=== PATIENT | male | born 1940 | race Caucasian/White ===

== ENCOUNTER 2019-05-25 09:47 | Observation (INO) | payer MEDICARE, BC, SELFPAY ==
[2019-05-25 10:00] VITALS: BMI 27.7
[2019-05-25 10:02] VITALS: BP 124/77; PULSE 82; RESP 18; TEMP 37.1; O2SAT 97
--- NOTE | 2019-05-25 10:07 | ED_ITS ---
Entered by Merline Coburn, acting as scribe for HPI - General Adult General: Chief complaint: General Medical Stated complaint: BLACK STOOL Time Seen by Provider: 05/25/19 09:49 Source: patient Mode of arrival: ambulatory Limitations: no limitations History of Present Illness: HPI narrative: 78 yo male presents with dark stools and diarrhea. pt states this started 2 days ago. pt states nothing makes this better or worse. pt denies any other symptoms at this time. pt denies nausea or vomiting. MD complaint: black stools Onset (ago): day(s) Location: buttocks Radiation: non-radiation Severity: moderate Pain Consistency: constant Relieving factors: none Exacerbating factors: none Associated symptoms: Reports other (diarrhea, black stools); Deny chest pain, dyspnea, headache(s) or rash Treatments prior to arrival: none Review of Systems General: Reports: 10 or more systems reviewed and unremarkable except in HPI and below Const: Denies: fever, chills, body aches or change in appetite Eyes: Denies: blurry vision or eye discomfort ENMT: Denies: throat pain or dental pain Card: Denies: chest pain Resp: Denies: shortness of breath GI: Reports: diarrhea and black tarry stool Musc: Denies: neck pain or back pain Skin/Breast: Denies: rash Neuro: Denies: headache Psych: Denies: depression Bart/Lymph: Denies: easy bruising All/Imm: Denies: hives PFS ED PFSH: Medical History (Updated 05/25/19 @ 12:23 by Naayna Aguilar MD) Aortic stenosis CAD (coronary artery disease) Chronic anticoagulation Chronic kidney disease GERD (gastroesophageal reflux disease) Hiatal hernia History of Sindy-Kirk syndrome History of pulmonary embolism Hypertension Insomnia Systolic congestive heart failure Thoracic aortic aneurysm Surgical History (Updated 05/25/19 @ 11:55 by Bekah Urena DO) History of cholecystectomy History of coronary artery bypass graft 1996 in 2010 History of coronary artery stent placement Reports a total of 3 stents after her last CABG done in [facility] Dr. Rogers [facility] Family History (Updated 05/25/19 @ 11:57 by Bekah Urena DO) Mother Diabetes Father Gallbladder disease Social History Smoking and tobacco status: never smoked Physical Exam Const: COMMON NORMALS: no apparent distress, oriented x3 and healthy appearing HENMT: COMMON NORMALS: normocephalic and head/scalp atraumatic HEAD & SCALP: normocephalic and atraumatic Eye: COMMON NORMALS: PERRL and EOMs intact bilaterally PUPIL: Yes PERRL Neck/C-Spine: COMMON NORMALS: full ROM and supple Chest: COMMONS NORMALS: inspection of chest normal and palpation of chest n ormal Resp: COMMON NORMALS: normal respiratory effort, no retractions, no use of accessory muscles and clear to auscultation bilaterally AUSCULTATION: clear to auscultation bilaterally Cardio: COMMON NORMALS: regular rate, regular rhythm and no murmurs RATE: regular rate RHYTHM: regular rhythm GI: COMMON NORMALS: soft to palpation and non-tender INSPECTION: Yes normal to inspection PALPATION: Yes soft RECTAL EXAM: Yes heme positive stool Extremity: COMMON NORMALS: normal to inspection and full ROM Neuro: COMMON NORMALS: oriented x3, moves all extremities and no focal motor deficits Psych: COMMON NORMALS: mental status grossly normal, thought process normal and cooperative THOUGHT PROCESS: normal thought process Skin: COMMON NORMALS: no rashes or lesions noted and no wounds GENERAL SKIN EXAM: no rashes or lesions noted Course Vital Signs: Vital signs: Vital Signs Temperature 98.7 F 05/25/19 10:02 Pulse Rate 82 05/25/19 10:02 Respiratory Rate 18 05/25/19 10:02 Blood Pressure 124/77 05/25/19 10:02 Pulse Oximetry 97 05/25/19 10:02 MDM - General Adult MDM Narrative: Medical decision making narrative: Patient presents here with upper GI bleed. Patient's rectal exam here showed brown stool that was Hemoccult positive. Bleeding is seem to slowed and has not major at this time. Patient is on Xarelto and will admit for observation to make sure he does not rebleed or hemoglobin drops as he is on thinners. Lab Data: Labs: Lab Results 05/25/19 05/25/19 05/25/19 Range/Units 10:20 10:20 10:20 WBC 7.6 (4.0-10.0) 10^3/ uL RBC 4.04 L (4.1-5.3) 10^6/u L Hgb 13.3 (11.7-16.6) g/dL Hct 39.1 L (42.0-52.0) % MCV 96.8 H (80-94) fL MCH 32.9 (28.0-34.0) pg MCHC 34.0 (30.0-36.0) g/dL RDW 12.7 (12.1-15.1) % Plt Count 156 (130-400) 10^3/c mm MPV 10.9 H (7.4-10.4) fL Neut % (Auto) 74.0 % Lymph % (Auto) 12.8 % [place]osa % (Auto) 8.2 % Eos % (Auto) 4.3 % Baso % (Auto) 0.4 % Neut # (Auto) 5.6 (1.8-7.7) 10^3/u L Lymph # (Auto) 1.0 (0.8-4.8) 10^3/u L [place] # (Auto) 0.6 (0.2-0.9) 10^3/u L Eos # (Auto) 0.3 (0.0-0.8) 10^3/u L Baso # (Auto) 0.0 (0.0-0.1) 10^3/u L Nucleated RBC % (a uto) 0 % Nucleated RBCs # 0.0 /100WBC PT 20.30 H (10.5-13.3) SECO NDS INR 1.67 H (0.8-1.2) Sodium 144 (136-145) mmol/L Potassium 3.8 (3.5-5.1) mmol/L Chloride 107 (98-107) mmol/L Carbon Dioxide 30 H (22-29) mmol/L Anion Gap 10.8 (5-19) BUN 38 H (8-23) mg/dL Creatinine 1.6 H (0.7-1.2) mg/dL Glucose 171 H (65-115) mg/dL Calculated Osmolal ity 300 H (285-295) mOsm/k g Calcium 9.3 (8.5-10.5) mg/dL Total Bilirubin 0.5 (0.15-1.2) mg/dL AST 19 (0-40) U/L ALT 13 (0-41) U/L Alkaline Phosphata se 73 (40-130) IU/L Total Protein 7.0 (6.6-8.7) g/dL Albumin 4.1 (3.5-5.2) g/dL Globulin 2.9 (1.3-4.6) g/dL Blood Type Rho(D) Type Antibody Screen 05/25/19 Range/Units 10:20 WBC (4.0-10.0) 10^3/ uL RBC (4.1-5.3) 10^6/u L Hgb (11.7-16.6) g/dL Hct (42.0-52.0) % MCV (80-94) fL MCH (28.0-34.0) pg MCHC (30.0-36.0) g/dL RDW (12.1-15.1) % Plt Count (130-400) 10^3/c mm MPV (7.4-10.4) fL Neut % (Auto) % Lymph % (Auto) % Coosa % (Auto) % Eos % (Auto) % Baso % (Auto) % Neut # (Auto) (1.8-7.7) 10^3/u L Lymph # (Auto) (0.8-4.8) 10^3/u L [place] # (Auto) (0.2-0.9) 10^3/u L Eos # (Auto) (0.0-0.8) 10^3/u L Baso # (Auto) (0.0-0.1) 10^3/u L Nucleated RBC % (a uto) % Nucleated RBCs # /100WBC PT (10.5-13.3) SECO NDS INR (0.8-1.2) Sodium (136-145) mmol/L Potassium (3.5-5.1) mmol/L Chloride (98-107) mmol/L Carbon Dioxide (22-29) mmol/L Anion Gap (5-19) BUN (8-23) mg/dL Creatinine (0.7-1.2) mg/dL Glucose (65-115) mg/dL Calculated Osmolal ity (285-295) mOsm/k g Calcium (8.5-10.5) mg/dL Total Bilirubin (0.15-1.2) mg/dL AST (0-40) U/L ALT (0-41) U/L Alkaline Phosphata se (40-130) IU/L Total Protein (6.6-8.7) g/dL Albumin (3.5-5.2) g/dL Globulin (1.3-4.6) g/dL Blood Type A Positive Rho(D) Type Positive Antibody Screen Negative Discharge Plan Discharge Patient Disposition: Admitted As Inpatient Clinical Impression: Acute upper GI bleed Condition: Stable Referrals: Aicha Moran MD [Family Provider] - Coding Level of Care Code ED Asphalt Machine Operator for Chg Fwd Exam Comprehensive The documentation recorded by the Almas gerardo Bridget Annette, accurately reflects the service I personally performed and the decisions made by , Nayana Aguilar MD May 25, 2019 09:47
[2019-05-25 10:27] LABS: Basophils % 0.4 %; Eosinophils # 0.3 10^3/uL (0.0-0.8); Eosinophils % 4.3 %; Hematocrit 39.1 % (42.0-52.0); Hemoglobin 13.3 g/dL (11.7-16.6); Lymphocytes % 12.8 %; Mean Corpuscular Hemoglobin 32.9 pg (28.0-34.0); Mean Corpuscular Volume 96.8 fL (80-94); Mean Platelet Volume 10.9 fL (7.4-10.4); Monocytes # 0.6 10^3/uL (0.2-0.9); Monocytes % 8.2 %; Neutrophils # 5.6 10^3/uL (1.8-7.7); Nucleated Red Blood Cells % 0 %; Platelet Count 156 10^3/cmm (130-400); Red Blood Count 4.04 10^6/uL (4.1-5.3); Red Cell Distribution Width 12.7 % (12.1-15.1); White Blood Count 7.6 10^3/uL (4.0-10.0)
[2019-05-25] MEDS: pantoprazole 40 mg SDV 80 MG IVP (10:32)
[2019-05-25] MEDS: pantoprazole 40 MG in sodium chloride 0.9% (plus) 100 ML 20 MG IV (10:32)
[2019-05-25 10:36] LABS: INR 1.67 (0.8-1.2)
[2019-05-25 10:42] LABS: Alanine Aminotransferase 13 U/L (0-41); Albumin Level 4.1 g/dL (3.5-5.2); Alkaline Phosphatase 73 IU/L (40-130); Anion Gap 10.8 (5-19); Aspartate Amino Transferase 19 U/L (0-40); Blood Urea Nitrogen 38 mg/dL (8-23); Calcium 9.3 mg/dL (8.5-10.5); Carbon Dioxide 30 mmol/L (22-29); Chloride 107 mmol/L (98-107); Globulin 2.9 g/dL (1.3-4.6); Glucose 171 mg/dL (65-115); Osmolality Calculated 300 mOsm/kg (285-295); Potassium 3.8 mmol/L (3.5-5.1); Sodium 144 mmol/L (136-145); Total Bilirubin 0.5 mg/dL (0.15-1.2)
--- NOTE | 2019-05-25 11:51 | P.HP_ITS ---
Providers/Chief Complaint Admitting Physician: Bekah Urena DO Chief Complaint: BLACK STOOL History of Present Illness Eliza Grimm is a 78 year old male with a past medical history of aortic stenosis, coronary artery disease and systolic congestive heart failure as well as history of pulmonary embolism that presented to the emergency department today for melanotic stools. Patient reported that Saturday evening he woke up and began having dark tarry like stools. He reported 2 episodes that evening and has continued to have episodes. He thought that it was going to get slightly better but it continued to progress. He stated that he had another episode last night and therefore came into the ER for further evaluation and treatment. He reports that he is on a blood thinner, Xarelto due to a history of pulmonary embolism. He denies any history of GI bleed in the past. He denies any fevers or chills, no abdominal pain. He denies any bright red blood per rectum. He does report that he had a history of a Sindy-Kirk tear many years ago after trying to swallow an apple, he continues to have difficulty swallowing. He reported he did have one episode late last week where he was trying to swallow meat and became choked up, he is uncertain if this contributed to what is currently going on. Patient was seen and evaluated in the emergency department and placed on observation due to concern for GI bleed with reported melanotic stools over the past 2 days while on blood thinners. Review of Systems Const: Denies: fever or chills Eyes: Denies: change in vision ENMT: Denies: nasal congestion Card: Denies: chest pain, palpitations or edema Resp: Denies: shortness of breath, productive cough or coughing up blood GI: Reports: black tarry stool; Denies: abdominal pain, nausea, vomiting, diarrhea, constipation or blood in stool : Denies: painful urination or blood in urine Musc: Denies: extremity pain or muscle cramps Skin/Breast: Reports: rash (Mild erythematous rash on the medial aspect of the right lower extremity); Denies: new lesion Neuro: Denies: headache or dizziness Psych: Denies: anxiety or depression Endo: Denies: excessive urination or hot flashes Bart/Lymph: Denies: easy bruising or easy bleeding Medications/Allergies Home Medications Medication Instructions Recorded Confirmed Last Taken Type amlodipine 5 mg PO DAILY 05/25/19 05/25/19 05/25/19 History aspirin 81 mg PO DAILY 05/25/19 05/25/19 05/24/19 History carvedilol 6.25 mg PO BID 05/25/19 05/25/19 05/25/19 History furosemide 40 mg PO DAILY 05/25/19 05/25/19 05/25/19 History isosorbide mononitrate 30 mg PO DAILY 05/25/19 05/25/19 05/25/19 History rivaroxaban [Xarelto] 20 mg PO DAILY 05/25/19 05/25/19 05/24/19 History tamsulosin 0.4 mg PO DAILY 05/25/19 05/25/19 05/25/19 History Allergies Allergy/AdvReac Type Severity Reaction Status Date / Time nitroglycerin Allergy Unknown Unknown Verified 05/25/19 10:59 rosuvastatin [From Crestor] Allergy Unknown Unknown Verified 05/25/19 10:59 PFSH Acute PFSH: Medical History (Updated 05/25/19 @ 12:23 by Nayana Aguilar MD) Aortic stenosis CAD (coronary artery disease) Chronic anticoagulation Chronic kidney disease GERD (gastroesophageal reflux disease) Hiatal hernia History of Sindy-Kirk syndrome History of pulmonary embolism Hypertension Insomnia Systolic congestive heart failure Thoracic aortic aneurysm Surgical History (Updated 05/25/19 @ 11:55 by Bekah Urena DO) History of cholecystectomy History of coronary artery bypass graft 1996 in 2010 History of coronary artery stent placement Reports a total of 3 stents after her last CABG done in [facility] Dr. Rogers [facility] Family History (Updated 05/25/19 @ 11:57 by Bekah Urena DO) Mother Diabetes Father Gallbladder disease Social History (Updated 05/25/19 @ 12:42 by Bekah Urena DO) Smoking and tobacco status: never smoked Alcohol intake: never Substance/Drug Use: never Caregiver/support person: Yes Household members: spouse Vitals/I&O/Wt Last Vital Signs Temp 98.7 F 05/25/19 10:02 Pulse 82 05/25/19 10:02 Resp 18 05/25/19 10:02 BP 124/77 05/25/19 10:02 Pulse Ox 97 05/25/19 10:02 Weight last 48 hrs Weight 95.254 kg Physical Exam Const: COMMON NORMALS: oriented x3 and alert GENERAL APPEARANCE: cooperative ORIENTATION/CONSCIOUSNESS: Yes awake, Yes oriented to person, Yes oriented to place and Yes oriented to time HENMT: COMMON NORMALS: normocephalic and head/scalp atraumatic HEAD & SCALP: normocephalic and atraumatic Eye: COMMON NORMALS: PERRL PUPIL: Yes PERRL Neck/C-Spine: COMMON NORMALS: supple GENERAL: Yes normal visual inspection Resp: COMMON NORMALS: normal respiratory effort and clear to auscultation bilaterally EFFORT & INSPECTION: Yes able to speak in complete sentences AUSCULTATION: clear to auscultation bilaterally, no rhonchi and no wheezes Cardio: COMMON NORMALS: regular rate and regular rhythm RATE: regular rate RHYTHM: regular rhythm HEART SOUNDS: murmur systolic Intensity: III/ GI: COMMON NORMALS: soft to palpation and non-tender INSPECTION: No abdominal distension AUSCULTATION: Yes normoactive bowel sounds PALPATION: Yes soft : COMMON NORMALS: Yes no CVA tenderness Extremity: COMMON NORMALS: no clubbing, cyanosis or edema and no calf tenderness Neuro: COMMON NORMALS: oriented x3, CN's II-XII intact bilaterally, moves all extremities and no focal motor deficits SENSORIUM/ORIENTATION: Yes alert, Yes oriented to person, Yes oriented to place and Yes oriented to time SPEECH: speech normal Psych: COMMON NORMALS: mental status grossly normal and cooperative Skin: NARRATIVE SKIN EXAM: Mild erythema to the medial calf on the right leg Data : 05/25/19 10:20 05/25/19 10:20 A&P Assessment and plan (1) Melena: Reported melanotic stools for the past 2 days. Hemoglobin stable at this time Due to concern for patient being on chronic anticoagulation with Xarelto due to history of pulmonary embolism will place in observation and obtain serial H&H Patient reports history of Sindy-Kirk tear, episode late last week where he was chewing meat and became choked. Due to concern with swallowing and this episode along with concern for melanotic stools and the possibility of an upper GI bleed Dr. Davila, general surgery, was consulted. Appreciate recommendations and assistance in patient's care. Possible EGD for further evaluation Continue on IV PPI every 12 hours Transfuse if hemoglobin falls less than 8 due to coronary artery disease Status: Acute Code(s): K92.1 - Melena (2) Chronic anticoagulation: Holding chronic anticoagulation, Xarelto. Patient has a history of subsegmental pulmonary embolism Holding aspirin Status: Acute Code(s): Z79.01 - manager ethics (current) use of anticoagulants Additional A&P Information Coronary artery disease with a history of CABG: Holding aspirin due to above. Continue on Coreg and Imdur Moderate to severe aortic stenosis: Followed closely by cardiology, echocardiogram from 01/21/2019 reviewed Combined systolic and diastolic congestive heart failure: Last echocardiogram showed LVEF of 35%, give very gentle IV fluids but monitor fluid status closely. Is on Lasix and Coreg at home, continue to monitor fluid status closely History of subsegmental pulmonary emboli: Holding Xarelto due to above, this finding was on CTA of the chest on 05/30/2018. Discussed with patient the need for holding of anticoagulation due to concern for GI bleed, he verbalized understanding and agreed with plan Thoracic aortic aneurysm, unchanged on last imaging at 1.6 cm. 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 Baseline creatinine appears to be around 1.3-1.5 Hyperglycemia without prior diagnosis of diabetes, will check hemoglobin A1c BPH: Continue home Flomax DVT prophylaxis: SCDs, no pharmacologic prophylaxis due to concern for GI bleed Diet: Clear liquid diet, n.p.o. at midnight for possible EGD CODE STATUS: Limited resuscitation, DO NOT INTUBATE Attestations Medical Necessity Statement*: Observation due to concern for GI bleed, expected stay less than 2 midnights Coding Level of Care Code Acute Cupola Charger for Chg Fwd Diagnoses Melena K92.1 Chronic anticoagulation Z79.01
--- NOTE | 2019-05-25 13:13 | PM.CONSULT ---
Providers/Reason For Consult Consulting Physican/Specialty*: General Surgery Marco Davila MD Reason for Consult*: Melena. History of Present Illness History of Present Illness Eliza Grimm is a 78 year old male who says he had a normal bowel movement Saturday morning (2 days ago). He then had to get up early in the morning to have a bowel movement and says it was loose and black. Every bowel movement he has had since Saturday night has been black. He denies any heartburn or upper GI symptoms. He has not seen any red blood in his stool. He denies any fevers. He has no known history of peptic ulcer disease. This has never happened to him before. He is on Xarelto at home for history of a pulmonary embolism. He takes it at night and so his last dose was yesterday. The patient does mention that he had a tear in his esophagus a few years ago after trying to swallow a piece of apple. It does not sound like anything had to be done about it but he has had some intermittent swallowing problems ever since. He says he feels like meat and vegetables sometimes get hung up in his esophagus and he has to force them back out. He has never seen any blood, etc. when he has to do this. He denies any known family history of upper GI neoplasia. He does not take NSAIDs on a regular basis. Review of Systems General: Reports: 10 or more systems reviewed and unremarkable except in HPI and below GI: Reports: black tarry stool; Denies: abdominal pain or nausea Neuro: Reports: numbness in extremities (Feet) Meds/Allergies Home Medications and Allergies Home Medications Medication Instructions Recorded Confirmed Type amlodipine 5 mg PO DAILY 05/25/19 05/25/19 History aspirin 81 mg PO DAILY 05/25/19 05/25/19 History carvedilol 6.25 mg PO BID 05/25/19 05/25/19 History furosemide 40 mg PO DAILY 05/25/19 05/25/19 History isosorbide mononitrate 30 mg PO DAILY 05/25/19 05/25/19 History rivaroxaban [Xarelto] 20 mg PO DAILY 05/25/19 05/25/19 History tamsulosin 0.4 mg PO DAILY 05/25/19 05/25/19 History Allergies Allergy/AdvReac Type Severity Reaction Status Date / Time rosuvastatin [From Crestor] Allergy Mild Makes me Verified 05/25/19 13:18 looney nitroglycerin Allergy Unknown Makes me Verified 05/25/19 13:18 wild PFSH Acute PFSH: Medical History (Updated 05/25/19 @ 13:22 by Marco Davila MD) Aortic stenosis CAD (coronary artery disease) Chronic anticoagulation Chronic kidney disease Diverticulosis Dyslipidemia GERD (gastroesophageal reflux disease) Hiatal hernia History of Sindy-Kirk syndrome History of pulmonary embolism Hypertension Insomnia Systolic congestive heart failure Thoracic aortic aneurysm Surgical History (Updated 05/25/19 @ 13:20 by Marco Davila MD) History of cataract surgery Bilateral History of cholecystectomy 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 History of coronary artery stent placement Reports a total of 3 stents after her last CABG done in [facility] Dr. Rogers [facility] History of drainage of abscess Percutaneous, right lower quadrant suspected appendiceal abscess Family History Mother Diabetes Father Gallbladder disease Social History Smoking and tobacco status: never smoked Alcohol intake: never Substance/Drug Use: never Caregiver/support person: Yes Household members: spouse Vitals/I&O/Wt Last Vital Signs Temp 98.7 F 05/25/19 10:02 Pulse 82 05/25/19 10:02 Resp 18 05/25/19 10:02 BP 124/77 05/25/19 10:02 Pulse Ox 97 05/25/19 10:02 Weight last 48 hrs Weight 210 lb Physical Exam Narrative: EXAM NARRATIVE: The patient was encountered in the emergency room. He does not appear to be in any acute distress. The pupils are equal. No carotid bruits are heard. The lungs are clear anteriorly. The patient has an obvious systolic murmur best heard at the left lower sternal border or perhaps over the mitral area. The abdomen is mildly obese but is soft and completely nontender. I cannot palpate any masses. The extremities reveal no edema. Neurologically the patient appears to be grossly intact. A&P Assessment and plan (1) Melena: Hemoglobin is stable. The patient is on Xarelto at home, which is obviously contributing to his current problem. He does have a ongoing history of intermittent dysphagia. I discussed an EGD with him. Risks of endoscopy were gone over. The patient would like to find out what is going on. He is agreeable to an EGD tomorrow. I will make the necessary arrangements. Status: Acute Code(s): K92.1 - Melena (2) Dysphagia: See above. Status: Acute Code(s): R13.10 - Dysphagia, unspecified Coding Level of Care Code Acute Visual Educator for [facility] Fwd Diagnoses Melena K92.1 Dysphagia R13.10
[2019-05-25 14:44] VITALS: BP 148/85; PULSE 75; RESP 14; O2SAT 97
[2019-05-25 15:00] VITALS: BP 135/74; PULSE 64; RESP 16; TEMP 36.7; O2SAT 96
[2019-05-25] MEDS: sodium chloride 0.9% 1,000 ML 30 ML IV (15:42)
[2019-05-25] MEDS: tamsulosin 0.4 mg Capsule PO (15:42)
[2019-05-25 16:00] VITALS: BP 127/70; PULSE 56; RESP 16; TEMP 36.7; O2SAT 96
[2019-05-25 16:07] LABS: Hemoglobin 12.8 g/dL (11.7-16.6)
[2019-05-25 17:25] VITALS: PULSE 70; O2SAT 95
[2019-05-25 17:34] LABS: Estmated Average Glucose 100; Hemoglobin A1C 5.1 % (4.0-6.0)
[2019-05-25] MEDS: carvedilol 6.25 mg Tablet PO (17:42)
[2019-05-25 20:44] LABS: Hematocrit 36.6 % (42.0-52.0); Hemoglobin 12.4 g/dL (11.7-16.6)
[2019-05-25] MEDS: pantoprazole 40 mg SDV IVP (21:57)
[2019-05-25 22:34] VITALS: PULSE 81; O2SAT 94
[2019-05-26] VITALS (7 sets, daily range): BP systolic 112–145; BP diastolic 67–88; PULSE 70–87; RESP 16–22; TEMP 36.6–37.2; O2SAT 93–98
[2019-05-26 02:50] LABS: Basophils % 0.4 %; Eosinophils # 0.3 10^3/uL (0.0-0.8); Eosinophils % 3.8 %; Hematocrit 35.7 % (42.0-52.0); Hemoglobin 12.1 g/dL (11.7-16.6); Lymphocytes % 12.6 %; Mean Corpuscular HGB Conc 33.9 g/dL (30.0-36.0); Mean Corpuscular Hemoglobin 33.2 pg (28.0-34.0); Mean Corpuscular Volume 97.8 fL (80-94); Mean Platelet Volume 11.2 fL (7.4-10.4); Monocytes # 0.8 10^3/uL (0.2-0.9); Monocytes % 10.3 %; Neutrophils # 5.9 10^3/uL (1.8-7.7); Neutrophils % 72.7 %; Nucleated Red Blood Cells % 0 %; Platelet Count 133 10^3/cmm (130-400); Red Blood Count 3.65 10^6/uL (4.1-5.3); Red Cell Distribution Width 12.2 % (12.1-15.1); White Blood Count 8.2 10^3/uL (4.0-10.0)
[2019-05-26 03:08] LABS: Anion Gap 11.8 (5-19); Blood Urea Nitrogen 29 mg/dL (8-23); Carbon Dioxide 26 mmol/L (22-29); Chloride 110 mmol/L (98-107); Glucose 112 mg/dL (65-115); Osmolality Calculated 296 mOsm/kg (285-295); Potassium 3.8 mmol/L (3.5-5.1); Sodium 144 mmol/L (136-145)
--- NOTE | 2019-05-26 06:48 | P.PN_ITS ---
Subjective Subjective: Interval history: No further bowel movement since I talked to the patient yesterday. He has no new upper GI symptoms. Vitals/I&O/Wt Last Vital Signs Temp 99.0 F 05/26/19 06:24 Pulse 70 05/26/19 06:24 Resp 18 05/26/19 06:24 BP 145/82 05/26/19 06:24 Pulse Ox 96 05/26/19 06:24 05/25/19 05/25/19 05/26/19 14:59 22:59 06:59 Intake Total 680 / 680 Output Total 550 / 550 100 / 650 Balance 130 / 130 -100 / 30 Weight last 48 hrs Weight 212 lb 9.6 oz Weight 210 lb Physical Exam Narrative: EXAM NARRATIVE: Exam remains essentially unchanged. Data : 05/26/19 02:43 05/26/19 02:43 A&P Assessment and plan (1) Melena: Hemoglobin remains relatively stable. EGD this morning. Status: Acute Code(s): K92.1 - Melena (2) Dysphagia: See above. Status: Acute Code(s): R13.10 - Dysphagia, unspecified Attestations Medical Necessity Statement*: See admitting service's notation. Coding Level of Care Code Acute Calliope Player for [facility] Fwd Diagnoses Melena K92.1 Dysphagia R13.10
--- NOTE | 2019-05-26 06:51 | P.ANESASSM_ITS ---
Pre-Anesthetic Assessment Pre-Anesthetic Assessment: Height/Weight: Height 1.85 m Weight 96.434 kg Temp Pulse Resp BP Pulse Ox 99.0 F 70 18 145/82 96 05/26/19 06:24 05/26/19 06:24 05/26/19 06:24 05/26/19 06:24 05/26/19 06:24 Preop Diagnosis: melena Proposed Procedure: Operation Date: 05/26/19 07:30 Proposed Procedures p EGD(Not Applicable) - Marco Davila MD Familial anesthetic complications: none Was Beta Jose Ramon taken within 24 hours: Yes Last intake: Intake Last Liquid Date 05/25/19 Last Liquid Time 20:00 Last Solid Date 05/25/19 Last Solid Time 20:00 Social: Social History: No alcohol and No tobacco Exam: Pre-Anes Outpt Exam: alert, oriented x 3, clear to auscultation bilaterally and regular rate & rhythm Airway: Submandibular: WNL Cervical ROM: WNL MP: 1 Dentition: False History/ROS: No significant history except as noted Pulmonary: Pulmonary: SOB Comments: O2 nasal cannula at night history of PE CV/HEM: CV/HEM: CHF and HTN Comments: thoracic aortic aneurysm aortic stenosis : : Chronic renal failure Hepatic: Hepatic: None reported GI: GI: GERD and Hiatus hernia Metabolic: Metabolic: Hyperlipidemia Musc/skel: Musc/skel: Lower Back Pain and Weakness (weakness in legs and feet) Neuropsych: Neuropsych: Dementia Anesthetic Plan: ASA status: 3 Anesthesia: MAC Risk of > 500 ml blood loss (7ml/kg in children): No Meds/Allergies Current Medications: Current Medications Generic Name Dose Route Start Last Admin Trade Name Freq PRN Reason Stop Dose Admin Carvedilol 6.25 mg 05/25/19 18:00 05/25/19 17:42 Coreg PO 6.25 mg BID ESTER Administration Sodium Chloride 1,000 mls @ 30 ml s/hr 05/25/19 15:00 05/25/19 15:42 Sodium Chloride 0.9% IV 30 mls/hr .Q24H ESTER Administration Pantoprazole Sodiu m 40 mg 05/25/19 22:30 05/25/19 21:57 Protonix IVP 40 mg Q12H ESTER Administration Tamsulosin HCl 0.4 mg 05/25/19 15:00 05/25/19 15:42 Flomax PO 0.4 mg DAILY ESTER Administration PFSH Anesthesia PFSH: Medical History (Updated 05/25/19 @ 13:22 by Marco Davila MD) Aortic stenosis CAD (coronary artery disease) Chronic anticoagulation Chronic kidney disease Diverticulosis Dyslipidemia GERD (gastroesophageal reflux disease) Hiatal hernia History of Sindy-Kirk syndrome History of pulmonary embolism Hypertension Insomnia Systolic congestive heart failure Thoracic aortic aneurysm Surgical History (Updated 05/25/19 @ 13:20 by Marco Davila MD) History of cataract surgery Bilateral History of cholecystectomy 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 History of coronary artery stent placement Reports a total of 3 stents after her last CABG done in [facility] History of drainage of abscess Percutaneous, right lower quadrant suspected appendiceal abscess Family History Mother Diabetes Father Gallbladder disease Social History Smoking and tobacco status: never smoked Alcohol intake: never Substance/Drug Use: never Caregiver/support person: Yes Household members: spouse Data Anesthesia CBC & Chem 7: 05/26/19 02:43 05/26/19 02:43 Other Labs: Laboratory Results - last 48 hr 05/25/19 05/25/19 05/25/19 10:20 10:20 10:20 WBC 7.6 RBC 4.04 L Hgb 13.3 Hct 39.1 L MCV 96.8 H MCH 32.9 MCHC 34.0 RDW 12.7 Plt Count 156 MPV 10.9 H Neut % (Auto) 74.0 Lymph % (Auto) 12.8 [place] % (Auto) 8.2 Eos % (Auto) 4.3 Baso % (Auto) 0.4 Neut # (Auto) 5.6 Lymph # (Auto) 1.0 [place] # (Auto) 0.6 Eos # (Auto) 0.3 Baso # (Auto) 0.0 Nucleated RBC % (auto) 0 Nucleated RBCs # 0.0 PT 20.30 H INR 1.67 H Sodium 144 Potassium 3.8 Chloride 107 Carbon Dioxide 30 H Anion Gap 10.8 BUN 38 H Creatinine 1.6 H Glucose 171 H Estimat Average Glucose Hemoglobin A1c Calculated Osmolality 300 H Calcium 9.3 Total Bilirubin 0.5 AST 19 ALT 13 Alkaline Phosphatase 73 Total Protein 7.0 Albumin 4.1 Globulin 2.9 Blood Type Rho(D) Type Antibody Screen 05/25/19 05/25/19 05/25/19 10:20 15:23 15:23 WBC RBC Hgb 12.8 Hct 38.0 L MCV MCH MCHC RDW Plt Count MPV Neut % (Auto) Lymph % (Auto) [place] % (Auto) Eos % (Auto) Baso % (Auto) Neut # (Auto) Lymph # (Auto) [place] # (Auto) Eos # (Auto) Baso # (Auto) Nucleated RBC % (auto) Nucleated RBCs # PT INR Sodium Potassium Chloride Carbon Dioxide Anion Gap BUN Creatinine Glucose Estimat Average Glucose 100 Hemoglobin A1c 5.1 Calculated Osmolality Calcium Total Bilirubin AST ALT Alkaline Phosphatase Total Protein Albumin Globulin Blood Type A Positive Rho(D) Type Positive Antibody Screen Negative 05/25/19 05/26/19 05/26/19 20:40 02:43 02:43 WBC 8.2 RBC 3.65 L Hgb 12.4 12.1 Hct 36.6 L 35.7 L MCV 97.8 H MCH 33.2 MCHC 33.9 RDW 12.2 Plt Count 133 MPV 11.2 H Neut % (Auto) 72.7 Lymph % (Auto) 12.6 [place] % (Auto) 10.3 Eos % (Auto) 3.8 Baso % (Auto) 0.4 Neut # (Auto) 5.9 Lymph # (Auto) 1.0 [place] # (Auto) 0.8 Eos # (Auto) 0.3 Baso # (Auto) 0.0 Nucleated RBC % (auto) 0 Nucleated RBCs # 0.0 PT INR Sodium 144 Potassium 3.8 Chloride 110 H Carbon Dioxide 26 Anion Gap 11.8 BUN 29 H Creatinine 1.4 H Glucose 112 Estimat Average Glucose Hemoglobin A1c Calculated Osmolality 296 H Calcium 9.0 Total Bilirubin AST ALT Alkaline Phosphatase Total Protein Albumin Globulin Blood Type Rho(D) Type Antibody Screen Cardiac Studies: No Data to Display
[2019-05-26] MEDS: sodium chloride 0.9% 1,000 ML 30 ML (07:03)
--- NOTE | 2019-05-26 07:14 | ANE.PACU2 ---
 Inpatient post-anesthesia follow up: Airway intact: Yes Vital signs: Temperature 98.6 F Pulse Rate 78 Respiratory Rate 16 Blood Pressure 126/77 Pulse Oximetry 98 Oxygen Delivery Me thod [ Room Air Current Rate & Del frederick] Oxygen Delivery Me thod Nasal Cannula Oxygen Flow Rate 2 Fraction of Inspir ed Oxygen Hydration adequate: Yes Nausea and vomiting: No Pain level: 1 Mental status: Baseline
--- NOTE | 2019-05-26 08:58 | P.DS_ITS ---
Discharge Providers Date of Admission: 05/25/19 11:42 Date of Discharge: May 26, 2019 Attending Provider at Admission: Bekah Urena DO Attending Provider at Discharge: Bekah Urena DO Diagnoses at Discharge Discharge Diagnosis (1) Melena: Status: Acute (2) Dysphagia: Status: Acute Reason for Visit Reason for Visit: Reason For Visit: BLACK STOOL Hospital Course Hospital Course: Patient was seen and evaluated in the emergency department and placed on observation due to concern for melanotic stools over the past 2 days while being on blood thinner. General surgeon was consulted and patient was started on IV Protonix every 12 hours due to concern for upper GI bleed with reported history of difficulty swallowing and history of Sindy-Kirk tear. Blood thinner was held and aspirin was held. Patient had no further melanotic stools throughout his hospital admission and was taken for EGD on date of discharge. EGD showed no evidence of any active bleeding and hemoglobin remained stable at 12. Patient's vital signs remained stable and on date of discharge she denied any abdominal pain, no lightheadedness or dizziness, no further melanotic stools. Discussed with patient plan to hold on home Xarelto at this time until follow-up with his primary care provider in 3 to 5 days. Patient verbalized understanding and agreed with plan. On date of discharge she denied any chest pain, no shortness of breath, no abdominal pain or nausea Physical Exam Const: COMMON NORMALS: oriented x3 and alert GENERAL APPEARANCE: cooperative ORIENTATION/CONSCIOUSNESS: Yes awake, Yes oriented to person, Yes oriented to place and Yes oriented to time HENMT: COMMON NORMALS: normocephalic and head/scalp atraumatic HEAD & SCALP: normocephalic and atraumatic Eye: COMMON NORMALS: PERRL PUPIL: Yes PERRL Neck/C-Spine: COMMON NORMALS: supple GENERAL: Yes normal visual inspection Resp: COMMON NORMALS: normal respiratory effort and clear to auscultation bilaterally EFFORT & INSPECTION: Yes able to speak in complete sentences AUSCULTATION: clear to auscultation bilaterally, no rhonchi and no wheezes Cardio: COMMON NORMALS: regular rate and regular rhythm RATE: regular rate RHYTHM: regular rhythm HEART SOUNDS: murmur systolic Intensity: III/ GI: COMMON NORMALS: soft to palpation and non-tender INSPECTION: No ab dominal distension AUSCULTATION: Yes normoactive bowel sounds PALPATION: Yes soft : COMMON NORMALS: Yes no CVA tenderness BLADDER/KIDNEY EXAM: Yes no CVA tenderness Back/Pelvis: COMMON NORMALS: no CVA tenderness Extremity: COMMON NORMALS: no clubbing, cyanosis or edema and no calf tenderness Neuro: COMMON NORMALS: oriented x3, CN's II-XII intact bilaterally, moves all extremities and no focal motor deficits SENSORIUM/ORIENTATION: Yes alert, Yes oriented to person, Yes oriented to place and Yes oriented to time SPEECH: speech normal Psych: COMMON NORMALS: mental status grossly normal and cooperative Discharge Data Data Completed and Pending: Labs from last 24 hours 05/26/19 05/26/19 05/25/19 02:43 02:43 20:40 WBC 8.2 RBC 3.65 L Hgb 12.1 12.4 Hct 35.7 L 36.6 L MCV 97.8 H MCH 33.2 MCHC 33.9 RDW 12.2 Plt Count 133 MPV 11.2 H Neut % (Auto) 72.7 Lymph % (Auto) 12.6 [place] % (Auto) 10.3 Eos % (Auto) 3.8 Baso % (Auto) 0.4 Neut # (Auto) 5.9 Lymph # (Auto) 1.0 [place] # (Auto) 0.8 Eos # (Auto) 0.3 Baso # (Auto) 0.0 Nucleated RBC % (a uto) 0 Nucleated RBCs # 0.0 PT INR Sodium 144 Potassium 3.8 Chloride 110 H Carbon Dioxide 26 Anion Gap 11.8 BUN 29 H Creatinine 1.4 H Glucose 112 Estimat Average Gl ucose Hemoglobin A1c Calculated Osmolal ity 296 H Calcium 9.0 Total Bilirubin AST ALT Alkaline Phosphata se Total Protein Albumin Globulin Blood Type Rho(D) Type Antibody Screen 05/25/19 05/25/19 05/25/19 15:23 15:23 10:20 WBC RBC Hgb 12.8 Hct 38.0 L MCV MCH MCHC RDW Plt Count MPV Neut % (Auto) Lymph % (Auto) [place] % (Auto) Eos % (Auto) Baso % (Auto) Neut # (Auto) Lymph # (Auto) [place] # (Auto) Eos # (Auto) Baso # (Auto) Nucleated RBC % (a uto) Nucleated RBCs # PT INR Sodium Potassium Chloride Carbon Dioxide Anion Gap BUN Creatinine Glucose Estimat Average Gl ucose 100 Hemoglobin A1c 5.1 Calculated Osmolal ity Calcium Total Bilirubin AST ALT Alkaline Phosphata se Total Protein Albumin Globulin Blood Type A Positive Rho(D) Type Positive Antibody Screen Negative 05/25/19 05/25/19 05/25/19 10:20 10:20 10:20 WBC 7.6 RBC 4.04 L Hgb 13.3 Hct 39.1 L MCV 96.8 H MCH 32.9 MCHC 34.0 RDW 12.7 Plt Count 156 MPV 10.9 H Neut % (Auto) 74.0 Lymph % (Auto) 12.8 [place] % (Auto) 8.2 Eos % (Auto) 4.3 Baso % (Auto) 0.4 Neut # (Auto) 5.6 Lymph # (Auto) 1.0 [place] # (Auto) 0.6 Eos # (Auto) 0.3 Baso # (Auto) 0.0 Nucleated RBC % (a uto) 0 Nucleated RBCs # 0.0 PT 20.30 H INR 1.67 H Sodium 144 Potassium 3.8 Chloride 107 Carbon Dioxide 30 H Anion Gap 10.8 BUN 38 H Creatinine 1.6 H Glucose 171 H Estimat Average Gl ucose Hemoglobin A1c Calculated Osmolal ity 300 H Calcium 9.3 Total Bilirubin 0.5 AST 19 ALT 13 Alkaline Phosphata se 73 Total Protein 7.0 Albumin 4.1 Globulin 2.9 Blood Type Rho(D) Type Antibody Screen Vitals: Last Vital Signs Temp 98.6 F 05/26/19 07:11 Pulse 78 05/26/19 07:11 Resp 16 05/26/19 07:11 BP 126/77 05/26/19 07:11 Pulse Ox 98 05/26/19 07:11 Discharge Plan Discharge Patient Disposition: Home, Self-Care Condition: Stable Prescriptions: New pantoprazole 40 mg tablet,delayed release (DR/EC) 40 mg PO DAILY 30 Days Qty: 30 RF: 0 Continued furosemide 40 mg tablet 40 mg PO DAILY RF: 0 carvedilol 6.25 mg Tablet 6.25 mg PO BID RF: 0 isosorbide mononitrate 30 mg tablet extended release 24 hr 30 mg PO DAILY RF: 0 amlodipine 5 mg tablet 5 mg PO DAILY RF: 0 tamsulosin 0.4 mg capsule 0.4 mg PO DAILY RF: 0 aspirin 81 mg Tablet,Chewable 81 mg PO DAILY RF: 0 Held Xarelto 20 mg tablet 20 mg PO DAILY RF: 0 Hold Instructions: Resume on 06/02/19. Hold until follow-up with your primary care provider and further instructed to continue Discharge Orders: Discharge Order (Routine); Ordered 05/26/19 Ordered By: Bekah Urena Referrals: Aicha Moran MD [Family Provider] - 1-3 days (Follow-up with your primary care provider in 2 to 3 days. Hold home blood thinner until that time, continue on blood thinner as instructed by your primary care provider) Discharge Diet: Advance as tolerated, Cardiac and Full LIquid Discharge Activity: Increase activity as tolerated Activity Restrictions/Additional Instructions: Hold home Xarelto at this time. Follow-up with your primary care provider in 2 to 3 days, restart home Xarelto as instructed by your primary care provider at that time. Continue other medications as prescribed Continue to monitor stools for any black, tar-like stools, and present to the ED for any continued concerns for bleeding Follow up with cardiology as scheduled Call your physician or present to the ED for any acute illness or concern Discharge Attestations Time Spent in Discharge Care*: greater than 30 min Quality Metrics Clinical Quality Measures During this hospital stay, did patient experience: None Coding Level of Care Code Acute Senior Data Warehouse Developer for Gilbert Bettencourt Diagnoses Melena K92.1 Dysphagia R13.10
--- NOTE | 2019-05-26 11:16 | PC.CHAP ---
Pastoral Care Encounter/Spiritual Assessment Type of Contact [] Declined studio designer visit [] Patient/Family/Request visit [] Outpatient visit [] Follow-up visit [] Physician referral [] Code/Alert [x] Routine visit [] Staff referral [] Actively dying [] Patient sleeping [] Family support [] [] Out of room [] Palliative care [] [] Receiving care in room [] Pre-surgical visit [] Trauma [] Long length of stay [] ICU visit [] Other: Relational/Emotional Strength [x] Patient feels connected with others/family/visitors/staff [] Distress [] Loneliness/isolation [] Abandonment Spirituality of Patient [x] Person of Irene [x] Attends Adventist of their Irene [x] Believes in Prayer [x] Reads Bible or Buddhism materials [] There are Spiritual issues to be addressed Credit Assistant Interventions [x] Prayer [x] Active listening [x] Non-anxious presence [x] Spiritual/emotional support [] Crisis/trauma care x] Spiritual counseling [] Bereavement support [] Provided bereavement packet [] Provided Bible/devotional materials [] Provided toy/stuffed animal, coloring book to patient or family member [] Provided Communion [] Anointing/[place] [] Salvation [] Completed spiritual assessment [] Other: Impact on Illness or Injury [] Angry [] Fearful [] Anxious [] Often cries [] Exhaustion [] Unable to work [] Unable to attend sabianism [] Unable to walk/stand [] Unable to read [] Unable to drive [] Unable to eat/drink [] Unable to sleep [] Unable to be with family [] Patient intubated [x] Other: Summary Patient is strong in his irene and was awaiting his discharge from the hospital. Time spent with patient 5 minutes
== END 2019-05-26 10:00 | disposition home or self-care (01) ==
LOC: ER 13:12 → MEDSURG 05-26 09:02
PROVIDERS: Surgery; Admitting Provider Family Medicine; Emergency Provider Emergency Medicine; Family Provider Family Medicine; Visit Provider Family Medicine
PROC: 0DJ08ZZ Inspection of Upper Intestinal Tract, Via Natural or Artificial Opening Endoscopic (ICD-10-PCS; CPT 43235; principal; 2019-05-26 07:30)
DX: K92.1 Melena (principal); R13.10 Dysphagia, unspecified; Z79.01 Long term (current) use of anticoagulants; I13.0 Hypertensive heart and chronic kidney disease with heart failure and stage 1 through stage 4 chronic kidney disease, or unspecified chronic kidney disease; N18.9 Chronic kidney disease, unspecified; I50.40 Unspecified combined systolic (congestive) and diastolic (congestive) heart failure; Z95.1 Presence of aortocoronary bypass graft; I35.0 Nonrheumatic aortic (valve) stenosis; N40.0 Benign prostatic hyperplasia without lower urinary tract symptoms; Z79.82 Long term (current) use of aspirin; K21.9 Gastro-esophageal reflux disease without esophagitis; Z83.3 Family history of diabetes mellitus; K44.9 Diaphragmatic hernia without obstruction or gangrene; Z86.711 Personal history of pulmonary embolism; E78.5 Hyperlipidemia, unspecified; F03.90 Unspecified dementia, unspecified severity, without behavioral disturbance, psychotic disturbance, mood disturbance, and anxiety
CPT/HCPCS: 12345; 36415; 43235; 80048; 80053; 83036; 85014; 85018; 85025; 85610; 86850; 86900; 96365; 96366; 96375; 99282; 99285; C9113; G0378; J2001; J2704; J7030; J7050

== ENCOUNTER 2020-01-25 11:00 | Outpatient (CLI) | payer MEDICARE, BC, SELFPAY | END 2020-01-25 11:01 | disposition home or self-care (01) | LOC: SLEEP 01-27 11:04 | PROVIDERS: Family Provider Family Medicine; PCP Family Medicine; Visit Provider Family Medicine | DX: I35.0 Nonrheumatic aortic (valve) stenosis (principal) | CPT/HCPCS: 94762 ==

== ENCOUNTER 2020-05-05 12:23 | Outpatient (CLI) | payer MEDICARE, BC, SELFPAY ==
--- NOTE | 2020-05-05 12:45 | USCV_ITS ---
Surface, Eliza Age: 79 Gender: M : 1940 Exam Date: 05/05/2020 12:34 Ordering Phys: Adam Puckett MD ([email or web address]) Technologist: Antonette Scott [place] [facility] [place]: Aortic stenosis BP: 125 / 68 HR: 53 Rhythm: Sinus Technical Quality: Adequate MEASUREMENTS (Male / Female) Normal Values 2D ECHO LV Diastolic Diameter PLAX 4.6 cm 4.2 - 5.9 / 3.9 - 5.3 cm LV Systolic Diameter PLAX 3.9 cm LV Chamber Size 3.7 cm IVS Diastolic Thickness 1.3 cm 0.6 - 1.0 / 0.6 - 0.9 cm IVS Systolic Thickness 1.4 cm LVPW Diastolic Thickness 2.4 cm 0.6 - 1.0 / 0.6 - 0.9 cm LVPW Systolic Thickness 2.0 cm RV Chamber Size 3.8 cm LVOT Diameter 2.0 cm LV Ejection Fraction 2D Teich 31.7 % LV Ejection Fraction MOD 2C 41.6 % LV Ejection Fraction 2C AL 45.0 % LA Diameter 3.3 cm LA Width 4.0 cm LA Height 4.8 cm RA Width 3.1 cm RA Height 4.0 cm Aorta at Sinotubular Diameter 2.7 cm M-MODE LV Diastolic Diameter MM 4.9 cm 4.2 - 5.9 / 3.9 - 5.3 cm LV Systolic Diameter MM 4.0 cm LV Ejection Fraction MM Teich 39.5 % IVS Diastolic Thickness MM 1.3 cm 0.6 - 1.0 / 0.6 - 0.9 cm IVS Systolic Thickness MM 1.3 cm LVPW Diastolic Thickness MM 1.1 cm 0.6 - 1.0 / 0.6 - 0.9 cm LVPW Systolic Thickness MM 1.5 cm Aortic Annulus Diameter 3.7 cm LA Ao Ratio MM 0.8 MV E Point Septal Separation 2.6 cm DOPPLER AV Peak Velocity 295.0 cm/s LVOT Peak Velocity 101.7 cm/s AV Area Cont Eq vti 1.2 cm squared AV Area Cont Eq pk 1.1 cm squared MV Area PHT 2.8 cm squared Mitral E to A Ratio 0.7 MV E' Velocity 38.5 cm/s Mitral E to MV E' Ratio 7.0 Mitral E to LV E' Lateral Ratio 5.4 Mitral E to LV E' Septal Ratio 10.1 TR Peak Velocity 129.0 cm/s TR Peak Gradient 6.7 mmHg TV Peak E Velocity 70.0 cm/s Right Atrial Pressure 3.0 mmHg Pulmonary Artery Systolic Pressu 9.7 mmHg PV Peak Velocity 60.0 cm/s RV Acceleration Time 0.2 s RV Ejection Time 0.4 s RV AcT/ET 0.4 FINDINGS Left Ventricle Mildly increased left ventricular cavity size. Moderately decreased left ventricular systolic function. Global left ventricular hypokinesis. Left ventricular ejection fraction is estimated at 40 %. Grade I/IV diastolic dysfunction (abnormal relaxation filling pattern), normal to mildly elevated filling pressures. Right Ventricle The right ventricle is normal in size and function. Right Atrium The right atrium is normal in size. Left Atrium Moderately increased left atrial size. Mitral Valve Moderately thickened mitral valve. Moderate mitral annular calcification. No mitral valve stenosis. Moderate mitral valve regurgitation. Aortic Valve Severe aortic valve calcification. Moderate aortic valve stenosis, mean gradient 18 mmHg, BEATRIZ 1.2 cm squared. Velocity across the aortic valve is 2.96 m/s, moderate aortic valve regurgitation. Tricuspid Valve Structurally normal tricuspid valve without significant stenosis or regurgitation. Pulmonary artery systolic pressure is normal. Pulmonic Valve Structurally normal pulmonic valve without significant stenosis. There is no pulmonic regurgitation. Pericardium Normal pericardium without effusion. Aorta Normal ascending aorta dimension. CONCLUSIONS 1-Mildly increased left ventricular cavity size. Moderately decreased left ventricular systolic function. Global left ventricular hypokinesis. Left ventricular ejection fraction is estimated at 40 %. Grade I/IV diastolic dysfunction (abnormal relaxation filling pattern), normal to mildly elevated filling pressures. 2-Severe aortic valve calcification. Moderate aortic valve stenosis, mean gradient 18 mmHg, BEATRIZ 1.2 cm squared. Velocity across the aortic valve is 2.96 m/s, moderate aortic valve regurgitation. 3-Moderately thickened mitral valve. Moderate mitral annular calcification. No mitral valve stenosis. Moderate mitral valve regurgitation. 4-There is no pericardial effusion. 5-Pulmonary artery systolic pressure is within normal limits. 6-Right atrial pressure is around 5 mm of mercury. 7-When compared to the prior echocardiogram dated 21 January 2019 there is no significant difference Adam Puckett MD (Electronically Signed) Final Date: 07 May 2020 15:22 S
== END 2020-05-05 12:24 | disposition home or self-care (01) ==
LOC: US 12:24
PROVIDERS: PCP Family Medicine; Visit Provider Internal Medicine Cardiovascular Disease
DX: I08.0 Rheumatic disorders of both mitral and aortic valves (principal)
CPT/HCPCS: 93306

== ENCOUNTER → 2020-06-20 14:57 | Outpatient (BNVA) | payer MEDICARE, BC, SELFPAY | PROVIDERS: PCP Family Medicine; Visit Provider Family Medicine | DX: I25.810 Atherosclerosis of coronary artery bypass graft(s) without angina pectoris; I50.22 Chronic systolic (congestive) heart failure; E78.5 Hyperlipidemia, unspecified; F32.9 Major depressive disorder, single episode, unspecified; G47.33 Obstructive sleep apnea (adult) (pediatric); F34.1 Dysthymic disorder; E03.9 Hypothyroidism, unspecified; N18.2 Chronic kidney disease, stage 2 (mild); Z68.26 Body mass index [BMI] 26.0-26.9, adult | CPT/HCPCS: 80053; 84443; 85025 ==

== ENCOUNTER 2020-06-29 12:00 | Outpatient (CLI) | payer MEDICARE, BC, SELFPAY | END 2020-06-29 12:01 | disposition home or self-care (01) | LOC: SLEEP 06-30 10:29 | PROVIDERS: PCP Family Medicine; Visit Provider Family Medicine | DX: G47.33 Obstructive sleep apnea (adult) (pediatric) (principal) | CPT/HCPCS: G0399 ==

== ENCOUNTER 2020-08-16 20:00 | Outpatient (CLI) | payer MEDICARE, BC, SELFPAY | END 2020-08-16 20:01 | disposition home or self-care (01) | LOC: SLEEP 08-17 09:20 | PROVIDERS: PCP Family Medicine; Visit Provider Family Medicine | DX: G47.33 Obstructive sleep apnea (adult) (pediatric) (principal) | CPT/HCPCS: 95811 ==

== ENCOUNTER → 2020-11-01 11:06 | Outpatient (BNVA) | payer MEDICARE, BC, SELFPAY | PROVIDERS: PCP Family Medicine; Visit Provider Family Medicine | DX: N18.2 Chronic kidney disease, stage 2 (mild) (principal); G47.33 Obstructive sleep apnea (adult) (pediatric); E03.9 Hypothyroidism, unspecified | CPT/HCPCS: 80048; 84443 ==

== ENCOUNTER → 2021-05-29 13:32 | Outpatient (BNVA) | payer MEDICARE, BC, SELFPAY | PROVIDERS: PCP Family Medicine; Visit Provider Internal Medicine Cardiovascular Disease | DX: I35.0 Nonrheumatic aortic (valve) stenosis (principal); E03.9 Hypothyroidism, unspecified; E78.5 Hyperlipidemia, unspecified | CPT/HCPCS: 99214; 99215 ==

== ENCOUNTER 2021-06-16 06:29 | Outpatient (CLI) | payer MEDICARE, BC, SELFPAY ==
--- NOTE | 2021-06-16 10:00 | USCV_ITS ---
Surface, Eliza Age: 80 Gender: M : 1940 Exam Date: 06/16/2021 06:54 Ordering Phys: Troy Evans MD ([email or web address]) Technologist: Eugenia Hawkins Exam Location: [facility] – [place] Indication: CABG WITH BP: / HR: 64 Rhythm: Sinus Technical Quality: Adequate MEASUREMENTS (Male / Female) Normal Values 2D ECHO LV Diastolic Diameter PLAX 4.6 cm 4.2 - 5.9 / 3.9 - 5.3 cm LV Systolic Diameter PLAX 3.4 cm LV Chamber Size 4.4 cm IVS Diastolic Thickness 1.0 cm 0.6 - 1.0 / 0.6 - 0.9 cm IVS Systolic Thickness 1.7 cm LVPW Diastolic Thickness 1.2 cm 0.6 - 1.0 / 0.6 - 0.9 cm LVPW Systolic Thickness 1.3 cm RV Chamber Size 3.5 cm LVOT Diameter 2.1 cm LV Ejection Fraction 2D Teich 50.4 % LV Ejection Fraction MOD 2C 26.8 % LV Ejection Fraction 2C AL 26.3 % LA Diameter 3.1 cm LA Width 4.3 cm LA Height 4.0 cm RA Width 3.7 cm RA Height 3.8 cm Aorta at Sinotubular Diameter 2.6 cm M-MODE Aortic Annulus Diameter 4.2 cm LA Ao Ratio MM 1.1 MV E Point Septal Separation 2.4 cm DOPPLER AV Peak Velocity 270.7 cm/s LVOT Peak Velocity 81.0 cm/s AV Area Cont Eq vti 0.9 cm squared AV Area Cont Eq pk 1.0 cm squared MV Area PHT 2.0 cm squared Mitral E to A Ratio 0.8 MV E' Velocity 38.0 cm/s Mitral E to MV E' Ratio 11.9 Mitral E to LV E' Lateral Ratio 9.6 Mitral E to LV E' Septal Ratio 15.7 TR Peak Velocity 290.7 cm/s TR Peak Gradient 33.8 mmHg TR Mean Velocity 223.2 cm/s TR Mean Gradient 21.9 mmHg TR Velocity Time Integral 80.1 cm TV Peak E Velocity 54.0 cm/s Right Atrial Pressure 3.0 mmHg Pulmonary Artery Systolic Pressu 36.8 mmHg PV Peak Velocity 48.0 cm/s RV Acceleration Time 0.1 s RV Ejection Time 0.3 s RV AcT/ET 0.3 FINDINGS Left Ventricle Mild diffuse hypokinesia of the left ventricle with an ejection fraction of 45- 50%(visual). Mild concentric left tubular hypertrophy.Grade I/IV diastolic dysfunction (abnormal relaxation filling pattern), normal to mildly elevated filling pressures. Right Ventricle The right ventricle is normal in size and function. Right Atrium Normal right atrial size. Left Atrium Mildly increased left atrial size. Mitral Valve Mild mitral valve regurgitation. Thickened mitral valve. Mild mitral annular calcification. Aortic Valve [id number] aortic valve regurgitation. Severe low gradient aortic valve stenosis, mean gradient 16.9 mmHg, BEATRIZ 0.94 cm squared. The peak velocity was 2.7 m/s with a peak gradient of 29 mmHg Tricuspid Valve Trace tricuspid valve regurgitation. Estimated pulmonary artery peak systolic pressure of 37 mmHg Pulmonic Valve Pulmonic valve not well visualized. Pericardium No pericardial effusion. Aorta Normal aortic annulus size. CONCLUSIONS Mild diffuse hypokinesia of the left ventricle with an ejection fraction of 45- 50%(visual). Mild concentric left tubular hypertrophy.Grade I/IV diastolic dysfunction (abnormal relaxation filling pattern), normal to mildly elevated filling pressures. Mildly increased left atrial size. Mild mitral valve regurgitation. Thickened mitral valve. Mild mitral annular calcification. Severe low gradient aortic valve stenosis, mean gradient 16.9 mmHg, BEATRIZ 0.94 cm squared. The peak velocity was 2.7 m/s with a peak gradient of 29 mmHg. [id number] aortic valve regurgitation. Trace tricuspid valve regurgitation. Estimated pulmonary artery peak systolic pressure of 37 mmHg. Compared to the study from 05/05/2020, the gradient across the aortic valve seems to be less but the valve area calculation is suggestive of worsening stenosis .(The peak velocity was 2.95 m/s and the valve area was 1.1 cmcm2). Consider dobutamine echo to rule out pseudostenosis. Dr Troy Evans MD [facility] (Electronically Signed) Final Date: 16 June 2021 09:14 S
== END 2021-06-16 06:30 | disposition home or self-care (01) ==
LOC: RAD 06:30
PROVIDERS: PCP Family Medicine; Visit Provider Internal Medicine Cardiovascular Disease
DX: R07.9 Chest pain, unspecified (principal); Z95.1 Presence of aortocoronary bypass graft; I08.3 Combined rheumatic disorders of mitral, aortic and tricuspid valves; Z13.6 Encounter for screening for cardiovascular disorders; I35.0 Nonrheumatic aortic (valve) stenosis; R06.00 Dyspnea, unspecified; I77.819 Aortic ectasia, unspecified site
CPT/HCPCS: 76706; 93306

== ENCOUNTER 2021-06-16 06:31 | Outpatient (CLI) | payer MEDICARE, BC, SELFPAY ==
--- NOTE | 2021-06-16 | USCV_ITS ---
Surface, Eliza Age: 80 Gender: M : 1940 Exam Date: 06/16/2021 07:23 Ordering Phys: Troy Evans MD ([email or web address]) Technologist: Eugenia Hawkins [place] [facility] [place]: SCREENING HISTORY: Screening Diameter (cm) AP x Transverse x Length Velocity (cm/s) Waveform Prox Aorta: 2.16 x 2.96 x 2.68 53.40 Mid Aorta: 2.11 x 3.13 x 2.96 43.80 Distal Aorta: 2.59 x 3.23 x 2.90 59.70 Right Iliac Prox: 1.01 x 1.43 x 1.39 54.80 Left Iliac Prox: 0.97 x 1.20 x 1.14 90.20 Stent Prox Landing x x Aneurysmal Sac Max x x Lt Lat Sac Dim Rt Lat Sac Dim Stent Dist Landing x x Right Iliac Stent x x Left Iliac Stent x x Right Renal Art Left Renal Art FINDINGS: Mild to moderate diffuse plaques in the abdominal aorta. Mild diffuse ectasia of the mid and distal abdominal aorta Normal proximal common iliac artery dimensions. 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 Mild to moderate diffuse plaques in the abdominal aorta. Normal proximal common iliac artery dimensions. No evidence of any significant obstruction in the abdominal aorta or the proximal common iliac arteries Dr Troy Evans MD [facility] (Electronically Signed) Final Date: 17 June 2021 08:32 S
== END 2021-06-16 06:32 | disposition home or self-care (01) ==
LOC: RAD 06:32
PROVIDERS: PCP Family Medicine; Visit Provider Internal Medicine Cardiovascular Disease
DX: I35.0 Nonrheumatic aortic (valve) stenosis (principal); R06.00 Dyspnea, unspecified; Z13.6 Encounter for screening for cardiovascular disorders; I77.819 Aortic ectasia, unspecified site
CPT/HCPCS: 76706

== ENCOUNTER 2021-07-31 10:46 | Outpatient (CLI) | payer MEDICARE, BC, SELFPAY ==
--- NOTE | 2021-07-31 | USCV_ITS ---
Ablation Guidance Surface, Eliza Age: 80 Gender: M : 1940 Exam Date: 07/31/2021 12:15 Ordering Phys: Troy Evans MD ([email or web address]) Technologist: Jovanny Marshall Exam Location: [facility] [place] Indication: Aortic Valve Stenosis Rhythm: Sinus Patient History: Aortic stenosis, CAD, Systolic HF, thoracic aortic aneursym Cardiac Medications: carvedilol, amlodipine Medications in past 24 hours: No Contrast: Total Dose (mL): Stress Results Protocol: Pharmacologic Peak Dose (???g/kg/min): 20 Duration (min:sec): 15:30 Atropine:(mg) Target HR: 118 Double Product: 1660 Resting HR: 55 Resting BP: 159 / 95 Peak HR: 10 Peak BP: 166 / 101 Max Predicted HR: 139 7 % Max Predicted HR Stress Summary: BP Response: Normal Reason for Termination: Nathan Clifford at bedside. Obtained all needed measurements. Cardiac Symptoms: None ECG Analysis Resting EKG: Stress EKG: Arrhythmia: MEASUREMENTS (Male/Female) Normal Values 2D ECHO LVOT Diameter 2.0 cm LV Ejection Fraction MOD 2C 27.4 % LV Ejection Fraction 2C AL 24.7 % DOPPLER AV Peak Velocity 361.5 cm/s LVOT Peak Velocity 93.3 cm/s AV Area Cont Eq vti 0.9 cm squared AV Area Cont Eq pk 0.8 cm squared MV Peak Velocity 85.0 cm/s MV Area PHT 2.4 cm squared Mitral E to A Ratio 0.7 MV E' Velocity 28.5 cm/s Mitral E to MV E' Ratio 10.8 Mitral E to LV E' Lateral Ratio 8.3 Mitral E to LV E' Septal Ratio 15.4 FINDINGS The baseline LV ejection fraction was 40%. Mean gradient was 14.5 mmHg with a valve area of 0.89 cm2. The stroke-volume was 78ml. The dobutamine was infused over a period of 15 minutes. Started with a 2.5 mics per KG per minute. The dose was increased by 2.5 mics per KG per minute every 3 minutes to a maximum of 15 mics per KG per minute. Dobutamine infusion was stopped because of the heart rate reaching the target heart rate of 30 bpm, about the baseline rate. Patient also started developing frequent ventricular arrhythmias at this time. At the peak infusion rate, the aortic valve velocity was 3.7 m/s with a peak gradient of 25.9 mmHg. The valve area is calculated to be 0.86 cm2. The stroke-volume index remain fixed at 36.2 mL/m squared(78 ml) CONCLUSIONS The above features are consistent with normal flow low gradient severe aortic valve stenosis. Dr Troy Evans MD [facility] (Electronically Signed) Final Date: 01 Aug 2021 18:37 S
[2021-07-31 11:06] VITALS: BMI 26.4
--- NOTE | 2021-07-31 11:06 | ECG_ITS ---
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 Interpretive Statements PROCEDURE: At the baseline, the blood pressure was 146/81 with a heart rate of 51. The electrocardiogram showed sinus bradycardia with a rate of 56 bpm. Poor R wave progression. Possible old anterior wall CT. Features of LVH. Left anterior fascicular block. The dobutamine was infused over a period of 15 minutes and 30 seconds. The patient was started with a dobutamine infusion rate of 2.5 mics per KG per minute and increased by 2.5 mics every 3 minutes to a maximum 15 mics per KG per minute. The maximum heart rate obtained was 99 (72% of the maximum predicted heart rate). The blood pressure at that time was 165/82 mmHg. The patient did not have any chest pain .frequent ventricular arrhythmias are noted with a peak infusion rate .the EKG was uninterpretable because of the frequent arrhythmia. The physical examination remained unchanged. Frequent PVCs and episodes of nonsustained medical tachycardias were noted During the recovery phase, the patient did not have any specific symptoms. The blood pressure at the end of the recovery phase was 157/86 with a heart rate of 75 per minute. Arrhythmias gradually disappeared during the recovery phase CONCLUSION: 1. Dobutamine induced ventricular arrhythmia 2. Normal blood pressure and heart rate response to the dobutamine fusion 3. The EKG was uninterpretable because of the ventricular arrhythmia with a peak infusion. 4. Echocardiographic features were taken to evaluate the aortic valve velocity, gradient across aortic valve, valve area, LV ejection fraction and stroke-volume. Please see separate report. Electronically Signed On 08-04-2021 22:48:15 CDT by Troy Evans M.D. [id number]
[2021-07-31] MEDS: DOBUTamine drip 500 MG/250 ML PREMIX 6.8 MG IV (12:39)
[2021-07-31 13:15] VITALS: BP 167/93; PULSE 77
== END 2021-07-31 10:47 | disposition home or self-care (01) ==
LOC: CDL 10:50
PROVIDERS: PCP Family Medicine; Visit Provider Internal Medicine Cardiovascular Disease
DX: I35.0 Nonrheumatic aortic (valve) stenosis (principal); I50.20 Unspecified systolic (congestive) heart failure; I71.2 Thoracic aortic aneurysm, without rupture; I49.9 Cardiac arrhythmia, unspecified
CPT/HCPCS: 93017; 93350; J1250; J3490

== ENCOUNTER → 2021-08-16 09:57 | Outpatient (BNVA) | payer MEDICARE, BC, SELFPAY | PROVIDERS: PCP Family Medicine; Visit Provider Internal Medicine Cardiovascular Disease | DX: I35.0 Nonrheumatic aortic (valve) stenosis (principal); I25.118 Atherosclerotic heart disease of native coronary artery with other forms of angina pectoris; I71.2 Thoracic aortic aneurysm, without rupture; R53.83 Other fatigue; I13.0 Hypertensive heart and chronic kidney disease with heart failure and stage 1 through stage 4 chronic kidney disease, or unspecified chronic kidney disease; N18.2 Chronic kidney disease, stage 2 (mild); I50.22 Chronic systolic (congestive) heart failure; K21.9 Gastro-esophageal reflux disease without esophagitis; I49.9 Cardiac arrhythmia, unspecified; R53.1 Weakness; E78.5 Hyperlipidemia, unspecified; Z79.01 Long term (current) use of anticoagulants; R55 Syncope and collapse | CPT/HCPCS: 80053; 80061; 84443; 85025; 99214 ==

== ENCOUNTER → 2021-08-21 13:33 | Outpatient (BNVA) | payer MEDICARE, BC, SELFPAY | PROVIDERS: PCP Family Medicine; Visit Provider Internal Medicine Cardiovascular Disease | DX: R55 Syncope and collapse (principal); R00.1 Bradycardia, unspecified; I44.2 Atrioventricular block, complete | CPT/HCPCS: 93229 ==

== ENCOUNTER 2021-10-10 14:09 | Outpatient (CLI) | payer MEDICARE, BC, SELFPAY ==
--- NOTE | 2021-10-10 14:24 | CT_ITS ---
WS: [id number] CTA THORACIC TECHNIQUE: Contrast enhanced CTA of the thoracic aorta with coronal and sagittal reformatted images a nd maximum intensity projection (MIP) images. CLINICAL INFORMATION: AORTIC ANEURYSM COMPARISON: CTA May 30, 2018 DLP: 1235.[address] scans at [facility] use at least one of these dose optimization techniques: automated e xposure control; mA and/or kV adjustment per patient size (includes targeted exams where dose is matc hed to clinical indication); or iterative reconstruction. FINDINGS:Moderate atheromatous disease thoracic aorta. Aortic root graft. Coronary calcification. Dion rnotomy and CABG. Numerous enlarged mediastinal lymph nodes nonspecific but similar to previous likely reactive. Normal caliber descending thoracic aorta. Ulcerated atheromatous plaque in the aortic arch. Ascending thora cic aorta measures 3.7 cm in maximum dimension. Moderate atheromatous disease with inferior projectin g pseudoaneurysm. This is similar in appearance to 2019. Pseudoaneurysm measures 16 x 9 mm. Subsegmental atelectasis in the lung bases RIGHT greater than LEFT. Cholecystectomy. Small moderate e sophageal hiatal hernia. Adrenal glands are normal. Celiac and SMA are patent and the upper abdomen. Partially visualized bilateral renal cysts. Mild thoracic kyphosis. Mild thoracic curve. CT/CT angio chest [id number] IMPRESSION: 1. Ascending thoracic aorta measures 3.7 cm in maximum dimension. This is unch anged from previous. 2. Aortic root graft is new from previous. 3. Ulcerated atheromatous disease aortic arch with inferior projecting pseudoa neurysm measuring 16 x 9 mm described above. This is stable in appearance luis red to previous. 4. Small to moderate esophageal hiatal hernia. 5. Stable prominent mediastinal lymph nodes likely reactive. 6. No other significant interval changes.
[2021-10-10 15:05] LABS: Blood Urea Nitrogen 22 mg/dL (8-23)
[2021-10-10] MEDS: iodixanol 320 mg/mL 100mL Btl IV (15:20)
[2021-10-10 17:07] LABS: Basophils # 0.1 10^3/uL (0.0-0.1); Basophils % 0.9 %; Eosinophils # 0.6 10^3/uL (0.0-0.8); Hematocrit 43.8 % (42.0-52.0); Hemoglobin 15.8 g/dL (11.7-16.6); Lymphocytes # 1.2 10^3/uL (0.8-4.8); Lymphocytes % 17.6 %; Mean Corpuscular HGB Conc 36.1 g/dL (30.0-36.0); Mean Corpuscular Hemoglobin 33.1 pg (28.0-34.0); Mean Corpuscular Volume 91.6 fl (80-94); Mean Platelet Volume 10.9 fL (7.4-10.4); Monocytes # 0.9 10^3/uL (0.2-0.9); Monocytes % 13.5 %; Neutrophils # 3.83 10^3/uL (1.8-7.7); Neutrophils % 58.8 %; Nucleated Red Blood Cells % 0 %; Platelet Count 130 10^3/cmm (130-400); Red Blood Count 4.78 10^6/uL (4.1-5.3); Red Cell Distribution Width 11.7 % (12.1-15.1); White Blood Count 6.5 10^3/uL (4.0-10.0)
[2021-10-10 17:33] LABS: Anion Gap 15.1 (5-19); Blood Urea Nitrogen 24 mg/dL (8-23); Calcium 9.3 mg/dL (8.5-10.5); Carbon Dioxide 26 mmol/L (22-29); Chloride 101 mmol/L (98-107); Glucose 95 mg/dL (65-115); Osmolality Calculated 290 mOsm/kg (285-295); Potassium 4.1 mmol/L (3.5-5.1); Sodium 138 mmol/L (136-145)
== END 2021-10-10 14:10 | disposition home or self-care (01) ==
PROVIDERS: PCP Family Medicine; Visit Provider Internal Medicine Cardiovascular Disease
DX: R06.02 Shortness of breath (principal); Z79.01 Long term (current) use of anticoagulants; I71.9 Aortic aneurysm of unspecified site, without rupture; I70.0 Atherosclerosis of aorta; K44.9 Diaphragmatic hernia without obstruction or gangrene; R42 Dizziness and giddiness; I25.10 Atherosclerotic heart disease of native coronary artery without angina pectoris; Z95.3 Presence of xenogenic heart valve; G47.33 Obstructive sleep apnea (adult) (pediatric); E78.5 Hyperlipidemia, unspecified; I49.9 Cardiac arrhythmia, unspecified; I13.0 Hypertensive heart and chronic kidney disease with heart failure and stage 1 through stage 4 chronic kidney disease, or unspecified chronic kidney disease; N18.2 Chronic kidney disease, stage 2 (mild); I50.22 Chronic systolic (congestive) heart failure; R94.31 Abnormal electrocardiogram [ECG] [EKG]
CPT/HCPCS: 71275; 80048; 82565; 84520; 85025; 93005; 99214

== ENCOUNTER 2021-11-08 06:00 | Outpatient (RCR) | payer MEDICARE, BC, SELFPAY | END 2021-11-08 23:59 | disposition home or self-care (01) | LOC: SPT 06:00 | PROVIDERS: PCP Family Medicine; Visit Provider Internal Medicine Cardiovascular Disease | DX: R42 Dizziness and giddiness (principal) | CPT/HCPCS: 95992; 97162 ==

== ENCOUNTER 2021-11-09 06:00 | Outpatient (RCR) | payer MEDICARE, BC, SELFPAY | END 2021-12-08 23:59 | disposition home or self-care (01) | LOC: SPT 06:00 | PROVIDERS: PCP Family Medicine; Visit Provider Internal Medicine Cardiovascular Disease | DX: R42 Dizziness and giddiness (principal) | CPT/HCPCS: 95992 ==

== ENCOUNTER 2021-12-21 02:19 | Inpatient (IN) | payer MEDICARE, BC, SELFPAY ==
[2021-12-21] VITALS (17 sets, daily range): BP systolic 147–164; BP diastolic 80–100; PULSE 60–102; RESP 16–18; TEMP 36.4–36.7; O2SAT 94–98
--- NOTE | 2021-12-21 02:23 | ED_ITS ---
HPI - Neuro Symptoms/Deficit General: Chief Complaint: Neuro Symptoms/Deficit Stated Complaint: stroke Time Seen by Provider: 12/21/21 02:23 History of Present Illness: 81-year-old male wake-up stroke symptoms. Last known well 10 PM when he went to bed verified by . Woke up tried to go to the bathroom but cannot get out of bed. He did not notice the arm weakness right away upon waking and trying to get up.. EMS found patient to have strokelike symptoms. Left facial droop, dysarthria, left upper extremity weakness, left lower extremity weakness. Overall course has persisted. Intensity is severe. No other specific changes in health, exacerbating, or alleviating factors identified. Last Observed Normal: 22:00 Timing confirmed by: family member History of same: No Severity: severe Review of Systems General: Reports: 10 or more systems reviewed and unremarkable except in HPI and below PFSH ED PFSH: Medical History Aortic stenosis CAD (coronary artery disease) Chronic kidney disease Diverticulosis Dyslipidemia GERD (gastroesophageal reflux disease) Hiatal hernia History of Sindy-Kirk syndrome History of pulmonary embolism Insomnia Systolic congestive heart failure Thoracic aortic aneurysm Surgical History History of cataract surgery Bilateral History of cholecystectomy History of coronary artery bypass graft 1996 in 2010 -- 3 vessels total History of coronary artery stent placement Reports a total of 3 stents after her last CABG done in [facility] History of drainage of abscess Percutaneous, right lower quadrant suspected appendiceal abscess Family History Mother Diabetes Stroke Father Gallbladder disease Brother Chronic kidney disease (CKD) Diabetes Denies family history of CAD (coronary artery disease) Clotting disorder Dementia Suicide Anesthesia complication Bleeding disorder Lung disease Cancer Social History Smoking and tobacco status: never smoked Alcohol intake: never Caregiver/support person: Yes Household members: spouse NIH stroke score NIHSS: Level Of Consciousness - 1a: 0 Level Of Consciousness Questions - 1b: Both Correct Level Of Consciousness Commands - 1c: Both Correct Best Gaze - 2: Normal Visual Monson - 3: No Visual Loss Facial Palsy - 4: Partial Paralysis Motor Arm Right - 5: No Drift Motor Arm Left - 5: Effort Against [place] Motor Leg Right - 6: No Drift Motor Leg Left - 6: No Drift Limb Ataxia - 7: Absent Sensory - 8: Mild To Moderate Loss Best Language - 9: No Aphasia Dysarthia - 10: Mild/Moderate Dysarthia Extinction And Inattention - 11: 0 Score: Total Score: 6 Physical Exam Const: COMMON NORMALS: alert GENERAL APPEARANCE: cooperative and well developed HENMT: COMMON NORMALS: normocephalic and atraumatic HEAD & SCALP: normocephalic and atraumatic THROAT: posterior oropharynx normal Eye: COMMON NORMALS: conjunctivae normal CONJUNCTIVA: Yes conjunctivae normal SCLERA: sclerae normal Neck/C-Spine: COMMON NORMALS: supple GENERAL: Yes trachea midline Resp: COMMON NORMALS: normal respiratory effort EFFORT & INSPECTION: Yes able to speak in complete sentences Cardio: COMMON NORMALS: regular rate and regular rhythm RATE: regular rate RHYTHM: regular rhythm GI: COMMON NORMALS: Soft to palpation PALPATION: Yes Soft to palpation and No Tenderness to palpation present (GI) Extremity: GENERAL: Yes normal exam except as noted and No edema Neuro: SENSORIUM/ORIENTATION: Yes alert and No Orientation impaired OTHER: NIHSS 6 as above Psych: COMMON NORMALS: mental status grossly normal and Normal thought process present THOUGHT PROCESS: Normal thought process present Course Vital Signs: Vital signs: Vital Signs Temperature 98.0 F 12/25/21 14:06 Pulse Rate 59 L 12/25/21 14:06 Respiratory Rate 16 12/25/21 14:06 Blood Pressure 115/68 12/25/21 14:06 Pulse Oximetry 95 12/25/21 14:06 Oxygen Delivery Me thod 12/25/21 12:00 MDM - Neuro Symptoms/Deficit Medical Decision Making 81-year-old gentleman presenting with strokelike symptoms. Initially patient awoke with symptoms and then fell initially requesting Halytskyy assisted subsequently identified of stroke symptoms. NIHSS 6 however patient is outside tPA window given last known normal time and wake-up symptoms. No clear pathology identified on laboratory studies to explain symptoms. EKG reviewed showing sinus rhythm with first-degree AV block and interventricular conduction delay. Chest x-ray with no evidence of lobar consolidation or pneumothorax. CT head needed for acute intracranial hemorrhage which was obtained upon patient arrival. CTA reviewed without large vessel occlusion amenable to endovascular retrieval. Patient admitted for further stroke evaluation. Medical Records I reviewed the patient's medical records. Lab Data I reviewed the patient's lab results. : 12/21/21 02:29 12/21/21 02:29 Radiology Impressions Chest X-Ray 12/21/21 02:24 IMPRESSION: 1. Retrocardiac confluent opacities that may be secondary to atelectasis or in the appropriate clinical setting, pneumonia. 2. Status post TAVR. 3. Prior coronary artery revascularization. 4. Left pacemaker device and leads in appropriate position. Head CT 12/21/21 02:24 IMPRESSION: 1. No acute intracranial findings. 2. Prominent cerebral small-vessel disease 3. Age-related involutional changes of the brain. ASSESSMENT: ASPECTS ([place] Stroke Program Early CT Score) is 10. Head/Neck CTA 12/21/21 02:45 IMPRESSION: 1. Bilateral M2 segment moderate stenoses. 2. Moderate left M3 segment stenosis. 3. Ectasia of the left internal carotid artery cavernous segment. IMPRESSION: 1. 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 2. Atherosclerotic disease of the left extracranial internal carotid artery with no stenosis by NASCET criteria. 3. 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 4. Widely patent dominant left vertebral artery supplying the basilar artery. REFERENCES: NASCET CRITERIA. The degree of stenosis in the cervical segment of the internal carotid artery is based on NASCET criteria. Normal is no stenosis. Mild is less than 50% stenosis. Moderate is 50-69% stenosis. Severe is 70% to 99% stenosis. Total occlusion is no detectable patent lumen. ADDENDUM: 12/21/21 0450 THIS REPORT CONTAINS FINDINGS THAT MAY BE CRITICAL TO PATIENT CARE. The findings were verbally communicated via telephone conference with Jay Davis at 4:48 AM CDT on 12/21/2021. The findings were acknowledged and understood. Laboratory Results WBC 5.3 10^3/uL (4.0-10.0) 12/21/21 02:29 RBC 4.85 10^6/uL (4.1-5.3) 12/21/21 02:29 Hgb 16.1 g/dL (11.7-16.6) 12/21/21 02: Hct 44.8 % (42.0-52.0) 12/21/21 02: MCV 92.4 fl (80-94) 12/21/21 02:29 MCH 33.2 pg (28.0-34.0) 12/21/21 02: MCHC 35.9 g/dL (30.0-36.0) 12/21/21 02: RDW 12.3 % (12.1-15.1) 12/21/21 02:29 Plt Count 105 10^3/cmm (130-400) L 12/21/21 02: MPV 11.2 fL (7.4-10.4) H 12/21/21 02: Neut % (Auto) 60.6 % 12/21/21 02: Lymph % (Auto) 18.7 % 12/21/21 02: [place] % (Auto) 11.3 % 12/21/21 02: Eos % (Auto) 8.3 % 12/21/21 02:29 Baso % (Auto) 0.9 % 12/21/21 02: Neut # (Auto) 3.21 10^3/uL (1.8-7.7) 12/21/21 02: Lymph # (Auto) 1.0 10^3/uL (0.8-4.8) 12/21/21 02: [place] # (Auto) 0.6 10^3/uL (0.2-0.9) 12/21/21 02: Eos # (Auto) 0.4 10^3/uL (0.0-0.8) 12/21/21 02: Baso # (Auto) 0.1 10^3/uL (0.0-0.1) 12/21/21 02: Nucleated RBC % (auto) 0 % 12/21/21 02: Nucleated RBCs # 0.0 /100WBC 12/21/21 02: PT 14.40 SECONDS (12.1-14.9) 12/21/21 02: INR 1.09 (0.8-1.2) 12/21/21 02: APTT 32.8 SECONDS (23.9-36.7) 10/13/22 02:29 Sodium 140 mmol/L (136-145) 12/21/21 02:29 Potassium 3.9 mmol/L (3.5-5.1) 12/21/21 02:29 Chloride 106 mmol/L (98-107) 12/21/21 02:29 Carbon Dioxide 21 mmol/L (22-29) L 12/21/21 02:29 Anion Gap 16.9 (5-19) 12/21/21 02:29 BUN 25 mg/dL (8-23) H 12/21/21 02:29 Creatinine 1.6 mg/dL (0.7-1.2) H 12/21/21 02:29 GFR Calculation Not Reportable 12/21/21 02:29 Glucose 110 mg/dL (65-115) 12/21/21 02:29 POC Glucose 101 mg/dL (70-110) 12/21/21 02:28 Calculated Osmolality 295 mOsm/kg (285-295) 12/21/21 02:29 Calcium 9.3 mg/dL (8.5-10.5) 12/21/21 02:29 Total Bilirubin 0.4 mg/dL (0.15-1.2) 12/21/21 02:29 AST 19 U/L (0-40) 12/21/21 02:29 ALT 11 U/L (0-41) 12/21/21 02:29 Alkaline Phosphatase 87 U/L (40-130) 12/21/21 02:29 Troponin T Baseline 34 ng/L (0-15) H 12/21/21 02:29 Troponin T 120 Minute 32.90 ng/L (0-15) H 12/21/21 04:20 Delta Troponin T -1.10 ABS# (0-10) L 12/21/21 04:20 Total Protein 7.2 g/dL (6.6-8.7) 12/21/21 02:29 Albumin 4.2 g/dL (3.5-5.2) 12/21/21 02:29 Globulin 3.0 g/dL (1.3-4.6) 12/21/21 02:29 Ethyl Alcohol < 10 mg/dL (0-10) 12/21/21 02:29 Critical Care Time Critical Care Time: Critical Care Time: Yes Total Critical Care Time: 35 Attestation: Due to a high probability of clinically significant, possibly life threatening deterioration, the patient required my highest level of attention and preparedness to intervene emergently and I personally spent this critical care time directly and personally managing the patient. This critical care time inc luded obtaining a history; examining the patient; pulse oximetry; ordering and review of laboratory and imaging studies; arranging urgent treatment with development of a management plan; evaluation of patient's response to treatment; frequent reassessment; and, discussions with other providers as applicable. It was exclusive of separately billable procedures. Primary system involved is neuro Discharge Plan Discharge Patient Disposition: Admitted As Inpatient Admit Provider: Elio Maria Clinical Impression: Stroke Condition: Stable Discharge Diet: As Directed Coding Level of Care Code ED Estim[employer] for Gilbert Bettencourt
--- NOTE | 2021-12-21 02:24 | CTR_ITS ---
PROCEDURE INFORMATION: Exam: CT Head Without Contrast Exam date and time: 12/21/2021 2:18 AM Age: 81 years old Clinical indication: Stroke-like symptoms; Left facial droop; Lt upper extremity weakness; Additional info: Sudden onset of left facial droop and left upper extremity weakness post fall at home approx. 1 hour ago. TECHNIQUE: Imaging protocol: Computed tomography of the head without contrast. Radiation optimization: All CT scans at this facility use at least one of these dose optimization techniques: automated exposure control; mA and/or kV adjustment per patient size (includes targeted exams where dose is matched to clinical indication); or iterative reconstruction. Other technique: STROKE PROTOCOL was implemented. COMPARISON: No relevant prior studies available. RADIATION DOSE METRICS: Total DLP (mGy-cm): 1093.48 FINDINGS: Brain: There is no evidence of intracranial hemorrhage. There are prominent confluent periventricular hypodensities consistent with chronic microischemic changes of white matter. No mass effect or midline shift. 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 Cerebral ventricles: There is moderate volume loss and commensurate ventricular dilatation, consistent with the patient's age. Paranasal sinuses: There are no air-fluid levels. Mastoid air cells: The visualized mastoid air cells are well aerated. Bones/joints: No acute fracture. Soft tissues: Unremarkable. CT/CT head wo con* [id number] IMPRESSION: 1. No acute intracranial findings. 2. Prominent cerebral small-vessel disease 3. Age-related involutional changes of the brain. ASSESSMENT: ASPECTS ([place] Stroke Program Early CT Score) is 10.
--- NOTE | 2021-12-21 02:24 | XRR_ITS ---
PROCEDURE INFORMATION: Exam: XR Chest Exam date and time: 12/21/2021 2:30 AM Age: 81 years old Clinical indication: Other: Poss CVA; Prior surgery; Surgery type: Pacemaker. Valve replacement. Patient HX: Possible CVA. ; Additional info: AMS TECHNIQUE: Imaging protocol: Radiologic exam of the chest. Views: 1 view. COMPARISON: CT angio chest [id number] 10/10/2021 3:06 PM FINDINGS: Tubes, catheters and devices: A left pacemaker device is present and its leads are in appropriate position. EKG monitoring leads overlie the thoracic wall. Lungs: There are nonspecific retrocardiac confluent opacities. Normal pulmonary vascularity.There is incomplete lung expansion and crowding of the vascular markings. Pleural spaces: No pleural effusion or pneumothorax. Heart/Mediastinum: The heart is normal in size. There has been a median sternotomy for coronary revascularization. The sternotomy wires are properly aligned. There has been transcatheter aortic valve replacement (TAVR). Bones/joints: No acute fracture. XR/XR chest 1V portable [id number] IMPRESSION: 1. Retrocardiac confluent opacities that may be secondary to atelectasis or in the appropriate clinical setting, pneumonia. 2. Status post TAVR. 3. Prior coronary artery revascularization. 4. Left pacemaker device and leads in appropriate position.
[2021-12-21 02:36] LABS: Glucose Point of Care 101 mg/dL (70-110)
--- NOTE | 2021-12-21 02:37 | ECG_ITS ---
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 Measurements Intervals [place] Rate: 74 P: 44 ME: 215 QRS: -40 QRSD: 141 T: 140 QT: 418 QTc: 464 Interpretive Statements SINUS RHYTHM WITH FIRST DEGREE AV BLOCK INTRAVENTRICULAR CONDUCTION DELAY [130+ ms QRS DURATION] Compared to ECG 05/30/2018 12:53:11 No significant changes Electronically Signed On 12-21-2021 12:51:06 CDT by Tarsha Liz M.D. [id number]
--- NOTE | 2021-12-21 02:45 | CTR_ITS ---
PROCEDURE INFORMATION: Exam: CTA Head With Contrast, Arteriography Exam date and time: 12/21/2021 3:05 AM Age: 81 years old Clinical indication: Stroke-like symptoms; Left facial droop; Lt upper extremity weakness TECHNIQUE: Imaging protocol: Computed tomographic angiography of the head with contrast. Exam focused on the arteries. 3D rendering (Not supervised by radiologist): MIP and/or 3D reconstructed images were created by the technologist. Radiation optimization: All CT scans at this facility use at least one of these dose optimization techniques: automated exposure control; mA and/or kV adjustment per patient size (includes targeted exams where dose is matched to clinical indication); or iterative reconstruction. Contrast material: OMNI 350; Contrast volume: 100 ml; Contrast route: INTRAVENOUS (IV); COMPARISON: CT head wo con* [id number] 12/21/2021 2:18 AM RADIATION DOSE METRICS: Total DLP (mGy-cm): 491.02 FINDINGS: ANTERIOR CIRCULATION: Right internal carotid artery: Intracranial segment is patent with no significant stenosis. No aneurysm. Right middle cerebral artery: There is a moderate M2 segment stenosis (coronal series 13, image 37). Moderate irregular stenosis left M3 segment (coronal series 10, image 71). No aneurysm. Right anterior cerebral artery: No occlusion or significant stenosis. No aneurysm. Left internal carotid artery: Ectasia of the left cavernous segment measuring 7 mm in diameter. No aneurysm. Left middle cerebral artery: Moderate to severe stenosis M2 segment (coronal 13, image 36; coronal series 10, image 71). No aneurysm. Left anterior cerebral artery: No occlusion or significant stenosis. No aneurysm. POSTERIOR CIRCULATION: Right vertebral artery: A hypoplastic right vertebral artery that ends in PICA. No aneurysm. Left vertebral artery: A widely patent dominant left vertebral artery supplies the basilar artery. No aneurysm. Basilar artery: No occlusion or significant stenosis. No aneurysm. Right posterior cerebral artery: No occlusion or significant stenosis. No aneurysm. Left posterior cerebral artery: No occlusion or significant stenosis. No aneurysm. Brain: No definite mass, mass effect, or midline shift. Moderate to severe microischemic changes of white matter. Cerebral ventricles: Age-related involutional changes of the brain and ex vacuo ventricular dilatation. Bones/joints: Unremarkable. No acute fracture. Soft tissues: Unremarkable. PROCEDURE INFORMATION: Exam: CTA Neck With Contrast Exam date and time: 12/21/2021 3:05 AM Age: 81 years old Clinical indication: Stroke-like symptoms; Left facial droop; Lt upper extremity weakness TECHNIQUE: Imaging protocol: Computed tomographic angiography of the neck with contrast. 3D rendering (Not supervised by radiologist): MIP and/or 3D reconstructed images were created by the technologist. Radiation optimization: All CT scans at this facility use at least one of these dose optimization techniques: automated exposure control; mA and/or kV adjustment per patient size (includes targeted exams where dose is matched to clinical indication); or iterative reconstruction. Contrast material: OMNI 350; Contrast volume: 100 ml; Contrast route: INTRAVENOUS (IV); COMPARISON: CT angio chest [id number] 10/10/2021 3:06 PM RADIATION DOSE METRICS: Total DLP (mGy-cm): 491.02 FINDINGS: Right common carotid artery: No significant stenosis. No dissection or occlusion. Right internal carotid artery: Atheromatous plaques at the origin of the extracranial segment with moderate 57% stenosis. No dissection or occlusion. Right external carotid artery: No occlusion or significant stenosis of the origin. Left common carotid artery: No significant stenosis. No dissection or occlusion. Left internal carotid artery: Mild plaque at the origin of the extracranial segment with no significant stenosis. No dissection or occlusion. Left external carotid artery: No occlusion or significant stenosis of the origin. Right vertebral artery: This is a hypoplastic, non dominant vertebral with a moderate stenosis at the origin. The right vertebral artery ends in PICA and does not supply the basilar artery. No dissection or occlusion. Left vertebral artery: A widely patent dominant left vertebral artery supplies the basilar artery. No dissection or occlusion. Soft tissues: No significant soft tissue swelling. Bones/joints: No acute fracture. CT/CT angio headneck* [id number] IMPRESSION: 1. Bilateral M2 segment moderate stenoses. 2. Moderate left M3 segment stenosis. 3. Ectasia of the left internal carotid artery cavernous segment. IMPRESSION: 1. 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 2. Atherosclerotic disease of the left extracranial internal carotid artery with no stenosis by NASCET criteria. 3. 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 4. Widely patent dominant left vertebral artery supplying the basilar artery. REFERENCES: NASCET CRITERIA. The degree of stenosis in the cervical segment of the internal carotid artery is based on NASCET criteria. Normal is no stenosis. Mild is less than 50% stenosis. Moderate is 50-69% stenosis. Severe is 70% to 99% stenosis. Total occlusion is no detectable patent lumen.
[2021-12-21 02:47] LABS: Basophils # 0.1 10^3/uL (0.0-0.1); Basophils % 0.9 %; Eosinophils # 0.4 10^3/uL (0.0-0.8); Eosinophils % 8.3 %; Hematocrit 44.8 % (42.0-52.0); Hemoglobin 16.1 g/dL (11.7-16.6); Lymphocytes % 18.7 %; Mean Corpuscular HGB Conc 35.9 g/dL (30.0-36.0); Mean Corpuscular Hemoglobin 33.2 pg (28.0-34.0); Mean Corpuscular Volume 92.4 fl (80-94); Mean Platelet Volume 11.2 fL (7.4-10.4); Monocytes # 0.6 10^3/uL (0.2-0.9); Monocytes % 11.3 %; Neutrophils # 3.21 10^3/uL (1.8-7.7); Neutrophils % 60.6 %; Nucleated Red Blood Cells % 0 %; Platelet Count 105 10^3/cmm (130-400); Red Blood Count 4.85 10^6/uL (4.1-5.3); Red Cell Distribution Width 12.3 % (12.1-15.1); White Blood Count 5.3 10^3/uL (4.0-10.0)
[2021-12-21 02:56] LABS: INR 1.09 (0.8-1.2)
[2021-12-21 02:57] LABS: Partial Thromboplastin Time 32.8 SECONDS (23.9-36.7)
[2021-12-21 03:06] LABS: Alanine Aminotransferase 11 U/L (0-41); Albumin Level 4.2 g/dL (3.5-5.2); Alkaline Phosphatase 87 U/L (40-130); Anion Gap 16.9 (5-19); Aspartate Amino Transferase 19 U/L (0-40); Blood Urea Nitrogen 25 mg/dL (8-23); Calcium 9.3 mg/dL (8.5-10.5); Carbon Dioxide 21 mmol/L (22-29); Chloride 106 mmol/L (98-107); Glucose 110 mg/dL (65-115); Osmolality Calculated 295 mOsm/kg (285-295); Potassium 3.9 mmol/L (3.5-5.1); Sodium 140 mmol/L (136-145); Total Bilirubin 0.4 mg/dL (0.15-1.2); Total Protein 7.2 g/dL (6.6-8.7); Troponin(5th) Baseline 34 ng/L (0-15)
[2021-12-21 03:12] LABS: Alcohol Level < 10 mg/dL (0-10)
[2021-12-21] MEDS: iohexol 350 mg/mL 100 mL Btl IV (03:16)
--- NOTE | 2021-12-21 05:49 | ECG_ITS ---
[facility] Test Date: 2021-12-21 Pat Name: Eliza Grimm Department: Room: 250 Gender: Male Glass Sagger: : 1940 Requested By: Jay Davis Order Number: [id number] Laurie MD: Tarsha Liz M.D. Measurements Intervals [place] Rate: 71 P: 2 SC: 190 QRS: -44 QRSD: 133 T: 143 QT: 403 QTc: 439 Interpretive Statements SINUS RHYTHM WITH OCCASIONAL VENTRICULAR PREMATURE COMPLEXES INTRAVENTRICULAR CONDUCTION DELAY [130+ ms QRS DURATION] INFERIOR MYOCARDIAL INFARCTION , OF INDETERMINATE AGE Compared to ECG 12/21/2021 02:37:54 Ventricular premature complex(es) now present Myocardial infarct finding now present First degree AV block no longer present Electronically Signed On 12-21-2021 12:58:07 CDT by Tarsha Liz M.D. [id number]
--- NOTE | 2021-12-21 06:34 | PC.NURSE ---
Pt came to the floor, no needs at that time, bed is low and locked, call light on right side, left sided weakness, bladder feels full but having a hard time urinating.
[2021-12-21 06:35] LABS: Glucose Point of Care 110 mg/dL (70-110)
[2021-12-21 06:55] LABS: Amphetamines Screen Urine Negative (Negative); Barbiturates Screen Urine Negative (Negative); Benzodiazepines Screen Urine Negative (Negative); Cocaine Screen Urine Negative (Negative); Opiate Screen Urine Negative (Negative); PCP Screen Urine Negative (Negative); THC Screen Urine Negative (Negative)
[2021-12-21 07:08] LABS: Blood Urine 2+ (Negative); Glucose Urine UA Norm (Normal); Ketones Urine Negative (Negative); Nitrate Urine Negative (Negative); Protein Urine Neg (Negative); Specific Gravity, Urine 1.005 (1.005-1.030); Urine Appearance Clear (CLEAR); Urine Color Straw (Yellow); pH Urine 6.5 (5-7)
[2021-12-21 07:09] LABS: Add Urine Culture? No; Add Urine Microscopic? YES; Bacteria Urine TRACE /hpf; Bilirubin Urine Neg (Negative); Leukocyte Esterase Urine Negative (Negative); Mucus Urine TRACE /hpf; Squamous Epithelial Cell Urine 0-4 /hpf (0-5); Urobilinogen Urine Norm (Negative); WBC Urine 0-4 /hpf (0-5)
--- NOTE | 2021-12-21 08:24 | ECG_ITS ---
[facility] Test Date: 2021-12-21 Pat Name: Eliza Grimm Department: Room: 250 Gender: Male Clinical Outcomes Manager: : 1940 Requested By: Jay Davis Order Number: [id number] Laurie MD: Tarsha Liz M.D. Measurements Intervals [place] Rate: 83 P: 3 NC: 211 QRS: -36 QRSD: 128 T: 177 QT: 393 QTc: 464 Interpretive Statements SINUS RHYTHM WITH FIRST DEGREE AV BLOCK POSSIBLE RIGHT VENTRICULAR CONDUCTION DELAY [RSR (QR) IN V1/V2] INFERIOR MYOCARDIAL INFARCTION , OF INDETERMINATE AGE MODERATE T-WAVE ABNORMALITY, CONSIDER LATERAL ISCHEMIA Compared to ECG 12/21/2021 05:49:13 First degree AV block now present T-wave abnormality now present Possible ischemia now present Ventricular premature complex(es) no longer present Intraventricular conduction delay no longer present Myocardial infarct finding still present Electronically Signed On 12-21-2021 21:08:16 CDT by Tarsha Liz M.D. [id number]
--- NOTE | 2021-12-21 09:04 | PC.PHAR ---
Addendum entered by Ladi Obrien 12/21/21 09:07: pt states he is still taking kcl 20meq daily ext med history shows last filled 05/29/21 90d/s Original Note: pt and pts states the pt takes care of his own medications-pt states the dr garcia the plavix 75mg daily ext med history shows last filled 09/14/21 30d/s-
[2021-12-21 09:12] LABS: Troponin 5 6HR 38.21 ng/L (0-15)
[2021-12-21 09:13] LABS: Troponin 5 6HR Delta 4.21 ng/L (0-12)
--- NOTE | 2021-12-21 10:17 | PM.MISC ---
Miscellaneous Note Note: Who comes H&P is on the other, Which has been reviewed Patient has left-sided weakness Agreeable for nursing placement Left-sided dense weakness Slurred speech Facial droop noted Awake and alert Normal sinus rhythm Hypertensive Currently on room air Abdomen soft Not able to move his left arm and left leg Able to comprehend my questions Assessment plan Start dual antiplatelet therapy 40 mg of atorvastatin he does not have true allergy listed Continue Lovenox DVT prophylaxis Speech therapy patient therapy and PT today ancillary services manager therapy updated Allow permissive hypertension BPH: Tamsulosin Patient was complaining of difficulty voiding urine I have asked nurse to do a bladder scan, no signs of UTI for now
[2021-12-21] MEDS: sodium chloride 0.9% 1,000 ML 50 ML IV (12:30)
[2021-12-21] MEDS: tamsulosin 0.4 mg Capsule PO (12:31)
[2021-12-21] MEDS: enoxaparin 40 mg/0.4 mL Syringe SUBCUT (12:31)
[2021-12-21] MEDS: clopidogrel 75 mg Tablet PO (12:31)
[2021-12-21] MEDS: acetaminophen 325 mg Tablet 650 MG PO ×2 (15:48→22:18)
[2021-12-21] MEDS: gabapentin 300 mg Capsule PO (17:12)
[2021-12-21] MEDS: atorvastatin 40 mg Tablet PO (20:41)
[2021-12-21] MEDS: carvedilol 12.5 mg Tablet PO (20:41)
[2021-12-21] MEDS: temazepam 15 mg Capsule PO (21:18)
[2021-12-22] VITALS (11 sets, daily range): BP systolic 111–142; BP diastolic 65–85; PULSE 59–84; RESP 16–18; TEMP 36.3–36.7; O2SAT 95–97; BMI 25.1
[2021-12-22] MEDS: levothyroxine 50 mcg Tablet PO (05:25)
[2021-12-22] MEDS: gabapentin 300 mg Capsule PO ×2 (09:31→18:24)
[2021-12-22] MEDS: tamsulosin 0.4 mg Capsule PO (09:31)
[2021-12-22] MEDS: clopidogrel 75 mg Tablet PO (09:32)
[2021-12-22] MEDS: aspirin 81 mg EC Tablet PO (09:32)
[2021-12-22] MEDS: isosorbide mononitrate ER 30 mg Tablet PO (09:32)
[2021-12-22] MEDS: carvedilol 12.5 mg Tablet PO ×2 (09:32→21:02)
--- NOTE | 2021-12-22 10:08 | P.PN_ITS ---
Subjective Subjective: Patient is awaiting senior living placement No overnight events He does have some improvement of left arm and left leg today Patient was not able to sleep last night I will add Restoril Vitals/I&O/Wt Last Vital Signs Temp 97.8 F 12/22/21 07:56 Pulse 60 12/22/21 08:00 Resp 16 12/22/21 07:56 BP 133/84 12/22/21 07:56 Pulse Ox 95 12/22/21 08:00 O2 Del Method 12/22/21 08:00 12/21/21 12/22/21 12/22/21 22:59 06:59 14:59 Intake Total 1400 / 1400 Output Total 1780 / 2230 200 / 2430 Balance -380 / -830 -200 / -1030 Weight last 48 hrs Weight 81.647 kg Physical Exam Narrative: Left-sided weakness improving Patient is awake and alert Pleasant during evaluation Stating that he was not able to sleep last night Abdomen soft S1, S2 Looks euvolemic NIH 8-9 Urinary Catheter Management: Cutler Latex Free: Cath Placed During This Visit: yes Reason for Continuing Indwelling Catheter: Acute Urinary Retention or Obstruction Urinary Catheter Date of Insertion: 12/21/21 Urinary Catheter Time of Insertion: : Data : 12/21/21 02:29 12/21/21 02:29 A&P Assessment and plan (1) Stroke: (2) Dizziness and giddiness: (3) Status post transcatheter aortic valve replacement (TAVR) using bioprosthesis: (4) Fatigue: Plan Acute CVA Left-sided weakness [facility] placement Continue PT OT ST Currently on dysphagia diet Continue aspirin, Plavix atorvastatin Recent TAVR No malignant arrhythmia noted Carotid artery disease, will need outpatient evaluation Continue dual antiplatelet therapy For restless legs continue Neurontin Permissive hypertension He is getting low-dose Coreg for now along Imdur Continue tamsulosin and Synthroid Attestations Medical Necessity Statement*: Awaiting placement Time Spent in Patient Care: 40 Coding Level of Care Code Acute Heat Welder [employer]astics for Gilbert Fwrose Diagnoses Stroke I63.9 Dizziness and giddiness R42 Status post transcatheter aortic valve replacement (TAVR) using bioprosthesis Z95.3 Fatigue R53.83
--- NOTE | 2021-12-22 10:18 | PC.CHAP ---
Pastoral Care Encounter/Spiritual Assessment Type of Contact [] Declined polystyrene molding machine tender visit [] Patient/Family/Request visit [] Outpatient visit [] Follow-up visit [] Physician referral [] Code/Alert []x Routine visit [] Staff referral [] Actively dying [] Patient sleeping [] Family support [] [] Out of room [] Palliative care [] [x] Receiving care in room [] Pre-surgical visit [] Trauma [] Long length of stay [] ICU visit [] Other: Relational/Emotional Strength [] Patient feels connected with others/family/visitors/staff [] Distress [] Loneliness/isolation [] Abandonment Spirituality of Patient [] Person of Irene [] Attends Sikhism of their Irene [] Believes in Prayer [] Reads Bible or Anglican materials [] There are Spiritual issues to be addressed Price Economist Interventions [] Prayer [] Active listening [] Non-anxious presence [] Spiritual/emotional support [] Crisis/trauma care [] Spiritual counseling [] Bereavement support [] Provided bereavement packet [] Provided Bible/devotional materials [] Provided toy/stuffed animal, coloring book to patient or family member [] Provided Communion [] Anointing/[place] [] Salvation [] Completed spiritual assessment [] Other: Impact on Illness or Injury [] Angry [] Fearful [] Anxious [] Often cries [] Exhaustion [] Unable to work [] Unable to attend adventism [] Unable to walk/stand [] Unable to read [] Unable to drive [] Unable to eat/drink [] Unable to sleep [] Unable to be with family [] Patient intubated [] Other: Summary Time spent with patient
[2021-12-22] MEDS: enoxaparin 40 mg/0.4 mL Syringe SUBCUT (11:23)
[2021-12-22] MEDS: temazepam 15 mg Capsule 30 MG PO (21:02)
[2021-12-22] MEDS: acetaminophen 325 mg Tablet 650 MG PO (21:02)
[2021-12-22] MEDS: atorvastatin 40 mg Tablet PO (21:02)
[2021-12-23] VITALS (9 sets, daily range): BP systolic 130–161; BP diastolic 73–86; PULSE 61–82; RESP 16–18; TEMP 36.4–36.6; O2SAT 94–98
[2021-12-23] MEDS: levothyroxine 50 mcg Tablet PO (05:48)
[2021-12-23] MEDS: isosorbide mononitrate ER 30 mg Tablet PO (08:50)
[2021-12-23] MEDS: gabapentin 300 mg Capsule PO ×2 (08:50→18:22)
[2021-12-23] MEDS: tamsulosin 0.4 mg Capsule PO (08:50)
[2021-12-23] MEDS: clopidogrel 75 mg Tablet PO (08:50)
[2021-12-23] MEDS: aspirin 81 mg EC Tablet PO (08:50)
[2021-12-23] MEDS: carvedilol 12.5 mg Tablet PO ×2 (08:52→20:33)
--- NOTE | 2021-12-23 10:41 | PM.PN ---
Subjective Subjective: Patient work with PT and OT Motivated to go to [facility] Awake and alert Normal He wants his Cutler catheter to be removed only at the time of discharge Vitals/I&O/Wt Last Vital Signs Temp 97.8 F 12/23/21 08:00 Pulse 62 12/23/21 08:00 Resp 16 12/23/21 08:00 BP 145/78 12/23/21 08:00 Pulse Ox 98 12/23/21 08:00 O2 Del Method 12/23/21 08:00 12/22/21 12/23/21 12/23/21 22:59 06:59 14:59 Intake Total 360 / 1080 240 / 240 Output Total 100 / 100 400 / 500 Balance 260 / 980 -400 / 580 240 / 240 Weight last 48 hrs Weight 86.137 kg Weight 77.111 kg Weight 81.647 kg Physical Exam Narrative: Awake and alert Left-sided weakness improving S1, S2 Hemodynamically stable Variable S1-S2, consistent with A. fib Abdomen soft Euvolemic In good spirits Currently doing well on room air Urinary Catheter Management: Cutler Latex Free: Cath Placed During This Visit: yes Reason for Continuing Indwelling Catheter: Other Urinary Catheter Date of Insertion: 12/21/21 Urinary Catheter Time of Insertion: : Data : 12/21/21 02:29 12/21/21 02:29 A&P Assessment and plan (1) Stroke: (2) Dizziness and giddiness: (3) Status post transcatheter aortic valve replacement (TAVR) using bioprosthesis: (4) Fatigue: Plan Acute CVA History of A. fib Left-sided weakness improving correction placement Continue PT OT ST Currently on dysphagia diet Awaiting placement Will remove Cutler catheter before discharge Attestations Medical Necessity Statement*: Awaiting placement Time Spent in Patient Care: 30 Coding Level of Care Code Acute Oil Prospecting Observer for [place] Fwd Diagnoses Stroke I63.9 Dizziness and giddiness R42 Status post transcatheter aortic valve replacement (TAVR) using bioprosthesis Z95.3 Fatigue R53.83
[2021-12-23] MEDS: enoxaparin 40 mg/0.4 mL Syringe SUBCUT (13:29)
[2021-12-23] MEDS: atorvastatin 40 mg Tablet PO (20:33)
[2021-12-23] MEDS: temazepam 15 mg Capsule 30 MG PO (20:33)
[2021-12-23] MEDS: acetaminophen 325 mg Tablet 650 MG PO (21:17)
[2021-12-24] VITALS (8 sets, daily range): BP systolic 124–138; BP diastolic 72–80; PULSE 58–76; RESP 16–17; TEMP 36.6–36.8; O2SAT 96–99
[2021-12-24] MEDS: levothyroxine 50 mcg Tablet PO (06:19)
[2021-12-24] MEDS: carvedilol 12.5 mg Tablet PO ×2 (08:40→21:07)
[2021-12-24] MEDS: aspirin 81 mg EC Tablet PO (08:40)
[2021-12-24] MEDS: tamsulosin 0.4 mg Capsule PO (08:40)
[2021-12-24] MEDS: gabapentin 300 mg Capsule PO ×2 (08:40→17:13)
[2021-12-24] MEDS: isosorbide mononitrate ER 30 mg Tablet PO (08:40)
[2021-12-24] MEDS: clopidogrel 75 mg Tablet PO (08:40)
--- NOTE | 2021-12-24 09:46 | P.PN_ITS ---
Subjective Subjective: Patient walked 120 feet today PT Or no overnight events Patient wants to keep the Cutler catheter He does not want to take the Cutler catheter out until the day of discharge Vitals/I&O/Wt Last Vital Signs Temp 98.3 F 12/24/21 07:20 Pulse 58 L 12/24/21 07:20 Resp 16 12/24/21 07:20 BP 129/79 12/24/21 07:20 Pulse Ox 98 12/24/21 07:20 O2 Del Method 12/24/21 07:20 12/23/21 12/24/21 12/24/21 22:59 06:59 14:59 Intake Total 600 / 1080 150 / 1230 240 / 240 Output Total 1750 / 1750 Balance 600 / 1080 -1600 / -520 240 / 240 Weight last 48 hrs Weight 86.137 kg Weight 77.111 kg Physical Exam Narrative: Awake alert Left-sided weakness improving Dysphagia improving Left-sided facial weakness improving Awake and alert No new focal deficit S1, S2 variable Abdomen soft Euvolemic Cutler catheter in place Urinary Catheter Management: Cutler Latex Free: Cath Placed During This Visit: yes Reason for Continuing Indwelling Catheter: Acute Urinary Retention or Obstruction Urinary Catheter Date of Insertion: 12/21/21 Urinary Catheter Time of Insertion: : Data : 12/21/21 02:29 12/21/21 02:29 A&P Assessment and plan (1) Stroke: (2) Dizziness and giddiness: (3) Status post transcatheter aortic valve replacement (TAVR) using bioprosthesis: (4) Fatigue: Plan Patient is awaiting placement Keep Cutler until the day of discharge Continue Pradaxa A. fib without RVR Recent TAVR No arrhythmia Attestations Medical Necessity Statement*: Discharge tomorrow most likely Time Spent in Patient Care: 10 Coding Level of Care Code Acute Aged Or Disabled Carer for g Fwd Diagnoses Stroke I63.9 Dizziness and giddiness R42 Status post transcatheter aortic valve replacement (TAVR) using bioprosthesis Z95.3 Fatigue R53.83
--- NOTE | 2021-12-24 10:04 | PC.SOCIAL ---
Pg 2 IMM Explained to pt Pg 2 IMM. No questions voiced. Provided pt a copy. Initialed, dated,& timed a copy & placed in chart.
[2021-12-24] MEDS: enoxaparin 40 mg/0.4 mL Syringe SUBCUT (11:49)
[2021-12-24] MEDS: atorvastatin 40 mg Tablet PO (21:07)
[2021-12-24] MEDS: temazepam 15 mg Capsule 30 MG PO (21:07)
--- NOTE | 2021-12-24 23:13 | PC.NURSE ---
Pt woke up from sleep and requested tylenol, states his head was hurting.
[2021-12-24] MEDS: acetaminophen 325 mg Tablet 650 MG PO (23:14)
[2021-12-25] VITALS (7 sets, daily range): BP systolic 115–152; BP diastolic 65–80; PULSE 59–67; RESP 15–17; TEMP 36.6–36.8; O2SAT 93–97
[2021-12-25] MEDS: levothyroxine 50 mcg Tablet PO (05:31)
--- NOTE | 2021-12-25 07:52 | P.DS_ITS ---
Discharge Providers Date of Admission: 12/21/21 05:51 Date of Discharge: December 25, 2021 Attending Provider at Admission: Elio Maria MD Attending Provider at Discharge: Adam Irizarry MD Primary Care Provider: Aicha Moran MD Diagnoses at Discharge Discharge Diagnosis (1) Stroke: Status: Acute (2) Dizziness and giddiness: Status: Acute (3) Status post transcatheter aortic valve replacement (TAVR) using bioprosthesis: Status: Acute (4) Fatigue: Status: Acute Reason for Visit Reason for Visit: stroke Hospital Course Hospital Course 81-year-old male who is status recent post pacemaker placement, TAVR, chronic kidney disease stage II, systolic CHF, hypothyroidism, presented to hospital after experiencing acute left-sided weakness left-sided facial droop and dysarthria, he was diagnosed with CVA he recently had TAVR he has history of reduced action fraction heart failure, coronary disease hypothyroidism, CTA head and neck did show extracranial carotid disease about 50% bilateral M2 segment moderate stenosis moderate left M3 segment stenosis ectasia of left internal carotid artery cavernous segment EKG showed sinus rhythm with first-degree AV block Is rhythm remained sinus he remained hemodynamic stable He is going to a halfway. He was retaining urine and required Cutler catheter throughout hospitalization, no signs of UTI He was continued on dual antiplatelet therapy, permissive hypertension was allowed, speech therapy recommended modified diet, he is on level 6 dysphagia diet. Do believe his CVA is related to atherosclerotic etiology, there was no embolism or malignant arrhythmia identified. We will give him 3 weeks of dual antiplatelet therapy and then he will continue aspirin along with atorvastatin. He recently also finished Holter monitoring. Which showed third-degree AV block. His TAVR was done and September at [facility]. He had a permanent pacemaker implantation prior to that. Physical Exam Narrative: Left-sided weakness improving Dysphagia improving as well Awake and alert Fatigue lethargic Cutler catheter will be removed before discharge Euvolemic S1, S2 Abdomen soft Doing well on room air Working with PT on daily basis Urinary Catheter Management: Cutler Latex Free: Cath Placed During This Visit: yes Reason for Continuing Indwelling Catheter: Not indwelling catheter Urinary Catheter Date of Insertion: 12/21/21 Urinary Catheter Time of Insertion: : Discharge Data Studies Completed and Pending Completed Studies During Hospitalization Category Date Time Status CT head wo con* [id number] Stat Cat Scan 12/21/21 02:24 Completed CTA head neck [CT angio headneck* [id number]] Stat Cat Scan 12/21/21 02:45 Completed XR chest 1V portable [id number] Stat Exams 12/21/21 02:24 Completed Radiology Impressions Chest X-Ray 12/21/21 02:24 IMPRESSION: 1. Retrocardiac confluent opacities that may be secondary to atelectasis or in the appropriate clinical setting, pneumonia. 2. Status post TAVR. 3. Prior coronary artery revascularization. 4. Left pacemaker device and leads in appropriate position. Head CT 12/21/21 02:24 IMPRESSION: 1. No acute intracranial findings. 2. Prominent cerebral small-vessel disease 3. Age-related involutional changes of the brain. ASSESSMENT: ASPECTS ([place] Stroke Program Early CT Score) is 10. Head/Neck CTA 12/21/21 02:45 IMPRESSION: 1. Bilateral M2 segment moderate stenoses. 2. Moderate left M3 segment stenosis. 3. Ectasia of the left internal carotid artery cavernous segment. IMPRESSION: 1. 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 2. Atherosclerotic disease of the left extracranial internal carotid artery with no stenosis by NASCET criteria. 3. 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 4. Widely patent dominant left vertebral artery supplying the basilar artery. REFERENCES: NASCET CRITERIA. The degree of stenosis in the cervical segment of the internal carotid artery is based on NASCET criteria. Normal is no stenosis. Mild is less than 50% stenosis. Moderate is 50-69% stenosis. Severe is 70% to 99% stenosis. Total occlusion is no detectable patent lumen. ADDENDUM: 12/21/21 0450 THIS REPORT CONTAINS FINDINGS THAT MAY BE CRITICAL TO PATIENT CARE. The findings were verbally communicated via telephone conference with Jay Davis at 4:48 AM CDT on 12/21/2021. The findings were acknowledged and understood. Laboratory Results WBC 5.3 10^3/uL (4.0-10.0) 12/21/21 02:29 RBC 4.85 10^6/uL (4.1-5.3) 12/21/21 02:29 Hgb 16.1 g/dL (11.7-16.6) 12/21/21 02: Hct 44.8 % (42.0-52.0) 12/21/21 02: MCV 92.4 fl (80-94) 12/21/21 02: MCH 33.2 pg (28.0-34.0) 12/21/21 02: MCHC 35.9 g/dL (30.0-36.0) 12/21/21 02: RDW 12.3 % (12.1-15.1) 12/21/21 02: Plt Count 105 10^3/cmm (130-400) L 12/21/21 02: MPV 11.2 fL (7.4-10.4) H 12/21/21 02: Neut % (Auto) 60.6 % 12/21/21 02: Lymph % (Auto) 18.7 % 12/21/21 02: [place] % (Auto) 11.3 % 12/21/21 02: Eos % (Auto) 8.3 % 12/21/21 02: Baso % (Auto) 0.9 % 12/21/21 02: Neut # (Auto) 3.21 10^3/uL (1.8-7.7) 12/21/21 02: Lymph # (Auto) 1.0 10^3/uL (0.8-4.8) 12/21/21 02: [place] # (Auto) 0.6 10^3/uL (0.2-0.9) 12/21/21 02: Eos # (Auto) 0.4 10^3/uL (0.0-0.8) 12/21/21 02: Baso # (Auto) 0.1 10^3/uL (0.0-0.1) 12/21/21 02: Nucleated RBC % (auto) 0 % 12/21/21: Nucleated RBCs # 0.0 /100WBC 12/21/21 02: PT 14.40 SECONDS (12.1-14.9) 12/21/21 02: INR 1.09 (0.8-1.2) 12/21/21 02: APTT 32.8 SECONDS (23.9-36.7) 12/21/21 02:29 Sodium 140 mmol/L (136-145) 12/21/21 02:29 Potassium 3.9 mmol/L (3.5-5.1) 12/21/21 02:29 Chloride 106 mmol/L (98-107) 12/21/21 02:29 Carbon Dioxide 21 mmol/L (22-29) L 12/21/21 02:29 Anion Gap 16.9 (5-19) 12/21/21 02:29 BUN 25 mg/dL (8-23) H 12/21/21 02:29 Creatinine 1.6 mg/dL (0.7-1.2) H 12/21/21 02:29 GFR Calculation Not Reportable 12/21/21 02:29 Glucose 110 mg/dL (65-115) 12/21/21 02:29 POC Glucose 110 mg/dL (70-110) 12/21/21 06:29 Calculated Osmolality 295 mOsm/kg (285-295) 12/21/21 02:29 Calcium 9.3 mg/dL (8.5-10.5) 12/21/21 02:29 Total Bilirubin 0.4 mg/dL (0.15-1.2) 12/21/21 02:29 AST 19 U/L (0-40) 12/21/21 02:29 ALT 11 U/L (0-41) 12/21/21 02:29 Alkaline Phosphatase 87 U/L (40-130) 12/21/21 02:29 Troponin T Baseline 34 ng/L (0-15) H 12/21/21 02:29 Troponin T 120 Minute 32.90 ng/L (0-15) H 12/21/21 04:20 Delta Troponin T -1.10 ABS# (0-10) L 12/21/21 04:20 Troponin T Hi Sens 6Hr 38.21 ng/L (0-15) H 12/21/21 08:35 Troponin T Hi Sens 6Hr Delta 4.21 ng/L (0-12) 12/21/21 08:35 Total Protein 7.2 g/dL (6.6-8.7) 12/21/21 02:29 Albumin 4.2 g/dL (3.5-5.2) 12/21/21 02:29 Globulin 3.0 g/dL (1.3-4.6) 12/21/21 02:29 Urine Color Straw (Yellow) 12/21/21 06:30 Urine Appearance Clear (CLEAR) 12/21/21 06:30 Urine pH 6.5 (5-7) 12/21/21 06:30 Ur Specific [place] 1.005 (1.005-1.030) 12/21/21 06:30 Urine Protein Neg (Negative) 12/21/21 06:30 Urine Glucose (UA) Norm (Normal) 12/21/21 06:30 Urine Ketones Negative (Negative) 12/21/21 06:30 Urine Blood 2+ (Negative) H 12/21/21 06:30 Urine Nitrate Negative (Negative) 12/21/21 06:30 Urine Bilirubin Neg (Negative) 12/21/21 06:30 Urine Urobilinogen Norm mg/dL (Negative) 12/21/21 06:30 Ur Leukocyte Esterase Negative (Negative) 12/21/21 06:30 Urine RBC 5-10 /hpf (0-2) H 12/21/21 06:30 Urine WBC 0-4 /hpf (0-5) H 12/21/21 06:30 Ur Squamous Epith Cells 0-4 /hpf (0-5) H 12/21/21 06:30 Amorphous Sediment Not Reportable 12/21/21 06:30 Urine Bacteria Trace /hpf (NONE) 12/21/21 06:30 Urine Mucus Trace /hpf 12/21/21 06:30 Urine Opiates Screen Negative ng/mL (Negative) 12/21/21 06:30 Ur Barbiturates Screen Negative ng/mL (Negative) 12/21/21 06:30 Ur Phencyclidine Scrn Negative ng/mL (Negative) 12/21/21 06:30 Ur Amphetamines Screen Negative ng/mL (Negative) 12/21/21 06:30 U Benzodiazepines Scrn Negative ng/mL (Negative) 12/21/21 06:30 Urine Cocaine Screen Negative ng/mL (Negative) 12/21/21 06:30 U Marijuana (THC) Screen Negative ng/mL (Negative) 12/21/21 06:30 Ethyl Alcohol < 10 mg/dL (0-10) 12/21/21 02:29 Vitals Last Vital Signs Temp 98.2 F 12/25/21 04:00 Pulse 60 10/17/22 05:54 Resp 15 12/25/21 04:00 BP 116/65 12/25/21 04:00 Pulse Ox 93 12/25/21 04:00 O2 Del Method 12/24/21 15:52 Discharge Plan Discharge Patient Disposition: Xfer SNF Condition: Stable Prescriptions: New atorvastatin 40 mg Tablet 40 mg PO BEDTIME Qty: 30 3RF clopidogrel 75 mg Tablet 75 mg PO DAILY Qty: 15 0RF Continued potassium chloride 20 mEq tablet extended release 20 meq PO DAILY Qty: 90 3RF docusate sodium 100 mg capsule 100 mg PO BID amlodipine 5 mg tablet 5 mg PO BID Qty: 180 3RF tamsulosin 0.4 mg capsule 0.4 mg PO DAILY 90 Days Qty: 90 3RF isosorbide mononitrate 30 mg tablet extended release 24 hr 30 mg PO DAILY Qty: 90 3RF carvedilol 12.5 mg tablet 12.5 mg PO BID Qty: 180 3RF Rx Instructions: Dose increased Men's One Daily Tablet 1 tab PO DAILY PRN (Reason: unknown) ondansetron 4 mg tablet,disintegrating 4 mg PO TID PRN (Reason: Nausea And Vomiting) Synthroid 50 mcg tablet 50 mcg PO QAM furosemide 20 mg tablet 20 mg PO QAM aspirin 81 mg Tablet,Chewable 81 mg PO QAM Qty: 90 3RF Discontinued pantoprazole 40 mg tablet,delayed release (DR/EC) 40 mg PO DAILY Discharge Orders: Discharge Order (Routine); Ordered 12/25/21 Ordered By: Adam Irizarry Referrals: [facility] [Outside] Caroline Lux MD [Physician] - 12/27/21 2:15 pm Stan Gates MD [Physician] - 01/16/22 1:45 pm (carotid disease) Discharge Diet: As Directed Patient Instructions: Opioid Safety Patient's Health Concerns: Patient will need dysphagia level 6 diet which is soft and bite-size diet, liquid consistency is thin Discharge Attestations Time Spent in Discharge Care*: less than 30 min Quality Metrics Clinical Quality Measures [ No reported AMI, CVA or VTE this stay] Coding Level of Care Code Acute Chg FW DC note Diagnoses Stroke I63.9 Dizziness and giddiness R42 Status post transcatheter aortic valve replacement (TAVR) using bioprosthesis Z95.3 Fatigue R53.83
[2021-12-25] MEDS: tamsulosin 0.4 mg Capsule PO (08:39)
[2021-12-25] MEDS: carvedilol 12.5 mg Tablet PO (08:40)
[2021-12-25] MEDS: isosorbide mononitrate ER 30 mg Tablet PO (08:40)
[2021-12-25] MEDS: clopidogrel 75 mg Tablet PO (08:40)
[2021-12-25] MEDS: aspirin 81 mg EC Tablet PO (08:40)
[2021-12-25] MEDS: gabapentin 300 mg Capsule PO (08:40)
[2021-12-25 09:18] LABS: SARS Covid-2 Antigen negative (Negative)
[2021-12-25] MEDS: enoxaparin 40 mg/0.4 mL Syringe SUBCUT (11:19)
--- NOTE | 2021-12-25 14:09 | PC.NURSE ---
Called report to Amanda Farnsworth LPN at [facility]. Patient cleaned dry brief placed and helped in to wheelchair for [facility] transportation
== END 2021-12-25 14:11 | disposition skilled nursing facility (03) | DRG 65 ==
LOC: ER 04:48 → MEDSURG 05:04
PROVIDERS: Admitting Provider Internal Medicine; Emergency Provider Emergency Medicine; PCP Family Medicine; Visit Provider Internal Medicine
DX: I63.9 Cerebral infarction, unspecified (principal); G81.94 Hemiplegia, unspecified affecting left nondominant side; I50.22 Chronic systolic (congestive) heart failure; R29.810 Facial weakness; R47.1 Dysarthria and anarthria; R29.706 NIHSS score 6; Z95.0 Presence of cardiac pacemaker; Z95.3 Presence of xenogenic heart valve; G25.81 Restless legs syndrome; N18.2 Chronic kidney disease, stage 2 (mild); E03.9 Hypothyroidism, unspecified; Z79.82 Long term (current) use of aspirin; I25.10 Atherosclerotic heart disease of native coronary artery without angina pectoris; Z95.1 Presence of aortocoronary bypass graft; Z95.5 Presence of coronary angioplasty implant and graft; E78.5 Hyperlipidemia, unspecified; Z86.711 Personal history of pulmonary embolism; K21.9 Gastro-esophageal reflux disease without esophagitis
CPT/HCPCS: 36415; 36416; 51702; 51798; 70450; 70496; 70498; 71045; 80048; 80053; 80306; 80307; 81001; 82962; 83735; 84484; 85025; 85610; 85730; 87426; 92507; 92523; 92526; 92610; 93005; 93306; 96372; 97110; 97116; 97161; 97166; 97530; 99285; J1650; J7030; Q9967

== ENCOUNTER 2021-12-21 02:21 | Emergency (ER) | payer MEDICARE, BC, SELFPAY ==
--- NOTE | 2021-12-21 04:58 | USCV_ITS ---
Eliza Grimm Age: 81 Gender: M : 1940 Exam Date: 12/21/2021 09:01 Ordering Phys: Elio Maria MD Technologist: Jovanny Marshall Exam Location: [facility] – [place] Indication: chest pain BP: 132 / 74 HR: 85 Rhythm: Sinus Technical Quality: Adequate MEASUREMENTS (Male / Female) Normal Values 2D ECHO LV Diastolic Diameter PLAX 4.4 cm 4.2 - 5.9 / 3.9 - 5.3 cm IVS Diastolic Thickness 1.1 cm 0.6 - 1.0 / 0.6 - 0.9 cm LVPW Diastolic Thickness 1.2 cm 0.6 - 1.0 / 0.6 - 0.9 cm LV Ejection Fraction MOD 2C 51.5 % LV Ejection Fraction 2C AL 52.4 % LA Diameter 6.3 cm M-MODE Aortic Annulus Diameter 3.6 cm LA Ao Ratio MM 1.7 MV E Point Septal Separation 3.0 cm DOPPLER AV Peak Velocity 199.0 cm/s LVOT Peak Velocity 73.0 cm/s MV Area PHT 5.1 cm squared Mitral E to A Ratio 2.2 MV E' Velocity 51.0 cm/s Mitral E to MV E' Ratio 19.9 Mitral E to LV E' Lateral Ratio 22.2 Mitral E to LV E' Septal Ratio 18.1 TR Peak Velocity 180.0 cm/s TR Peak Gradient 13.0 mmHg TV Peak E Velocity 72.0 cm/s Right Atrial Pressure 3.0 mmHg Pulmonary Artery Systolic Pressu 16.0 mmHg FINDINGS Left Ventricle Normal LV size with diminished ejection fraction of 45 to 50%. Diffuse hypokinesia of the left ventricle.abnormal septal motion consistent with conduction abnormality. Right Ventricle The right ventricle is normal in size and function. Right Atrium The right atrium is normal in size. Left Atrium Mildly increased left atrial size. Mitral Valve Thickened mitral valve. Moderate mitral annular calcification. Mild mitral valve regurgitation. Aortic Valve Thickened aortic valve. Tricuspid Valve No gross abnormalities noted Pulmonic Valve Pulmonic valve not well visualized. Pericardium Normal pericardium without effusion. Aorta Normal ascending aorta dimension. IVC Inferior vena cava not visualized. CONCLUSIONS Normal LV size with diminished ejection fraction of 45 to 50%. (Visual) Diffuse hypokinesia of the left ventricle.abnormal septal motion consistent with conduction abnormality. Thickened mitral valve. Moderate mitral annular calcification. Mild mitral valve regurgitation. Thickened aortic valve. There is no pericardial effusion. There are no intracardiac masses. Compared to the study from 06/16/2021, there may not be a significant change Dr Troy Evans MD FAC (Electronically Signed) Final Date: 21 December 2021 20:47 S
--- NOTE | 2021-12-21 04:58 | P.HP_ITS ---
Providers/Chief Complaint Primary Care Provider: Aicha Moran MD Chief Complaint: Possible Stroke History of Present Illness Eliza Grimm is a 81 year old male with past medical history of coronary artery disease, hypothyroidism, s/p TAVR , heart failure with reduced ejection fraction , CKD came in with chief complaint of acute onset of Left-sided weakness, left facial droop and dysarthria, last known well was around 10 PM. Patient currently denies any chest pain, palpitation, shortness of breath. Upon arrival in the ER he was worked up for acute stroke. Pertinent imaging studies: CT head without contrast: No acute intracranial pathology CTA head and neck: Bilateral M2 segment moderate stenoses. Moderate left M3 segment stenosis. Ectasia of the left internal carotid artery cavernous segment. EKG: Sinus rhythm with first-degree AV block, His other labs and vitals have been reviewed. Review of Systems General: Reports: 10 or more systems reviewed and unremarkable except in HPI and below Const: Denies: fever(s), chills, body aches, change in appetite or diaphoresis Card: Denies: palpitations, edema, swelling of feet/ankles, dyspnea on exertion, orthopnea or leg pain with exertion Resp: Denies: dyspnea, productive cough, wheezing or pain on inspiration GI: Denies: abdominal pain, nausea, vomiting, diarrhea or constipation : Denies: flank pain or difficulty urinating Musc: Denies: back pain, extremity pain or extremity swelling Neuro: Denies: headache(s) or confusion Medications/Allergies Home Medications Medication Instructions Recorded Confirmed Last Taken Type aspirin 81 mg chewable tablet 81 mg PO DAILY 05/25/19 10/13/21 05/24/19 History potassium chloride 20 mEq 20 meq PO DAILY #90 tabs 05/29/21 10/13/21 Unknown Rx tablet,extended release tamsulosin 0.4 mg capsule 0.4 mg PO DAILY 90 days #90 caps 06/15/21 10/13/21 Unknown Rx isosorbide mononitrate 30 mg 30 mg PO DAILY #90 tabs 08/04/21 10/13/21 Unknown Rx tablet,extended release 24 hr levothyroxine 50 mcg tablet 50 mcg PO DAILY #90 tabs 08/09/21 10/13/21 Unknown Rx (Synthroid) magnesium L-lactate 84 mg 84 mg PO BID #180 tabs 08/22/21 10/13/21 Unknown Rx tablet,extended release (Magtab) clopidogrel 75 mg tablet 75 mg PO DAILY 10/10/21 10/13/21 Unknown History docusate sodium 100 mg capsule 100 mg PO DAILY 10/10/21 10/13/21 Unknown History pantoprazole 40 mg tablet,delayed 40 mg PO DAILY 10/10/21 10/13/21 Unknown History release amoxicillin 875 mg tablet 875 mg PO BID 7 days #14 tabs 10/13/21 10/13/21 Unknown Rx fluticasone propionate 50 1 spray intranasal DAILY #16 grams 10/13/21 10/13/21 Unknown Rx mcg/actuation nasal spray,suspension (Flonase Allergy Relief) carvedilol 12.5 mg tablet 12.5 mg PO BID #180 tabs 10/26/21 Unknown Rx furosemide 20 mg tablet 20 mg PO DAILY #90 tabs 11/08/21 Unknown Rx amlodipine 5 mg tablet 5 mg PO BID #180 tabs 11/22/21 11/22/21 Unknown Rx Allergies Allergy/AdvReac Type Severity Reaction Status Date / Time rosuvastatin [From Crestor] Allergy Mild Makes me Verified 12/21/21 02:24 daria nitroglycerin Allergy Unknown Makes me Verified 12/21/21 02:24 wild amitriptyline AdvReac Made me Verified 12/21/21 02:24 weak and daria, wasn't thinking right rivaroxaban [From Xarelto] AdvReac black stool Verified 12/21/21 02:24 PFSH Acute PFSH: Medical History Aortic stenosis CAD (coronary artery disease) Chronic kidney disease Diverticulosis Dyslipidemia GERD (gastroesophageal reflux disease) Hiatal hernia History of Sindy-Kirk syndrome History of pulmonary embolism Insomnia Systolic congestive heart failure Thoracic aortic aneurysm Surgical History History of cataract surgery Bilateral History of cholecystectomy History of coronary artery bypass graft 1996 in 2011 -- 3 vessels total History of coronary artery stent placement Reports a total of 3 stents after her last CABG done in [place], Dr. [facility] History of drainage of abscess Percutaneous, right lower quadrant suspected appendiceal abscess Family History Mother Diabetes Stroke Father Gallbladder disease Brother Chronic kidney disease (CKD) Diabetes Denies family history of CAD (coronary artery disease) Clotting disorder Dementia Suicide Anesthesia complication Bleeding disorder Lung disease Cancer Social History Smoking and tobacco status: never smoked Alcohol intake: never Caregiver/support person: Yes Household members: spouse Physical Exam Const: COMMON NORMALS: patient oriented x3 HENMT: COMMON NORMALS: normocephalic and atraumatic HEAD & SCALP: normocephalic and atraumatic Resp: COMMON NORMALS: normal respiratory effort, No retractions, No use of accessory muscles and clear to auscultation bilaterally EFFORT & INSPECTION: Yes symmetric chest movement AUSCULTATION: clear to auscultation bilaterally Cardio: COMMON NORMALS: regular rate, regular rhythm, S1 normal heart sound present, S2 normal heart sound present, No gallops present (Cardio), No murmurs present (Cardio), No rub (Cardio) and Peripheral pulses 2+ throughout RATE: regular rate RHYTHM: regular rhythm HEART SOUNDS: S1 normal heart sound present and S2 normal heart sound present PERIPHERAL PULSES: Peripheral pulses 2+ throughout GI: COMMON NORMALS: Normal to inspection, nondistended, normoactive bowel sounds present, Soft to palpation, non-tender, No hepatosplenomegaly present and no masses AUSCULTATION: Yes normoactive bowel sounds PALPATION: Yes Soft to palpation and Yes No hepatosplenomegaly present RECTAL EXAM: Yes deferred Extremity: COMMON NORMALS: no clubbing, cyanosis or edema and no pedal edema Neuro: COMMON NORMALS: patient oriented x3 OTHER: Left-sided facial droop, significant left sided weakness. A&P Assessment and plan (1) Stroke: (2) Status post transcatheter aortic valve replacement (TAVR) using bioprosthesis: (3) Atherosclerosis of coronary artery of [place] heart without angina pectoris: (4) Acquired hypothyroidism: (5) Obstructive sleep apnea: (6) Chronic kidney disease: Qualifiers: Chronic kidney disease stage: stage 2 (mild) Qualified Code(s): N18.2 - Chronic kidney disease, stage 2 (mild) (7) Systolic congestive heart failure: Qualifiers: Heart failure chronicity: chronic Qualified Code(s): I50.22 - Chronic systolic (congestive) heart failure Plan 81 year old male with past medical history of coronary artery disease, hypothyroidism, s/p TAVR , heart failure with reduced ejection fraction CKD came in with chief complaint of acute onset of Left-sided weakness, left facial droop and dysarthria, last known well was around 10 PM. Assessment: Acute CVA with left-sided weakness history of coronary artery disease hypothyroidism s/p TAVR heart failure with reduced ejection fraction CKD Plan: Currently patient is on stroke protocol. Allow permissive hypertension for next 48 hours On aspirin Plavix statin PT OT evaluation Speech evaluation Telemetry monitoring Follow 2D echo CODE STATUS: Full code DVT prophylaxis: Will initiate Lovenox from tomorrow. Attestations Medical Necessity Statement*: Patient is in hospital for management of acute CVA. Anticipated length of stay greater than 2 midnights Coding Level of Care Code Acute Accounting Specialist for Chg Fwd Exam Detailed Diagnoses Stroke I63.9 Status post transcatheter aortic valve replacement (TAVR) using bioprosthesis Z95.3 Atherosclerosis of coronary artery of [place] heart without angina pectoris I25.10 Acquired hypothyroidism E03.9 Obstructive sleep apnea G47.33 Chronic kidney disease N18.2 Chronic kidney disease stage: stage 2 (mild) Systolic congestive heart failure I50.22 Heart failure chronicity: chronic
[2021-12-22 03:17] LABS: Basophils % 0.7 %; Eosinophils # 0.3 10^3/uL (0.0-0.8); Hematocrit 40.5 % (42.0-52.0); Hemoglobin 14.1 g/dL (11.7-16.6); Lymphocytes % 17.3 %; Mean Corpuscular HGB Conc 34.8 g/dL (30.0-36.0); Mean Corpuscular Volume 94.8 fl (80-94); Mean Platelet Volume 11.5 fL (7.4-10.4); Monocytes # 0.8 10^3/uL (0.2-0.9); Monocytes % 13.5 %; Neutrophils # 3.49 10^3/uL (1.8-7.7); Neutrophils % 62.1 %; Nucleated Red Blood Cells % 0 %; Platelet Count 102 10^3/cmm (130-400); Red Blood Count 4.27 10^6/uL (4.1-5.3); Red Cell Distribution Width 12.5 % (12.1-15.1); White Blood Count 5.6 10^3/uL (4.0-10.0)
[2021-12-22 03:37] LABS: Blood Urea Nitrogen 24 mg/dL (8-23); Carbon Dioxide 21 mmol/L (22-29); Chloride 109 mmol/L (98-107); Glucose 94 mg/dL (65-115); Magnesium 2.2 mg/dL (1.7-2.3); Osmolality Calculated 296 mOsm/kg (285-295); Sodium 141 mmol/L (136-145)
== END 2021-12-21 02:25 | disposition home or self-care (01) ==
LOC: ER 02:25
PROVIDERS: Internal Medicine; Emergency Provider Family Medicine; PCP Family Medicine
DX: I63.9 Cerebral infarction, unspecified (principal); G81.94 Hemiplegia, unspecified affecting left nondominant side; R47.1 Dysarthria and anarthria; R29.810 Facial weakness; I25.10 Atherosclerotic heart disease of native coronary artery without angina pectoris; I50.22 Chronic systolic (congestive) heart failure; Z95.2 Presence of prosthetic heart valve
CPT/HCPCS: 36415; 80048; 83735; 85025; 93306

== ENCOUNTER → 2022-01-11 09:15 | Outpatient (BNVA) | payer MEDICARE, BC, SELFPAY | PROVIDERS: PCP Family Medicine; Visit Provider Thoracic Surgery (Cardiothoracic Vascular Surgery) | DX: I77.9 Disorder of arteries and arterioles, unspecified (principal) | CPT/HCPCS: 99203 ==

== ENCOUNTER → 2022-01-29 13:37 | Outpatient (BNVA) | payer MEDICARE, BC, SELFPAY | PROVIDERS: PCP Family Medicine; Visit Provider Specialist | DX: I69.354 Hemiplegia and hemiparesis following cerebral infarction affecting left non-dominant side (principal); I69.398 Other sequelae of cerebral infarction; F48.2 Pseudobulbar affect; I65.23 Occlusion and stenosis of bilateral carotid arteries; Z95.0 Presence of cardiac pacemaker | CPT/HCPCS: 99205 ==

== ENCOUNTER → 2022-02-07 11:01 | Outpatient (BNVA) | payer MEDICARE, BC, SELFPAY | PROVIDERS: PCP Family Medicine; Visit Provider Family Medicine | DX: I63.81 Other cerebral infarction due to occlusion or stenosis of small artery (principal); E78.5 Hyperlipidemia, unspecified; E03.9 Hypothyroidism, unspecified | CPT/HCPCS: 80053; 80061; 84443; 85025 ==

== ENCOUNTER → 2022-02-14 10:16 | Outpatient (BNVA) | payer MEDICARE, BC, SELFPAY | PROVIDERS: PCP Family Medicine; Visit Provider Nurse Practitioner Family | DX: I25.118 Atherosclerotic heart disease of native coronary artery with other forms of angina pectoris (principal); I50.22 Chronic systolic (congestive) heart failure; I49.9 Cardiac arrhythmia, unspecified; Z95.1 Presence of aortocoronary bypass graft | CPT/HCPCS: 99214 ==

== ENCOUNTER → 2022-05-21 13:43 | Outpatient (BNVA) | payer MEDICARE, SELFPAY | PROVIDERS: PCP Family Medicine; Visit Provider Family Medicine | DX: I35.0 Nonrheumatic aortic (valve) stenosis (principal); E03.9 Hypothyroidism, unspecified; N18.9 Chronic kidney disease, unspecified; E78.5 Hyperlipidemia, unspecified; I69.398 Other sequelae of cerebral infarction; F06.31 Mood disorder due to known physiological condition with depressive features; H81.10 Benign paroxysmal vertigo, unspecified ear; I63.9 Cerebral infarction, unspecified; N18.2 Chronic kidney disease, stage 2 (mild) | CPT/HCPCS: 80053; 84443 ==

== ENCOUNTER 2022-07-17 10:46 | Outpatient (RCR) | payer MEDICARE, SELFPAY | END 2022-08-08 23:59 | disposition home or self-care (01) | LOC: SPT 10:46 | PROVIDERS: PCP Family Medicine; Visit Provider Family Medicine | DX: H81.10 Benign paroxysmal vertigo, unspecified ear (principal); I63.9 Cerebral infarction, unspecified | CPT/HCPCS: 95992; 97112; 97161 ==

== ENCOUNTER 2022-08-09 06:00 | Outpatient (RCR) | payer MEDICARE, SELFPAY | END 2022-08-22 06:00 | disposition home or self-care (01) | LOC: SPT 06:00 | PROVIDERS: PCP Family Medicine; Visit Provider Family Medicine | DX: I67.89 Other cerebrovascular disease (principal); H81.10 Benign paroxysmal vertigo, unspecified ear | CPT/HCPCS: 97112 ==

== ENCOUNTER → 2022-08-29 12:57 | Outpatient (BNVA) | payer MEDICARE, SELFPAY | PROVIDERS: PCP Family Medicine; Visit Provider Specialist | DX: I25.10 Atherosclerotic heart disease of native coronary artery without angina pectoris (principal); E78.5 Hyperlipidemia, unspecified; I10 Essential (primary) hypertension; Z95.1 Presence of aortocoronary bypass graft | CPT/HCPCS: 99214 ==

== ENCOUNTER → 2022-09-24 13:38 | Outpatient (BNVA) | payer MEDICARE, SELFPAY | PROVIDERS: PCP Family Medicine; Visit Provider Family Medicine | DX: I10 Essential (primary) hypertension (principal); I63.81 Other cerebral infarction due to occlusion or stenosis of small artery; N18.2 Chronic kidney disease, stage 2 (mild) | CPT/HCPCS: 80053; 85025 ==

== ENCOUNTER 2022-10-02 11:24 | Emergency (ER) | payer MEDICARE, SELFPAY ==
[2022-10-02] VITALS (8 sets, daily range): BP systolic 108–168; BP diastolic 66–105; PULSE 62–94; RESP 15–18; TEMP 37; O2SAT 91–98; BMI 23.7
--- NOTE | 2022-10-02 11:41 | ECG_ITS ---
[facility] Test Date: 2022-10-02 Pat Name: Eliza Grimm Department: Room: Gender: Male Election Watcher: : 1940 Requested By: Alex Broderick Order Number: [id number] Laurie MD: Russell Herzog M.D. Measurements Intervals [place] Rate: 68 P: 108 AR: 244 QRS: -50 QRSD: 133 T: 152 QT: 427 QTc: 457 Interpretive Statements ELECTRONIC ATRIAL PACEMAKER INTRAVENTRICULAR CONDUCTION DELAY [130+ ms QRS DURATION] LEFT VENTRICULAR HYPERTROPHY AND ST-T CHANGE [VOLTAGE CRITERIA PLUS ST/T ABNORMALITY] INFERIOR MYOCARDIAL INFARCTION , PROBABLY OLD [40+ ms Q WAVE AND/OR ST/T ABNORMALITY IN II/aVF] Compared to ECG 12/21/2021 15:37:32 Intraventricular conduction delay now present Left ventricular hypertrophy now present ST (T wave) deviation now present Sinus rhythm no longer present First degree AV block no longer present Myocardial infarct finding still present Electronically Signed On 10-02-2022 17:31:47 CDT by Russell Herzog M.D. [email or web address]
--- NOTE | 2022-10-02 11:45 | CT_ITS ---
WS: [id number] CT HEAD TECHNIQUE: Noncontrast CT of the head obtained from the skullbase to the vertex. CLINICAL INFORMATION: sudden oset vertigo COMPARISON: December 21, 2021 DLP: 1069.[address] scans at [facility] use at least one of these dose optimization techniques: automated e xposure control; mA and/or kV adjustment per patient size (includes targeted exams where dose is matc hed to clinical indication); or iterative reconstruction. FINDINGS: No evidence of intracranial hemorrhage or mass effect. Ventricular system and basal cisterns are tabor nt. Moderate to advanced small vessel changes with moderate parenchymal volume loss. Chronic lacunar infarcts in the caudate and RIGHT greater than LEFT basal ganglia. Intracranial vascular calcificatio n. Intracranial vascular calcification. Mastoid air cells are well aerated. Normal posterior nasophar ynx. Paranasal sinuses are well aerated. Paranasal sinuses and mastoid air cells are well aerated. .Normal visualized soft tissues. CT/CT head wo con* [id number] IMPRESSION: 1. No evidence of intracranial hemorrhage or mass effect. 2. Moderate to advanced small vessel changes with moderate parenchymal volume loss. 3. Chronic lacunar infarcts in the caudate bilaterally and RIGHT greater than LEFT basal ganglia. 4. Intracranial vascular calcification. 5. No acute intracranial findings.
--- NOTE | 2022-10-02 11:47 | ED_ITS ---
HPI - Dizziness General: Chief Complaint: Dizziness Stated Complaint: Dizzy/ N/V Time Seen by Provider: 10/02/22 11:26 History of Present Illness: HPI Narrative: Presents to the ER with sudden onset severe nausea and vomiting patient got up this morning and he was feeling fine but when he left the town and came back the vertigo hit him very hard. To the point to lay down and call EMS. Patient has had a past but nowhere near this extreme. Patient has no other complaints at this moment. Patient has had a history of a stroke back in December 2021 and ad mits to losing approximately 30 pounds since then without trying. Patient has been stressed out a lot he recently and thinks this may contribute. [facility] ED PFSH: Medical History Aortic stenosis CAD (coronary artery disease) Chronic kidney disease Diverticulosis Dizziness and giddiness Dyslipidemia Fatigue GERD (gastroesophageal reflux disease) Hiatal hernia History of Sindy-Kirk syndrome History of pulmonary embolism Insomnia Seborrheic keratoses Stroke Systolic congestive heart failure Thoracic aortic aneurysm Surgical History History of cataract surgery Bilateral History of cholecystectomy 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 History of coronary artery stent placement Reports a total of 3 stents after her last CABG done in [facility] Dr. Rogers [facility] History of drainage of abscess Percutaneous, right lower quadrant suspected appendiceal abscess Status post transcatheter aortic valve replacement (TAVR) using bioprosthesis Family History Mother Diabetes Stroke Father Gallbladder disease Brother Chronic kidney disease (CKD) Diabetes Denies family history of CAD (coronary artery disease) Clotting disorder Dementia Suicide Anesthesia complication Bleeding disorder Lung disease Cancer Social History Smoking and tobacco status: never smoked Alcohol intake: never Substance/Drug Use: never Caregiver/support person: Yes Household members: spouse Physical Exam Const: COMMON NORMALS: no acute distress, average body habitus, patient oriented x3, no limitations, healthy appearing, alert and well nourished HENMT: COMMON NORMALS: normocephalic, atraumatic, hearing grossly normal bilaterally, external ears normal, Normal external nose present and moist oral mucous membranes HEAD & SCALP: normocephalic and atraumatic NOSE: Normal external nose present EXTERNAL EAR: Yes external ears normal Eye: COMMON NORMALS: Equal, round and reactive pupils present, EOMs intact bilaterally, conjunctivae normal and no scleral icterus CONJUNCTIVA: Yes conjunctivae normal PUPIL: Yes Equal, round and reactive pupils present Neck/C-Spine: COMMON NORMALS: full ROM, no lymphadenopathy, supple, no meningeal signs, no JVD and Thyroid normal THYROID: Thyroid normal Chest: COMMONS NORMALS: normal inspection of the chest and normal palpation of entire chest wall Resp: COMMON NORMALS: normal respiratory effort, No retractions, No use of accessory muscles and clear to auscultation bilaterally AUSCULTATION: clear to auscultation bilaterally Cardio: COMMON NORMALS: no JVD, regular rate, regular rhythm, S1 normal heart sound present, S2 normal heart sound present, No gallops present (Cardio), No clicks present (Cardio), No murmurs present (Cardio) and No rub (Cardio) RATE: regular rate RHYTHM: regular rhythm HEART SOUNDS: S1 normal heart sound present and S2 normal heart sound present GI: COMMON NORMALS: Normal to inspection, nondistended, normoactive bowel sounds present, Soft to palpation, non-tender, No hepatosplenomegaly present and no masses PALPATION: Yes Soft to palpation and Yes No hepatosplenomegaly present : COMMON NORMALS: Yes no CVA tenderness BLADDER/KIDNEY EXAM: Yes no CVA tenderness Back/Pelvis: COMMON NORMALS: no CVA tenderness Neuro: COMMON NORMALS: patient oriented x3 SENSORIUM/ORIENTATION: Yes alert MENINGEAL SIGNS: Yes no meningeal signs Course Vital Signs: Vital signs: Vital Signs Temperature 98.6 F 10/02/22 11:35 Pulse Rate 88 10/02/22 17:21 Respiratory Rate 16 10/02/22 17:21 Blood Pressure 128/89 10/02/22 17:21 Pulse Oximetry 98 10/02/22 17:21 Oxygen Delivery Me thod Room Air 10/02/22 11:35 MDM - Dizziness Medical Decision Making Presents to the ER with sudden onset dizziness and vomiting. Physical evalu ation was performed as well as laboratory and imaging. Laboratory and imaging was essentially benign. Patient was given dexamethasone 10 mg Compazine 10 mg 1 L normal saline Reglan 10 mg and meclizine 50 mg at various times throughout his ER stay. Patient's dizziness and nausea and vomiting did improve. Patient be discharged home to follow-up with his PCP Differential Diagnosis Likely benign paroxysmal positional vertigo; Unlikely adverse reaction to drug, orthostatic hypotension, vertebral basilar insufficiency, cerebrovascular accident, acute vestibular neuronitis or transient cerebral ischemia Medical Records I reviewed the patient's medical records. Lab Data I reviewed the patient's lab results. 10/02/22 12:38 10/02/22 12:[address] 10/02/22 11:45 IMPRESSION: 1. No evidence of intracranial hemorrhage or mass effect. 2. Moderate to advanced small vessel changes with moderate parenchymal volume loss. 3. Chronic lacunar infarcts in the caudate bilaterally and RIGHT greater than LEFT basal ganglia. 4. Intracranial vascular calcification. 5. No acute intracranial findings. Laboratory Results WBC 8.2 10^3/uL (4.0-10.0) 10/02/22 12:38 RBC 4.52 10^6/uL (4.1-5.3) 10/02/22 12:38 Hgb 14.5 g/dL (11.7-16.6) 10/02/22 12:38 Hct 43.2 % (42.0-52.0) 10/02/22 12:38 MCV 95.6 fl (80-94) H 10/02/22 12:38 MCH 32.1 pg (28.0-34.0) 10/02/22 12:38 MCHC 33.6 g/dL (30.0-36.0) 10/02/22 12:38 RDW 12.1 % (12.1-15.1) 10/02/22 12:38 Plt Count 107 10^3/cmm (130-400) L 10/02/22 12:38 MPV 10.9 fL (7.4-10.4) H 10/02/22 12:38 Neut % (Auto) 80.8 % 10/02/22 12:38 Lymph % (Auto) 8.0 % 10/02/22 12:38 [place] % (Auto) 6.7 % 10/02/22 12:38 Eos % (Auto) 3.4 % 10/02/22 12:38 Baso % (Auto) 0.6 % 10/02/22 12:38 Neut # (Auto) 6.60 10^3/uL (1.8-7.7) 10/02/22 12:38 Lymph # (Auto) 0.7 10^3/uL (0.8-4.8) L 10/02/22 12:38 [place] # (Auto) 0.6 10^3/uL (0.2-0.9) 10/02/22 12:38 Eos # (Auto) 0.3 10^3/uL (0.0-0.8) 10/02/22 12:38 Baso # (Auto) 0.1 10^3/uL (0.0-0.1) 10/02/22 12:38 Nucleated RBC % (auto) 0 % 10/02/22 12:38 Nucleated RBCs # 0.0 /100WBC 10/02/22 12:38 PT 15.40 SECONDS (12.1-14.9) H 10/02/22 12:38 INR 1.18 (0.8-1.2) 10/02/22 12:38 Sodium 143 mmol/L (136-145) 10/02/22 12:38 Potassium 4.3 mmol/L (3.5-5.1) 10/02/22 12:38 Chloride 111 mmol/L (98-107) H 10/02/22 12:38 Carbon Dioxide 22 mmol/L (22-29) 10/02/22 12:38 Anion Gap 14.3 (5-19) 10/02/22 12:38 BUN 23 mg/dL (8-23) 10/02/22 12:38 Creatinine 1.4 mg/dL (0.7-1.2) H 10/02/22 12:38 GFR Calculation Not Reportable 10/02/22 12:38 Glucose 115 mg/dL (65-115) 10/02/22 12:38 Calculated Osmolality 301 mOsm/kg (285-295) H 10/02/22 12:38 Calcium 8.8 mg/dL (8.5-10.5) 10/02/22 12:38 Magnesium 2.2 mg/dL (1.7-2.3) 10/02/22 12:38 Total Bilirubin 0.5 mg/dL (0.15-1.2) 10/02/22 12:38 AST 14 U/L (0-40) 10/02/22 12:38 ALT 9 U/L (0-41) 10/02/22 12:38 Alkaline Phosphatase 79 U/L (40-130) 10/02/22 12:38 NT-Pro-B Natriuret Pep 1189 pg/mL (0-450) H 10/02/22 12:38 Total Protein 6.2 g/dL (6.6-8.7) L 10/02/22 12:38 Albumin 3.7 g/dL (3.5-5.2) 10/02/22 12:38 Globulin 2.5 g/dL (1.3-4.6) 10/02/22 12:38 Urine Color Yellow (Yellow) 10/02/22 18:03 Urine Appearance Clear (CLEAR) 10/02/22 18:03 Urine pH 5 (5-7) 10/02/22 18:03 Ur Specific [place] 1.020 (1.005-1.030) 10/02/22 18:03 Urine Protein Trace (Negative) 10/02/22 18:03 Urine Glucose (UA) Norm (Normal) 10/02/22 18:03 Urine Ketones 1+ (Negative) H 10/02/22 18:03 Urine Blood 2+ (Negative) H 10/02/22 18:03 Urine Nitrate Negative (Negative) 10/02/22 18:03 Urine Bilirubin Neg (Negative) 10/02/22 18:03 Urine Urobilinogen Norm mg/dL (Negative) 10/02/22 18:03 Ur Leukocyte Esterase Negative (Negative) 10/02/22 18:03 Urine RBC 5-10 /hpf (0-2) H 10/02/22 18:03 Urine WBC 0-4 /hpf (0-5) H 10/02/22 18:03 Ur Squamous Epith Cells 0-4 /hpf (0-5) H 10/02/22 18:03 Amorphous Sediment Not Reportable 10/02/22 18:03 Urine Bacteria None /hpf (NONE) 10/02/22 18:03 Urine Mucus 3+ /hpf 10/02/22 18:03 EKG Data EKG 1: I personally reviewed and interpreted this EKG as follows: EKG interpretation date: 10/02/22 EKG interpretation time: 11:41 Prior EKG tracings: not available for review Interpretation: EKG shows electronic atrial pacemaker, ventricular rate 60 bpm, OH 244, QRS 133, QTc of 445, Discharge Plan Discharge Patient Disposition: Home Clinical Impression: Dizziness of unknown cause Nausea & vomiting Qualifiers: Vomiting type: unspecified Qualified Code(s): R11.2 - Nausea with vomiting, unspecified Condition: Stable Prescriptions: New Antivert 50 mg tablet 50 mg PO BID PRN (Reason: dizziness) Qty: 10 0RF No Action (DME) Walking Cane 4 prong See Rx Instructions .Route .MEDSUPPLY Qty: 1 0RF Rx Instructions: As directed amlodipine 10 mg tablet 10 mg PO DAILY Qty: 90 3RF tamsulosin 0.4 mg capsule 0.4 mg PO DAILY 90 Days Qty: 90 3RF docusate sodium 100 mg capsule 100 mg PO BID Qty: 180 3RF furosemide 20 mg tablet 20 mg PO .MON/WED/FRI/SUN Qty: 90 0RF carvedilol 12.5 mg tablet 12.5 mg PO BID Qty: 180 3RF Rx Instructions: Dose increased isosorbide mononitrate 30 mg tablet extended release 24 hr 30 mg PO DAILY Qty: 90 3RF Synthroid 50 mcg tablet 50 mcg PO QAM Qty: 90 3RF famotidine 20 mg tablet See Rx Instructions .ROUTE .COMPLEX Qty: 90 0RF Dose Instruction: TAKE 1 TABLET BY MOUTH AT BEDTIME Rx Instructions: TAKE 1 TABLET BY MOUTH AT BEDTIME Men's One Daily Tablet 1 tab PO DAILY PRN (Reason: unknown) clopidogrel 75 mg Tablet 75 mg PO DAILY Qty: 15 0RF aspirin 81 mg Tablet,Chewable 81 mg PO QAM Qty: 90 3RF Discharge Orders: Discharge ED (Routine); Ordered 10/02/22 Ordered By: See King Referrals: Aicha Moran MD [Primary Care Provider] - 1 week Patient Instructions: Acute Nausea and Vomiting (DC), Dizziness (ED) Activity Restrictions/Additional Instructions: Take your medicine as prescribed. Please follow-up with your family practice doctor within the next 1 week or sooner as needed. May benefit from further evaluation and treatment. Coding Level of Care Code ED [employer] Officer for Gilbert Bettencourt
[2022-10-02] MEDS: meclizine 25 mg tablet 50 MG PO (12:06)
[2022-10-02 13:00] LABS: Basophils # 0.1 10^3/uL (0.0-0.1); Basophils % 0.6 %; Eosinophils # 0.3 10^3/uL (0.0-0.8); Eosinophils % 3.4 %; Hematocrit 43.2 % (42.0-52.0); Hemoglobin 14.5 g/dL (11.7-16.6); Lymphocytes # 0.7 10^3/uL (0.8-4.8); Mean Corpuscular HGB Conc 33.6 g/dL (30.0-36.0); Mean Corpuscular Hemoglobin 32.1 pg (28.0-34.0); Mean Corpuscular Volume 95.6 fl (80-94); Mean Platelet Volume 10.9 fL (7.4-10.4); Monocytes # 0.6 10^3/uL (0.2-0.9); Monocytes % 6.7 %; Neutrophils % 80.8 %; Nucleated Red Blood Cells % 0 %; Platelet Count 107 10^3/cmm (130-400); Red Blood Count 4.52 10^6/uL (4.1-5.3); Red Cell Distribution Width 12.1 % (12.1-15.1); White Blood Count 8.2 10^3/uL (4.0-10.0)
[2022-10-02] MEDS: metoclopramide 5 mg/mL SDV 2 mL 10 MG IVP (13:02)
[2022-10-02] MEDS: dexamethasone 10 mg/mL INJ IVP (13:02)
[2022-10-02] MEDS: prochlorperazine 10 mg/2 mL Inj IVP (13:02)
[2022-10-02] MEDS: sodium chloride 0.9% 1,000 ML 999 ML IV (13:03)
[2022-10-02 13:24] LABS: INR 1.18 (0.8-1.2)
[2022-10-02 13:33] LABS: Alanine Aminotransferase 9 U/L (0-41); Albumin Level 3.7 g/dL (3.5-5.2); Alkaline Phosphatase 79 U/L (40-130); Anion Gap 14.3 (5-19); Aspartate Amino Transferase 14 U/L (0-40); Blood Urea Nitrogen 23 mg/dL (8-23); Calcium 8.8 mg/dL (8.5-10.5); Carbon Dioxide 22 mmol/L (22-29); Chloride 111 mmol/L (98-107); Globulin 2.5 g/dL (1.3-4.6); Glucose 115 mg/dL (65-115); Magnesium 2.2 mg/dL (1.7-2.3); NT Pro B Type Natriuretic Pept 1189 pg/mL (0-450); Osmolality Calculated 301 mOsm/kg (285-295); Potassium 4.3 mmol/L (3.5-5.1); Sodium 143 mmol/L (136-145); Total Bilirubin 0.5 mg/dL (0.15-1.2); Total Protein 6.2 g/dL (6.6-8.7)
[2022-10-02 18:44] LABS: Add Urine Microscopic? YES; Bilirubin Urine Neg (Negative); Blood Urine 2+ (Negative); Glucose Urine UA Norm (Normal); Ketones Urine 1+ (Negative); Leukocyte Esterase Urine Negative (Negative); Nitrate Urine Negative (Negative); Protein Urine Trace (Negative); Urine Appearance Clear (CLEAR); Urine Color Yellow (Yellow); Urobilinogen Urine Norm (Negative); pH Urine 5 (5-7)
[2022-10-02 18:45] LABS: Squamous Epithelial Cell Urine 0-4 /hpf (0-5); WBC Urine 0-4 /hpf (0-5)
[2022-10-02 18:46] LABS: Add Urine Culture? No; Mucus Urine 3+ /hpf
== END 2022-10-02 19:19 | disposition home or self-care (01) ==
PROVIDERS: Family Medicine; Emergency Provider Emergency Medicine; PCP Family Medicine
DX: R42 Dizziness and giddiness (principal); R11.2 Nausea with vomiting, unspecified; Z79.82 Long term (current) use of aspirin; Z79.02 Long term (current) use of antithrombotics/antiplatelets; I25.10 Atherosclerotic heart disease of native coronary artery without angina pectoris; N18.9 Chronic kidney disease, unspecified; E78.5 Hyperlipidemia, unspecified; Z86.73 Personal history of transient ischemic attack (TIA), and cerebral infarction without residual deficits; I50.9 Heart failure, unspecified; Z86.711 Personal history of pulmonary embolism
CPT/HCPCS: 36415; 70450; 80053; 81001; 83735; 83880; 85025; 85610; 93005; 96374; 96375; 99285; J0780; J1100; J2765; J7030; J8597

== ENCOUNTER 2023-01-01 11:41 | Outpatient (CLI) | payer MEDICARE, SELFPAY ==
--- NOTE | 2023-01-01 12:30 | USCV_ITS ---
Sirisha, Eliza Age: 82 Gender: M : 1940 Exam Date: 01/01/2023 12:35 Ordering Phys: Stan Gates MD (Andy) ([email or web address] [place]) Technologist: CT Exam Location: [facility] Indication: stroke Risk Factors: Previous Vascular Surgery: Right Brachial BP: / Left Brachial BP: / Right Left Velocity (cm/s) Spectral Plaque Velocity (cm/s) Spectral Plaque Syst/Diast Broadening Syst/Diast Broadening 58.30/ 13.90 Prox CCA 55.90 / 15.80 50.50/ 17.60 Mid CCA 78.20 / 21.00 41.50/ 10.80 Distal CCA 51.30 / 14.20 78.00/ 29.90 Prox ICA 49.60 / 14.70 81.20/ 19.50 Mid ICA 35.70 / 13.20 76.70/ 19.80 Distal ICA 33.30 / 11.50 76.30 ECA 63.90 1.39 ICA/CCA 0.63 Occluded Vertebral Antegrade / cm/s 44.10/ 21.70 cm/s Bi Subclavian Tri 57.50 65.20 FINDINGS Comparison: none available. No significant elevation of systolic or diastolic velocities. Mixture of calcified and noncalcified plaque in the carotid arteries. Right vertebral artery not visualized. Antegrade left vertebral artery. Thrombus noted in the left internal jugular vein, age indeterminae. CONCLUSIONS Bilateral ICA stenosis less than 50%. Mild diffuse carotid atherosclerosis. Left IJV thrombus, age indeterminate. Dr. Na Patterson DO (Electronically Signed) Final Date: 01 January 2023 13:08 S
== END 2023-01-01 11:42 | disposition home or self-care (01) ==
LOC: RAD 11:41
PROVIDERS: PCP Family Medicine; Visit Provider Thoracic Surgery (Cardiothoracic Vascular Surgery)
DX: I65.23 Occlusion and stenosis of bilateral carotid arteries (principal); I63.81 Other cerebral infarction due to occlusion or stenosis of small artery
CPT/HCPCS: 93880

== ENCOUNTER → 2023-01-10 10:33 | Outpatient (BNVA) | payer MEDICARE, SELFPAY | PROVIDERS: PCP Family Medicine; Visit Provider Thoracic Surgery (Cardiothoracic Vascular Surgery) | DX: I77.9 Disorder of arteries and arterioles, unspecified (principal) | CPT/HCPCS: 99213 ==

== ENCOUNTER → 2023-03-12 11:54 | Outpatient (BNVA) | payer MEDICARE, SELFPAY | PROVIDERS: PCP Family Medicine; Visit Provider Family Medicine | DX: I69.398 Other sequelae of cerebral infarction (principal); F06.31 Mood disorder due to known physiological condition with depressive features; I10 Essential (primary) hypertension; I50.20 Unspecified systolic (congestive) heart failure; I49.9 Cardiac arrhythmia, unspecified | CPT/HCPCS: 80053; 85025 ==

== ENCOUNTER → 2023-04-02 10:55 | Outpatient (BNVA) | payer MEDICARE, SELFPAY | PROVIDERS: PCP Family Medicine; Visit Provider Internal Medicine Cardiovascular Disease | DX: I25.810 Atherosclerosis of coronary artery bypass graft(s) without angina pectoris (principal); I13.0 Hypertensive heart and chronic kidney disease with heart failure and stage 1 through stage 4 chronic kidney disease, or unspecified chronic kidney disease; N18.2 Chronic kidney disease, stage 2 (mild); I50.22 Chronic systolic (congestive) heart failure; E78.5 Hyperlipidemia, unspecified; I77.9 Disorder of arteries and arterioles, unspecified; G47.33 Obstructive sleep apnea (adult) (pediatric); Z95.810 Presence of automatic (implantable) cardiac defibrillator; Z95.1 Presence of aortocoronary bypass graft; I49.8 Other specified cardiac arrhythmias; Z86.73 Personal history of transient ischemic attack (TIA), and cerebral infarction without residual deficits; I71.20 Thoracic aortic aneurysm, without rupture, unspecified | CPT/HCPCS: 99215 ==

== ENCOUNTER 2023-06-19 05:58 | Emergency (ER) | payer MEDICARE, SELFPAY ==
[2023-06-19 05:59] VITALS: BP 157/94; PULSE 83; RESP 16; TEMP 36.4; O2SAT 92; BMI 27.1
--- NOTE | 2023-06-19 05:59 | XRR_ITS ---
PROCEDURE INFORMATION: Exam: XR Chest Exam date and time: 06/19/2023 6:07 AM Age: 82 years old Clinical indication: Other: Dizziness; Prior surgery; Surgery date: 6+ months; Surgery type: Openheart valve replacement pacer; Additional info: Dizziness, fall TECHNIQUE: Imaging protocol: Radiologic exam of the chest. Views: 1 view. COMPARISON: CR XR chest 1V portable [id number] 12/21/2021 2:30 AM FINDINGS: Tubes, catheters and devices: Multi lead electronic cardiac device projects over the left chest. Lungs: Mild right basilar linear atelectasis. No large focal consolidation to suggest overlying pneumonia. Pleural spaces: No large pleural effusion. No distinct pneumothorax. Heart/Mediastinum: Cardiomediastinal silhouette is midline and stable in size. Bones/joints: Postsurgical changes of median sternotomy. XR/XR chest 1V portable [id number] IMPRESSION: Mild right basilar linear atelectasis.
--- NOTE | 2023-06-19 06:02 | W.ED.DIZZY ---
HPI - Dizziness General: Chief Complaint: Fall Stated Complaint: dizziness Time Seen by Provider: 06/19/23 05:59 Source: patient Mode of arrival: EMS History of Present Illness: HPI Narrative: 82-year-old male presents emergency room complaining of being nauseated and dizzy. Patient stroke a year ago. He woke up this morning to the bathroom and became nauseated dizzy slid to the floor is able to get himself back up to go to the bathroom and slid down again. No loss conscious denies chest pain or abdominal pain states he has a difficult time with voiding when I came in the room and he is trying to use a urinal and was unable to void at all states he rarely feels like he gets his bladder completely empty. Did not strike his head and never had a full loss of consciousness he did get very nauseous and vomited during the episode. MD elicited complaint: dizziness Description: lightheadedness and near-syncope History of similar symptoms: Yes Associated symptoms: Denies change in hearing, chest pain, chills, cough, diaphoresis, ear discharge, ear pressure, fevers/chills, headache(s), malaise, nausea, nasal congestion, palpitations, rash, short of breath, syncope, tinnitus, vomiting or weakness Associated neuro symptoms: Deny confusion, difficulty speaking, dysphagia, diplopia, extremity weakness, facial numbness, facial weakness, gait changes, numbness in extremities or visual changes Review of Systems Const: Denies: fever(s), chills, malaise or diaphoresis ENMT: Denies: ear discharge, change in hearing, tinnitus or nasal congestion Card: Denies: chest pain, palpitations or syncope Resp: Denies: dyspnea GI: Denies: abdominal pain, nausea, vomiting or dysphagia : Denies: dysuria, urinary frequency or urinary urgency Musc: Denies: neck pain or back pain Skin/Breast: Denies: rash Neuro: Denies: headache(s), numbness in extremities or confusion [facility] ED PFSH: Medical History (Updated 06/19/23 @ 10:41 by Alex Vyas DO) Cardiac 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 Seborrheic keratoses Stroke Dizziness and giddiness Fatigue Dyslipidemia Diverticulosis Hiatal hernia History of pulmonary embolism History of Sindy-Kirk syndrome Chronic kidney disease Insomnia GERD (gastroesophageal reflux disease) Systolic congestive heart failure Thoracic aortic aneurysm CAD (coronary artery disease) Surgical History (Updated 06/19/23 @ 06:04 by Alex Vyas DO) Status post transcatheter aortic valve replacement (TAVR) using bioprosthesis aortic stenosis History of drainage of abscess Percutaneous, right lower quadrant suspected appendiceal abscess History of cataract surgery Bilateral History of coronary artery stent placement Reports a total of 3 stents after her last CABG done in [facility] Dr. Rogers [facility] 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 History of cholecystectomy Family History Mother Diabetes Stroke Father Gallbladder disease Brother Chronic kidney disease (CKD) Diabetes Denies family history of CAD (coronary artery disease) Clotting disorder Dementia Suicide Anesthesia complication Bleeding disorder Lung disease Cancer Social History Smoking and tobacco/nicotine status: never used tobacco/nicotine Alcohol intake: never Substance/Drug Use: never Caregiver/support person: Yes Household members: spouse Physical Exam Const: COMMON NORMALS: no acute distress GENERAL APPEARANCE: cooperative and comfortable ORIENTATION/CONSCIOUSNESS: Yes awake, Yes oriented to person, Yes oriented to place and Yes oriented to time HENMT: COMMON NORMALS: normocephalic, atraumatic and hearing grossly normal bilaterally HEAD & SCALP: normocephalic and atraumatic Resp: COMMON NORMALS: normal respiratory effort, No retractions, No use of accessory muscles and clear to auscultation bilaterally AUSCULTATION: clear to auscultation bilaterally Cardio: COMMON NORMALS: regular rate, regular rhythm and No murmurs present (Cardio) RATE: regular rate RHYTHM: regular rhythm GI: COMMON NORMALS: Soft to palpation and No hepatosplenomegaly present AUSCULTATION: Yes normoactive bowel sounds PALPATION: Yes Soft to palpation, No Tenderness to palpation present (GI), No Guarding due to palpation present (GI) and Yes No hepatosplenomegaly present Extremity: COMMON NORMALS: normal to inspection, capillary refill normal, no clubbing, cyanosis or edema, no calf tenderness and no pedal edema Neuro: SENSORIUM/ORIENTATION: Yes oriented to person, Yes oriented to place and Yes oriented to time Skin: COMMON NORMALS: no rashes or lesions noted GENERAL SKIN EXAM: no rashes or lesions noted Course Vital Signs: Vital signs: Vital Signs Temperature 97.6 F 06/19/23 05:59 Pulse Rate 62 06/19/23 11:09 Respiratory Rate 12 06/19/23 06:50 Blood Pressure 144/80 06/19/23 11:09 Pulse Oximetry 94 06/19/23 06:50 Oxygen Delivery Me thod Room Air 06/19/23 05:59 MDM - Dizziness Medical Decision Making Urinary retention resolved with trammell. Orthostatics normal - ambulation without symptoms. D/C home w leg bag and increased tamsulosin dose. Case management during arrangements for follow-up with urology. I believe his episode of syncope was precipitated by Valsalva maneuver with the retained urine. He was able to ambulate and had normal orthostatics prior to discharge. Medical Records I reviewed the patient's medical records. Lab Data I reviewed the patient's lab results. 06/19/23 06:17 06/19/23 06:17 Radiology Impressions Chest X-Ray 06/19/23 05:59 IMPRESSION: Mild right basilar linear atelectasis. Laboratory Results WBC 6.61 10^3/uL (3.29-11.43) 06/19/23 06:17 RBC 4.69 10^6/uL (3.85-5.65) 06/19/23 06:17 Hgb 15.30 g/dL (11.27-16.99) 06/19/23 06:17 Hct 44.1 % (37-53) 06/19/23 06:17 MCV 94.0 fl (82-101) 06/19/23 06:17 MCH 32.6 pg (27-33) 06/19/23 06:17 MCHC 34.7 g/dL (30-55) 06/19/23 06:17 RDW 12.2 % (12.1-15.1) 06/19/23 06:17 Plt Count 119 10^3/cmm (157-399) L 06/19/23 06:17 MPV 10.8 fL (7.4-10.4) H 06/19/23 06:17 Neut % (Auto) 72.6 % 06/19/23 06:17 Lymph % (Auto) 10.0 % 06/19/23 06:17 [place] % (Auto) 9.2 % 06/19/23 06:17 Eos % (Auto) 7.3 % 06/19/23 06:17 Baso % (Auto) 0.6 % 06/19/23 06:17 Neut # (Auto) 4.80 10^3/uL (1.8-7.7) 06/19/23 06:17 Lymph # (Auto) 0.7 10^3/uL (0.8-4.8) L 06/19/23 06:17 [place] # (Auto) 0.6 10^3/uL (0.2-0.9) 06/19/23 06:17 Eos # (Auto) 0.5 10^3/uL (0.0-0.8) 06/19/23 06:17 Baso # (Auto) 0.0 10^3/uL (0.0-0.1) 06/19/23 06:17 Nucleated RBC % (auto) 0 % 06/19/23 06:17 Nucleated RBCs # 0.0 /100WBC 06/19/23 06:17 Sodium 142 mmol/L (136-145) 06/19/23 06:17 Potassium 3.8 mmol/L (3.5-5.1) 06/19/23 06:17 Chloride 109 mmol/L (98-107) H 06/19/23 06:17 Carbon Dioxide 22 mmol/L (22-29) 06/19/23 06:17 Anion Gap 14.8 (5-19) 06/19/23 06:17 BUN 19 mg/dL (8-23) 06/19/23 06:17 Creatinine 1.3 mg/dL (0.7-1.2) H 06/19/23 06:17 GFR Calculation Not Reportable 06/19/23 06:17 Glucose 112 mg/dL (65-115) 06/19/23 06:17 Calculated Osmolality 297 mOsm/kg (285-295) H 06/19/23 06:17 Calcium 8.9 mg/dL (8.5-10.5) 06/19/23 06:17 Total Bilirubin 0.4 mg/dL (0.15-1.2) 06/19/23 06:17 AST 13 U/L (0-40) 06/19/23 06:17 ALT 9 U/L (0-41) 06/19/23 06:17 Alkaline Phosphatase 106 U/L (40-130) 06/19/23 06:17 Troponin T Baseline 29 ng/L (0-15) H 06/19/23 06:17 Troponin T 120 Minute 29.66 ng/L (0-15) H 06/19/23 08:15 Delta Troponin T 0.66 ABS# (0-10) 06/19/23 08:15 Total Protein 6.9 g/dL (6.6-8.7) 06/19/23 06:17 Albumin 4.2 g/dL (3.5-5.2) 06/19/23 06:17 Globulin 2.7 g/dL (1.3-4.6) 06/19/23 06:17 Urine Color Yellow (Yellow) 06/19/23 06:42 Urine Appearance Clear (CLEAR) 06/19/23 06:42 Urine pH 5 (5-7) 06/19/23 06:42 Ur Specific [place] 1.015 (1.005-1.030) 06/19/23 06:42 Urine Protein Neg (Negative) 06/19/23 06:42 Urine Glucose (UA) Norm (Normal) 06/19/23 06:42 Urine Ketones Negative (Negative) 06/19/23 06:42 Urine Blood 2+ (Negative) H 06/19/23 06:42 Urine Nitrate Negative (Negative) 06/19/23 06:42 Urine Bilirubin Neg (Negative) 06/19/23 06:42 Urine Urobilinogen Neg mg/dL (Negative) 06/19/23 06:42 Ur Leukocyte Esterase Negative (Negative) 06/19/23 06:42 Urine RBC 5-10 /hpf (0-2) H 06/19/23 06:42 Urine WBC 0-4 /hpf (0-5) H 06/19/23 06:42 Ur Squamous Epith Cells 0-4 /hpf (0-5) H 06/19/23 06:42 Amorphous Sediment Not Reportable 06/19/23 06:42 Urine Bacteria Trace /hpf (NONE) 06/19/23 06:42 Hyaline Casts 0-4 /lpf H 06/19/23 06:42 Urine Mucus Trace /hpf 06/19/23 06:42 All radiology interpretation(s) finalized by discharge Discharge Plan Discharge Patient Disposition: Home Clinical Impression: Acute urinary retention, Vasovagal syncope Condition: Stable Prescriptions: New tamsulosin 0.4 mg capsule 0.4 mg PO BID Qty: 60 0RF Discontinued tamsulosin 0.4 mg capsule 0.4 mg PO DAILY No Action docusate sodium 100 mg capsule 100 mg PO DAILY (DME) Walking Cane 4 prong See Rx Instructions .Route .MEDSUPPLY Qty: 1 0RF Rx Instructions: As directed amlodipine 10 mg tablet 5 mg PO DAILY Qty: 90 3RF furosemide 20 mg tablet 20 mg PO .MON/SAT/SAT/SAT Qty: 90 0RF isosorbide mononitrate 30 mg tablet extended release 24 hr 30 mg PO DAILY Qty: 90 3RF carvedilol 12.5 mg tablet 12.5 mg PO BID Qty: 180 3RF Synthroid 50 mcg tablet 50 mcg PO QAM Qty: 90 3RF aspirin 81 mg Tablet,Chewable 81 mg PO QAM Qty: 90 3RF famotidine 20 mg Tablet 20 mg PO BEDTIME Men's Daily 0.4-600 mg-mcg Capsule 1 cap PO DAILY Discharge Orders: Discharge ED (Routine); Ordered 06/19/23 Ordered By: Alex Vyas Referrals: Aicha Moran MD [Primary Care Provider] - Discharge Diet: Usual diet Discharge Activity: Increase activity as tolerated Patient Instructions: Urinary Retention in Men (ED), Syncope in Older Adults (ED), Opioid Safety, Pain Management Activity Restrictions/Additional Instructions: Thank you for choosing [facility] for your healthcare needs today. Please realize this is an emergency room and that we are providing you with a medical screening exam and this may not be complete and all inclusive of all the testing and or work up that you may need to determine your ailment or severity of your illness. It is very important that you follow up as instructed or that you return to the Emergency Department should you have concerns or if your condition changes or worsens in any way. You are seen today after I syncopal episode. Suspect this was related to urinary retention that was noted today. Recommend you leave the Trammell catheter in place until you see urology. Case management will make arrangements for a urology consultation. Also recommend that you increase your tamsulosin to 1 tablet twice a day. Coding Level of Care Code ED Stone Sandblaster for Gilbert Bettencourt
--- NOTE | 2023-06-19 06:06 | ECG_ITS ---
[facility] Test Date: 2023-06-19 Pat Name: Eliza Grimm Department: Room: Gender: Male Credit Administration Officer: : 1940 Requested By: Alex Broderick Order Number: [id number] Laurie MD: Troy Evans M.D. Measurements Intervals [place] Rate: 75 P: 93 ND: 155 QRS: -72 QRSD: 173 T: 145 QT: 453 QTc: 507 Interpretive Statements ELECTRONIC ATRIAL PACEMAKER. ELECTRONIC VENTRICULAR PACEMAKER ABNORMAL RHYTHM ECG Compared to ECG 10/02/2022 11:41:52 Intraventricular conduction delay no longer present Left ventricular hypertrophy no longer present ST (T wave) deviation no longer present Myocardial infarct finding no longer present Electronically Signed On 06-19-2023 18:38:18 CDT by Troy Evans M.D. [email or web address].[employer]/store/NU/[id number]
[2023-06-19 06:31] LABS: Basophils % 0.6 %; Eosinophils # 0.5 10^3/uL (0.0-0.8); Eosinophils % 7.3 %; Hematocrit 44.1 % (37-53); Lymphocytes # 0.7 10^3/uL (0.8-4.8); Mean Corpuscular HGB Conc 34.7 g/dL (30-55); Mean Corpuscular Hemoglobin 32.6 pg (27-33); Mean Platelet Volume 10.8 fL (7.4-10.4); Monocytes # 0.6 10^3/uL (0.2-0.9); Monocytes % 9.2 %; Neutrophils % 72.6 %; Nucleated Red Blood Cells % 0 %; Platelet Count 119 10^3/cmm (157-399); Red Blood Count 4.69 10^6/uL (3.85-5.65); Red Cell Distribution Width 12.2 % (12.1-15.1); White Blood Count 6.61 10^3/uL (3.29-11.43)
[2023-06-19 06:46] LABS: Alanine Aminotransferase 9 U/L (0-41); Albumin Level 4.2 g/dL (3.5-5.2); Alkaline Phosphatase 106 U/L (40-130); Anion Gap 14.8 (5-19); Aspartate Amino Transferase 13 U/L (0-40); Blood Urea Nitrogen 19 mg/dL (8-23); Calcium 8.9 mg/dL (8.5-10.5); Carbon Dioxide 22 mmol/L (22-29); Chloride 109 mmol/L (98-107); Creatinine Clr Calc Pharmacy 50.4518; Globulin 2.7 g/dL (1.3-4.6); Glucose 112 mg/dL (65-115); Osmolality Calculated 297 mOsm/kg (285-295); Potassium 3.8 mmol/L (3.5-5.1); Sodium 142 mmol/L (136-145); Total Bilirubin 0.4 mg/dL (0.15-1.2); Total Protein 6.9 g/dL (6.6-8.7); Troponin(5th) Baseline 29 ng/L (0-15)
[2023-06-19 06:50] VITALS: BP 139/83; PULSE 60; RESP 12; O2SAT 94
[2023-06-19 07:23] LABS: Add Urine Microscopic? YES; Bacteria Urine TRACE /hpf; Bilirubin Urine Neg (Negative); Blood Urine 2+ (Negative); Glucose Urine UA Norm (Normal); Ketones Urine Negative (Negative); Leukocyte Esterase Urine Negative (Negative); Mucus Urine TRACE /hpf; Nitrate Urine Negative (Negative); Protein Urine Neg (Negative); Specific Gravity, Urine 1.015 (1.005-1.030); Squamous Epithelial Cell Urine 0-4 /hpf (0-5); Urine Appearance Clear (CLEAR); Urine Color Yellow (Yellow); Urobilinogen Urine Neg (Negative); WBC Urine 0-4 /hpf (0-5); pH Urine 5 (5-7)
[2023-06-19 07:24] LABS: Add Urine Culture? No; Hyaline Casts Urine 0-4 /lpf
--- NOTE | 2023-06-19 07:59 | ECG_ITS ---
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 Measurements Intervals [place] Rate: 62 P: 100 UT: 171 QRS: -71 QRSD: 146 T: 171 QT: 474 QTc: 485 Interpretive Statements ELECTRONIC ATRIAL PACEMAKER ELECTRONIC VENTRICULAR PACEMAKER ABNORMAL RHYTHM ECG Compared to ECG 06/19/2023 06:06:44 No significant changes Electronically Signed On 06-19-2023 18:44:23 CDT by Troy Evans M.D. [id number]
[2023-06-19 08:47] LABS: Troponin 5 2HR 29.66 ng/L (0-15); Troponin 5 2HR Delta 0.66 ABS# (0-10)
[2023-06-19 11:09] VITALS: BP 130/81; BP 134/81; BP 144/80; PULSE 62; PULSE 64; PULSE 69
--- NOTE | 2023-06-25 10:33 | DCPLANNER ---
Referral sent to [facility] plus urology -referral - spoke to daughter patient has appointment already
== END 2023-06-19 11:53 | disposition home or self-care (01) ==
PROVIDERS: Emergency Provider Family Medicine; PCP Family Medicine
DX: R33.9 Retention of urine, unspecified (principal); R55 Syncope and collapse; Z79.82 Long term (current) use of aspirin; Z86.73 Personal history of transient ischemic attack (TIA), and cerebral infarction without residual deficits; E78.5 Hyperlipidemia, unspecified; N18.9 Chronic kidney disease, unspecified; I50.20 Unspecified systolic (congestive) heart failure; I25.10 Atherosclerotic heart disease of native coronary artery without angina pectoris; Z95.1 Presence of aortocoronary bypass graft
CPT/HCPCS: 36415; 51702; 71045; 80053; 81001; 84484; 85025; 93005; 99285

== ENCOUNTER 2023-06-21 08:21 | Inpatient (IN) | payer MEDICARE, SELFPAY ==
[2023-06-21] VITALS (9 sets, daily range): BP systolic 105–150; BP diastolic 72–91; PULSE 58–75; RESP 14–18; TEMP 36.4–36.9; O2SAT 94–97
--- NOTE | 2023-06-21 08:35 | ECG_ITS ---
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 Measurements Intervals [place] Rate: 70 P: 123 TX: 165 QRS: -86 QRSD: 167 T: 129 QT: 464 QTc: 503 Interpretive Statements ELECTRONIC ATRIAL PACEMAKER ELECTRONIC VENTRICULAR PACEMAKER Compared to ECG 06/19/2023 08:19:22 No significant changes Electronically Signed On 06-21-2023 17:01:33 CDT by Russell Herzog M.D. [email or web address] centerExabloxlou[facility].[employer]/store/OM/[id number]
[2023-06-21 08:49] LABS: Basophils % 0.6 %; Eosinophils # 0.3 10^3/uL (0.0-0.8); Eosinophils % 5.4 %; Hematocrit 42.8 % (37-53); Lymphocytes # 0.9 10^3/uL (0.8-4.8); Lymphocytes % 14.1 %; Mean Corpuscular HGB Conc 34.8 g/dL (30-55); Mean Corpuscular Hemoglobin 32.8 pg (27-33); Mean Corpuscular Volume 94.3 fl (82-101); Mean Platelet Volume 10.7 fL (7.4-10.4); Monocytes # 0.6 10^3/uL (0.2-0.9); Monocytes % 10.2 %; Neutrophils # 4.37 10^3/uL (1.8-7.7); Neutrophils % 69.4 %; Nucleated Red Blood Cells % 0 %; Platelet Count 121 10^3/cmm (157-399); Red Blood Count 4.54 10^6/uL (3.85-5.65); Red Cell Distribution Width 12.1 % (12.1-15.1)
--- NOTE | 2023-06-21 08:53 | CT_ITS ---
WS: [id number] CT HEAD NONCONTRAST HISTORY: dizziness TECHNIQUE: Contiguous axial imaging performed through the brain in 2.5 mm imaging. Bone and soft tiss ue windows. Sagittal and coronal reformats reviewed. All CT scans at [facility] use at least one of these dose optimization techniques: automated exposure control; mA and/or kV adjustment per pa tient size (includes targeted exams where dose is matched to clinical indication); or iterative recon struction. DLP: 1114.08 mGy.cm COMPARISON: 09/12/2022 No acute intracranial hemorrhage, midline shift or mass effect. Moderate to advanced small vessel ischemic disease and atrophy. No obvious progression as compared to the prior examination. Chronic lacunar infarcts in the caudate and basal ganglia. No obvious progres nacho. Moderate to advanced cerebellar atrophy. Ventricles: Normal size with no hydrocephalus. Paranasal sinuses: As visualized are clear. Mastoid air cells: Well pneumatized. Calvarium and scalp: Skull is intact with no soft tissue edema or swelling. Moderate intracranial atherosclerotic plaque in the carotid arteries. IMPRESSION: 1. No acute intracranial hemorrhage or edema. 2. Moderate to severe atrophy and small vessel ischemic disease and prior lacunar infarcts. Stable s osmar 10/02/2022.
--- NOTE | 2023-06-21 08:53 | XR_ITS ---
WS: [id number] Portable AP upright chest, 06/21/2023 Clinical Data: dyspnea/cough Comparison: Portable chest, 06/19/2023 Findings: No nodules, masses or effusions are seen. The heart is normal. The pulmonary vascularity is not increased. No pneumonia or pneumothorax is seen. There is a cardiac pacemaker with additional de fibrillator capabilities unchanged in position. The aortic arch and descending thoracic aorta show to rtuosity. Monitor leads are on the chest wall. Impression: 1. No change in appearance of cardiac pacemaker. 2. Atherosclerosis.
--- NOTE | 2023-06-21 08:55 | W.ED.DIZZY ---
HPI - Dizziness General: Chief Complaint: Dizziness Stated Complaint: dizzy Time Seen by Provider: 06/21/23 08:28 Source: patient Mode of arrival: ambulatory History of Present Illness: HPI Narrative: 82-year-old male presents emergency room complaining of dizziness. Patient was seen 2 days ago at that time he had complaints of near syncopal episode after standing while attempting to urinate. He was found to have urinary retention and a Cutler was placed. He had a previous CVA and he was discharged home on dual antiplatelet therapy but that was walked back and is currently only on aspirin. His stroke score on arrival here is 0. States his dizziness is only present when he is up and walking. His orthostatics only last seen him were normal and he had ambulated prior to discharge without difficulty. He did have 1 episode of vomiting after he was discharged home 2 days ago and continued intermittent dizziness when he is up and active since. MD elicited complaint: dizziness Description: sense of movement and lightheadedness Exacerbating factors: change in body position Relieving factors: remaining still, rest and lying down Associated symptoms: Denies change in hearing, chest pain, chills, cough, diaphoresis, ear discharge, ear pressure, fevers/chills, headache(s), malaise, nausea, nasal congestion, palpitations, rash, short of breath, syncope, tinnitus, vomiting or weakness Associated neuro symptoms: Deny confusion, difficulty speaking, dysphagia, diplopia, extremity weakness, facial numbness, facial weakness, gait changes, numbness in extremities or visual changes Review of Systems Const: Denies: fever(s), chills, malaise or diaphoresis ENMT: Denies: ear discharge, change in hearing, tinnitus or nasal congestion Card: Denies: chest pain, palpitations or syncope Resp: Denies: dyspnea GI: Denies: abdominal pain, nausea, vomiting or dysphagia : Denies: dysuria, urinary frequency or urinary urgency Musc: Denies: neck pain or back pain Skin/Breast: Denies: rash Neuro: Denies: headache(s), numbness in extremities or confusion [facility] PFSH: Medical History (Updated 06/19/23 @ 10:41 by Alex Vyas DO) Cardiac 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 Seborrheic keratoses Stroke Dizziness and giddiness Fatigue Dyslipidemia Diverticulosis Hiatal hernia History of pulmonary embolism History of Sindy-Kirk syndrome Chronic kidney disease Insomnia GERD (gastroesophageal reflux disease) Systolic congestive heart failure Thoracic aortic aneurysm CAD (coronary artery disease) Surgical History (Updated 06/19/23 @ 06:04 by Alex Vyas DO) Status post transcatheter aortic valve replacement (TAVR) using bioprosthesis aortic stenosis History of drainage of abscess Percutaneous, right lower quadrant suspected appendiceal abscess History of cataract surgery Bilateral History of coronary artery stent placement Reports a total of 3 stents after her last CABG done in [facility] Dr. Rogers [facility] History of coronary artery bypass graft 1996 in 2010 -- 3 vessels total History of cholecystectomy Family History Mother Diabetes Stroke Father Gallbladder disease Brother Chronic kidney disease (CKD) Diabetes Denies family history of CAD (coronary artery disease) Clotting disorder Dementia Suicide Anesthesia complication Bleeding disorder Lung disease Cancer Social History Smoking and tobacco/nicotine status: never used tobacco/nicotine Alcohol intake: never Substance/Drug Use: never Caregiver/support person: Yes Household members: spouse Physical Exam Const: COMMON NORMALS: no acute distress GENERAL APPEARANCE: cooperative and comfortable ORIENTATION/CONSCIOUSNESS: Yes awake, Yes oriented to person, Yes oriented to place and Yes oriented to time HENMT: COMMON NORMALS: normocephalic, atraumatic and hearing grossly normal bilaterally HEAD & SCALP: normocephalic and atraumatic Resp: COMMON NORMALS: normal respiratory effort, No retractions, No use of accessory muscles and clear to auscultation bilaterally AUSCULTATION: clear to auscultation bilaterally Cardio: COMMON NORMALS: regular rate, regular rhythm and No murmurs present (Cardio) RATE: regular rate RHYTHM: regular rhythm GI: COMMON NORMALS: Soft to palpation and No hepatosplenomegaly present AUSCULTATION: Yes normoactive bowel sounds PALPATION: Yes Soft to palpation, No Tenderness to palpation present (GI), No Guarding due to palpation present (GI) and Yes No hepatosplenomegaly present Extremity: COMMON NORMALS: normal to inspection, capillary refill normal, no clubbing, cyanosis or edema, no calf tenderness and no pedal edema Neuro: SENSORIUM/ORIENTATION: Yes oriented to person, Yes oriented to place and Yes oriented to time Skin: COMMON NORMALS: no rashes or lesions noted GENERAL SKIN EXAM: no rashes or lesions noted Course Vital Signs: Vital signs: Vital Signs Temperature 97.6 F 06/21/23 08:30 Pulse Rate 69 06/21/23 10:35 Respiratory Rate 16 06/21/23 10:35 Blood Pressure 127/83 06/21/23 10:35 Pulse Oximetry 97 06/21/23 10:35 Oxygen Delivery Me thod Room Air 06/21/23 08:30 MDM - Dizziness Medical Decision Making Patient has dizziness whenever he gets up or sits up it is improved with the Ativan given. We have seen him the other day to evaluate and may consider the possibility of posterior stroke however he is able to ambulate fairly well. The son who is with the patient states that he went home that day vomited but then yesterday had a very good day had no symptoms now has recurrent symptoms again today. Repeat UA is negative white count is normal will admit for persistent labyrinthitis. May need further evaluation CT of the head was negative today no acute findings. Discussed with hospitalist orders written Medical Records I reviewed the patient's medical records. Lab Data I reviewed the patient's lab results. 06/21/23 08:40 06/21/23 08:40 Laboratory Results WBC 6.30 10^3/uL (3.29-11.43) 06/21/23 08:40 RBC 4.54 10^6/uL (3.85-5.65) 06/21/23 08:40 Hgb 14.90 g/dL (11.27-16.99) 06/21/23 08:40 Hct 42.8 % (37-53) 06/21/23 08:40 MCV 94.3 fl (82-101) 06/21/23 08:40 MCH 32.8 pg (27-33) 06/21/23 08:40 MCHC 34.8 g/dL (30-55) 06/21/23 08:40 RDW 12.1 % (12.1-15.1) 06/21/23 08:40 Plt Count 121 10^3/cmm (157-399) L 06/21/23 08:40 MPV 10.7 fL (7.4-10.4) H 06/21/23 08:40 Neut % (Auto) 69.4 % 06/21/23 08:40 Lymph % (Auto) 14.1 % 06/21/23 08:40 [place] % (Auto) 10.2 % 06/21/23 08:40 Eos % (Auto) 5.4 % 06/21/23 08:40 Baso % (Auto) 0.6 % 06/21/23 08:40 Neut # (Auto) 4.37 10^3/uL (1.8-7.7) 06/21/23 08:40 Lymph # (Auto) 0.9 10^3/uL (0.8-4.8) 06/21/23 08:40 [place] # (Auto) 0.6 10^3/uL (0.2-0.9) 06/21/23 08:40 Eos # (Auto) 0.3 10^3/uL (0.0-0.8) 06/21/23 08:40 Baso # (Auto) 0.0 10^3/uL (0.0-0.1) 06/21/23 08:40 Nucleated RBC % (auto) 0 % 06/21/23 08:40 Nucleated RBCs # 0.0 /100WBC 06/21/23 08:40 Sodium 140 mmol/L (136-145) 06/21/23 08:40 Potassium 3.7 mmol/L (3.5-5.1) 06/21/23 08:40 Chloride 107 mmol/L (98-107) 06/21/23 08:40 Carbon Dioxide 23 mmol/L (22-29) 06/21/23 08:40 Anion Gap 13.7 (5-19) 06/21/23 08:40 BUN 21 mg/dL (8-23) 06/21/23 08:40 Creatinine 1.4 mg/dL (0.7-1.2) H 06/21/23 08:40 GFR Calculation Not Reportable 06/21/23 08:40 Glucose 103 mg/dL (65-115) 06/21/23 08:40 Calculated Osmolality 293 mOsm/kg (285-295) 06/21/23 08:40 Lactic Acid 1.0 mmol/L (0.5-2.2) 06/21/23 08:40 Calcium 8.9 mg/dL (8.5-10.5) 06/21/23 08:40 Total Bilirubin 0.6 mg/dL (0.15-1.2) 06/21/23 08:40 AST 12 U/L (0-40) 06/21/23 08:40 ALT 8 U/L (0-41) 06/21/23 08:40 Alkaline Phosphatase 99 U/L (40-130) 06/21/23 08:40 Troponin T Baseline 34 ng/L (0-15) H 06/21/23 08:40 Total Protein 6.7 g/dL (6.6-8.7) 06/21/23 08:40 Albumin 3.9 g/dL (3.5-5.2) 06/21/23 08:40 Globulin 2.8 g/dL (1.3-4.6) 06/21/23 08:40 Urine Color Yellow (Yellow) 06/21/23 09:16 Urine Appearance Clear (CLEAR) 06/21/23 09:16 Urine pH 6.5 (5-7) 06/21/23 09:16 Ur Specific [place] 1.010 (1.005-1.030) 06/21/23 09:16 Urine Protein Trace (Negative) 06/21/23 09:16 Urine Glucose (UA) Norm (Normal) 06/21/23 09:16 Urine Ketones Negative (Negative) 06/21/23 09:16 Urine Blood 2+ (Negative) H 06/21/23 09:16 Urine Nitrate Negative (Negative) 06/21/23 09:16 Urine Bilirubin Neg (Negative) 06/21/23 09:16 Urine Urobilinogen Norm mg/dL (Negative) 06/21/23 09:16 Ur Leukocyte Esterase Negative (Negative) 06/21/23 09:16 Urine RBC 0-4 /hpf (0-2) H 06/21/23 09:16 Urine WBC Rare /hpf (0-5) 06/21/23 09:16 Ur Squamous Epith Cells None /hpf (0-5) 06/21/23 09:16 Amorphous Sediment Not Reportable 06/21/23 09:16 Urine Bacteria None /hpf (NONE) 06/21/23 09:16 All radiology interpretation(s) finalized by discharge Discharge Plan Discharge Condition: Stable Prescriptions: No Action docusate sodium 100 mg capsule 100 mg PO DAILY (DME) Walking Cane 4 prong See Rx Instructions .Route .MEDSUPPLY Qty: 1 0RF Rx Instructions: As directed amlodipine 10 mg tablet 5 mg PO DAILY Qty: 90 3RF furosemide 20 mg tablet 20 mg PO .MON/WED/FRI/SUN Qty: 90 0RF isosorbide mononitrate 30 mg tablet extended release 24 hr 30 mg PO DAILY Qty: 90 3RF carvedilol 12.5 mg tablet 12.5 mg PO BID Qty: 180 3RF Synthroid 50 mcg tablet 50 mcg PO QAM Qty: 90 3RF aspirin 81 mg Tablet,Chewable 81 mg PO QAM Qty: 90 3RF famotidine 20 mg Tablet 20 mg PO BEDTIME Men's Daily 0.4-600 mg-mcg Capsule 1 cap PO DAILY tamsulosin 0.4 mg capsule 0.4 mg PO BID Qty: 60 0RF Referrals: Aicha Moran MD [Primary Care Provider] - Coding Level of Care Code ED Private Wealth Advisor for Gilbert Bettencourt NIH stroke score NIHSS Level Of Consciousness - 1a: 0 Level Of Consciousness Questions - 1b: Both Correct Level Of Consciousness Commands - 1c: Both Correct Best Gaze - 2: Normal Visual [place] - 3: No Visual Loss Facial Palsy - 4: Normal Motor Arm Right - 5: No Drift Motor Arm Left - 5: No Drift Motor Leg Right - 6: No Drift Motor Leg Left - 6: No Drift Limb Ataxia - 7: Absent Sensory - 8: Normal Best Language - 9: No Aphasia Dysarthia - 10: Normal Extinction And Inattention - 11: 0 Score Total Score: 0
[2023-06-21 09:02] LABS: Alanine Aminotransferase 8 U/L (0-41); Albumin Level 3.9 g/dL (3.5-5.2); Alkaline Phosphatase 99 U/L (40-130); Anion Gap 13.7 (5-19); Aspartate Amino Transferase 12 U/L (0-40); Blood Urea Nitrogen 21 mg/dL (8-23); Calcium 8.9 mg/dL (8.5-10.5); Carbon Dioxide 23 mmol/L (22-29); Chloride 107 mmol/L (98-107); Creatinine Clr Calc Pharmacy 44.7963; Globulin 2.8 g/dL (1.3-4.6); Glucose 103 mg/dL (65-115); Osmolality Calculated 293 mOsm/kg (285-295); Potassium 3.7 mmol/L (3.5-5.1); Sodium 140 mmol/L (136-145); Total Bilirubin 0.6 mg/dL (0.15-1.2); Total Protein 6.7 g/dL (6.6-8.7)
[2023-06-21 09:04] LABS: Troponin(5th) Baseline 34 ng/L (0-15)
--- NOTE | 2023-06-21 10:21 | ECG_ITS ---
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 Measurements Intervals [place] Rate: 62 P: 155 HI: 167 QRS: -78 QRSD: 162 T: 164 QT: 471 QTc: 482 Interpretive Statements ELECTRONIC ATRIAL PACEMAKER ELECTRONIC VENTRICULAR PACEMAKER Compared to ECG 06/21/2023 08:35:04 No significant changes Electronically Signed On 06-21-2023 17:07:14 CDT by Russell Herzog M.D. [email or web address] [email or web address] regional health centerHospitalists [facility].[employer]/store/OM/[id number]
[2023-06-21] MEDS: LORazepam 2 mg/mL INJ 10 mL MDV 1 MG IVP (10:26)
[2023-06-21 11:55] LABS: Add Urine Microscopic? YES; Bilirubin Urine Neg (Negative); Blood Urine 2+ (Negative); Glucose Urine UA Norm (Normal); Ketones Urine Negative (Negative); Leukocyte Esterase Urine Negative (Negative); Nitrate Urine Negative (Negative); Protein Urine Trace (Negative); Urine Appearance Clear (CLEAR); Urine Color Yellow (Yellow); Urobilinogen Urine Norm (Negative); pH Urine 6.5 (5-7)
[2023-06-21 11:57] LABS: Add Urine Culture? No; RBC Urine 0-4 /hpf (0-2); WBC Urine RARE /hpf (0-5)
[2023-06-21 13:03] LABS: Troponin 5 2HR 31.25 ng/L (0-15)
--- NOTE | 2023-06-21 13:03 | P.HP_ITS ---
Providers/Chief Complaint 2 Admitting Physician: Drew Roe MD, Hospitalist Primary Care Provider: Aicha Moran MD Chief Complaint: dizzy History of Present Illness Eliza Grimm is a 82 year old male initially presented to the emergency department on June 18 with some nausea. He was found to have significant urinary retention and a catheter was placed. He initially did better the next day. The following day upon going to the bathroom to empty his catheter he was nauseous again. He did not vomit. He reported he was dizzy like he was before, with the room spinning. This helps to close his eyes and lay down, but can occur with increased frequency with sitting, or moving his head. He has previously had some inner ear difficulties, but is also had a stroke. He believes the left side of his body, is a little bit more weak than his normal following his stroke. He denies any significant headache. He has had a slight cough but no fever. He denies any blood in his stool or black or tarry stools. He did not pass out with his dizziness this morning, instead just sliding down the bathroom wall with no loss of consciousness. No chest pain or shortness of breath. Review of Systems 2 General: Reports: 10 or more systems reviewed and unremarkable except in HPI and below Card: Denies: chest pain Resp: Denies: dyspnea GI: Reports: nausea; Denies: abdominal pain, vomiting, hematochezia or melena Medications/Allergies Home Medications Medication Instructions Recorded Confirmed Last Taken Type aspirin 81 mg chewable tablet 81 mg PO QAM #90 tabs 12/25/21 06/21/23 06/21/23 Rx Walking Cane 4 prong #1 ea 02/07/22 06/21/23 Unknown Rx isosorbide mononitrate 30 mg 30 mg PO DAILY #90 tabs 10/23/22 06/21/23 06/21/23 Rx tablet,extended release 24 hr docusate sodium 100 mg capsule 100 mg PO DAILY 01/10/23 06/21/23 06/21/23 History carvedilol 12.5 mg tablet 12.5 mg PO BID #180 tabs 01/18/23 06/21/23 06/21/23 Rx furosemide 20 mg tablet 20 mg PO .SAT/SAT/SAT/SUN #90 tabs 04/02/23 06/21/23 06/21/23 Rx amlodipine 10 mg tablet 5 mg (1/2 x 10 mg) PO DAILY #90 04/23/23 06/21/23 06/21/23 Rx tabs levothyroxine 50 mcg tablet 50 mcg PO QAM #90 tabs 04/24/23 06/21/23 06/21/23 Rx (Synthroid) famotidine 20 mg tablet 20 mg PO BEDTIME 06/19/23 06/21/23 06/20/23 History multivit with minerals-folic 1 cap PO DAILY 06/19/23 06/21/23 06/21/23 History acid-lycopene 0.4 mg-600 mcg capsule (Men's Daily) tamsulosin 0.4 mg capsule 0.4 mg PO BID #60 caps 06/19/23 06/21/23 06/21/23 Rx Allergies Allergy/AdvReac Type Severity Reaction Status Date / Time rosuvastatin [From Crestor] Allergy Mild Makes me Verified 06/21/23 08:36 daria nitroglycerin Allergy Unknown Makes me Verified 06/21/23 08:36 wild amitriptyline AdvReac Made me Verified 06/21/23 08:36 weak and daria, wasn't thinking right rivaroxaban [From Xarelto] AdvReac black stool Verified 06/21/23 08:36 PFSH Acute 2 PFSH: Medical History Cardiac 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 Seborrheic keratoses Stroke Dizziness and giddiness Fatigue Dyslipidemia Diverticulosis Hiatal hernia History of pulmonary embolism History of Sindy-Kirk syndrome Chronic kidney disease Insomnia GERD (gastroesophageal reflux disease) Systolic congestive heart failure Thoracic aortic aneurysm CAD (coronary artery disease) Surgical History Status post transcatheter aortic valve replacement (TAVR) using bioprosthesis aortic stenosis History of drainage of abscess Percutaneous, right lower quadrant suspected appendiceal abscess History of cataract surgery Bilateral History of coronary artery stent placement Reports a total of 3 stents after her last CABG done in [place], Dr. Rogers [facility] History of coronary artery bypass graft 1996 in 2010 -- 3 vessels total History of cholecystectomy Family History Mother Diabetes Stroke Father Gallbladder disease Brother Chronic kidney disease (CKD) Diabetes Denies family history of CAD (coronary artery disease) Clotting disorder Dementia Suicide Anesthesia complication Bleeding disorder Lung disease Cancer Social History Smoking and tobacco/nicotine status: never used tobacco/nicotine Alcohol intake: never Substance/Drug Use: never Caregiver/support person: Yes Household members: spouse Vitals/I&O/Wt Last Vital Signs Temp 97.6 F 06/21/23 08:30 Pulse 69 06/21/23 10:35 Resp 16 06/21/23 10:35 BP 127/83 06/21/23 10:35 Pulse Ox 97 06/21/23 10:35 O2 Del Method Room Air 06/21/23 08:30 Weight last 48 hrs Weight 81.647 kg Physical Exam 2 Narrative: General exam is a conversive white male in no apparent distress HEENT: Atraumatic normocephalic. Pupils equally round. Oropharynx clear. Neck is supple no lymphadenopathy thyromegaly Cardiovascular regular rate and rhythm with a 2/6 systolic murmur. Device is noted left chest. Lungs clear no wheezing or crackles Abdomen is soft positive bowel sounds. No obvious organomegaly exams deferred Extremities no cyanosis clubbing or edema Skin no rash Neuro: Left-sided weakness, particular lower extremity. Upper extremities difficult to notice any abnormality. No obvious cerebellar dysfunction or nystagmus. Left lower extremity is approximately 3-4/5 in strength. There is atrophy noted of his left lower extremity consistent with previous stroke. Data 06/21/23 08:40 06/21/23 08:40 Other Labs: LFTs are normal Troponin is 34 with repeat of 31 Albumin 3.9, calcium normal Urinalysis 2+ blood but 0-[address] whites CT head no hemorrhage. Prior lacunar infarcts. Overall stable from previous CT scan. I reviewed this as well Chest x-ray by my review atherosclerosis, no infiltrate, pacemaker/defibrillator noted EKG per my read demonstrates paced beats, ventricular A&P Assessment and plan (1) Dizziness: Patient with significant dizziness. Differential is very broad. Check orthostatic BP's. hold BP meds currently. Could potentially be CVA as patient noted some worsening weakness left side. Cannot do MRI with patient's PPM device. PT eval. Also has history of vertigo responding to Nery maneuver. Check Echo Check carotid US Interrogate PPM device. Reduce Flomax to once daily. Tele Check TSH (2) Acute urinary retention: Continue Cutler Check urinalysis Flomax once daily (3) History of CVA (cerebrovascular accident): Tele Continue ASA Carotid US, echo Plan CKD Stable. Avoid renal toxic medication. History of TAVR Multiple other medical problems as outlined in HPI Full code Lovenox for DVT prophylaxis. Attestations 2 Medical Necessity Statement*: Will need less than 2 midnight stay for evaluation and treatment of dizziness Coding Level of Care Code Acute Code for [facility] Fwd Diagnoses Dizziness R42 Acute urinary retention R33.8 History of CVA (cerebrovascular accident) Z86.73
[2023-06-21 13:06] LABS: Troponin 5 2HR Delta -2.75 ABS# (0-10)
--- NOTE | 2023-06-21 13:25 | PC.NURSE ---
Patient has a [employer] pacemaker, I interrogated his pacemaker and I am now waiting to hear back from [employer] regarding the results.
[2023-06-21 13:38] LABS: Thyroid Stimulating Hormone 2.54 uIU/mL (0.27-4.20)
--- NOTE | 2023-06-21 14:25 | USCV_ITS ---
Surface, Eliza Age: 82 Gender: M : 1940 Exam Date: 06/21/2023 15:23 Ordering Phys: rDew Roe MD Technologist: CT Exam Location: [facility] [place]_ Indication: tavr BP: 140 / 80 HR: 62 Rhythm: Sinus Technical Quality: Adequate MEASUREMENTS (Male / Female) Normal Values 2D ECHO LVOT Diameter 2.4 cm LV Ejection Fraction MOD 2C 51.9 % LV Ejection Fraction 2C AL 52.0 % LA Diameter 4.3 cm RA Systolic Volume 4C AL 63.9 ml RA Systolic Volume 4C MOD 60.2 ml LA Sys Volume AL 90.5 cm cubed LA Sys Volume Index AL 44.1 cm cubed/m squared Aorta at Sinotubular Diameter 2.7 cm DOPPLER AV Peak Velocity 243.0 cm/s LVOT Peak Velocity 167.0 cm/s AV Area Cont Eq vti 2.5 cm squared AV Area Cont Eq pk 3.0 cm squared MV Area PHT 2.9 cm squared Mitral E to A Ratio 0.7 TV Peak Velocity 133.5 cm/s TR Peak Velocity 179.0 cm/s TR Peak Gradient 12.8 mmHg Right Atrial Pressure 3.0 mmHg Pulmonary Artery Systolic Pressu 15.8 mmHg PV Peak Velocity 152.5 cm/s FINDINGS Left Ventricle Moderate concentric left ventricular hypertrophy. Diffuse hypokinesia of the left ventricle. Ejection fraction around 35-40%, visual Right Ventricle Pacemaker/defibrillator wire in the right ventricle Right Atrium Possibly of normal size Left Atrium Mildly increased left atrial size. Mitral Valve Thickened mitral valve. Mild-moderate mitral valve regurgitation. Aortic Valve The bioprosthetic valve the aortic position appears to be well- seated. The leaflets appears to be normal The peak velocity across the valve is 2.3 m/s with a peak gradient of 22 and a mean gradient of 8 mmHg Tricuspid Valve No gross abnormalities noted Pulmonic Valve Pulmonic valve not well visualized. Pericardium Normal pericardium without effusion. Aorta Normal ascending aorta dimension. IVC Inferior vena cava not visualized. CONCLUSIONS Moderate concentric left ventricular hypertrophy. Diffuse hypokinesia of the left ventricle. Ejection fraction around 35-40%, (visual.) Mildly increased left atrial size. The bioprosthetic valve the aortic position appears to be well- seated. The leaflets appears to be normal The peak velocity across the valve is 2.3 m/s with a peak gradient of 22 and a mean gradient of 8 mmHg. Thickened mitral valve. Mild-moderate mitral valve regurgitation. There is no pericardial effusion. Compared to the study from 12/21/2021, there is a drop in the LV ejection fraction Dr Troy Evans MD [facility] (Electronically Signed) Final Date: 21 June 2023 21:21 S
--- NOTE | 2023-06-21 14:25 | USR_ITS ---
PROCEDURE INFORMATION: Exam: US Duplex Bilateral Extracranial Arteries; Complete; Carotid Arteries Exam date and time: 06/21/2023 4:31 PM Age: 82 years old Clinical indication: Screening exam TECHNIQUE: Imaging protocol: Real-time duplex ultrasound scan of the bilateral extracranial arteries combining schaefer scale, color Doppler and spectral waveform analysis with image documentation. Complete exam. Exam focused on the carotid arteries. COMPARISON: CT angio headneck* [id number] 12/21/2021 3:05 AM FINDINGS: Right common carotid artery: Unremarkable. No occlusion or stenosis. Waveforms are normal. Right internal carotid artery: Unremarkable. No occlusion or stenosis. Waveforms are normal. Right ICA/CCA ratio: 1.2. Within normal limits. Right external carotid artery: No stenosis in the origin. Right vertebral artery: Not visualized. Left common carotid artery: Unremarkable. No occlusion or stenosis. Waveforms are normal. Left internal carotid artery: Unremarkable. No occlusion or stenosis. Waveforms are normal. Left ICA/CCA ratio: 0.7. Within normal limits. Left external carotid artery: No stenosis in the origin. Left vertebral artery: Unremarkable. Antegrade flow. Other findings: Bilateral scattered areas of plaque formation are seen in both common carotid and internal carotid arteries. US/CV carotid duplex BI* [id number] IMPRESSION: 1. No hemodynamically significant carotid arterial stenosis. 2. The right vertebral artery could not be visualized. REFERENCES: SRU CRITERIA. The degree of internal carotid artery stenosis is based on criteria defined by the Society of Radiologists in Ultrasound (SRU). Normal is no stenosis. Mild is less than 50% stenosis. Moderate is 50-69% stenosis. Severe is greater than 69% stenosis to near occlusion. Near occlusion is a markedly narrowed lumen. Total occlusion is no detectable patent lumen.
[2023-06-21] MEDS: enoxaparin 40 mg/0.4 mL Syringe SUBCUT (14:44)
[2023-06-21] MEDS: sodium chloride 0.9% 1,000 ML 75 ML IV (14:47)
--- NOTE | 2023-06-21 16:11 | ECG_ITS ---
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 Measurements Intervals [place] Rate: 67 P: 133 [place]: 162 QRS: -75 QRSD: 176 T: 137 QT: 480 QTc: 507 Interpretive Statements ELECTRONIC ATRIAL PACEMAKER ELECTRONIC VENTRICULAR PACEMAKER Compared to ECG 06/21/2023 10:21:27 No significant changes Electronically Signed On 06-21-2023 17:04:23 CDT by Russell Herzog M.D. [id number]
[2023-06-21 16:29] LABS: Troponin 5 6HR 30.89 ng/L (0-15)
[2023-06-21 16:30] LABS: Troponin 5 6HR Delta -3.11 ng/L (0-12)
[2023-06-21] MEDS: carvedilol 12.5 mg Tablet PO (17:30)
[2023-06-21] MEDS: famotidine 20 mg Tablet PO (21:34)
[2023-06-21] MEDS: tamsulosin 0.4 mg Capsule 0.400000000000000022 MG PO (21:34)
[2023-06-22] VITALS (13 sets, daily range): BP systolic 114–151; BP diastolic 59–84; PULSE 51–69; RESP 17–20; TEMP 36.4–36.7; O2SAT 94–97
[2023-06-22] MEDS: sodium chloride 0.9% 1,000 ML 75 ML IV (03:28)
[2023-06-22 05:00] LABS: Basophils # 0.1 10^3/uL (0.0-0.1); Basophils % 1.4 %; Eosinophils # 0.5 10^3/uL (0.0-0.8); Eosinophils % 12.2 %; Hematocrit 42.8 % (37-53); Lymphocytes # 0.4 10^3/uL (0.8-4.8); Lymphocytes % 9.6 %; Mean Corpuscular Hemoglobin 32.5 pg (27-33); Mean Corpuscular Volume 92.8 fl (82-101); Mean Platelet Volume 10.4 fL (7.4-10.4); Monocytes # 0.5 10^3/uL (0.2-0.9); Monocytes % 11.3 %; Neutrophils # 2.65 10^3/uL (1.8-7.7); Neutrophils % 62.4 %; Nucleated Red Blood Cells % 0.7 %; Platelet Count 113 10^3/cmm (157-399); Red Blood Count 4.61 10^6/uL (3.85-5.65); Red Cell Distribution Width 11.9 % (12.1-15.1); White Blood Count 4.25 10^3/uL (3.29-11.43)
[2023-06-22 05:12] LABS: Alanine Aminotransferase 8 U/L (0-41); Albumin Level 3.6 g/dL (3.5-5.2); Alkaline Phosphatase 100 U/L (40-130); Anion Gap 13.8 (5-19); Aspartate Amino Transferase 13 U/L (0-40); Blood Urea Nitrogen 18 mg/dL (8-23); Calcium 8.9 mg/dL (8.5-10.5); Carbon Dioxide 22 mmol/L (22-29); Chloride 109 mmol/L (98-107); Creatinine Clr Calc Pharmacy 57.6402; Globulin 2.9 g/dL (1.3-4.6); Glucose 85 mg/dL (65-115); Osmolality Calculated 293 mOsm/kg (285-295); Potassium 3.8 mmol/L (3.5-5.1); Sodium 141 mmol/L (136-145); Total Bilirubin 0.4 mg/dL (0.15-1.2); Total Protein 6.5 g/dL (6.6-8.7)
[2023-06-22] MEDS: aspirin 81 mg Chew Tablet PO (06:04)
[2023-06-22] MEDS: levothyroxine 50 mcg Tablet PO (06:04)
--- NOTE | 2023-06-22 08:03 | ECG_ITS ---
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 Measurements Intervals [place] Rate: 66 P: 131 MT: 210 QRS: 197 QRSD: 142 T: -67 QT: 479 QTc: 503 Interpretive Statements Predominantly AV paced rhythm with occasional PVC ABNORMAL RHYTHM ECG Compared to ECG 06/21/2023 16:11:28 No significant changes Electronically Signed On 06-22-2023 13:43:48 CDT by Troy Evans M.D. [id number]
[2023-06-22 08:45] LABS: Troponin(5th) Baseline 29 ng/L (0-15)
[2023-06-22 08:54] LABS: Creatine Phosphokinase 67 U/L (39-308); NT Pro B Type Natriuretic Pept 1499 pg/mL (0-450)
[2023-06-22] MEDS: isosorbide mononitrate ER 30 mg Tablet PO (09:03)
[2023-06-22] MEDS: carvedilol 12.5 mg Tablet PO ×2 (09:03→17:16)
--- NOTE | 2023-06-22 09:43 | CTR_ITS ---
PROCEDURE INFORMATION: Exam: CTA Head With Contrast, Arteriography Exam date and time: 06/22/2023 11:00 AM Age: 82 years old Clinical indication: Dizziness and giddiness; Additional info: Dizzyness, history of carotid disease TECHNIQUE: Imaging protocol: Computed tomographic angiography of the head with contrast. Exam focused on the arteries. 3D rendering (Not supervised by radiologist): MIP and/or 3D reconstructed images were created by the technologist. Radiation optimization: All CT scans at this facility use at least one of these dose optimization techniques: automated exposure control; mA and/or kV adjustment per patient size (includes targeted exams where dose is matched to clinical indication); or iterative reconstruction. Contrast material: OMNI 350; Contrast volume: 100 ml; Contrast route: INTRAVENOUS (IV); COMPARISON: CT angio headneck* [id number] 12/21/2021 3:05 AM RADIATION DOSE METRICS: Total DLP (mGy-cm): 1166.2 FINDINGS: ANTERIOR CIRCULATION: Right internal carotid artery: Intracranial segment is patent with no significant stenosis. No aneurysm. Right middle cerebral artery: No occlusion or significant stenosis. No aneurysm. Right anterior cerebral artery: No occlusion or significant stenosis. No aneurysm. 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 Left internal carotid artery: There is fusiform aneurysm of the cavernous segment of the left internal carotid artery measuring up to 7 x 8 mm. Left middle cerebral artery: There is a 2 mm saccular aneurysm along the inferior aspect of the distal most left middle cerebral artery M1 segment. Left anterior cerebral artery: No occlusion or significant stenosis. No aneurysm. POSTERIOR CIRCULATION: Right vertebral artery: There is diminishing enhancement of the distal right vertebral artery which Crocker out just above the skull base. The right vertebral artery terminates in the right posteroinferior cerebellar artery. It is noted that these findings are not significantly changed from the prior CT angiogram. Left vertebral artery: No occlusion or significant stenosis. No aneurysm. Basilar artery: No occlusion or significant stenosis. No aneurysm. Right posterior cerebral artery: No occlusion or significant stenosis. No aneurysm. Left posterior cerebral artery: There is focal atheromatous narrowing at the origin of the P1 segment of the left posterior cerebral artery. 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 Brain: There is no mass effect, midline shift, acute hemorrhage, extra-axial fluid collection or acute lobar infarct. There is fairly extensive hemispheric white matter hypodensity likely representing chronic microvascular ischemic change. Cerebral ventricles: No ventriculomegaly. Orbital cavities: The patient is post bilateral cataract surgery. Bones/joints: Cervical spondylosis is noted. Soft tissues: Unremarkable. PROCEDURE INFORMATION: Exam: CTA Neck With Contrast Exam date and time: 06/22/2023 11:00 AM Age: 82 years old Clinical indication: Dizziness and giddiness; Additional info: Dizzyness, history of carotid disease TECHNIQUE: Imaging protocol: Computed tomographic angiography of the neck with contrast. Exam focused on the cervical segments of the vasculature. 3D rendering (Not supervised by radiologist): MIP and/or 3D reconstructed images were created by the technologist. Radiation optimization: All CT scans at this facility use at least one of these dose optimization techniques: automated exposure control; mA and/or kV adjustment per patient size (includes targeted exams where dose is matched to clinical indication); or iterative reconstruction. Contrast material: OMNI 350; Contrast volume: 100 ml; Contrast route: INTRAVENOUS (IV); COMPARISON: CT angio headneck* [id number] 12/21/2021 3:05 AM RADIATION DOSE METRICS: Total DLP (mGy-cm): 1166.2 FINDINGS: Right common carotid artery: There is eccentric thrombus, plaque or chronic dissection along the lateral aspect of the right common carotid artery without significant change from the prior study. There is soft and calcific plaque noted at the right carotid bulb extending into the internal carotid artery. Right internal carotid artery: Soft atheromatous plaque causes narrowing of the proximal right internal carotid artery with a minimum luminal dimension of 2.7 mm compared with a distal internal carotid artery measurement of 5.9 mm corresponding to a 54% stenosis. Right external carotid artery: No occlusion or stenosis of the origin. Left common carotid artery: Mild atheromatous plaque is noted in the left common carotid artery without significant stenosis. Left internal carotid artery: No stenosis of the extracranial segment. No dissection or occlusion. Left external carotid artery: No occlusion or stenosis of the origin. Right vertebral artery: No stenosis. No dissection or occlusion. Left vertebral artery: No stenosis. No dissection or occlusion. Aorta: A ductus diverticulum is noted. Lymph nodes: Aortopulmonary window and paratracheal lymphadenopathy measuring up to 14 mm in maximum short axis dimension is noted. Soft tissues: Normal. No significant soft tissue swelling. Bones/joints: Cervical spondylosis is noted. The patient is post sternotomy. Lungs: There is a 4 mm calcified granuloma at the posterior right lung apex. Other findings: There is mild soft atheromatous plaque extending into the internal and external carotid arteries without significant stenosis. CT/CT angio headneck* [id number] IMPRESSION: No acute intracranial large vessel occlusion. 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 IMPRESSION: Atheromatous plaque noted in the carotid system bilaterally. 54% stenosis in the right internal carotid artery. No significant stenosis in the left internal carotid artery. Chronic atheromatous narrowing and poor enhancement of the distal most right vertebral artery above the skull base. Indeterminate mediastinal lymphadenopathy. Please correlate clinically. REFERENCES: NASCET CRITERIA. The degree of stenosis in the cervical segment of the internal carotid artery is based on NASCET criteria. Normal is no stenosis. Mild is less than 50% stenosis. Moderate is 50-69% stenosis. Severe is 70% to 99% stenosis. Total occlusion is no detectable patent lumen.
--- NOTE | 2023-06-22 10:03 | ECG_ITS ---
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 Measurements Intervals [place] Rate: 61 P: 114 DE: 171 QRS: -76 QRSD: 155 T: 148 QT: 468 QTc: 475 Interpretive Statements AV paced rhythm with occasional PVCs ABNORMAL RHYTHM ECG Compared to ECG 06/22/2023 08:33:50 No significant changes Electronically Signed On 06-22-2023 13:47:09 CDT by Troy Evans M.D. [id number]
[2023-06-22 10:14] LABS: Ferritin 232 ng/mL (30-400); Iron 60 ug/dL (59-158); Percent Saturation 31.4 % (20-50); Total Iron Binding Capacity 191 mcg/dl; Unsaturated Iron Binding 131 ug/dL (112-347)
[2023-06-22] MEDS: iohexol 350 mg/mL 500 mL Btl (per mL) IV (11:06)
[2023-06-22 11:21] LABS: Troponin 5 2HR 30.64 ng/L (0-15); Troponin 5 2HR Delta 1.64 ABS# (0-10)
[2023-06-22] MEDS: enoxaparin 40 mg/0.4 mL Syringe SUBCUT (13:26)
--- NOTE | 2023-06-22 13:38 | P.PN_ITS ---
Subjective 2 Subjective: Patient was seen this morning he is alert oriented x 3, following all commands, he continues To complain of dizziness, dizziness sometimes this is associate with head position sometimes is associated with changing position, denies any chest pain, denies any palpitations, he tells me that he sees Dr. Gates for his carotid arteries, no facial droop no slurring of his words he does have mild left-sided weakness but he has a history of a stroke, he does feel unsteady on his feet, I discussed his echocardiogram findings EF is diminished at 35 to 40% he denies any chest pain, no palpitations does report increased shortness of breath with exertion he does report history of CAD status post CABG, he had 2 stents, we discussed his positive orthostatic vitals will continue to monitor him closely, Vitals/I&O/Wt Last Vital Signs Temp 97.5 F L 06/22/23 12:19 Pulse 58 L 06/22/23 12:19 Resp 18 06/22/23 12:19 BP 134/73 06/22/23 12:19 Pulse Ox 97 06/22/23 12:19 O2 Del Method Room Air 06/22/23 12:19 06/21/23 06/22/23 06/22/23 22:59 06:59 14:59 Intake Total 480 / 480 1071.25 / 1551.25 600 / 600 Output Total 800 / 800 600 / 1400 700 / 700 Balance -320 / -320 471.25 / 151.25 -100 / -100 Weight last 48 hrs Weight 83.824 kg Weight 81.647 kg Physical Exam 2 Urinary Catheter Management: Cutler: Cath Placed During This Visit: no Reason for Continuing Indwelling Catheter: Acute Urinary Retention or Obstruction Data 06/22/23 04:39 06/22/23 04:39 A&P Assessment and plan (1) Dizziness: (2) Acute urinary retention: Continue Cutler Check urinalysis Flomax once daily (3) History of CVA (cerebrovascular accident): Tele Continue ASA Carotid US, echo (4) Decreased cardiac ejection fraction: (5) Systolic congestive heart failure: Qualifiers: Heart failure chronicity: chronic Qualified Code(s): I50.22 - Chronic systolic (congestive) heart failure (6) History of coronary artery bypass graft: (7) Status post transcatheter aortic valve replacement (TAVR) using bioprosthesis: (8) CAD (coronary artery disease): Qualifiers: Coronary Disease-Associated Artery/Lesion type: bypass graft [place] vs. transplanted heart: [place] heart Associated angina: without angina Qualified Code(s): I25.810 - Atherosclerosis of coronary artery bypass graft(s) without angina pectoris (9) Cardiac 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: (10) Thoracic aortic aneurysm: Qualifiers: Presence of rupture: without rupture Qualified Code(s): I71.2 - Thoracic aortic aneurysm, without rupture (11) Unilateral carotid artery disease: (12) Vasovagal syncope: (13) Dyslipidemia: (14) Acquired hypothyroidism: (15) Chronic kidney disease: Qualifiers: Chronic kidney disease stage: stage 2 (mild) Qualified Code(s): N18.2 - Chronic kidney disease, stage 2 (mild) (16) Benign positional vertigo: (17) Orthostatic hypotension: (18) Shortness of breath: Plan Dizziness ? Etiology multifactorial ? He does have positive orthostatic vitals, was on fluids at 100 cc, due to risk of CHF exacerbation have decreased to 30 cc monitor ? He is dill Hallpike maneuver was positive on the left possible component of benign positional vertigo and he reports a prior history of benign positional vertigo ? He does report a history of carotid artery disease history of CVA ? Ordered a CT angiogram of the head and neck ? His EF is diminished at 35 to 40% which is new, no chest pain but a history of CAD history of CABG ? Plan ? Gentle IV hydration at 30 cc an hour ? Telemetry monitoring ? Monitor for chest pain ? Troponin series ? Will likely order stress testing on Saturday ? Can consider Nery maneuver based on clinical progress ? Full code ? Lovenox for DVT prophylaxis Orthostatic hypotension as above Benign positional vertigo as above Diminished ejection fraction, new onset systolic CHF ? With history of CABG -With a history of CAD CONCLUSIONS Moderate concentric left ventricular hypertrophy. Diffuse hypokinesia of the left ventricle. Ejection fraction around 35-40%, (visual.) Mildly increased left atrial size. The bioprosthetic valve the aortic position appears to be well- seated. The leaflets appears to be normal The peak velocity across the valve is 2.3 m/s with a peak gradient of 22 and a mean gradient of 8 mmHg. Thickened mitral valve. Mild-moderate mitral valve regurgitation. There is no pericardial effusion. Compared to the study from 12/21/2021, there is a drop in the LV ejection fraction ? Plan, ? Continue aspirin?continue beta-jake ? Will likely order stress testing on Saturday History of TAVR, Moderate LVH History of CKD Complaints of shortness of breath, weakness, fatigue, next?likely multifactorial, ? Check TSH, check iron levels, ? Potentially patient is diminished ejection fraction playing a role Plan for today reviewed prior physicians workup reviewed prior blood work reviewed prior medical records, from cardiology, from Dr. Gates, reviewed prior physicians notes, ordered a CT angiogram head and neck, ordered iron studies, troponin studies, BnP, discussed with patient about proceeding with stress testing on Saturday based on clinical progress, PT OT, discussed decreasing fluids to 30 cc given his elevated BNP risk of heart failure exacerbation, continue telemetry monitoring, orthostats positive, continue gentle IV hydration, history of TAVR, performed dill Hallpike maneuver, mildly positive on the left, spoke to patient, spoke to nursing staff Attestations 2 Medical Necessity Statement*: Patient requires hospitalization for persistent dizziness, shortness of breath fatigue, concerns for diminished ejection fraction on echocardiogram, benign patient vertigo orthostatic hypotension, systolic CHF, concerns for carotid artery disease Diagnoses Dizziness R42 Acute urinary retention R33.8 History of CVA (cerebrovascular accident) Z86.73 Decreased cardiac ejection fraction R93.1 Chronic systolic congestive heart failure I50.22 Heart failure chronicity: chronic History of coronary artery bypass graft Z95.1 Status post transcatheter aortic valve replacement (TAVR) using bioprosthesis Z95.3 Coronary artery disease involving coronary bypass graft of [place] heart without angina pectoris I25.810 Coronary Disease-Associated Artery/Lesion type: bypass graft [place] vs. transplanted heart: [place] heart Associated angina: without angina Cardiac 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 Z95.810 Thoracic aortic aneurysm without rupture I71.2 Presence of rupture: without rupture Unilateral carotid artery disease I77.9 Vasovagal syncope R55 Dyslipidemia E78.5 Acquired hypothyroidism E03.9 Stage 2 chronic kidney disease N18.2 Chronic kidney disease stage: stage 2 (mild) Benign positional vertigo H81.10 Orthostatic hypotension I95.1 Shortness of breath R06.02
--- NOTE | 2023-06-22 14:03 | ECG_ITS ---
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 Measurements Intervals [place] Rate: 65 P: 124 [place]: 162 QRS: -84 QRSD: 159 T: 179 QT: 464 QTc: 486 Interpretive Statements ELECTRONIC ATRIAL PACEMAKER ELECTRONIC VENTRICULAR PACEMAKER ABNORMAL RHYTHM ECG Compared to ECG 06/22/2023 09:57:57 No significant changes Electronically Signed On 06-22-2023 13:48:14 CDT by Troy Evans M.D. [id number]
[2023-06-22] MEDS: sodium chloride 0.9% 1,000 ML 30 ML IV (14:50)
[2023-06-22 15:11] LABS: Troponin 5 6HR 29.22 ng/L (0-15); Troponin 5 6HR Delta 0.22 ng/L (0-12)
[2023-06-22] MEDS: famotidine 20 mg Tablet PO (19:38)
[2023-06-22] MEDS: tamsulosin 0.4 mg Capsule 0.400000000000000022 MG PO (19:38)
[2023-06-23] VITALS (10 sets, daily range): BP systolic 107–147; BP diastolic 65–84; PULSE 55–68; RESP 16–18; TEMP 36.4–36.8; O2SAT 94–97
[2023-06-23] MEDS: acetaminophen 325 mg Tablet 650 MG PO (03:31)
[2023-06-23 03:35] LABS: Basophils % 0.4 %; Eosinophils # 0.5 10^3/uL (0.0-0.8); Eosinophils % 8.7 %; Hematocrit 42.4 % (37-53); Lymphocytes # 0.9 10^3/uL (0.8-4.8); Mean Corpuscular HGB Conc 34.4 g/dL (30-55); Mean Corpuscular Hemoglobin 32.4 pg (27-33); Mean Platelet Volume 11.4 fL (7.4-10.4); Monocytes # 0.7 10^3/uL (0.2-0.9); Monocytes % 11.9 %; Neutrophils # 3.42 10^3/uL (1.8-7.7); Neutrophils % 61.6 %; Nucleated Red Blood Cells % 0 %; Platelet Count 121 10^3/cmm (157-399); Red Blood Count 4.51 10^6/uL (3.85-5.65); Red Cell Distribution Width 11.9 % (12.1-15.1); White Blood Count 5.54 10^3/uL (3.29-11.43)
[2023-06-23 03:54] LABS: Alanine Aminotransferase 8 U/L (0-41); Albumin Level 3.8 g/dL (3.5-5.2); Alkaline Phosphatase 98 U/L (40-130); Aspartate Amino Transferase 13 U/L (0-40); Blood Urea Nitrogen 22 mg/dL (8-23); Calcium 9.1 mg/dL (8.5-10.5); Carbon Dioxide 21 mmol/L (22-29); Chloride 109 mmol/L (98-107); Creatinine Clr Calc Pharmacy 48.5735; Globulin 2.4 g/dL (1.3-4.6); Glucose 90 mg/dL (65-115); Osmolality Calculated 297 mOsm/kg (285-295); Sodium 142 mmol/L (136-145); Total Bilirubin 0.3 mg/dL (0.15-1.2); Total Protein 6.2 g/dL (6.6-8.7)
[2023-06-23 04:00] LABS: NT Pro B Type Natriuretic Pept 1217 pg/mL (0-450)
[2023-06-23] MEDS: aspirin 81 mg Chew Tablet PO (06:07)
[2023-06-23] MEDS: levothyroxine 50 mcg Tablet PO (06:07)
--- NOTE | 2023-06-23 08:32 | ECG_ITS ---
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 Interpretive Statements NAME OF STUDY: LEXISCAN SESTAMIBI STRESS TEST INDICATION: Shortness of Breath; EF 35% PROCEDURE: At the baseline, the EKG revealed AV paced rhythm. Further interpretation is not possible. The baseline heart was 67 bpm with a blood pressue of 139/74 mm of Hg Lexiscan was infused over a period of 20 seconds. A total of 0.4 milligrams of Lexiscan was infused. The stress phase was continued for a total of 5 minutes. Heart rate at the end of the stress phase was 61 bpm with a blood pressure 76/57 mm of Hg. The EKG at the peak infusion revealed no significant changes. Patient was given IV aminophylline of 25 mg during the recovery phase. Was complaining of shortness of breath. Patient was found to have occasional PVCs during the Lexiscan infusion Sestamibi was injected 20 seconds after the Lexiscan infusion. Heart rate at the end of the recovery phase was 63 bpm with a blood pressure of 103/76 mm of Hg. CONCLUSION: 1. The EKG response to Lexiscan infusion is uninterpretable due to the pacing artifact 2. No LexiScan induced chest pain. Occasional PVCs are noted during the infusion 3. Normal blood pressure and heart rate response 4. Sestamibi/sestamibi perfusion scan pending; see separate report. Electronically Signed On 07-01-2023 9:33:12 CDT by Troy Evans M.D. [id number]
[2023-06-23] MEDS: carvedilol 12.5 mg Tablet PO ×2 (08:47→18:35)
[2023-06-23] MEDS: isosorbide mononitrate ER 30 mg Tablet PO (08:48)
--- NOTE | 2023-06-23 15:21 | P.PN_ITS ---
Subjective 2 Subjective: Patient was seen this morning, physical therapy at bedside, patient had Nery maneuver done yesterday, with improvement of his vertigo-like symptoms, continues to have episodes of dizziness with changing head position at times, physical therapy is helping with that he also reports dizziness with sitting up, his orthostats are positive his systolic drops more than 20 points we will have to monitor it he is on fluids currently at 30 cc an hour, we discussed weaning him off the needs this evening, due to risk of fluid overload with his diminished ejection fraction he does complain of shortness of breath no chest pain we discussed keeping him n.p.o. over midnight to do stress test tomorrow given his newly diminished ejection fraction down to 35%, he is agreeable, Vitals/I&O/Wt Last Vital Signs Temp 97.5 F L 06/23/23 12:00 Pulse 60 06/23/23 12:00 Resp 18 06/23/23 08:00 BP 117/77 06/23/23 12:00 Pulse Ox 97 06/23/23 11:52 O2 Del Method Room Air 06/23/23 08:00 06/23/23 06/23/23 06/23/23 06:59 14:59 22:59 Intake Total 240 / 2440 360 / 360 Output Total 1050 / 2900 Balance -810 / -460 360 / 360 Weight last 48 hrs Weight 83.007 kg Weight 83.824 kg Physical Exam 2 Const: COMMON NORMALS: no acute distress and patient oriented x3 Resp: COMMON NORMALS: normal respiratory effort, No retractions, No use of accessory muscles and clear to auscultation bilaterally AUSCULTATION: clear to auscultation bilaterally Cardio: COMMON NORMALS: regular rate, regular rhythm, S1 normal heart sound present and S2 normal heart sound present RATE: regular rate RHYTHM: r egular rhythm HEART SOUNDS: S1 normal heart sound present and S2 normal heart sound present GI: COMMON NORMALS: Normal to inspection, nondistended, normoactive bowel sounds present and non-tender Extremity: COMMON NORMALS: no pedal edema Neuro: COMMON NORMALS: patient oriented x3 Psych: COMMON NORMALS: mental status grossly normal Urinary Catheter Management: Cutler: Cath Placed During This Visit: no Reason for Continuing Indwelling Catheter: Acute Urinary Retention or Obstruction Data 06/23/23 02:40 06/23/23 02:40 A&P Assessment and plan (1) Dizziness: (2) Acute urinary retention: Continue Cutler Check urinalysis Flomax once daily (3) History of CVA (cerebrovascular accident): Tele Continue ASA Carotid US, echo (4) Decreased cardiac ejection fraction: (5) Systolic congestive heart failure: Qualifiers: Heart failure chronicity: chronic Qualified Code(s): I50.22 - Chronic systolic (congestive) heart failure (6) History of coronary artery bypass graft: (7) Status post transcatheter aortic valve replacement (TAVR) using bioprosthesis: (8) CAD (coronary artery disease): Qualifiers: Coronary Disease-Associated Artery/Lesion type: bypass graft [place] vs. transplanted heart: [place] heart Associated angina: without angina Qualified Code(s): I25.810 - Atherosclerosis of coronary artery bypass graft(s) without angina pectoris (9) Cardiac 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: (10) Thoracic aortic aneurysm: Qualifiers: Presence of rupture: without rupture Qualified Code(s): I71.2 - Thoracic aortic aneurysm, without rupture (11) Unilateral carotid artery disease: (12) Vasovagal syncope: (13) Dyslipidemia: (14) Acquired hypothyroidism: (15) Chronic kidney disease: Qualifiers: Chronic kidney disease stage: stage 2 (mild) Qualified Code(s): N18.2 - Chronic kidney disease, stage 2 (mild) (16) Benign positional vertigo: (17) Orthostatic hypotension: (18) Shortness of breath: Plan Dizziness ? Etiology multifactorial ? Systolic blood pressure still drops more than 20 continue fluids at 30 cc an hour discontinue the evening due to risk of CHF exacerbation ? He is dill Hallpike maneuver was positive on the left, symptomatology improved with Nery maneuver, likely component of benign positional vertigo continue PT OT maneuvers to help dislodge stone ? He does report a history of carotid artery disease history of CVA ? Ordered a CT angiogram of the head and neck IMPRESSION: Atheromatous plaque noted in the carotid system bilaterally. 54% stenosis in the right internal carotid artery. No significant stenosis in the left internal carotid artery. Chronic atheromatous narrowing and poor enhancement of the distal most right vertebral artery above the skull base. Indeterminate mediastinal lymphadenopathy. Please correlate clinically. ? His EF is diminished at 35 to 40% which is new, no chest pain but a history of CAD history of CABG ? Plan ? Gentle IV hydration at 30 cc an hour ? Telemetry monitoring ? Monitor for chest pain ? Troponin series ? Will likely order stress testing on Saturday ? Can consider Nery maneuver based on clinical progress ? Full code ? Lovenox for DVT prophylaxis Orthostatic hypotension as above Benign positional vertigo as above Diminished ejection fraction, new onset systolic CHF ? With history of CABG -With a history of CAD CONCLUSIONS Moderate concentric left ventricular hypertrophy. Diffuse hypokinesia of the left ventricle. Ejection fraction around 35-40%, (visual.) Mildly increased left atrial size. The bioprosthetic valve the aortic position appears to be well- seated. The leaflets appears to be normal The peak velocity across the valve is 2.3 m/s with a peak gradient of 22 and a mean gradient of 8 mmHg. Thickened mitral valve. Mild-moderate mitral valve regurgitation. There is no pericardial effusion. Compared to the study from 12/21/2021, there is a drop in the LV ejection fraction ? Plan, ? Continue aspirin?continue beta-jake ? Will likely order stress testing on Saturday History of TAVR, Moderate LVH History of CKD Complaints of shortness of breath, weakness, fatigue, next?likely multifactorial, ? Check TSH, check iron levels, ? Potentially patient is diminished ejection fraction playing a role Mediastinal lymphadenopathy on CAT scan, follow-up with pulmonary or oncology continue maneuvers to help dislodge stone, IV fluids given positive orthostats this morning/fluid overload n.p.o. midnight for tress test tomorrow, likely discharge tomorrow Attestations 2 Medical Necessity Statement*: Patient requires hospitalization for orthostatic hypotension, benign positional vertigo, diminished ejection fraction with shortness of breath requiring stress testing Diagnoses Dizziness R42 Acute urinary retention R33.8 History of CVA (cerebrovascular accident) Z86.73 Decreased cardiac ejection fraction R93.1 Chronic systolic congestive heart failure I50.22 Heart failure chronicity: chronic History of coronary artery bypass graft Z95.1 Status post transcatheter aortic valve replacement (TAVR) using bioprosthesis Z95.3 Coronary artery disease involving coronary bypass graft of [place] heart without angina pectoris I25.810 Coronary Disease-Associated Artery/Lesion type: bypass graft [place] vs. transplanted heart: [place] heart Associated angina: without angina Cardiac 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 Z95.810 Thoracic aortic aneurysm without rupture I71.2 Presence of rupture: without rupture Unilateral carotid artery disease I77.9 Vasovagal syncope R55 Dyslipidemia E78.5 Acquired hypothyroidism E03.9 Stage 2 chronic kidney disease N18.2 Chronic kidney disease stage: stage 2 (mild) Benign positional vertigo H81.10 Orthostatic hypotension I95.1 Shortness of breath R06.02
[2023-06-23] MEDS: enoxaparin 40 mg/0.4 mL Syringe SUBCUT (16:35)
[2023-06-23] MEDS: famotidine 20 mg Tablet PO (20:10)
[2023-06-23] MEDS: tamsulosin 0.4 mg Capsule 0.400000000000000022 MG PO (20:11)
[2023-06-24] VITALS (8 sets, daily range): BP systolic 100–145; BP diastolic 62–85; PULSE 60–75; RESP 18–20; TEMP 36.3–36.8; O2SAT 95–97
[2023-06-24 04:39] LABS: Basophils % 0.5 %; Eosinophils # 0.5 10^3/uL (0.0-0.8); Eosinophils % 8.7 %; Hematocrit 40.5 % (37-53); Lymphocytes % 18.1 %; Mean Corpuscular HGB Conc 35.6 g/dL (30-55); Mean Corpuscular Hemoglobin 33.4 pg (27-33); Mean Platelet Volume 11.3 fL (7.4-10.4); Monocytes # 0.7 10^3/uL (0.2-0.9); Monocytes % 12.2 %; Neutrophils % 60.1 %; Nucleated Red Blood Cells % 0 %; Platelet Count 111 10^3/cmm (157-399); Red Blood Count 4.31 10^6/uL (3.85-5.65); White Blood Count 5.65 10^3/uL (3.29-11.43)
[2023-06-24 04:56] LABS: Alanine Aminotransferase 8 U/L (0-41); Albumin Level 3.8 g/dL (3.5-5.2); Alkaline Phosphatase 93 U/L (40-130); Aspartate Amino Transferase 16 U/L (0-40); Blood Urea Nitrogen 23 mg/dL (8-23); Calcium 9.1 mg/dL (8.5-10.5); Carbon Dioxide 21 mmol/L (22-29); Chloride 111 mmol/L (98-107); Globulin 2.4 g/dL (1.3-4.6); Glucose 87 mg/dL (65-115); Osmolality Calculated 293 mOsm/kg (285-295); Sodium 140 mmol/L (136-145); Total Bilirubin 0.3 mg/dL (0.15-1.2); Total Protein 6.2 g/dL (6.6-8.7)
[2023-06-24 04:58] LABS: Anion Gap 12.3 (5-19); Potassium 4.3 mmol/L (3.5-5.1)
[2023-06-24 05:01] LABS: NT Pro B Type Natriuretic Pept 1215 pg/mL (0-450)
[2023-06-24] MEDS: aspirin 81 mg Chew Tablet PO (05:50)
[2023-06-24] MEDS: levothyroxine 50 mcg Tablet PO (05:50)
--- NOTE | 2023-06-24 06:51 | PC.NURSE ---
Pt left w/RN to go to stress test via w/c. Awaiting pt return to floor.
[2023-06-24] MEDS: regadenoson 0.4 Mg/5 ml Syringe 0.400000000000000022 MG IVP (07:23)
[2023-06-24] MEDS: aminophylline 25 mg/mL SDV 10 mL IVP (07:31)
--- NOTE | 2023-06-24 08:32 | NMCV_ITS ---
NM rodriguez perf SPECT r/s* [id number] Eliza Grimm Age: 82 Gender: M : 1940 Exam Date: 06/24/2023 06:29 Ordering Phys: Elio Marte MD Technologist: CLARK Nelson Exam Location: [facility] Indications: CHEST PAIN STRESS TEST [facility] IMAGE PROTOCOL Rest/Stress 1 Lexiscan Day Radiopharmaceutical Dose (mCi) Administration Site Administered by Rest: Tc-99m 10.9 IV CLARK Diaz Sestamibi Stress:Tc-99m 32.9 IV CLARK Diaz Sestamibi Rest: 24-Jun-2023 60 Discovery 630 Stress: 24-Jun-2023 30 Discovery 630 0.4mg Lexiscan. Images obtained in supine and prone position. SPECT RESULTS Technical Quality: Excellent Raw Data Analysis: Normal Image Corrections: No attenuation or motion correction applied Summed Stress Score: 21 Summed Rest Score: 28 Summed Difference Score: 0 PERFUSION FINDINGS Moderate to large area of moderate to severely decreased tracer uptake involving the inferior, inferolateral, anterolateral and apical regions with very small area of reversibility in the apical anterior region , probably with the SPECT imaging. With the polar plot, no significant reversible defects were noted FUNCTIONAL RESULTS (calculated via Gated SPECT) Stress Image LV EF (%): 32 Stress EDV (mL):174 TID: 0.98 Stress ESV (mL):119 FUNCTIONAL FINDINGS: Segmental wall motion analysis revealed severe diffuse hypokinesia of the inferior wall, septum and the apex. Moderately dilated LV cavity IMPRESSIONS 1. Myocardial perfusion imaging revealing moderate to large area of persistent decreased tracer uptake involving the inferior, inferolateral, anterolateral and apical regions with a very small area of reversible defect in the apical anterior region, suggesting extensive myocardial scarring in the distribution of the right coronary artery/circumflex artery with a very small area of ischemia in the distribution of the distal left anterior descending artery. 2. Diminished LV ejection fraction of 32%. 3. Multiple wall motion abnormalities as mentioned above 4. Moderately dilated LV cavity with an end-systolic volume of 119 ml. No similar previous studies are available for comparison Dr Troy Evans MD [facility] (Electronically Signed) Final Date: 24 June 2023 12:20 S
[2023-06-24] MEDS: carvedilol 12.5 mg Tablet PO (08:34)
[2023-06-24] MEDS: isosorbide mononitrate ER 30 mg Tablet PO (08:34)
--- NOTE | 2023-06-24 10:58 | PC.CHAP ---
Pastoral Care Encounter/Spiritual Assessment Type of Contact [] Declined associate designer visit [] Patient/Family/Request visit [] Outpatient visit [] Follow-up visit [] Physician referral [] Code/Alert [x] Routine visit [] Staff referral [] Actively dying [] Patient sleeping [] Family support [] [] Out of room [] Palliative care [] [] Receiving care in room [] Pre-surgical visit [] Trauma [] Long length of stay [] ICU visit [] Other: Relational/Emotional Strength [] Patient feels connected with others/family/visitors/staff [] Distress [] Loneliness/isolation [] Abandonment Spirituality of Patient [x] Person of Irene [] Attends Mosque of their Irene [x] Believes in Prayer [] Reads Bible or Muslim materials [] There are Spiritual issues to be addressed Sailing Master Interventions [x] Prayer [x] Active listening [] Non-anxious presence [] Spiritual/emotional support [] Crisis/trauma care [] Spiritual counseling [] Bereavement support [] Provided bereavement packet [x] Provided Bible/devotional materials [] Provided toy/stuffed animal, coloring book to patient or family member [] Provided Communion [] Anointing/Nemo [] Salvation [x] Completed spiritual assessment [] Other: Impact on Illness or Injury [] Angry [] Fearful [] Anxious [] Often cries [] Exhaustion [] Unable to work [] Unable to attend taoism [] Unable to walk/stand [] Unable to read [] Unable to drive [] Unable to eat/drink [] Unable to sleep [] Unable to be with family [] Patient intubated [] Other: Summary Time spent with patient 5 min
--- NOTE | 2023-06-24 11:30 | PC.SOCIAL ---
Pg 2 IMM Explained to pt Pg 2 IMM. No questions voiced. Provided pt a copy. Initialed, dated, & timed a copy & placed in chart.
[2023-06-24] MEDS: enoxaparin 40 mg/0.4 mL Syringe SUBCUT (15:19)
--- NOTE | 2023-06-24 16:34 | P.CONIM_ITS ---
Providers/Reason For Consult 2 Consulting Physician/Specialty*: Russell Herzog MD/ Cardiology Reason for Consult*: LV dysfucntion/abnormal stress test Requesting Physician: Dr Marte Attending Physician: Elio Marte MD Primary Care Provider: Aicha Moran MD History of Present Illness History of Present Illness Eliza Grimm is a 82 year old male with past medical history of CAD status post CABG and prior stents, aortic valve disease s/p TAVR, ICD in place. Was admitted to hospital for dizziness and nausea. Dizziness and vertigo were positional. He had Nery's maneuver and says symptoms have improved significantly. His echo showed moderately reduced EF of 35 to 40%. Prior echo in our system shows significant decrease in LV function however he sees agitator operator in [place] and would his LV systolic function was moderate to severely reduced before as well. Bioprosthetic valve functioning appropriately. Stress test shows prior infarct in left circumflex artery and RCA territories with small area of ischemia in LAD territory. EKG shows paced rhythm. Troponin did not trend up significantly. He denies chest pain or shortness of breath. Review of Systems 2 General: Reports: 10 or more systems reviewed and unremarkable except in HPI and below Card: Denies: chest pain Resp: Denies: dyspnea GI: Reports: nausea; Denies: abdominal pain, vomiting, hematochezia or melena Medications/Allergies Home Medications Medication Instructions Recorded Confirmed Last Taken Type aspirin 81 mg chewable tablet 81 mg PO QAM #90 tabs 12/25/21 06/27/23 06/21/23 Rx Walking Cane 4 prong #1 ea 02/07/22 06/27/23 Unknown Rx docusate sodium 100 mg capsule 100 mg PO DAILY 01/10/23 06/27/23 06/21/23 History furosemide 20 mg tablet 20 mg PO .MON/SAT/SAT/SUN #90 tabs 04/02/23 06/27/23 06/21/23 Rx levothyroxine 50 mcg tablet 50 mcg PO QAM #90 tabs 04/24/23 06/27/23 06/21/23 Rx (Synthroid) famotidine 20 mg tablet 20 mg PO BEDTIME 06/19/23 06/27/23 06/20/23 History multivit with minerals-folic 1 cap PO DAILY 06/19/23 06/27/23 06/21/23 History acid-lycopene 0.4 mg-600 mcg capsule (Men's Daily) tamsulosin 0.4 mg capsule 0.4 mg PO BID #60 caps 06/19/23 06/27/23 06/21/23 Rx carvedilol 12.5 mg tablet 6.25 mg (1/2 x 12.5 mg) PO BID 06/24/23 06/27/23 06/21/23 Rx #180 tabs isosorbide mononitrate 30 mg 15 mg (1/2 x 30 mg) PO DAILY #90 06/24/23 06/27/23 06/21/23 Rx tablet,extended release 24 hr tabs Allergies Allergy/AdvReac Type Severity Reaction Status Date / Time rosuvastatin [From Crestor] Allergy Mild Makes me Verified 06/27/23 09:38 daria nitroglycerin Allergy Unknown Makes me Verified 06/27/23 09:38 wild amitriptyline AdvReac Made me Verified 06/27/23 09:38 weak and daria, wasn't thinking right rivaroxaban [From Xarelto] AdvReac black stool Verified 06/27/23 09:38 Current Medications Generic Name Dose Route Start Last Admin Trade Name Freq PRN Reason Stop Dose Admin Acetaminophen 650 mg 06/21/23 14:05 06/23/23 03:31 Acetaminophen 325 Mg Tablet PO 650 mg Q6H PRN Administration Mild/Mod Pain Or Temp >/= 101 Aminophylline 25 mg 06/24/23 06:50 06/24/23 07:31 Aminophylline 25 Mg/Ml Sdv 10 Ml IVP 06/25/23 06:49 25 mg Q2M PRN Administration see dose instructions Aspirin 81 mg 06/22/23 06:00 06/24/23 05:50 Aspirin 81 Mg Chew Tablet PO 81 mg QAM ESTER Administration Carvedilol 12.5 mg 06/21/23 18:00 06/24/23 08:34 Carvedilol 12.5 Mg Tablet PO 12.5 mg BID ESTER Administration Enoxaparin Sodium 40 mg 06/21/23 14:05 06/24/23 15:19 Enoxaparin 40 Mg/0.4 Ml Syringe SUBCUT 40 mg Q24H ESTER Administration Famotidine 20 mg 06/21/23 21:00 06/23/23 20:10 Famotidine 20 Mg Tablet PO 20 mg BEDTIME ESTER Administration Isosorbide Mononitrate 30 mg 06/22/23 09:00 06/24/23 08:34 Isosorbide Mononitrate Er 30 Mg Tablet PO 30 mg DAILY ESTER Administration Levothyroxine Sodium 50 mcg 06/22/23 06:00 06/24/23 05:50 Levothyroxine 50 Mcg Tablet PO 50 mcg QAM ESTER Administration Tamsulosin HCl 0.4 mg 06/21/23 21:00 06/23/23 20:11 Tamsulosin 0.4 Mg Capsule PO 0.4 mg BEDTIME ESTER Administration PFSH Acute 2 PFSH: Medical History Cardiac 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 Seborrheic keratoses Stroke Dizziness and giddiness Fatigue Dyslipidemia Diverticulosis Hiatal hernia History of pulmonary embolism History of Sindy-Kirk syndrome Chronic kidney disease Insomnia GERD (gastroesophageal reflux disease) Systolic congestive heart failure Thoracic aortic aneurysm CAD (coronary artery disease) Surgical History Status post transcatheter aortic valve replacement (TAVR) using bioprosthesis aortic stenosis History of drainage of abscess Percutaneous, right lower quadrant suspected appendiceal abscess History of cataract surgery Bilateral History of coronary artery stent placement Reports a total of 3 stents after her last CABG done in [facility] 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 History of cholecystectomy Family History Mother Diabetes Stroke Father Gallbladder disease Brother Chronic kidney disease (CKD) Diabetes Denies family history of CAD (coronary artery disease) Clotting disorder Dementia Suicide Anesthesia complication Bleeding disorder Lung disease Cancer Social History Smoking and tobacco/nicotine status: never used tobacco/nicotine Alcohol intake: never Substance/Drug Use: never Caregiver/support person: Yes Household members: spouse Vitals/I&O/Wt Last Vital Signs Temp 97.5 F L 06/24/23 12:00 Pulse 60 06/24/23 09:03 Resp 18 06/24/23 12:00 BP 145/84 06/24/23 09:03 Pulse Ox 96 06/24/23 12:00 O2 Del Method Room Air 06/24/23 12:00 06/24/23 06/24/23 06/24/23 06:59 14:59 22:59 Intake Total 480 / 960 1720 / 1720 Output Total 1100 / 2200 525 / 525 Balance -620 / -1240 1195 / 1195 Weight last 48 hrs Weight 185 lb 11.2 oz Weight 183 lb Physical Exam 2 Narrative: GENERAL: Patient is alert, awake and oriented x3. [] NECK: No jugular vein distension. [] HEENT: No cyanosis. No icterus. No pallor. [] HEART: Regular S1 and S2. No murmur, rub or gallop. [] LUNGS: Clear to auscultate bilaterally. [] CENTRAL NERVOUS SYSTEM: Grossly nonfocal. [] EXTREMITIES: Lower extremities with 1+ edema bilaterally. Urinary Catheter Management: Cutler: Cath Placed During This Visit: yes, but has since been removed by the nurse Reason for Continuing Indwelling Catheter: Decision to DC Catheter Date Urinary Catheter Removed: 06/24/23 Time Urinary Catheter Discontinued: 10:30 Data 06/24/23 04:10 06/24/23 04:10 A&P Assessment and plan (1) CAD (coronary artery disease): Qualifiers: Coronary Disease-Associated Artery/Lesion type: bypass graft [place] vs. transplanted heart: [place] heart Associated angina: without angina Qualified Code(s): I25.810 - Atherosclerosis of coronary artery bypass graft(s) without angina pectoris (2) Status post transcatheter aortic valve replacement (TAVR) using bioprosthesis: (3) Decreased cardiac ejection fraction: (4) Hypertension: Qualifiers: Hypertension type: primary hypertension Qualified Code(s): I10 - Essential (primary) hypertension Plan Patient has significant CAD history, aortic valve disease history, has ICD in place. ICD interrogation did not show any recent shocks. LV systolic function is moderate to moderately reduced however had similar EF last year as well. Follows with agitator operator in [place]. Stress test shows prior infarct with minimal area of ischemia in LAD territory. At this time we will continue with aggressive medical therapy. Continue Coreg, isosorbide and aspirin. Thank you for involving with care of this patient. We will continue to follow. Please call with questions. Consult Attestations 2 Medical Necessity Statement: Care expected to cross 2 midnights. Coding Level of Care Code Acute Code for Chg Fwd Diagnoses Coronary artery disease involving coronary bypass graft of [place] heart without angina pectoris I25.810 Coronary Disease-Associated Artery/Lesion type: bypass graft [place] vs. transplanted heart: [place] heart Associated angina: without angina Status post transcatheter aortic valve replacement (TAVR) using bioprosthesis Z95.3 Decreased cardiac ejection fraction R93.1 Primary hypertension I10 Hypertension type: primary hypertension
--- NOTE | 2023-06-24 16:36 | PM.PN ---
Subjective Subjective: Was seen this morning, no chest pain overnight, does report intermittent dizziness, we did discuss his positive orthostatic vitals this morning his systolic blood pressure does drop 20 points when standing up, I had to cut his dose of Coreg to 6.25 twice daily, and also cut his Imdur dose to 15 mg daily, we discussed following up with his stress test results and potentially discussing with cardiology, reviewed his [employer] pacemaker report, patient had 1 episode of nonsustained V. tach lasting 1 second, I reviewed his prior records, patient is on. Back in October last year his EF was noted to be 30 to 35%, he has never had an angiogram but recently he was updated to an ICD etiology unclear, will request records from [facility], I also spoke to cardiology about patient's positive stress test, and patient's complaints of shoulder as of breath will await Dr. Iglesias's recommendations,For orthostatic hypotension had a detailed discussion with patient about for orthostatic hypotension had a detailed discussion with patient about ambulating with care, transfer to comfort care I decreased his Coreg his Imdur have held his amlodipine to have him see primary care provider in 24 to 48 hours for recheck blood pressures, monitor for lightheadedness or dizziness if so come back to the hospital, spoke to Dr. Herzog, plan on medical management, Vitals/I&O/Wt Last Vital Signs Temp 97.5 F L 06/24/23 12:00 Pulse 60 06/24/23 09:03 Resp 18 06/24/23 12:00 BP 145/84 06/24/23 09:03 Pulse Ox 96 06/24/23 12:00 O2 Del Method Room Air 06/24/23 12:00 06/24/23 06/24/23 06/24/23 06:59 14:59 22:59 Intake Total 480 / 960 1720 / 1720 Output Total 1100 / 2200 525 / 525 Balance -620 / -1240 1195 / 1195 Weight last 48 hrs Weight 84.232 kg Weight 83.007 kg Physical Exam Const: COMMON NORMALS: no acute distress and patient oriented x3 Resp: COMMON NORMALS: normal respiratory effort, No retractions, No use of accessory muscles and clear to auscultation bilaterally AUSCULTATION: clear to auscultation bilaterally Cardio: COMMON NORMALS: regular rate, regular rhythm, S1 normal heart sound present and S2 normal heart sound present RATE: regular rate RHYTHM: regular rhythm HEART SOUNDS: S1 normal heart sound present and S2 normal heart sound present GI: COMMON NORMALS: Normal to inspection, nondistended, normoactive bowel sounds present and non-tender Extremity: COMMON NORMALS: no pedal edema Neuro: COMMON NORMALS: patient oriented x3 Psych: COMMON NORMALS: mental status grossly normal Urinary Catheter Management: Cutler: Cath Placed During This Visit: yes, but has since been removed by the nurse Reason for Continuing Indwelling Catheter: Decision to DC Catheter Date Urinary Catheter Removed: 06/24/23 Time Urinary Catheter Discontinued: 10:30 Data 06/24/23 04:10 06/24/23 04:10 A&P Assessment and plan (1) Dizziness: (2) Acute urinary retention: Continue Cutler Check urinalysis Flomax once daily (3) History of CVA (cerebrovascular accident): Tele Continue ASA Carotid US, echo (4) Decreased cardiac ejection fraction: (5) Systolic congestive heart failure: Qualifiers: Heart failure chronicity: chronic Qualified Code(s): I50.22 - Chronic systolic (congestive) heart failure (6) History of coronary artery bypass graft: (7) Status post transcatheter aortic valve replacement (TAVR) using bioprosthesis: (8) CAD (coronary artery disease): Qualifiers: Coronary Disease-Associated Artery/Lesion type: bypass graft [place] vs. transplanted heart: [place] Associated angina: without angina Qualified Code(s): I25.810 - Atherosclerosis of coronary artery bypass graft(s) without angina pectoris (9) Cardiac 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: (10) Thoracic aortic aneurysm: Qualifiers: Presence of rupture: without rupture Qualified Code(s): I71.2 - Thoracic aortic aneurysm, without rupture (11) Unilateral carotid artery disease: (12) Vasovagal syncope: (13) Dyslipidemia: (14) Acquired hypothyroidism: (15) Chronic kidney disease: Qualifiers: Chronic kidney disease stage: stage 2 (mild) Qualified Code(s): N18.2 - Chronic kidney disease, stage 2 (mild) (16) Benign positional vertigo: (17) Orthostatic hypotension: (18) Shortness of breath: Plan Dizziness ? Etiology multifactorial ? Systolic blood pressure still drops more than 20 polypharamcy,, doses of medications adjusted ? He is dill Hallpike maneuver was positive on the left, symptomatology improved with Nery maneuver, likely component of benign positional vertigo continue PT OT maneuvers to help dislodge stone ? He does report a history of carotid artery disease history of CVA ? Ordered a CT angiogram of the head and neck IMPRESSION: Atheromatous plaque noted in the carotid system bilaterally. 54% stenosis in the right internal carotid artery. No significant stenosis in the left internal carotid artery. Chronic atheromatous narrowing and poor enhancement of the distal most right vertebral artery above the skull base. Indeterminate mediastinal lymphadenopathy. Please correlate clinically. ? His EF is diminished at 35 to 40% which is new, no chest pain but a history of CAD history of CABG ? Plan ? Telemetry monitoring ? Monitor for chest pain -stresss tsest ? Can consider Nery maneuver based on clinical progress ? Full code ? Lovenox for DVT prophylaxis Orthostatic hypotension as above Benign positional vertigo as above Diminished ejection fraction, new onset systolic CHF ? With history of CABG -With a history of CAD CONCLUSIONS Moderate concentric left ventricular hypertrophy. Diffuse hypokinesia of the left ventricle. Ejection fraction around 35-40%, (visual.) Mildly increased left atrial size. The bioprosthetic valve the aortic position appears to be well- seated. The leaflets appears to be normal The peak velocity across the valve is 2.3 m/s with a peak gradient of 22 and a mean gradient of 8 mmHg. Thickened mitral valve. Mild-moderate mitral valve regurgitation. There is no pericardial effusion. Compared to the study from 12/21/2021, there is a drop in the LV ejection fraction ? Plan, ? Continue aspirin?continue beta-jake ? Will likely order stress testing on Saturday History of TAVR, Moderate LVH History of CKD Complaints of shortness of breath, weakness, fatigue, next?likely multifactorial, ? Check TSH, check iron levels, ? Potentially patient is diminished ejection fraction playing a role Mediastinal lymphadenopathy on CAT scan, follow-up with pulmonary or oncology Attestations Medical Necessity Statement*: will discharged today Diagnoses Dizziness R42 Acute urinary retention R33.8 History of CVA (cerebrovascular accident) Z86.73 Decreased cardiac ejection fraction R93.1 Chronic systolic congestive heart failure I50.22 Heart failure chronicity: chronic History of coronary artery bypass graft Z95.1 Status post transcatheter aortic valve replacement (TAVR) using bioprosthesis Z95.3 Coronary artery disease involving coronary bypass graft of [place] without angina pectoris I25.810 Coronary Disease-Associated Artery/Lesion type: bypass graft [place] vs. transplanted heart: [place] Associated angina: without angina Cardiac 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 Z95.810 Thoracic aortic aneurysm without rupture I71.2 Presence of rupture: without rupture Unilateral carotid artery disease I77.9 Vasovagal syncope R55 Dyslipidemia E78.5 Acquired hypothyroidism E03.9 Stage 2 chronic kidney disease N18.2 Chronic kidney disease stage: stage 2 (mild) Benign positional vertigo H81.10 Orthostatic hypotension I95.1 Shortness of breath R06.02
--- NOTE | 2023-06-24 17:02 | PC.NURSE ---
Patient was bladder scanned and had 221 ml in bladder. Provider was made aware and then ordered a new trammell to be placed.
--- NOTE | 2023-06-24 17:06 | PM.DCS ---
Discharge Providers Date of Admission: 06/22/23 14:34 Date of Discharge: June 24, 2023 Attending Provider at Admission: Drew Roe MD Attending Provider at Discharge: Elio Marte MD Primary Care Provider: Aicha Moran MD Diagnoses at Discharge Discharge Diagnosis (1) Dizziness: Status: Acute (2) Acute urinary retention: Status: Acute (3) History of CVA (cerebrovascular accident): Status: Acute (4) Decreased cardiac ejection fraction: Status: Acute (5) Systolic congestive heart failure: Status: Acute Qualifiers: Heart failure chronicity: chronic Qualified Code(s): I50.22 - Chronic systolic (congestive) heart failure (6) History of coronary artery bypass graft: Status: Acute Permanent problem details: 1997 in 2010 -- 3 vessels total (7) Status post transcatheter aortic valve replacement (TAVR) using bioprosthesis: Status: Acute Permanent problem details: aortic stenosis (8) CAD (coronary artery disease): Status: Acute Qualifiers: Coronary Disease-Associated Artery/Lesion type: bypass graft [place] vs. transplanted heart: [place] heart Associated angina: without angina Qualified Code(s): I25.810 - Atherosclerosis of coronary artery bypass graft(s) without angina pectoris (9) Cardiac 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: Status: Acute (10) Thoracic aortic aneurysm: Status: Acute Qualifiers: Presence of rupture: without rupture Qualified Code(s): I71.2 - Thoracic aortic aneurysm, without rupture (11) Unilateral carotid artery disease: Status: Acute (12) Vasovagal syncope: Status: Acute (13) Dyslipidemia: Status: Acute (14) Acquired hypothyroidism: Status: Acute (15) Chronic kidney disease: Status: Acute Qualifiers: Chronic kidney disease stage: stage 2 (mild) Qualified Code(s): N18.2 - Chronic kidney disease, stage 2 (mild) (16) Benign positional vertigo: Status: Acute (17) Orthostatic hypotension: Status: Acute (18) Shortness of breath: Status: Acute Reason for Visit Reason for Visit: dizzy Hospital Course Hospital Course Eliza Grimm is a 82 year old male initially presented to the emergency department on June 18 with some nausea. He was found to have significant urinary retention and a catheter was placed. He initially did better the next day. The following day upon going to the bathroom to empty his catheter he was nauseous again. He did not vomit. He reported he was dizzy like he was before, with the room spinning. This helps to close his eyes and lay down, but can occur with increased frequency with sitting, or moving his head. He has previously had some inner ear difficulties, but is also had a stroke. He believes the left side of his body, is a little bit more weak than his normal following his stroke. He denies any significant headache. He has had a slight cough but no fever. He denies any blood in his stool or black or tarry stools. He did not pass out with his dizziness this morning, instead just sliding down the bathroom wall with no loss of consciousness. No chest pain or shortness of breath. This is a 82-year-old male who presents [facility] for dizziness likely multifactorial from benign positional vertigo, orthostatic hypotension, For his benign positional vertigo did a Hallpike maneuver was positive on the left, symptomatology improved with Nery maneuver, had PT OT see him, discharged with instructions on Nery maneuver, follow-up with primary care Patient's hospitalization was complicated with orthostatic hypotension with complaints of dizziness, did receive IV fluids for over 48 hours without improvement of orthostatic hypotension likely polypharmacy, he is dose of Coreg was decreased to 6.25 twice daily Imdur to 15 mg p.o. daily and Norvasc was stopped. He continues to have some degree of orthostatic hypotension however asymptomatic, advised to ambulate with care advised him of his increased risk of falls, to change position with care, and if he continues to have lightheadedness and dizziness to come to the emergency room. I will have him follow-up with primary care provider within a week to recheck orthostatic vitals, recheck blood pressure Patient was also found to have indeterminate mediastinal lymphadenopathy, follow-up with oncology as outpatient Due to complaints of shortness of breath, no chest pain complaints, history of CABG, recent history of ICD placement, follows up with Dr. 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 tach lasting 1 second but was not shocked, patient was advised if he has any chest pain or worsening shortness of breath to go to emergency room Patient also had acute urinary retention requiring hospitalization and monitoring, he is on Flomax, failed voiding trial, Trammell catheter was replaced, discharged with Trammell catheter in place with follow-up with urology in 2 to 4 weeks for Trammell catheter removal, urodynamic testing cardiac echo CONCLUSIONS Moderate concentric left ventricular hypertrophy. Diffuse hypokinesia of the left ventricle. Ejection fraction around 35-40%, (visual.) Mildly increased left atrial size. The bioprosthetic valve the aortic position appears to be well- seated. The leaflets appears to be normal The peak velocity across the valve is 2.3 m/s with a peak gradient of 22 and a mean gradient of 8 mmHg. Thickened mitral valve. Mild-moderate mitral valve regurgitation. There is no pericardial effusion. Compared to the study from 12/21/2021, there is a drop in the LV ejection fraction stress test IMPRESSIONS 1. Myocardial perfusion imaging revealing moderate to large area of persistent decreased tracer uptake involving the inferior, inferolateral, anterolateral and apical regions with a very small area of reversible defect in the apical anterior region, suggesting extensive myocardial scarring in the distribution of the right coronary artery/circumflex artery with a very small area of ischemia in the distribution of the distal left anterior descending artery. 2. Diminished LV ejection fraction of 32%. 3. Multiple wall motion abnormalities as mentioned above 4. Moderately dilated LV cavity with an end-systolic volume of 119 ml. No similar previous studies are available for comparison Physical Exam Const: COMMON NORMALS: no acute distress and patient oriented x3 Resp: COMMON NORMALS: normal respiratory effort, No retractions, No use of accessory muscles and clear to auscultation bilaterally AUSCULTATION: clear to auscultation bilaterally Cardio: COMMON NORMALS: regular rate, regular rhythm, S1 normal heart sound present and S2 normal heart sound present RATE: regular rate RHYTHM: regular rhythm HEART SOUNDS: S1 normal heart sound present and S2 normal heart sound present GI: COMMON NORMALS: Normal to inspection, nondistended, normoactive bowel sounds present and non-tender Extremity: COMMON NORMALS: no pedal edema Neuro: COMMON NORMALS: patient oriented x3 Psych: COMMON NORMALS: mental status grossly normal Urinary Catheter Management: Trammell: Cath Placed During This Visit: yes, but has since been removed by the nurse Reason for Continuing Indwelling Catheter: Decision to DC Catheter Date Urinary Catheter Removed: 06/24/23 Time Urinary Catheter Discontinued: 10:30 Discharge Data Studies Completed and Pending Completed Studies During Hospitalization Category Date Time Status CT angio head neck [CT angio headneck* [id number]] Cat Scan 06/22/23 09:[address] head wo con* [id number] Stat Cat Scan 06/21/23 08:53 Completed Sestamibi Stress Test Request Routine Exams 06/23/23 08:32 Draft XR chest 1V portable [id number] Stat Exams 06/21/23 08:53 Completed NM rodriguez perf SPECT r/s* [id number] Routine Nuc Med 06/24/23 08:32 Completed CV carotid duplex BI* [id number] Routine Ultrasound 06/21/23 14:25 Completed CV. echo complete* [id number] Routine Ultrasound 06/21/23 14:25 Completed Pending at discharge Category Date Time Status Complete Blood Count w/Auto AM LABS Lab 06/25/23 04:00 Ordered Comprehensive Metabolic Panel AM LABS Lab 06/25/23 04:00 Ordered NT Pro B Type Natriuretic Pept QAM Lab 06/25/23 06:00 Ordered Occult Blood Stool [Immunochemical Fecal OCB] Routine Lab 06/22/23 09:45 Uncollected Radiology Impressions Carotid Doppler Study 06/21/23 14:25 IMPRESSION: 1. No hemodynamically significant carotid arterial stenosis. 2. The right vertebral artery could not be visualized. REFERENCES: SRU CRITERIA. The degree of internal carotid artery stenosis is based on criteria defined by the Society of Radiologists in Ultrasound (SRU). Normal is no stenosis. Mild is less than 50% stenosis. Moderate is 50-69% stenosis. Severe is greater than 69% stenosis to near occlusion. Near occlusion is a markedly narrowed lumen. Total occlusion is no detectable patent lumen. Head/Neck CTA 06/22/23 09:43 IMPRESSION: No acute intracranial large vessel occlusion. 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 IMPRESSION: Atheromatous plaque noted in the carotid system bilaterally. 54% stenosis in the right internal carotid artery. No significant stenosis in the left internal carotid artery. Chronic atheromatous narrowing and poor enhancement of the distal most right vertebral artery above the skull base. Indeterminate mediastinal lymphadenopathy. Please correlate clinically. REFERENCES: NASCET CRITERIA. The degree of stenosis in the cervical segment of the internal carotid artery is based on NASCET criteria. Normal is no stenosis. Mild is less than 50% stenosis. Moderate is 50-69% stenosis. Severe is 70% to 99% stenosis. Total occlusion is no detectable patent lumen. Laboratory Results WBC 5.65 10^3/uL (3.29-11.43) 06/24/23 04:10 Corrected WBC Cancelled 06/22/23 02:47 RBC 4.31 10^6/uL (3.85-5.65) 06/24/23 04:10 Hgb 14.40 g/dL (11.27-16.99) 06/24/23 04:10 Hct 40.5 % (37-53) 06/24/23 04:10 MCV 94.0 fl (82-101) 06/24/23 04:10 MCH 33.4 pg (27-33) H 06/24/23 04:10 MCHC 35.6 g/dL (30-55) 06/24/23 04:10 RDW 12.0 % (12.1-15.1) L 06/24/23 04:10 Plt Count 111 10^3/cmm (157-399) L 06/24/23 04:10 MPV 11.3 fL (7.4-10.4) H 06/24/23 04:10 Gran % Cancelled 06/22/23 02:47 Neut % (Auto) 60.1 % 06/24/23 04:10 Lymph % (Auto) 18.1 % 06/24/23 04:10 [place] % (Auto) 12.2 % 06/24/23 04:10 Eos % (Auto) 8.7 % 06/24/23 04:10 Baso % (Auto) 0.5 % 06/24/23 04:10 Neut # (Auto) 3.40 10^3/uL (1.8-7.7) 06/24/23 04:10 Lymph # (Auto) 1.0 10^3/uL (0.8-4.8) 06/24/23 04:10 [place] # (Auto) 0.7 10^3/uL (0.2-0.9) 06/24/23 04:10 Eos # (Auto) 0.5 10^3/uL (0.0-0.8) 06/24/23 04:10 Baso # (Auto) 0.0 10^3/uL (0.0-0.1) 06/24/23 04:10 Absolute Gran (auto) Cancelled 06/22/23 02:47 Nucleated RBC % (auto) 0 % 06/24/23 04:10 Nucleated RBCs # 0.0 /100WBC 06/24/23 04:10 Sodium 140 mmol/L (136-145) 06/24/23 04:10 Potassium 4.3 mmol/L (3.5-5.1) 06/24/23 04:10 Chloride 111 mmol/L (98-107) H 06/24/23 04:10 Carbon Dioxide 21 mmol/L (22-29) L 06/24/23 04:10 Anion Gap 12.3 (5-19) 06/24/23 04:10 BUN 23 mg/dL (8-23) 06/24/23 04:10 Creatinine 1.4 mg/dL (0.7-1.2) H 06/24/23 04:10 GFR Calculation Not Reportable 06/24/23 04:10 Glucose 87 mg/dL (65-115) 06/24/23 04:10 Calculated Osmolality 293 mOsm/kg (285-295) 06/24/23 04:10 Lactic Acid 1.0 mmol/L (0.5-2.2) 06/21/23 08:40 Calcium 9.1 mg/dL (8.5-10.5) 06/24/23 04:10 Magnesium 2.0 mg/dL (1.7-2.3) 06/22/23 04:39 Iron 60 ug/dL (59-158) 06/22/23 08:19 TIBC 191 mcg/dl 06/22/23 08:19 % Saturation 31.4 % (20-50) 06/22/23 08:19 Unsat Iron Binding 131 ug/dL (112-347) 06/22/23 08:19 Ferritin 232 ng/mL (30-400) 06/22/23 08:19 Total Bilirubin 0.3 mg/dL (0.15-1.2) 06/24/23 04:10 AST 16 U/L (0-40) 06/24/23 04:10 ALT 8 U/L (0-41) 06/24/23 04:10 Alkaline Phosphatase 93 U/L (40-130) 06/24/23 04:10 Creatine Kinase 67 U/L (39-308) 06/22/23 08:19 Troponin T Baseline 29 ng/L (0-15) H 06/22/23 08:19 Troponin T 120 Minute 30.64 ng/L (0-15) H 06/22/23 10:40 Delta Troponin T 1.64 ABS# (0-10) 06/22/23 10:40 Troponin T Hi Sens 6Hr 29.22 ng/L (0-15) H 06/22/23 14:37 Troponin T Hi Sens 6Hr Delta 0.22 ng/L (0-12) 06/22/23 14:37 NT-Pro-B Natriuret Pep 1215 pg/mL (0-450) H 06/24/23 04:10 Total Protein 6.2 g/dL (6.6-8.7) L 06/24/23 04:10 Albumin 3.8 g/dL (3.5-5.2) 06/24/23 04:10 Globulin 2.4 g/dL (1.3-4.6) 06/24/23 04:10 TSH 2.54 uIU/mL (0.27-4.20) 06/21/23 12:32 Urine Color Yellow (Yellow) 06/21/23 09:16 Urine Appearance Clear (CLEAR) 06/21/23 09:16 Urine pH 6.5 (5-7) 06/21/23 09:16 Ur Specific [place] 1.010 (1.005-1.030) 06/21/23 09:16 Urine Protein Trace (Negative) 06/21/23 09:16 Urine Glucose (UA) Norm (Normal) 06/21/23 09:16 Urine Ketones Negative (Negative) 06/21/23 09:16 Urine Blood 2+ (Negative) H 06/21/23 09:16 Urine Nitrate Negative (Negative) 06/21/23 09:16 Urine Bilirubin Neg (Negative) 06/21/23 09:16 Urine Urobilinogen Norm mg/dL (Negative) 06/21/23 09:16 Ur Leukocyte Esterase Negative (Negative) 06/21/23 09:16 Urine RBC 0-4 /hpf (0-2) H 06/21/23 09:16 Urine WBC Rare /hpf (0-5) 06/21/23 09:16 Ur Squamous Epith Cells None /hpf (0-5) 06/21/23 09:16 Amorphous Sediment Not Reportable 06/21/23 09:16 Urine Bacteria None /hpf (NONE) 06/21/23 09:16 Vitals Last Vital Signs Temp 97.5 F L 06/24/23 12:00 Pulse 60 06/24/23 09:03 Resp 18 06/24/23 12:00 BP 145/84 06/24/23 09:03 Pulse Ox 96 06/24/23 12:00 O2 Del Method Room Air 06/24/23 12:00 Discharge Plan Discharge Patient Disposition: Home Condition: Stable Prescriptions: Continued docusate sodium 100 mg capsule 100 mg PO DAILY (DME) Walking Cane 4 prong See Rx Instructions .Route .MEDSUPPLY Qty: 1 0RF Rx Instructions: As directed furosemide 20 mg tablet 20 mg PO .MON/WED/FRI/SUN Qty: 90 0RF Synthroid 50 mcg tablet 50 mcg PO QAM Qty: 90 3RF aspirin 81 mg Tablet,Chewable 81 mg PO QAM Qty: 90 3RF famotidine 20 mg Tablet 20 mg PO BEDTIME Men's Daily 0.4-600 mg-mcg Capsule 1 cap PO DAILY tamsulosin 0.4 mg capsule 0.4 mg PO BID Qty: 60 0RF Changed carvedilol 12.5 mg tablet 6.25 mg PO BID Qty: 180 3RF isosorbide mononitrate 30 mg tablet extended release 24 hr 15 mg PO DAILY Qty: 90 3RF Discontinued amlodipine 10 mg tablet 5 mg PO DAILY Qty: 90 3RF Discharge Orders: Discharge Order (Routine); Ordered 06/24/23 Ordered By: Elio Marte Referrals: Aicha Moran MD [Primary Care Provider] - 1-3 days Russell Herzog M.D [Physician] - 4-7 days Willie Cash MD [Referring] - 4-7 days (trammell cath, urinary rentention) Reji Andrews MD [Hospitalist] - 6 Weeks (medistainal lymphadenoapthy) Discharge Diet: Cardiac Discharge Activity: Resume usual activity Patient Instructions: Syncope (DC), Benign Paroxysmal Positional Vertigo (DC), Hypotension (DC), Opioid Safety Activity Restrictions/Additional Instructions: -For your benign positional vertigo, please use a maneuvers that we have taught to ? For your orthostatic hypotension please ambulate with care especially with getting up from a seated position or sitting down as you have a high risk of falls I decreased her Coreg to 6.25 twice daily and decrease her Imdur to 15 mg daily and have stopped amlodipine ? Please follow-up with primary care provider for recheck and orthostatic vitals in 24 hours ? For your stress test please follow-up with cardiology if any recurrent chest pain or shortness of breath go to the emergency room ? Follow-up with your manager food beverage in [place] -For urinary retention, discharged with Trammell catheter placed please follow-up with urology -For your mediastinal lymphadenopathy please follow-up with Dr. Andrews in 6 weeks Discharge Attestations Time Spent in Discharge Care*: greater than 30 min Quality Metrics Clinical Quality Measures [ No reported AMI, CVA or VTE this stay] Coding Level of Care Code 19394 Total time (in minutes) for Discharge: 50 Diagnoses Dizziness R42 Acute urinary retention R33.8 History of CVA (cerebrovascular accident) Z86.73 Decreased cardiac ejection fraction R93.1 Chronic systolic congestive heart failure I50.22 Heart failure chronicity: chronic History of coronary artery bypass graft Z95.1 Status post transcatheter aortic valve replacement (TAVR) using bioprosthesis Z95.3 Coronary artery disease involving coronary bypass graft of [place] heart without angina pectoris I25.810 Coronary Disease-Associated Artery/Lesion type: bypass graft [place] vs. transplanted heart: [place] heart Associated angina: without angina Cardiac 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 Z95.810 Thoracic aortic aneurysm without rupture I71.2 Presence of rupture: without rupture Unilateral carotid artery disease I77.9 Vasovagal syncope R55 Dyslipidemia E78.5 Acquired hypothyroidism E03.9 Stage 2 chronic kidney disease N18.2 Chronic kidney disease stage: stage 2 (mild) Benign positional vertigo H81.10 Orthostatic hypotension I95.1 Shortness of breath R06.02
[2023-06-24] MEDS: carvedilol 6.25 mg Tablet PO (17:46)
== END 2023-06-24 18:20 | disposition home or self-care (01) | DRG 312 ==
LOC: ER 08:59 → MEDSURG 13:34
PROVIDERS: Admitting Provider Internal Medicine; Emergency Provider Family Medicine; PCP Family Medicine; Visit Provider Family Medicine
DX: I95.1 Orthostatic hypotension (principal); I69.354 Hemiplegia and hemiparesis following cerebral infarction affecting left non-dominant side; I50.22 Chronic systolic (congestive) heart failure; R33.9 Retention of urine, unspecified; I25.10 Atherosclerotic heart disease of native coronary artery without angina pectoris; Z95.1 Presence of aortocoronary bypass graft; Z95.810 Presence of automatic (implantable) cardiac defibrillator; I77.9 Disorder of arteries and arterioles, unspecified; I71.20 Thoracic aortic aneurysm, without rupture, unspecified; E78.5 Hyperlipidemia, unspecified; E03.9 Hypothyroidism, unspecified; N18.2 Chronic kidney disease, stage 2 (mild); Z79.82 Long term (current) use of aspirin; R59.1 Generalized enlarged lymph nodes; Z95.4 Presence of other heart-valve replacement
CPT/HCPCS: 36415; 51702; 70450; 70496; 70498; 71045; 78452; 80053; 81001; 82550; 82728; 83540; 83550; 83605; 83735; 83880; 84443; 84484; 85025; 93005; 93017; 93306; 93880; 96372; 96374; 96375; 97116; 97140; 97161; 97530; 99285; A9500; G0378; J0280; J1650; J2060; J2785; J7030; Q9967

== ENCOUNTER 2023-07-24 10:00 | Outpatient (CLI) | payer MEDICARE, SELFPAY ==
[2023-07-24 10:42] LABS: Add Urine Microscopic? YES; Bilirubin Urine Neg (Negative); Blood Urine 3+ (Negative); Glucose Urine UA Norm (Normal); Ketones Urine Negative (Negative); Leukocyte Esterase Urine 2+ (Negative); Nitrate Urine Positive (Negative); Protein Urine 1+ (Negative); Urine Appearance Cloudy (CLEAR); Urine Color Yellow (Yellow); Urobilinogen Urine Norm (Negative); pH Urine 6 (5-7)
[2023-07-24 10:49] LABS: Add Urine Culture? Yes; Bacteria Urine 2+ /hpf; Mucus Urine TRACE /hpf; Squamous Epithelial Cell Urine 0-4 /hpf (0-5); WBC Urine TOO NUMEROUS TO CNT /hpf (0-5)
== END 2023-07-24 10:01 | disposition home or self-care (01) ==
LOC: LAB 10:03
PROVIDERS: PCP Family Medicine; Visit Provider Family Medicine
DX: Z79.899 Other long term (current) drug therapy (principal)
CPT/HCPCS: 81001

== ENCOUNTER → 2023-10-01 11:11 | Outpatient (BNVA) | payer MEDICARE, SELFPAY | PROVIDERS: PCP Family Medicine; Visit Provider Internal Medicine Cardiovascular Disease | DX: I25.810 Atherosclerosis of coronary artery bypass graft(s) without angina pectoris (principal); I13.0 Hypertensive heart and chronic kidney disease with heart failure and stage 1 through stage 4 chronic kidney disease, or unspecified chronic kidney disease; I50.22 Chronic systolic (congestive) heart failure; N18.2 Chronic kidney disease, stage 2 (mild); Z95.1 Presence of aortocoronary bypass graft; E78.5 Hyperlipidemia, unspecified; I49.9 Cardiac arrhythmia, unspecified; Z95.3 Presence of xenogenic heart valve; I77.9 Disorder of arteries and arterioles, unspecified; Z95.810 Presence of automatic (implantable) cardiac defibrillator; R93.1 Abnormal findings on diagnostic imaging of heart and coronary circulation | CPT/HCPCS: 99214 ==

== ENCOUNTER 2023-11-03 14:36 | Emergency (ER) | payer MEDICARE, SELFPAY ==
[2023-11-03 14:41] VITALS: BP 112/73; PULSE 62; RESP 17; TEMP 36.4; O2SAT 96; BMI 23.7
[2023-11-03 15:27] LABS: Basophils % 0.7 %; Eosinophils # 0.2 10^3/uL (0.0-0.8); Eosinophils % 4.2 %; Hematocrit 44.6 % (37-53); Lymphocytes % 17.3 %; Mean Corpuscular HGB Conc 33.4 g/dL (30-55); Mean Corpuscular Volume 95.9 fl (82-101); Mean Platelet Volume 10.7 fL (7.4-10.4); Monocytes # 0.7 10^3/uL (0.2-0.9); Monocytes % 11.6 %; Neutrophils # 3.76 10^3/uL (1.8-7.7); Neutrophils % 65.8 %; Nucleated Red Blood Cells % 0 %; Platelet Count 125 10^3/cmm (157-399); Red Blood Count 4.65 10^6/uL (3.85-5.65); Red Cell Distribution Width 12.4 % (12.1-15.1); White Blood Count 5.71 10^3/uL (3.29-11.43)
[2023-11-03 15:38] LABS: Alanine Aminotransferase 11 U/L (0-41); Albumin Level 3.8 g/dL (3.5-5.2); Alkaline Phosphatase 106 U/L (40-130); Anion Gap 15.5 (5-19); Aspartate Amino Transferase 17 U/L (0-40); Blood Urea Nitrogen 25 mg/dL (8-23); Calcium 8.7 mg/dL (8.5-10.5); Carbon Dioxide 21 mmol/L (22-29); Chloride 106 mmol/L (98-107); Globulin 2.7 g/dL (1.3-4.6); Glucose 116 mg/dL (65-115); Osmolality Calculated 291 mOsm/kg (285-295); Potassium 4.5 mmol/L (3.5-5.1); Sodium 138 mmol/L (136-145); Total Bilirubin 0.4 mg/dL (0.15-1.2); Total Protein 6.5 g/dL (6.6-8.7)
--- NOTE | 2023-11-03 16:21 | W.ED.MALEGU ---
HPI - Male Genitourinary General: Chief complaint: Urogenital-Male Stated complaint: unable to pee Time Seen by Provider: 11/03/23 16:04 History of Present Illness: 83-year-old male with a history of TAVR, defibrillator, stroke, hyperlipidemia, diverticulosis, chronic kidney disease, systolic congestive heart failure and coronary artery disease who presents to the emergency room with decreased urinary output. Difficult to tell whether he is having decreased urine production or decreased output from blockage. No fevers. No nausea or vomiting. No real pelvic abdominal pain. Related Data Home Medications Medication Instructions Recorded Confirmed docusate sodium 100 mg capsule 100 mg PO DAILY 01/10/23 10/01/23 multivit with minerals-folic 1 cap PO DAILY 06/19/23 10/01/23 acid-lycopene 0.4 mg-600 mcg capsule (Men's Daily) famotidine 20 mg tablet 20 mg PO BEDTIME PRN 10/01/23 10/01/23 Previous Rx's Medication Instructions Recorded aspirin 81 mg chewable tablet 81 mg PO QAM #90 tabs 12/25/21 Walking Cane 4 prong #1 ea 02/07/22 levothyroxine 50 mcg tablet 50 mcg PO QAM #90 tabs 04/24/23 (Synthroid) carvedilol 12.5 mg tablet 6.25 mg (1/2 x 12.5 mg) PO BID 06/24/23 #180 tabs isosorbide mononitrate 30 mg 15 mg (1/2 x 30 mg) PO DAILY #90 06/24/23 tablet,extended release 24 hr tabs tamsulosin 0.4 mg capsule 0.4 mg PO DAILY #60 caps 07/16/23 fluticasone propionate 50 2 spray intranasal DAILY #16 grams 09/25/23 mcg/actuation nasal spray,suspension (Flonase Allergy Relief) meclizine 12.5 mg tablet 12.5 mg PO TID PRN dizziness #20 09/25/23 tabs furosemide 20 mg tablet 20 mg PO .SAT/SAT/SAT/SUN #90 tabs 09/27/23 amlodipine 5 mg tablet 5 mg PO DAILY #90 tabs 10/01/23 cefdinir 300 mg capsule 300 mg PO BID 7 days #14 caps 11/03/23 Allergies Allergy/AdvReac Type Severity Reaction Status Date / Time rosuvastatin [From Crestor] Allergy Mild Makes me Verified 11/03/23 14:47 daria nitroglycerin Allergy Unknown Makes me Verified 11/03/23 14:47 wild amitriptyline AdvReac Made me Verified 11/03/23 14:47 weak and daria, wasn't thinking right rivaroxaban [From Xarelto] AdvReac black stool Verified 11/03/23 14:47 Review of Systems Narrative: Constitutional symptoms: Negative except as documented in HPI. Skin symptoms: Negative except as documented in HPI. Eye symptoms: Negative except as documented in HPI. ENMT symptoms: Negative except as documented in HPI. Respiratory symptoms: Negative except as documented in HPI. Cardiovascular symptoms: Negative except as documented in HPI. Gastrointestinal symptoms: Negative except as documented in HPI. Genitourinary symptoms: Negative except as documented in HPI. Musculoskeletal symptoms: Negative except as documented in HPI. Neurologic symptoms: Negative except as documented in HPI. Psychiatric symptoms: Negative except as documented in HPI. Endocrine symptoms: Negative except as documented in HPI. 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 Seborrheic keratoses Stroke Dizziness and giddiness Fatigue Dyslipidemia Diverticulosis Hiatal hernia History of pulmonary embolism History of Sindy-Kirk syndrome Chronic kidney disease Insomnia GERD (gastroesophageal reflux disease) Systolic congestive heart failure Thoracic aortic aneurysm CAD (coronary artery disease) Surgical History Status post transcatheter aortic valve replacement (TAVR) using bioprosthesis aortic stenosis History of drainage of abscess Percutaneous, right lower quadrant suspected appendiceal abscess History of cataract surgery Bilateral History of coronary artery stent placement Reports a total of 3 stents [facility] [place] [facility] [place] [facility] 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 History of cholecystectomy Family History Mother Diabetes Stroke Father Gallbladder disease Brother Chronic kidney disease (CKD) Diabetes Denies family history of CAD (coronary artery disease) Clotting disorder Dementia Suicide Anesthesia complication Bleeding disorder Lung disease Cancer Social History Smoking and tobacco/nicotine status: unknown if used tobacco/nicotine Alcohol intake: never Substance/Drug Use: never Caregiver/support person: Yes Household members: spouse Physical Exam Narrative: EXAM NARRATIVE: General: Alert, no acute distress. Skin: Warm, dry. Head: Normocephalic, atraumatic. Neck: Supple, trachea midline. Eye: Extraocular movements are intact. Ears, nose, mouth and throat: mucosa moist. Cardiovascular: Regular, Normal peripheral perfusion. Respiratory: Lungs are clear to auscultation, respirations are non-labored, breath sounds are equal, Symmetrical chest wall expansion. Gastrointestinal: Soft, Nontender, Non distended Musculoskeletal: Normal ROM, no deformity. Neurological: Alert and oriented, No focal neurological deficit observed. Psychiatric: Cooperative, appropriate mood & affect. Course Vital Signs: Vital signs: Vital Signs Temperature 97.6 F 11/03/23 14:41 Pulse Rate 62 11/03/23 17:17 Respiratory Rate 17 11/03/23 17:17 Blood Pressure 112/73 11/03/23 14:41 Pulse Oximetry 95 11/03/23 17:17 Oxygen Delivery Me thod Room Air 11/03/23 17:17 MDM - Male Medical Decision Making Medical decision making: Differential diagnosis for patient with urinary retention including but not limited to and based on the above HPI, review of systems and physical exam:-: Urinary retention. Urinary tract infection. concerns for systemic infection, renal dysfunction - Workup: Bladder scan and labwork ordered to evaluate, rule in and rule out above pathologies. Lab Review: Laboratory results were reviewed and interpreted by myself the emergency room physician. No leukocytosis. Slight elevation in BUN and creatinine at 25 and 1.5. Fluids are being given. Urinalysis shows 11-20 reds and 0-5 whites. Because of the retention and placing on antibiotics. Bladder scan: 600 cc reviewed on bladder scan so a Cutler catheter was placed. Over 600 cc were removed. I reviewed the patient's medical record. Reexamination: Patient says he feels much better now the Cutler catheter has been placed. Patient remained stable. No increased work of breathing. No altered mental status. No focal motor deficits. Assessment and plan: Urinary tension Urinary tract infection ?Cutler and IV Rocephin in the emergency room. - Discharged home - Discussed findings and plan with patient. Answered any questions. - All laboratory values were reviewed and interpreted personally by myself, the ER physician - All imaging was reviewed and interpreted personally by myself, the ER physician. - Evaluation and treatment of this problem were appropriate in the emergency setting Lab Data 11/03/23 15:14 11/03/23 15:14 Laboratory Results WBC 5.71 10^3/uL (3.29-11.43) 11/03/23 15:14 RBC 4.65 10^6/uL (3.85-5.65) 11/03/23 15:14 Hgb 14.90 g/dL (11.27-16.99) 11/03/23 15:14 Hct 44.6 % (37-53) 11/03/23 15:14 MCV 95.9 fl (82-101) 11/03/23 15:14 MCH 32.0 pg (27-33) 11/03/23 15:14 MCHC 33.4 g/dL (30-55) 11/03/23 15:14 RDW 12.4 % (12.1-15.1) 11/03/23 15:14 Plt Count 125 10^3/cmm (157-399) L 11/03/23 15:14 MPV 10.7 fL (7.4-10.4) H 11/03/23 15:14 Neut % (Auto) 65.8 % 11/03/23 15:14 Lymph % (Auto) 17.3 % 11/03/23 15:14 [place] % (Auto) 11.6 % 11/03/23 15:14 Eos % (Auto) 4.2 % 11/03/23 15:14 Baso % (Auto) 0.7 % 11/03/23 15:14 Neut # (Auto) 3.76 10^3/uL (1.8-7.7) 11/03/23 15:14 Lymph # (Auto) 1.0 10^3/uL (0.8-4.8) 11/03/23 15:14 [place] # (Auto) 0.7 10^3/uL (0.2-0.9) 11/03/23 15:14 Eos # (Auto) 0.2 10^3/uL (0.0-0.8) 11/03/23 15:14 Baso # (Auto) 0.0 10^3/uL (0.0-0.1) 11/03/23 15:14 Nucleated RBC % (auto) 0 % 11/03/23 15:14 Nucleated RBCs # 0.0 /100WBC 11/03/23 15:14 Sodium 138 mmol/L (136-145) 11/03/23 15:14 Potassium 4.5 mmol/L (3.5-5.1) 11/03/23 15:14 Chloride 106 mmol/L (98-107) 11/03/23 15:14 Carbon Dioxide 21 mmol/L (22-29) L 11/03/23 15:14 Anion Gap 15.5 (5-19) 11/03/23 15:14 BUN 25 mg/dL (8-23) H 11/03/23 15:14 Creatinine 1.5 mg/dL (0.7-1.2) H 11/03/23 15:14 GFR Calculation Not Reportable 11/03/23 15:14 Glucose 116 mg/dL (65-115) H 11/03/23 15:14 Calculated Osmolality 291 mOsm/kg (285-295) 11/03/23 15:14 Calcium 8.7 mg/dL (8.5-10.5) 11/03/23 15:14 Total Bilirubin 0.4 mg/dL (0.15-1.2) 11/03/23 15:14 AST 17 U/L (0-40) 11/03/23 15:14 ALT 11 U/L (0-41) 11/03/23 15:14 Alkaline Phosphatase 106 U/L (40-130) 11/03/23 15:14 Total Protein 6.5 g/dL (6.6-8.7) L 11/03/23 15:14 Albumin 3.8 g/dL (3.5-5.2) 11/03/23 15:14 Globulin 2.7 g/dL (1.3-4.6) 11/03/23 15:14 Urine Color Yellow (Yellow) 11/03/23 17:25 Urine Appearance Clear (CLEAR) 11/03/23 17:25 Urine pH 5.5 (5-7) 11/03/23 17:25 Ur Specific Castor 1.015 (1.005-1.030) 11/03/23 17:25 Urine Protein 2+ (Negative) A 11/03/23 17:25 Urine Glucose (UA) Negative (Normal) 11/03/23 17:25 Urine Ketones Negative (Negative) 11/03/23 17:25 Urine Blood 1+ (Negative) A 11/03/23 17:25 Urine Nitrate Negative (Negative) 11/03/23 17:25 Urine Bilirubin Negative (Negative) 11/03/23 17:25 Urine Urobilinogen 1.0 mg/dL (Negative) 11/03/23 17:25 Ur Leukocyte Esterase Negative (Negative) 11/03/23 17:25 Urine RBC 11-20 /hpf (0-2) H 11/03/23 17:25 Urine WBC 0-5 /hpf (0-5) 11/03/23 17:25 Ur Squamous Epith Cells 0-5 /hpf (0-5) 11/03/23 17:25 Amorphous Sediment Not Reportable 11/03/23 17:25 Urine Bacteria None seen /hpf (NONE) 11/03/23 17:25 Hyaline Casts 0.40 /lpf 11/03/23 17:25 No radiology studies performed this visit Discharge Plan Discharge Patient Disposition: Home Clinical Impression: Urinary retention Condition: Stable Prescriptions: New cefdinir 300 mg capsule 300 mg PO BID 7 Days Qty: 14 0RF No Action docusate sodium 100 mg capsule 100 mg PO DAILY (DME) Walking Cane 4 prong See Rx Instructions .Route .MEDSUPPLY Qty: 1 0RF Rx Instructions: As directed amlodipine 5 mg tablet 5 mg PO DAILY Qty: 90 4RF fluticasone propionate [Flonase Allergy Relief] 50 mcg/actuation spray,suspension 2 spray intranasal DAILY Qty: 16 0RF Rx Instructions: administer into each nostril meclizine 12.5 mg tablet 12.5 mg PO TID PRN (Reason: dizziness) Qty: 20 0RF tamsulosin 0.4 mg capsule 0.4 mg PO DAILY Qty: 60 0RF Synthroid 50 mcg tablet 50 mcg PO QAM Qty: 90 3RF furosemide 20 mg tablet 20 mg PO .MON/WED/FRI/SUN Qty: 90 3RF aspirin 81 mg Tablet,Chewable 81 mg PO QAM Qty: 90 3RF Men's Daily 0.4-600 mg-mcg Capsule 1 cap PO DAILY famotidine 20 mg tablet 20 mg PO BEDTIME PRN carvedilol 12.5 mg tablet 6.25 mg PO BID Qty: 180 3RF isosorbide mononitrate 30 mg tablet extended release 24 hr 15 mg PO DAILY Qty: 90 3RF Discharge Orders: Discharge ED (Routine); Ordered 11/03/23 Ordered By: Kate Randolph Referrals: Fadi Weller [Referring] - 4-7 days (Please call for an appointment for follow-up for possible Cutler removal. Call tomorrow. Appointment should be in the next 4 to 7 days.) Aicha Moran MD [Primary Care Provider] - Discharge Diet: Usual diet Discharge Activity: Increase activity as tolerated Patient Instructions: Cutler Catheter Placement and Care (ED), How to Change a Catheter Drainage Bag (DC) Activity Restrictions/Additional Instructions: Thank you for choosing [facility] for your healthcare needs today. Please realize this is an emergency room and that we are providing you with a medical screening exam and this may not be complete and all inclusive of all the testing and or work up that you may need to determine your ailment or severity of your illness. You have been screened and evaluated and felt safe for discharge. Health conditions do change or evolve sometimes and as such it is important that you follow up with your Primary Doctor to be re checked, 3-5 days is a general good time frame for follow up. You are always welcome to return to the ED for re assessment if your symptoms are worsening or you have new concerns Coding Level of Care Code ED Combination Presser for Gilbert Bettencourt
[2023-11-03 17:17] VITALS: PULSE 62; RESP 17; O2SAT 95
[2023-11-03] MEDS: sodium chloride 0.9% 1,000 ML 999 ML IV (17:31)
[2023-11-03] MEDS: cefepime 2,000 MG in sodium chloride 0.9% (plus) 50 ML 100 MG IV (17:31)
[2023-11-03 17:44] LABS: Charge for UA Resulting for Rev
[2023-11-03 17:47] LABS: Bilirubin Urine Negative (Negative); Blood Urine 1+ (Negative); Glucose Urine UA Negative (Normal); Ketones Urine Negative (Negative); Leukocyte Esterase Urine Negative (Negative); Nitrate Urine Negative (Negative); Protein Urine 2+ (Negative); Specific Gravity, Urine 1.015 (1.005-1.030); Urine Appearance Clear (CLEAR); Urine Color Yellow (Yellow); pH Urine 5.5 (5-7)
[2023-11-03 17:49] LABS: Bacteria Urine None Seen /hpf; Squamous Epithelial Cell Urine 0-5 /hpf (0-5); WBC Urine 0-5 /hpf (0-5)
== END 2023-11-03 18:58 | disposition home or self-care (01) ==
PROVIDERS: Nurse Practitioner Family; Emergency Provider Emergency Medicine; PCP Family Medicine
DX: R33.9 Retention of urine, unspecified (principal); Z79.82 Long term (current) use of aspirin; Z86.73 Personal history of transient ischemic attack (TIA), and cerebral infarction without residual deficits; E78.5 Hyperlipidemia, unspecified; N18.9 Chronic kidney disease, unspecified; I25.10 Atherosclerotic heart disease of native coronary artery without angina pectoris; I50.20 Unspecified systolic (congestive) heart failure
CPT/HCPCS: 51798; 80053; 81003; 81015; 85025; 96374; 99284; J0692; J7030

== ENCOUNTER 2024-01-16 09:25 | Emergency (ER) | payer MEDICARE, SELFPAY ==
[2024-01-16 09:33] VITALS: BP 190/106; PULSE 71; TEMP 36.4; O2SAT 96; BMI 23.7
--- NOTE | 2024-01-16 10:34 | ED_ITS ---
HPI - Male Genitourinary General: Chief complaint: Urogenital-Male Stated complaint: cather is leeking Time Seen by Provider: 01/16/24 10:20 History of Present Illness: 83-year-old man who [facility] Cutler catheter issues. He follows with urology at [facility]. The catheter bag is leaking. He is having no abdominal pain. Is not retaining urine. No fevers. No altered mental status. No nausea or vomiting. Related Data Home Medications Medication Instructions Recorded Confirmed docusate sodium 100 mg capsule 100 mg PO DAILY 01/10/23 01/16/24 multivit with minerals-folic 1 cap PO DAILY 06/19/23 01/16/24 acid-lycopene 0.4 mg-600 mcg capsule (Men's Daily) famotidine 20 mg tablet 20 mg PO BEDTIME PRN Acid Reflux 10/01/23 01/16/24 carvedilol 25 mg tablet 12.5 mg PO BID 01/16/24 01/16/24 finasteride 5 mg tablet 5 mg PO DAILY 01/16/24 01/16/24 Previous Rx's Medication Instructions Recorded aspirin 81 mg chewable tablet 81 mg PO QAM #90 tabs 12/25/21 Walking Cane 4 prong #1 ea 02/07/22 levothyroxine 50 mcg tablet 50 mcg PO QAM #90 tabs 04/24/23 (Synthroid) isosorbide mononitrate 30 mg 15 mg (1/2 x 30 mg) PO DAILY #90 06/24/23 tablet,extended release 24 hr tabs tamsulosin 0.4 mg capsule 0.4 mg PO DAILY #60 caps 07/16/23 meclizine 12.5 mg tablet 12.5 mg PO TID PRN dizziness #20 09/25/23 tabs furosemide 20 mg tablet 20 mg PO .SAT/SAT/SAT/SUN #90 tabs 09/27/23 amlodipine 5 mg tablet 5 mg PO DAILY #90 tabs 10/01/23 Allergies Allergy/AdvReac Type Severity Reaction Status Date / Time rosuvastatin [From Crestor] Allergy Mild Makes me Verified 01/16/24 09:39 daria nitroglycerin Allergy Unknown Makes me Verified 01/16/24 09:39 wild amitriptyline AdvReac Made me Verified 01/16/24 09:39 weak and daria, wasn't thinking right rivaroxaban [From Xarelto] AdvReac black stool Verified 01/16/24 09:39 Review of Systems Narrative: Constitutional symptoms: Negative except as documented in HPI. Skin symptoms: Negative except as documented in HPI. Eye symptoms: Negative except as documented in HPI. ENMT symptoms: Negative except as documented in HPI. Respiratory symptoms: Negative except as documented in HPI. Cardiovascular symptoms: Negative except as documented in HPI. Gastrointestinal symptoms: Negative except as documented in HPI. Genitourinary symptoms: Negative except as documented in HPI. Musculoskeletal symptoms: Negative except as documented in HPI. Neurologic symptoms: Negative except as documented in HPI. Psychiatric symptoms: Negative except as documented in HPI. Endocrine symptoms: Negative except as documented in HPI. 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 Seborrheic keratoses Stroke Dizziness and giddiness Fatigue Dyslipidemia Diverticulosis Hiatal hernia History of pulmonary embolism History of Sindy-Kirk syndrome Chronic kidney disease Insomnia GERD (gastroesophageal reflux disease) Systolic congestive heart failure Thoracic aortic aneurysm CAD (coronary artery disease) Surgical History Status post transcatheter aortic valve replacement (TAVR) using bioprosthesis aortic stenosis History of drainage of abscess Percutaneous, right lower quadrant suspected appendiceal abscess History of cataract surgery Bilateral History of coronary artery stent placement Reports a total of 3 stents after her last CABG done in [facility] History of coronary artery bypass graft 1996 in 2010 -- 3 vessels total History of cholecystectomy Family History Mother Diabetes Stroke Father Gallbladder disease Brother Chronic kidney disease (CKD) Diabetes Denies family history of CAD (coronary artery disease) Clotting disorder Dementia Suicide Anesthesia complication Bleeding disorder Lung disease Cancer Social History Smoking and tobacco/nicotine status: unknown if used tobacco/nicotine Alcohol intake: never Substance/Drug Use: never Caregiver/support person: Yes Household members: spouse Physical Exam Narrative: EXAM NARRATIVE: General: Alert, no acute distress. Skin: warm and dry Head: Normocephalic Neck: Trachea midline Eye: Extraocular movements are intact. Ears, nose, mouth and throat: Oral mucosa moist Respiratory: Respirations are non-labored Musculoskeletal: Normal ROM Genitourinary: Cutler catheter is in place. He does appear to have some leaking near the bag. Neurological: Alert and oriented, No focal neurological deficit observed. Psychiatric: Cooperative, appropriate mood & affect. Course Vital Signs: Vital signs: Vital Signs Temperature 97.6 F 01/16/24 09:33 Pulse Rate 71 01/16/24 09:33 Blood Pressure 190/106 01/16/24 09:33 Pulse Oximetry 96 01/16/24 09:33 Oxygen Delivery Me thod Room Air 01/16/24 09:33 MDM - Male Medical Decision Making Cutler catheter repaired by nursing. Assessment and plan: Cutler catheter dysfunction - Discharged home - Discussed plan with patient. Answered any questions. - Evaluation and treatment of this problem were appropriate in the emergency setting. No radiology studies performed this visit Discharge Plan Discharge Patient Disposition: Home Clinical Impression: Cutler catheter problem Condition: Stable Prescriptions: No Action docusate sodium 100 mg capsule 100 mg PO DAILY (DME) Walking Cane 4 prong See Rx Instructions .Route .MEDSUPPLY Qty: 1 0RF Rx Instructions: As directed amlodipine 5 mg tablet 5 mg PO DAILY Qty: 90 4RF meclizine 12.5 mg tablet 12.5 mg PO TID PRN (Reason: dizziness) Qty: 20 0RF tamsulosin 0.4 mg capsule 0.4 mg PO DAILY Qty: 60 0RF Synthroid 50 mcg tablet 50 mcg PO QAM Qty: 90 3RF furosemide 20 mg tablet 20 mg PO .MON/SAT/SAT/SUN Qty: 90 3RF aspirin 81 mg Tablet,Chewable 81 mg PO QAM Qty: 90 3RF Men's Daily 0.4-600 mg-mcg Capsule 1 cap PO DAILY famotidine 20 mg tablet 20 mg PO BEDTIME PRN (Reason: Acid Reflux) isosorbide mononitrate 30 mg tablet extended release 24 hr 15 mg PO DAILY Qty: 90 3RF carvedilol 25 mg tablet 12.5 mg PO BID finasteride 5 mg tablet 5 mg PO DAILY Discharge Orders: Discharge ED (Routine); Ordered 01/16/24 Ordered By: Kate Randolph Referrals: Aicha Moran MD [Primary Care Provider] - Discharge Diet: Usual diet Discharge Activity: Increase activity as tolerated Patient Instructions: Cutler Catheter Placement and Care (ED), How to Change a Catheter Drainage Bag (DC), Opioid Safety, Pain Management Activity Restrictions/Additional Instructions: Thank you for choosing [facility] for your healthcare needs today. Please realize this is an emergency room and that we are providing you with a medical screening exam and this may not be complete and all inclusive of all the testing and or work up that you may need to determine your ailment or severity of your illness. You have been screened and evaluated and felt safe for discharge. Health conditions do change or evolve sometimes and as such it is important that you follow up with your Primary Doctor to be re checked, 3-5 days is a general good time frame for follow up. You are always welcome to return to the ED for re assessment if your symptoms are worsening or you have new concerns Coding Level of Care Code ED Data [employer] Architect for Gilbert Bettencourt
[2024-01-16 11:00] VITALS: BP 169/102; PULSE 67; O2SAT 97
--- NOTE | 2024-01-16 11:10 | PC.PHAR ---
pt states arrived too early to take am medications today. Verified med list with pt who uses mail order for most meds.
[2024-01-16 11:50] VITALS: BP 170/102; PULSE 65; O2SAT 97
== END 2024-01-16 11:50 | disposition home or self-care (01) ==
PROVIDERS: Emergency Provider Emergency Medicine; PCP Family Medicine
DX: T83.038A Leakage of other urinary catheter, initial encounter (principal); Z79.82 Long term (current) use of aspirin; I25.10 Atherosclerotic heart disease of native coronary artery without angina pectoris; X58.XXXA Exposure to other specified factors, initial encounter
CPT/HCPCS: 51702; 99283

== ENCOUNTER 2024-01-24 08:37 | Observation (INO) | payer MEDICARE, SELFPAY ==
[2024-01-24] VITALS (25 sets, daily range): BP systolic 99–159; BP diastolic 64–99; PULSE 59–83; RESP 10–20; TEMP 36.4–36.7; O2SAT 94–100; BMI 24.9
--- NOTE | 2024-01-24 08:42 | CT_ITS ---
WS: [id number] CT ANGIOGRAM CEREBRAL AND CAROTID ARTERIES HISTORY: cva TECHNIQUE: CT angiogram is performed of the carotid and cerebral arteries. During arterial injection imaging is obtained from the skull vertex to the aortic arch in 1.25 mm imaging. Coronal and sagittal reformats are submitted. Additional multi planar reformats of the carotid and cerebral arteries are submitted, MIP imaging also reviewed. NASCET criteria utilized. [facility] at least one of these dose optimization techniques: automated exposure control; mA and/or kV adjust ment per patient size (includes targeted exams where dose is matched to clinical indication); or iter ative reconstruction. CONTRAST: Omnipaque 350; 100 mL IV. DLP: 559.98 mGy.cm COMPARISON: 06/22/2023 Carotid Angiogram: Right carotid: Common carotid artery: Arises normally from the innominate artery. No significant plaque or stenosis. Tortuous carotid artery. Internal carotid artery: Calcified plaque and intimal thickening at the bifurcation. Similar appearan ce to the prior CTA from 06/22/2023. Intimal thickening and soft plaque throughout a large portion of the ICA but similar to the prior study. External carotid artery: Patent. Left carotid: Common carotid artery: Arises normally from the aorta. No significant plaque or stenosis. Internal carotid artery: Mild plaque. No high-grade or significant stenosis. External carotid artery: Patent. Right vertebral artery: Small caliber RIGHT vertebral artery does not well opacified with contrast. S imilar to the prior study. Intermittently is visualized throughout its course. Left vertebral artery: Dominant LEFT vertebral artery with scattered plaque. No occlusions. Proximal vertebral arteries poorly visualized where it arises from the subclavian artery. Subclavian arteries: No stenosis or significant abnormality. Upper thorax: Normal. Thyroid gland: Normal. Osseous structures: No destructive bone lesions. CEREBRAL ANGIOGRAM: Intracranial vertebral arteries: Poorly opacified RIGHT vertebral artery as seen on the so on the emery or study. Dominant LEFT vertebral artery. Basilar artery: No significant stenosis or occlusion. No aneurysm. Intracranial Internal carotid arteries: Atherosclerotic plaque through the cavernous carotid arteries with moderate stenosis. Ectatic mild dilatation of the LEFT ICA through the cavernous carotid simila r to the prior study. No occlusions are identified. Middle cerebral arteries: Both middle cerebral arteries are patent. 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 This may be due to its very small size. No aneurysms. Similar distribution of distal middle cerebral artery as compared to the prior study. Anterior cerebral arteries and ACOM: Normal. Posterior cerebral arteries and PCOM's: Normal. Dural venous sinuses are normally enhancing. Mastoid air cells: Normal. Paranasal sinuses: Normal. Calvarium: Normal. CT/CT angio headneck* [id number] IMPRESSION: 1. 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 Stenosi s near 50 to 60%. No occlusions. No change since 06/22/2023. 2. 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 Calcified plaque and soft plaque narrowing the lumen. Similar to the prior study. 3. No significant stenosis LEFT cervical ICA. 4. Previously described LEFT M1 segment aneurysm is not identified today. This may be due to its small size. 5. Heavily diseased at with diminished enhancement of the RIGHT vertebral yuri ry is chronic.
--- NOTE | 2024-01-24 08:42 | XR_ITS ---
WS: [id number] Portable AP upright chest, 01/24/2024 Clinical Data: cva Comparison: Portable chest, 06/21/2023 Findings: No nodules, masses or effusions are seen. The heart is normal. The pulmonary vascularity is not increased. No pneumonia or pneumothorax is seen. There is a cardiac pacemaker and defibrillator with the generator overlying the left lateral chest and multiple wires ending in the heart. Midline s ternotomy sutures are present. The aortic arch and descending thoracic aorta show tortuosity. Monitor leads are on the chest wall. XR/XR chest 1V portable [id number] Impression: 1. No change in cardiac pacemaker. 2. Atherosclerosis.
--- NOTE | 2024-01-24 08:42 | CT_ITS ---
WS: [id number] CT HEAD NONCONTRAST HISTORY: Symptoms of acute stroke TECHNIQUE: Contiguous axial imaging performed through the brain. Bone and soft tissue windows. Sagitt al and coronal reformats reviewed. All CT scans at [facility] use at least one of these dose optimization techniques: automated exposure control; mA and/or kV adjustment per patient size (includ es targeted exams where dose is matched to clinical indication); or iterative reconstruction. DLP: 1089.78 mGy COMPARISON: 06/22/2023 No acute intracranial hemorrhage, midline shift or mass effect. Moderate atrophy and severe small vessel ischemic disease. Small lacunar infarct caudate body. No acu te interval change. No sulcal effacement or edema. Moderate cerebellar atrophy. Ventricles: Ventricles are mildly dilated on the basis of central and peripheral atrophy. No inferior displacement of the cerebellar tonsils. Paranasal sinuses: Mild mucoperiosteal thickening in the ethmoid air cells. Mastoid air cells: Well pneumatized. Calvarium and scalp: Skull is intact with no soft tissue edema or swelling. Advanced atherosclerotic plaque in the intracranial carotid arteries. CT/CT head thrombolytic 47645 IMPRESSION: 1. No acute intracranial hemorrhage or edema. 2. Moderate atrophy with severe small vessel ischemic disease. No new area of sulcal effacement or edema. Notified Nayana Aguilar MD at 01/24/2024 8:58 AM.
[2024-01-24 08:48] LABS: Glucose Point of Care 137 mg/dL (70-110)
[2024-01-24 09:04] LABS: Basophils % 0.4 %; Eosinophils # 0.4 10^3/uL (0.0-0.8); Eosinophils % 5.7 %; Hematocrit 41.5 % (37-53); Lymphocytes % 13.9 %; Mean Corpuscular HGB Conc 34.5 g/dL (30-55); Mean Corpuscular Hemoglobin 32.5 pg (27-33); Mean Corpuscular Volume 94.3 fl (82-101); Mean Platelet Volume 11.1 fL (7.4-10.4); Monocytes # 0.8 10^3/uL (0.2-0.9); Monocytes % 10.8 %; Neutrophils # 4.83 10^3/uL (1.8-7.7); Neutrophils % 68.8 %; Nucleated Red Blood Cells % 0 %; Platelet Count 124 10^3/cmm (157-399); Red Cell Distribution Width 12.8 % (12.1-15.1); White Blood Count 7.03 10^3/uL (3.29-11.43)
--- NOTE | 2024-01-24 09:13 | ECG_ITS ---
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 Measurements Intervals [place] Rate: 61 P: 128 FL: 165 QRS: -26 QRSD: 173 T: 184 QT: 496 QTc: 503 Interpretive Statements ELECTRONIC ATRIAL PACEMAKER ELECTRONIC VENTRICULAR PACEMAKER ABNORMAL RHYTHM ECG Compared to ECG 06/22/2023 13:37:10 No significant changes Electronically Signed On 01-24-2024 22:35:13 SUSTAINABLE DESIGN COORDINATOR by Troy Evans M.D. [id number]
[2024-01-24 09:14] LABS: INR 1.09 (0.8-1.2)
[2024-01-24 09:15] LABS: Partial Thromboplastin Time 31.5 SECONDS (23.9-36.7)
[2024-01-24] MEDS: iohexol 350 mg/mL 500 mL Btl (per mL) IV (09:16)
[2024-01-24 09:18] LABS: Alanine Aminotransferase 10 U/L (0-41); Albumin Level 3.9 g/dL (3.5-5.2); Alkaline Phosphatase 93 U/L (40-130); Aspartate Amino Transferase 15 U/L (0-40); Blood Urea Nitrogen 26 mg/dL (8-23); Calcium 8.2 mg/dL (8.5-10.5); Carbon Dioxide 24 mmol/L (22-29); Chloride 104 mmol/L (98-107); Globulin 2.5 g/dL (1.3-4.6); Glucose 130 mg/dL (65-115); Osmolality Calculated 291 mOsm/kg (285-295); Sodium 137 mmol/L (136-145); Total Bilirubin 0.5 mg/dL (0.15-1.2); Total Protein 6.4 g/dL (6.6-8.7)
--- NOTE | 2024-01-24 09:33 | ED_ITS ---
HPI - Neuro Symptoms/Deficit 2 General: Chief Complaint: Neuro Symptoms/Deficit Stated Complaint: not able to use left side, state stroke Time Seen by Provider: 01/24/24 08:40 Source: patient Mode of arrival: ambulatory Limitations: no limitations History of Present Illness: 83-year-old male has a history of CVA in the past states that he has had left leg weakness started yesterday afternoon not sure the exact time. He states that he has had a hard time walking and moving his leg he was able to stand and ambulate here but has left-sided leg weakness he denies any slurred speech dizziness he has no obvious facial droop. He denies headache or fever or pain Associated symptoms: Deny chest pain, headache(s), nausea or vomiting Related Data Home Medications Medication Instructions Recorded Confirmed docusate sodium 100 mg capsule 100 mg PO DAILY 01/10/23 01/24/24 carvedilol 25 mg tablet 12.5 mg PO BID 01/16/24 01/24/24 finasteride 5 mg tablet 5 mg PO DAILY 01/16/24 01/24/24 amlodipine 5 mg tablet 5 mg PO QAM 01/24/24 01/24/24 spqrmlre-mguupeni-mdlut acid 400 1 tab PO QAM 01/24/24 01/24/24 mcg-vit K 20 mcg-lycop 300 mcg tablet (Men's Daily Formula) tamsulosin 0.4 mg capsule 0.4 mg PO QPM 01/24/24 01/24/24 Previous Rx's Medication Instructions Recorded aspirin 81 mg chewable tablet 81 mg PO QAM #90 tabs 12/25/21 Walking Cane 4 prong #1 ea 02/07/22 levothyroxine 50 mcg tablet 50 mcg PO QAM #90 tabs 04/24/23 (Synthroid) isosorbide mononitrate 30 mg 15 mg (1/2 x 30 mg) PO DAILY #90 06/24/23 tablet,extended release 24 hr tabs meclizine 12.5 mg tablet 12.5 mg PO TID PRN dizziness #20 09/25/23 tabs furosemide 20 mg tablet 20 mg PO .MON/WED/SAT/SUN #90 tabs 09/27/23 Allergies Allergy/AdvReac Type Severity Reaction Status Date / Time rosuvastatin [From Crestor] Allergy Mild Makes me Verified 01/16/24 09:39 daria nitroglycerin Allergy Unknown Makes me Verified 01/16/24 09:39 wild amitriptyline AdvReac Made me Verified 01/16/24 09:39 weak and daria, wasn't thinking right rivaroxaban [From Xarelto] AdvReac black stool Verified 01/16/24 09:39 Review of Systems 2 Const: Denies: fever(s), chills, body aches or change in appetite Eyes: Denies: blurry vision or eye discomfort ENMT: Denies: throat pain or dental pain Card: Denies: chest pain Resp: Denies: dyspnea GI: Denies: abdominal pain, nausea, vomiting or diarrhea Musc: Denies: neck pain or back pain Skin/Breast: Denies: rash Neuro: Reports: weakness in extremities; Denies: headache(s) PFSH ED 2 PFSH: Medical History 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 Seborrheic keratoses Stroke Dizziness and giddiness Fatigue Dyslipidemia Diverticulosis Hiatal hernia History of pulmonary embolism History of Sindy-Kirk syndrome Chronic kidney disease Insomnia GERD (gastroesophageal reflux disease) Systolic congestive heart failure Thoracic aortic aneurysm CAD (coronary artery disease) Surgical History Status post transcatheter aortic valve replacement (TAVR) using bioprosthesis aortic stenosis History of drainage of abscess Percutaneous, right lower quadrant suspected appendiceal abscess History of cataract surgery Bilateral History of coronary artery stent placement Reports a total of 3 stents after her last CABG done in [facility] Dr. [facility] History of coronary artery bypass graft 1996 in 2010 -- 3 vessels total History of cholecystectomy Family History Mother Diabetes Stroke Father Gallbladder disease Brother Chronic kidney disease (CKD) Diabetes Denies family history of CAD (coronary artery disease) Clotting disorder Dementia Suicide Anesthesia complication Bleeding disorder Lung disease Cancer Social History Smoking and tobacco/nicotine status: unknown if used tobacco/nicotine Alcohol intake: never Substance/Drug Use: never Caregiver/support person: Yes Household members: spouse NIH stroke score 2 NIHSS: Level Of Consciousness - 1a: 0 Level Of Consciousness Questions - 1b: Both Correct Level Of Consciousness Commands - 1c: Both Correct Best Gaze - 2: Normal Visual [place] - 3: No Visual Loss Facial Palsy - 4: N ormal Motor Arm Right - 5: No Drift Motor Arm Left - 5: No Drift Motor Leg Right - 6: No Drift Motor Leg Left - 6: Effort Against [place] Limb Ataxia - 7: Absent Sensory - 8: Mild To Moderate Loss Best Language - 9: N o Aphasia Dysarthia - 10: Normal Extinction And Inattention - 11: 0 Score: Total Score: 3 Physical Exam 2 Const: COMMON NORMALS: no acute distress, patient oriented x3 and healthy appearing HENMT: COMMON NORMALS: normocephalic and atraumatic HEAD & SCALP: n ormocephalic and atraumatic Neck/C-Spine: COMMON NORMALS: full ROM and supple Chest: COMMONS NORMALS: normal inspection of the chest Resp: COMMON NORMALS: normal respiratory effort, No retractions, No use of accessory muscles and clear to auscultation bilaterally AUSCULTATION: clear to auscultation bilaterally Cardio: COMMON NORMALS: regular rate, regular rhythm and No murmurs present (Cardio) RATE: regular rate RHYTHM: regular rhythm GI: COMMON NORMALS: Normal to inspection, nondistended, normoactive bowel sounds present, Soft to palpation, non-tender and no masses PALPATION: Yes Soft to palpation Extremity: COMMON NORMALS: full ROM NARRATIVE EXTREMITY EXAM: Left leg weakness noted Neuro: COMMON NORMALS: patient oriented x3, moves all extremities and no focal motor deficits Psych: COMMON NORMALS: mental status grossly normal, Normal thought process present and cooperative THOUGHT PROCESS: Normal thought process present Skin: COMMON NORMALS: no rashes or lesions noted and no wounds GENERAL SKIN EXAM: no rashes or lesions noted Course 2 Vital Signs: Vital signs: Vital Signs Temperature 97.8 F 01/24/24 08:43 Respiratory Rate 18 01/24/24 08:43 Blood Pressure 110/74 01/24/24 08:43 Pulse Oximetry 98 01/24/24 08:43 Oxygen Delivery Me thod Room Air 01/24/24 08:43 MDM - Neuro Symptoms/Deficit Medical Decision Making Patient presents here with possible stroke he does have left leg weakness he is not a lytic candidate as his last known normal was yesterday he does have a UTI as well I spoke to hospitalist will admit at this time. Medical Records I reviewed the patient's medical records. Lab Data I reviewed the patient's lab results. 01/24/24 08:50 01/24/24 08:50 Radiology Impressions Chest X-Ray 01/24/24 08:42 Impression: 1. No change in cardiac pacemaker. 2. Atherosclerosis. Head CT 01/24/24 08:42 IMPRESSION: 1. No acute intracranial hemorrhage or edema. 2. Moderate atrophy with severe small vessel ischemic disease. No new area of sulcal effacement or edema. Notified Nayana Aguilar MD at 01/24/2024 8:58 AM. Head/Neck CTA 01/24/24 08:42 IMPRESSION: 1. 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 Stenosis near 50 to 60%. No occlusions. No change since 06/22/2023. 2. 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 Calcified plaque and soft plaque narrowing the lumen. Similar to the prior study. 3. No significant stenosis LEFT cervical ICA. 4. Previously described LEFT M1 segment aneurysm is not identified today. This may be due to its small size. 5. Heavily diseased at with diminished enhancement of the RIGHT vertebral artery is chronic. Laboratory Results WBC 7.03 10^3/uL (3.29-11.43) 01/24/24 08:50 RBC 4.40 10^6/uL (3.85-5.65) 01/24/24 08:50 Hgb 14.30 g/dL (11.27-16.99) 01/24/24 08:50 Hct 41.5 % (37-53) 01/24/24 08:50 MCV 94.3 fl (82-101) 01/24/24 08:50 MCH 32.5 pg (27-33) 01/24/24 08:50 MCHC 34.5 g/dL (30-55) 01/24/24 08:50 RDW 12.8 % (12.1-15.1) 01/24/24 08:50 Plt Count 124 10^3/cmm (157-399) L 01/24/24 08:50 MPV 11.1 fL (7.4-10.4) H 01/24/24 08:50 Neut % (Auto) 68.8 % 01/24/24 08:50 Lymph % (Auto) 13.9 % 01/24/24 08:50 [place] % (Auto) 10.8 % 01/24/24 08:50 Eos % (Auto) 5.7 % 01/24/24 08:50 Baso % (Auto) 0.4 % 01/24/24 08:50 Neut # (Auto) 4.83 10^3/uL (1.8-7.7) 01/24/24 08:50 Lymph # (Auto) 1.0 10^3/uL (0.8-4.8) 01/24/24 08:50 [place] # (Auto) 0.8 10^3/uL (0.2-0.9) 01/24/24 08:50 Eos # (Auto) 0.4 10^3/uL (0.0-0.8) 01/24/24 08:50 Baso # (Auto) 0.0 10^3/uL (0.0-0.1) 01/24/24 08:50 Nucleated RBC % (auto) 0 % 01/24/24 08:50 Nucleated RBCs # 0.0 /100WBC 01/24/24 08:50 PT 14.50 SECONDS (12.1-14.9) 01/24/24 08:50 INR 1.09 (0.8-1.2) 01/24/24 08:50 APTT 31.5 SECONDS (23.9-36.7) 01/24/24 08:50 Sodium 137 mmol/L (136-145) 01/24/24 08:50 Potassium 4.0 mmol/L (3.5-5.1) 01/24/24 08:50 Chloride 104 mmol/L (98-107) 01/24/24 08:50 Carbon Dioxide 24 mmol/L (22-29) 01/24/24 08:50 Anion Gap 13.0 (5-19) 01/24/24 08:50 BUN 26 mg/dL (8-23) H 01/24/24 08:50 Creatinine 1.6 mg/dL (0.7-1.2) H 01/24/24 08:50 GFR Calculation Not Reportable 01/24/24 08:50 Glucose 130 mg/dL (65-115) H 01/24/24 08:50 POC Glucose 137 mg/dL (70-110) H 01/24/24 08:44 Calculated Osmolality 291 mOsm/kg (285-295) 01/24/24 08:50 Calcium 8.2 mg/dL (8.5-10.5) L 01/24/24 08:50 Total Bilirubin 0.5 mg/dL (0.15-1.2) 01/24/24 08:50 AST 15 U/L (0-40) 01/24/24 08:50 ALT 10 U/L (0-41) 01/24/24 08:50 Alkaline Phosphatase 93 U/L (40-130) 01/24/24 08:50 Total Protein 6.4 g/dL (6.6-8.7) L 01/24/24 08:50 Albumin 3.9 g/dL (3.5-5.2) 01/24/24 08:50 Globulin 2.5 g/dL (1.3-4.6) 01/24/24 08:50 Urine Color Yellow (Yellow) 01/24/24 10:20 Urine Appearance Clear (CLEAR) 01/24/24 10:20 Urine pH 6.0 (5-7) 01/24/24 10:20 Ur Specific [place] 1.039 (1.005-1.030) H 01/24/24 10:20 Urine Protein Negative (Negative) 01/24/24 10:20 Urine Glucose (UA) Negative (Normal) 01/24/24 10:20 Urine Ketones Negative (Negative) 01/24/24 10:20 Urine Blood Non-haemolysed trace (Negative) 01/24/24 10:20 Urine Nitrate Positive (Negative) A 01/24/24 10:20 Urine Bilirubin Negative (Negative) 01/24/24 10:20 Urine Urobilinogen 0.2 mg/dL (Negative) 01/24/24 10:20 Ur Leukocyte Esterase 3+ (Negative) A 01/24/24 10:20 Urine RBC 0-2 /hpf (0-2) 01/24/24 10:20 Urine WBC 51-100 /hpf (0-5) H 01/24/24 10:20 Ur Squamous Epith Cells 0-5 /hpf (0-5) 01/24/24 10:20 Amorphous Sediment Not Reportable 01/24/24 10:20 Urine Bacteria 4+ /hpf (NONE) H 01/24/24 10:20 Hyaline Casts 7.01 /lpf 01/24/24 10:20 Urine Opiates Screen Negative ng/mL (Negative) 01/24/24 10:20 Ur Barbiturates Screen Negative ng/mL (Negative) 01/24/24 10:20 Ur Phencyclidine Scrn Negative ng/mL (Negative) 01/24/24 10:20 Ur Amphetamines Screen Negative ng/mL (Negative) 01/24/24 10:20 U Benzodiazepines Scrn Negative ng/mL (Negative) 01/24/24 10:20 Urine Cocaine Screen Negative ng/mL (Negative) 01/24/24 10:20 U Marijuana (THC) Screen Negative ng/mL (Negative) 01/24/24 10:20 All radiology interpretation(s) finalized by discharge EKG Data EKG 1: I personally reviewed and interpreted this EKG as follows: EKG interpretation date: 01/24/24 EKG interpretation time: 09:13 Interpretation: paced hr [address] elevation qrs 173 qtc 500 Discharge Plan Discharge Patient Disposition: Admitted As Inpatient Clinical Impression: Cerebrovascular accident, Acute cystitis Condition: Stable Prescriptions: No Action docusate sodium 100 mg capsule 100 mg PO DAILY (DME) Walking Cane 4 prong See Rx Instructions .Route .MEDSUPPLY Qty: 1 0RF Rx Instructions: As directed meclizine 12.5 mg tablet 12.5 mg PO TID PRN (Reason: dizziness) Qty: 20 0RF Synthroid 50 mcg tablet 50 mcg PO QAM Qty: 90 3RF furosemide 20 mg tablet 20 mg PO .MON/SAT/SAT/SUN Qty: 90 3RF aspirin 81 mg Tablet,Chewable 81 mg PO QAM Qty: 90 3RF isosorbide mononitrate 30 mg tablet extended release 24 hr 15 mg PO DAILY Qty: 90 3RF carvedilol 25 mg tablet 12.5 mg PO BID finasteride 5 mg tablet 5 mg PO DAILY Men's Daily Formula 400-20-300 mcg Tablet 1 tab PO QAM amlodipine 5 mg tablet 5 mg PO QAM tamsulosin 0.4 mg capsule 0.4 mg PO QPM Referrals: Aicha Moran MD [Primary Care Provider] - Coding Level of Care Code ED [facility] for [facility]
[2024-01-24 10:42] LABS: Bilirubin Urine Negative (Negative); Blood Urine Non-haemolysed trace (Negative); Glucose Urine UA Negative (Normal); Ketones Urine Negative (Negative); Leukocyte Esterase Urine 3+ (Negative); Nitrate Urine Positive (Negative); Protein Urine Negative (Negative); Urine Appearance Clear (CLEAR); Urine Color Yellow (Yellow); Urobilinogen Urine 0.2 mg/dL (Negative)
[2024-01-24 10:44] LABS: Add Urine Microscopic? YES; Bacteria Urine 4+ /hpf; Hyaline Casts Urine 7.01 /lpf; RBC Urine 0-2 /hpf (0-2); Squamous Epithelial Cell Urine 0-5 /hpf (0-5); WBC Urine 51-100 /hpf (0-5)
[2024-01-24 10:47] LABS: Add Urine Culture? Yes; Specific Gravity, Urine 1.039 (1.005-1.030)
[2024-01-24 10:49] LABS: Amphetamines Screen Urine Negative (Negative); Barbiturates Screen Urine Negative (Negative); Benzodiazepines Screen Urine Negative (Negative); Cocaine Screen Urine Negative (Negative); Opiate Screen Urine Negative (Negative); PCP Screen Urine Negative (Negative); THC Screen Urine Negative (Negative)
[2024-01-24] MEDS: sodium chloride 0.9% 1,000 ML 999 ML IV (10:56)
[2024-01-24] MEDS: cefTRIAXone 1,000 mg SDV 1000 MG IVP (10:59)
--- NOTE | 2024-01-24 11:58 | PM.HP ---
Providers/Chief Complaint Admitting Physician: Drew Roe MD Primary Care Provider: Aicha Moran MD Chief Complaint: not able to use left side, state stroke History of Present Illness Eliza Grimm is a 83 year old male with past prior history of left-sided CVA affecting arm and leg, coronary artery disease with bypass surgery, TAVR, CKD urinary or transient with chronic catheter changed 4 days ago, other medical problems as listed presenting to the hospital with complaints of left lower extremity weakness. Symptom onset was yesterday, likely around 2 to 4 PM. He reports that since then his legs felt heavy, and it is harder to move. He denies any numbness or tingling. He reports his arm is moving fine, no speech problems. Son reports he occasionally complains of dizziness, ended last week. No headache, fever, ill contacts, blood in stool. He reports he has occasional chest discomfort, but this is normal for him and consistent with his past history of coronary disease. Son reports he seems to be thinking normally. Review of Systems General: Reports: 10 or more systems reviewed and unremarkable except in HPI and below Medications/Allergies Home Medications Medication Instructions Recorded Confirmed Last Taken Type aspirin 81 mg chewable tablet 81 mg PO QAM #90 tabs 12/25/21 01/24/24 01/24/24 Rx Walking Cane 4 prong #1 ea 02/07/22 01/24/24 Unknown Rx docusate sodium 100 mg capsule 100 mg PO DAILY 01/10/23 01/24/24 01/24/24 History levothyroxine 50 mcg tablet 50 mcg PO QAM #90 tabs 04/24/23 01/24/24 01/24/24 Rx (Synthroid) isosorbide mononitrate 30 mg 15 mg (1/2 x 30 mg) PO DAILY #90 06/24/23 01/24/24 01/24/24 Rx tablet,extended release 24 hr tabs meclizine 12.5 mg tablet 12.5 mg PO TID PRN dizziness #20 09/25/23 01/24/24 Unknown Rx tabs furosemide 20 mg tablet 20 mg PO .MON/SAT/SAT/SUN #90 tabs 09/27/23 01/24/24 01/24/24 Rx carvedilol 25 mg tablet 12.5 mg PO BID 01/16/24 01/24/24 01/24/24 History finasteride 5 mg tablet 5 mg PO DAILY 01/16/24 01/24/24 01/24/24 History amlodipine 5 mg tablet 5 mg PO QAM 01/24/24 01/24/24 01/24/24 History pomehnkz-lcnbyqky-fmpzy acid 400 1 tab PO QAM 01/24/24 01/24/24 01/24/24 History mcg-vit K 20 mcg-lycop 300 mcg tablet (Men's Daily Formula) tamsulosin 0.4 mg capsule 0.4 mg PO QPM 01/24/24 01/24/24 01/23/24 History Allergies Allergy/AdvReac Type Severity Reaction Status Date / Time rosuvastatin [From Crestor] Allergy Mild Makes me Verified 01/16/24 09:39 daria nitroglycerin Allergy Unknown Makes me Verified 01/16/24 09:39 wild amitriptyline AdvReac Made me Verified 01/16/24 09:39 weak and daria, wasn't thinking right rivaroxaban [From Xarelto] AdvReac black stool Verified 01/16/24 09:39 PFSH Acute PFSH: Medical History 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 Seborrheic keratoses Stroke Dizziness and giddiness Fatigue Dyslipidemia Diverticulosis Hiatal hernia History of pulmonary embolism History of Sindy-Kirk syndrome Chronic kidney disease Insomnia GERD (gastroesophageal reflux disease) Systolic congestive heart failure Thoracic aortic aneurysm CAD (coronary artery disease) Surgical History Status post transcatheter aortic valve replacement (TAVR) using bioprosthesis aortic stenosis History of drainage of abscess Percutaneous, right lower quadrant suspected appendiceal abscess History of cataract surgery Bilateral History of coronary artery stent placement Reports a total of 3 stents after her last CABG done in [facility] Dr. [facility] History of coronary artery bypass graft 1996 in 2010 -- 3 vessels total History of cholecystectomy Family History Mother Diabetes Stroke Father Gallbladder disease Brother Chronic kidney disease (CKD) Diabetes Denies family history of CAD (coronary artery disease) Clotting disorder Dementia Suicide Anesthesia complication Bleeding disorder Lung disease Cancer Social History Smoking and tobacco/nicotine status: unknown if used tobacco/nicotine Alcohol intake: never Substance/Drug Use: never Caregiver/support person: Yes Household members: spouse Vitals/I&O/Wt Last Vital Signs Temp 97.8 F 01/24/24 08:43 Resp 18 01/24/24 08:43 BP 110/74 01/24/24 08:43 Pulse Ox 98 01/24/24 08:43 O2 Del Method Room Air 01/24/24 08:43 Physical Exam Narrative: General exam is a conversant white male, no distress, son at bedside. He is alert and oriented. Neuro: NIHSS score of 4. Slight left facial droop. Left leg with mild ataxia, significant weakness left leg. Skin no rash HEENT: Atraumatic normocephalic Oropharynx clear Neck is supple Cardiovascular regular rate and rhythm with a 2/6 systolic murmur Lungs clear Abdomen soft, no obvious organomegaly. exam demonstrates [place], leg bag Skin no rash Neuro no focal deficits Data 01/24/24 08:50 01/24/24 08:50 Other Labs: INR is normal LFTs are normal Calcium 8.2, albumin 3.9 Urinalysis with 50-100 white blood cells, 3+ leukocyte esterace, 4+ bacteria Head and neck CTA demonstrated 50 to 60% stenosis, cavernous carotid arteries. 50% stenosis right cervical ICA, right vertebral artery heavily diseased and diminished enhancement. Overall this does not appear significantly changed from prior studies CT head which I also reviewed demonstrates no acute changes. Ventricles large as expected with atrophy. EKG demonstrates atrial paced beats, and ventricularly paced beats. I reviewed this as well. A&P Assessment and plan (1) Cerebrovascular accident: Patient has CVA, with left lower extremity weakness, with NIHSS score of 4, that occurred yesterday CTA demonstrates no acute occlusion. Carotid disease is noted similar to previous CTA CT head no acute findings Patient had previous stroke on the left, with left upper and left lower extremity weakness. This for the most part had improved according to the patient, but his exact baseline is unknown. I admitted him for a similar occurrence, and noted 3/4/5 strength at that time. Check echocardiogram Telemetry Therapy consultations Currently no evidence of any swallowing difficulty. Permissive hypertension with holding amlodipine and carvedilol currently. Likely carvedilol will need added back tomorrow. Initiate statin (2) Acute cystitis: Patient appears to have acute cystitis As he has an indwelling catheter that was changed 4 days ago, urine may just be contaminated. However, with neurologic change we will go ahead and treat with Rocephin and await culture. (3) CAD (coronary artery disease): Patient with history of significant coronary disease with history of coronary artery bypass grafting x 2, and TAVR. He also has a defibrillator. He has known ischemic cardiomyopathy with an EF around 35 to 40% on last echo Continue his aspirin, add Plavix, add statin, continue Imdur. Hold beta-jake, briefly secondary to permissive hypertension secondary to CVA Echocardiogram will be obtained, secondary to CVA. Hold his Lasix currently, to allow for improved hydration with his CVA. Qualifiers: Coronary Disease-Associated Artery/Lesion type: bypass graft [place] vs. transplanted heart: [place] Associated angina: without angina Qualified Code(s): I25.810 - Atherosclerosis of coronary artery bypass graft(s) without angina pectoris Plan Hypothyroidism, check TSH Multiple other medical problems as outlined in past medical history Allow natural , discussed with patient and family Heparin for DVT prophylaxis considering chronic kidney disease Attestations Medical Necessity Statement*: Will need less than 2 midnight stay for evaluation and treatment of left lower extremity weakness Diagnoses Cerebrovascular accident I63.9 Acute cystitis N30.00 Coronary artery disease involving coronary bypass graft of [place] heart without angina pectoris I25.810 Coronary Disease-Associated Artery/Lesion type: bypass graft [place] vs. transplanted heart: [place] heart Associated angina: without angina Time Spent (min) 46
[2024-01-24] MEDS: clopidogrel 75 mg Tablet PO (13:22)
[2024-01-24 13:45] LABS: Thyroid Stimulating Hormone 3.75 uIU/mL (0.27-4.20)
[2024-01-24] MEDS: tamsulosin 0.4 mg Capsule PO (17:39)
[2024-01-24] MEDS: heparin 5,000 unit/mL INJ 1 mL 5000 UNIT SUBCUT (17:40)
--- NOTE | 2024-01-24 18:19 | PC.NURSE ---
SCD contraindicated d/t patient being up ad nicholas. SCDs will create a fall risk for patient.
[2024-01-24] MEDS: atorvastatin 40 mg Tablet PO (20:55)
[2024-01-25 02:36] VITALS: BP 144/81; PULSE 68; RESP 16; TEMP 36.6; O2SAT 93
[2024-01-25 03:23] LABS: Chol HDL Ratio 3.95 mg/dL (1.0-5.00); Cholesterol 150 mg/dL (0-200); HDL Cholesterol 38 mg/dL (60-100); LDL Cholesterol Calculated 97 mg/dL (50-129); LDL HDL Ratio 2.55 RATIO (0.00-3.22); Triglycerides 77 mg/dL (0-150)
[2024-01-25] MEDS: levothyroxine 50 mcg Tablet PO (05:16)
[2024-01-25] MEDS: aspirin 81 mg Chew Tablet PO (05:16)
[2024-01-25] MEDS: heparin 5,000 unit/mL INJ 1 mL 5000 UNIT SUBCUT (05:16)
[2024-01-25 05:25] VITALS: BP 161/88; PULSE 65; RESP 17; TEMP 36.5; O2SAT 97
[2024-01-25 05:38] VITALS: PULSE 63
[2024-01-25 06:00] VITALS: BMI 24.9
--- NOTE | 2024-01-25 06:24 | USCV_ITS ---
Sirisha, Eliza Age: 83 Gender: M : 1940 Exam Date: 01/25/2024 12:21 Ordering Phys: Drew Roe MD Technologist: IDALIA [place]am [place] [facility] [place]: cva BP: 124 / 78 HR: 59 Rhythm: Sinus Technical Quality: Adequate MEASUREMENTS (Male / Female) Normal Values 2D ECHO LV Diastolic Diameter PLAX 4.4 cm 4.2 - 5.9 / 3.9 - 5.3 cm IVS Diastolic Thickness 1.4 cm 0.6 - 1.0 / 0.6 - 0.9 cm IVS Systolic Thickness 1.6 cm LVPW Diastolic Thickness 1.6 cm 0.6 - 1.0 / 0.6 - 0.9 cm LVPW Systolic Thickness 1.6 cm LVOT Diameter 2.0 cm LV Ejection Fraction 2D Teich 45.8 % LV Ejection Fraction MOD 4C 48.7 % LA Diameter 5.5 cm RA Systolic Volume 4C AL 40.9 ml RA Systolic Volume 4C MOD 41.5 ml LA Sys Volume AL 58.3 cm cubed LA Sys Volume Index AL 27.7 cm cubed/m squared Aorta at Sinotubular Diameter 2.6 cm M-MODE LA Ao Ratio MM 1.2 AV Cusp Separation MM 1.1 cm DOPPLER AV Peak Velocity 243.0 cm/s LVOT Peak Velocity 81.0 cm/s AV Area Cont Eq vti 1.1 cm squared AV Area Cont Eq pk 1.1 cm squared MV Peak Velocity 116.0 cm/s MV Area PHT 2.9 cm squared Mitral E to A Ratio 0.4 TV Peak Velocity 234.5 cm/s TR Peak Velocity 266.0 cm/s TR Peak Gradient 28.3 mmHg TR Mean Velocity 217.0 cm/s TR Mean Gradient 20.4 mmHg TR Velocity Time Integral 60.4 cm PV Peak Velocity 95.0 cm/s RV Ejection Time 0.3 s FINDINGS Left Ventricle Diffuse hypokinesis of the left ventricular ejection fraction of 40 %.((visual) ). Moderate concentric left trickle hypertrophy. Severe hypokinesia of the basal inferior wall segment.Grade I/IV diastolic dysfunction (abnormal relaxation filling pattern), normal to mildly elevated filling pressures. Right Ventricle Catheter/pacemaker wire in the right ventricular cavity. Right Atrium Catheter/pacemaker wire in the right atrial appendage. Left Atrium Mildly increased left atrial size. Mitral Valve Thickened mitral valve. Mild mitral valve regurgitation. Aortic Valve The bioprosthetic valve the aortic position appears to be well- seated. Peak velocity across the valve is 2.43 m/s with a valve area calculated calculated valve area 1.1 cm squared. Tricuspid Valve Thickened tricuspid valve. Pulmonic Valve Pulmonic valve not well visualized. Pericardium No pericardial effusion. Aorta Normal aortic annulus size. IVC Inferior vena cava not visualized. CONCLUSIONS Diffuse hypokinesis of the left ventricular ejection fraction of 40 %, visual. Moderate concentric left trickle hypertrophy. Severe hypokinesia of the basal inferior wall segment.Grade I/IV diastolic dysfunction (abnormal relaxation filling pattern), normal to mildly elevated filling pressures. Mildly increased left atrial size. Pacemaker/defibrillator wire in the right atrium/right ventricle. The bioprosthetic valve the aortic position appears to be well- seated. Peak velocity across the valve is 2.43 m/s with a valve area calculated calculated valve area 1.1 cm squared. There is no pericardial effusion. Compared to the study from 06/21/2023, there may not be a significant change Dr Troy Evans MD FAC (Electronically Signed) Final Date: 25 January 2024 22:27 S
[2024-01-25 07:42] VITALS: BP 153/84; PULSE 58; TEMP 36.9; O2SAT 91
[2024-01-25] MEDS: finasteride 5 mg Tablet PO (09:25)
[2024-01-25] MEDS: isosorbide mononitrate ER 30 mg Tablet 15 MG PO (09:25)
[2024-01-25] MEDS: clopidogrel 75 mg Tablet PO (09:25)
[2024-01-25] MEDS: docusate sodium 100 mg Capsule PO (09:26)
[2024-01-25 11:00] VITALS: BP 124/78; PULSE 56; TEMP 36.4; O2SAT 95
[2024-01-25] MEDS: cefTRIAXone 1,000 mg SDV 1000 MG IVP (11:46)
--- NOTE | 2024-01-25 13:06 | P.DS_ITS ---
Discharge Providers Date of Admission: 01/24/24 15:28 Date of Discharge: January 25, 2024 Attending Provider at Admission: Drew Roe MD Attending Provider at Discharge: Ramona Quijano MD Primary Care Provider: Aicha Moran MD Diagnoses at Discharge Discharge Diagnosis (1) Cerebrovascular accident: Status: Acute (2) Acute cystitis: Status: Acute (3) CAD (coronary artery disease): Status: Acute Qualifiers: Coronary Disease-Associated Artery/Lesion type: bypass graft [place] vs. 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 He reports that since then his legs felt heavy, and it is harder to move. He denies any numbness or tingling. He reports his arm is moving fine, no speech problems. NIHSS 4 upon admission. CTA demonstrates no acute occlusion. Carotid disease is noted similar to previous CTA CT head no acute findings. He was evaluated by physical therapy, Occupational Therapy and speech therapy and did well. His symptoms remain at baseline. Patient does have some residual left upper and lower extremity weakness. Permissive hypertension was allowed with holding amlodipine and carvedilol, of which carvedilol is being resumed at the time of discharge. Patient was also diagnosed to have acute cystitis with urine culture growing gram-negative rods. He is presumptively being discharged with levofloxacin for the same, recommended to follow-up with primary care physician within 4 to 5 days of discharge to follow-up on final urine cultures and assess appropriate nests of empiric antibiotic selection. An echocardiogram has been taken, remains pending at the time of discharge. Patient is eager to return home today and given overall clinical stability no contraindication for discharge at this point in time. Physical Exam Narrative: General: No acute distress, AO x3 HEENT: PERRLA, pupils bilaterally equal and reactive, pallors not present Chest: Normal vesicular breath sounds, no added sounds, equal good air entry yasemin aterally CVS: S1-S2 regular, no murmurs, no tachycardia, no gallops, no rubs Abdomen: Soft, nontender, no organomegaly, bowel sounds present Neuro: Left upper and lower extremity weakness no facial deformity, AO x3, power 5/5 in all limbs Discharge Data Studies Completed and Pending Completed Studies During Hospitalization Category Date Time Status CT angio headneck* [id number] Stat Cat Scan 01/24/24 08:[address] head thrombolytic [id number] Stat Cat Scan 01/24/24 08:42 Completed XR chest 1V portable [id number] Stat Exams 01/24/24 08:42 Completed Pending at discharge Category Date Time Status CMP [Comprehensive Metabolic Panel] AM LABS Lab 01/26/24 04:00 Ordered Complete Blood Count w/Auto AM LABS Lab 01/26/24 04:00 Ordered Urine Culture Stat Lab 01/24/24 10:20 Results CV. echo complete* [id number] Routine Ultrasound 01/25/24 06:24 Taken Radiology Impressions Chest X-Ray 01/24/24 08:42 Impression: 1. No change in cardiac pacemaker. 2. Atherosclerosis. Head CT 01/24/24 08:42 IMPRESSION: 1. No acute intracranial hemorrhage or edema. 2. Moderate atrophy with severe small vessel ischemic disease. No new area of sulcal effacement or edema. Notified Nayana Aguilar MD at 01/24/2024 8:58 AM. Head/Neck CTA 01/24/24 08:42 IMPRESSION: 1. 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 Stenosis near 50 to 60%. No occlusions. No change since 06/22/2023. 2. 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 Calcified plaque and soft plaque narrowing the lumen. Similar to the prior study. 3. No significant stenosis LEFT cervical ICA. 4. Previously described LEFT M1 segment aneurysm is not identified today. This may be due to its small size. 5. Heavily diseased at with diminished enhancement of the RIGHT vertebral artery is chronic. Laboratory Results WBC 7.03 10^3/uL (3.29-11.43) 01/24/24 08:50 RBC 4.40 10^6/uL (3.85-5.65) 01/24/24 08:50 Hgb 14.30 g/dL (11.27-16.99) 01/24/24 08:50 Hct 41.5 % (37-53) 01/24/24 08:50 MCV 94.3 fl (82-101) 01/24/24 08:50 MCH 32.5 pg (27-33) 01/24/24 08:50 MCHC 34.5 g/dL (30-55) 01/24/24 08:50 RDW 12.8 % (12.1-15.1) 01/24/24 08:50 Plt Count 124 10^3/cmm (157-399) L 01/24/24 08:50 MPV 11.1 fL (7.4-10.4) H 01/24/24 08:50 Neut % (Auto) 68.8 % 01/24/24 08:50 Lymph % (Auto) 13.9 % 01/24/24 08:50 [place] % (Auto) 10.8 % 01/24/24 08:50 Eos % (Auto) 5.7 % 01/24/24 08:50 Baso % (Auto) 0.4 % 01/24/24 08:50 Neut # (Auto) 4.83 10^3/uL (1.8-7.7) 01/24/24 08:50 Lymph # (Auto) 1.0 10^3/uL (0.8-4.8) 01/24/24 08:50 [place] # (Auto) 0.8 10^3/uL (0.2-0.9) 01/24/24 08:50 Eos # (Auto) 0.4 10^3/uL (0.0-0.8) 01/24/24 08:50 Baso # (Auto) 0.0 10^3/uL (0.0-0.1) 01/24/24 08:50 Nucleated RBC % (auto) 0 % 01/24/24 08:50 Nucleated RBCs # 0.0 /100WBC 01/24/24 08:50 PT 14.50 SECONDS (12.1-14.9) 01/24/24 08:50 INR 1.09 (0.8-1.2) 01/24/24 08:50 APTT 31.5 SECONDS (23.9-36.7) 01/24/24 08:50 Sodium 137 mmol/L (136-145) 01/24/24 08:50 Potassium 4.0 mmol/L (3.5-5.1) 01/24/24 08:50 Chloride 104 mmol/L (98-107) 01/24/24 08:50 Carbon Dioxide 24 mmol/L (22-29) 01/24/24 08:50 Anion Gap 13.0 (5-19) 01/24/24 08:50 BUN 26 mg/dL (8-23) H 01/24/24 08:50 Creatinine 1.6 mg/dL (0.7-1.2) H 01/24/24 08:50 GFR Calculation Not Reportable 01/24/24 08:50 Glucose 130 mg/dL (65-115) H 01/24/24 08:50 POC Glucose 137 mg/dL (70-110) H 01/24/24 08:44 Calculated Osmolality 291 mOsm/kg (285-295) 01/24/24 08:50 Calcium 8.2 mg/dL (8.5-10.5) L 01/24/24 08:50 Total Bilirubin 0.5 mg/dL (0.15-1.2) 01/24/24 08:50 AST 15 U/L (0-40) 01/24/24 08:50 ALT 10 U/L (0-41) 01/24/24 08:50 Alkaline Phosphatase 93 U/L (40-130) 01/24/24 08:50 Total Protein 6.4 g/dL (6.6-8.7) L 01/24/24 08:50 Albumin 3.9 g/dL (3.5-5.2) 01/24/24 08:50 Globulin 2.5 g/dL (1.3-4.6) 01/24/24 08:50 Triglycerides 77 mg/dL (0-150) 01/25/24 02:46 Cholesterol 150 mg/dL (0-200) 01/25/24 02:46 LDL Cholesterol, Calc 97 mg/dL (50-129) 01/25/24 02:46 HDL Cholesterol 38 mg/dL (60-100) L 01/25/24 02:46 LDL/HDL Ratio 2.55 RATIO (0.00-3.22) 01/25/24 02:46 Cholesterol/HDL Ratio 3.95 mg/dL (1.0-5.00) 01/25/24 02:46 TSH 3.75 uIU/mL (0.27-4.20) 01/24/24 08:50 Urine Color Yellow (Yellow) 01/24/24 10:20 Urine Appearance Clear (CLEAR) 01/24/24 10:20 Urine pH 6.0 (5-7) 01/24/24 10:20 Ur Specific [place] 1.039 (1.005-1.030) H 01/24/24 10:20 Urine Protein Negative (Negative) 01/24/24 10:20 Urine Glucose (UA) Negative (Normal) 01/24/24 10:20 Urine Ketones Negative (Negative) 01/24/24 10:20 Urine Blood Non-haemolysed trace (Negative) 01/24/24 10:20 Urine Nitrate Positive (Negative) A 01/24/24 10:20 Urine Bilirubin Negative (Negative) 01/24/24 10:20 Urine Urobilinogen 0.2 mg/dL (Negative) 01/24/24 10:20 Ur Leukocyte Esterase 3+ (Negative) A 01/24/24 10:20 Urine RBC 0-2 /hpf (0-2) 01/24/24 10:20 Urine WBC 51-100 /hpf (0-5) H 01/24/24 10:20 Ur Squamous Epith Cells 0-5 /hpf (0-5) 01/24/24 10:20 Amorphous Sediment Not Reportable 01/24/24 10:20 Urine Bacteria 4+ /hpf (NONE) H 01/24/24 10:20 Hyaline Casts 7.01 /lpf 01/24/24 10:20 Urine Opiates Screen Negative ng/mL (Negative) 01/24/24 10:20 Ur Barbiturates Screen Negative ng/mL (Negative) 01/24/24 10:20 Ur Phencyclidine Scrn Negative ng/mL (Negative) 01/24/24 10:20 Ur Amphetamines Screen Negative ng/mL (Negative) 01/24/24 10:20 U Benzodiazepines Scrn Negative ng/mL (Negative) 01/24/24 10:20 Urine Cocaine Screen Negative ng/mL (Negative) 01/24/24 10:20 U Marijuana (THC) Screen Negative ng/mL (Negative) 01/24/24 10:20 Vitals Last Vital Signs Temp 97.6 F 01/25/24 11:00 Pulse 56 L 01/25/24 11:00 Resp 17 01/25/24 05:25 BP 124/78 01/25/24 11:00 Pulse Ox 95 01/25/24 11:00 O2 Del Method Room Air 01/25/24 11:00 Discharge Plan Discharge Patient Disposition: Home Condition: Stable Prescriptions: New atorvastatin 40 mg Tablet 40 mg PO BEDTIME 30 Days Qty: 30 0RF clopidogrel 75 mg Tablet 75 mg PO DAILY 14 Days Qty: 14 0RF levofloxacin 500 mg tablet 500 mg PO DAILY 5 Days Qty: 5 0RF Continued docusate sodium 100 mg capsule 100 mg PO DAILY meclizine 12.5 mg tablet 12.5 mg PO TID PRN (Reason: dizziness) Qty: 20 0RF Synthroid 50 mcg tablet 50 mcg PO QAM Qty: 90 3RF furosemide 20 mg tablet 20 mg PO .MON/WED/FRI/SUN Qty: 90 3RF aspirin 81 mg Tablet,Chewable 81 mg PO QAM Qty: 90 3RF isosorbide mononitrate 30 mg tablet extended release 24 hr 15 mg PO DAILY Qty: 90 3RF carvedilol 25 mg tablet 12.5 mg PO BID finasteride 5 mg tablet 5 mg PO DAILY Men's Daily Formula 400-20-300 mcg Tablet 1 tab PO QAM tamsulosin 0.4 mg capsule 0.4 mg PO QPM Held amlodipine 5 mg tablet 5 mg PO QAM Hold Instructions: Resume on 01/28/24. No Action (DME) Walking Cane 4 prong See Rx Instructions .Route .MEDSUPPLY Qty: 1 0RF Rx Instructions: As directed Discharge Orders: Discharge Order (Routine); Ordered 01/25/24 Ordered By: Ramona Quijano Referrals: Aicha Moran MD [Primary Care Provider] - 4-7 days Discharge Diet: Cardiac Discharge Activity: Increase activity as tolerated and As per PT/OT instructions Patient Instructions: Opioid Safety Discharge Attestations Time Spent in Discharge Care*: greater than 30 min Quality Metrics Clinical Quality Measures [ Cerebrovascular Accident { Contraindication to Antithrombotic: Other; Contraindication to Anticoagulation: Overlap treatment not indicated; Contraindication to Statin: None; Statin prescribed;}] Coding Level of Care Code Acute Code for [facility] Diagnoses Cerebrovascular accident I63.9 Acute cystitis N30.00 Coronary artery disease involving coronary bypass graft of [place] heart without angina pectoris I25.810 Coronary Disease-Associated Artery/Lesion type: bypass graft [place] vs. transplanted heart: [place] heart Associated angina: without angina
--- NOTE | 2024-01-25 14:56 | PC.NURSE ---
Talked to patient's son Anant at this time and he said that he could be here in 2O minutes.
[2024-01-25 15:56] VITALS: BP 124/78; PULSE 56; RESP 12; TEMP 36.4; O2SAT 93
== END 2024-01-25 15:57 | disposition home or self-care (01) ==
LOC: ER 11:02 → MEDSURG 15:29
PROVIDERS: Admitting Provider Internal Medicine; Emergency Provider Emergency Medicine; PCP Family Medicine; Visit Provider Student in an Organized Health Care Education/Training Program
DX: I63.9 Cerebral infarction, unspecified (principal); R29.703 NIHSS score 3; N30.00 Acute cystitis without hematuria; I25.810 Atherosclerosis of coronary artery bypass graft(s) without angina pectoris; Z86.73 Personal history of transient ischemic attack (TIA), and cerebral infarction without residual deficits; I25.10 Atherosclerotic heart disease of native coronary artery without angina pectoris; N18.9 Chronic kidney disease, unspecified; I50.20 Unspecified systolic (congestive) heart failure; Z79.82 Long term (current) use of aspirin; E78.5 Hyperlipidemia, unspecified; E03.9 Hypothyroidism, unspecified
CPT/HCPCS: 36415; 36416; 70450; 70496; 70498; 71045; 80053; 80061; 80306; 81001; 82962; 84443; 85025; 85610; 85730; 87086; 87186; 92523; 92610; 93005; 93306; 96361; 96372; 96374; 96376; 97116; 97161; 97165; 99285; G0378; J0696; J1644; J7030

== ENCOUNTER 2024-01-27 07:54 | Emergency (ER) | payer MEDICARE, SELFPAY ==
[2024-01-27 08:02] VITALS: BP 168/95; PULSE 64; RESP 20; TEMP 36.4; O2SAT 97; BMI 23.7
--- NOTE | 2024-01-27 08:50 | W.ED.GENADLT ---
HPI - General Adult General: Chief complaint: General Medical Stated complaint: cath problems Time Seen by Provider: 01/27/24 08:14 History of Present Illness: 83-year-old male presents to the emergency room with difficulty with his Cutler catheter. Patient with episodes of acute urinary retention required a Cutler catheter placement. He has a regular Cutler bag instead of a leg bag bag was damaged in the course of usual activities has a small tear and has been leaking him. He is otherwise having no other problems or difficulties. Related Data Home Medications Medication Instructions Recorded Confirmed docusate sodium 100 mg capsule 100 mg PO DAILY 01/10/23 01/27/24 carvedilol 25 mg tablet 12.5 mg PO BID 01/16/24 01/27/24 finasteride 5 mg tablet 5 mg PO DAILY 01/16/24 01/27/24 amlodipine 5 mg tablet 5 mg PO QAM 01/24/24 01/27/24 winibxbb-uahngqag-xaxzz acid 400 1 tab PO QAM 01/24/24 01/27/24 mcg-vit K 20 mcg-lycop 300 mcg tablet (Men's Daily Formula) tamsulosin 0.4 mg capsule 0.4 mg PO QPM 01/24/24 01/27/24 Previous Rx's Medication Instructions Recorded aspirin 81 mg chewable tablet 81 mg PO QAM #90 tabs 12/25/21 levothyroxine 50 mcg tablet 50 mcg PO QAM #90 tabs 04/24/23 (Synthroid) isosorbide mononitrate 30 mg 15 mg (1/2 x 30 mg) PO DAILY #90 06/24/23 tablet,extended release 24 hr tabs meclizine 12.5 mg tablet 12.5 mg PO TID PRN dizziness #20 09/25/23 tabs furosemide 20 mg tablet 20 mg PO .MON/SAT/SAT/SUN #90 tabs 09/27/23 atorvastatin 40 mg tablet 40 mg PO BEDTIME 30 days #30 tabs 01/25/24 clopidogrel 75 mg tablet 75 mg PO DAILY 14 days #14 tabs 01/25/24 levofloxacin 500 mg tablet 500 mg PO DAILY 5 days #5 tabs 01/25/24 Allergies Allergy/AdvReac Type Severity Reaction Status Date / Time rosuvastatin [From Crestor] Allergy Mild Makes me Verified 01/27/24 08:14 daria nitroglycerin Allergy Unknown Makes me Verified 01/27/24 08:14 wild amitriptyline AdvReac Made me Verified 01/27/24 08:14 weak and daria, wasn't thinking right rivaroxaban [From Xarelto] AdvReac black stool Verified 01/27/24 08:14 Review of Systems Const: Denies: fever(s) or chills PFSH ED PFSH: Medical History 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 Seborrheic keratoses Stroke Dizziness and giddiness Fatigue Dyslipidemia Diverticulosis Hiatal hernia History of pulmonary embolism History of Sindy-Kirk syndrome Chronic kidney disease Insomnia GERD (gastroesophageal reflux disease) Systolic congestive heart failure Thoracic aortic aneurysm CAD (coronary artery disease) Surgical History Status post transcatheter aortic valve replacement (TAVR) using bioprosthesis aortic stenosis History of drainage of abscess Percutaneous, right lower quadrant suspected appendiceal abscess History of cataract surgery Bilateral History of coronary artery stent placement Reports a total of 3 stents after her last CABG done in [facility] Dr. [facility] 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 History of cholecystectomy Family History Mother Diabetes Stroke Father Gallbladder disease Brother Chronic kidney disease (CKD) Diabetes Denies family history of CAD (coronary artery disease) Clotting disorder Dementia Suicide Anesthesia complication Bleeding disorder Lung disease Cancer Social History Smoking and tobacco/nicotine status: unknown if used tobacco/nicotine Alcohol intake: never Substance/Drug Use: never Caregiver/support person: Yes Household members: spouse Physical Exam Const: COMMON NORMALS: no acute distress GENERAL APPEARANCE: cooperative and comfortable ORIENTATION/CONSCIOUSNESS: Yes awake Course Vital Signs: Vital signs: Vital Signs Temperature 97.5 F L 01/27/24 08:02 Pulse Rate 64 01/27/24 08:02 Respiratory Rate 20 H 01/27/24 08:02 Blood Pressure 168/95 01/27/24 08:02 Pulse Oximetry 97 01/27/24 08:02 Oxygen Delivery Me thod Room Air 01/27/24 08:02 MDM - General Adult Medical Decision Making Cutler catheter bag was changed out to a leg bag. Nursing staff demonstrated to family how to make connections between the bag and the tubing. Will discharge the patient home with a leg bag I also gave him a prescription if he has further problems with the tubing or the bag itself he can have this replaced at home health with using the prescription. If there is an actual problem with the Cutler itself where it enters the penis to the bladder advised him they could return to the emergency room and we would reevaluate that. Follow-up with urology as scheduled Medical Records I reviewed the patient's medical records. No radiology studies performed this visit Discharge Plan Discharge Patient Disposition: Home Clinical Impression: Acute urinary retention, Complication of Cutler catheter Condition: Stable Prescriptions: No Action docusate sodium 100 mg capsule 100 mg PO DAILY meclizine 12.5 mg tablet 12.5 mg PO TID PRN (Reason: dizziness) Qty: 20 0RF Synthroid 50 mcg tablet 50 mcg PO QAM Qty: 90 3RF furosemide 20 mg tablet 20 mg PO .MON/SAT/SAT/SUN Qty: 90 3RF aspirin 81 mg Tablet,Chewable 81 mg PO QAM Qty: 90 3RF isosorbide mononitrate 30 mg tablet extended release 24 hr 15 mg PO DAILY Qty: 90 3RF carvedilol 25 mg tablet 12.5 mg PO BID finasteride 5 mg tablet 5 mg PO DAILY Men's Daily Formula 400-20-300 mcg Tablet 1 tab PO QAM amlodipine 5 mg tablet 5 mg PO QAM Hold Instructions: Resume on 01/28/24. tamsulosin 0.4 mg capsule 0.4 mg PO QPM atorvastatin 40 mg Tablet 40 mg PO BEDTIME 30 Days Qty: 30 0RF clopidogrel 75 mg Tablet 75 mg PO DAILY 14 Days Qty: 14 0RF levofloxacin 500 mg tablet 500 mg PO DAILY 5 Days Qty: 5 0RF Discharge Orders: Discharge ED (Routine); Ordered 01/27/24 Ordered By: Alex Vyas Referrals: Aicha Moran MD [Primary Care Provider] - Patient Instructions: Opioid Safety, Pain Management Coding Level of Care Code ED University Controller for [facility]
[2024-01-27 09:00] VITALS: BP 155/96; PULSE 67; O2SAT 98
[2024-01-27 09:34] VITALS: BP 155/96; PULSE 61; O2SAT 98
== END 2024-01-27 09:36 | disposition home or self-care (01) ==
PROVIDERS: Emergency Provider Family Medicine; PCP Family Medicine
DX: T83.091A Other mechanical complication of indwelling urethral catheter, initial encounter (principal); Z79.02 Long term (current) use of antithrombotics/antiplatelets; R33.9 Retention of urine, unspecified; Z95.810 Presence of automatic (implantable) cardiac defibrillator; N18.9 Chronic kidney disease, unspecified; I25.10 Atherosclerotic heart disease of native coronary artery without angina pectoris; E78.5 Hyperlipidemia, unspecified; Z86.73 Personal history of transient ischemic attack (TIA), and cerebral infarction without residual deficits; X58.XXXA Exposure to other specified factors, initial encounter
CPT/HCPCS: 99283

== ENCOUNTER 2024-02-28 09:30 | Outpatient (CLI) | payer MEDICARE, SELFPAY ==
[2024-02-28 10:31] VITALS: BMI 22.4
--- NOTE | 2024-02-28 10:34 | NMCV_ITS ---
NM rodriguez perf SPECT r/s* [id number] Surface, Eliza Age: 83 Gender: M : 1940 Exam Date: 02/28/2024 10:42 Ordering Phys: Russell Herzog M.D ([email or web address]) Technologist: CLARK Balderas Exam Location: [facility] Indications: cp STRESS TEST [facility] IMAGE PROTOCOL Rest/Stress 1 Lexiscan Day Radiopharmaceutical Dose (mCi) Administration Site Administered by Rest: Tc-99m 10.6 IV CLARK Balderas Sestamibi Stress:Tc-99m 32.4 IV Elvia Caballero, PHYSIATRIST Sestamibi Rest: 28-Feb-2024 60 Discovery 630 Stress: 28-Feb-2024 30 Discovery 630 0.4mg Lexiscan. Supine position only as patient was unable to lay prone. SPECT RESULTS Technical Quality: Good Raw Data Analysis: Normal Image Corrections: No attenuation or motion correction applied Summed Stress Score: 29 Summed Rest Score: 27 Summed Difference Score: 2 PERFUSION FINDINGS Large areas of mostly fixed perfusion defect seen in apical, inferolateral, anterolateral and inferior mart. This is consistent with large areas of prior infarct with minimal hui-infarct ischemia in distribution of left circumflex artery territory and large areas of prior infarcts in LAD and RCA territories. FUNCTIONAL RESULTS (calculated via Gated SPECT) Stress Image LV EF (%): 37 Stress EDV (mL):177 TID: 0.98 Stress ESV (mL):112 FUNCTIONAL FINDINGS: LV systolic function is moderately reduced with EF of 37% IMPRESSIONS 1. Abnormal myocardial perfusion imaging with large area of prior infarct with minimal hui-infarct ischemia seen in left circumflex artery territory. 2. Large areas of prior infarct seen in LAD and RCA territories 3. LV systolic function is moderately reduced with EF of 37% Russell Herzog MD (Electronically Signed) Final Date: 28 February 2024 13:37 S
--- NOTE | 2024-02-28 10:34 | ECG_ITS ---
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
[2024-02-28] MEDS: regadenoson 0.4 Mg/5 ml Syringe IVP (11:13)
[2024-02-28] MEDS: ondansetron 2 mg/ML SDV 2 mL 4 MG IVP (11:21)
[2024-02-28] MEDS: aminophylline 25 mg/mL SDV 20 mL IVP (11:24)
[2024-02-28 11:40] VITALS: BP 107/71; PULSE 60
== END 2024-02-28 09:31 | disposition home or self-care (01) ==
LOC: CDL 09:35
PROVIDERS: PCP Family Medicine; Visit Provider Internal Medicine
DX: R07.9 Chest pain, unspecified (principal); R06.02 Shortness of breath; R94.39 Abnormal result of other cardiovascular function study; I50.30 Unspecified diastolic (congestive) heart failure; I51.7 Cardiomegaly; Z95.0 Presence of cardiac pacemaker; Z95.2 Presence of prosthetic heart valve
CPT/HCPCS: 36415; 78452; 93017; 96374; 96375; A9500; J0280; J2405; J2785

== ENCOUNTER 2024-02-28 14:44 | Outpatient (CLI) | payer MEDICARE, SELFPAY ==
--- NOTE | 2024-02-28 15:00 | USCV_ITS ---
Surface, Eliza Age: 83 Gender: M : 1940 Exam Date: 02/28/2024 15:40 Ordering Phys: Russell Herzog M.D ([email or web address]) Technologist: CT Exam Location: [facility] Indication: Pre op BP: 136 / 88 HR: 58 Rhythm: Sinus Technical Quality: Adequate MEASUREMENTS (Male / Female) Normal Values 2D ECHO LVOT Diameter 2.0 cm LV Ejection Fraction MOD 4C 39.6 % LV Ejection Fraction MOD 2C 56.3 % LV Ejection Fraction 2C AL 54.8 % LA Diameter 4.7 cm RA Systolic Volume 4C AL 30.9 ml RA Systolic Volume 4C MOD 31.0 ml LA Sys Volume AL 55.6 cm cubed LA Sys Volume Index AL 27.3 cm cubed/m squared Aorta at Sinotubular Diameter 2.6 cm M-MODE LA Ao Ratio MM 1.8 DOPPLER AV Peak Velocity 258.0 cm/s LVOT Peak Velocity 109.0 cm/s AV Area Cont Eq vti 1.9 cm squared AV Area Cont Eq pk 1.4 cm squared MV Peak Velocity 109.0 cm/s MV Area PHT 2.2 cm squared Mitral E to A Ratio 0.6 TR Peak Velocity 227.5 cm/s TR Peak Gradient 20.7 mmHg TR Mean Velocity 151.0 cm/s TR Mean Gradient 11.3 mmHg TR Velocity Time Integral 46.9 cm TV Peak E Velocity 79.0 cm/s PV Peak Velocity 77.0 cm/s FINDINGS Left Ventricle Left ventricle is dilated. LV systolic function is mildly reduced with EF of 40 to 45%. Mild global hypokinesis with moderate hypokinesis of inferolateral and anterolateral mart. Grade 1 diastolic dysfunction Right Ventricle RV is mildly hypokinetic. Pacemaker lead is seen. Right Atrium Normal in size Left Atrium Dilated Mitral Valve Mild mitral annular calcification. Mild mitral regurgitation. Aortic Valve Bioprosthetic aortic valve. Normally functioning aortic valve with normal DVI of 0.57. Mildly elevated mean gradient across aortic valve of 14mmHg. Tricuspid Valve Mild tricuspid regurgitation. Insufficient TR jet to evaluate RVSP. Pulmonic Valve Not well visualized Pericardium Normal Aorta Normal in size IVC Not well visualized CONCLUSIONS LV systolic function is mildly reduced with EF of 40-45%. Above-mentioned regional wall motion abnormalities. Grade 1 diastolic dysfunction. RV is mildly hypokinetic. Left atrial dilated. Mildly mitral regurgitation Normally functioning bioprosthetic aortic valve. Mild tricuspid regurgitation Compared to prior echocardiogram from 01/2024, no significant changes are seen. Russell Herzog MD (Electronically Signed) Final Date: 29 February 2024 11:22 S
== END 2024-02-28 14:45 | disposition home or self-care (01) ==
LOC: RAD 14:45
PROVIDERS: PCP Family Medicine; Visit Provider Internal Medicine
DX: I50.30 Unspecified diastolic (congestive) heart failure (principal); I51.7 Cardiomegaly; Z95.0 Presence of cardiac pacemaker; Z95.2 Presence of prosthetic heart valve; R07.9 Chest pain, unspecified; R06.02 Shortness of breath
CPT/HCPCS: 93306

== ENCOUNTER 2024-03-09 21:38 | Emergency (ER) | payer MEDICARE, SELFPAY ==
[2024-03-09 21:55] VITALS: BP 150/74; PULSE 72; RESP 18; TEMP 36.5; O2SAT 95; BMI 22.4
--- NOTE | 2024-03-09 22:02 | W.ED.MALEGU ---
HPI - Male Genitourinary General: Chief complaint: Urogenital-Male Stated complaint: Need new Bag Time Seen by Provider: 03/09/24 22:01 History of Present Illness: Patient resents to the ER with complaints of his catheter leg bag is leaking and he needs a new one. Patient says started leaking yesterday. Patient has no other complaints at this time. Related Data Home Medications Medication Instructions Recorded Confirmed docusate sodium 100 mg capsule 100 mg PO DAILY 01/10/23 01/29/24 carvedilol 25 mg tablet 12.5 mg PO BID 01/16/24 01/29/24 finasteride 5 mg tablet 5 mg PO DAILY 01/16/24 01/29/24 xlsmoodd-oukndaov-ravcx acid 400 1 tab PO QAM 01/24/24 01/29/24 mcg-vit K 20 mcg-lycop 300 mcg tablet (Men's Daily Formula) tamsulosin 0.4 mg capsule 0.4 mg PO QPM 01/24/24 01/29/24 Previous Rx's Medication Instructions Recorded aspirin 81 mg chewable tablet 81 mg PO QAM #90 tabs 12/25/21 levothyroxine 50 mcg tablet 50 mcg PO QAM #90 tabs 04/24/23 (Synthroid) isosorbide mononitrate 30 mg 15 mg (1/2 x 30 mg) PO DAILY #90 06/24/23 tablet,extended release 24 hr tabs meclizine 12.5 mg tablet 12.5 mg PO TID PRN dizziness #20 09/25/23 tabs furosemide 20 mg tablet 20 mg PO .SAT/SAT/SAT/SUN #90 tabs 09/27/23 amlodipine 5 mg tablet 5 mg PO QAM #90 tabs 02/27/24 Allergies Allergy/AdvReac Type Severity Reaction Status Date / Time rosuvastatin [From Crestor] Allergy Mild Makes me Verified 01/29/24 12:39 daria nitroglycerin Allergy Unknown Makes me Verified 01/29/24 12:39 wild amitriptyline AdvReac Made me Verified 01/29/24 12:39 weak and daria, wasn't thinking right rivaroxaban [From Xarelto] AdvReac black stool Verified 01/29/24 12:39 Review of Systems General: Reports: 10 or more systems reviewed and unremarkable except in HPI and below PFSH ED PFSH: Medical History 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 Seborrheic keratoses Stroke Dizziness and giddiness Fatigue Dyslipidemia Diverticulosis Hiatal hernia History of pulmonary embolism History of Sindy-Kirk syndrome Chronic kidney disease Insomnia GERD (gastroesophageal reflux disease) Systolic congestive heart failure Thoracic aortic aneurysm CAD (coronary artery disease) Surgical History Status post transcatheter aortic valve replacement (TAVR) using bioprosthesis aortic stenosis History of drainage of abscess Percutaneous, right lower quadrant suspected appendiceal abscess History of cataract surgery Bilateral History of coronary artery stent placement Reports a total of 3 stents after her last CABG done in [facility] Dr. Rogers [facility] History of coronary artery bypass graft 1996 in 2010 -- 3 vessels total History of cholecystectomy Family History Mother Diabetes Stroke Father Gallbladder disease Brother Chronic kidney disease (CKD) Diabetes Denies family history of CAD (coronary artery disease) Clotting disorder Dementia Suicide Anesthesia complication Bleeding disorder Lung disease Cancer Social History Smoking and tobacco/nicotine status: never used tobacco/nicotine Alcohol intake: never Substance/Drug Use: never Caregiver/support person: Yes Household members: spouse Physical Exam Neck/C-Spine: COMMON NORMALS: no JVD Chest: COMMONS NORMALS: normal inspection of the chest and normal palpation of entire chest wall Resp: COMMON NORMALS: normal respiratory effort, No retractions, No use of accessory muscles and clear to auscultation bilaterally AUSCULTATION: clear to auscultation bilaterally Cardio: COMMON NORMALS: no JVD, regular rate, regular rhythm, S1 normal heart sound present, S2 normal heart sound present, No gallops present (Cardio), No clicks present (Cardio), No murmurs present (Cardio) and No rub (Cardio) RATE: regular rate RHYTHM: regular rhythm HEART SOUNDS: S1 normal heart sound present and S2 normal heart sound present GI: COMMON NORMALS: Normal to inspection, nondistended, normoactive bowel sounds present, Soft to palpation, non-tender, No hepatosplenomegaly present and no masses PALPATION: Yes Soft to palpation and Yes No hepatosplenomegaly present Course Vital Signs: Vital signs: Vital Signs Temperature 97.7 F 03/09/24 21:55 Pulse Rate 72 03/09/24 21:55 Respiratory Rate 18 03/09/24 21:55 Blood Pressure 150/74 03/09/24 21:55 Pulse Oximetry 95 03/09/24 21:55 Oxygen Delivery Me thod Room Air 03/09/24 21:55 MDM - Male Medical Decision Making Will replace the patient's leg bag anticipate discharge home. Medical Records I reviewed the patient's medical records. Lab Data I reviewed the patient's lab results. No radiology studies performed this visit Discharge Plan Discharge Patient Disposition: Home Clinical Impression: Malfunction of Cutler catheter Qualifiers: Encounter type: initial encounter Qualified Code(s): T83.011A - Breakdown (mechanical) of indwelling urethral catheter, initial encounter Condition: Stable Prescriptions: No Action docusate sodium 100 mg capsule 100 mg PO DAILY meclizine 12.5 mg tablet 12.5 mg PO TID PRN (Reason: dizziness) Qty: 20 0RF Synthroid 50 mcg tablet 50 mcg PO QAM Qty: 90 3RF furosemide 20 mg tablet 20 mg PO .MON/SAT/SAT/SUN Qty: 90 3RF amlodipine 5 mg tablet 5 mg PO QAM Qty: 90 3RF Hold Instructions: Resume on 01/28/24. aspirin 81 mg Tablet,Chewable 81 mg PO QAM Qty: 90 3RF isosorbide mononitrate 30 mg tablet extended release 24 hr 15 mg PO DAILY Qty: 90 3RF carvedilol 25 mg tablet 12.5 mg PO BID finasteride 5 mg tablet 5 mg PO DAILY Men's Daily Formula 400-20-300 mcg Tablet 1 tab PO QAM tamsulosin 0.4 mg capsule 0.4 mg PO QPM Discharge Orders: Discharge ED (Routine); Ordered 03/09/24 Ordered By: See King Referrals: Aicha Moran MD [Primary Care Provider] - 1 week Patient Instructions: Cutler Catheter Care Activity Restrictions/Additional Instructions: Thank you for choosing [facility] for your healthcare needs today. Please realize that you were seen in the emergency department and that we are providing you with an emergency medical screening exam and this may not be a complete and all exclusive of all testing and/or medical workup we may need to determine your element or severity of your illness. It is very important that you follow-up as instructed with your primary care provider or specialist for the additional evaluation and to discuss your medical treatment plan. You may return to the emergency department should you have concerns or if your condition changes or worsens in any way. Coding Level of Care Code ED Multimedia Coordinator for Gilbert Bettencourt
[2024-03-09 22:24] VITALS: BP 129/94; PULSE 83; O2SAT 94
[2024-03-09 22:27] VITALS: BP 129/94; PULSE 83; O2SAT 94
== END 2024-03-09 22:28 | disposition home or self-care (01) ==
PROVIDERS: Emergency Provider Emergency Medicine; PCP Family Medicine
DX: T83.011A Breakdown (mechanical) of indwelling urethral catheter, initial encounter (principal); Z79.82 Long term (current) use of aspirin; Z95.1 Presence of aortocoronary bypass graft; Z95.5 Presence of coronary angioplasty implant and graft; Z95.810 Presence of automatic (implantable) cardiac defibrillator; E78.5 Hyperlipidemia, unspecified; I25.10 Atherosclerotic heart disease of native coronary artery without angina pectoris; I50.20 Unspecified systolic (congestive) heart failure; X58.XXXA Exposure to other specified factors, initial encounter
CPT/HCPCS: 99282

== ENCOUNTER 2024-03-28 00:11 | Emergency (ER) | payer MEDICARE, SELFPAY ==
[2024-03-28 00:17] VITALS: BP 156/82; PULSE 56; RESP 16; TEMP 36.5; O2SAT 98; BMI 22.4
--- NOTE | 2024-03-28 03:09 | W.ED.MALEGU ---
HPI - Male Genitourinary General: Chief complaint: Urogenital-Male Stated complaint: Cath not working Time Seen by Provider: 03/28/24 03:02 History of Present Illness: Patient was into the ER with pain from his catheter. He said he had changed out on Saturday and has a more difficult time getting in the normal and he is had pain ever since. Said multiple catheters and is never had any pain like this before his describes as a qxws-iyk-hcotmxq weight down deep inside. Otherwise catheter is functioning properly. Related Data Home Medications Medication Instructions Recorded Confirmed docusate sodium 100 mg capsule 100 mg PO DAILY 01/10/23 01/29/24 carvedilol 25 mg tablet 12.5 mg PO BID 01/16/24 01/29/24 finasteride 5 mg tablet 5 mg PO DAILY 01/16/24 01/29/24 ormpescr-ctcrxqvd-njyib acid 400 1 tab PO QAM 01/24/24 01/29/24 mcg-vit K 20 mcg-lycop 300 mcg tablet (Men's Daily Formula) tamsulosin 0.4 mg capsule 0.4 mg PO QPM 01/24/24 01/29/24 Previous Rx's Medication Instructions Recorded aspirin 81 mg chewable tablet 81 mg PO QAM #90 tabs 12/25/21 levothyroxine 50 mcg tablet 50 mcg PO QAM #90 tabs 04/24/23 (Synthroid) isosorbide mononitrate 30 mg 15 mg (1/2 x 30 mg) PO DAILY #90 06/24/23 tablet,extended release 24 hr tabs meclizine 12.5 mg tablet 12.5 mg PO TID PRN dizziness #20 09/25/23 tabs furosemide 20 mg tablet 20 mg PO .MON/SAT/SAT/SUN #90 tabs 09/27/23 amlodipine 5 mg tablet 5 mg PO QAM #90 tabs 02/27/24 ciprofloxacin HCl 500 mg tablet 500 mg PO Q12H #20 tabs 03/28/24 Allergies Allergy/AdvReac Type Severity Reaction Status Date / Time rosuvastatin [From Crestor] Allergy Mild Makes me Verified 01/29/24 12:39 daria nitroglycerin Allergy Unknown Makes me Verified 01/29/24 12:39 wild amitriptyline AdvReac Made me Verified 01/29/24 12:39 weak and daria, wasn't thinking right rivaroxaban [From Xarelto] AdvReac black stool Verified 01/29/24 12:39 Review of Systems General: Reports: 10 or more systems reviewed and unremarkable except in HPI and below PFSH ED PFSH: Medical History 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 Seborrheic keratoses Stroke Dizziness and giddiness Fatigue Dyslipidemia Diverticulosis Hiatal hernia History of pulmonary embolism History of Sindy-Kirk syndrome Chronic kidney disease Insomnia GERD (gastroesophageal reflux disease) Systolic congestive heart failure Thoracic aortic aneurysm CAD (coronary artery disease) Surgical History Status post transcatheter aortic valve replacement (TAVR) using bioprosthesis aortic stenosis History of drainage of abscess Percutaneous, right lower quadrant suspected appendiceal abscess History of cataract surgery Bilateral History of coronary artery stent placement Reports a total of 3 stents after her last CABG done in [facility] Dr. Rogers [facility] 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 History of cholecystectomy Family History Mother Diabetes Stroke Father Gallbladder disease Brother Chronic kidney disease (CKD) Diabetes Denies family history of CAD (coronary artery disease) Clotting disorder Dementia Suicide Anesthesia complication Bleeding disorder Lung disease Cancer Social History Smoking and tobacco/nicotine status: never used tobacco/nicotine Alcohol intake: never Substance/Drug Use: never Caregiver/support person: Yes Household members: spouse Physical Exam Const: COMMON NORMALS: no acute distress, average body habitus, patient oriented x3, no limitations, healthy appearing, alert and well nourished Neck/C-Spine: COMMON NORMALS: no JVD Chest: COMMONS NORMALS: normal inspection of the chest and normal palpation of entire chest wall Resp: COMMON NORMALS: normal respiratory effort, No retractions, No use of accessory muscles and clear to auscultation bilaterally AUSCULTATION: clear to auscultation bilaterally Cardio: COMMON NORMALS: no JVD, regular rate, regular rhythm, S1 normal heart sound present, S2 normal heart sound present, No gallops present (Cardio), No clicks present (Cardio), No murmurs present (Cardio) and No rub (Cardio) RATE: regular rate RHYTHM: regular rhythm HEART SOUNDS: S1 normal heart sound present and S2 normal heart sound present GI: COMMON NORMALS: Normal to inspection, nondistended, normoactive bowel sounds present, Soft to palpation, non-tender, No hepatosplenomegaly present and no masses PALPATION: Yes Soft to palpation and Yes No hepatosplenomegaly present Neuro: COMMON NORMALS: patient oriented x3 SENSORIUM/ORIENTATION: Yes alert Course Vital Signs: Vital signs: Vital Signs Temperature 97.7 F 03/28/24 00:17 Pulse Rate 61 03/28/24 04:00 Respiratory Rate 16 03/28/24 00:17 Blood Pressure 136/73 03/28/24 04:00 Pulse Oximetry 97 03/28/24 04:00 Oxygen Delivery Me thod Room Air 03/28/24 03:44 MDM - Male Medical Decision Making Urinalysis showed positive signs of infection, last urine culture was sensitive to Cipro. Will prescribe the patient Cipro. Medical Records I reviewed the patient's medical records. Lab Data I reviewed the patient's lab results. Laboratory Results Urine Color Yellow (Yellow) 03/28/24 03:36 Urine Appearance Cloudy (CLEAR) A 03/28/24 03:36 Urine pH 5.0 (5-7) 03/28/24 03:36 Ur Specific [place] 1.021 (1.005-1.030) 03/28/24 03:36 Urine Protein 1+ (Negative) A 03/28/24 03:36 Urine Glucose (UA) Negative (Normal) 03/28/24 03:36 Urine Ketones Negative (Negative) 03/28/24 03:36 Urine Blood 2+ (Negative) A 03/28/24 03:36 Urine Nitrate Positive (Negative) A 03/28/24 03:36 Urine Bilirubin Negative (Negative) 03/28/24 03:36 Urine Urobilinogen 1.0 mg/dL (Negative) 03/28/24 03:36 Ur Leukocyte Esterase 2+ (Negative) A 03/28/24 03:36 Urine RBC 0-4 /hpf (0-2) H 03/28/24 03:36 Urine WBC >100 /hpf (0-5) H 03/28/24 03:36 Ur Squamous Epith Cells 0-4 /hpf (0-5) H 03/28/24 03:36 Amorphous Sediment Not Reportable 03/28/24 03:36 Urine Bacteria Trace /hpf (NONE) 03/28/24 03:36 All radiology interpretation(s) finalized by discharge Discharge Plan Discharge Patient Disposition: Home Clinical Impression: Catheter-associated urinary tract infection Qualifiers: Indwelling urinary catheter type: unspecified Encounter type: initial encounter Qualified Code(s): T83.511A - Infection and inflammatory reaction due to indwelling urethral catheter, initial encounter Condition: Stable Prescriptions: New ciprofloxacin HCl 500 mg tablet 500 mg PO Q12H Qty: 20 0RF No Action docusate sodium 100 mg capsule 100 mg PO DAILY meclizine 12.5 mg tablet 12.5 mg PO TID PRN (Reason: dizziness) Qty: 20 0RF Synthroid 50 mcg tablet 50 mcg PO QAM Qty: 90 3RF furosemide 20 mg tablet 20 mg PO .MON/WED/SAT/SUN Qty: 90 3RF amlodipine 5 mg tablet 5 mg PO QAM Qty: 90 3RF Hold Instructions: Resume on 01/28/24. aspirin 81 mg Tablet,Chewable 81 mg PO QAM Qty: 90 3RF isosorbide mononitrate 30 mg tablet extended release 24 hr 15 mg PO DAILY Qty: 90 3RF carvedilol 25 mg tablet 12.5 mg PO BID finasteride 5 mg tablet 5 mg PO DAILY Men's Daily Formula 400-20-300 mcg Tablet 1 tab PO QAM tamsulosin 0.4 mg capsule 0.4 mg PO QPM Discharge Orders: Discharge ED (Routine); Ordered 03/28/24 Ordered By: See King Referrals: Aicha Moran MD [Primary Care Provider] - 1 week Patient Instructions: Urinary Tract Infection in Men (ED), Catheter-associated Urinary Tract Infection (ED) Activity Restrictions/Additional Instructions: Thank you for choosing [facility] for your healthcare needs today. Please realize that you were seen in the emergency department and that we are providing you with an emergency medical screening exam and this may not be a complete and all exclusive of all testing and/or medical workup we may need to determine your element or severity of your illness. It is very important that you follow-up as instructed with your primary care provider or specialist for the additional evaluation and to discuss your medical treatment plan. You may return to the emergency department should you have concerns or if your condition changes or worsens in any way. Coding Level of Care Code ED Applications Specialist for Gilbert Bettencourt
[2024-03-28 03:44] VITALS: BP 167/92; PULSE 64; O2SAT 64
[2024-03-28 04:00] VITALS: BP 136/73; PULSE 61; O2SAT 97
[2024-03-28 04:03] LABS: Bilirubin Urine Negative (Negative); Blood Urine 2+ (Negative); Glucose Urine UA Negative (Normal); Ketones Urine Negative (Negative); Leukocyte Esterase Urine 2+ (Negative); Nitrate Urine Positive (Negative); Protein Urine 1+ (Negative); Specific Gravity, Urine 1.021 (1.005-1.030); Urine Appearance Cloudy (CLEAR); Urine Color Yellow (Yellow)
[2024-03-28 04:25] LABS: Add Urine Culture? Yes; Add Urine Microscopic? YES; Bacteria Urine TRACE /hpf; RBC Urine 0-4 /hpf (0-2); Squamous Epithelial Cell Urine 0-4 /hpf (0-5); WBC Urine >100 /hpf (0-5)
[2024-03-28 04:48] VITALS: BP 152/96; PULSE 60; RESP 18; O2SAT 98
[2024-03-28] MEDS: ciprofloxacin 500 mg Tablet PO (04:52)
== END 2024-03-28 05:00 | disposition home or self-care (01) ==
PROVIDERS: Emergency Provider Emergency Medicine; PCP Family Medicine
DX: T83.511A Infection and inflammatory reaction due to indwelling urethral catheter, initial encounter (principal); X58.XXXA Exposure to other specified factors, initial encounter; Z79.82 Long term (current) use of aspirin; I50.20 Unspecified systolic (congestive) heart failure; I25.10 Atherosclerotic heart disease of native coronary artery without angina pectoris
CPT/HCPCS: 81001; 87077; 87086; 87186; 99283

== ENCOUNTER → 2024-03-31 12:30 | Outpatient (BNVA) | payer MEDICARE, SELFPAY | PROVIDERS: PCP Family Medicine; Visit Provider Internal Medicine Cardiovascular Disease | DX: I25.810 Atherosclerosis of coronary artery bypass graft(s) without angina pectoris (principal); I13.0 Hypertensive heart and chronic kidney disease with heart failure and stage 1 through stage 4 chronic kidney disease, or unspecified chronic kidney disease; I50.22 Chronic systolic (congestive) heart failure; N18.9 Chronic kidney disease, unspecified; I25.10 Atherosclerotic heart disease of native coronary artery without angina pectoris; Z95.810 Presence of automatic (implantable) cardiac defibrillator; R94.39 Abnormal result of other cardiovascular function study | CPT/HCPCS: 99214 ==

== ENCOUNTER 2024-04-18 20:54 | Inpatient (IN) | payer MEDICARE, SELFPAY ==
[2024-04-18 20:56] VITALS: BP 149/103; PULSE 100; RESP 18; TEMP 37.9; O2SAT 92; BMI 22.4
[2024-04-18 21:01] VITALS: BP 149/103; PULSE 108; RESP 18; O2SAT 91
--- NOTE | 2024-04-18 21:40 | W.ED.NAVMDI ---
HPI - Nausea/Vomiting/Diarrhea General: Chief complaint: Nausea/Vomiting/Diarrhea Stated complaint: WEAKNESS Time Seen by Provider: 04/18/24 21:07 History of Present Illness: 83-year-old male gentleman with multiple episodes of vomiting today. He usually walks with a cane, but now cannot get out of bed. Has a temperature of 100.2. No diarrhea. Some intermittent abdominal pain. He has a chronic indwelling Cutler catheter. He seems more confused to his daughter than normal today. He denies cough. Denies significant shortness of breath. Denies significant pain otherwise. He has a substantial cardiac history with 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, and is status post TAVR. Related Data Home Medications ?Medication ?Instructions ?Recorded ?Confirmed docusate sodium 100 mg capsule 100 mg PO DAILY 01/10/23 03/31/24 carvedilol 25 mg tablet 12.5 mg PO BID 01/16/24 03/31/24 finasteride 5 mg tablet 5 mg PO DAILY 01/16/24 03/31/24 aozelbyr-smymeijf-ckinp acid 400 1 tab PO QAM 01/24/24 03/31/24 mcg-vit K 20 mcg-lycop 300 mcg tablet (Men's Daily Formula) tamsulosin 0.4 mg capsule 0.4 mg PO QPM 01/24/24 03/31/24 Previous Rx's ?Medication ?Instructions ?Recorded aspirin 81 mg chewable tablet 81 mg PO QAM #90 tabs 12/25/21 levothyroxine 50 mcg tablet 50 mcg PO QAM #90 tabs 04/24/23 (Synthroid) isosorbide mononitrate 30 mg 15 mg (1/2 x 30 mg) PO DAILY #90 06/24/23 tablet,extended release 24 hr tabs meclizine 12.5 mg tablet 12.5 mg PO TID PRN dizziness #20 09/25/23 tabs furosemide 20 mg tablet 20 mg PO .SAT/SAT/SAT/SUN #90 tabs 09/27/23 amlodipine 5 mg tablet 5 mg PO QAM #90 tabs 02/27/24 ciprofloxacin HCl 500 mg tablet 500 mg PO Q12H #20 tabs 03/28/24 Allergies Allergy/AdvReac Type Severity Reaction Status Date / Time rosuvastatin (From Crestor) Allergy Mild Makes me Verified 03/31/24 13:10 daria nitroglycerin Allergy Unknown Makes me Verified 03/31/24 13:10 wild amitriptyline AdvReac Made me Verified 03/31/24 13:10 weak and daria, wasn't thinking right rivaroxaban (From Xarelto) AdvReac black stool Verified 03/31/24 13:10 [facility] PFSH: Medical History 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 Seborrheic keratoses Stroke Dizziness and giddiness Fatigue Dyslipidemia Diverticulosis Hiatal hernia History of pulmonary embolism History of Sindy-Kirk syndrome Chronic kidney disease Insomnia GERD (gastroesophageal reflux disease) Systolic congestive heart failure Thoracic aortic aneurysm CAD (coronary artery disease) Surgical History Status post transcatheter aortic valve replacement (TAVR) using bioprosthesis aortic stenosis History of drainage of abscess Percutaneous, right lower quadrant suspected appendiceal abscess History of cataract surgery Bilateral History of coronary artery stent placement Reports a total of 3 stents after her last CABG done in [facility] History of coronary artery bypass graft 1996 in 2010 -- 3 vessels total History of cholecystectomy Family History Mother Diabetes Stroke Father Gallbladder disease Brother Chronic kidney disease (CKD) Diabetes Denies family history of CAD (coronary artery disease) Clotting disorder Dementia Suicide Anesthesia complication Bleeding disorder Lung disease Cancer Social History Smoking and tobacco/nicotine status: never used tobacco/nicotine Alcohol intake: never Substance/Drug Use: never Caregiver/support person: Yes Household members: spouse Physical Exam Const: COMMON NORMALS: no acute distress GENERAL APPEARANCE: cooperative; not ill appearing and not frail appearing HENMT: COMMON NORMALS: normocephalic, atraumatic and Normal external nose present HEAD & SCALP: normocephalic and atraumatic FACE & SINUS: normal facial exam and face symmetric NOSE: Normal external nose present Eye: COMMON NORMALS: Equal, round and reactive pupils present and EOMs intact bilaterally PUPIL: Yes Equal, round and reactive pupils present Neck/C-Spine: GENERAL: Yes trachea midline Chest: CHEST: Yes Symmetrical chest wall rise Resp: COMMON NORMALS: normal respiratory effort, No retractions, No use of accessory muscles and clear to auscultation bilaterally AUSCULTATION: clear to auscultation bilaterally Cardio: RATE: tachycardic RHYTHM: abnormal rhythm irregularly irregular GI: COMMON NORMALS: Normal to inspection, nondistended, normoactive bowel sounds present PALPATION: Yes Tenderness to palpation present (GI) Details: LLQ Extremity: COMMON NORMALS: no pedal edema Neuro: SRINI COMA SCALE: document GCS findings Srini coma scale eye opening: Spontaneous Srini coma scale verbal response: Orientated Fenton coma scale motor response: Obey commands Fenton coma scale total score: 15 SENSORY EXAM: Yes extremities (intact) Psych: COMMON NORMALS: speech normal SPEECH: Yes normal speech Skin: COMMON NORMALS: no rashes or lesions noted GENERAL SKIN EXAM: no rashes or lesions noted Course Vital Signs: Vital signs: Vital Signs Temperature 100.2 F H 04/18/24 20:56 Pulse Rate 102 H 04/19/24 00:41 Respiratory Rate 18 04/19/24 00:02 Blood Pressure 158/89 04/19/24 00:41 Pulse Oximetry 93 04/19/24 00:41 Oxygen Delivery Me thod Nasal Cannula 04/19/24 00:41 Oxygen Flow Rate 2 04/19/24 00:41 MDM - Nausea/Vomiting/Diarrhea Medical Decision Making This patient is on oxygen. Saturations were 86% on room air. He is febrile. White blood cell count is 8.3. He is negative for COVID flu and RSV. Chest x-ray shows bilateral lower lobe infiltrates. CT scan is negative for abdominal disease but confirms bilateral infiltrates in the lower lobes. Creatinine is 1.3 which is stable. Electrolytes are not remarkable. The patient is incredibly weak, and unable to walk. With hypoxic respiratory failure, pneumonia, and weakness, he will be admitted. Hospitalist has seen the patient in the ER. Lab Data 04/18/24 21:59 04/18/24 21:59 Radiology Impressions Chest X-Ray 04/18/24 21:42 IMPRESSION: Acute bilateral lower lobe infiltrates. Abdomen/Pelvis CT 04/18/24 21:43 IMPRESSION: 1. Extensive colonic diverticulosis without evidence of acute diverticulitis. 2. Punctate bilateral nephroliths. No obstructive uropathy. 3. Bilateral renal cysts along with a too small to characterize hypodense lesion on the right side x 7 mm in size. 4. Infrarenal abdominal aortic aneurysm x 3.6 cm. 5. Mild infiltrates at the bilateral lower lobe. COMMENTS: Consistent with the [place] [employer]'s Incidental Findings Committee white paper (J Am Nilson Radiol 2018): Any incidental renal lesion less than 1 cm or classified as too small to characterize, or any incidental cystic renal lesion characterized as simple-appearing, is likely benign. No follow-up imaging is recommended for these lesions per consensus recommendations based on imaging criteria. Laboratory Results WBC 8.28 10^3/uL (3.29-11.43) 04/18/24 21:59 RBC 4.73 10^6/uL (3.85-5.65) 04/18/24 21:59 Hgb 15.60 g/dL (11.27-16.99) 04/18/24 21:59 Hct 45.4 % (37-53) 04/18/24 21:59 MCV 96.0 fl (82-101) 04/18/24 21:59 MCH 33.0 pg (27-33) 04/18/24 21:59 MCHC 34.4 g/dL (30-55) 04/18/24 21:59 RDW 12.3 % (12.1-15.1) 04/18/24 21:59 Plt Count 122 10^3/cmm (157-399) L 04/18/24 21:59 MPV 10.7 fL (7.4-10.4) H 04/18/24 21:59 Neut % (Auto) 75.6 % 04/18/24 21:59 Lymph % (Auto) 5.2 % 04/18/24 21:59 Ramsey % (Auto) 10.6 % 04/18/24 21:59 Eos % (Auto) 8.0 % 04/18/24 21:59 Baso % (Auto) 0.2 % 04/18/24 21:59 Neut # (Auto) 6.26 10^3/uL (1.8-7.7) 04/18/24 21:59 Lymph # (Auto) 0.4 10^3/uL (0.8-4.8) L 04/18/24 21:59 Ramsey # (Auto) 0.9 10^3/uL (0.2-0.9) 04/18/24 21:59 Eos # (Auto) 0.7 10^3/uL (0.0-0.8) 04/18/24 21:59 Baso # (Auto) 0.0 10^3/uL (0.0-0.1) 04/18/24 21:59 Nucleated RBC % (auto) 0 % 04/18/24 21:59 Nucleated RBCs # 0.0 /100WBC 04/18/24 21:59 Sodium 142 mmol/L (136-145) 04/18/24 21:59 Potassium 3.8 mmol/L (3.5-5.1) 04/18/24 21:59 Chloride 107 mmol/L (98-107) 04/18/24 21:59 Carbon Dioxide 21 mmol/L (22-29) L 04/18/24 21:59 Anion Gap 17.8 (5-19) 04/18/24 21:59 BUN 26 mg/dL (8-23) H 04/18/24 21:59 Creatinine 1.3 mg/dL (0.7-1.2) H 04/18/24 21:59 GFR Calculation Not Reportable 04/18/24 21:59 Glucose 121 mg/dL (65-115) H 04/18/24 21:59 Calculated Osmolality 300 mOsm/kg (285-295) H 04/18/24 21:59 Lactic Acid 1.5 mmol/L (0.5-2.2) 04/18/24 21:59 Calcium 8.8 mg/dL (8.5-10.5) 04/18/24 21:59 Total Bilirubin 0.8 mg/dL (0.15-1.2) 04/18/24 21:59 AST 15 U/L (0-40) 04/18/24 21:59 ALT 10 U/L (0-41) 04/18/24 21:59 Alkaline Phosphatase 106 U/L (40-130) 04/18/24 21:59 C-Reactive Protein 44.6 mg/L (0.0-4.9) H 04/18/24 21:59 Total Protein 7.0 g/dL (6.6-8.7) 04/18/24 21:59 Albumin 3.9 g/dL (3.5-5.2) 04/18/24 21:59 Globulin 3.1 g/dL (1.3-4.6) 04/18/24 21:59 Lipase 28 U/L (13-60) 04/18/24 21:59 Urine Color Yellow (Yellow) 04/18/24 22:46 Urine Appearance Cloudy (CLEAR) A 04/18/24 22:46 Urine pH 5.5 (5-7) 04/18/24 22:46 Ur Specific [place] 1.064 (1.005-1.030) H 04/18/24 22:46 Urine Protein 3+ (Negative) A 04/18/24 22:46 Urine Glucose (UA) Negative (Normal) 04/18/24 22:46 Urine Ketones Negative (Negative) 04/18/24 22:46 Urine Blood 2+ (Negative) A 04/18/24 22:46 Urine Nitrate Negative (Negative) 04/18/24 22:46 Urine Bilirubin Negative (Negative) 04/18/24 22:46 Urine Urobilinogen 1.0 mg/dL (Negative) 04/18/24 22:46 Ur Leukocyte Esterase Negative (Negative) 04/18/24 22:46 Urine RBC 21-50 /hpf (0-2) H 04/18/24 22:46 Urine WBC 0-5 /hpf (0-5) 04/18/24 22:46 Ur Squamous Epith Cells 0-5 /hpf (0-5) 04/18/24 22:46 Uric Acid Crystals 15-25 /hpf H 04/18/24 22:46 Amorphous Sediment Not Reportable 04/18/24 22:46 Urine Bacteria 1+ /hpf (NONE) H 04/18/24 22:46 Hyaline Casts 2.46 /lpf 04/18/24 22:46 Coronavirus (PCR) Negative (Negative) 04/18/24 21:00 Influenza A (PCR) Negative (Negative) 04/18/24 21:00 Influenza Type B (PCR) Negative (Negative) 04/18/24 21:00 RSV (PCR) Negative (Negative) 04/18/24 21:00 All radiology interpretation(s) finalized by discharge Discharge Plan Discharge Patient Disposition: Admitted As Inpatient Clinical Impression: Pneumonia, Acute hypoxemic respiratory failure Condition: Fair Prescriptions: No Action docusate sodium 100 mg capsule 100 mg PO DAILY meclizine 12.5 mg tablet 12.5 mg PO TID PRN (Reason: dizziness) Qty: 20 0RF Synthroid 50 mcg tablet 50 mcg PO QAM Qty: 90 3RF furosemide 20 mg tablet 20 mg PO .MON/WED/FRI/SUN Qty: 90 3RF amlodipine 5 mg tablet 5 mg PO QAM Qty: 90 3RF ciprofloxacin HCl 500 mg tablet 500 mg PO Q12H Qty: 20 0RF aspirin 81 mg Tablet,Chewable 81 mg PO QAM Qty: 90 3RF isosorbide mononitrate 30 mg tablet extended release 24 hr 15 mg PO DAILY Qty: 90 3RF carvedilol 25 mg tablet 12.5 mg PO BID finasteride 5 mg tablet 5 mg PO DAILY Men's Daily Formula 400-20-300 mcg Tablet 1 tab PO QAM tamsulosin 0.4 mg capsule 0.4 mg PO QPM Referrals: Aicha Moran MD [Primary Care Provider] - Print Language: [place] Coding Level of Care Code ED Graphics Manager for Gilbert Bettencourt
--- NOTE | 2024-04-18 21:42 | XRR_ITS ---
PROCEDURE INFORMATION: Exam: XR Chest Exam date and time: 04/18/2024 9:59 PM Age: 83 years old Clinical indication: Fever; Prior surgery; Surgery date: 6+ months; Surgery type: Coronary bypass and stent; Pacemaker; PT presents to ED via EMS from home C/O intermittent n/v, weakness x2 days. states sometimes he can barely swallow the food without throwing up. PT normally walks with a cane but cannot hardly walk now. PT has assisted indwelling catheter (est 6 wks) for retention. PT has pacemaker. EMS reports PT is normally slightly confused. PT thinks it is September 2024. ; Additional info: Fever AMS TECHNIQUE: Imaging protocol: Radiologic exam of the chest. Views: 1 view. COMPARISON: CR XR chest 1V portable [id number] 01/24/2024 9:10 AM FINDINGS: Tubes, catheters and devices: Pacemaker. Lungs: Patchy bilateral lower lobe opacities. Pleural spaces: No pleural effusion. No pneumothorax. Heart/Mediastinum: Stable cardiac contours. Aortic valve prosthesis. Bones/joints: Median sternotomy. XR/XR chest 1V portable [id number] IMPRESSION: Acute bilateral lower lobe infiltrates.
--- NOTE | 2024-04-18 21:43 | CTR_ITS ---
PROCEDURE INFORMATION: Exam: CT Abdomen And Pelvis With Contrast Exam date and time: 04/18/2024 10:28 PM Age: 83 years old Clinical indication: Abdominal pain; Localized; Left lower quadrant (llq); Prior surgery; Surgery date: 6+ months; Surgery type: Tavr. Cabg. Gb; C/O llq pain. Cutler in place. TECHNIQUE: Imaging protocol: Computed tomography of the abdomen and pelvis with contrast. Radiation optimization: All CT scans at this facility use at least one of these dose optimization techniques: automated exposure control; mA and/or kV adjustment per patient size (includes targeted exams where dose is matched to clinical indication); or iterative reconstruction. Contrast material: OMNI 350; Contrast volume: 80 ml; Contrast route: INTRAVENOUS (IV); COMPARISON: CT angio chest w abd pel w con 12/20/2017 9:56 PM RADIATION DOSE METRICS: Total DLP (mGy-cm): 623.39 FINDINGS: Lungs: Mild patchy bilateral lung base opacities. Heart: Cardiomegaly. Aortic valve prosthesis. Liver: Unremarkable. No mass. Gallbladder and biliary ducts: Status post cholecystectomy. Pancreas: Unremarkable. No ductal dilation. Spleen: Unremarkable. No mass. Adrenal glands: Unremarkable. No mass. Kidneys and ureters: Punctate bilateral renal stones and small renal cysts. There is a too small to characterize lesion on the right side measuring 7 mm in size (series 4, image 37). No hydronephrosis. Stomach and bowel: Colonic diverticulosis. No acute diverticulitis. No significant mucosal thickening. No bowel obstruction. Appendix: No evidence of appendicitis. Intraperitoneal space: No free air. No significant fluid collection. Vasculature: Infrarenal abdominal aortic aneurysm measuring 3.6 cm with peripheral noncalcified plaques. No occlusion. Lymph nodes: No enlarged lymph nodes. Urinary bladder: Decompressed urinary bladder with Cutler. Reproductive: Prostatomegaly. Bones/joints: Stable mild compression deformity of L2. No acute bony findings. Soft tissues: No bowel containing hernia. CT/CT abdomen pelvis w con* [id number] IMPRESSION: 1. Extensive colonic diverticulosis without evidence of acute diverticulitis. 2. Punctate bilateral nephroliths. No obstructive uropathy. 3. Bilateral renal cysts along with a too small to characterize hypodense lesion on the right side x 7 mm in size. 4. Infrarenal abdominal aortic aneurysm x 3.6 cm. 5. Mild infiltrates at the bilateral lower lobe. COMMENTS: Consistent with the [employer]'s Incidental Findings Committee white paper (J Am Nilson Radiol 2018): Any incidental renal lesion less than 1 cm or classified as too small to characterize, or any incidental cystic renal lesion characterized as simple-appearing, is likely benign. No follow-up imaging is recommended for these lesions per consensus recommendations based on imaging criteria.
[2024-04-18 21:53] LABS: Influenza A NEGATIVE (Negative); Influenza B NEGATIVE (Negative); Respiratory Syncytial Virus Ce NEGATIVE (Negative); SARS-CoV-2 PCR NEGATIVE (Negative)
[2024-04-18 22:09] LABS: Basophils % 0.2 %; Eosinophils # 0.7 10^3/uL (0.0-0.8); Hematocrit 45.4 % (37-53); Lymphocytes # 0.4 10^3/uL (0.8-4.8); Lymphocytes % 5.2 %; Mean Corpuscular HGB Conc 34.4 g/dL (30-55); Mean Platelet Volume 10.7 fL (7.4-10.4); Monocytes # 0.9 10^3/uL (0.2-0.9); Monocytes % 10.6 %; Neutrophils # 6.26 10^3/uL (1.8-7.7); Neutrophils % 75.6 %; Nucleated Red Blood Cells % 0 %; Platelet Count 122 10^3/cmm (157-399); Red Blood Count 4.73 10^6/uL (3.85-5.65); Red Cell Distribution Width 12.3 % (12.1-15.1); White Blood Count 8.28 10^3/uL (3.29-11.43)
[2024-04-18 22:24] LABS: Lactic Sepsis W/Reflex 1.5 mmol/L (0.5-2.2)
[2024-04-18 22:25] LABS: Alanine Aminotransferase 10 U/L (0-41); Albumin Level 3.9 g/dL (3.5-5.2); Alkaline Phosphatase 106 U/L (40-130); Anion Gap 17.8 (5-19); Aspartate Amino Transferase 15 U/L (0-40); Blood Urea Nitrogen 26 mg/dL (8-23); C Reactive Protein 44.6 mg/L (0.0-4.9); Calcium 8.8 mg/dL (8.5-10.5); Carbon Dioxide 21 mmol/L (22-29); Chloride 107 mmol/L (98-107); Globulin 3.1 g/dL (1.3-4.6); Glucose 121 mg/dL (65-115); Lipase 28 U/L (13-60); Osmolality Calculated 300 mOsm/kg (285-295); Potassium 3.8 mmol/L (3.5-5.1); Sodium 142 mmol/L (136-145); Total Bilirubin 0.8 mg/dL (0.15-1.2)
[2024-04-18] MEDS: sodium chloride 0.9% 1,000 ML 999 ML IV (22:26)
[2024-04-18] MEDS: iohexol 350 mg/mL 500 mL Btl (per mL) IV (22:33)
[2024-04-18 22:54] LABS: Bilirubin Urine Negative (Negative); Blood Urine 2+ (Negative); Glucose Urine UA Negative (Normal); Ketones Urine Negative (Negative); Leukocyte Esterase Urine Negative (Negative); Nitrate Urine Negative (Negative); Protein Urine 3+ (Negative); Urine Appearance Cloudy (CLEAR); Urine Color Yellow (Yellow); pH Urine 5.5 (5-7)
[2024-04-18 22:57] LABS: Add Urine Microscopic? YES; Hyaline Casts Urine 2.46 /lpf; RBC Urine 21-50 /hpf (0-2); Squamous Epithelial Cell Urine 0-5 /hpf (0-5); WBC Urine 0-5 /hpf (0-5)
[2024-04-18 23:24] LABS: Specific Gravity, Urine 1.064 (1.005-1.030)
[2024-04-18 23:25] LABS: UA Slide Review UA Slide Review Perf
[2024-04-18 23:26] LABS: Bacteria Urine 1+ /hpf
[2024-04-18 23:27] LABS: Add Urine Culture? Yes; Uric Acid Crystals Urine 15-25 /hpf
[2024-04-18] MEDS: piperacillin-tazobactam 4.5 GM in sodium chloride 0.9% (plus) 50 ML IV (23:59)
[2024-04-19] VITALS (12 sets, daily range): BP systolic 114–175; BP diastolic 66–94; PULSE 56–106; RESP 16–18; TEMP 36.8–36.9; O2SAT 90–95
--- NOTE | 2024-04-19 00:53 | PM.HP ---
Providers/Chief Complaint Primary Care Provider: Aicha Moran MD Chief Complaint: WEAKNESS History of Present Illness Eliza Grimm is a 83 year old male with EF 40 to 45% status post AICD, recent preoperative negative stress test, chronic left-sided weakness from previous stroke, history of CABG, TAVR, chronic kidney disease, chronic indwelling catheterPresented with chief complaint of generalized weakness, fatigue and fever. Patient recently had a negative stress test as cardiac clearance for his pending Turp at [place], chronic indwelling catheter for last 5 months, presented today with chief complaint of confusion, lethargy fatigue poor p.o. intake. Family is at the bedside stating that the brought him in for worsening of dehydration, confusion generalized weakness and fatigue. Patient has not eaten well in last 48 hours, they have not taken temperature, patient endorsing subjective fevers, patient is not endorsing chest pain, diarrhea, dysuria. He is aware about his name, date of not oriented to place. He is febrile with tachycardia x-ray and CT abdomen consistent with bilateral infiltrate. Patient had only 1 episode of emesis at home. CT abdomen pelvis unremarkable other than nonobstructive kidney stones. Patient is requiring 2 L of oxygen, at baseline patient walks independently, lives with his , does not use oxygen D Review of Systems Const: Reports: fever(s) and chills Eyes: Denies: change in vision ENMT: Denies: throat pain Card: Denies: chest pain Resp: Reports: dyspnea GI: Reports: nausea : Denies: flank pain Musc: Denies: neck pain Skin/Breast: Denies: rash Neuro: Reports: confusion Medications/Allergies Home Medications ?Medication ?Instructions ?Recorded ?Confirmed ?Last Taken ?Type aspirin 81 mg chewable tablet 81 mg PO QAM #90 tabs 12/25/21 03/31/24 01/27/24 Rx docusate sodium 100 mg capsule 100 mg PO DAILY 01/10/23 03/31/24 01/27/24 History levothyroxine 50 mcg tablet 50 mcg PO QAM #90 tabs 04/24/23 03/31/24 01/27/24 Rx (Synthroid) isosorbide mononitrate 30 mg 15 mg (1/2 x 30 mg) PO DAILY #90 06/24/23 03/31/24 01/27/24 Rx tablet,extended release 24 hr tabs meclizine 12.5 mg tablet 12.5 mg PO TID PRN dizziness #20 09/25/23 03/31/24 Unknown Rx tabs furosemide 20 mg tablet 20 mg PO .MON/SAT/SAT/SUN #90 tabs 09/27/23 03/31/24 01/27/24 Rx carvedilol 25 mg tablet 12.5 mg PO BID 01/16/24 03/31/24 01/27/24 History finasteride 5 mg tablet 5 mg PO DAILY 01/16/24 03/31/24 01/27/24 History sfjpzzlr-otsbukon-jlwll acid 400 1 tab PO QAM 01/24/24 03/31/24 01/27/24 History mcg-vit K 20 mcg-lycop 300 mcg tablet (Men's Daily Formula) tamsulosin 0.4 mg capsule 0.4 mg PO QPM 01/24/24 03/31/24 01/26/24 History amlodipine 5 mg tablet 5 mg PO QAM #90 tabs 02/27/24 03/31/24 Unknown Rx ciprofloxacin HCl 500 mg tablet 500 mg PO Q12H #20 tabs 03/28/24 03/31/24 Unknown Rx Allergies Allergy/AdvReac Type Severity Reaction Status Date / Time rosuvastatin (From Crestor) Allergy Mild Makes me Verified 03/31/24 13:10 daria nitroglycerin Allergy Unknown Makes me Verified 03/31/24 13:10 wild amitriptyline AdvReac Made me Verified 03/31/24 13:10 weak and daria, wasn't thinking right rivaroxaban (From Xarelto) AdvReac black stool Verified 03/31/24 13:10 PFSH Acute PFSH: Medical History 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 Seborrheic keratoses Stroke Dizziness and giddiness Fatigue Dyslipidemia Diverticulosis Hiatal hernia History of pulmonary embolism History of Sindy-Kirk syndrome Chronic kidney disease Insomnia GERD (gastroesophageal reflux disease) Systolic congestive heart failure Thoracic aortic aneurysm CAD (coronary artery disease) Surgical History Status post transcatheter aortic valve replacement (TAVR) using bioprosthesis aortic stenosis History of drainage of abscess Percutaneous, right lower quadrant suspected appendiceal abscess History of cataract surgery Bilateral History of coronary artery stent placement Reports a total of 3 stents after her last CABG done in [place] History of coronary artery bypass graft 1996 in 2010 -- 3 vessels total History of cholecystectomy Family History Mother Diabetes Stroke Father Gallbladder disease Brother Chronic kidney disease (CKD) Diabetes Denies family history of CAD (coronary artery disease) Clotting disorder Dementia Suicide Anesthesia complication Bleeding disorder Lung disease Cancer Social History Smoking and tobacco/nicotine status: never used tobacco/nicotine Alcohol intake: never Substance/Drug Use: never Caregiver/support person: Yes Household members: spouse Vitals/I&O/Wt Last Vital Signs Temp 100.2 F H 04/18/24 20:56 Pulse 102 H 04/19/24 00:41 Resp 18 04/19/24 00:02 BP 158/89 04/19/24 00:41 Pulse Ox 93 04/19/24 00:41 O2 Del Method Nasal Cannula 04/19/24 00:41 O2 Flow Rate 2 04/19/24 00:41 04/18/24 04/18/24 04/19/24 14:59 22:59 06:59 Intake Total 0 / 0 1000 / 1000 Balance 0 / 0 1000 / 1000 Weight last 48 hrs Weight 77.111 kg Physical Exam Narrative: Patient currently on 2 L of oxygen No active chest pain or respiratory distress Family at the bedside No sign of focal deficit Patient oriented to time and person but not place No new focal deficit Pleasant and cooperative Lethargic and fatigue Clinically looks dehydrated S1, S2 tachycardia Febrile No sign of meningitis Abdomen soft AICD in place Clinically looks dehydrated Data 04/18/24 21:59 04/18/24 21:59 Micro: Microbiology 04/18/24 21:49 Blood Culture - Preliminary Blood SPECIMEN COLLECTED 04/18/24 21:59 Blood Culture - Preliminary Blood SPECIMEN COLLECTED A&P Assessment and plan (1) Hypertension: Qualifiers: Hypertension type: primary hypertension Qualified Code(s): I10 - Essential (primary) hypertension (2) Decreased cardiac ejection fraction: (3) Thoracic aortic aneurysm: Qualifiers: Presence of rupture: without rupture Qualified Code(s): I71.2 - Thoracic aortic aneurysm, without rupture (4) Cardiac 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: (5) Unilateral carotid artery disease: (6) Acquired hypothyroidism: (7) GERD (gastroesophageal reflux disease): (8) Chronic kidney disease: Qualifiers: Chronic kidney disease stage: stage 2 (mild) Qualified Code(s): N18.2 - Chronic kidney disease, stage 2 (mild) (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: (10) Obstructive sleep apnea: (11) Dizziness: (12) Dehydration: (13) Pneumonia: Plan Delirium with pneumonia Start ceftriaxone and doxycycline No signs of UTI No signs of meningitis or stroke Respiratory panel came back negative to my surprise, he has bilateral infiltrate, his symptoms and signs seem very typical for a viral infection I would not repeat Respiratory over this point Continue antibiotics Acute hypoxia related to pneumonia: Wean oxygen to room air when possible, currently on 2 L no active distress Requested D-dimer DuoNeb treatment Chronic kidney disease: Creatinine is baseline CT abdomen pelvis did not show any obstructive nephropathy: Chronic indwelling catheter: BPH: Has indwelling catheter for last 5 months, no signs of UTI Follows up with [facility] Patient had an appointment on 04/22 for TURP CHF: Reduced EF: Status post AICD Clinically looks dehydrated I will discontinue fluids around 3 PM Urine looks concentrated Hypertension: Continue antihypertensive regimen Continue with thyroxine DNR/DNI Cardiac diet PT PDMP PDMP Reviewed: Not Reviewed Attestations Medical Necessity Statement*: Anticipating more than 2 midnights for management of pneumonia, generalized weakness and fatigue Coding Level of Care Code Acute Code for Chg Fwd Diagnoses Primary hypertension I10 Hypertension type: primary hypertension Decreased cardiac ejection fraction R93.1 Thoracic aortic aneurysm without rupture I71.2 Presence of rupture: without rupture Cardiac 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 Z95.810 Unilateral carotid artery disease I77.9 Acquired hypothyroidism E03.9 GERD (gastroesophageal reflux disease) K21.9 Stage 2 chronic kidney disease N18.2 Chronic kidney disease stage: stage 2 (mild) Lacunar stroke of right subthalamic region I63.81 Obstructive sleep apnea G47.33 Dizziness R42 Dehydration E86.0 Pneumonia J18.9
[2024-04-19 01:44] LABS: Procalcitonin 0.06 ng/mL (0-0.5)
[2024-04-19] MEDS: potassium chloride ER 20 mEq Tablet PO (01:48)
[2024-04-19] MEDS: sodium chloride 0.9% 1,000 ML 75 ML IV ×2 (01:48→16:40)
[2024-04-19 02:01] LABS: D Dimer 13.94 ug/mLFEU (0-0.59)
[2024-04-19 03:58] LABS: Basophils % 0.2 %; Eosinophils # 0.6 10^3/uL (0.0-0.8); Eosinophils % 7.9 %; Hematocrit 40.8 % (37-53); Lymphocytes # 0.4 10^3/uL (0.8-4.8); Lymphocytes % 5.3 %; Mean Corpuscular HGB Conc 34.8 g/dL (30-55); Mean Corpuscular Hemoglobin 32.9 pg (27-33); Mean Corpuscular Volume 94.7 fl (82-101); Mean Platelet Volume 11.2 fL (7.4-10.4); Monocytes # 1.1 10^3/uL (0.2-0.9); Neutrophils # 5.93 10^3/uL (1.8-7.7); Neutrophils % 73.4 %; Nucleated Red Blood Cells % 0 %; Platelet Count 108 10^3/cmm (157-399); Red Blood Count 4.31 10^6/uL (3.85-5.65); Red Cell Distribution Width 12.5 % (12.1-15.1); White Blood Count 8.09 10^3/uL (3.29-11.43)
[2024-04-19 04:17] LABS: Anion Gap 16.9 (5-19); Blood Urea Nitrogen 24 mg/dL (8-23); C Reactive Protein 54.6 mg/L (0.0-4.9); Calcium 8.1 mg/dL (8.5-10.5); Carbon Dioxide 21 mmol/L (22-29); Chloride 108 mmol/L (98-107); Glucose 135 mg/dL (65-115); Magnesium 1.9 mg/dL (1.7-2.3); Osmolality Calculated 300 mOsm/kg (285-295); Potassium 3.9 mmol/L (3.5-5.1); Sodium 142 mmol/L (136-145)
[2024-04-19] MEDS: amlodipine 5 mg Tablet PO (07:39)
[2024-04-19] MEDS: aspirin 81 mg Chew Tablet PO (07:40)
[2024-04-19] MEDS: finasteride 5 mg Tablet PO (08:59)
[2024-04-19] MEDS: carvedilol 25 mg Tablet 12.5 MG PO (08:59)
[2024-04-19] MEDS: sennosides-docusate Tablet 1 TAB PO (08:59)
[2024-04-19] MEDS: levothyroxine 50 mcg Tablet PO (08:59)
[2024-04-19] MEDS: acetaminophen 500 mg Tablet PO (09:00)
[2024-04-19] MEDS: isosorbide mononitrate ER 30 mg Tablet 15 MG PO (09:00)
[2024-04-19] MEDS: linezolid premix 600 MG/300 ML PREMIX 300 MG IV ×2 (09:01→20:41)
--- NOTE | 2024-04-19 09:48 | P.PN_ITS ---
Subjective 2 Subjective: Patient was seen this morning, currently sleeping, he was aroused, he is alert oriented x 2, follows commands, denies any chest pain, palpitations no abdominal pain he is having his breakfast does report a cough, no nausea, vomiting Vitals/I&O/Wt Last Vital Signs Temp 100.2 F H 04/18/24 20:56 Pulse 78 04/19/24 07:40 Resp 16 04/19/24 06:45 BP 136/91 04/19/24 07:40 Pulse Ox 94 04/19/24 07:40 O2 Del Method Nasal Cannula 04/19/24 06:45 O2 Flow Rate 2 04/19/24 06:45 04/18/24 04/19/24 04/19/24 22:59 06:59 14:59 Intake Total 0 / 0 1050 / 1050 Balance 0 / 0 1050 / 1050 Weight last 48 hrs Weight 77.111 kg Weight 77.111 kg Physical Exam 2 Const: COMMON NORMALS: no acute distress ORIENTATION/CONSCIOUSNESS: Yes awake, Yes oriented to person and Yes oriented to place Eye: COMMON NORMALS: Equal, round and reactive pupils present PUPIL: Yes Equal, round and reactive pupils present Resp: COMMON NORMALS: normal respiratory effort, No retractions and No use of accessory muscles AUSCULTATION: wheezes Cardio: COMMON NORMALS: regular rate, regular rhythm, S1 normal heart sound present and S2 normal heart sound present RATE: regular rate RHYTHM: r egular rhythm HEART SOUNDS: S1 normal heart sound present and S2 normal heart sound present GI: COMMON NORMALS: Normal to inspection, nondistended, normoactive bowel sounds present and non-tender Extremity: COMMON NORMALS: no pedal edema Neuro: SENSORIUM/ORIENTATION: Yes oriented to person and Yes oriented to place Data 04/19/24 03:44 04/19/24 03:44 Micro: Microbiology 04/18/24 21:49 Blood Culture - Preliminary Blood SPECIMEN COLLECTED 04/18/24 21:59 Blood Culture - Preliminary Blood SPECIMEN COLLECTED A&P Assessment and plan (1) Hypertension: Qualifiers: Hypertension type: primary hypertension Qualified Code(s): I10 - Essential (primary) hypertension (2) Decreased cardiac ejection fraction: (3) Thoracic aortic aneurysm: Qualifiers: Presence of rupture: without rupture Qualified Code(s): I71.2 - Thoracic aortic aneurysm, without rupture (4) Cardiac 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: (5) Unilateral carotid artery disease: (6) Acquired hypothyroidism: (7) GERD (gastroesophageal reflux disease): (8) Chronic kidney disease: Qualifiers: Chronic kidney disease stage: stage 2 (mild) Qualified Code(s): N18.2 - Chronic kidney disease, stage 2 (mild) (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: (10) Obstructive sleep apnea: (11) Dizziness: (12) Dehydration: (13) Pneumonia: Plan Delirium with pneumonia Has a history of Enterococcus faecalis VRE, Pseudomonas Has a history of UTIs urine culture pending No signs of meningitis or stroke CT abdomen pelvis showing mild infiltrates bilateral lower lobes Will broaden antibiotic coverage to Zyvox, Zosyn Will change diet to dysphagia level 4 diet aspiration precautions speech therapy eval Follow blood cultures Follow urine culture Follow sputum cultures Acute hypoxia related to pneumonia: As above DuoNeb treatment Chronic kidney disease: Monitor Chronic indwelling catheter: BPH: Has indwelling catheter for last 5 months, follow urine culture -Will have to find out when the Cutler catheter was changed Follows up with [facility] Patient had an appointment on 04/[address]/CT abdomen pelvis w con* [id number] IMPRESSION: 1. Extensive colonic diverticulosis without evidence of acute diverticulitis. 2. Punctate bilateral nephroliths. No obstructive uropathy. 3. Bilateral renal cysts along with a too small to characterize hypodense lesion on the right side x 7 mm in size. 4. Infrarenal abdominal aortic aneurysm x 3.6 cm. 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 History of CAD status post BiPAP surgery History of TAVR History of CKD DNR/DNI Cardiac diet PT PDMP PDMP Reviewed: Not Reviewed Attestations 2 Medical Necessity Statement*: Patient requires hospitalization for pneumonia requiring IV antibiotics concerns for possible UTI with history of chronic indwelling catheter requiring IV antibiotics Diagnoses Primary hypertension I10 Hypertension type: primary hypertension Decreased cardiac ejection fraction R93.1 Thoracic aortic aneurysm without rupture I71.2 Presence of rupture: without rupture Cardiac 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 Z95.810 Unilateral carotid artery disease I77.9 Acquired hypothyroidism E03.9 GERD (gastroesophageal reflux disease) K21.9 Stage 2 chronic kidney disease N18.2 Chronic kidney disease stage: stage 2 (mild) Lacunar stroke of right subthalamic region I63.81 Obstructive sleep apnea G47.33 Dizziness R42 Dehydration E86.0 Pneumonia J18.9
[2024-04-19] MEDS: piperacillin-tazobactam 3.375 GM in sodium chloride 0.9% (plus) 50 ML IV ×2 (11:34→22:03)
[2024-04-19] MEDS: tamsulosin 0.4 mg Capsule PO (17:56)
[2024-04-20 04:00] VITALS: BP 129/75; RESP 16; TEMP 36.9; O2SAT 94
[2024-04-20] MEDS: piperacillin-tazobactam 3.375 GM in sodium chloride 0.9% (plus) 50 ML IV ×3 (04:40→21:50)
[2024-04-20] MEDS: aspirin 81 mg Chew Tablet PO (04:41)
[2024-04-20] MEDS: levothyroxine 50 mcg Tablet PO (04:41)
[2024-04-20] MEDS: amlodipine 5 mg Tablet PO (04:41)
[2024-04-20 05:38] LABS: Basophils % 0.3 %; Eosinophils # 0.9 10^3/uL (0.0-0.8); Hematocrit 36.9 % (37-53); Lymphocytes # 0.7 10^3/uL (0.8-4.8); Lymphocytes % 11.4 %; Mean Corpuscular HGB Conc 34.4 g/dL (30-55); Mean Corpuscular Hemoglobin 33.3 pg (27-33); Mean Corpuscular Volume 96.9 fl (82-101); Mean Platelet Volume 11.6 fL (7.4-10.4); Monocytes # 0.8 10^3/uL (0.2-0.9); Neutrophils # 3.79 10^3/uL (1.8-7.7); Neutrophils % 60.8 %; Nucleated Red Blood Cells % 0 %; Platelet Count 101 10^3/cmm (157-399); Red Blood Count 3.81 10^6/uL (3.85-5.65); Red Cell Distribution Width 12.6 % (12.1-15.1); White Blood Count 6.23 10^3/uL (3.29-11.43)
[2024-04-20 06:01] LABS: Alanine Aminotransferase 9 U/L (0-41); Alkaline Phosphatase 69 U/L (40-130); Aspartate Amino Transferase 15 U/L (0-40); Blood Urea Nitrogen 26 mg/dL (8-23); Carbon Dioxide 21 mmol/L (22-29); Chloride 113 mmol/L (98-107); Creatinine Clr Calc Pharmacy 46.0471; Globulin 2.3 g/dL (1.3-4.6); Glucose 84 mg/dL (65-115); Osmolality Calculated 298 mOsm/kg (285-295); Phosphorus 2.3 mg/dL (2.5-4.5); Sodium 142 mmol/L (136-145); Total Bilirubin 0.6 mg/dL (0.15-1.2); Total Protein 5.3 g/dL (6.6-8.7)
[2024-04-20 07:40] VITALS: BP 135/81; PULSE 67; RESP 15; TEMP 37.1; O2SAT 93
[2024-04-20] MEDS: isosorbide mononitrate ER 30 mg Tablet 15 MG PO (09:45)
[2024-04-20] MEDS: finasteride 5 mg Tablet PO (09:46)
[2024-04-20] MEDS: carvedilol 25 mg Tablet 12.5 MG PO ×2 (09:46→18:08)
[2024-04-20] MEDS: linezolid premix 600 MG/300 ML PREMIX 300 MG IV ×2 (09:54→20:32)
--- NOTE | 2024-04-20 10:08 | PC.CHAP ---
Pastoral Care Encounter/Spiritual Assessment Type of Contact [] Declined assistant news director visit [] Patient/Family/Request visit [] Outpatient visit [] Follow-up visit [] Physician referral [] Code/Alert [x] Routine visit [] Staff referral [] Actively dying [] Patient sleeping [] Family support [] [] Out of room [] Palliative care [] [] Receiving care in room [] Pre-surgical visit [] Trauma [] Long length of stay [] ICU visit [] Other: Relational/Emotional Strength [] Patient feels connected with others/family/visitors/staff [] Distress [] Loneliness/isolation [] Abandonment Spirituality of Patient [x] Person of Irene [] Attends Advent of their Irene [x] Believes in Prayer [] Reads Bible or Gnosticist materials [] There are Spiritual issues to be addressed 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 Interventions [x] Prayer [x] Active listening [] Non-anxious presence [] Spiritual/emotional support [] Crisis/trauma care [] Spiritual counseling [] Bereavement support [] Provided bereavement packet [x] Provided Bible/devotional materials [] Provided toy/stuffed animal, coloring book to patient or family member [] Provided Communion [] Anointing/[place] [] Salvation [x] Completed spiritual assessment [] Other: Impact on Illness or Injury [] Angry [] Fearful [] Anxious [] Often cries [] Exhaustion [] Unable to work [] Unable to attend orthodox [] Unable to walk/stand [] Unable to read [] Unable to drive [] Unable to eat/drink [] Unable to sleep [] Unable to be with family [] Patient intubated [] Other: Summary Time spent with patient 10 min
[2024-04-20 12:04] VITALS: BP 148/86; PULSE 60; RESP 16; TEMP 36.5; O2SAT 96
[2024-04-20 12:42] VITALS: PULSE 60; RESP 18; O2SAT 96
[2024-04-20 15:19] VITALS: BP 137/80; PULSE 55; RESP 16; TEMP 36.8; O2SAT 95
--- NOTE | 2024-04-20 15:23 | PC.NURSE ---
Patient's Cutler catheter changed at this time. Patient tolerated well.
--- NOTE | 2024-04-20 15:26 | PC.NURSE ---
Patient does not wish to use SCD's through out the day as he gets up to use the bathroom.
[2024-04-20] MEDS: tamsulosin 0.4 mg Capsule PO (18:08)
[2024-04-20 19:49] VITALS: BP 151/85; PULSE 63; RESP 17; TEMP 36.9; O2SAT 95
--- NOTE | 2024-04-20 20:21 | P.PN_ITS ---
Subjective 2 Subjective: 83-year-old male with a past medical his tory of heart failure with ejection fraction 40-45%, 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 He was brought to the hospital yesterday due to worsening symptoms. He Noted difficulty getting out of bed and ambulating due to weakness. Associated symptoms include fever and chills. He denies pain. The patient lives at home. He has a history of enterococcus faecalis UTI and pseudomonas infection. His suprapubic catheter was last changed a couple weeks ago. Initial evaluation in the ER revealed: - Laboratory Findings: WBC 15, hemoglobi n 15, pneumatic 4.45, platelet count 122, sodium 142, potassium 3.8, chloride 107, bicarbonate 21, BUN 26, creatinine 1.3. Urinalysis showed negative nitrites and leukocyte esterase. Urine culture growing gram negative rods, 40,000-50,000 CFU. Blood cultures negative. - Imaging Studies: CT abdomen/pelvis enrique wed nonobstructive kidney stones. Chest x-ray with mild bilateral lower lobe infiltrates. The patient was started on ceftriaxone and azithromycin for presumed pneumonia, later changed to Zosyn 3.375 grams every 8 hours and Zyvox. He required supplemental oxygen initially but is no longer on oxygen. He remains on a dysphagia diet due to risk of aspiration. Vitals/I&O/Wt Last Vital Signs Temp 98.4 F 04/20/24 19:49 Pulse 63 04/20/24 19:49 Resp 17 04/20/24 19:49 BP 151/85 04/20/24 19:49 Pulse Ox 95 04/20/24 19:49 O2 Del Method Room Air 04/20/24 15:19 O2 Flow Rate 2 04/19/24 06:45 04/20/24 04/20/24 04/20/24 06:59 14:59 22:59 Intake Total 1250 / 4060 700 / 700 250 / 950 Output Total 800 / 1800 1500 / 1500 Balance 450 / 2260 -800 / -800 250 / -550 Weight last 48 hrs Weight 87.362 kg Weight 77.111 kg Weight 77.111 kg Physical Exam 2 Const: COMMON NORMALS: no acute distress ORIENTATION/CONSCIOUSNESS: Yes awake, Yes oriented to person and Yes oriented to place Eye: COMMON NORMALS: Equal, round and reactive pupils present PUPIL: Yes Equal, round and reactive pupils present Resp: COMMON NORMALS: normal respiratory effort, No retractions and No use of accessory muscles AUSCULTATION: wheezes Cardio: COMMON NORMALS: regular rate, regular rhythm, S1 normal heart sound present and S2 normal heart sound present RATE: regular rate RHYTHM: r egular rhythm HEART SOUNDS: S1 normal heart sound present and S2 normal heart sound present GI: COMMON NORMALS: Normal to inspection, nondistended, normoactive bowel sounds present and non-tender Extremity: COMMON NORMALS: no pedal edema Neuro: SENSORIUM/ORIENTATION: Yes oriented to person and Yes oriented to place Data 04/20/24 05:05 04/20/24 05:05 Micro: Microbiology 04/18/24 22:46 Urine Culture - Preliminary Urine Catheterized Gram Negative Rods 04/18/24 21:49 Blood Culture - Preliminary Blood NEGATIVE TO DATE 04/18/24 21:59 Blood Culture - Preliminary Blood NEGATIVE TO DATE A&P Assessment and plan (1) Hypertension: Qualifiers: Hypertension type: primary hypertension Qualified Code(s): I10 - Essential (primary) hypertension (2) Decreased cardiac ejection fraction: (3) Thoracic aortic aneurysm: Qualifiers: Presence of rupture: without rupture Qualified Code(s): I71.2 - Thoracic aortic aneurysm, without rupture (4) Cardiac 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: (5) Unilateral carotid artery disease: (6) Acquired hypothyroidism: (7) GERD (gastroesophageal reflux disease): (8) Chronic kidney disease: Qualifiers: Chronic kidney disease stage: stage 2 (mild) Qualified Code(s): N18.2 - Chronic kidney disease, stage 2 (mild) (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: (10) Obstructive sleep apnea: (11) Dizziness: (12) Dehydration: (13) Pneumonia: Plan Sepsis due to Urinary Tract Infection - 83-year-old male with multiple comorbidities and chronic indwelling trammell catheter presenting with sepsis secondary to urinary tract infection. Urine culture is growing gram negative rods. He was initially treated for pneumonia as well given infiltrates on imaging, but main source appears to be urine. Differential Diagnosis: 1. Catheter-associated UTI with gram negative organism, possibly pseudomonas given prior history 2. Pneumonia less likely given clinical improvement and negative blood cultures Plan: 1. Continue IV antibiotics with Zosyn and Zyvox pending final urine culture results 2. Daily labs to monitor WBC, renal function, electrolytes 3. Trammell catheter change 4. Reassess for transition to PO antibiotics and discharge planning in 24-48 hours if clinically improving Aspiration Pneumonia - Chest x-ray showed mild bilateral lower lobe infiltrates. Patient is on a dysphagia diet due to aspiration risk. Treated initially for pneumonia but improving on current antibiotic regimen. Plan: 1. Continue dysphagia diet precautions 2. Speech therapy consult to evaluate swallow function Acute Kidney Injury on Chronic Kidney Disease - Baseline CKD with creatinine 1.3 on admission, likely exacerbated by sepsis and hypovolemia. Plan: 1. Gentle IV fluids if hemodynamically stable 2. Strict I/Os, daily weights 3. Renal dosing of medications as needed 4. Avoid nephrotoxic agents Disposition and Follow-up - Anticipate discharge in 1-2 days if sepsis improves and tolerating PO - Follow up with PCP in 1 week - Referral to urology for management of chronic trammell catheter outpatient - Continue physical and occupational therapy PDMP PDMP Reviewed: Not Reviewed Attestations 2 Medical Necessity Statement*: Patient requires hospitalization for pneumonia requiring IV antibiotics concerns for possible UTI with history of chronic indwelling catheter requiring IV antibiotics Coding Level of Care Code Acute Code for Chg Fwd Diagnoses Primary hypertension I10 Hypertension type: primary hypertension Decreased cardiac ejection fraction R93.1 Thoracic aortic aneurysm without rupture I71.2 Presence of rupture: without rupture Cardiac 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 Z95.810 Unilateral carotid artery disease I77.9 Acquired hypothyroidism E03.9 GERD (gastroesophageal reflux disease) K21.9 Stage 2 chronic kidney disease N18.2 Chronic kidney disease stage: stage 2 (mild) Lacunar stroke of right subthalamic region I63.81 Obstructive sleep apnea G47.33 Dizziness R42 Dehydration E86.0 Pneumonia J18.9
[2024-04-21] VITALS: BP 122/65; PULSE 63; RESP 16; TEMP 36.9; O2SAT 95
[2024-04-21] MEDS: piperacillin-tazobactam 3.375 GM in sodium chloride 0.9% (plus) 50 ML IV (03:21)
[2024-04-21 04:00] VITALS: BP 149/88; PULSE 71; RESP 18; TEMP 37.1; O2SAT 97
[2024-04-21] MEDS: aspirin 81 mg Chew Tablet PO (05:25)
[2024-04-21] MEDS: amlodipine 5 mg Tablet PO (05:26)
[2024-04-21] MEDS: levothyroxine 50 mcg Tablet PO (05:26)
[2024-04-21 06:16] LABS: Basophils % 0.5 %; Eosinophils # 0.9 10^3/uL (0.0-0.8); Eosinophils % 13.8 %; Lymphocytes # 0.8 10^3/uL (0.8-4.8); Lymphocytes % 12.3 %; Mean Corpuscular HGB Conc 34.7 g/dL (30-55); Mean Corpuscular Hemoglobin 33.3 pg (27-33); Mean Corpuscular Volume 96.2 fl (82-101); Mean Platelet Volume 10.9 fL (7.4-10.4); Monocytes # 0.7 10^3/uL (0.2-0.9); Monocytes % 11.2 %; Neutrophils # 4.04 10^3/uL (1.8-7.7); Nucleated Red Blood Cells % 0 %; Platelet Count 129 10^3/cmm (157-399); Red Blood Count 4.47 10^6/uL (3.85-5.65); Red Cell Distribution Width 12.3 % (12.1-15.1); White Blood Count 6.51 10^3/uL (3.29-11.43)
[2024-04-21 06:46] LABS: Alanine Aminotransferase 9 U/L (0-41); Albumin Level 3.5 g/dL (3.5-5.2); Alkaline Phosphatase 81 U/L (40-130); Anion Gap 17.8 (5-19); Aspartate Amino Transferase 15 U/L (0-40); Blood Urea Nitrogen 20 mg/dL (8-23); Carbon Dioxide 21 mmol/L (22-29); Chloride 109 mmol/L (98-107); Creatinine Clr Calc Pharmacy 42.9962; Globulin 2.9 g/dL (1.3-4.6); Glucose 92 mg/dL (65-115); Magnesium 2.1 mg/dL (1.7-2.3); Osmolality Calculated 300 mOsm/kg (285-295); Phosphorus 2.5 mg/dL (2.5-4.5); Potassium 3.8 mmol/L (3.5-5.1); Sodium 144 mmol/L (136-145); Total Bilirubin 0.7 mg/dL (0.15-1.2); Total Protein 6.4 g/dL (6.6-8.7)
[2024-04-21 07:10] VITALS: BP 170/99; PULSE 68; RESP 16; TEMP 36.8; O2SAT 97
[2024-04-21] MEDS: isosorbide mononitrate ER 30 mg Tablet 15 MG PO (09:24)
[2024-04-21] MEDS: carvedilol 25 mg Tablet 12.5 MG PO (09:24)
[2024-04-21] MEDS: sennosides-docusate Tablet 1 TAB PO (09:25)
[2024-04-21] MEDS: finasteride 5 mg Tablet PO (09:25)
[2024-04-21 11:21] VITALS: BP 142/89; PULSE 64; RESP 16; TEMP 36.7; O2SAT 95
[2024-04-21 11:35] VITALS: BP 142/89; PULSE 64; RESP 16; TEMP 36.6; O2SAT 95
--- NOTE | 2024-05-01 12:06 | P.DS_ITS ---
Discharge Providers Date of Admission: 04/19/24 01:28 Date of Discharge: April 21, 2024 Attending Provider at Admission: Adam Irizarry MD Attending Provider at Discharge: Harleen Le Primary Care Provider: Aicha Moran MD Diagnoses at Discharge Discharge Diagnosis (1) Hypertension: Status: Acute Qualifiers: Hypertension type: primary hypertension Qualified Code(s): I10 - Essential (primary) hypertension (2) Decreased cardiac ejection fraction: Status: Acute (3) Thoracic aortic aneurysm: Status: Acute Qualifiers: Presence of rupture: without rupture Qualified Code(s): I71.2 - Thoracic aortic aneurysm, without rupture (4) Cardiac 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: Status: Acute (5) Unilateral carotid artery disease: Status: Acute (6) Acquired hypothyroidism: Status: Acute (7) GERD (gastroesophageal reflux disease): Status: Acute (8) Chronic kidney disease: Status: Acute Qualifiers: Chronic kidney disease stage: stage 2 (mild) Qualified Code(s): N18.2 - Chronic kidney disease, stage 2 (mild) (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: Status: Acute (10) Obstructive sleep apnea: Status: Acute (11) Dizziness: Status: Acute (12) Dehydration: Status: Resolved (13) Pneumonia: Status: Resolved Reason for Visit Reason for Visit: WEAKNESS Hospital Course Hospital Course 83-year-old male with a past medical history of heart failure with ejection fraction 40-45%, 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 He was brought to the hospital yesterday due to worsening symptoms. He Noted difficulty getting out of bed and ambulating due to weakness. Associated symptoms include fever and chills. He denies pain. The patient lives at home. He has a history of enterococcus faecalis UTI and pseudomonas infection. His Chronic indwelling catheter was last changed a couple weeks ago. Initial evaluation in the ER revealed: - Laboratory Findings: WBC 15, hemoglobin 15, pneumatic 4.45, platelet count 122, sodium 142, potassium 3.8, chloride 107, bicarbonate 21, BUN 26, creatinine 1.3. Urinalysis showed negative nitrites and leukocyte esterase. Urine culture growing gram negative rods, 40,000-50,000 CFU. Blood cultures negative. - Imaging Studies: CT abdomen/pelvis showed nonobstructive kidney stones. Chest x-ray with mild bilateral lower lobe infiltrates. The patient was started on ceftriaxone and azithromycin for presumed pneumonia, later changed to Zosyn 3.375 grams every 8 hours and Zyvox. He required supplemental oxygen initially but is no longer on oxygen. He remains on a dysphagia diet due to risk of aspiration. Sepsis due to Urinary Tract Infection - 83-year-old male with multiple comorbidities and chronic indwelling trammell catheter presenting with sepsis secondary to urinary tract infection. Urine culture is growing Pseudomonas. He was initially treated for pneumonia as well given infiltrates on imaging, but main source appears to be urine. clinically patient was noted to have significant improvement. He was on IV antibiotics during hospitalization however at the time of discharge attempted to changing to p.o. Levaquin. Patient denied any fever or chills. No leukocytosis. Respiratory status was also stable. Was started on dysphagia diet. Did not have any oxygen requirements. Also did not have any respiratory complaints the time of discharge. I had recommended that patient consider shelter facility however he declined. Discharge home with close outpatient follow-up recommendations. Physical Exam Const: COMMON NORMALS: no acute distress ORIENTATION/CONSCIOUSNESS: Yes awake, Yes oriented to person and Yes oriented to place Eye: COMMON NORMALS: Equal, round and reactive pupils present PUPIL: Yes Equal, round and reactive pupils present Resp: COMMON NORMALS: normal respiratory effort, No retractions and No use of accessory muscles AUSCULTATION: wheezes Cardio: COMMON NORMALS: regular rate, regular rhythm, S1 normal heart sound present and S2 normal heart sound present RATE: regular rate RHYTHM: regular rhythm HEART SOUNDS: S1 normal heart sound present and S2 normal heart sound present GI: COMMON NORMALS: Normal to inspection, nondistended, normoactive bowel sounds present and non-tender Extremity: COMMON NORMALS: no pedal edema Neuro: SENSORIUM/ORIENTATION: Yes oriented to person and Yes oriented to place Discharge Data Studies Completed and Pending Completed Studies During Hospitalization Category Date Time Status CT abdomen pelvis w con* [id number] Urgent Cat Scan 04/18/24 21:43 Completed XR chest 1V portable [id number] Stat Exams 04/18/24 21:42 Completed Radiology Impressions Chest X-Ray 04/18/24 21:42 IMPRESSION: Acute bilateral lower lobe infiltrates. Abdomen/Pelvis CT 04/18/24 21:43 IMPRESSION: 1. Extensive colonic diverticulosis without evidence of acute diverticulitis. 2. Punctate bilateral nephroliths. No obstructive uropathy. 3. Bilateral renal cysts along with a too small to characterize hypodense lesion on the right side x 7 mm in size. 4. Infrarenal abdominal aortic aneurysm x 3.6 cm. 5. Mild infiltrates at the bilateral lower lobe. COMMENTS: Consistent with the [employer]'s Incidental Findings Committee white paper (J Am Nilson Radiol 2018): Any incidental renal lesion less than 1 cm or classified as too small to characterize, or any incidental cystic renal lesion characterized as simple-appearing, is likely benign. No follow-up imaging is recommended for these lesions per consensus recommendations based on imaging criteria. Laboratory Results WBC 6.51 10^3/uL (3.29-11.43) 04/21/24 05:55 RBC 4.47 10^6/uL (3.85-5.65) 04/21/24 05:55 Hgb 14.90 g/dL (11.27-16.99) 04/21/24 05:55 Hct 43.0 % (37-53) 04/21/24 05:55 MCV 96.2 fl (82-101) 04/21/24 05:55 MCH 33.3 pg (27-33) H 04/21/24 05:55 MCHC 34.7 g/dL (30-55) 04/21/24 05:55 RDW 12.3 % (12.1-15.1) 04/21/24 05:55 Plt Count 129 10^3/cmm (157-399) L 04/21/24 05:55 MPV 10.9 fL (7.4-10.4) H 04/21/24 05:55 Neut % (Auto) 62.0 % 04/21/24 05:55 Lymph % (Auto) 12.3 % 04/21/24 05:55 [place] % (Auto) 11.2 % 04/21/24 05:55 Eos % (Auto) 13.8 % 04/21/24 05:55 Baso % (Auto) 0.5 % 04/21/24 05:55 Neut # (Auto) 4.04 10^3/uL (1.8-7.7) 04/21/24 05:55 Lymph # (Auto) 0.8 10^3/uL (0.8-4.8) 04/21/24 05:55 [place] # (Auto) 0.7 10^3/uL (0.2-0.9) 04/21/24 05:55 Eos # (Auto) 0.9 10^3/uL (0.0-0.8) H 04/21/24 05:55 Baso # (Auto) 0.0 10^3/uL (0.0-0.1) 04/21/24 05:55 Nucleated RBC % (auto) 0 % 04/21/24 05:55 Nucleated RBCs # 0.0 /100WBC 04/21/24 05:55 D-Dimer 13.94 ug/mLFEU (0-0.59) H 04/18/24 21:49 Sodium 144 mmol/L (136-145) 04/21/24 05:55 Potassium 3.8 mmol/L (3.5-5.1) 04/21/24 05:55 Chloride 109 mmol/L (98-107) H 04/21/24 05:55 Carbon Dioxide 21 mmol/L (22-29) L 04/21/24 05:55 Anion Gap 17.8 (5-19) 04/21/24 05:55 BUN 20 mg/dL (8-23) 04/21/24 05:55 Creatinine 1.5 mg/dL (0.7-1.2) H 04/21/24 05:55 GFR Calculation Not Reportable 04/21/24 05:55 Glucose 92 mg/dL (65-115) 04/21/24 05:55 Calculated Osmolality 300 mOsm/kg (285-295) H 04/21/24 05:55 Lactic Acid 1.5 mmol/L (0.5-2.2) 04/18/24 21:59 Calcium 9.0 mg/dL (8.5-10.5) 04/21/24 05:55 Phosphorus 2.5 mg/dL (2.5-4.5) 04/21/24 05:55 Magnesium 2.1 mg/dL (1.7-2.3) 04/21/24 05:55 Total Bilirubin 0.7 mg/dL (0.15-1.2) 04/21/24 05:55 AST 15 U/L (0-40) 04/21/24 05:55 ALT 9 U/L (0-41) 04/21/24 05:55 Alkaline Phosphatase 81 U/L (40-130) 04/21/24 05:55 C-Reactive Protein 54.6 mg/L (0.0-4.9) H 04/19/24 03:44 Total Protein 6.4 g/dL (6.6-8.7) L 04/21/24 05:55 Albumin 3.5 g/dL (3.5-5.2) 04/21/24 05:55 Globulin 2.9 g/dL (1.3-4.6) 04/21/24 05:55 Lipase 28 U/L (13-60) 04/18/24 21:59 Procalcitonin 0.06 ng/mL (0-0.5) 04/18/24 21:59 Urine Color Yellow (Yellow) 04/18/24 22:46 Urine Appearance Cloudy (CLEAR) A 04/18/24 22:46 Urine pH 5.5 (5-7) 04/18/24 22:46 Ur Specific [place] 1.064 (1.005-1.030) H 04/18/24 22:46 Urine Protein 3+ (Negative) A 04/18/24 22:46 Urine Glucose (UA) Negative (Normal) 04/18/24 22:46 Urine Ketones Negative (Negative) 04/18/24 22:46 Urine Blood 2+ (Negative) A 04/18/24 22:46 Urine Nitrate Negative (Negative) 04/18/24 22:46 Urine Bilirubin Negative (Negative) 04/18/24 22:46 Urine Urobilinogen 1.0 mg/dL (Negative) 04/18/24 22:46 Ur Leukocyte Esterase Negative (Negative) 04/18/24 22:46 Urine RBC 21-50 /hpf (0-2) H 04/18/24 22:46 Urine WBC 0-5 /hpf (0-5) 04/18/24 22:46 Ur Squamous Epith Cells 0-5 /hpf (0-5) 04/18/24 22:46 Uric Acid Crystals 15-25 /hpf H 04/18/24 22:46 Amorphous Sediment Not Reportable 04/18/24 22:46 Urine Bacteria 1+ /hpf (NONE) H 04/18/24 22:46 Hyaline Casts 2.46 /lpf 04/18/24 22:46 Coronavirus (PCR) Negative (Negative) 04/18/24 21:00 Influenza A (PCR) Negative (Negative) 04/18/24 21:00 Influenza Type B (PCR) Negative (Negative) 04/18/24 21:00 RSV (PCR) Negative (Negative) 04/18/24 21:00 Vitals Last Vital Signs Temp 98 F 04/21/24 11:35 Pulse 64 04/21/24 11:35 Resp 16 04/21/24 11:35 BP 142/89 04/21/24 11:35 Pulse Ox 95 04/21/24 11:35 O2 Del Method Room Air 04/21/24 11:21 O2 Flow Rate 2 04/19/24 06:45 Discharge Plan Discharge Patient Disposition: Home Condition: Stable Prescriptions: New carvedilol 25 mg Tablet 12.5 mg PO BID 14 Days Qty: 28 0RF Continued Synthroid 50 mcg tablet 50 mcg PO QAM Qty: 90 3RF furosemide 20 mg tablet 20 mg PO .MON/WED/FRI/SUN Qty: 90 3RF amlodipine 5 mg tablet 5 mg PO QAM Qty: 90 3RF aspirin 81 mg Tablet,Chewable 81 mg PO QAM Qty: 90 3RF isosorbide mononitrate 30 mg tablet extended release 24 hr 15 mg PO DAILY Qty: 90 3RF finasteride 5 mg tablet 5 mg PO DAILY Men's Daily Formula 400-20-300 mcg Tablet 1 tab PO QAM tamsulosin 0.4 mg capsule 0.4 mg PO QPM Discontinued carvedilol 25 mg tablet 25 mg PO BID No Action pantoprazole [Protonix] 40 mg tablet,delayed release (DR/EC) 40 mg PO QAM Qty: 60 0RF Rx Instructions: Twice daily for next 2 weeks followed by once daily Discharge Orders: Discharge Order (Routine); Ordered 04/21/24 Ordered By: Harleen Le Referrals: Aicha Moran MD [Primary Care Provider] - (We have notified your physician's clinic of the need for a follow-up appointment to be scheduled. If you have not heard from them within the next 2 business days, please call them directly. ) Discharge Diet: Usual diet Discharge Activity: Increase activity as tolerated Patient Instructions: Levofloxacin (By mouth) (Levaquin, Levaquin Leva-geovanni), Carvedilol (By mouth), Opioid Safety, Pneumonia Stoplight Discharge Attestations Time Spent in Discharge Care*: greater than 30 min Status at Discharge: Cognitive status at discharge: cognitively intact , Behavioral status at discharge: cooperative , Functional status at discharge: independent ambulation , Overall status at discharge: patient is progressing back to baseline Quality Metrics Clinical Quality Measures [ No reported AMI, CVA or VTE this stay] Coding Level of Care Code Acute Code for Chg Fwd Diagnoses Primary hypertension I10 Hypertension type: primary hypertension Decreased cardiac ejection fraction R93.1 Thoracic aortic aneurysm without rupture I71.2 Presence of rupture: without rupture Cardiac 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 Z95.810 Unilateral carotid artery disease I77.9 Acquired hypothyroidism E03.9 GERD (gastroesophageal reflux disease) K21.9 Stage 2 chronic kidney disease N18.2 Chronic kidney disease stage: stage 2 (mild) Lacunar stroke of right subthalamic region I63.81 Obstructive sleep apnea G47.33 Dizziness R42 Dehydration E86.0 Pneumonia J18.9
== END 2024-04-21 11:44 | disposition home or self-care (01) | DRG 698 ==
LOC: ER 04-19 01:43 → MEDSURG 04-19 05:08
PROVIDERS: Family Medicine; Admitting Provider Internal Medicine; Emergency Provider Emergency Medicine; PCP Family Medicine; Visit Provider Hospitalist
DX: T83.518A Infection and inflammatory reaction due to other urinary catheter, initial encounter (principal); A41.9 Sepsis, unspecified organism; I63.81 Other cerebral infarction due to occlusion or stenosis of small artery; J18.9 Pneumonia, unspecified organism; I13.0 Hypertensive heart and chronic kidney disease with heart failure and stage 1 through stage 4 chronic kidney disease, or unspecified chronic kidney disease; I50.22 Chronic systolic (congestive) heart failure; I69.954 Hemiplegia and hemiparesis following unspecified cerebrovascular disease affecting left non-dominant side; F05 Delirium due to known physiological condition; Y73.8 Miscellaneous gastroenterology and urology devices associated with adverse incidents, not elsewhere classified; N18.2 Chronic kidney disease, stage 2 (mild); I71.60 Thoracoabdominal aortic aneurysm, without rupture, unspecified; Z95.810 Presence of automatic (implantable) cardiac defibrillator; I77.9 Disorder of arteries and arterioles, unspecified; E03.9 Hypothyroidism, unspecified; K21.9 Gastro-esophageal reflux disease without esophagitis; G47.33 Obstructive sleep apnea (adult) (pediatric); E86.0 Dehydration; I25.10 Atherosclerotic heart disease of native coronary artery without angina pectoris; Z95.1 Presence of aortocoronary bypass graft; Z95.5 Presence of coronary angioplasty implant and graft; Z95.3 Presence of xenogenic heart valve; Z87.440 Personal history of urinary (tract) infections; R09.02 Hypoxemia; G47.00 Insomnia, unspecified; Z86.711 Personal history of pulmonary embolism; K44.9 Diaphragmatic hernia without obstruction or gangrene; B96.5 Pseudomonas (aeruginosa) (mallei) (pseudomallei) as the cause of diseases classified elsewhere
CPT/HCPCS: 36415; 71045; 74177; 80048; 80053; 81001; 83605; 83690; 83735; 84100; 84145; 85025; 85378; 86140; 87040; 87077; 87086; 87186; 87637; 92523; 92610; 96365; 97161; 99285; J2020; J2543; J7030

== ENCOUNTER 2024-04-23 11:03 | Inpatient (IN) | payer MEDICARE, SELFPAY ==
[2024-04-23] VITALS (16 sets, daily range): BP systolic 115–186; BP diastolic 46–95; PULSE 79–91; RESP 17–26; TEMP 36.6–36.7; O2SAT 92–97; BMI 22.4
--- NOTE | 2024-04-23 11:50 | XR_ITS ---
WS: [id number] XR chest 1V portable [id number] REASON FOR EXAM: dyspnea/cough FINDINGS: Cardiac device over the left chest with 4 leads to the right heart, one to the atrium and 3 to the right ventricle. Sternal sutures and previous aorto coronary artery bypass surgery. Aortic stent graft. Moderate tortuosity of the thoracic aorta. No acute pulmonary parenchymal or pleural abnormality is identified. The chest is unchanged compared to presumably normal baseline to 01/24/2024. XR/XR chest 1V portable [id number] IMPRESSION: Stable chest without acute abnormality.
[2024-04-23 11:59] LABS: Basophils % 0.2 %; Eosinophils # 0.1 10^3/uL (0.0-0.8); Eosinophils % 0.7 %; Hematocrit 41.6 % (37-53); Lymphocytes # 0.3 10^3/uL (0.8-4.8); Lymphocytes % 1.5 %; Mean Corpuscular HGB Conc 34.9 g/dL (30-55); Mean Corpuscular Hemoglobin 32.5 pg (27-33); Mean Corpuscular Volume 93.3 fl (82-101); Mean Platelet Volume 11.1 fL (7.4-10.4); Monocytes # 0.6 10^3/uL (0.2-0.9); Monocytes % 3.8 %; Neutrophils # 15.05 10^3/uL (1.8-7.7); Neutrophils % 93.4 %; Nucleated Red Blood Cells % 0 %; Platelet Count 132 10^3/cmm (157-399); Red Blood Count 4.46 10^6/uL (3.85-5.65); Red Cell Distribution Width 12.3 % (12.1-15.1); White Blood Count 16.13 10^3/uL (3.29-11.43)
--- NOTE | 2024-04-23 12:00 | ECG_ITS ---
[facility]23 Pat Name: Eliza Grimm Department: Room: Gender: Male Store Leader: : 1940 Requested By: Alex Broderick Order Number: [id number] Reading MD: CIRO GARRIDO Measurements Intervals [place] Rate: 85 P: 27 NE: 220 QRS: 267 QRSD: 158 T: 60 QT: 412 QTc: 491 Interpretive Statements ELECTRONIC VENTRICULAR PACEMAKER ABNORMAL RHYTHM ECG Compared to ECG 01/24/2024 09:13:13 Atrial-paced complex(es) or rhythm no longer present Electronically Signed On 04-25-2024 19:30:59 HEALTH AND SAFETY TRAINER by CIRO GARRIDO [email or web address]
[2024-04-23 12:21] LABS: Alanine Aminotransferase 16 U/L (0-41); Albumin Level 3.7 g/dL (3.5-5.2); Alkaline Phosphatase 74 U/L (40-130); Anion Gap 19.3 (5-19); Aspartate Amino Transferase 22 U/L (0-40); Blood Urea Nitrogen 28 mg/dL (8-23); Calcium 8.8 mg/dL (8.5-10.5); Carbon Dioxide 21 mmol/L (22-29); Chloride 103 mmol/L (98-107); Glucose 144 mg/dL (65-115); Osmolality Calculated 298 mOsm/kg (285-295); Potassium 3.3 mmol/L (3.5-5.1); Sodium 140 mmol/L (136-145); Total Bilirubin 0.7 mg/dL (0.15-1.2); Total Protein 6.7 g/dL (6.6-8.7)
[2024-04-23 12:55] LABS: Influenza A NEGATIVE (Negative); Influenza B NEGATIVE (Negative); Respiratory Syncytial Virus Ce NEGATIVE (Negative); SARS-CoV-2 PCR NEGATIVE (Negative)
--- NOTE | 2024-04-23 13:48 | W.ED.WEAKNES ---
HPI - Weakness General: Chief complaint: Weakness Stated complaint: pneumonia, weakness Time Seen by Provider: 04/23/24 11:49 History of Present Illness: 83-year-old male was recently hospitalized for pneumonia and was discharged 3 days ago. Presents back to the emergency room stating he does not feel good. He is difficult to get him to isolate specifically what is wrong he denies any chest pain or abdominal pain he states he still has a cough and some mild shortness of breath. Denies any dysuria urgency or frequency nausea vomiting or diarrhea no hematochezia melena hematemesis coffee-ground emesis. No fever that he is aware of. He was discharged home on levofloxacin which she is still taking. Associated symptoms: Denies chest pain, chills, dysuria or fever(s) Review of Systems Const: Denies: fever(s) or chills Card: Denies: chest pain Resp: Reports: dyspnea and wheezing GI: Denies: abdominal pain : Denies: dysuria, urinary frequency or urinary urgency Musc: Denies: neck pain or back pain Skin/Breast: Denies: rash PFSH ED PFSH: Medical History 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 Seborrheic keratoses Stroke Dizziness and giddiness Fatigue Dyslipidemia Diverticulosis Hiatal hernia History of pulmonary embolism History of Sindy-Kirk syndrome Chronic kidney disease Insomnia GERD (gastroesophageal reflux disease) Systolic congestive heart failure Thoracic aortic aneurysm CAD (coronary artery disease) Surgical History Status post transcatheter aortic valve replacement (TAVR) using bioprosthesis aortic stenosis History of drainage of abscess Percutaneous, right lower quadrant suspected appendiceal abscess History of cataract surgery Bilateral History of coronary artery stent placement Reports a total of 3 stents after her last CABG done in [facility] Dr. Rogers [facility] History of coronary artery bypass graft 1996 in 2010 -- 3 vessels total History of cholecystectomy Family History Mother Diabetes Stroke Father Gallbladder disease Brother Chronic kidney disease (CKD) Diabetes Denies family history of CAD (coronary artery disease) Clotting disorder Dementia Suicide Anesthesia complication Bleeding disorder Lung disease Cancer Social History Smoking and tobacco/nicotine status: never used tobacco/nicotine Alcohol intake: never Substance/Drug Use: never Caregiver/support person: Yes Household members: spouse Physical Exam Const: GENERAL APPEARANCE: cooperative ORIENTATION/CONSCIOUSNESS: Yes awake HENMT: COMMON NORMALS: normocephalic and atraumatic HEAD & SCALP: normocephalic and atraumatic Resp: AUSCULTATION: wheezes and diminished lung sounds Cardio: COMMON NORMALS: regular rate, regular rhythm and No murmurs present (Cardio) RATE: regular rate and tachycardic RHYTHM: regular rhythm GI: COMMON NORMALS: Soft to palpation and No hepatosplenomegaly present AUSCULTATION: Yes normoactive bowel sounds PALPATION: Yes Soft to palpation, No Tenderness to palpation present (GI), No Guarding due to palpation present (GI) and Yes No hepatosplenomegaly present Extremity: COMMON NORMALS: normal to inspection, capillary refill normal, no clubbing, cyanosis or edema, no calf tenderness and no pedal edema Skin: COMMON NORMALS: no rashes or lesions noted GENERAL SKIN EXAM: no rashes or lesions noted Course Vital Signs: Vital signs: Vital Signs Temperature 98.3 F 04/24/24 03:53 Pulse Rate 55 L 04/24/24 03:53 Respiratory Rate 17 04/24/24 03:53 Blood Pressure 136/71 04/24/24 03:53 Pulse Oximetry 91 04/24/24 03:53 Oxygen Delivery Me thod Room Air 04/24/24 03:53 MDM - Weakness Medical Decision Making Unexplained leukocytosis. Patient has not been on any steroids recently. Renal function is slightly better than his usual days. Concerned about resurgence of pneumonia or his cystitis. He did have some resistant bacteria and cystitis will place on observation restart antibiotics cussed with hospitalist orders written Medical Records I reviewed the patient's medical records. Lab Data I reviewed the patient's lab results. 04/24/24 04:03 04/24/24 04:03 Radiology Impressions Chest X-Ray 04/23/24 11:50 IMPRESSION: Stable chest without acute abnormality. Laboratory Results WBC 16.13 10^3/uL (3.29-11.43) H 04/23/24 11:14 RBC 4.46 10^6/uL (3.85-5.65) 04/23/24 11:14 Hgb 14.50 g/dL (11.27-16.99) 04/23/24 11:14 Hct 41.6 % (37-53) 04/23/24 11:14 MCV 93.3 fl (82-101) 04/23/24 11:14 MCH 32.5 pg (27-33) 04/23/24 11:14 MCHC 34.9 g/dL (30-55) 04/23/24 11:14 RDW 12.3 % (12.1-15.1) 04/23/24 11:14 Plt Count 132 10^3/cmm (157-399) L 04/23/24 11:14 MPV 11.1 fL (7.4-10.4) H 04/23/24 11:14 Neut % (Auto) 93.4 % 04/23/24 11:14 Lymph % (Auto) 1.5 % 04/23/24 11:14 [place] % (Auto) 3.8 % 04/23/24 11:14 Eos % (Auto) 0.7 % 04/23/24 11:14 Baso % (Auto) 0.2 % 04/23/24 11:14 Neut # (Auto) 15.05 10^3/uL (1.8-7.7) H 04/23/24 11:14 Lymph # (Auto) 0.3 10^3/uL (0.8-4.8) L 04/23/24 11:14 [place] # (Auto) 0.6 10^3/uL (0.2-0.9) 04/23/24 11:14 Eos # (Auto) 0.1 10^3/uL (0.0-0.8) 04/23/24 11:14 Baso # (Auto) 0.0 10^3/uL (0.0-0.1) 04/23/24 11:14 Nucleated RBC % (auto) 0 % 04/23/24 11:14 Nucleated RBCs # 0.0 /100WBC 04/23/24 11:14 Sodium 140 mmol/L (136-145) 04/23/24 11:14 Potassium 3.3 mmol/L (3.5-5.1) L 04/23/24 11:14 Chloride 103 mmol/L (98-107) 04/23/24 11:14 Carbon Dioxide 21 mmol/L (22-29) L 04/23/24 11:14 Anion Gap 19.3 (5-19) H 04/23/24 11:14 BUN 28 mg/dL (8-23) H 04/23/24 11:14 Creatinine 1.6 mg/dL (0.7-1.2) H 04/23/24 11:14 GFR Calculation Not Reportable 04/23/24 11:14 Glucose 144 mg/dL (65-115) H 04/23/24 11:14 Calculated Osmolality 298 mOsm/kg (285-295) H 04/23/24 11:14 Lactic Acid 2.2 mmol/L (0.5-2.2) 04/23/24 15:12 Calcium 8.8 mg/dL (8.5-10.5) 04/23/24 11:14 Total Bilirubin 0.7 mg/dL (0.15-1.2) 04/23/24 11:14 AST 22 U/L (0-40) 04/23/24 11:14 ALT 16 U/L (0-41) 04/23/24 11:14 Alkaline Phosphatase 74 U/L (40-130) 04/23/24 11:14 Total Protein 6.7 g/dL (6.6-8.7) 04/23/24 11:14 Albumin 3.7 g/dL (3.5-5.2) 04/23/24 11:14 Globulin 3.0 g/dL (1.3-4.6) 04/23/24 11:14 Urine Color Yellow (Yellow) 04/23/24 14:00 Urine Appearance Slightly cloudy (CLEAR) 04/23/24 14:00 Urine pH 5 (5-7) 04/23/24 14:00 Ur Specific [place]igh 1.030 (1.005-1.030) 04/23/24 14:00 Urine Protein 3+ (Negative) A 04/23/24 14:00 Urine Glucose (UA) Norm (Normal) 04/23/24 14:00 Urine Ketones Negative (Negative) 04/23/24 14:00 Urine Blood 3+ (Negative) A 04/23/24 14:00 Urine Nitrate Negative (Negative) 04/23/24 14:00 Urine Bilirubin Neg (Negative) 04/23/24 14:00 Urine Urobilinogen Norm mg/dL (Negative) 04/23/24 14:00 Ur Leukocyte Esterase Negative (Negative) 04/23/24 14:00 Urine RBC 6-10 /hpf (0-2) 04/23/24 14:00 Urine WBC 0-5 /hpf (0-5) 04/23/24 14:00 Ur Squamous Epith Cells 0-5 /hpf (0-5) 04/23/24 14:00 Amorphous Sediment Not Reportable 04/23/24 14:00 Urine Bacteria None seen /hpf (NONE) 04/23/24 14:00 Hyaline Casts 18.61 /lpf 04/23/24 14:00 Coronavirus (PCR) Negative (Negative) 04/23/24 11:56 Influenza A (PCR) Negative (Negative) 04/23/24 11:56 Influenza Type B (PCR) Negative (Negative) 04/23/24 11:56 RSV (PCR) Negative (Negative) 04/23/24 11:56 All radiology interpretation(s) finalized by discharge Discharge Plan Discharge Patient Disposition: Admitted As Inpatient Admit Provider: Harleen Le Clinical Impression: Leukocytosis, Generalized weakness, Chronic kidney disease, Catheter-associated urinary tract infection Condition: Stable Coding Level of Care Code ED [place] Manager for Chg Fwd Related Data Home Medications ?Medication ?Instructions ?Recorded ?Confirmed finasteride 5 mg tablet 5 mg PO DAILY 01/16/24 04/23/24 [id number] acid 400 1 tab PO QAM 01/24/24 04/23/24 mcg-vit K 20 mcg-lycop 300 mcg tablet (Men's Daily Formula) tamsulosin 0.4 mg capsule 0.4 mg PO QPM 01/24/24 04/23/24 Previous Rx's ?Medication ?Instructions ?Recorded aspirin 81 mg chewable tablet 81 mg PO QAM #90 tabs 12/25/21 levothyroxine 50 mcg tablet 50 mcg PO QAM #90 tabs 04/24/23 (Synthroid) isosorbide mononitrate 30 mg 15 mg (1/2 x 30 mg) PO DAILY #90 06/24/23 tablet,extended release 24 hr tabs furosemide 20 mg tablet 20 mg PO .MON/SAT/FRI/SUN #90 tabs 09/27/23 amlodipine 5 mg tablet 5 mg PO QAM #90 tabs 02/27/24 carvedilol 25 mg tablet 12.5 mg (1/2 x 25 mg) PO BID 14 04/21/24 days #28 tabs levofloxacin 750 mg tablet 750 mg PO .q48 5 days #3 tabs 04/21/24 Allergies Allergy/AdvReac Type Severity Reaction Status Date / Time rosuvastatin (From Crestor) Allergy Mild Makes me Verified 03/31/24 13:10 daria nitroglycerin Allergy Unknown Makes me Verified 03/31/24 13:10 wild amitriptyline AdvReac Made me Verified 03/31/24 13:10 weak and daria, wasn't thinking right rivaroxaban (From Xarelto) AdvReac black stool Verified 03/31/24 13:10
--- NOTE | 2024-04-23 14:02 | PC.NURSE ---
pt has trammell, pt catheter was empty, trammell clamped and after 15 minutes this nurse pulled urine from trammell port.
[2024-04-23 14:23] LABS: Bacteria Urine None Seen /hpf; Hyaline Casts Urine 18.61 /lpf; Squamous Epithelial Cell Urine 0-5 /hpf (0-5); WBC Urine 0-5 /hpf (0-5)
[2024-04-23 14:56] LABS: Blood Urine 3+ (Negative); Glucose Urine UA Norm (Normal); Ketones Urine Negative (Negative); Protein Urine 3+ (Negative); pH Urine 5 (5-7)
[2024-04-23 14:57] LABS: Add Urine Microscopic? YES; Bilirubin Urine Neg (Negative); Leukocyte Esterase Urine Negative (Negative); Nitrate Urine Negative (Negative); UA Slide Review UA Slide Review Perf; Urobilinogen Urine Norm (Negative)
[2024-04-23 15:05] LABS: Urine Appearance Slightly Cloudy (CLEAR); Urine Color Yellow (Yellow)
[2024-04-23 15:51] LABS: Lactic Sepsis W/Reflex 2.2 mmol/L (0.5-2.2)
[2024-04-23 17:16] LABS: Reflex Lactate Order REFLEX LACTIC ORDERD
--- NOTE | 2024-04-23 17:16 | PM.HP ---
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 The patient describes progressive loss of strength and inability to perform activities of daily living, such as opening his ostomy bag this morning. He denies any fever, chills, nausea, vomiting, abdominal pain, diarrhea, or constipation. The patient's suprapubic catheter was exchanged on 04/20/2024. Initial evaluation in the ER revealed: - Laboratory Findings: WBC 16, hemoglobin 14, hematocrit 41.6, platelet count 132, sodium 140, potassium 3.2, chloride 103, bicarbonate 21, anion gap 19, BUN 28, and creatinine 1.6 (baseline 1.3-1.5). Urinalysis did not show leukocyte esterase or nitrites. - Imaging Studies: Chest x-ray showed stable findings without acute abnormality. - Infectious Disease Testing: COVID-19, RSV, and Influenza A/B were negative. The patient was admitted for further evaluation and management of his generalized weakness and suspected incompletely treated urinary tract infection. Review of Systems General: Reports: 10 or more systems reviewed and unremarkable except in HPI and below Medications/Allergies Home Medications ?Medication ?Instructions ?Recorded ?Confirmed ?Last Taken ?Type aspirin 81 mg chewable tablet 81 mg PO QAM #90 tabs 12/25/21 04/23/24 04/22/24 Rx levothyroxine 50 mcg tablet 50 mcg PO QAM #90 tabs 04/24/23 04/23/24 04/22/24 Rx (Synthroid) isosorbide mononitrate 30 mg 15 mg (1/2 x 30 mg) PO DAILY #90 06/24/23 04/23/24 04/22/24 Rx tablet,extended release 24 hr tabs furosemide 20 mg tablet 20 mg PO .SAT/SAT/SAT/SAT #90 tabs 09/27/23 04/23/24 04/22/24 Rx finasteride 5 mg tablet 5 mg PO DAILY 01/16/24 04/23/24 04/22/24 History rluaprhw-tswnsvfj-bjgie acid 400 1 tab PO QAM 01/24/24 04/23/24 04/22/24 History mcg-vit K 20 mcg-lycop 300 mcg tablet (Men's Daily Formula) tamsulosin 0.4 mg capsule 0.4 mg PO QPM 01/24/24 04/23/24 04/22/24 History amlodipine 5 mg tablet 5 mg PO QAM #90 tabs 02/27/24 04/23/24 04/22/24 Rx carvedilol 25 mg tablet 12.5 mg (1/2 x 25 mg) PO BID 14 04/21/24 04/23/24 04/22/24 Rx days #28 tabs levofloxacin 750 mg tablet 750 mg PO .q48 5 days #3 tabs 04/21/24 04/23/24 04/22/24 Rx Allergies Allergy/AdvReac Type Severity Reaction Status Date / Time rosuvastatin (From Crestor) Allergy Mild Makes me Verified 03/31/24 13:10 daria nitroglycerin Allergy Unknown Makes me Verified 03/31/24 13:10 wild amitriptyline AdvReac Made me Verified 03/31/24 13:10 weak and daria, wasn't thinking right rivaroxaban (From Xarelto) AdvReac black stool Verified 03/31/24 13:10 PFSH Acute PFSH: Medical History 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 Seborrheic keratoses Stroke Dizziness and giddiness Fatigue Dyslipidemia Diverticulosis Hiatal hernia History of pulmonary embolism History of Sindy-Kirk syndrome Chronic kidney disease Insomnia GERD (gastroesophageal reflux disease) Systolic congestive heart failure Thoracic aortic aneurysm CAD (coronary artery disease) Surgical History Status post transcatheter aortic valve replacement (TAVR) using bioprosthesis aortic stenosis History of drainage of abscess Percutaneous, right lower quadrant suspected appendiceal abscess History of cataract surgery Bilateral History of coronary artery stent placement Reports a total of 3 stents after her last CABG done in [place], Dr. Rogers [facility] 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 History of cholecystectomy Family History Mother Diabetes Stroke Father Gallbladder disease Brother Chronic kidney disease (CKD) Diabetes Denies family history of CAD (coronary artery disease) Clotting disorder Dementia Suicide Anesthesia complication Bleeding disorder Lung disease Cancer Social History Smoking and tobacco/nicotine status: never used tobacco/nicotine Alcohol intake: never Substance/Drug Use: never Caregiver/support person: Yes Household members: spouse Vitals/I&O/Wt Last Vital Signs Temp 97.8 F 04/23/24 11:06 Pulse 81 04/23/24 17:00 Resp 20 H 04/23/24 16:33 BP 137/80 04/23/24 16:33 Pulse Ox 97 04/23/24 17:00 O2 Del Method Room Air 04/23/24 17:00 Weight last 48 hrs Weight 77.111 kg Physical Exam Narrative: - General: Elderly male, appears alert awake, using his phone sitting up, non-toxic - Cardiovascular: Regular rate and rhythm, no murmurs, rubs, or gallops - Respiratory: Clear to auscultation bilaterally, no wheezes, rales, or rhonchi - Gastrointestinal: Soft, non-tender, non-distended, bowel sounds present - Genitourinary: Suprapubic catheter in place, no erythema or discharge at insertion site - Musculoskeletal: Decreased strength in all extremities, left-sided weakness noted - Neurological: Alert and oriented, no focal deficits - Skin: Warm and dry, no rashes or lesions Data 04/23/24 11:14 04/23/24 11:14 Micro: Microbiology 04/23/24 16:42 Blood Culture - Preliminary Blood SPECIMEN COLLECTED 04/23/24 16:38 Blood Culture - Preliminary Blood SPECIMEN COLLECTED A&P Assessment and plan (1) Leukocytosis: (2) Generalized weakness: Plan Leukocytosis - 83-year-old male with chronic indwelling trammell catheter and recent hospitalization for urinary tract infection presents with generalized weakness despite antibiotics . Urine cultures during the previous admission grew Pseudomonas, which should have been covered by the prescribed antibiotics. Now afebrile, no evidence of infection on chest xray. Blood culture x2 drawn. Differential Diagnosis: 1. Incompletely treated urinary tract infection due to resistant organism or inadequate antibiotic course. 2. Secondary infection or sepsis from an alternative source. Plan: 1. Started on meropenem empirically 2. Obtain repeat urine cultures and sensitivities. 3. Monitor vital signs, white blood cell count, and clinical status closely over the next 24-48 hours. 4. Evaluate for alternative sources of infection if urine studies are unrevealing. Functional Decline - Progressive generalized weakness and inability to perform activities of daily living, likely multifactorial in the setting of acute illness and underlying comorbidities. Plan: 1.Consult physical therapy and occupational therapy for evaluation and rehabilitation. PDMP PDMP Reviewed: Not Reviewed Attestations Medical Necessity Statement*: Will need hospitalization for IV antibiotics Coding Level of Care Code Acute Code for Chg Fwd Diagnoses Leukocytosis D72.829 Generalized weakness R53.1
[2024-04-23] MEDS: heparin 5,000 unit/mL INJ 1 mL 5000 UNIT SUBCUT (18:15)
[2024-04-23 19:42] LABS: Lactic Acid level (Lactate) 1.4 mmol/L (0.5-2.2)
[2024-04-23] MEDS: meropenem 1,000 mg SDV 1000 MG IVP (19:56)
--- NOTE | 2024-04-23 20:07 | PC.NURSE ---
pt report called to [facility] [[email or web address]] med surg at 2005.
[2024-04-23] MEDS: carvedilol 25 mg Tablet 12.5 MG PO (20:47)
[2024-04-23] MEDS: tamsulosin 0.4 mg Capsule PO (20:47)
[2024-04-24] VITALS (9 sets, daily range): BP systolic 102–160; BP diastolic 60–82; PULSE 55–81; RESP 16–18; TEMP 36.6–37.2; O2SAT 91–95
[2024-04-24 05:12] LABS: Basophils % 0.3 %; Eosinophils # 0.8 10^3/uL (0.0-0.8); Eosinophils % 9.9 %; Hematocrit 39.7 % (37-53); Lymphocytes # 0.3 10^3/uL (0.8-4.8); Lymphocytes % 4.2 %; Mean Corpuscular Hemoglobin 32.3 pg (27-33); Mean Platelet Volume 11.4 fL (7.4-10.4); Monocytes # 0.5 10^3/uL (0.2-0.9); Neutrophils # 5.94 10^3/uL (1.8-7.7); Neutrophils % 78.2 %; Nucleated Red Blood Cells % 0 %; Platelet Count 113 10^3/cmm (157-399); Red Blood Count 4.18 10^6/uL (3.85-5.65); Red Cell Distribution Width 12.8 % (12.1-15.1); White Blood Count 7.59 10^3/uL (3.29-11.43)
[2024-04-24 05:45] LABS: Anion Gap 16.6 (5-19); Blood Urea Nitrogen 36 mg/dL (8-23); Calcium 8.8 mg/dL (8.5-10.5); Carbon Dioxide 23 mmol/L (22-29); Chloride 107 mmol/L (98-107); Creatinine Clr Calc Pharmacy 39.1094; Glucose 92 mg/dL (65-115); Osmolality Calculated 304 mOsm/kg (285-295); Potassium 3.6 mmol/L (3.5-5.1); Sodium 143 mmol/L (136-145)
[2024-04-24] MEDS: meropenem 1,000 mg SDV 1000 MG IVP ×2 (06:23→19:43)
[2024-04-24] MEDS: heparin 5,000 unit/mL INJ 1 mL 5000 UNIT SUBCUT ×2 (06:24→17:56)
[2024-04-24] MEDS: aspirin 81 mg Chew Tablet PO (06:24)
[2024-04-24] MEDS: levothyroxine 50 mcg Tablet PO (06:24)
[2024-04-24] MEDS: amlodipine 5 mg Tablet PO (06:24)
[2024-04-24] MEDS: pantoprazole DR 40 mg Tablet PO (09:14)
[2024-04-24] MEDS: carvedilol 25 mg Tablet 12.5 MG PO ×2 (09:14→17:56)
[2024-04-24] MEDS: finasteride 5 mg Tablet PO (09:15)
[2024-04-24] MEDS: tamsulosin 0.4 mg Capsule PO (17:56)
--- NOTE | 2024-04-24 19:43 | P.PN_ITS ---
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 The patient describes progressive loss of strength and inability to perform activities of daily living, such as opening his ostomy bag this morning. He denies any fever, chills, nausea, vomiting, abdominal pain, diarrhea, or constipation. The patient's suprapubic catheter was exchanged on 04/20/2024. Initial evaluation in the ER revealed: - Laboratory Findings: WBC 16, hemoglobi n 14, hematocrit 41.6, platelet count 132, sodium 140, potassium 3.2, chloride 103, bicarbonate 21, anion gap 19, BUN 28, and creatinine 1.6 (baseline 1.3-1.5). Urinalysis did not show leukocyte esterase or nitrites. - Imaging Studies: Chest x-ray showed st able findings without acute abnormality. - Infectious Disease Testing: COVID-19, RSV, and Influenza A/B were negative. The patient was admitted for further evaluation and management of his generalized weakness and suspected incompletely treated urinary tract infection. 04/24 Patient noted significant improvement in generalized weakness. Though he had experienced improvement in symptoms still stated he was not able to return home just yet. Refused to consider long term facility until seen by Physical therapy. Has not had any fever or chills overnight. Denied any chest pain or shortness of breath. No productive cough. Denied abdominal pain. Vitals/I&O/Wt Last Vital Signs Temp 98.1 F 04/24/24 15:47 Pulse 65 04/24/24 15:47 Resp 17 04/24/24 15:47 BP 154/74 04/24/24 15:47 Pulse Ox 94 04/24/24 15:47 O2 Del Method Room Air 04/24/24 15:47 04/24/24 04/24/24 04/24/24 06:59 14:59 22:59 Intake Total 520 / 520 600 / 600 120 / 720 Output Total 250 / 250 500 / 500 Balance 270 / 270 600 / 600 -380 / 220 Weight last 48 hrs Weight 81.284 kg Weight 77.111 kg Weight 77.111 kg Physical Exam 2 Narrative: - General: Elderly male, appears alert a wake - Cardiovascular: Regular rate and rhyth m, no murmurs, rubs, or gallops - Respiratory: Clear to auscultation yasemin aterally, no wheezes, rales, or rhonchi - Gastrointestinal: Soft, non-tender, no n-distended, bowel sounds present - Genitourinary: Suprapubic catheter in place, no erythema or discharge at insertion site - Musculoskeletal: Decreased strength in all extremities, left-sided weakness noted - Neurological: Alert and oriented, no f ocal deficits - Skin: Warm and dry, no rashes or lesio ns Data 04/24/24 04:03 04/24/24 04:03 Micro: Microbiology 04/23/24 16:42 Blood Culture - Preliminary Blood NEGATIVE TO DATE 04/23/24 16:38 Blood Culture - Preliminary Blood NEGATIVE TO DATE A&P Assessment and plan (1) Leukocytosis: (2) Generalized weakness: Plan Leukocytosis - Resolved - 83-year-old male with chronic indwelling trammell catheter and recent hospitalization for urinary tract infection presents with generalized weakness despite antibiotics . Urine cultures during the previous admission grew Pseudomonas, which should have been covered by the prescribed antibiotics. Now afebrile, no evidence of infection on chest xray. Blood culture x2 drawn. Plan: Patient was started empirically on meropenem which would cover for prior organisms noted in urine cultures. Most recently he was found to have Pseudomonas. Based on sensitivities he was treated with Levaquin however failed this treatment outpatient. I am not sure if he had actually taking his Levaquin.Will continue meropenem for now however if no further cultures, fevers or leukocytosis will transition to Levaquin to cover for recent Pseudomonas. Patients leukocytosis had not resolved. Also to note patient suprapubic catheter was changed prior to the recent discharge. Functional Decline - Progressive generalized weakness and inability to perform activities of daily living, likely multifactorial in the setting of acute illness and underlying comorbidities. Plan: - Physical therapy and occupational therapy are consulted. PDMP PDMP Reviewed: Not Reviewed Attestations 2 Medical Necessity Statement*: Were require further hospitalization to continue IV antibiotics for an additional day. Coding Level of Care Code Acute Code for Chg Fwd Diagnoses Leukocytosis D72.829 Generalized weakness R53.1
[2024-04-25] VITALS (9 sets, daily range): BP systolic 123–164; BP diastolic 70–94; PULSE 60–84; RESP 15–18; TEMP 36.3–37.1; O2SAT 93–96
[2024-04-25] MEDS: amlodipine 5 mg Tablet PO (03:21)
--- NOTE | 2024-04-25 03:23 | PC.NURSE ---
Patients B/P was 164/94 with a map of 117. Dr. Farmer was notified and wanted nurse to give patients 0600 Amlodipine 5mg now.
[2024-04-25 04:08] LABS: Basophils % 0.4 %; Eosinophils # 0.9 10^3/uL (0.0-0.8); Eosinophils % 16.6 %; Hematocrit 40.8 % (37-53); Lymphocytes # 1.1 10^3/uL (0.8-4.8); Lymphocytes % 20.2 %; Mean Corpuscular HGB Conc 34.1 g/dL (30-55); Mean Corpuscular Hemoglobin 32.6 pg (27-33); Mean Corpuscular Volume 95.6 fl (82-101); Mean Platelet Volume 11.2 fL (7.4-10.4); Monocytes # 0.7 10^3/uL (0.2-0.9); Monocytes % 13.2 %; Neutrophils # 2.58 10^3/uL (1.8-7.7); Neutrophils % 49.2 %; Nucleated Red Blood Cells % 0 %; Platelet Count 122 10^3/cmm (157-399); Red Blood Count 4.27 10^6/uL (3.85-5.65); Red Cell Distribution Width 12.7 % (12.1-15.1); White Blood Count 5.24 10^3/uL (3.29-11.43)
[2024-04-25 04:20] LABS: Anion Gap 16.6 (5-19); Blood Urea Nitrogen 34 mg/dL (8-23); Calcium 8.4 mg/dL (8.5-10.5); Carbon Dioxide 20 mmol/L (22-29); Chloride 108 mmol/L (98-107); Creatinine Clr Calc Pharmacy 44.6964; Glucose 101 mg/dL (65-115); Osmolality Calculated 300 mOsm/kg (285-295); Potassium 3.6 mmol/L (3.5-5.1); Sodium 141 mmol/L (136-145)
[2024-04-25] MEDS: levothyroxine 50 mcg Tablet PO (05:14)
[2024-04-25] MEDS: aspirin 81 mg Chew Tablet PO (05:14)
[2024-04-25] MEDS: carvedilol 25 mg Tablet 12.5 MG PO ×2 (08:01→17:02)
[2024-04-25] MEDS: pantoprazole DR 40 mg Tablet PO (08:01)
[2024-04-25] MEDS: finasteride 5 mg Tablet PO (08:01)
[2024-04-25] MEDS: meropenem 1,000 mg SDV 1000 MG IVP (08:06)
--- NOTE | 2024-04-25 10:11 | PC.CHAP ---
Pastoral Care Encounter/Spiritual Assessment Type of Contact [] Declined billet cutter visit [] Patient/Family/Request visit [] Outpatient visit [] Follow-up visit [] Physician referral [] Code/Alert [] Routine visit [] Staff referral [] Actively dying [X] Patient sleeping [] Family support [] [] Out of room [] Palliative care [] [X] Receiving care in room [] Pre-surgical visit [] Trauma [] Long length of stay [] ICU visit [] Other: Relational/Emotional Strength [] Patient feels connected with others/family/visitors/staff [] Distress [] Loneliness/isolation [] Abandonment Spirituality of Patient [] Person of Irene [] Attends Restoration of their Irene [] Believes in Prayer [] Reads Bible or Mosque materials [] There are Spiritual issues to be addressed Air Quality Chemist Interventions [] Prayer [] Active listening [] Non-anxious presence [] Spiritual/emotional support [] Crisis/trauma care [] Spiritual counseling [] Bereavement support [] Provided bereavement packet [] Provided Bible/devotional materials [] Provided toy/stuffed animal, coloring book to patient or family member [] Provided Communion [] Anointing/[place] [] Salvation [] Completed spiritual assessment [] Other: Impact on Illness or Injury [] Angry [] Fearful [] Anxious [] Often cries [] Exhaustion [] Unable to work [] Unable to attend denominational [] Unable to walk/stand [] Unable to read [] Unable to drive [] Unable to eat/drink [] Unable to sleep [] Unable to be with family [] Patient intubated [] Other: Summary Time spent with patient
--- NOTE | 2024-04-25 14:28 | P.PN_ITS ---
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 The patient describes progressive loss of strength and inability to perform activities of daily living, such as opening his ostomy bag this morning. He denies any fever, chills, nausea, vomiting, abdominal pain, diarrhea, or constipation. The patient's suprapubic catheter was exchanged on 04/20/2024. Initial evaluation in the ER revealed: - Laboratory Findings: WBC 16, hemoglobi n 14, hematocrit 41.6, platelet count 132, sodium 140, potassium 3.2, chloride 103, bicarbonate 21, anion gap 19, BUN 28, and creatinine 1.6 (baseline 1.3-1.5). Urinalysis did not show leukocyte esterase or nitrites. - Imaging Studies: Chest x-ray showed st able findings without acute abnormality. - Infectious Disease Testing: COVID-19, RSV, and Influenza A/B were negative. The patient was admitted for further evaluation and management of his generalized weakness and suspected incompletely treated urinary tract infection. 04/24 Patient noted significant improvement in generalized weakness. Though he had experienced improvement in symptoms still stated he was not able to return home just yet. Refused to consider snf facility until seen by Physical therapy. Has not had any fever or chills overnight. Denied any chest pain or shortness of breath. No productive cough. Denied abdominal pain 04/25 Patient stated that today again he was feeling weak and now considering snf for rehab. Yesterday he declined this. Has not had any fever or chills overnight. No nausea vomiting. Denied abdominal pain.. Medications: Reviewed: Yes Vitals/I&O/Wt Last Vital Signs Temp 98.0 F 04/25/24 11:56 Pulse 60 04/25/24 13:51 Resp 15 04/25/24 11:56 BP 129/77 04/25/24 11:56 Pulse Ox 95 04/25/24 11:56 O2 Del Method Room Air 04/25/24 11:56 04/24/24 04/25/24 04/25/24 22:59 06:59 14:59 Intake Total 120 / 720 240 / 240 Output Total 500 / 500 400 / 900 Balance -380 / 220 -400 / -180 240 / 240 Weight last 48 hrs Weight 79.56 kg Weight 81.284 kg Weight 77.111 kg Physical Exam 2 Narrative: - General: Elderly male, appears alert a wake - Cardiovascular: Regular rate and rhyth m, no murmurs, rubs, or gallops - Respiratory: Clear to auscultation yasemin aterally, no wheezes, rales, or rhonchi - Gastrointestinal: Soft, non-tender, no n-distended, bowel sounds present - Genitourinary: Suprapubic catheter in place, no erythema or discharge at insertion site - Musculoskeletal: Decreased strength in all extremities, left-sided weakness noted - Neurological: Alert and oriented, no f ocal deficits - Skin: Warm and dry, no rashes or lesio ns Data 04/25/24 03:28 04/25/24 03:28 Micro: Microbiology 04/23/24 16:42 Blood Culture - Preliminary Blood NEGATIVE TO DATE 04/23/24 16:38 Blood Culture - Preliminary Blood NEGATIVE TO DATE A&P Assessment and plan (1) Leukocytosis: (2) Generalized weakness: Plan Pseudomonal UTI in setting of CIF - 83-year-old male with chronic indwelling trammell catheter and recent hospitalization for urinary tract infection presents with generalized weakness despite antibiotics . Urine cultures during the previous admission grew Pseudomonas, which should have been covered by the prescribed antibiotics. Now afebrile, no evidence of infection on chest xray. Blood culture x2 drawn. Plan: 04/24 - Patient was started empirically on meropenem which would cover for prior organisms noted in urine cultures. Most recently he was found to have Pseudomonas. Based on sensitivities he was treated with Levaquin however failed this treatment outpatient. I am not sure if he had actually taking his Levaquin.Will continue meropenem for now however if no further cultures, fevers or leukocytosis will transition to Levaquin to cover for recent Pseudomonas. Patients leukocytosis had not resolved. Also to note patient suprapubic catheter was changed prior to the recent discharge. 04/25 - Will deescalate to change to levaquin 750 mg IV q48hr - Blood culture x 2 - NGTD - Leukocytosis resolved. - SPC was changed during prior hospitalization - Repeat basic labs in am Functional Decline - Progressive generalized weakness and inability to perform activities of daily living, likely multifactorial in the setting of acute illness and underlying comorbidities. Plan: - Physical therapy and occupational therapy are consulted. PDMP PDMP Reviewed: Not Reviewed Attestations 2 Medical Necessity Statement*: Were require further hospitalization to continue IV antibiotics for an additional day. Coding Level of Care Code Acute Code for Chg Fwd Diagnoses Leukocytosis D72.829 Generalized weakness R53.1
[2024-04-25] MEDS: heparin 5,000 unit/mL INJ 1 mL 5000 UNIT SUBCUT (17:02)
[2024-04-25] MEDS: tamsulosin 0.4 mg Capsule PO (17:02)
[2024-04-26] VITALS (9 sets, daily range): BP systolic 141–154; BP diastolic 76–91; PULSE 60–78; RESP 15–18; TEMP 36.4–36.7; O2SAT 96–98
[2024-04-26 03:48] LABS: Basophils % 0.5 %; Eosinophils % 17.5 %; Hematocrit 44.2 % (37-53); Lymphocytes # 1.4 10^3/uL (0.8-4.8); Lymphocytes % 25.1 %; Mean Corpuscular HGB Conc 33.3 g/dL (30-55); Mean Corpuscular Hemoglobin 32.5 pg (27-33); Mean Corpuscular Volume 97.6 fl (82-101); Mean Platelet Volume 10.7 fL (7.4-10.4); Monocytes # 0.5 10^3/uL (0.2-0.9); Monocytes % 8.5 %; Neutrophils # 2.71 10^3/uL (1.8-7.7); Neutrophils % 47.9 %; Nucleated Red Blood Cells % 0 %; Platelet Count 144 10^3/cmm (157-399); Red Blood Count 4.53 10^6/uL (3.85-5.65); Red Cell Distribution Width 12.4 % (12.1-15.1); White Blood Count 5.66 10^3/uL (3.29-11.43)
[2024-04-26 04:01] LABS: Blood Urea Nitrogen 34 mg/dL (8-23); Calcium 8.7 mg/dL (8.5-10.5); Carbon Dioxide 23 mmol/L (22-29); Chloride 110 mmol/L (98-107); Creatinine Clr Calc Pharmacy 44.3133; Glucose 89 mg/dL (65-115); Osmolality Calculated 305 mOsm/kg (285-295); Sodium 144 mmol/L (136-145)
[2024-04-26] MEDS: levothyroxine 50 mcg Tablet PO (05:04)
[2024-04-26] MEDS: heparin 5,000 unit/mL INJ 1 mL 5000 UNIT SUBCUT ×2 (05:04→17:04)
[2024-04-26] MEDS: aspirin 81 mg Chew Tablet PO (05:04)
[2024-04-26] MEDS: amlodipine 5 mg Tablet PO (05:04)
[2024-04-26] MEDS: ondansetron 2 mg/ML SDV 2 mL 4 MG IVP (08:42)
[2024-04-26] MEDS: pantoprazole DR 40 mg Tablet PO (08:42)
[2024-04-26] MEDS: finasteride 5 mg Tablet PO (08:42)
[2024-04-26] MEDS: carvedilol 25 mg Tablet 12.5 MG PO ×2 (08:42→17:03)
--- NOTE | 2024-04-26 16:31 | P.PN_ITS ---
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 The patient describes progressive loss of strength and inability to perform activities of daily living, such as opening his ostomy bag this morning. He denies any fever, chills, nausea, vomiting, abdominal pain, diarrhea, or constipation. The patient's suprapubic catheter was exchanged on 04/20/2024. Initial evaluation in the ER revealed: - Laboratory Findings: WBC 16, hemoglobi n 14, hematocrit 41.6, platelet count 132, sodium 140, potassium 3.2, chloride 103, bicarbonate 21, anion gap 19, BUN 28, and creatinine 1.6 (baseline 1.3-1.5). Urinalysis did not show leukocyte esterase or nitrites. - Imaging Studies: Chest x-ray showed st able findings without acute abnormality. - Infectious Disease Testing: COVID-19, RSV, and Influenza A/B were negative. The patient was admitted for further evaluation and management of his generalized weakness and suspected incompletely treated urinary tract infection. 04/24 Patient noted significant improvement in generalized weakness. Though he had experienced improvement in symptoms still stated he was not able to return home just yet. Refused to consider prison facility until seen by Physical therapy. Has not had any fever or chills overnight. Denied any chest pain or shortness of breath. No productive cough. Denied abdominal pain 04/25 Patient stated that today again he was feeling weak and now considering prison for rehab. Yesterday he declined this. Has not had any fever or chills overnight. No nausea vomiting. Denied abdominal pain 04/26 Unchanged no new issues overnight. [place] slightly nauseous this am. no emesis. Discussed SNF at [facility]. Waiting for SW in am to see Medications: Reviewed: Yes Vitals/I&O/Wt Last Vital Signs Temp 98.0 F 04/26/24 12:00 Pulse 65 04/26/24 14:00 Resp 15 04/26/24 12:00 BP 142/84 04/26/24 12:00 Pulse Ox 96 04/26/24 12:00 O2 Del Method Room Air 04/26/24 12:00 04/26/24 04/26/24 04/26/24 06:59 14:59 22:59 Intake Total 360 / 360 Output Total 600 / 1350 Balance -600 / -390 360 / 360 Weight last 48 hrs Weight 81.647 kg Weight 79.56 kg Physical Exam 2 Narrative: - General: Elderly male, appears alert a wake - Cardiovascular: Regular rate and rhyth m, no murmurs, rubs, or gallops - Respiratory: Clear to auscultation yasemin aterally, no wheezes, rales, or rhonchi - Gastrointestinal: Soft, non-tender, no n-distended, bowel sounds present - Genitourinary: Suprapubic catheter in place, no erythema or discharge at insertion site - Musculoskeletal: Decreased strength in all extremities, left-sided weakness noted - Neurological: Alert and oriented, no f ocal deficits - Skin: Warm and dry, no rashes or lesio ns Data 04/26/24 03:27 04/26/24 03:27 A&P Assessment and plan (1) Leukocytosis: (2) Generalized weakness: Plan Pseudomonal UTI in setting of CIF - 83-year-old male with chronic indwelling trammell catheter and recent hospitalization for urinary tract infection presents with generalized weakness despite antibiotics . Urine cultures during the previous admission grew Pseudomonas, which should have been covered by the prescribed antibiotics. Now afebrile, no evidence of infection on chest xray. Blood culture x2 drawn. Plan: 04/24 - Patient was started empirically on meropenem which would cover for prior organisms noted in urine cultures. Most recently he was found to have Pseudomonas. Based on sensitivities he was treated with Levaquin however failed this treatment outpatient. I am not sure if he had actually taking his Levaquin.Will continue meropenem for now however if no further cultures, fevers or leukocytosis will transition to Levaquin to cover for recent Pseudomonas. Patients leukocytosis had not resolved. Also to note patient suprapubic catheter was changed prior to the recent discharge. 04/25 - Will deescalate to change to levaquin 750 mg IV q48hr - Blood culture x 2 - NGTD - Leukocytosis resolved. - SPC was changed during prior hospitalization - Repeat basic labs in am 04/26 - Continue Levaquin as orderd for now - Repear CBC in am Functional Decline - Progressive generalized weakness and inability to perform activities of daily living, likely multifactorial in the setting of acute illness and underlying comorbidities. Plan: - Physical therapy and occupational therapy are consulted. - SW/CM consult in am for placement. PDMP PDMP Reviewed: Not Reviewed Attestations 2 Medical Necessity Statement*: Were require further hospitalization to continue IV antibiotics for an additional day. Coding Level of Care Code Acute Code for Chg Fwd Diagnoses Leukocytosis D72.829 Generalized weakness R53.1
[2024-04-26] MEDS: tamsulosin 0.4 mg Capsule PO (17:04)
[2024-04-27] VITALS (8 sets, daily range): BP systolic 122–158; BP diastolic 70–92; PULSE 60–68; RESP 14–18; TEMP 36.4–36.7; O2SAT 94–97
[2024-04-27 04:32] LABS: Basophils % 0.7 %; Eosinophils % 18.2 %; Hematocrit 39.6 % (37-53); Lymphocytes # 1.3 10^3/uL (0.8-4.8); Mean Corpuscular HGB Conc 33.8 g/dL (30-55); Mean Corpuscular Hemoglobin 32.6 pg (27-33); Mean Corpuscular Volume 96.4 fl (82-101); Mean Platelet Volume 11.5 fL (7.4-10.4); Monocytes # 0.4 10^3/uL (0.2-0.9); Monocytes % 7.7 %; Neutrophils # 2.68 10^3/uL (1.8-7.7); Neutrophils % 48.9 %; Nucleated Red Blood Cells % 0 %; Platelet Count 135 10^3/cmm (157-399); Red Blood Count 4.11 10^6/uL (3.85-5.65); Red Cell Distribution Width 12.6 % (12.1-15.1); White Blood Count 5.48 10^3/uL (3.29-11.43)
[2024-04-27 04:43] LABS: Blood Urea Nitrogen 31 mg/dL (8-23); Calcium 8.4 mg/dL (8.5-10.5); Carbon Dioxide 21 mmol/L (22-29); Chloride 108 mmol/L (98-107); Creatinine Clr Calc Pharmacy 48.0803; Glucose 86 mg/dL (65-115); Osmolality Calculated 300 mOsm/kg (285-295); Sodium 142 mmol/L (136-145)
[2024-04-27] MEDS: amlodipine 5 mg Tablet PO (05:19)
[2024-04-27] MEDS: aspirin 81 mg Chew Tablet PO (05:19)
[2024-04-27] MEDS: levothyroxine 50 mcg Tablet PO (05:19)
[2024-04-27] MEDS: heparin 5,000 unit/mL INJ 1 mL 5000 UNIT SUBCUT ×2 (05:20→17:01)
[2024-04-27] MEDS: carvedilol 25 mg Tablet 12.5 MG PO ×2 (08:01→17:01)
[2024-04-27] MEDS: pantoprazole DR 40 mg Tablet PO (08:01)
[2024-04-27] MEDS: levofloxacin-dextrose 5 % 750 MG/150 ML PREMIX 100 MG IV (08:01)
[2024-04-27] MEDS: finasteride 5 mg Tablet PO (08:01)
--- NOTE | 2024-04-27 11:42 | P.PN_ITS ---
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 The patient describes progressive loss of strength and inability to perform activities of daily living, such as opening his ostomy bag this morning. He denies any fever, chills, nausea, vomiting, abdominal pain, diarrhea, or constipation. The patient's suprapubic catheter was exchanged on 04/20/2024. Initial evaluation in the ER revealed: - Laboratory Findings: WBC 16, hemoglobi n 14, hematocrit 41.6, platelet count 132, sodium 140, potassium 3.2, chloride 103, bicarbonate 21, anion gap 19, BUN 28, and creatinine 1.6 (baseline 1.3-1.5). Urinalysis did not show leukocyte esterase or nitrites. - Imaging Studies: Chest x-ray showed st able findings without acute abnormality. - Infectious Disease Testing: COVID-19, RSV, and Influenza A/B were negative. The patient was admitted for further evaluation and management of his generalized weakness and suspected incompletely treated urinary tract infection. 04/24 Patient noted significant improvement in generalized weakness. Though he had experienced improvement in symptoms still stated he was not able to return home just yet. Refused to consider fci facility until seen by Physical therapy. Has not had any fever or chills overnight. Denied any chest pain or shortness of breath. No productive cough. Denied abdominal pain 04/25 Patient stated that today again he was feeling weak and now considering fci for rehab. Yesterday he declined this. Has not had any fever or chills overnight. No nausea vomiting. Denied abdominal pain 04/26 Unchanged no new issues overnight. [place] slightly nauseous this am. no emesis. Discussed SNF at [facility]. Waiting for SW in am to see Medications: Reviewed: Yes Vitals/I&O/Wt Last Vital Signs Temp 97.5 F L 04/27/24 11:25 Pulse 61 04/27/24 11:25 Resp 18 04/27/24 11:25 BP 142/78 04/27/24 11:25 Pulse Ox 97 04/27/24 11:25 O2 Del Method Room Air 04/27/24 11:25 04/26/24 04/27/24 04/27/24 22:59 06:59 14:59 Intake Total 240 / 600 510 / 510 Output Total 550 / 550 575 / 1125 Balance -310 / 50 -575 / -525 510 / 510 Weight last 48 hrs Weight 81.057 kg Weight 81.647 kg Physical Exam 2 Narrative: - General: Elderly male, appears alert a wake - Cardiovascular: Regular rate and rhyth m, no murmurs, rubs, or gallops - Respiratory: Clear to auscultation yasemin aterally, no wheezes, rales, or rhonchi - Gastrointestinal: Soft, non-tender, no n-distended, bowel sounds present - Genitourinary: Suprapubic catheter in place, no erythema or discharge at insertion site - Musculoskeletal: Decreased strength in all extremities, left-sided weakness noted - Neurological: Alert and oriented, no f ocal deficits - Skin: Warm and dry, no rashes or lesio ns Data 04/27/24 02:00 04/27/24 02:00 A&P Assessment and plan (1) Leukocytosis: (2) Generalized weakness: Plan Pseudomonal UTI in setting of CIF - 83-year-old male with chronic indwelling trammell catheter and recent hospitalization for urinary tract infection presents with generalized weakness despite antibiotics . Urine cultures during the previous admission grew Pseudomonas, which should have been covered by the prescribed antibiotics. Now afebrile, no evidence of infection on chest xray. Blood culture x2 drawn. Plan: 04/24 - Patient was started empirically on meropenem which would cover for prior organisms noted in urine cultures. Most recently he was found to have Pseudomonas. Based on sensitivities he was treated with Levaquin however failed this treatment outpatient. I am not sure if he had actually taking his Levaquin.Will continue meropenem for now however if no further cultures, fevers or leukocytosis will transition to Levaquin to cover for recent Pseudomonas. Patients leukocytosis had not resolved. Also to note patient suprapubic catheter was changed prior to the recent discharge. 04/25 - Will deescalate to change to levaquin 750 mg IV q48hr - Blood culture x 2 - NGTD - Leukocytosis resolved. - SPC was changed during prior hospitalization - Repeat basic labs in am 04/26 - Continue Levaquin - Repeat CBC in am 04/27 - No change to above management Functional Decline - Progressive generalized weakness and inability to perform activities of daily living, likely multifactorial in the setting of acute illness and underlying comorbidities. Plan: - Physical therapy and occupational therapy are consulted. - SW/CM consult in am for placement. 04/27 - Patient is medically stable for discharge once placement arranged. PDMP PDMP Reviewed: Not Reviewed Attestations 2 Medical Necessity Statement*: Were require further hospitalization to continue antibiotics and for placement arrangement for an additional day. Coding Level of Care Code Acute Code for Chg Fwd Diagnoses Leukocytosis D72.829 Generalized weakness R53.1
[2024-04-27] MEDS: tamsulosin 0.4 mg Capsule PO (17:01)
[2024-04-28] VITALS (8 sets, daily range): BP systolic 121–159; BP diastolic 69–93; PULSE 58–71; RESP 15–18; TEMP 36.4–36.9; O2SAT 95–96
[2024-04-28] MEDS: levothyroxine 50 mcg Tablet PO (05:09)
[2024-04-28] MEDS: amlodipine 5 mg Tablet PO (05:09)
[2024-04-28] MEDS: aspirin 81 mg Chew Tablet PO (05:09)
[2024-04-28] MEDS: heparin 5,000 unit/mL INJ 1 mL 5000 UNIT SUBCUT ×2 (05:10→17:03)
[2024-04-28 05:40] LABS: Basophils % 0.7 %; Eosinophils # 1.1 10^3/uL (0.0-0.8); Eosinophils % 17.3 %; Hematocrit 39.3 % (37-53); Lymphocytes # 1.2 10^3/uL (0.8-4.8); Lymphocytes % 19.7 %; Mean Corpuscular HGB Conc 34.1 g/dL (30-55); Mean Corpuscular Hemoglobin 33.3 pg (27-33); Mean Corpuscular Volume 97.8 fl (82-101); Mean Platelet Volume 10.7 fL (7.4-10.4); Monocytes # 0.6 10^3/uL (0.2-0.9); Monocytes % 9.3 %; Neutrophils # 3.15 10^3/uL (1.8-7.7); Neutrophils % 51.4 %; Nucleated Red Blood Cells % 0 %; Platelet Count 146 10^3/cmm (157-399); Red Blood Count 4.02 10^6/uL (3.85-5.65); Red Cell Distribution Width 12.4 % (12.1-15.1); White Blood Count 6.13 10^3/uL (3.29-11.43)
[2024-04-28 06:07] LABS: Blood Urea Nitrogen 29 mg/dL (8-23); Calcium 8.6 mg/dL (8.5-10.5); Carbon Dioxide 21 mmol/L (22-29); Chloride 109 mmol/L (98-107); Creatinine Clr Calc Pharmacy 44.6158; Glucose 87 mg/dL (65-115); Osmolality Calculated 299 mOsm/kg (285-295); Sodium 142 mmol/L (136-145)
[2024-04-28 06:28] LABS: Anion Gap 16.3 (5-19); Potassium 4.3 mmol/L (3.5-5.1)
[2024-04-28] MEDS: finasteride 5 mg Tablet PO (08:25)
[2024-04-28] MEDS: pantoprazole DR 40 mg Tablet PO (08:25)
[2024-04-28] MEDS: carvedilol 25 mg Tablet 12.5 MG PO ×2 (08:25→17:03)
[2024-04-28] MEDS: piperacillin-tazobactam 3.375 GM in sodium chloride 0.9% (plus) 50 ML IV ×2 (13:55→19:32)
--- NOTE | 2024-04-28 14:29 | P.PN_ITS ---
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 The patient describes progressive loss of strength and inability to perform activities of daily living, such as opening his ostomy bag this morning. He denies any fever, chills, nausea, vomiting, abdominal pain, diarrhea, or constipation. The patient's suprapubic catheter was exchanged on 04/20/2024. Initial evaluation in the ER revealed: - Laboratory Findings: WBC 16, hemoglobi n 14, hematocrit 41.6, platelet count 132, sodium 140, potassium 3.2, chloride 103, bicarbonate 21, anion gap 19, BUN 28, and creatinine 1.6 (baseline 1.3-1.5). Urinalysis did not show leukocyte esterase or nitrites. - Imaging Studies: Chest x-ray showed st able findings without acute abnormality. - Infectious Disease Testing: COVID-19, RSV, and Influenza A/B were negative. The patient was admitted for further evaluation and management of his generalized weakness and suspected incompletely treated urinary tract infection. 04/28: Hospital course, labs appreciated. Patient sitting comfortably in chair today. Granddaughter at bedside. States feeling a lot better. Denies any nausea, ting, headache. Worked well with physical therapy. Medications: Reviewed: Yes Vitals/I&O/Wt Last Vital Signs Temp 97.5 F L 04/28/24 11:50 Pulse 60 04/28/24 11:50 Resp 17 04/28/24 11:50 BP 151/93 04/28/24 11:50 Pulse Ox 96 04/28/24 11:50 O2 Del Method Room Air 04/28/24 11:50 04/27/24 04/28/24 04/28/24 22:59 06:59 14:59 Intake Total 840 / 1830 120 / 1950 360 / 360 Output Total 1000 / 1000 400 / 1400 600 / 600 Balance -160 / 830 -280 / 550 -240 / -240 Weight last 48 hrs Weight 80.921 kg Weight 81.057 kg Physical Exam 2 Narrative: - General: Elderly male, appears alert a wake - Cardiovascular: Regular rate and rhyth m, no murmurs, rubs, or gallops - Respiratory: Clear to auscultation yasemin aterally, no wheezes, rales, or rhonchi - Gastrointestinal: Soft, non-tender, no n-distended, bowel sounds present - Musculoskeletal: Decreased strength in all extremities, left-sided weakness noted - Neurological: Alert and oriented, no f ocal deficits - Skin: Warm and dry, no rashes or lesio ns Data 04/28/24 04:50 04/28/24 04:50 A&P Assessment and plan (1) Leukocytosis: (2) Generalized weakness: Most likely in setting of recurrent UTI. Patient has chronic indwelling Cutler for more than 6 months. Replaced recently within the last 2 weeks. 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 Improving currently. Working well with physical therapy. (3) Catheter-associated urinary tract infection: Qualifiers: Encounter type: initial encounter Indwelling urinary catheter type: u nspecified Qualified Code(s): T83.511A - Infection and inflammatory reaction due to indwelling urethral catheter, initial encounter; N39.0 - Urinary tract infection, site not specified (4) Pseudomonas urinary tract infection: (5) VRE (vancomycin-resistant Enterococci): (6) Hypertension: Qualifiers: Hypertension type: primary hypertension Qualified Code(s): I10 - Essential (primary) hypertension (7) Status post transcatheter aortic valve replacement (TAVR) using bioprosthesis: (8) Systolic congestive heart failure: Qualifiers: Heart failure chronicity: chronic Qualified Code(s): I50.22 - Chronic systolic (congestive) heart failure Plan Pseudomonal UTI in setting of CIF Appreciate chronic cultures. Urine culture recently grew Enterococcus VRE and Pseudomonas. Urine culture on current admission growing Pseudomonas. Appreciate sensitivities. For now switch to IV Zosyn which would cover both for Pseudomonas and Enterococcus in the past. Given patient with chronic indwelling Cutler catheter patient would most likely need about 10-day course of IV antibiotics. Midline placement for outpatient antibiotic treatment. Chronic indwelling Cutler catheter: Patient would need to follow-up with urologist as an outpatient for further management. Given complicated urinary infection would benefit from removal of Cutler catheter at the earliest. As per family member is following up with urologist at [facility] and is due for some kind of surgical procedure at the earliest. Continue with home dose of Flomax and finasteride. Functional Decline - Progressive generalized weakness and inability to perform activities of daily living, likely multifactorial in the setting of acute illness and underlying comorbidities. Plan: - Physical therapy and occupational therapy. - SW/CM consult in am for placement. History of congestive heart failure: Currently euvolemic. Continue with Coreg. Monitor for fluid overload. Hypertension: Goal blood pressure less than 140/90 mmHg. Continue with home dose of amlodipine and Coreg for now. Depending on blood pressures will uptitrate amlodipine accordingly. Heart rate well-controlled currently. Patient does have 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. Elevated D-dimer: Checked on 04/18. Found to be more than 13. Patient is on room air. Will check lower limb Dopplers for now. Low concerns for PE for now. DNR/DNI Regular diet Heparin for DVT prophylaxis Protonix OPD prophylaxis PDMP PDMP Reviewed: Not Reviewed Attestations 2 Medical Necessity Statement*: Requires further hospitalization for management of generalized weakness in setting of complicated UTI with Pseudomonas while outpatient IV antibiotics set up. Diagnoses Leukocytosis D72.829 Generalized weakness R53.1 Catheter-associated urinary tract infection T83.511A; N39.0 Encounter type: initial encounter Indwelling urinary catheter type: unspecified Pseudomonas urinary tract infection N39.0; B96.5 VRE (vancomycin-resistant Enterococci) A49.1; Z16.21 Primary hypertension I10 Hypertension type: primary hypertension Status post transcatheter aortic valve replacement (TAVR) using bioprosthesis Z95.3 Chronic systolic congestive heart failure I50.22 Heart failure chronicity: chronic
--- NOTE | 2024-04-28 16:10 | PICC.NOTE ---
Midline placed to right brachial vein. Referred to vascular access nurse for Midline placement due to need for IV antibiotics x 2 weeks. Risks and benefits discussed and informed consent obtained from pt. Right arm assessed with right brachial vein measuring 3.2 mm, straight, and apparent best choice for placement. Using sterile technique and MST, right brachial vein accessed x 1 stick. Mid-arm circumference measured 10 cm from right AC 30 cm. Trimmed cath 10 cm with 0 cm external length noted. Line secured with stat-lock. Insertion site covered with Biopatch and TSM. Report given to bedside nurse, PADDY Santana.
[2024-04-28] MEDS: ondansetron 2 mg/ML SDV 2 mL 4 MG IVP (17:03)
[2024-04-28] MEDS: tamsulosin 0.4 mg Capsule PO (17:04)
[2024-04-28 20:47] LABS: Glucose Point of Care 147 mg/dL (70-110)
[2024-04-29] VITALS (9 sets, daily range): BP systolic 103–125; BP diastolic 64–77; PULSE 58–114; RESP 16–17; TEMP 36.6–37.4; O2SAT 91–97; BMI 22.9
[2024-04-29] MEDS: piperacillin-tazobactam 3.375 GM in sodium chloride 0.9% (plus) 50 ML IV ×3 (03:40→21:24)
[2024-04-29] MEDS: aspirin 81 mg Chew Tablet PO (05:34)
[2024-04-29] MEDS: amlodipine 5 mg Tablet PO (05:34)
[2024-04-29] MEDS: levothyroxine 50 mcg Tablet PO (05:34)
[2024-04-29] MEDS: heparin 5,000 unit/mL INJ 1 mL 5000 UNIT SUBCUT (05:34)
[2024-04-29 06:12] LABS: Basophils % 0.5 %; Eosinophils # 1.1 10^3/uL (0.0-0.8); Hematocrit 40.7 % (37-53); Lymphocytes # 0.6 10^3/uL (0.8-4.8); Lymphocytes % 7.9 %; Mean Corpuscular HGB Conc 32.9 g/dL (30-55); Mean Corpuscular Hemoglobin 32.5 pg (27-33); Mean Corpuscular Volume 98.8 fl (82-101); Monocytes # 0.4 10^3/uL (0.2-0.9); Monocytes % 4.7 %; Neutrophils # 5.54 10^3/uL (1.8-7.7); Neutrophils % 71.6 %; Nucleated Red Blood Cells % 0 %; Platelet Count 113 10^3/cmm (157-399); Red Blood Count 4.12 10^6/uL (3.85-5.65); Red Cell Distribution Width 12.8 % (12.1-15.1); White Blood Count 7.73 10^3/uL (3.29-11.43)
[2024-04-29 06:42] LABS: Slide Review Slide Review Perform
[2024-04-29 07:47] LABS: Alanine Aminotransferase 86 U/L (0-41); Albumin Level 3.1 g/dL (3.5-5.2); Alkaline Phosphatase 64 U/L (40-130); Blood Urea Nitrogen 26 mg/dL (8-23); Calcium 8.3 mg/dL (8.5-10.5); Carbon Dioxide 21 mmol/L (22-29); Chloride 107 mmol/L (98-107); Creatinine Clr Calc Pharmacy 47.5971; Globulin 2.6 g/dL (1.3-4.6); Glucose 92 mg/dL (65-115); Osmolality Calculated 294 mOsm/kg (285-295); Sodium 140 mmol/L (136-145); Total Bilirubin 0.6 mg/dL (0.15-1.2); Total Protein 5.7 g/dL (6.6-8.7)
[2024-04-29 08:04] LABS: Anion Gap 16.4 (5-19); Potassium 4.4 mmol/L (3.5-5.1)
[2024-04-29 08:05] LABS: Aspartate Amino Transferase 76 U/L (0-40)
[2024-04-29] MEDS: pantoprazole DR 40 mg Tablet PO (09:37)
[2024-04-29] MEDS: finasteride 5 mg Tablet PO (09:37)
[2024-04-29] MEDS: carvedilol 25 mg Tablet 12.5 MG PO ×2 (09:38→17:48)
--- NOTE | 2024-04-29 10:34 | ECG_ITS ---
[facility] Date: 2024-04-29 Pat Name: Eliza Grimm Department: Room: 250 Gender: Male Rod Piler: : 1940 Requested By: Milton De Los Santos Order Number: [id number] Laurie MD: Russell Herzog M.D. Measurements Intervals [place] Rate: 67 P: 20 IA: 114 QRS: -54 QRSD: 144 T: 170 QT: 457 QTc: 483 Interpretive Statements ELECTRONIC VENTRICULAR PACEMAKER Compared to ECG 04/23/2024 12:00:05 No significant changes Electronically Signed On 04-30-2024 17:52:28 CRYSTAL FINISHER by Russell Herzog M.D. [email or web address]
[2024-04-29 10:57] LABS: Troponin(5th) Baseline 53 ng/L (0-15)
--- NOTE | 2024-04-29 11:57 | ECG_ITS ---
[facility] Date: 2024-04-29 Pat Name: Eliaz Grimm Department: Room: 250 Gender: Male Tree Driller: : 1940 Requested By: Milton De Los Santos Order Number: [id number] Reading MD: CIRO GARRIDO Measurements Intervals [place] Rate: 60 P: 212 UT: 171 QRS: 259 QRSD: 154 T: -74 QT: 464 QTc: 466 Interpretive Statements ELECTRONIC ATRIAL PACEMAKER ELECTRONIC VENTRICULAR PACEMAKER ABNORMAL RHYTHM ECG INTERPRETATION BASED ON A DEFAULT AGE OF 40 YEARS Compared to ECG 04/29/2024 10:34:19 No significant changes Electronically Signed On 05-05-2024 23:55:27 RAILROAD CAR PAINTER by CIRO GARRIDO [id number]
[2024-04-29] MEDS: pantoprazole 40 mg SDV IVP ×2 (12:22→21:23)
[2024-04-29] MEDS: enoxaparin 80 mg/0.8 mL Syringe SUBCUT (12:22)
[2024-04-29 13:31] LABS: Troponin 5 2HR 50.88 ng/L (0-15)
--- NOTE | 2024-04-29 13:32 | P.PN_ITS ---
Subjective 2 Subjective: Overnight patient had episode of vomiting. Today morning on examination patient complaining of chest pain along with nausea and mild dizziness. Denies headache. Otherwise has remained hemodynamically stable and afebrile. Medications: Reviewed: Yes Vitals/I&O/Wt Last Vital Signs Temp 98.5 F 04/29/24 11:39 Pulse 58 L 04/29/24 11:39 Resp 16 04/29/24 11:39 BP 104/65 04/29/24 11:39 Pulse Ox 91 04/29/24 11:39 O2 Del Method Room Air 04/29/24 11:39 04/28/24 04/29/24 04/29/24 22:59 06:59 14:59 Intake Total 170 / 530 170 / 700 410 / 410 Output Total 300 / 900 300 / 1200 400 / 400 Balance -130 / -370 -130 / -500 10 / 10 Weight last 48 hrs Weight 79.038 kg Weight 80.921 kg Physical Exam 2 Narrative: - General: Elderly male, appears alert a wake - Cardiovascular: Regular rate and rhyth m, no murmurs, rubs, or gallops - Respiratory: Clear to auscultation yasemin aterally, no wheezes, rales, or rhonchi - Gastrointestinal: Soft, non-tender, no n-distended, bowel sounds present - Musculoskeletal: Decreased strength in all extremities, left-sided weakness noted - Neurological: Alert and oriented, no f ocal deficits - Skin: Warm and dry, no rashes or lesio ns Data 04/29/24 04:10 04/29/24 07:20 Micro: Microbiology 04/23/24 16:42 Blood Culture - Final Blood NO GROWTH AFTER 5 DAYS 04/23/24 16:38 Blood Culture - Final Blood NO GROWTH AFTER 5 DAYS A&P Assessment and plan (1) Leukocytosis: (2) Generalized weakness: Most likely in setting of recurrent UTI. Patient has chronic indwelling Cutler for more than 6 months. Replaced recently within the last 2 weeks. 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 Improving currently. Working well with physical therapy. (3) Catheter-associated urinary tract infection: Qualifiers: Encounter type: initial encounter Indwelling urinary catheter type: u nspecified Qualified Code(s): T83.511A - Infection and inflammatory reaction due to indwelling urethral catheter, initial encounter; N39.0 - Urinary tract infection, site not specified (4) Pseudomonas urinary tract infection: (5) VRE (vancomycin-resistant Enterococci): (6) Hypertension: Qualifiers: Hypertension type: primary hypertension Qualified Code(s): I10 - Essential (primary) hypertension (7) Status post transcatheter aortic valve replacement (TAVR) using bioprosthesis: (8) Systolic congestive heart failure: Qualifiers: Heart failure chronicity: chronic Qualified Code(s): I50.22 - Chronic systolic (congestive) heart failure Plan Pseudomonal UTI in setting of CIF Appreciate chronic cultures. Urine culture recently grew Enterococcus VRE and Pseudomonas. Urine culture on current admission growing Pseudomonas. Appreciate sensitivities. For now switch to IV Zosyn which would cover both for Pseudomonas and Enterococcus in the past. Given patient with chronic indwelling Cutler catheter patient would most likely need about 10-day course of IV antibiotics. Midline placement for outpatient antibiotic treatment. Chronic indwelling Cutler catheter: Patient would need to follow-up with urologist as an outpatient for further management. Given complicated urinary infection would benefit from removal of Cutler catheter at the earliest. As per family member is following up with urologist at [place] and is due for some kind of surgical procedure at the earliest. Continue with home dose of Flomax and finasteride. Functional Decline - Progressive generalized weakness and inability to perform activities of daily living, likely multifactorial in the setting of acute illness and underlying comorbidities. Plan: - Physical therapy and occupational therapy. - SW/CM consult in am for placement. History of congestive heart failure: Currently euvolemic. Continue with Coreg. Monitor for fluid overload. Hypertension: Goal blood pressure less than 140/90 mmHg. Continue with home dose of amlodipine and Coreg for now. Depending on blood pressures will uptitrate amlodipine accordingly. Heart rate well-controlled currently. Patient does have 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. Elevated D-dimer: Checked on 04/18. Found to be more than 13. Patient is on room air. Will check lower limb Dopplers for now. Low concerns for PE for now. Plan for the day: Patient complaining of chest pain. Has history of CABG and TAVR. Check troponin cycled. Start on full dose Lovenox 1 mg/kg body weight daily for now. If troponin cycled positive will consult cardiology and get echocardiogram. Continue with IV antibiotics for now. Lower limb Dopplers awaited. Goal blood pressure less than 140/90 MAG with mean over 65. Monitor blood pressures. Continue with current antihypertensive including Coreg and amlodipine for now. DNR/DNI Regular diet Heparin for DVT prophylaxis Protonix OPD prophylaxis PDMP PDMP Reviewed: Not Reviewed Attestations 2 Medical Necessity Statement*: Requires further hospitalization for management of Pseudomonas complicated UTI in setting of chronic Cutler, chest pain while CAD is ruled out in a patient who is post CABG, TAVR. Diagnoses Leukocytosis D72.829 Generalized weakness R53.1 Catheter-associated urinary tract infection T83.511A; N39.0 Encounter type: initial encounter Indwelling urinary catheter type: unspecified Pseudomonas urinary tract infection N39.0; B96.5 VRE (vancomycin-resistant Enterococci) A49.1; Z16.21 Primary hypertension I10 Hypertension type: primary hypertension Status post transcatheter aortic valve replacement (TAVR) using bioprosthesis Z95.3 Chronic systolic congestive heart failure I50.22 Heart failure chronicity: chronic
[2024-04-29 13:33] LABS: Troponin 5 2HR Delta -2.12 ABS# (0-10)
--- NOTE | 2024-04-29 13:43 | USCV_ITS ---
Eliza Grimm Age: 83 Gender: M : 1940 Exam Date: 04/29/2024 14:29 Ordering Phys: Milton De Los Santos MD Technologist: Exam Location: [facility] [place] Indication: high dimer PROCEDURES: The venous duplex Doppler examination of both lower extremities was performed in the standard fashion. The following venous structures were evaluated: common femoral vein, profunda vein, proximal portion of the greater saphenous vein, superficial femoral vein, and the popliteal vein. FINDINGS: Normal 2-D Doppler and augmentation and compressibility throughout the lower extremity venous structures. Additional imaging through the proximal calf veins also reveals no thrombus. Limited evaluation of the greater saphenous vein is patent with no thrombus. CONCLUSIONS No evidence of right lower extremity DVT. No evidence of left lower extremity DVT. Rg Araya MD (Electronically Signed) Final Date: 29 April 2024 15:12 S
--- NOTE | 2024-04-29 16:42 | ECG_ITS ---
[facility] Date: 2024-04-29 Pat Name: Eliza Grimm Department: Room: 250 Gender: Male Travel Professional: : 1940 Requested By: Milton De Los Santos Order Number: [id number] Reading MD: CIRO GARRIDO Measurements Intervals [place] Rate: 66 P: 231 NE: 125 QRS: 190 QRSD: 169 T: -18 QT: 446 QTc: 469 Interpretive Statements ELECTRONIC VENTRICULAR PACEMAKER ABNORMAL RHYTHM ECG Compared to ECG 04/29/2024 11:57:10 Atrial-paced complex(es) or rhythm no longer present Electronically Signed On 05-05-2024 23:55:25 PROGRESS CLERK by CIRO GARRIDO [email or web address]
[2024-04-29 17:04] LABS: Troponin 5 6HR 50.81 ng/L (0-15)
[2024-04-29 17:06] LABS: Troponin 5 6HR Delta -2.19 ng/L (0-12)
[2024-04-29] MEDS: tamsulosin 0.4 mg Capsule PO (17:48)
[2024-04-30 04:00] VITALS: BP 106/49; PULSE 71; RESP 16; TEMP 36.8; O2SAT 95
[2024-04-30 05:28] LABS: Basophils % 0.5 %; Eosinophils # 1.2 10^3/uL (0.0-0.8); Eosinophils % 18.7 %; Lymphocytes # 0.8 10^3/uL (0.8-4.8); Lymphocytes % 13.2 %; Mean Corpuscular HGB Conc 33.3 g/dL (30-55); Mean Corpuscular Hemoglobin 32.1 pg (27-33); Mean Corpuscular Volume 96.3 fl (82-101); Mean Platelet Volume 11.8 fL (7.4-10.4); Monocytes # 0.4 10^3/uL (0.2-0.9); Neutrophils # 3.78 10^3/uL (1.8-7.7); Neutrophils % 59.9 %; Nucleated Red Blood Cells % 0 %; Platelet Count 121 10^3/cmm (157-399); Red Blood Count 4.05 10^6/uL (3.85-5.65); Red Cell Distribution Width 12.6 % (12.1-15.1); White Blood Count 6.31 10^3/uL (3.29-11.43)
[2024-04-30] MEDS: amlodipine 5 mg Tablet PO (05:37)
[2024-04-30] MEDS: piperacillin-tazobactam 3.375 GM in sodium chloride 0.9% (plus) 50 ML IV ×2 (05:37→12:44)
[2024-04-30] MEDS: aspirin 81 mg Chew Tablet PO (05:38)
[2024-04-30] MEDS: levothyroxine 50 mcg Tablet PO (05:38)
[2024-04-30 05:47] LABS: Alanine Aminotransferase 87 U/L (0-41); Albumin Level 3.1 g/dL (3.5-5.2); Alkaline Phosphatase 62 U/L (40-130); Anion Gap 16.1 (5-19); Aspartate Amino Transferase 63 U/L (0-40); Blood Urea Nitrogen 24 mg/dL (8-23); Calcium 8.4 mg/dL (8.5-10.5); Carbon Dioxide 22 mmol/L (22-29); Chloride 108 mmol/L (98-107); Creatinine Clr Calc Pharmacy 41.2652; Globulin 2.7 g/dL (1.3-4.6); Glucose 86 mg/dL (65-115); Osmolality Calculated 297 mOsm/kg (285-295); Potassium 4.1 mmol/L (3.5-5.1); Sodium 142 mmol/L (136-145); Total Bilirubin 0.5 mg/dL (0.15-1.2); Total Protein 5.8 g/dL (6.6-8.7)
[2024-04-30 05:54] LABS: Slide Review Slide Review Perform
[2024-04-30 06:05] VITALS: PULSE 69
[2024-04-30 08:02] VITALS: BP 150/90; PULSE 67; RESP 18; TEMP 36.9; O2SAT 95
--- NOTE | 2024-04-30 09:28 | P.DS_ITS ---
Discharge Providers Date of Admission: 04/28/24 14:39 Date of Discharge: April 30, 2024 Attending Provider at Admission: Harleen Le Attending Provider at Discharge: Milton De Los Santos MD Primary Care Provider: Aicha Moran MD Diagnoses at Discharge Discharge Diagnosis (1) Leukocytosis: Status: Acute (2) Generalized weakness: Status: Acute (3) Catheter-associated urinary tract infection: Status: Acute Qualifiers: Encounter type: initial encounter Indwelling urinary catheter type: unspecified Qualified Code(s): T83.511A - Infection and inflammatory reaction due to indwelling urethral catheter, initial encounter; N39.0 - Urinary tract infection, site not specified (4) Pseudomonas urinary tract infection: Status: Acute (5) VRE (vancomycin-resistant Enterococci): Status: Acute (6) Hypertension: Status: Acute Qualifiers: Hypertension type: primary hypertension Qualified Code(s): I10 - Essential (primary) hypertension (7) Status post transcatheter aortic valve replacement (TAVR) using bioprosthesis: Status: Acute Permanent problem details: aortic stenosis (8) Systolic congestive heart failure: Status: Acute Qualifiers: Heart failure chronicity: chronic Qualified Code(s): I50.22 - Chronic systolic (congestive) heart failure Reason for Visit Reason for Visit: pneumonia, weakness Brief History: History as per HPI: 83-year-old male with a past medical his tory of heart failure with ejection fraction 40-45%, 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 The patient describes progressive loss of strength and inability to perform activities of daily living, such as opening his ostomy bag this morning. He denies any fever, chills, nausea, vomiting, abdominal pain, diarrhea, or constipation. The patient's suprapubic catheter was exchanged on 04/20/2024. Initial evaluation in the ER revealed: - Laboratory Findings: WBC 16, hemoglobi n 14, hematocrit 41.6, platelet count 132, sodium 140, potassium 3.2, chloride 103, bicarbonate 21, anion gap 19, BUN 28, and creatinine 1.6 (baseline 1.3-1.5). Urinalysis did not show leukocyte esterase or nitrites. - Imaging Studies: Chest x-ray showed st able findings without acute abnormality. - Infectious Disease Testing: COVID-19, RSV, and Influenza A/B were negative. The patient was admitted for further evaluation and management of his generalized weakness and suspected incompletely treated urinary tract infection. Hospital Course Hospital Course Patient was admitted to the hospital further evaluation and management of sepsis in setting of complicated UTI. On review it seems patient has had multiple admissions in last 1 month, recurrent ER visits in last 4 months given concerns for cystitis. Culture history from past revealed that patient has had a UTI for the Pseudomonas and resistant Enterococcus. During hospital his hospitalization his blood culture remain negative and urine culture is positive for Pseudomonas. With IV hydration and IV antibiotics patient improved and started working well with physical therapy and has been back to his baseline physical activity for last 24 to 48 hours. Given recurrent admissions, recurrent visits to the ER, chronic Cutler in place which was last changed on 04/20 decision was made to complete IV antibiotic course given Pseudomonas and resistant bacterial UTI infections for completion of treatment rather than switching over to oral antibiotic which seem to have failed in the past. Patient will follow-up with urologist as an outpatient for further evaluation and management of possible prostatectomy for which he has been scheduled for early May as per the family members. Safe discharge plan were discussed in detail with the patient and his family members and transition to SNF was done to complete IV antibiotic course. Physical Exam Narrative: - General: Elderly male, appears alert a wake - Cardiovascular: Regular rate and rhyth m, no murmurs, rubs, or gallops - Respiratory: Clear to auscultation yasemin aterally, no wheezes, rales, or rhonchi - Gastrointestinal: Soft, non-tender, no n-distended, bowel sounds present - Musculoskeletal: Decreased strength in all extremities, left-sided weakness noted - Neurological: Alert and oriented, no f ocal deficits - Skin: Warm and dry, no rashes or lesio ns Discharge Data Studies Completed and Pending Completed Studies During Hospitalization Category Date Time Status XR chest 1V portable [id number] Stat Exams 04/23/24 11:50 [place] [id number] Routine Ultrasound 04/29/24 13:43 Completed Radiology Impressions Chest X-Ray 04/23/24 11:50 IMPRESSION: Stable chest without acute abnormality. Microbiology 04/23/24 16:42 Blood Blood Culture - Final NO GROWTH AFTER 5 DAYS 04/23/24 16:38 Blood Blood Culture - Final NO GROWTH AFTER 5 DAYS Laboratory Results WBC 6.31 10^3/uL (3.29-11.43) 04/30/24 04:28 RBC 4.05 10^6/uL (3.85-5.65) 04/30/24 04:28 Hgb 13.00 g/dL (11.27-16.99) 04/30/24 04:28 Hct 39.0 % (37-53) 04/30/24 04:28 MCV 96.3 fl (82-101) 04/30/24 04:28 MCH 32.1 pg (27-33) 04/30/24 04:28 MCHC 33.3 g/dL (30-55) 04/30/24 04:28 RDW 12.6 % (12.1-15.1) 04/30/24 04:28 Plt Count 121 10^3/cmm (157-399) L 04/30/24 04:28 MPV 11.8 fL (7.4-10.4) H 04/30/24 04:28 Neut % (Auto) 59.9 % 04/30/24 04:28 Lymph % (Auto) 13.2 % 04/30/24 04:28 [place] % (Auto) 6.0 % 04/30/24 04:28 Eos % (Auto) 18.7 % 04/30/24 04:28 Baso % (Auto) 0.5 % 04/30/24 04:28 Neut # (Auto) 3.78 10^3/uL (1.8-7.7) 04/30/24 04:28 Lymph # (Auto) 0.8 10^3/uL (0.8-4.8) 04/30/24 04:28 [place] # (Auto) 0.4 10^3/uL (0.2-0.9) 04/30/24 04:28 Eos # (Auto) 1.2 10^3/uL (0.0-0.8) H 04/30/24 04:28 Baso # (Auto) 0.0 10^3/uL (0.0-0.1) 04/30/24 04:28 Nucleated RBC % (auto) 0 % 04/30/24 04:28 Nucleated RBCs # 0.0 /100WBC 04/30/24 04:28 Sodium 142 mmol/L (136-145) 04/30/24 04:28 Potassium 4.1 mmol/L (3.5-5.1) 04/30/24 04:28 Chloride 108 mmol/L (98-107) H 04/30/24 04:28 Carbon Dioxide 22 mmol/L (22-29) 04/30/24 04:28 Anion Gap 16.1 (5-19) 04/30/24 04:28 BUN 24 mg/dL (8-23) H 04/30/24 04:28 Creatinine 1.5 mg/dL (0.7-1.2) H 04/30/24 04:28 GFR Calculation Not Reportable 04/30/24 04:28 Glucose 86 mg/dL (65-115) 04/30/24 04:28 POC Glucose 147 mg/dL (70-110) H 04/28/24 20:33 Calculated Osmolality 297 mOsm/kg (285-295) H 04/30/24 04:28 Lactic Acid 2.2 mmol/L (0.5-2.2) 04/23/24 15:12 Lactic Acid (Sepsis) 1.4 mmol/L (0.5-2.2) 04/23/24 19:18 Calcium 8.4 mg/dL (8.5-10.5) L 04/30/24 04:28 Total Bilirubin 0.5 mg/dL (0.15-1.2) 04/30/24 04:28 AST 63 U/L (0-40) H 04/30/24 04:28 ALT 87 U/L (0-41) H 04/30/24 04:28 Alkaline Phosphatase 62 U/L (40-130) 04/30/24 04:28 Troponin T Baseline 53 ng/L (0-15) H 04/29/24 10:35 Troponin T 120 Minute 50.88 ng/L (0-15) H 04/29/24 12:48 Delta Troponin T -2.12 ABS# (0-10) L 04/29/24 12:48 Troponin T Hi Sens 6Hr 50.81 ng/L (0-15) H 04/29/24 16:22 Troponin T Hi Sens 6Hr Delta -2.19 ng/L (0-12) L 04/29/24 16:22 Total Protein 5.8 g/dL (6.6-8.7) L 04/30/24 04:28 Albumin 3.1 g/dL (3.5-5.2) L 04/30/24 04:28 Globulin 2.7 g/dL (1.3-4.6) 04/30/24 04:28 Urine Color Yellow (Yellow) 04/23/24 14:00 Urine Appearance Slightly cloudy (CLEAR) 04/23/24 14:00 Urine pH 5 (5-7) 04/23/24 14:00 Ur Specific [place] 1.030 (1.005-1.030) 04/23/24 14:00 Urine Protein 3+ (Negative) A 04/23/24 14:00 Urine Glucose (UA) Norm (Normal) 04/23/24 14:00 Urine Ketones Negative (Negative) 04/23/24 14:00 Urine Blood 3+ (Negative) A 04/23/24 14:00 Urine Nitrate Negative (Negative) 04/23/24 14:00 Urine Bilirubin Neg (Negative) 04/23/24 14:00 Urine Urobilinogen Norm mg/dL (Negative) 04/23/24 14:00 Ur Leukocyte Esterase Negative (Negative) 04/23/24 14:00 Urine RBC 6-10 /hpf (0-2) 04/23/24 14:00 Urine WBC 0-5 /hpf (0-5) 04/23/24 14:00 Ur Squamous Epith Cells 0-5 /hpf (0-5) 04/23/24 14:00 Amorphous Sediment Not Reportable 04/23/24 14:00 Urine Bacteria None seen /hpf (NONE) 04/23/24 14:00 Hyaline Casts 18.61 /lpf 04/23/24 14:00 Coronavirus (PCR) Negative (Negative) 04/23/24 11:56 Influenza A (PCR) Negative (Negative) 04/23/24 11:56 Influenza Type B (PCR) Negative (Negative) 04/23/24 11:56 RSV (PCR) Negative (Negative) 04/23/24 11:56 Vitals Last Vital Signs Temp 98.4 F 04/30/24 08:02 Pulse 67 04/30/24 08:02 Resp 18 04/30/24 08:02 BP 150/90 04/30/24 08:02 Pulse Ox 95 04/30/24 08:02 O2 Del Method Room Air 04/29/24 23:47 Discharge Plan Discharge Patient Disposition: Xfer SNF Condition: Stable Prescriptions: New pantoprazole [Protonix] 40 mg tablet,delayed release (DR/EC) 40 mg PO QAM Qty: 60 0RF Rx Instructions: Twice daily for next 2 weeks followed by once daily Continued Synthroid 50 mcg tablet 50 mcg PO QAM Qty: 90 3RF furosemide 20 mg tablet 20 mg PO .MON/WED/FRI/SUN Qty: 90 3RF amlodipine 5 mg tablet 5 mg PO QAM Qty: 90 3RF aspirin 81 mg Tablet,Chewable 81 mg PO QAM Qty: 90 3RF isosorbide mononitrate 30 mg tablet extended release 24 hr 15 mg PO DAILY Qty: 90 3RF finasteride 5 mg tablet 5 mg PO DAILY Men's Daily Formula 400-20-300 mcg Tablet 1 tab PO QAM tamsulosin 0.4 mg capsule 0.4 mg PO QPM carvedilol 25 mg Tablet 12.5 mg PO BID 14 Days Qty: 28 0RF Discontinued levofloxacin 750 mg tablet 750 mg PO .q48 5 Days Qty: 3 0RF Discharge Orders: Discharge Order (Routine); Ordered 04/30/24 Ordered By: Milton De Los Santos Referrals: [facility] [Outside] Aicha Moran MD [Primary Care Provider] - 05/11/24 1:00 pm Discharge Diet: Usual diet Discharge Activity: Increase activity as tolerated Patient Instructions: Opioid Safety Activity Restrictions/Additional Instructions: Continue IV antibiotics as prescribed. PICC line dressing weekly. PICC line should be removed after completion of IV antibiotics. Blood work including CBC and CMP should be done after completion of antibiotics. Should be followed up by PCP. Please follow-up with urologist at the earliest. If Cutler remains in place for more than 1 month should be replaced. Discharge Attestations Time Spent in Discharge Care*: greater than 30 min Specific Discharge Activities: educating patient, discussing with pcp/other providers, discussing with cyanide case hardener/social workers/dc planners, documenting/other paperwork and evaluating patient/reviewing data Status at Discharge: Cognitive status at discharge: cognitively intact , Behavioral status at discharge: cooperative , Functional status at discharge: uses cane/walker , Overall status at discharge: patient is back to baseline Quality Metrics Clinical Quality Measures [ No reported AMI, CVA or VTE this stay] Coding Level of Care Code 62457 Total time (in minutes) for Discharge: 60 Diagnoses Leukocytosis D72.829 Generalized weakness R53.1 Catheter-associated urinary tract infection T83.511A; N39.0 Encounter type: initial encounter Indwelling urinary catheter type: unspecified Pseudomonas urinary tract infection N39.0; B96.5 VRE (vancomycin-resistant Enterococci) A49.1; Z16.21 Primary hypertension I10 Hypertension type: primary hypertension Status post transcatheter aortic valve replacement (TAVR) using bioprosthesis Z95.3 Chronic systolic congestive heart failure I50.22 Heart failure chronicity: chronic
[2024-04-30] MEDS: finasteride 5 mg Tablet PO (09:59)
[2024-04-30] MEDS: carvedilol 25 mg Tablet 12.5 MG PO (09:59)
[2024-04-30 11:00] LABS: SARS Covid-2 Antigen Negative (Negative)
[2024-04-30 11:53] VITALS: BP 133/78; PULSE 64; RESP 16; TEMP 36.4; O2SAT 94
[2024-04-30] MEDS: pantoprazole 40 mg SDV IVP (12:43)
[2024-04-30 15:40] VITALS: BP 133/78; PULSE 64; RESP 16; TEMP 36.4; O2SAT 94
== END 2024-04-30 14:40 | disposition skilled nursing facility (03) | DRG 699 ==
LOC: ER 13:49 → ER IP 17:28 → MEDSURG 20:15 → ER IP 04-24 07:34
PROVIDERS: Admitting Provider Hospitalist; Emergency Provider Family Medicine; PCP Family Medicine; Visit Provider Student in an Organized Health Care Education/Training Program
DX: T83.511A Infection and inflammatory reaction due to indwelling urethral catheter, initial encounter (principal); I13.0 Hypertensive heart and chronic kidney disease with heart failure and stage 1 through stage 4 chronic kidney disease, or unspecified chronic kidney disease; I50.22 Chronic systolic (congestive) heart failure; I69.354 Hemiplegia and hemiparesis following cerebral infarction affecting left non-dominant side; Z16.21 Resistance to vancomycin; I25.10 Atherosclerotic heart disease of native coronary artery without angina pectoris; K21.9 Gastro-esophageal reflux disease without esophagitis; E78.5 Hyperlipidemia, unspecified; N18.9 Chronic kidney disease, unspecified; N39.0 Urinary tract infection, site not specified; B96.5 Pseudomonas (aeruginosa) (mallei) (pseudomallei) as the cause of diseases classified elsewhere; Y84.6 Urinary catheterization as the cause of abnormal reaction of the patient, or of later complication, without mention of misadventure at the time of the procedure; R53.1 Weakness; R07.9 Chest pain, unspecified; Z87.01 Personal history of pneumonia (recurrent); Z66 Do not resuscitate; R11.2 Nausea with vomiting, unspecified; Z95.3 Presence of xenogenic heart valve; Z95.1 Presence of aortocoronary bypass graft; Z95.5 Presence of coronary angioplasty implant and graft; Z90.49 Acquired absence of other specified parts of digestive tract; Z11.52 Encounter for screening for COVID-19; Z79.82 Long term (current) use of aspirin; Z79.890 Hormone replacement therapy; Z79.899 Other long term (current) drug therapy; Z88.8 Allergy status to other drugs, medicaments and biological substances; Z95.810 Presence of automatic (implantable) cardiac defibrillator; Z86.711 Personal history of pulmonary embolism
CPT/HCPCS: 36415; 36416; 36569; 71045; 80048; 80053; 81001; 82962; 83605; 84484; 85025; 87040; 87426; 87637; 93005; 93970; 96372; 96374; 97110; 97116; 97161; 97167; 97530; 97535; 99285; C1751; G0378; J1644; J1650; J1956; J2185; J2405; J2470; J2543

== ENCOUNTER → 2024-06-08 11:04 | Outpatient (BNVA) | payer MEDICARE, SELFPAY | PROVIDERS: PCP Family Medicine; Visit Provider Family Medicine | DX: I10 Essential (primary) hypertension (principal) | CPT/HCPCS: 80053; 85025 ==

== ENCOUNTER 2024-07-31 09:16 | Inpatient (IN) | payer MEDICARE, SELFPAY ==
[2024-07-31] VITALS (13 sets, daily range): BP systolic 105–170; BP diastolic 75–94; PULSE 62–81; RESP 12–20; TEMP 36.4–36.8; O2SAT 90–97; BMI 23.7; BMI 25.0
--- NOTE | 2024-07-31 09:20 | ECG_ITS ---
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 Measurements Intervals [place] Rate: 63 P: 131 IA: 129 QRS: 260 QRSD: 153 T: 169 QT: 480 QTc: 493 Interpretive Statements ELECTRONIC VENTRICULAR PACEMAKER ABNORMAL RHYTHM ECG Compared to ECG 04/29/2024 16:42:40 No significant changes Electronically Signed On 07-31-2024 16:25:25 CDT by Troy Evans M.D. [email or web address]
--- NOTE | 2024-07-31 09:20 | CT_ITS ---
WS: [id number] CT HEAD TECHNIQUE: Noncontrast CT of the head obtained from the skullbase to the vertex. CLINICAL INFORMATION: Symptoms of acute stroke COMPARISON: None. Bone scale surface stroke head CT generally seen in the acute ulnar at the hip was broken by the LEFT its is mainly a comminuted greater trochanter but extends slightly like into the base of the femur there but not all the way across the distal provide the supine amount of RIGHT DLP: [address] scans at [facility] use at least one of these dose optimization techniques: automated exposure control; mA and/or kV adjustment per patient size (includes targeted exams where dose is matched to clinical indication); or iterative reconstruction. FINDINGS: No evidence of intracranial hemorrhage or mass effect. Ventricular system and basal cisterns are patent. Moderate small vessel changes with moderate parenchymal volume loss. Chronic lacunar infarcts RIGHT caudate. No extra-axial fluid collections. No evidence of mass or mass effect. Vascular calcification. Paranasal sinuses and mastoid air cells are well aerated. .Normal visualized soft tissues. CT/CT head thrombolytic [id number] IMPRESSION: 1. No evidence of intracranial hemorrhage or mass effect. 2. No acute intracranial findings. Notified Nayana Aguilar MD at 07/31/2024 9:45 AM.
--- NOTE | 2024-07-31 09:21 | W.ED.NEUROSD ---
HPI - Neuro Symptoms/Deficit General: Chief Complaint: Neuro Symptoms/Deficit Stated Complaint: stroke symptoms Time Seen by Provider: 07/31/24 09:18 Source: patient Mode of arrival: ambulatory Limitations: no limitations History of Present Illness: 83-year-old male who states that he woke up this morning with left-sided facial droop along with some left-sided arm weakness. He states his last known normal was when he went to bed last night at 10 PM. He had a history of a stroke 2 years ago denies any headache Associated symptoms: Deny chest pain, headache(s), nausea or vomiting Related Data Home Medications ?Medication ?Instructions ?Recorded ?Confirmed finasteride 5 mg tablet 5 mg PO DAILY 01/16/24 07/31/24 mtreukyj-mdhppshu-fihlc acid 400 1 tab PO QAM 01/24/24 07/31/24 mcg-vit K 20 mcg-lycop 300 mcg tablet (Men's Daily Formula) tamsulosin 0.4 mg capsule 0.4 mg PO QPM 01/24/24 07/31/24 docusate sodium 50 mg capsule 50 mg PO DAILY 07/31/24 07/31/24 Previous Rx's ?Medication ?Instructions ?Recorded aspirin 81 mg chewable tablet 81 mg PO QAM #90 tabs 12/25/21 levothyroxine 50 mcg tablet 50 mcg PO QAM #90 tabs 04/24/23 (Synthroid) isosorbide mononitrate 30 mg 15 mg (1/2 x 30 mg) PO DAILY #90 06/24/23 tablet,extended release 24 hr tabs furosemide 20 mg tablet 20 mg PO .SAT/SAT/SAT/SUN #90 tabs 09/27/23 amlodipine 5 mg tablet 5 mg PO QAM #90 tabs 02/27/24 Allergies Allergy/AdvReac Type Severity Reaction Status Date / Time rosuvastatin (From Crestor) Allergy Mild Makes me Verified 06/08/24 10:09 daria nitroglycerin Allergy Unknown Makes me Verified 06/08/24 10:09 wild amitriptyline AdvReac Made me Verified 06/08/24 10:09 piter and daria, wasn't thinking right rivaroxaban (From Xarelto) AdvReac black stool Verified 06/08/24 10:09 Review of Systems Const: Denies: fever(s), chills, body aches or change in appetite Eyes: Denies: blurry vision or eye discomfort ENMT: Denies: throat pain or dental pain Card: Denies: chest pain Resp: Denies: dyspnea GI: Denies: abdominal pain, nausea, vomiting or diarrhea Musc: Denies: neck pain or back pain Skin/Breast: Denies: rash Neuro: Reports: weakness in extremities; Denies: headache(s) PFSH ED PFSH: Medical History VRE (vancomycin-resistant Enterococci) Pseudomonas urinary tract infection 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 Seborrheic keratoses Stroke Dizziness and giddiness Fatigue Dyslipidemia Diverticulosis Hiatal hernia History of pulmonary embolism History of Sindy-Kirk syndrome Chronic kidney disease Insomnia GERD (gastroesophageal reflux disease) Systolic congestive heart failure Thoracic aortic aneurysm CAD (coronary artery disease) Surgical History Status post transcatheter aortic valve replacement (TAVR) using bioprosthesis aortic stenosis History of drainage of abscess Percutaneous, right lower quadrant suspected appendiceal abscess History of cataract surgery Bilateral History of coronary artery stent placement Reports a total of 3 stents after her last CABG done in [facility] History of coronary artery bypass graft 1996 in 2010 -- 3 vessels total History of cholecystectomy Family History Mother Diabetes Stroke Father Gallbladder disease Brother Chronic kidney disease (CKD) Diabetes Denies family history of CAD (coronary artery disease) Clotting disorder Dementia Suicide Anesthesia complication Bleeding disorder Lung disease Cancer Social History Smoking and tobacco/nicotine status: never used tobacco/nicotine Alcohol intake: never Substance/Drug Use: never Caregiver/support person: Yes Household members: spouse NIH stroke score NIHSS: Level Of Consciousness - 1a: 0 Level Of Consciousness Questions - 1b: Both Correct Level Of Consciousness Commands - 1c: Both Correct Best Gaze - 2: Normal Visual Monson - 3: No Visual Loss Facial Palsy - 4: Partial Paralysis Motor Arm Right - 5: No Drift Motor Arm Left - 5: Drift Motor Leg Right - 6: No Drift Motor Leg Left - 6: No Drift Limb Ataxia - 7: Absent Sensory - 8: Normal Best Language - 9: No Aphasia Dysarthia - 10: Normal Extinction And Inattention - 11: 0 Score: Total Score: 3 Physical Exam Const: COMMON NORMALS: no acute distress, patient oriented x3 and healthy appearing HENMT: COMMON NORMALS: normocephalic and atraumatic HEAD & SCALP: normocephalic and atraumatic Eye: COMMON NORMALS: conjunctivae normal CONJUNCTIVA: Yes conjunctivae normal Neck/C-Spine: COMMON NORMALS: full ROM and supple Chest: COMMONS NORMALS: normal inspection of the chest Resp: COMMON NORMALS: normal respiratory effort, No retractions, No use of accessory muscles and clear to auscultation bilaterally AUSCULTATION: clear to auscultation bilaterally Cardio: COMMON NORMALS: regular rate, regular rhythm and No murmurs present (Cardio) RATE: regular rate RHYTHM: regular rhythm Extremity: COMMON NORMALS: normal to inspection and full ROM Neuro: COMMON NORMALS: patient oriented x3, moves all extremities and no focal motor deficits OTHER: Left-sided facial droop noted does have a drift to left arm Psych: COMMON NORMALS: mental status grossly normal, Normal thought process present and cooperative THOUGHT PROCESS: Normal thought process present Skin: COMMON NORMALS: no rashes or lesions noted and no wounds GENERAL SKIN EXAM: no rashes or lesions noted Course Vital Signs: Vital signs: Vital Signs Temperature 97.6 F 07/31/24 09:20 Pulse Rate 62 07/31/24 09:20 Respiratory Rate 17 07/31/24 09:20 Blood Pressure 170/94 07/31/24 09:20 Pulse Oximetry 96 07/31/24 09:20 Oxygen Delivery Me thod Room Air 07/31/24 09:20 MDM - Neuro Symptoms/Deficit Medical Decision Making Patient presents with left-sided facial droop and weakness likely CVA he is out of the treatment window as his last known normal was 2 AM patient was seen by the neurologist will admit at this time. Medical Records I reviewed the patient's medical records. Lab Data I reviewed the patient's lab results. 07/31/24 09:26 07/31/24 09:[address] 07/31/24 09:20 IMPRESSION: 1. No evidence of intracranial hemorrhage or mass effect. 2. No acute intracranial findings. Notified Nayana Aguilar MD at 07/31/2024 9:45 AM. Head/Neck CTA 07/31/24 10:03 IMPRESSION: 1. RIGHT proximal ICA stenosis measures approximately 50 to 60% unchanged compared to 2023. 2. No significant LEFT cervical ICA stenosis. 3. LEFT dominant vertebral artery. Smaller but patent RIGHT vertebral artery ends in PICA. Segmental stenosis in the RIGHT proximal vertebral artery. 4. Mild intracranial atheromatous disease. No proximal flow-limiting stenosis. 5. Moderate atheromatous plaque aortic arch. 6. 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 Laboratory Results WBC 6.00 10^3/uL (3.29-11.43) 07/31/24 09: RBC 4.56 10^6/uL (3.85-5.65) 07/31/24 09:26 Hgb 15.00 g/dL (11.27-16.99) 07/31/24 09:26 Hct 43.2 % (37-53) 07/31/24 09: MCV 94.7 fl (82-101) 07/31/24 09:26 MCH 32.9 pg (27-33) 07/31/24 09: MCHC 34.7 g/dL (30-55) 07/31/24 09: RDW 12.6 % (12.1-15.1) 07/31/24 09:26 Plt Count 123 10^3/cmm (157-399) L 07/31/24 09:26 MPV 10.6 fL (7.4-10.4) H 07/31/24 09:26 Neut % (Auto) 66.4 % 07/31/24 09:26 Lymph % (Auto) 16.8 % 07/31/24 09:26 [place] % (Auto) 8.3 % 07/31/24 09:26 Eos % (Auto) 7.7 % 07/31/24 09:26 Baso % (Auto) 0.5 % 07/31/24 09: Neut # (Auto) 3.98 10^3/uL (1.8-7.7) 07/31/24 09:26 Lymph # (Auto) 1.0 10^3/uL (0.8-4.8) 07/31/24 09:26 [place] # (Auto) 0.5 10^3/uL (0.2-0.9) 07/31/24 09:26 Eos # (Auto) 0.5 10^3/uL (0.0-0.8) 07/31/24 09:26 Baso # (Auto) 0.0 10^3/uL (0.0-0.1) 07/31/24 09:26 Nucleated RBC % (auto) 0 % 07/31/24 09: Nucleated RBCs # 0.0 /100WBC 07/31/24 09:26 PT 13.90 SECONDS (12.1-14.9) 07/31/24 09: INR 1.00 (0.8-1.2) 07/31/24 09: APTT 30.8 SECONDS (23.9-36.7) 07/31/24 09:26 Sodium 142 mmol/L (136-145) 07/31/24 09:26 Potassium 3.9 mmol/L (3.5-5.1) 07/31/24 09: Chloride 107 mmol/L (98-107) 07/31/24 09:26 Carbon Dioxide 23 mmol/L (22-29) 07/31/24 09:26 Anion Gap 15.9 (5-19) 07/31/24 09:26 BUN 27 mg/dL (8-23) H 07/31/24 09:26 Creatinine 1.5 mg/dL (0.7-1.2) H 07/31/24 09:26 GFR Calculation Not Reportable 07/31/24 09:26 Glucose 130 mg/dL (65-115) H 07/31/24 09:26 POC Glucose 126 mg/dL (70-110) H 07/31/24 09:24 Calculated Osmolality 301 mOsm/kg (285-295) H 07/31/24 09:26 Calcium 9.2 mg/dL (8.5-10.5) 07/31/24 09:26 Total Bilirubin 0.5 mg/dL (0.15-1.2) 07/31/24 09:26 AST 17 U/L (0-40) 07/31/24 09:26 ALT 11 U/L (0-41) 07/31/24 09:26 Alkaline Phosphatase 94 U/L (40-130) 07/31/24 09:26 Total Protein 7.2 g/dL (6.6-8.7) 07/31/24 09:26 Albumin 4.1 g/dL (3.5-5.2) 07/31/24 09:26 Globulin 3.1 g/dL (1.3-4.6) 07/31/24 09:26 TSH 3.89 uIU/mL (0.27-4.20) 07/31/24 09:26 All radiology interpretation(s) finalized by discharge Discharge Plan Discharge Patient Disposition: Admitted As Inpatient Clinical Impression: CVA (cerebral vascular accident) Condition: Stable Coding Level of Care Code ED Fry Cook for Gilbert Bettencourt
[2024-07-31 09:28] LABS: Glucose Point of Care 126 mg/dL (70-110)
[2024-07-31 09:34] LABS: Basophils % 0.5 %; Eosinophils # 0.5 10^3/uL (0.0-0.8); Eosinophils % 7.7 %; Hematocrit 43.2 % (37-53); Lymphocytes % 16.8 %; Mean Corpuscular HGB Conc 34.7 g/dL (30-55); Mean Corpuscular Hemoglobin 32.9 pg (27-33); Mean Corpuscular Volume 94.7 fl (82-101); Mean Platelet Volume 10.6 fL (7.4-10.4); Monocytes # 0.5 10^3/uL (0.2-0.9); Monocytes % 8.3 %; Neutrophils # 3.98 10^3/uL (1.8-7.7); Neutrophils % 66.4 %; Nucleated Red Blood Cells % 0 %; Platelet Count 123 10^3/cmm (157-399); Red Blood Count 4.56 10^6/uL (3.85-5.65); Red Cell Distribution Width 12.6 % (12.1-15.1)
[2024-07-31 09:45] LABS: Partial Thromboplastin Time 30.8 SECONDS (23.9-36.7)
--- NOTE | 2024-07-31 10:03 | CT_ITS ---
WS: [id number] CTA HEAD AND NECK TECHNIQUE: Contrast enhanced CTA of the head and neck with coronal and sagittal reformatted images and maximum intensity projection (MIP) images. NASCET criteria utilized. CLINICAL INFORMATION: cva COMPARISON: 2023 DLP: 499.[address] scans at [facility] use at least one of these dose optimization techniques: automated exposure control; mA and/or kV adjustment per patient size (includes targeted exams where dose is matched to clinical indication); or iterative reconstruction. FINDINGS: RIGHT: Moderate atheromatous plaque RIGHT carotid bulb extending into the ICA. RIGHT ICA stenosis measures blank. RIGHT ICA is patent to the skull base. LEFT: Mild atheromatous plaque LEFT carotid bulb. No significant LEFT ICA stenosis. LEFT ICA is patent to the skull base. Cavernous carotid calcification. LEFT dominant vertebral artery. Smaller but patent RIGHT vertebral artery ends in PICA. INTRACRANIAL CTA: Cavernous carotid calcification. Cavernous carotid arteries remain patent. Normal vascularity to the CRUZ territory. Moderate stenosis distal RIGHT M1 segment unchanged. Distal vessels remain patent. Normal vascularity to the MCA territories bilaterally. No proximal flow-limiting stenosis. Mild intracranial atheromatous disease. Basilar artery is patent. Symmetric vascularity to the [employer] territory bilaterally. Mild segmental stenosis in the [employer] vessels. Distal vessels appear patent. CT/CT angio headneck* [id number] IMPRESSION: 1. RIGHT proximal ICA stenosis measures approximately 50 to 60% unchanged comp ared to 2023. 2. No significant LEFT cervical ICA stenosis. 3. LEFT dominant vertebral artery. Smaller but patent RIGHT vertebral artery e nds in PICA. Segmental stenosis in the RIGHT proximal vertebral artery. 4. Mild intracranial atheromatous disease. No proximal flow-limiting stenosis. 5. Moderate atheromatous plaque aortic arch. 6. 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 unchanged measuri ng 2 mm
[2024-07-31 10:04] LABS: Alanine Aminotransferase 11 U/L (0-41); Albumin Level 4.1 g/dL (3.5-5.2); Alkaline Phosphatase 94 U/L (40-130); Anion Gap 15.9 (5-19); Aspartate Amino Transferase 17 U/L (0-40); Blood Urea Nitrogen 27 mg/dL (8-23); Calcium 9.2 mg/dL (8.5-10.5); Carbon Dioxide 23 mmol/L (22-29); Chloride 107 mmol/L (98-107); Globulin 3.1 g/dL (1.3-4.6); Glucose 130 mg/dL (65-115); Osmolality Calculated 301 mOsm/kg (285-295); Potassium 3.9 mmol/L (3.5-5.1); Sodium 142 mmol/L (136-145); Thyroid Stimulating Hormone 3.89 uIU/mL (0.27-4.20); Total Bilirubin 0.5 mg/dL (0.15-1.2); Total Protein 7.2 g/dL (6.6-8.7)
[2024-07-31] MEDS: iohexol 350 mg/mL 500 mL Btl (per mL) IV (10:28)
--- NOTE | 2024-07-31 10:29 | P.PNCC_ITS ---
Stroke Alert Activation ED Arrival Date: 07/31/24 ED Arrival Time: 09:20 Other Last Known Well Infomation: Dr. Aguilar asked me to come straight to the emergency department for this 83-year-old man who woke up with symptoms at 6 AM. He was weak on the left si de. His daughter was contacted and he was brought to [facility] by his daughter with last known well 10 PM last night. Through more direct questioning I was able to establish that the patient got up and walked to the bathroom with his walker at 2 AM to urinate but he did not get up again until 6 AM and that is when he discovered that he could not walk. His daughter says he was able to wa lk to the car with his walker. On examination he has left hemiataxia and he says that his new. He is tearful and upset over the idea of being in the hospital. I saw him in my office 01/29/2022 for residual from a right middle cerebral artery stroke with left-sided weakness. He was mildly weak on the left side at the time of my exam but could walk with a wheeled walker. 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 CT angiogram showed moderate carotid stenosis bilaterally but nothing critical and left middle cerebral artery intracranial stenosis.. He had a GI bleed when he was on Xarelto after pulmonary embolism but that was quite a long time ago. There has been no change in his neurologic state according to his daughter Stroke Alert Activated by: Triage Stroke Alert Activation Time: 09:21 Stroke MD @ Bedside Time: 09:22 NIH stroke score NIHSS: Level Of Consciousness - 1a: 0 Level Of Consciousness Questions - 1b: Both Correct Level Of Consciousness Commands - 1c: Both Correct Best Gaze - 2: Normal Visual Monson - 3: No Visual Loss Facial Palsy - 4: Minor Paralysis Motor Arm Right - 5: No Drift Motor Arm Left - 5: Drift Motor Leg Right - 6: No Drift Motor Leg Left - 6: No Drift Limb Ataxia - 7: Present In Two Limbs Sensory - 8: Normal Best Language - 9: No Aphasia Dysarthia - 10: Normal Extinction And Inattention - 11: 0 Score: Total Score: 4 Stroke Alert Data/Treatment Time to CT of Head: 09:20 CT Results Time: 09:45 CT Impression: No acute changes. Diffuse atrophy. Chronic infarcts in the right caudate. Diffuse white matter changes. Stroke Risk Factors: atrial fibrillation (He has been experiencing palpitations), coronary artery disease, hyperlipidemia, hypertension, previous DE and depression tPA Contraindication: tPA Contraindication: Treatment not indcated and Medical contraindication tPA Admin Prior to Arrival: No Patient & Family Educated on: Cause of Stroke, Treament Plan, Prognosis and tPA Risks/Benefits Other Patient & Family Education: I explained that the patient is not a candidate for tPA or TNK and I explained that at length and his daughter and the patient showed good understanding. He is very depressed and I took time to try to comfort him for the sadness he has over being hospitalized again. Critical Care Time Critical Care Time: 30 - 74 mins A&P Assessment and plan (1) Lacunar stroke of right subthalamic region: His symptoms are in keeping with a lacunar stroke with left hemiataxia. He probably needs to come in the hospital because I doubt that he can go home because he cannot walk. We will need to hook him up to telemetry but his options are limited as he had a GI bleed on blood thinners before. I took time to talk with him and his daughter about this and the answer questions. I came straight to the ER to evaluate him for possible TNK but he has too many contraindications. (2) Depression as late effect of cerebrovascular accident (CVA): (3) Hypertension: PDMP PDMP Reviewed: Not Reviewed Coding Level of Care Code Acute Code for [facility] Fwd Diagnoses Lacunar stroke of right subthalamic region I63.81 Depression as late effect of cerebrovascular accident (CVA) I69.398; F06.31 Primary hypertension I10 Hypertension type: primary hypertension
[2024-07-31] MEDS: aspirin 81 mg Chew Tablet 324 MG PO (10:51)
[2024-07-31 11:38] LABS: Bilirubin Urine Negative (Negative); Blood Urine 1+ (Negative); Glucose Urine UA Negative (Normal); Ketones Urine Negative (Negative); Leukocyte Esterase Urine 2+ (Negative); Nitrate Urine Negative (Negative); Protein Urine Trace (Negative); Specific Gravity, Urine 1.026 (1.005-1.030); Urine Appearance Clear (CLEAR); Urine Color Yellow (Yellow); pH Urine 5.5 (5-7)
[2024-07-31 11:41] LABS: Add Urine Microscopic? YES; Bacteria Urine None Seen /hpf; Hyaline Casts Urine 0.81 /lpf; Squamous Epithelial Cell Urine 0-5 /hpf (0-5); WBC Urine 51-100 /hpf (0-5)
[2024-07-31 11:45] LABS: Amphetamines Screen Urine Negative (Negative); Barbiturates Screen Urine Negative (Negative); Benzodiazepines Screen Urine Negative (Negative); Cocaine Screen Urine Negative (Negative); Opiate Screen Urine Negative (Negative); PCP Screen Urine Negative (Negative); THC Screen Urine Negative (Negative)
--- NOTE | 2024-07-31 11:55 | PM.HP ---
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 He was brought to the emergency department after waking up around 6am with worsened left-sided weakness. Last known well was around 10pm the previous night; he was able to walk to the bathroom with a walker at 2am. In the ED, he was evaluated by neurology and found to have new left hemiataxia and an NIHSS of 4. He was not a candidate for TNK due to contraindications. He denies headache, fever, chills, cough, shortness of breath, chest pain, nausea, vomiting, diarrhea, abdominal pain, rash, dysuria, hematuria, or melena. He reports no recent pulmonary embolism. He lives at home with his , who also has a history of stroke. He does not smoke or drink alcohol. He is currently able to ambulate with a walker and reports that his left-sided weakness has improved since this morning. He is currently taking aspirin and a blood pressure medication (possibly carvedilol), but is unsure about his cholesterol medication. He has a history of heart failure, prior GI bleed, and chronic Cutler catheter use. He was admitted in April for a urinary tract infection. Review of Systems Const: Denies: fever(s), chills, body aches or malaise ENMT: Denies: throat pain Card: Denies: chest pain, edema, pre-syncope or dyspnea on exertion Resp: Denies: dyspnea, productive cough, change in phlegm color or hemoptysis GI: Denies: abdominal pain, nausea, vomiting, diarrhea, constipation, hematochezia or melena : Denies: flank pain, difficulty urinating, urinary frequency or hematuria Musc: Denies: back pain, joint swelling or joint redness Skin/Breast: Denies: rash or new lesions Neuro: Reports: weakness in extremities and difficulty walking; Denies: headache(s) or confusion Medications/Allergies Home Medications ?Medication ?Instructions ?Recorded ?Confirmed ?Last Taken ?Type aspirin 81 mg chewable tablet 81 mg PO QAM #90 tabs 12/25/21 07/31/24 07/31/24 Rx levothyroxine 50 mcg tablet 50 mcg PO QAM #90 tabs 04/24/23 07/31/24 07/31/24 Rx (Synthroid) isosorbide mononitrate 30 mg 15 mg (1/2 x 30 mg) PO DAILY #90 06/24/23 07/31/24 07/31/24 Rx tablet,extended release 24 hr tabs furosemide 20 mg tablet 20 mg PO .SAT/SAT/SAT/SUN #90 tabs 09/27/23 07/31/24 04/22/24 Rx finasteride 5 mg tablet 5 mg PO DAILY 01/16/24 07/31/24 07/31/24 History gnstsznm-krwrocaa-ugmuh acid 400 1 tab PO QAM 01/24/24 07/31/24 07/31/24 History mcg-vit K 20 mcg-lycop 300 mcg tablet (Men's Daily Formula) tamsulosin 0.4 mg capsule 0.4 mg PO QPM 01/24/24 07/31/24 07/30/24 20:00 History amlodipine 5 mg tablet 5 mg PO QAM #90 tabs 02/27/24 07/31/24 07/31/24 Rx docusate sodium 50 mg capsule 50 mg PO DAILY 07/31/24 07/31/24 07/31/24 History Allergies Allergy/AdvReac Type Severity Reaction Status Date / Time rosuvastatin (From Crestor) Allergy Mild Makes me Verified 06/08/24 10:09 daria nitroglycerin Allergy Unknown Makes me Verified 06/08/24 10:09 wild amitriptyline AdvReac Made me Verified 06/08/24 10:09 weak and daria, wasn't thinking right rivaroxaban (From Xarelto) AdvReac black stool Verified 06/08/24 10:09 PFSH Acute PFSH: Medical History VRE (vancomycin-resistant Enterococci) Pseudomonas urinary tract infection 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 Seborrheic keratoses Stroke Dizziness and giddiness Fatigue Dyslipidemia Diverticulosis Hiatal hernia History of pulmonary embolism History of Sindy-Kirk syndrome Chronic kidney disease Insomnia GERD (gastroesophageal reflux disease) Systolic congestive heart failure Thoracic aortic aneurysm CAD (coronary artery disease) Surgical History Status post transcatheter aortic valve replacement (TAVR) using bioprosthesis aortic stenosis History of drainage of abscess Percutaneous, right lower quadrant suspected appendiceal abscess History of cataract surgery Bilateral History of coronary artery stent placement Reports a total of 3 stents after her last CABG done in [facility] History of coronary artery bypass graft 1996 in 2010 -- 3 vessels total History of cholecystectomy Family History Mother Diabetes Stroke Father Gallbladder disease Brother Chronic kidney disease (CKD) Diabetes Denies family history of CAD (coronary artery disease) Clotting disorder Dementia Suicide Anesthesia complication Bleeding disorder Lung disease Cancer Social History Smoking and tobacco/nicotine status: never used tobacco/nicotine Alcohol intake: never Substance/Drug Use: never Caregiver/support person: Yes Household members: spouse Vitals/I&O/Wt Last Vital Signs Temp 97.6 F 07/31/24 09:20 Pulse 62 07/31/24 09:20 Resp 17 07/31/24 09:20 BP 170/94 07/31/24 09:20 Pulse Ox 96 07/31/24 09:20 O2 Del Method Room Air 07/31/24 09:20 Weight last 48 hrs Weight 81.647 kg Physical Exam Const: COMMON NORMALS: patient oriented x3 and alert GENERAL APPEARANCE: cooperative ORIENTATION/CONSCIOUSNESS: Yes awake HENMT: COMMON NORMALS: oropharynx normal Neck/C-Spine: COMMON NORMALS: no JVD Resp: COMMON NORMALS: normal respiratory effort and clear to auscultation bilaterally AUSCULTATION: clear to auscultation bilaterally Cardio: COMMON NORMALS: no JVD, regular rhythm, S1 normal heart sound present, S2 normal heart sound present and No murmurs present (Cardio) RHYTHM: regular rhythm HEART SOUNDS: S1 normal heart sound present and S2 normal heart sound present GI: COMMON NORMALS: Normal to inspection, nondistended, normoactive bowel sounds present, Soft to palpation and non-tender PALPATION: Yes Soft to palpation Extremity: COMMON NORMALS: no joint enlargement and no pedal edema Neuro: COMMON NORMALS: patient oriented x3 and moves all extremities SENSORIUM/ORIENTATION: Yes alert OTHER: Awake and alert, following directions without issues. Left side facial droop. Minimal left-sided weakness, however, symptoms did show improvement. No issues with FNF bilaterally, no difficulty tracking horizontally. Visual bustos intact to confrontation. No upper or lower extremity drift. Oolh-xl-ydcx intact although with some difficulty. Sensation symmetrical, no sensory extinction. Skin: COMMON NORMALS: no rashes or lesions noted GENERAL SKIN EXAM: no rashes or lesions noted Data 07/31/24 09:26 07/31/24 09:26 A&P Assessment and plan (1) CVA (cerebral vascular accident): Acute ischemic stroke (new left-sided symptoms) : Patient presented with acute worsening of left-sided weakness upon waking, with last known well at 10pm and able to ambulate at 2am. New left hemiataxia noted. NIHSS 4. Not a candidate for TNK due to contraindications. Neurology evaluated in ED. Weakness improved since initial presentation. Reviewed vitals, CBC, INR, CMP, UA, UDS, CT head, CTA head and neck, EKG, ER provider note, neurology note, discussed with ER provider and neurology. - Hospital admission for monitoring and further workup of stroke risk factors. Monitor on telemetry. Obtain TTE. - Continue aspirin. 21 days of Plavix. Monitor for risk of bleeding with history of GI bleed with anticoagulation. - Monitor neurological status - Telemetry monitoring for arrhythmias (e.g., atrial fibrillation) - Obtain echocardiogram to assess for cardiac source of embolism - Physical therapy, occupational therapy, and speech therapy consults - Reassess daily; consider discharge if stable and all studies are unremarkable - Outpatient neurology follow-up after discharge Plan History of stroke (right MCA, residual left-sided weakness) : History of right MCA stroke two years ago with residual mild left-sided weakness prior to current event. Previous lacunar pure motor stroke. Heart failure (EF 40-45%) : History of heart failure with reduced ejection fraction (40-45%). Not currently in exacerbation. - Continue current heart failure management - Monitor volume status and cardiac rhythm during hospitalization Chronic kidney disease : Chronic kidney disease, stage not specified. - Monitor renal function during hospitalization Coronary artery disease (CABG, stents) : History of coronary artery disease, status post CABG and stents. Continue aspirin - Continue cardiac medications as appropriate Aortic valve replacement (about 1 year ago) : History of aortic valve replacement about one year ago. Hyperlipidemia : History of hyperlipidemia. Patient unsure if currently taking statin; allergies to rosuvastatin. - Confirm current statin use and adjust as needed, avoiding rosuvastatin due to allergy GERD : History of gastroesophageal reflux disease. History of GI bleed with anticoagulation : History of gastrointestinal bleeding while on anticoagulation therapy. No anemia currently. Currently without blood in the stool or dark black stools. Nurses blood counts. BPH: Continue Flomax and finasteride PDMP PDMP Reviewed: Not Reviewed Attestations Medical Necessity Statement*: Place in observation for additional assessment and management after CVA. and High MDM includes amount and/or complexity of data reviewed/ordered [ previous or external records, resulted lab(s)/test(s), ordered lab(s)/test(s) and other healthcare professional discussion] and described risk of complication, morbidity or mortality of management as documented Diagnoses CVA (cerebral vascular accident) I63.9
[2024-07-31 12:07] LABS: Add Urine Culture? Yes
--- NOTE | 2024-07-31 13:23 | USCV_ITS ---
Surface, Eliza Age: 83 Gender: M : 1940 Exam Date: 07/31/2024 17:28 Ordering Phys: Anam Ziegler MD Technologist: Brian Liz Exam Location: [facility] [place] Indication: assess for thrombus or shunt BP: 161 / 86 HR: Rhythm: Sinus Technical Quality: Adequate MEASUREMENTS (Male / Female) Normal Values 2D ECHO LV Diastolic Diameter PLAX 4.4 cm 4.2 - 5.9 / 3.9 - 5.3 cm IVS Diastolic Thickness 1.5 cm 0.6 - 1.0 / 0.6 - 0.9 cm IVS Systolic Thickness 1.7 cm LVPW Diastolic Thickness 2.0 cm 0.6 - 1.0 / 0.6 - 0.9 cm LVPW Systolic Thickness 2.2 cm LVOT Diameter 2.1 cm LV Ejection Fraction 2D Teich 41.9 % LV Ejection Fraction MOD 4C 41.8 % LV Ejection Fraction MOD 2C 37.3 % LV Ejection Fraction 2C AL 36.2 % LA Diameter 4.2 cm RA Systolic Volume 4C AL 29.7 ml RA Systolic Volume 4C MOD 26.5 ml LA Sys Volume AL 55.4 cm cubed LA Sys Volume Index AL 26.2 cm cubed/m squared Aorta at Sinotubular Diameter 2.3 cm M-MODE LA Ao Ratio MM 0.9 AV Cusp Separation MM 1.3 cm FINDINGS Left Ventricle Mildly increased left ventricular cavity size. Moderately decreased left ventricular systolic function. Left ventricular ejection fraction is estimated at 40 %. Global left ventricular hypokinesis. Right Ventricle Right Atrium Negative bubble study suggestive of no significant intracardiac shunt. Left Atrium Moderately increased left atrial size. Mitral Valve Aortic Valve Mild aortic valve calcification. No aortic valve stenosis. Tricuspid Valve Pulmonic Valve Pericardium Aorta IVC CONCLUSIONS Limited echocardiogram Mildly increased left ventricular cavity size. Moderately decreased left ventricular systolic function. Left ventricular ejection fraction is estimated at 40 %. Global left ventricular hypokinesis. Negative bubble study suggestive of no significant intracardiac shunt. There is no pericardial effusion. Adam Puckett MD (Electronically Signed) Final Date: 02 Aug 2024 16:30 S
[2024-07-31] MEDS: cefTRIAXone 1,000 mg SDV 1000 MG IVP (14:26)
[2024-07-31] MEDS: enoxaparin 40 mg/0.4 mL Syringe SUBCUT (15:33)
[2024-07-31] MEDS: clopidogrel 75 mg Tablet PO (15:33)
[2024-07-31] MEDS: tamsulosin 0.4 mg Capsule PO (17:10)
[2024-07-31] MEDS: atorvastatin 40 mg Tablet PO (22:39)
[2024-07-31] MEDS: acetaminophen 325 mg Tablet 650 MG PO (22:41)
[2024-08-01] VITALS: BP 137/78; PULSE 68; RESP 18; TEMP 36.6; O2SAT 96
[2024-08-01 03:31] LABS: Estmated Average Glucose 103; Hemoglobin A1C 5.2 % (4.0-6.0)
[2024-08-01 03:40] LABS: Chol HDL Ratio 3.71 mg/dL (1.0-5.00); Cholesterol 152 mg/dL (0-200); HDL Cholesterol 41 mg/dL (60-100); LDL Cholesterol Calculated 96 mg/dL (50-129); LDL HDL Ratio 2.34 RATIO (0.00-3.22); Triglycerides 73 mg/dL (0-150)
[2024-08-01 04:00] VITALS: BP 177/79; PULSE 62; RESP 19; TEMP 36.8; O2SAT 96
[2024-08-01] MEDS: levothyroxine 50 mcg Tablet PO (06:27)
[2024-08-01] MEDS: aspirin 81 mg Chew Tablet PO (06:27)
[2024-08-01 08:00] VITALS: BP 159/98; PULSE 68; RESP 17; TEMP 36.4; O2SAT 97
[2024-08-01] MEDS: pantoprazole 40 mg SDV IVP ×2 (09:33→20:46)
[2024-08-01] MEDS: sucralfate 1 gm Tablet PO ×3 (09:33→20:46)
[2024-08-01] MEDS: clopidogrel 75 mg Tablet PO (09:33)
[2024-08-01] MEDS: finasteride 5 mg Tablet PO (09:33)
--- NOTE | 2024-08-01 10:51 | PC.NURSE ---
Pt history of trammell catheter (6mo), frequent urology visits, and retention. Bladder scan shows 255ml post void. Notified Dr. Marte.
[2024-08-01 11:42] VITALS: BP 170/95; PULSE 79; RESP 18; TEMP 36.4; O2SAT 91
--- NOTE | 2024-08-01 11:53 | PC.CHAP ---
Pastoral Care Encounter/Spiritual Assessment Type of Contact [] Declined endoscopy tech visit [] Patient/Family/Request visit [] Outpatient visit [] Follow-up visit [] Physician referral [] Code/Alert [x] Routine visit [] Staff referral [] Actively dying [] Patient sleeping [] Family support [] [] Out of room [] Palliative care [] [] Receiving care in room [] Pre-surgical visit [] Trauma [] Long length of stay [] ICU visit [] Other: Relational/Emotional Strength [x] Patient feels connected with others/family/visitors/staff [] Distress [] Loneliness/isolation [] Abandonment Spirituality of Patient [x] Person of Irene [] Attends Mandaen of their Irene [x] Believes in Prayer [] Reads Bible or Orthodoxy materials [] There are Spiritual issues to be addressed [employer] Mechan[employer] Interventions [x] Prayer [] Active listening [] Non-anxious presence [] Spiritual/emotional support [] Crisis/trauma care [] Spiritual counseling [] Bereavement support [] Provided bereavement packet [] Provided Bible/devotional materials [] Provided toy/stuffed animal, coloring book to patient or family member [] Provided Communion [] Anointing/Protem [] Salvation [] Completed spiritual assessment [] Other: Impact on Illness or Injury [] Angry [] Fearful [] Anxious [] Often cries [] Exhaustion [] Unable to work [] Unable to attend quaker [] Unable to walk/stand [] Unable to read [] Unable to drive [] Unable to eat/drink [] Unable to sleep [] Unable to be with family [] Patient intubated [] Other: Summary Time spent with patient
[2024-08-01] MEDS: cefTRIAXone 1,000 mg SDV 1000 MG IVP (12:25)
--- NOTE | 2024-08-01 14:03 | P.PN_ITS ---
Subjective 2 Subjective: Patient was seen this morning he is alert oriented x 3, following all commands, has a mild left facial droop, no slurring of his words, mild word finding difficulty he reports mild left upper left lower extremity weakness that persist, unsteadiness on his feet no fevers, chills, no nausea, vomiting, he does see that his last stroke 2 years ago his functionality returned to he continued to have mild left-sided weakness after rehab, NIH stroke scale admission was 4, not a tPA candidate Vitals/I&O/Wt Last Vital Signs Temp 97.6 F 08/01/24 11:42 Pulse 79 08/01/24 11:42 Resp 18 08/01/24 11:42 BP 170/95 08/01/24 11:42 Pulse Ox 91 08/01/24 11:42 O2 Del Method Room Air 08/01/24 11:42 07/31/24 08/01/24 08/01/24 22:59 06:59 14:59 Intake Total 720 / 720 Output Total 550 / 550 400 / 950 850 / 850 Balance -550 / -550 -400 / -950 -130 / -130 Weight last 48 hrs Weight 86.319 kg Weight 86.228 kg Weight 81.647 kg Physical Exam 2 Const: COMMON NORMALS: no acute distress and patient oriented x3 Resp: COMMON NORMALS: normal respiratory effort, No retractions, No use of accessory muscles and clear to auscultation bilaterally AUSCULTATION: clear to auscultation bilaterally Cardio: COMMON NORMALS: regular rate, regular rhythm, S1 normal heart sound present and S2 normal heart sound present RATE: regular rate RHYTHM: r egular rhythm HEART SOUNDS: S1 normal heart sound present and S2 normal heart sound present GI: COMMON NORMALS: Normal to inspection, nondistended, normoactive bowel sounds present and non-tender Extremity: COMMON NORMALS: no pedal edema Neuro: COMMON NORMALS: patient oriented x3, CN's II-XII intact bilaterally and moves all extremities OTHER: Mild left facial droop, mild word finding difficulties, mild left upper left lower extremity weakness, Psych: COMMON NORMALS: mental status grossly normal Data 07/31/24 09:26 07/31/24 09:26 Micro: Microbiology 07/31/24 11:20 Urine Culture - Preliminary Urine,Clean Catch Strep species, gamma-hemolytic A&P Assessment and plan (1) CVA (cerebral vascular accident): Acute CVA with left-sided deficits -Last known well normal 10 PM 07/30/2024, unable to ambulate at 2 AM 07/31/2024 - NIH stroke scale 4 - CT head no acute findings - CT head no acute findings - Plan - Transthoracic echocardiogram - Aspirin 81 mg - Plavix 75 mg - History of the GI bleed, Protonix, Carafate - Telemetry monitoring - PT OT, speech therapy eval -Permissive hypertension - Full code - Lovenox for DVT prophylaxis Plan Urinary tract infection, continue Rocephin History of stroke (right MCA, residual left-sided weakness) : History of right MCA stroke two years ago with residual mild left-sided weakness Heart failure (EF 40-45%) : - Monitor Chronic kidney disease : - Monitor Coronary artery disease (CABG, stents) : History of coronary artery disease, status post CABG and stents. Aortic valve replacement (about 1 year ago) : Hyperlipidemia : - Crestor allergy - Monitor on atorvastatin Hypothyroidism, continue levothyroxine GERD : History of gastroesophageal reflux disease. History of GI bleed with anticoagulation : Start Protonix, Carafate BPH: Continue Flomax and finasteride Full code Lovenox for DVT prophylaxis PDMP PDMP Reviewed: Not Reviewed Attestations 2 Medical Necessity Statement*: Patient requires hospitalization for acute CVA Diagnoses CVA (cerebral vascular accident) I63.9
[2024-08-01] MEDS: enoxaparin 40 mg/0.4 mL Syringe SUBCUT (14:52)
[2024-08-01 16:00] VITALS: BP 164/98; PULSE 64; RESP 17; TEMP 36.6; O2SAT 97
[2024-08-01] MEDS: tamsulosin 0.4 mg Capsule PO (17:33)
[2024-08-01 20:00] VITALS: BP 167/87; PULSE 72; RESP 18; TEMP 36.8; O2SAT 96
[2024-08-01] MEDS: atorvastatin 40 mg Tablet PO (20:46)
[2024-08-02] VITALS: BP 120/67; PULSE 68; RESP 18; TEMP 37.1; O2SAT 98
[2024-08-02] MEDS: sucralfate 1 gm Tablet PO ×4 (03:44→20:21)
[2024-08-02 04:00] VITALS: BP 168/89; PULSE 78; RESP 17; TEMP 36.8; O2SAT 97
[2024-08-02 04:39] LABS: Basophils % 0.6 %; Eosinophils # 0.5 10^3/uL (0.0-0.8); Hematocrit 43.1 % (37-53); Lymphocytes # 0.9 10^3/uL (0.8-4.8); Lymphocytes % 13.8 %; Mean Corpuscular HGB Conc 35.3 g/dL (30-55); Mean Corpuscular Hemoglobin 33.6 pg (27-33); Mean Corpuscular Volume 95.4 fl (82-101); Mean Platelet Volume 11.2 fL (7.4-10.4); Monocytes # 0.8 10^3/uL (0.2-0.9); Monocytes % 12.1 %; Neutrophils # 4.24 10^3/uL (1.8-7.7); Neutrophils % 65.2 %; Nucleated Red Blood Cells % 0 %; Platelet Count 141 10^3/cmm (157-399); Red Blood Count 4.52 10^6/uL (3.85-5.65); Red Cell Distribution Width 12.6 % (12.1-15.1); White Blood Count 6.51 10^3/uL (3.29-11.43)
[2024-08-02 05:00] LABS: Alanine Aminotransferase 11 U/L (0-41); Albumin Level 3.5 g/dL (3.5-5.2); Alkaline Phosphatase 95 U/L (40-130); Aspartate Amino Transferase 16 U/L (0-40); Blood Urea Nitrogen 24 mg/dL (8-23); Calcium 8.8 mg/dL (8.5-10.5); Carbon Dioxide 22 mmol/L (22-29); Chloride 109 mmol/L (98-107); Creatinine Clr Calc Pharmacy 40.0884; Globulin 2.8 g/dL (1.3-4.6); Glucose 111 mg/dL (65-115); Osmolality Calculated 299 mOsm/kg (285-295); Phosphorus 2.7 mg/dL (2.5-4.5); Sodium 142 mmol/L (136-145); Total Bilirubin 0.2 mg/dL (0.15-1.2); Total Protein 6.3 g/dL (6.6-8.7)
[2024-08-02 05:02] LABS: Anion Gap 14.9 (5-19); Potassium 3.9 mmol/L (3.5-5.1)
[2024-08-02] MEDS: aspirin 81 mg Chew Tablet PO (05:25)
[2024-08-02] MEDS: levothyroxine 50 mcg Tablet PO (05:25)
[2024-08-02 09:23] VITALS: BP 174/89; PULSE 67; RESP 18; TEMP 36.7; O2SAT 97
[2024-08-02] MEDS: pantoprazole 40 mg SDV IVP ×2 (09:59→20:21)
[2024-08-02] MEDS: clopidogrel 75 mg Tablet PO (09:59)
[2024-08-02] MEDS: finasteride 5 mg Tablet PO (09:59)
[2024-08-02 12:16] VITALS: BP 173/83; PULSE 73; RESP 18; TEMP 36.4; O2SAT 95
[2024-08-02] MEDS: linezolid premix 600 MG/300 ML PREMIX 300 MG IV (14:00)
[2024-08-02] MEDS: enoxaparin 40 mg/0.4 mL Syringe SUBCUT (14:00)
[2024-08-02 17:02] VITALS: BP 147/98; PULSE 71; RESP 17; TEMP 36.5; O2SAT 99
--- NOTE | 2024-08-02 17:06 | P.PN_ITS ---
Subjective 2 Subjective: Patient was seen this morning, he is alert oriented x 3, following all commands, no significant facial droop, no slurring of his words he does have unsteadiness on his feet, very mild left upper left lower extremity weakness - Plans on discharging patient today how ever his urine came back positive for VRE UTI plan treating with IV antibiotics for 24 hours Vitals/I&O/Wt Last Vital Signs Temp 97.7 F 08/02/24 17:02 Pulse 71 08/02/24 17:02 Resp 17 08/02/24 17:02 BP 147/98 08/02/24 17:02 Pulse Ox 99 08/02/24 17:02 O2 Del Method Room Air 08/02/24 12:16 08/02/24 08/02/24 08/02/24 06:59 14:59 22:59 Intake Total 720 / 720 300 / 1020 Output Total 200 / 2250 650 / 650 Balance -200 / -1170 70 / 70 300 / 370 Weight last 48 hrs Weight 87.18 kg Weight 86.319 kg Physical Exam 2 Const: COMMON NORMALS: no acute distress and patient oriented x3 Resp: COMMON NORMALS: normal respiratory effort, No retractions, No use of accessory muscles and clear to auscultation bilaterally AUSCULTATION: clear to auscultation bilaterally Cardio: COMMON NORMALS: regular rate, regular rhythm, S1 normal heart sound present and S2 normal heart sound present RATE: regular rate RHYTHM: r egular rhythm HEART SOUNDS: S1 normal heart sound present and S2 normal heart sound present GI: COMMON NORMALS: Normal to inspection, nondistended, normoactive bowel sounds present and non-tender Extremity: COMMON NORMALS: no pedal edema Neuro: COMMON NORMALS: patient oriented x3, CN's II-XII intact bilaterally and moves all extremities OTHER: Left upper extremity strength very mild diminished compared to right, left lower extremity strength mildly diminished compared to the right Psych: COMMON NORMALS: mental status grossly normal Data 08/02/24 04:25 08/02/24 04:25 Micro: Microbiology 07/31/24 11:20 Urine Culture - Final Urine,Clean Catch Enterococcus faecalis VRE A&P Assessment and plan (1) CVA (cerebral vascular accident): Acute CVA with left-sided deficits -Last known well normal 10 PM 07/30/2024, unable to ambulate at 2 AM 07/31/2024 - NIH stroke scale 4 - CT head no acute findings - CT head no acute findings - Plan - Transthoracic echocardiogram - Aspirin 81 mg - Plavix 75 mg - History of the GI bleed, Protonix, Carafate - Telemetry monitoring - PT OT, speech therapy eval -Permissive hypertension - Full code - Lovenox for DVT prophylaxis Plan Urinary tract infection, VRE UTI, started on IV Zyvox History of stroke (right MCA, residual left-sided weakness) : History of right MCA stroke two years ago with residual mild left-sided weakness Heart failure (EF 40-45%) : - Monitor Chronic kidney disease : - Monitor Coronary artery disease (CABG, stents) : History of coronary artery disease, status post CABG and stents. Aortic valve replacement (about 1 year ago) : Hyperlipidemia : - Crestor allergy - Monitor on atorvastatin Hypothyroidism, continue levothyroxine GERD : History of gastroesophageal reflux disease. History of GI bleed with anticoagulation : Start Protonix, Carafate BPH: Continue Flomax and finasteride Full code Lovenox for DVT prophylaxis PDMP PDMP Reviewed: Not Reviewed Attestations 2 Medical Necessity Statement*: Patient requires hospitalization for VRE UTI requiring IV Zyvox, acute CVA Diagnoses CVA (cerebral vascular accident) I63.9
[2024-08-02] MEDS: tamsulosin 0.4 mg Capsule PO (18:11)
[2024-08-02 19:59] VITALS: BP 154/95; PULSE 71; RESP 17; TEMP 36.4; O2SAT 92
[2024-08-02] MEDS: atorvastatin 40 mg Tablet PO (20:21)
[2024-08-03] MEDS: linezolid premix 600 MG/300 ML PREMIX 300 MG IV (00:24)
[2024-08-03 00:57] VITALS: BP 164/94; PULSE 69; RESP 18; TEMP 37; O2SAT 96
[2024-08-03] MEDS: acetaminophen 325 mg Tablet 650 MG PO (01:09)
[2024-08-03] MEDS: sucralfate 1 gm Tablet PO ×2 (02:31→10:10)
[2024-08-03] MEDS: aspirin 81 mg Chew Tablet PO (05:03)
[2024-08-03] MEDS: levothyroxine 50 mcg Tablet PO (05:03)
[2024-08-03 05:42] VITALS: BP 154/92; PULSE 67; RESP 14; TEMP 37; O2SAT 96
[2024-08-03 06:21] LABS: Basophils % 0.7 %; Eosinophils # 0.5 10^3/uL (0.0-0.8); Eosinophils % 9.2 %; Hematocrit 42.8 % (37-53); Lymphocytes % 16.4 %; Mean Corpuscular Hemoglobin 32.8 pg (27-33); Mean Corpuscular Volume 93.4 fl (82-101); Mean Platelet Volume 10.7 fL (7.4-10.4); Monocytes # 0.7 10^3/uL (0.2-0.9); Monocytes % 11.3 %; Neutrophils # 3.62 10^3/uL (1.8-7.7); Neutrophils % 62.1 %; Nucleated Red Blood Cells % 0 %; Platelet Count 129 10^3/cmm (157-399); Red Blood Count 4.58 10^6/uL (3.85-5.65); Red Cell Distribution Width 12.5 % (12.1-15.1); White Blood Count 5.84 10^3/uL (3.29-11.43)
[2024-08-03 06:39] LABS: Alanine Aminotransferase 10 U/L (0-41); Albumin Level 3.7 g/dL (3.5-5.2); Alkaline Phosphatase 95 U/L (40-130); Anion Gap 16.1 (5-19); Aspartate Amino Transferase 14 U/L (0-40); Blood Urea Nitrogen 21 mg/dL (8-23); Carbon Dioxide 22 mmol/L (22-29); Chloride 108 mmol/L (98-107); Creatinine Clr Calc Pharmacy 40.2383; Globulin 2.9 g/dL (1.3-4.6); Glucose 89 mg/dL (65-115); Osmolality Calculated 296 mOsm/kg (285-295); Phosphorus 3.2 mg/dL (2.5-4.5); Potassium 4.1 mmol/L (3.5-5.1); Sodium 142 mmol/L (136-145); Total Bilirubin 0.4 mg/dL (0.15-1.2); Total Protein 6.6 g/dL (6.6-8.7)
[2024-08-03 07:15] VITALS: BP 163/88; PULSE 67; RESP 15; TEMP 36.4; O2SAT 98
--- NOTE | 2024-08-03 08:39 | PC.SOCIAL ---
IMM Update Pg. 2 of IMM updated. Copy provided at bedside.
[2024-08-03] MEDS: pantoprazole 40 mg SDV IVP (10:09)
[2024-08-03] MEDS: finasteride 5 mg Tablet PO (10:10)
[2024-08-03] MEDS: clopidogrel 75 mg Tablet PO (10:10)
--- NOTE | 2024-08-03 10:52 | P.DS_ITS ---
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, systolic CHF, CKD, CAD, aortic valve replacement history of chronic indwelling Cutler catheter, history of prior GI bleed with anticoagulation therapy, hyperlipidemia, GERD history of recurrent UTIs who presents to [facility] due to acute on chronic left-sided weakness For patient's acute on chronic left-sided weakness CVA (cerebral vascular accident): Acute CVA with left-sided deficits -Last known well normal 10 PM 07/30/2024, unable to ambulate at 2 AM 07/31/2024 - NIH stroke scale 4 - CT head no acute findings -CT head neck - CT/CT angio headneck* [id number] IMPRESSION: 1. RIGHT proximal ICA stenosis measures approximately 50 to 60% unchanged c to 2023. 2. No significant LEFT cervical ICA stenosis. 3. LEFT dominant vertebral artery. Smaller but patent RIGHT vertebral artery ends in PICA. Segmental stenosis in the RIGHT proximal vertebral artery. 4. Mild intracranial atheromatous disease. No proximal flow-limiting stenosis. 5. Moderate atheromatous plaque aortic arch. 6. 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 Moderately decreased left ventricular systolic function. Left ventricular ejection fraction is estimated at 40 %. Global left ventricular hypokinesis. Negative bubble study suggestive of no significant intracardiac shunt. There is no pericardial effusion. -Patient was monitored as inpatient, received permissive hypertension, aspirin, Plavix, statin - Overall patient's clinical condition improved - On discharge she has minimal left-sided weakness - Will be discharged with outpatient PT OT - Will discharge on aspirin 81 mg - Plavix 75 mg daily for 20 remaining days - Atorvastatin 40 mg daily - Due to history of GI bleed, he was monitored as inpatient, no bloody black stools, hemodynamic compromise, hemoglobin has been stable - Nonetheless we will discharge him on Protonix, Carafate Patient was found to have a VRE UTI during his hospitalization requiring IV Zyvox, discharged on p.o. Zyvox as outpatient, history of chronic indwelling Cutler catheter Physical Exam Const: COMMON NORMALS: no acute distress and patient oriented x3 Eye: COMMON NORMALS: Equal, round and reactive pupils present PUPIL: Yes Equal, round and reactive pupils present Resp: COMMON NORMALS: normal respiratory effort, No retractions, No use of accessory muscles and clear to auscultation bilaterally AUSCULTATION: clear to auscultation bilaterally Cardio: COMMON NORMALS: regular rate, regular rhythm, S1 normal heart sound present and S2 normal heart sound present RATE: regular rate RHYTHM: regular rhythm HEART SOUNDS: S1 normal heart sound present and S2 normal heart sound present GI: COMMON NORMALS: Normal to inspection, nondistended, normoactive bowel sounds present and non-tender Extremity: COMMON NORMALS: no pedal edema Neuro: COMMON NORMALS: patient oriented x3, CN's II-XII intact bilaterally and moves all extremities OTHER: Minimal left upper extremity weakness compared to the right Left lower extremity weakness compared to the right He is unsteady on his feet, positive cerebellar signs on the left No facial droop, no slurring of his words, no visual deficits Discussed with patient to ambulate with care Psych: COMMON NORMALS: mental status grossly normal Discharge Data Studies Completed and Pending Completed Studies During Hospitalization Category Date Time Status CT head thrombolytic [id number] Stat Cat Scan 07/31/24 09:20 Completed CTA head neck [CT angio headneck* [id number]] Stat Cat Scan 07/31/24 10:03 Completed CV. echo lmt wo/w bubble [id number] Stat Ultrasound 07/31/24 13:23 Completed Pending at discharge Category Date Time Status Complete Blood Count w/Auto AM LABS Lab 08/04/24 04:00 Ordered Comprehensive Metabolic Panel AM LABS Lab 08/04/24 04:00 Ordered Magnesium AM LABS Lab 08/04/24 04:00 Ordered Phosphorus AM LABS Lab 08/04/24 04:00 Ordered Radiology Impressions Head CT 07/31/24 09:20 IMPRESSION: 1. No evidence of intracranial hemorrhage or mass effect. 2. No acute intracranial findings. Notified Nayana Aguilar MD at 07/31/2024 9:45 AM. Head/Neck CTA 07/31/24 10:03 IMPRESSION: 1. RIGHT proximal ICA stenosis measures approximately 50 to 60% unchanged compared to 2023. 2. No significant LEFT cervical ICA stenosis. 3. LEFT dominant vertebral artery. Smaller but patent RIGHT vertebral artery ends in PICA. Segmental stenosis in the RIGHT proximal vertebral artery. 4. Mild intracranial atheromatous disease. No proximal flow-limiting stenosis. 5. Moderate atheromatous plaque aortic arch. 6. 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 Laboratory Results WBC 5.84 10^3/uL (3.29-11.43) 08/03/24 06:00 RBC 4.58 10^6/uL (3.85-5.65) 08/03/24 06:00 Hgb 15.00 g/dL (11.27-16.99) 08/03/24 06:00 Hct 42.8 % (37-53) 08/03/24 06:00 MCV 93.4 fl (82-101) 08/03/24 06:00 MCH 32.8 pg (27-33) 08/03/24 06:00 MCHC 35.0 g/dL (30-55) 08/03/24 06:00 RDW 12.5 % (12.1-15.1) 08/03/24 06:00 Plt Count 129 10^3/cmm (157-399) L 08/03/24 06:00 MPV 10.7 fL (7.4-10.4) H 08/03/24 06:00 Neut % (Auto) 62.1 % 08/03/24 06:00 Lymph % (Auto) 16.4 % 08/03/24 06:00 Hanson % (Auto) 11.3 % 08/03/24 06:00 Eos % (Auto) 9.2 % 08/03/24 06:00 Baso % (Auto) 0.7 % 08/03/24 06:00 Neut # (Auto) 3.62 10^3/uL (1.8-7.7) 08/03/24 06:00 Lymph # (Auto) 1.0 10^3/uL (0.8-4.8) 08/03/24 06:00 Hanson # (Auto) 0.7 10^3/uL (0.2-0.9) 08/03/24 06:00 Eos # (Auto) 0.5 10^3/uL (0.0-0.8) 08/03/24 06:00 Baso # (Auto) 0.0 10^3/uL (0.0-0.1) 08/03/24 06:00 Nucleated RBC % (auto) 0 % 08/03/24 06:00 Nucleated RBCs # 0.0 /100WBC 08/03/24 06:00 PT 13.90 SECONDS (12.1-14.9) 07/31/24 09: INR 1.00 (0.8-1.2) 07/31/24 09: APTT 30.8 SECONDS (23.9-36.7) 07/31/24 09:26 Sodium 142 mmol/L (136-145) 08/03/24 06:00 Potassium 4.1 mmol/L (3.5-5.1) 08/03/24 06:00 Chloride 108 mmol/L (98-107) H 08/03/24 06:00 Carbon Dioxide 22 mmol/L (22-29) 08/03/24 06:00 Anion Gap 16.1 (5-19) 08/03/24 06:00 BUN 21 mg/dL (8-23) 08/03/24 06:00 Creatinine 1.6 mg/dL (0.7-1.2) H 08/03/24 06:00 GFR Calculation Not Reportable 08/03/24 06:00 Glucose 89 mg/dL (65-115) 08/03/24 06:00 POC Glucose 126 mg/dL (70-110) H 07/31/24 09:24 Estimat Average Glucose 103 08/01/24 02:32 Hemoglobin A1c 5.2 % (4.0-6.0) 08/01/24 02:32 Calculated Osmolality 296 mOsm/kg (285-295) H 08/03/24 06:00 Calcium 9.0 mg/dL (8.5-10.5) 08/03/24 06:00 Phosphorus 3.2 mg/dL (2.5-4.5) 08/03/24 06:00 Magnesium 2.0 mg/dL (1.7-2.3) 08/03/24 06:00 Total Bilirubin 0.4 mg/dL (0.15-1.2) 08/03/24 06:00 AST 14 U/L (0-40) 08/03/24 06:00 ALT 10 U/L (0-41) 08/03/24 06:00 Alkaline Phosphatase 95 U/L (40-130) 08/03/24 06:00 Total Protein 6.6 g/dL (6.6-8.7) 08/03/24 06:00 Albumin 3.7 g/dL (3.5-5.2) 08/03/24 06:00 Globulin 2.9 g/dL (1.3-4.6) 08/03/24 06:00 Triglycerides 73 mg/dL (0-150) 08/01/24 02:32 Cholesterol 152 mg/dL (0-200) 08/01/24 02:32 LDL Cholesterol, Calc 96 mg/dL (50-129) 08/01/24 02:32 HDL Cholesterol 41 mg/dL (60-100) L 08/01/24 02:32 LDL/HDL Ratio 2.34 RATIO (0.00-3.22) 08/01/24 02:32 Cholesterol/HDL Ratio 3.71 mg/dL (1.0-5.00) 08/01/24 02:32 TSH 3.89 uIU/mL (0.27-4.20) 07/31/24 09:26 Urine Color Yellow (Yellow) 07/31/24 11:20 Urine Appearance Clear (CLEAR) 07/31/24 11:20 Urine pH 5.5 (5-7) 07/31/24 11:20 Ur Specific Dewar 1.026 (1.005-1.030) 07/31/24 11:20 Urine Protein Trace (Negative) A 07/31/24 11:20 Urine Glucose (UA) Negative (Normal) 07/31/24 11:20 Urine Ketones Negative (Negative) 07/31/24 11:20 Urine Blood 1+ (Negative) A 07/31/24 11:20 Urine Nitrate Negative (Negative) 07/31/24 11:20 Urine Bilirubin Negative (Negative) 07/31/24 11:20 Urine Urobilinogen 1.0 mg/dL (Negative) 07/31/24 11:20 Ur Leukocyte Esterase 2+ (Negative) A 07/31/24 11:20 Urine RBC 3-5 /hpf (0-2) 07/31/24 11:20 Urine WBC 51-100 /hpf (0-5) H 07/31/24 11:20 Ur Squamous Epith Cells 0-5 /hpf (0-5) 07/31/24 11:20 Amorphous Sediment Not Reportable 07/31/24 11:20 Urine Bacteria None seen /hpf (NONE) 07/31/24 11:20 Hyaline Casts 0.81 /lpf 07/31/24 11:20 Urine Opiates Screen Negative ng/mL (Negative) 07/31/24 11:20 Ur Barbiturates Screen Negative ng/mL (Negative) 07/31/24 11:20 Ur Phencyclidine Scrn Negative ng/mL (Negative) 07/31/24 11:20 Ur Amphetamines Screen Negative ng/mL (Negative) 07/31/24 11:20 U Benzodiazepines Scrn Negative ng/mL (Negative) 07/31/24 11:20 Urine Cocaine Screen Negative ng/mL (Negative) 07/31/24 11:20 U Marijuana (THC) Screen Negative ng/mL (Negative) 07/31/24 11:20 Vitals Last Vital Signs Temp 97.6 F 08/03/24 07:15 Pulse 67 08/03/24 07:15 Resp 15 08/03/24 07:15 BP 163/88 08/03/24 07:15 Pulse Ox 98 08/03/24 07:15 O2 Del Method Room Air 08/03/24 07:15 Discharge Plan Discharge Patient Disposition: Home Condition: Stable Prescriptions: New atorvastatin 40 mg Tablet 40 mg PO BEDTIME 30 Days Qty: 30 0RF sucralfate 1 gram Tablet 1 g PO BID 30 Days Qty: 60 0RF clopidogrel 75 mg Tablet 75 mg PO DAILY 19 Days Qty: 19 0RF pantoprazole [Protonix] 40 mg tablet,delayed release (DR/EC) 40 mg PO BID 30 Days Qty: 60 0RF linezolid [Zyvox] 600 mg tablet 600 mg PO BID 6 Days Qty: 12 0RF Continued Synthroid 50 mcg tablet 50 mcg PO QAM Qty: 90 3RF furosemide 20 mg tablet 20 mg PO .MON/WED/FRI/SUN Qty: 90 3RF amlodipine 5 mg tablet 5 mg PO QAM Qty: 90 3RF docusate sodium 50 mg Capsule 50 mg PO DAILY aspirin 81 mg Tablet,Chewable 81 mg PO QAM Qty: 90 3RF isosorbide mononitrate 30 mg tablet extended release 24 hr 15 mg PO DAILY Qty: 90 3RF finasteride 5 mg tablet 5 mg PO DAILY Men's Daily Formula 400-20-300 mcg Tablet 1 tab PO QAM tamsulosin 0.4 mg capsule 0.4 mg PO QPM Discharge Orders: Discharge Order (Routine); Ordered 08/03/24 Ordered By: Elio Marte Other Ambulatory Orders: Physical Therapy Eval and Treat Outpatient (Order) Timeframe: 1 Day Facility: [facility] - Location: Physical Therapy Ordered By: Elio Marte Referrals: Caroline Lux MD [Physician, Neurology] - 2 weeks Referral Note: We have notified your physician's clinic of the need for a fo llow-up appointment to be scheduled. If you have not heard from them within the next 2 business days, please call them directly. Aicha Moran MD [Primary Care Provider, Family Practice] - 7-10 days Referral Note: We have notified your physician's clinic of the need for a follow-up appointment to be scheduled. If you have not heard from them within the next 2 business days, please call them directly. Discharge Diet: Cardiac Discharge Activity: Resume usual activity Patient Instructions: Sucralfate (By mouth), Atorvastatin (By mouth), Clopi dogrel (By mouth), Pantoprazole (By mouth), Linezolid (By mouth), Urinary Tract Infection in Men (DC), Opioid Safety, Stroke Stoplight, VRE Activity Restrictions/Additional Instructions: -if any stroke like symptoms call 911 -please follow up with urology - You have a VRE UTI, sensitive to Zyvox, please follow-up with your urologist Discharge Attestations Time Spent in Discharge Care*: greater than 30 min Status at Discharge: Cognitive status at discharge: cognitively intact , Behavioral status at discharge: cooperative , Quality Metrics Clinical Quality Measures [ Cerebrovascular Accident { Contraindication to Antithrombotic: None; antithrombotic prescribed; Contraindication to Anticoagulation: Overlap treatment not indicated; Contraindication to Statin: None; Statin prescribed;}] Coding Level of Care Code 70568 Total time (in minutes) for Discharge: 45 Diagnoses CVA (cerebral vascular accident) I63.9
--- NOTE | 2024-08-03 11:26 | PC.NURSE ---
Medications called into [facility] for patient d/t Jose David being closed for [facility] Holiday.
[2024-08-03 11:30] VITALS: BP 157/88; PULSE 69; RESP 16; TEMP 36.8; O2SAT 94
[2024-08-03 12:32] VITALS: BP 157/88; PULSE 69; RESP 16; TEMP 36.8; O2SAT 94
== END 2024-08-03 12:37 | disposition home or self-care (01) | DRG 65 ==
LOC: ER 10:24 → MEDSURG 15:07
PROVIDERS: Admitting Provider Internal Medicine; Emergency Provider Emergency Medicine; PCP Family Medicine; Visit Provider Family Medicine
DX: I63.81 Other cerebral infarction due to occlusion or stenosis of small artery (principal); G81.94 Hemiplegia, unspecified affecting left nondominant side; I13.0 Hypertensive heart and chronic kidney disease with heart failure and stage 1 through stage 4 chronic kidney disease, or unspecified chronic kidney disease; I50.20 Unspecified systolic (congestive) heart failure; N39.0 Urinary tract infection, site not specified; R29.810 Facial weakness; R29.704 NIHSS score 4; N18.9 Chronic kidney disease, unspecified; I25.10 Atherosclerotic heart disease of native coronary artery without angina pectoris; N40.0 Benign prostatic hyperplasia without lower urinary tract symptoms; E03.9 Hypothyroidism, unspecified; F06.31 Mood disorder due to known physiological condition with depressive features; Z87.440 Personal history of urinary (tract) infections; Z95.2 Presence of prosthetic heart valve; Z95.5 Presence of coronary angioplasty implant and graft; Z95.1 Presence of aortocoronary bypass graft; Z79.82 Long term (current) use of aspirin
CPT/HCPCS: 36415; 36416; 70450; 70496; 70498; 80053; 80061; 80306; 81001; 82962; 83036; 83735; 84100; 84443; 85025; 85610; 85730; 87077; 87086; 87186; 92523; 92610; 93005; 96372; 97110; 97116; 97161; 97166; 97530; 97535; 99285; C8924; G0378; J0696; J1650; J2020; J2470; J9999

== ENCOUNTER 2024-08-14 15:26 | Inpatient (IN) | payer MEDICARE, SELFPAY ==
[2024-08-14] VITALS (9 sets, daily range): BP systolic 98–170; BP diastolic 63–98; PULSE 66–86; RESP 16–17; TEMP 36.6–36.8; O2SAT 93–97; BMI 23.7; BMI 23.5
--- NOTE | 2024-08-14 15:54 | CTR_ITS ---
PROCEDURE INFORMATION: Exam: CT Head Without Contrast Exam date and time: 08/14/2024 4:14 PM Age: 83 years old Clinical indication: Stroke-like symptoms; Other: Left side weakness; Additional info: Symptoms of acute stroke TECHNIQUE: Imaging protocol: Computed tomography of the head without contrast. Radiation optimization: All CT scans at this facility use at least one of these dose optimization techniques: automated exposure control; mA and/or kV adjustment per patient size (includes targeted exams where dose is matched to clinical indication); or iterative reconstruction. Other technique: STROKE PROTOCOL was implemented. COMPARISON: CT angio headneck* [id number] 07/31/2024 10:17 AM RADIATION DOSE METRICS: Total DLP (mGy-cm): 1123.68 FINDINGS: Brain: Prominent diffuse cerebral atrophy is noted. There is prominent chronic periventricular white matter ischemic change. There is no evidence of mass effect, hemorrhage or infarct. Cerebral ventricles: No ventriculomegaly. No midline shift. Paranasal sinuses: Visualized sinuses are unremarkable. No fluid levels. Mastoid air cells: Visualized mastoid air cells are well aerated. Bones: Unremarkable. No acute fracture. Soft tissues: Unremarkable. CT/CT head thrombolytic [id number] IMPRESSION: 1. No acute findings noted 2. Cerebral atrophy with chronic ischemic changes noted ASSESSMENT: ASPECTS ([place] Stroke Program Early CT Score) is 10.
--- NOTE | 2024-08-14 15:54 | ECG_ITS ---
[facility]: 2024-08-14 Pat Name: Eliza Grimm Department: Room: Gender: Male Silo Man: : 1940 Requested By: Saul Hercules Order Number: [id number] Laurie MD: CIRO GARRIDO Measurements Intervals [place] Rate: 76 P: 28 AR: 152 QRS: -84 QRSD: 161 T: 144 QT: 439 QTc: 497 Interpretive Statements ELECTRONIC VENTRICULAR PACEMAKER ABNORMAL RHYTHM ECG Compared to ECG 07/31/2024 10:50:13 No significant changes Electronically Signed On 08-15-2024 23:49:30 CDT by CIRO GARRIDO [email or web address]
--- NOTE | 2024-08-14 15:58 | CTR_ITS ---
PROCEDURE INFORMATION: Exam: CTA Head With Contrast, Arteriography Exam date and time: 08/14/2024 4:22 PM Age: 83 years old Clinical indication: Weakness; Prior surgery; Surgery date: 6+ months; Surgery type: Pacer and heart; Additional info: CVA, left leg weakness TECHNIQUE: Imaging protocol: Computed tomographic angiography of the head with contrast. Exam focused on the arteries. 3D rendering (Not supervised by radiologist): MIP and/or 3D reconstructed images were created by the technologist. Radiation optimization: All CT scans at this facility use at least one of these dose optimization techniques: automated exposure control; mA and/or kV adjustment per patient size (includes targeted exams where dose is matched to clinical indication); or iterative reconstruction. Contrast material: OMNI 350; Contrast volume: 100 ml; Contrast route: INTRAVENOUS (IV); COMPARISON: CT angio headneck* [id number] 07/31/2024 10:17 AM RADIATION DOSE METRICS: Total DLP (mGy-cm): 526.4 FINDINGS: ANTERIOR CIRCULATION: Right internal carotid artery: Intracranial segment is patent with no significant stenosis. No aneurysm. Right middle cerebral artery: There is a focal moderate stenosis involving the distal aspect of the right M1 segment. Right anterior cerebral artery: The right anterior cerebral artery is chronically stenotic and quite small. Left internal carotid artery: Intracranial segment is patent with no significant stenosis. No aneurysm. Left middle cerebral artery: A 2 mm left M1 aneurysm is again noted. The aneurysm projects inferiorly. Left anterior cerebral artery: No occlusion or significant stenosis. No aneurysm. POSTERIOR CIRCULATION: Right vertebral artery: No occlusion or significant stenosis. No aneurysm. Left vertebral artery: No occlusion or significant stenosis. No aneurysm. Basilar artery: No occlusion or significant stenosis. No aneurysm. Right posterior cerebral artery: No occlusion or significant stenosis. No aneurysm. Left posterior cerebral artery: No occlusion or significant stenosis. No aneurysm. Brain: No definite mass, mass effect, or midline shift. Cerebral ventricles: No ventriculomegaly. Bones/joints: Unremarkable. No acute fracture. Soft tissues: Unremarkable. PROCEDURE INFORMATION: Exam: CTA Neck With Contrast Exam date and time: 08/14/2024 4:22 PM Age: 83 years old Clinical indication: Weakness; Prior surgery; Surgery date: 6+ months; Surgery type: Pacer and heart; Additional info: CVA, left leg weakness TECHNIQUE: Imaging protocol: Computed tomographic angiography of the neck with contrast. Exam focused on the cervical segments of the vasculature. 3D rendering (Not supervised by radiologist): MIP and/or 3D reconstructed images were created by the technologist. Radiation optimization: All CT scans at this facility use at least one of these dose optimization techniques: automated exposure control; mA and/or kV adjustment per patient size (includes targeted exams where dose is matched to clinical indication); or iterative reconstruction. Contrast material: OMNI 350; Contrast volume: 100 ml; Contrast route: INTRAVENOUS (IV); COMPARISON: CT angio headne* [id number] 07/31/2024 10:17 AM RADIATION DOSE METRICS: Total DLP (mGy-cm): 526.4 FINDINGS: Right common carotid artery: No stenosis. No dissection or occlusion. Right internal carotid artery: There is prominent soft plaque involving the proximal aspect of the right internal carotid artery causing 60% stenosis. Right external carotid artery: No occlusion or stenosis of the origin. Left common carotid artery: No stenosis. No dissection or occlusion. Left internal carotid artery: No stenosis of the extracranial segment. No dissection or occlusion. Left external carotid artery: No occlusion or stenosis of the origin. Right vertebral artery: No stenosis. No dissection or occlusion. Left vertebral artery: The left vertebral artery is larger than the right. Soft tissues: Normal. No significant soft tissue swelling. Bones/joints: No acute fracture. CT[facility] [id number] IMPRESSION: 1. No acute change noted 2. 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 Chronically stenotic right CRUZ IMPRESSION: Stable 60% right ICA stenosis REFERENCES: NASCET CRITERIA. The degree of stenosis in the cervical segment of the internal carotid artery is based on NASCET criteria. Normal is no stenosis. Mild is less than 50% stenosis. Moderate is 50-69% stenosis. Severe is 70% to 99% stenosis. Total occlusion is no detectable patent lumen.
--- NOTE | 2024-08-14 16:21 | PM.CONSULT ---
Providers/Reason For Consult Consulting Physician/Specialty*: Usamn Kerr MD neurology and epilepsy Reason for Consult*: Recurrent left-sided weakness in patient with a history of recent right hemispheric stroke approximately 2 weeks prior to this admission Primary Care Provider: Aicha Moran MD History of Present Illness History of Present Illness Eliza Grimm is a 83 year old male with a history of recent right MCA distribution stroke with left-sided weakness on 07/31/2024. Patient evaluated by Dr. Lux NIH stroke score =4, congestive heart failure, chronic renal disease, aortic valve replacement, and GI bleed on anticoagulation for pulmonary embolus in the past. The patient was at home and around 2:30 PM on 08/14/2024 patient was reported to have increasing left-sided weakness involving his face arm and leg. As a result the patient was brought to [facility] emergency department. NIH stroke score = 5 (secondary to mild left lower facial weakness =1, left leg weakness =2, decreased sensation left side of face in a V1 through V3 distribution =1, extinction on double sensory stimulation in the left leg=1) Point of contact glucose Accu-Chek not available for review Noncontrast head CT 08/14/2024 Cerebral atrophy with chronic ischemic changes noted Drug allergies: Crestor which made the patient feel looney Nitroglycerin which made the patient feel wild Amitriptyline which made the patient feel lonely with difficulty thinking Xarelto which resulted in GI bleed with black stools Current medications: Plavix 75 mg p.o. daily Aspirin 81 mg p.o. every morning Lipitor 40 mg p.o. nightly Colace 50 mg p.o. daily Finasteride 5 mg p.o. daily Lasix 20 mg p.o. Saturday, Saturday, Saturday, and Saturday Isosorbide mononitrate 15 mg p.o. daily Synthroid 50 mcg p.o. daily Multivitamin 1 p.o. daily Zoloft 25 mg p.o. daily Flomax 0.4 mg p.o. daily Past medical history: Right MCA distribution stroke 07/31/2024 GI bleed on Xarelto Pulmonary embolus treated with Xarelto with GI bleed Aortic valve replacement Congestive heart failure Hypothyroidism Benign positional vertigo Coronary artery bypass graft Seborrheic keratosis Hypertension Remote lacunar infarct right subthalamic region Ventricular arrhythmia Obstructive sleep apnea Dyslipidemia Chronic kidney disease Gastroesophageal reflux disease Thoracic aortic aneurysm Habits: None Family history: Remarkable for mother who experienced a stroke Review of Systems General: Reports: 10 or more systems reviewed and unremarkable except in HPI and below Medications/Allergies Home Medications ?Medication ?Instructions ?Recorded ?Confirmed ?Last Taken ?Type aspirin 81 mg chewable tablet 81 mg PO QAM #90 tabs 12/25/21 08/11/24 07/31/24 Rx levothyroxine 50 mcg tablet 50 mcg PO QAM #90 tabs 04/24/23 08/11/24 07/31/24 Rx (Synthroid) isosorbide mononitrate 30 mg 15 mg (1/2 x 30 mg) PO DAILY #90 06/24/23 08/11/24 07/31/24 Rx tablet,extended release 24 hr tabs furosemide 20 mg tablet 20 mg PO .MON/SAT/SAT/SAT #90 tabs 09/27/23 08/11/24 04/22/24 Rx finasteride 5 mg tablet 5 mg PO DAILY 01/16/24 08/11/24 07/31/24 History wujgcgth-yplrqjal-olvkf acid 400 1 tab PO QAM 01/24/24 08/11/24 07/31/24 History mcg-vit K 20 mcg-lycop 300 mcg tablet (Men's Daily Formula) tamsulosin 0.4 mg capsule 0.4 mg PO QPM 01/24/24 08/11/24 07/30/24 20:00 History amlodipine 5 mg tablet 5 mg PO QAM #90 tabs 02/27/24 08/11/24 07/31/24 Rx docusate sodium 50 mg capsule 50 mg PO DAILY 07/31/24 08/11/24 07/31/24 History atorvastatin 40 mg tablet 40 mg PO BEDTIME 30 days #30 tabs 08/02/24 08/11/24 Unknown Rx clopidogrel 75 mg tablet 75 mg PO DAILY 19 days #19 tabs 08/02/24 08/11/24 Unknown Rx sertraline 25 mg tablet (Zoloft) 25 mg PO DAILY improve mood #30 08/11/24 08/11/24 Unknown Rx tabs Allergies Allergy/AdvReac Type Severity Reaction Status Date / Time rosuvastatin (From Crestor) Allergy Mild Makes me Verified 08/11/24 09:52 looney nitroglycerin Allergy Unknown Makes me Verified 08/11/24 09:52 wild amitriptyline AdvReac Made me Verified 08/11/24 09:52 weak and daria, wasn't thinking right rivaroxaban (From Xarelto) AdvReac black stool Verified 08/11/24 09:52 PFSH Acute PFSH: Medical History VRE (vancomycin-resistant Enterococci) Pseudomonas urinary tract infection 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 Seborrheic keratoses Stroke Dizziness and giddiness Fatigue Dyslipidemia Diverticulosis Hiatal hernia History of pulmonary embolism History of Sindy-Kirk syndrome Chronic kidney disease Insomnia GERD (gastroesophageal reflux disease) Systolic congestive heart failure Thoracic aortic aneurysm CAD (coronary artery disease) Surgical History Status post transcatheter aortic valve replacement (TAVR) using bioprosthesis aortic stenosis History of drainage of abscess Percutaneous, right lower quadrant suspected appendiceal abscess History of cataract surgery Bilateral History of coronary artery stent placement Reports a total of 3 stents after her last CABG done in [facility] Dr. Rogers [facility] 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 History of cholecystectomy Family History Mother Diabetes Stroke Father Gallbladder disease Brother Chronic kidney disease (CKD) Diabetes Denies family history of CAD (coronary artery disease) Clotting disorder Dementia Suicide Anesthesia complication Bleeding disorder Lung disease Cancer Social History Smoking and tobacco/nicotine status: never used tobacco/nicotine Alcohol intake: never Substance/Drug Use: never Caregiver/support person: Yes Household members: spouse Vitals/I&O/Wt Last Vital Signs Temp 98.0 F 08/14/24 15:30 Pulse 75 08/14/24 15:46 Resp 16 08/14/24 15:30 BP 107/63 08/14/24 15:46 Pulse Ox 97 08/14/24 15:46 O2 Del Method Room Air 08/14/24 15:46 08/14/24 08/14/24 08/14/24 06:59 14:59 22:59 Intake Total 0 / 0 Balance 0 / 0 Weight last 48 hrs Weight 180 lb Physical Exam Narrative: NIH stroke score = 5 (secondary to mild left lower facial weakness =1, left leg weakness =2, decreased sensation left side of face in a V1 through V3 distribution =1, extinction on double sensory stimulation in the left leg=1) Point of contact glucose Accu-Chek not available for review Noncontrast head CT 08/14/2024 Cerebral atrophy with chronic ischemic changes noted The patient is alert and oriented x 3. Speech fluent. Head normocephalic. Neck supple. Cranial nerves II through XII reveal decreased sensation to touch over the left face in a V1 through V3 distribution. Pupils 3 mm round reactive to light and accommodation. Extraocular movements intact. Visual bustos appear to be full via confrontation. Motor testing 3/5 strength left leg. Other motor testing 5/5 bilaterally. Deep tendon reflexes grossly symmetrical throat clear lungs clear. heart history of ventricular arrhythmia and aortic valve replacement. Extremities revealed extinction on double sensory stimulation involving the left leg. Data 08/14/24 16:09 08/14/24 16:09 A&P Assessment and plan (1) Acute right MCA stroke: Impression: 1. Recurrent acute right MCA distribution stroke manifested as left facial numbness in a V1-V3 distribution, left leg weakness, extinction on double sensory stimulation involving the left leg and left lower facial weakness) NIH stroke score =5 in a patient with recent right MCA distribution stroke 07/31/2024. Therefore, patient not a candidate for intravenous thrombolytics and no intravenous thrombolytics were administered. Note: Patient reported history of GI bleed on Xarelto in the past 2. Aortic valve replacement 3. Thoracic aortic aneurysm 4. Congestive heart failure 5. History of recent right MCA distribution stroke 07/31/2024, no thrombolytics were administered 6. Chronic renal failure 7. Reports of carotid stenosis on CT angiogram 07/31/2024 RIGHT proximal ICA stenosis measures approximately 50 to 60% unchanged compared to 2023.No significant LEFT cervical ICA stenosis. LEFT dominant vertebral artery. Smaller but patent RIGHT vertebral artery ends in PICA. Segmental stenosis in the RIGHT proximal vertebral artery. Mild intracranial atheromatous disease. No proximal flow-limiting stenosis Moderate atheromatous plaque aortic arch. 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 Plan: 1. Agree with obtaining CT angiogram of the head and neck to assess for large vessel occlusion to determine if patient is a candidate for thrombectomy if large vessel occlusion is observed. Note: In view of the patient's history of recent right MCA distribution stroke 07/31/2024 as well as history of GI bleed on Xarelto, patient is not a candidate for intravenous thrombolytics and no intravenous thrombolytics were administered 2. Continue Plavix and aspirin and Lipitor per NIH stroke protocol 3. Neurochecks and vital signs per NIH stroke protocol 4. Stroke pamphlet for patient and family with stroke education 5. Occupational Therapy, physical therapy and speech therapy consult 6. Fall precautions 7. Follow-up results of serum glucose 8. Agree with hospital admission for acute stroke involving the right MCA distribution, on clinical examination PDMP PDMP Reviewed: Not Reviewed Consult Attestations Medical Necessity Statement: The patient was evaluated by neurology for worsening left-sided weakness after experiencing a right hemispheric stroke 07/31/2024 Coding Level of Care Code 08444 Diagnoses Acute right MCA stroke I63.511
[2024-08-14] MEDS: iohexol 350 mg/mL 500 mL Btl (per mL) IV (16:25)
[2024-08-14 16:27] LABS: Basophils % 0.6 %; Eosinophils # 0.5 10^3/uL (0.0-0.8); Eosinophils % 6.6 %; Hematocrit 38.8 % (37-53); Lymphocytes % 14.9 %; Mean Corpuscular HGB Conc 35.1 g/dL (30-55); Mean Corpuscular Hemoglobin 33.3 pg (27-33); Mean Corpuscular Volume 95.1 fl (82-101); Mean Platelet Volume 10.1 fL (7.4-10.4); Monocytes # 0.7 10^3/uL (0.2-0.9); Monocytes % 10.5 %; Neutrophils # 4.57 10^3/uL (1.8-7.7); Neutrophils % 67.3 %; Nucleated Red Blood Cells % 0 %; Platelet Count 121 10^3/cmm (157-399); Red Blood Count 4.08 10^6/uL (3.85-5.65); Red Cell Distribution Width 12.4 % (12.1-15.1); White Blood Count 6.79 10^3/uL (3.29-11.43)
[2024-08-14 16:42] LABS: INR 1.08 (0.8-1.2)
[2024-08-14 16:44] LABS: Alanine Aminotransferase 20 U/L (0-41); Albumin Level 3.6 g/dL (3.5-5.2); Alkaline Phosphatase 82 U/L (40-130); Aspartate Amino Transferase 19 U/L (0-40); Blood Urea Nitrogen 34 mg/dL (8-23); Calcium 8.6 mg/dL (8.5-10.5); Carbon Dioxide 21 mmol/L (22-29); Chloride 112 mmol/L (98-107); Creatinine Clr Calc Pharmacy 34.8266; Globulin 2.6 g/dL (1.3-4.6); Glucose 121 mg/dL (65-115); Osmolality Calculated 307 mOsm/kg (285-295); Sodium 144 mmol/L (136-145); Total Bilirubin 0.4 mg/dL (0.15-1.2); Total Protein 6.2 g/dL (6.6-8.7)
[2024-08-14 16:46] LABS: Anion Gap 15.1 (5-19); Potassium 4.1 mmol/L (3.5-5.1)
[2024-08-14] MEDS: sodium chloride 0.9% 1,000 ML 999 ML IV (17:19)
--- NOTE | 2024-08-14 17:26 | W.ED.NEUROSD ---
HPI - Neuro Symptoms/Deficit General: Chief Complaint: Neuro Symptoms/Deficit Stated Complaint: stroke like symptoms Time Seen by Provider: 08/14/24 15:40 History of Present Illness: 83-year-old male presents with acute onset of left-sided weakness and facial droop. Patient was last known well around 13:30 today when family member saw him at his normal baseline. At some point after this, he developed worsening left leg weakness, left arm weakness with associated pain, and facial droop. Family member was alerted when patient's mother called reporting concern for stroke symptoms. Patient has significant history of two prior strokes - one two weeks ago and another two years ago. The recent stroke two weeks ago presented with similar left-sided symptoms including leg weakness, arm weakness, and facial droop. At that time, he was not a candidate for tPA as he woke up with symptoms. He has been receiving therapy since then with some improvement but had residual deficits, requiring use of a walker or cane for ambulation. Related Data Home Medications ?Medication ?Instructions ?Recorded ?Confirmed finasteride 5 mg tablet 5 mg PO DAILY 01/16/24 08/11/24 cvzoyalk-hzakvubo-srtzg acid 400 1 tab PO QAM 01/24/24 08/11/24 mcg-vit K 20 mcg-lycop 300 mcg tablet (Men's Daily Formula) tamsulosin 0.4 mg capsule 0.4 mg PO QPM 01/24/24 08/11/24 docusate sodium 50 mg capsule 50 mg PO DAILY 07/31/24 08/11/24 Previous Rx's ?Medication ?Instructions ?Recorded aspirin 81 mg chewable tablet 81 mg PO QAM #90 tabs 12/25/21 levothyroxine 50 mcg tablet 50 mcg PO QAM #90 tabs 04/24/23 (Synthroid) isosorbide mononitrate 30 mg 15 mg (1/2 x 30 mg) PO DAILY #90 06/24/23 tablet,extended release 24 hr tabs furosemide 20 mg tablet 20 mg PO .SAT/SAT/SAT/SUN #90 tabs 09/27/23 amlodipine 5 mg tablet 5 mg PO QAM #90 tabs 02/27/24 atorvastatin 40 mg tablet 40 mg PO BEDTIME 30 days #30 tabs 08/02/24 clopidogrel 75 mg tablet 75 mg PO DAILY 19 days #19 tabs 08/02/24 sertraline 25 mg tablet (Zoloft) 25 mg PO DAILY improve mood #30 08/11/24 tabs Allergies Allergy/AdvReac Type Severity Reaction Status Date / Time rosuvastatin (From Crestor) Allergy Mild Makes me Verified 08/11/24 09:52 daria nitroglycerin Allergy Unknown Makes me Verified 08/11/24 09:52 wild amitriptyline AdvReac Made me Verified 08/11/24 09:52 weak and daria, wasn't thinking right rivaroxaban (From Xarelto) AdvReac black stool Verified 08/11/24 09:52 PFS ED PFS: Medical History VRE (vancomycin-resistant Enterococci) Pseudomonas urinary tract infection 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 Seborrheic keratoses Stroke Dizziness and giddiness Fatigue Dyslipidemia Diverticulosis Hiatal hernia History of pulmonary embolism History of Sindy-Kirk syndrome Chronic kidney disease Insomnia GERD (gastroesophageal reflux disease) Systolic congestive heart failure Thoracic aortic aneurysm CAD (coronary artery disease) Surgical History Status post transcatheter aortic valve replacement (TAVR) using bioprosthesis aortic stenosis History of drainage of abscess Percutaneous, right lower quadrant suspected appendiceal abscess History of cataract surgery Bilateral History of coronary artery stent placement Reports a total of 3 stents after her last CABG done in [facility] Dr. Rogers [facility] 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 History of cholecystectomy Family History Mother Diabetes Stroke Father Gallbladder disease Brother Chronic kidney disease (CKD) Diabetes Denies family history of CAD (coronary artery disease) Clotting disorder Dementia Suicide Anesthesia complication Bleeding disorder Lung disease Cancer Social History Smoking and tobacco/nicotine status: never used tobacco/nicotine Alcohol intake: never Substance/Drug Use: never Caregiver/support person: Yes Household members: spouse Course Vital Signs: Vital signs: Vital Signs Temperature 98.0 F 08/14/24 15:30 Pulse Rate 75 08/14/24 15:46 Respiratory Rate 16 08/14/24 15:30 Blood Pressure 107/63 08/14/24 15:46 Pulse Oximetry 97 08/14/24 15:46 Oxygen Delivery Me thod Room Air 08/14/24 15:46 MDM - Neuro Symptoms/Deficit Medical Decision Making ROS: Constitutional: Denies fever Respiratory: Reports shortness of breath Cardiovascular: Denies chest pain Gastrointestinal: Reports nausea, difficulty eating dinner Neurological: Reports left-sided weakness, facial droop, left arm pain All other systems reviewed and negative MEDICATIONS AND ALLERGIES: Medications: Recent medication changes by hospital and Dr. Moran, including discontinuation of two stomach medications. Likely on blood thinners including possible Plavix/clopidogrel - full list to be verified Allergies: None reported PAST HISTORICAL DATA: PMH: Previous CVA 2 years ago with left-sided deficits, Recent CVA 2 weeks ago with left-sided deficits PSH: None reported Social History: Ambulatory with walker/cane at baseline PHYSICAL EXAM: General: Alert, able to communicate HEENT: Facial asymmetry with left-sided droop noted, worse than baseline Neck: Supple Respiratory: No increased work of breathing Cardiovascular: Regular rate and rhythm Neurological: - Mental Status: Alert and oriented - Cranial Nerves: Left facial droop present - Motor: Left-sided weakness, particularly with leg movement and arm extension - Coordination: No significant drift noted on arm drift testing - Gait: Able to walk into ED INITIAL IMPRESSION AND PLAN: Given history and presentation, primary working diagnosis is Acute Stroke vs. Stroke Extension. Additional considerations include TIA. Plan: 1. CT head without contrast 2. CT angiogram head and neck 3. Labs including CBC, CMP, coagulation studies 4. Neurology consultation 5. IV fluids TEST INTERPRETATIONS: CT Head: Negative for acute intracranial findings. Shows cerebral atrophy with chronic ischemic changes CTA Head/Neck: No acute changes. Chronic findings include: - Right M1 segment stenosis (stable) - 2mm left M1 segment aneurysm - Chronically stenotic right CRUZ Labs: - CBC: Unremarkable - PT/PTT/INR: Unremarkable - Chemistry: BUN 34, Creatinine 1.8, Glucose 121 - UA/UCx: Pending EKG is a ventricular paced rhythm. No ischemic ST changes. PROCEDURES: No acute procedures performed CONSIDERED BUT NOT PERFORMED: Thrombolysis (tPA) CONSIDERED but NOT DONE due to recent stroke within past 2 weeks, which is a contraindication due to increased risk of hemorrhagic conversion FINAL IMPRESSION: Based on all the above, my clinical impression is most compatible with Acute Stroke/Stroke Extension. The clinical picture is not currently suggestive of intracranial hemorrhage or other acute neurological processes. Although other conditions were also considered, they were deemed unlikely based on the clinical information available. CLINICAL DISPOSITION: The patient's current condition is stable but requires admission for further management and monitoring. The most appropriate and indicated disposition at this time is admission to the hospital under Dr. Caro's service. Rationale for admission: Patient requires close neurological monitoring, medical management optimization including possible antiplatelet medication changes (consideration of Brilinta), and physical therapy evaluation given acute neurological changes. RISK STRATIFICATION AND CLINICAL DECISION RULES APPLIED: Time-based stroke protocols applied - patient evaluated for tPA candidacy but excluded due to recent stroke within past 2 weeks CASE SUMMARY: 83-year-old male with history of two prior strokes (2 years ago and 2 weeks ago) presents with acute worsening of left-sided weakness and facial droop. Last known well approximately 13:30 today. Initial evaluation revealed left-sided weakness and facial asymmetry. CT/CTA showed no acute changes but chronic vascular disease. Patient was evaluated by neurology who agreed with withholding tPA due to recent stroke. Patient admitted for further management and consideration of antiplatelet medication adjustment. Lab Data I reviewed the patient's lab results. 08/14/24 16:09 08/14/24 16:[address] 08/14/24 15:54 IMPRESSION: 1. No acute findings noted 2. Cerebral atrophy with chronic ischemic changes noted ASSESSMENT: ASPECTS ([place] Stroke Program Early CT Score) is 10. ADDENDUM: 08/14/24 [id number] COMMENT: THIS REPORT CONTAINS FINDINGS THAT MAY BE CRITICAL TO PATIENT CARE. The exam findings were verbally communicated by me to HEIKE TINOCO via telephone conference at 4:34 PM CDT on 08/14/2024. The findings were acknowledged and understood. Head/Neck CTA 08/14/24 15:58 IMPRESSION: 1. No acute change noted 2. 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 Chronically stenotic right CRUZ IMPRESSION: Stable 60% right ICA stenosis REFERENCES: NASCET CRITERIA. The degree of stenosis in the cervical segment of the internal carotid artery is based on NASCET criteria. Normal is no stenosis. Mild is less than 50% stenosis. Moderate is 50-69% stenosis. Severe is 70% to 99% stenosis. Total occlusion is no detectable patent lumen. Laboratory Results WBC 6.79 10^3/uL (3.29-11.43) 08/14/24 16:09 RBC 4.08 10^6/uL (3.85-5.65) 08/14/24 16:09 Hgb 13.60 g/dL (11.27-16.99) 08/14/24 16:09 Hct 38.8 % (37-53) 08/14/24 16:09 MCV 95.1 fl (82-101) 08/14/24 16:09 MCH 33.3 pg (27-33) H 08/14/24 16:09 MCHC 35.1 g/dL (30-55) 08/14/24 16:09 RDW 12.4 % (12.1-15.1) 08/14/24 16:09 Plt Count 121 10^3/cmm (157-399) L 08/14/24 16:09 MPV 10.1 fL (7.4-10.4) 08/14/24 16:09 Neut % (Auto) 67.3 % 08/14/24 16:09 Lymph % (Auto) 14.9 % 08/14/24 16:09 [place] % (Auto) 10.5 % 08/14/24 16:09 Eos % (Auto) 6.6 % 08/14/24 16:09 Baso % (Auto) 0.6 % 08/14/24 16:09 Neut # (Auto) 4.57 10^3/uL (1.8-7.7) 08/14/24 16:09 Lymph # (Auto) 1.0 10^3/uL (0.8-4.8) 08/14/24 16:09 [place] # (Auto) 0.7 10^3/uL (0.2-0.9) 08/14/24 16:09 Eos # (Auto) 0.5 10^3/uL (0.0-0.8) 08/14/24 16:09 Baso # (Auto) 0.0 10^3/uL (0.0-0.1) 08/14/24 16:09 Nucleated RBC % (auto) 0 % 08/14/24 16:09 Nucleated RBCs # 0.0 /100WBC 08/14/24 16:09 PT 14.70 SECONDS (12.1-14.9) 08/14/24 16:09 INR 1.08 (0.8-1.2) 08/14/24 16:09 APTT 32.0 SECONDS (23.9-36.7) 08/14/24 16:09 Sodium 144 mmol/L (136-145) 08/14/24 16:09 Potassium 4.1 mmol/L (3.5-5.1) 08/14/24 16:09 Chloride 112 mmol/L (98-107) H 08/14/24 16:09 Carbon Dioxide 21 mmol/L (22-29) L 08/14/24 16:09 Anion Gap 15.1 (5-19) 08/14/24 16:09 BUN 34 mg/dL (8-23) H 08/14/24 16:09 Creatinine 1.8 mg/dL (0.7-1.2) H 08/14/24 16:09 GFR Calculation Not Reportable 08/14/24 16:09 Glucose 121 mg/dL (65-115) H 08/14/24 16:09 Calculated Osmolality 307 mOsm/kg (285-295) H 08/14/24 16:09 Calcium 8.6 mg/dL (8.5-10.5) 08/14/24 16:09 Total Bilirubin 0.4 mg/dL (0.15-1.2) 08/14/24 16:09 AST 19 U/L (0-40) 08/14/24 16:09 ALT 20 U/L (0-41) 08/14/24 16:09 Alkaline Phosphatase 82 U/L (40-130) 08/14/24 16:09 Total Protein 6.2 g/dL (6.6-8.7) L 08/14/24 16:09 Albumin 3.6 g/dL (3.5-5.2) 08/14/24 16:09 Globulin 2.6 g/dL (1.3-4.6) 08/14/24 16:09 All radiology interpretation(s) finalized by discharge Discharge Plan Discharge Patient Disposition: Admitted As Inpatient Clinical Impression: Acute CVA (cerebrovascular accident), Chronic kidney disease Condition: Stable Coding Level of Care Code ED [employer]et Manager for Gilbert Bettencourt
--- NOTE | 2024-08-14 17:48 | PM.HP ---
Providers/Chief Complaint Primary Care Provider: Aicha Moran MD Chief Complaint: stroke like symptoms History of Present Illness Eliza Grimm is a 83 year old male with a past medical history of CVA, right middle cerebral artery stroke, with residual left-sided weakness which is mild, systolic CHF, CKD, CAD, aortic valve replacement, history of CAD, HISTORY OF GI BLEED WITH ANTICOAGULANT THERAPY HYPERLIPIDEMIA, GERD, recent hospitalization for acute chronic left-sided weakness, concerns for acute CVA, not a candidate for tPA, discharged home, also with Enterococcus VRE UTI, who presents to [facility] due to acute left-sided weakness. Currently patient is alert oriented x 3, following all commands, slight left facial droop, no word finding difficulty, does have left upper left lower extremity weakness although significantly improved, patient's daughter is at bedside, patient's symptoms started roughly 2:30 PM 08/14/2024, reported increased left-sided weakness, involving left arm, left face, left leg, brought to [facility], NIH stroke scale was 5, was not deemed a tPA candidate due to recent CVA, history of GI bleed on Xarelto, reports taking his medications as prescribed Review of Systems Const: Denies: fever(s) Card: Denies: chest pain Resp: Denies: dyspnea GI: Denies: abdominal pain Medications/Allergies Home Medications ?Medication ?Instructions ?Recorded ?Confirmed ?Last Taken ?Type aspirin 81 mg chewable tablet 81 mg PO QAM #90 tabs 12/25/21 08/11/24 07/31/24 Rx levothyroxine 50 mcg tablet 50 mcg PO QAM #90 tabs 04/24/23 08/11/24 07/31/24 Rx (Synthroid) isosorbide mononitrate 30 mg 15 mg (1/2 x 30 mg) PO DAILY #90 06/24/23 08/11/24 07/31/24 Rx tablet,extended release 24 hr tabs furosemide 20 mg tablet 20 mg PO .SAT/SAT/SAT/SAT #90 tabs 09/27/23 08/11/24 04/22/24 Rx finasteride 5 mg tablet 5 mg PO DAILY 01/16/24 08/11/24 07/31/24 History tzclndih-owvecebz-jyubz acid 400 1 tab PO QAM 01/24/24 08/11/24 07/31/24 History mcg-vit K 20 mcg-lycop 300 mcg tablet (Men's Daily Formula) tamsulosin 0.4 mg capsule 0.4 mg PO QPM 01/24/24 08/11/24 07/30/24 20:00 History amlodipine 5 mg tablet 5 mg PO QAM #90 tabs 02/27/24 08/11/24 07/31/24 Rx docusate sodium 50 mg capsule 50 mg PO DAILY 07/31/24 08/11/24 07/31/24 History atorvastatin 40 mg tablet 40 mg PO BEDTIME 30 days #30 tabs 08/02/24 08/11/24 Unknown Rx clopidogrel 75 mg tablet 75 mg PO DAILY 19 days #19 tabs 08/02/24 08/11/24 Unknown Rx sertraline 25 mg tablet (Zoloft) 25 mg PO DAILY improve mood #30 08/11/24 08/11/24 Unknown Rx tabs Allergies Allergy/AdvReac Type Severity Reaction Status Date / Time rosuvastatin (From Crestor) Allergy Mild Makes me Verified 08/11/24 09:52 daria nitroglycerin Allergy Unknown Makes me Verified 08/11/24 09:52 wild amitriptyline AdvReac Made me Verified 08/11/24 09:52 weak and draia, wasn't thinking right rivaroxaban (From Xarelto) AdvReac black stool Verified 08/11/24 09:52 PFSH Acute PFSH: Medical History VRE (vancomycin-resistant Enterococci) Pseudomonas urinary tract infection 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 Seborrheic keratoses Stroke Dizziness and giddiness Fatigue Dyslipidemia Diverticulosis Hiatal hernia History of pulmonary embolism History of Sindy-Kirk syndrome Chronic kidney disease Insomnia GERD (gastroesophageal reflux disease) Systolic congestive heart failure Thoracic aortic aneurysm CAD (coronary artery disease) Surgical History Status post transcatheter aortic valve replacement (TAVR) using bioprosthesis aortic stenosis History of drainage of abscess Percutaneous, right lower quadrant suspected appendiceal abscess History of cataract surgery Bilateral History of coronary artery stent placement Reports a total of 3 stents after her last CABG done in [facility] 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 History of cholecystectomy Family History Mother Diabetes Stroke Father Gallbladder disease Brother Chronic kidney disease (CKD) Diabetes Denies family history of CAD (coronary artery disease) Clotting disorder Dementia Suicide Anesthesia complication Bleeding disorder Lung disease Cancer Social History Smoking and tobacco/nicotine status: never used tobacco/nicotine Alcohol intake: never Substance/Drug Use: never Caregiver/support person: Yes Household members: spouse Vitals/I&O/Wt Last Vital Signs Temp 98.0 F 08/14/24 15:30 Pulse 75 08/14/24 15:46 Resp 16 08/14/24 15:30 BP 107/63 08/14/24 15:46 Pulse Ox 97 08/14/24 15:46 O2 Del Method Room Air 08/14/24 15:46 08/14/24 08/14/24 08/14/24 06:59 14:59 22:59 Intake Total 0 / 0 Balance 0 / 0 Weight last 48 hrs Weight 81.647 kg Physical Exam Const: COMMON NORMALS: no acute distress and patient oriented x3 HENMT: COMMON NORMALS: normocephalic HEAD & SCALP: normocephalic Eye: COMMON NORMALS: Equal, round and reactive pupils present and EOMs intact bilaterally Resp: COMMON NORMALS: normal respiratory effort, No retractions, No use of accessory muscles and clear to auscultation bilaterally AUSCULTATION: clear to auscultation bilaterally Cardio: COMMON NORMALS: regular rate, regular rhythm, S1 normal heart sound present and S2 normal heart sound present RATE: regular rate RHYTHM: regular rhythm HEART SOUNDS: S1 normal heart sound present and S2 normal heart sound present GI: COMMON NORMALS: Normal to inspection, nondistended, normoactive bowel sounds present, Soft to palpation and non-tender Extremity: COMMON NORMALS: no calf tenderness and no pedal edema Neuro: COMMON NORMALS: patient oriented x3 OTHER: Pupils equal round reactive to light Slight left facial droop No slurring of words No word finding difficulty Left upper extremity strength 4 out of 5 Left lower extremity strength 4 out of 5 [place]-vt-[id number] abnormal on the left NIH stroke scale 4 Psych: COMMON NORMALS: mental status grossly normal Data 08/14/24 16:09 08/14/24 16:09 A&P Assessment and plan (1) Acute CVA (cerebrovascular accident): Plan - Acute CVA - With acute on chronic left-sided weakness - Similar to prior presentation - He is almost back to normal currently - Not a tPA candidate given history of recent CVA - NIH stroke scale 5 -Cannot do MRI given pacemaker - CT head CT/CT head thrombolytic 37867 IMPRESSION: 1. No acute findings noted 2. Cerebral atrophy with chronic ischemic changes noted CT/CT angio headneck* [id number]/[id number] IMPRESSION: 1. No acute change noted 2. 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 Chronically stenotic right CRUZ IMPRESSION: Stable 60% right ICA stenosis Plan - Admit to medical floors - Bedside swallow eval - PT OT, speech therapy eval - Allow for permissive hypertension treat if systolic blood pressure greater than 220 or diastolic greater than 120 - Telemetry monitoring - Aspirin, statin, Plavix - Patient had a echo during his last hospitalization, no intracardiac shunting -As patient is already recurrently happening on the left side, question about seizures? Seizure precautions - Full code - Lovenox for DVT prophylaxis PDMP PDMP Reviewed: Not Reviewed Attestations Medical Necessity Statement*: Patient requires hospitalization, inpatient, greater than 2 midnights, for acute CVA Diagnoses Acute CVA (cerebrovascular accident) I63.9
[2024-08-14 20:24] LABS: Bilirubin Urine Negative (Negative); Blood Urine Trace (Negative); Glucose Urine UA Negative (Normal); Ketones Urine Negative (Negative); Leukocyte Esterase Urine 1+ (Negative); Nitrate Urine Negative (Negative); Protein Urine Trace (Negative); Urine Appearance Clear (CLEAR); Urine Color Yellow (Yellow); Urobilinogen Urine 0.2 mg/dL (Negative); pH Urine 5.5 (5-7)
[2024-08-14 20:29] LABS: Add Urine Microscopic? YES; Bacteria Urine None Seen /hpf; RBC Urine 0-2 /hpf (0-2); Squamous Epithelial Cell Urine 0-5 /hpf (0-5); WBC Urine 21-50 /hpf (0-5)
[2024-08-14 20:30] LABS: Amphetamines Screen Urine Negative (Negative); Barbiturates Screen Urine Negative (Negative); Benzodiazepines Screen Urine Negative (Negative); Cocaine Screen Urine Negative (Negative); Opiate Screen Urine Negative (Negative); PCP Screen Urine Negative (Negative); THC Screen Urine Negative (Negative)
[2024-08-14 20:55] LABS: Add Urine Culture? Yes; Specific Gravity, Urine 1.033 (1.005-1.030)
[2024-08-14] MEDS: tamsulosin 0.4 mg Capsule PO (20:57)
[2024-08-14] MEDS: enoxaparin 40 mg/0.4 mL Syringe SUBCUT (20:57)
[2024-08-14] MEDS: atorvastatin 40 mg Tablet PO (20:57)
[2024-08-14] MEDS: pantoprazole 40 mg SDV IVP (20:58)
[2024-08-14] MEDS: sodium chloride 0.9% 1,000 ML 100 ML IV (21:07)
[2024-08-15] VITALS (7 sets, daily range): BP systolic 145–177; BP diastolic 75–93; PULSE 60–69; RESP 15–19; TEMP 36.6–36.7; O2SAT 94–98
[2024-08-15 03:03] LABS: Basophils # 0.1 10^3/uL (0.0-0.1); Basophils % 0.7 %; Eosinophils # 0.5 10^3/uL (0.0-0.8); Eosinophils % 6.8 %; Hematocrit 38.1 % (37-53); Lymphocytes # 1.3 10^3/uL (0.8-4.8); Lymphocytes % 17.8 %; Mean Corpuscular HGB Conc 35.7 g/dL (30-55); Mean Corpuscular Hemoglobin 33.1 pg (27-33); Mean Corpuscular Volume 92.7 fl (82-101); Mean Platelet Volume 10.4 fL (7.4-10.4); Monocytes # 0.9 10^3/uL (0.2-0.9); Monocytes % 12.1 %; Neutrophils # 4.57 10^3/uL (1.8-7.7); Neutrophils % 62.2 %; Nucleated Red Blood Cells % 0 %; Platelet Count 106 10^3/cmm (157-399); Red Blood Count 4.11 10^6/uL (3.85-5.65); Red Cell Distribution Width 12.3 % (12.1-15.1); White Blood Count 7.35 10^3/uL (3.29-11.43)
[2024-08-15 03:23] LABS: Anion Gap 11.7 (5-19); Blood Urea Nitrogen 31 mg/dL (8-23); Calcium 8.7 mg/dL (8.5-10.5); Carbon Dioxide 23 mmol/L (22-29); Chloride 111 mmol/L (98-107); Creatinine Clr Calc Pharmacy 41.6036; Glucose 94 mg/dL (65-115); Osmolality Calculated 300 mOsm/kg (285-295); Potassium 3.7 mmol/L (3.5-5.1); Sodium 142 mmol/L (136-145)
[2024-08-15] MEDS: aspirin 81 mg Chew Tablet PO (05:04)
[2024-08-15] MEDS: levothyroxine 50 mcg Tablet PO (05:04)
[2024-08-15] MEDS: sertraline 50 mg Tablet 25 MG PO (09:36)
[2024-08-15] MEDS: DOCUSATE SODIUM 100 MG/10 ML UDC 50 MG PO (09:36)
[2024-08-15] MEDS: clopidogrel 75 mg Tablet PO (09:38)
[2024-08-15] MEDS: finasteride 5 mg Tablet PO (09:39)
[2024-08-15] MEDS: sodium chloride 0.9% 1,000 ML 100 ML IV (09:40)
--- NOTE | 2024-08-15 15:22 | P.PN_ITS ---
Subjective 2 Subjective: Currently patient alert oriented x 3, following commands, denies any headache, no blurry vision, no nausea, no vomiting, no word finding difficulty,, no significant left lower extremity weakness, discussed with patient that this possibly could be seizures as he continues to have intermittent episodes of left upper and left lower extremity weakness that comes and goes, this is his fourth episode, we will do a trial of Keppra Vitals/I&O/Wt Last Vital Signs Temp 98.0 F 08/15/24 11:38 Pulse 62 08/15/24 11:38 Resp 17 08/15/24 11:38 BP 159/81 08/15/24 11:38 Pulse Ox 98 08/15/24 11:38 O2 Del Method Room Air 08/15/24 11:38 08/15/24 08/15/24 08/15/24 06:59 14:59 22:59 Intake Total 1000 / 1000 Output Total 825 / 825 1550 / 1550 Balance -825 / 175 -550 / -550 Weight last 48 hrs Weight 80.422 kg Weight 80.739 kg Weight 81.647 kg Physical Exam 2 Const: COMMON NORMALS: no acute distress and patient oriented x3 Eye: COMMON NORMALS: Equal, round and reactive pupils present and EOMs intact bilaterally PUPIL: Yes Equal, round and reactive pupils present Resp: COMMON NORMALS: normal respiratory effort, No retractions, No use of accessory muscles and clear to auscultation bilaterally AUSCULTATION: clear to auscultation bilaterally Cardio: COMMON NORMALS: regular rate, regular rhythm, S1 normal heart sound present and S2 normal heart sound present RATE: regular rate RHYTHM: r egular rhythm HEART SOUNDS: S1 normal heart sound present and S2 normal heart sound present GI: COMMON NORMALS: Normal to inspection, nondistended, normoactive bowel sounds present and non-tender Extremity: COMMON NORMALS: no pedal edema Neuro: COMMON NORMALS: patient oriented x3, CN's II-XII intact bilaterally, moves all extremities and no focal motor deficits Psych: COMMON NORMALS: mental status grossly normal Data 08/15/24 02:40 08/15/24 02:40 A&P Assessment and plan (1) Acute CVA (cerebrovascular accident): Plan - Acute CVA - With acute on chronic left-sided weakness - Similar to prior presentation - He is almost back to normal currently - Not a tPA candidate given history of recent CVA - NIH stroke scale 5 -Cannot do MRI given pacemaker - CT head CT/CT head thrombolytic [id number] IMPRESSION: 1. No acute findings noted 2. Cerebral atrophy with chronic ischemic changes noted CT/CT angio headneck* [id number] IMPRESSION: 1. No acute change noted 2. 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 Chronically stenotic right CRUZ IMPRESSION: Stable 60% right ICA stenosis Plan - Admit to medical floors - Bedside swallow eval - PT OT, speech therapy eval - Allow for permissive hypertension treat if systolic blood pressure greater than 220 or diastolic greater than 120 - Telemetry monitoring - Aspirin, statin, Plavix - Patient had a echo during his last hospitalization, no intracardiac shunting -As patient is already recurrently happening on the left side, question about seizures? Seizures from possible scarring from previous strokes, however cannot do an MRI given patient's pacemaker, seizure precautions, will place patient on Keppra 500 twice daily - Full code - Lovenox for DVT prophylaxis PDMP PDMP Reviewed: Not Reviewed Attestations 2 Medical Necessity Statement*: Patient requires hospitalization for acute CVA, possible seizures Diagnoses Acute CVA (cerebrovascular accident) I63.9
[2024-08-15] MEDS: levETIRAcetam 500 MG/100 ML PREMIX 400 MG IV (17:02)
[2024-08-15] MEDS: tamsulosin 0.4 mg Capsule PO (21:42)
[2024-08-15] MEDS: pantoprazole 40 mg SDV IVP (21:42)
[2024-08-15] MEDS: atorvastatin 40 mg Tablet PO (21:42)
[2024-08-15] MEDS: enoxaparin 40 mg/0.4 mL Syringe SUBCUT (21:43)
[2024-08-16] VITALS (7 sets, daily range): BP systolic 126–174; BP diastolic 72–93; PULSE 59–74; RESP 17–20; TEMP 36.4–36.8; O2SAT 95–98
[2024-08-16] MEDS: levETIRAcetam 500 MG/100 ML PREMIX 400 MG IV (03:11)
[2024-08-16 04:34] LABS: Basophils % 0.5 %; Eosinophils # 0.6 10^3/uL (0.0-0.8); Eosinophils % 7.8 %; Hematocrit 42.3 % (37-53); Lymphocytes # 1.3 10^3/uL (0.8-4.8); Lymphocytes % 17.2 %; Mean Corpuscular HGB Conc 33.6 g/dL (30-55); Mean Corpuscular Hemoglobin 32.6 pg (27-33); Mean Corpuscular Volume 97.2 fl (82-101); Mean Platelet Volume 11.3 fL (7.4-10.4); Monocytes # 0.9 10^3/uL (0.2-0.9); Monocytes % 11.9 %; Neutrophils # 4.54 10^3/uL (1.8-7.7); Neutrophils % 62.2 %; Nucleated Red Blood Cells % 0 %; Platelet Count 116 10^3/cmm (157-399); Red Blood Count 4.35 10^6/uL (3.85-5.65); White Blood Count 7.31 10^3/uL (3.29-11.43)
[2024-08-16 04:51] LABS: Blood Urea Nitrogen 20 mg/dL (8-23); Carbon Dioxide 22 mmol/L (22-29); Chloride 109 mmol/L (98-107); Creatinine Clr Calc Pharmacy 51.9224; Glucose 72 mg/dL (65-115); Osmolality Calculated 297 mOsm/kg (285-295); Sodium 143 mmol/L (136-145)
[2024-08-16 04:59] LABS: Anion Gap 15.7 (5-19); Potassium 3.7 mmol/L (3.5-5.1)
[2024-08-16] MEDS: levothyroxine 50 mcg Tablet PO (05:38)
[2024-08-16] MEDS: aspirin 81 mg Chew Tablet PO (05:38)
[2024-08-16] MEDS: sodium chloride 0.9% 1,000 ML 100 ML IV (05:56)
[2024-08-16] MEDS: sertraline 50 mg Tablet 25 MG PO (10:05)
[2024-08-16] MEDS: DOCUSATE SODIUM 100 MG/10 ML UDC 50 MG PO (10:05)
[2024-08-16] MEDS: finasteride 5 mg Tablet PO (10:05)
[2024-08-16] MEDS: clopidogrel 75 mg Tablet PO (10:05)
--- NOTE | 2024-08-16 14:45 | P.PN_ITS ---
Subjective 2 Subjective: Patient was seen this morning, he is alert oriented x 3, following commands he does report unsteadiness on his feet but he feels much better left-sided weakness significantly improving, we discussed his trial of Keppra, he denies any weakness on the left side, Vitals/I&O/Wt Last Vital Signs Temp 97.5 F L 08/16/24 11:31 Pulse 59 L 08/16/24 11:31 Resp 18 08/16/24 11:31 BP 126/72 08/16/24 11:31 Pulse Ox 96 08/16/24 11:31 O2 Del Method Room Air 08/16/24 11:31 08/15/24 08/16/24 08/16/24 22:59 06:59 14:59 Intake Total 1340 / 2340 100 / 2440 360 / 360 Output Total 1150 / 2700 400 / 3100 640 / 640 Balance 190 / -360 -300 / -660 -280 / -280 Weight last 48 hrs Weight 83.28 kg Weight 80.422 kg Weight 80.739 kg Weight 81.647 kg Physical Exam 2 Const: COMMON NORMALS: no acute distress and patient oriented x3 Resp: COMMON NORMALS: normal respiratory effort, No retractions, No use of accessory muscles and clear to auscultation bilaterally AUSCULTATION: clear to auscultation bilaterally Cardio: COMMON NORMALS: regular rate, regular rhythm, S1 normal heart sound present and S2 normal heart sound present RATE: regular rate RHYTHM: r egular rhythm HEART SOUNDS: S1 normal heart sound present and S2 normal heart sound present GI: COMMON NORMALS: Normal to inspection, nondistended, normoactive bowel sounds present and non-tender Extremity: COMMON NORMALS: no pedal edema Neuro: COMMON NORMALS: patient oriented x3, CN's II-XII intact bilaterally, moves all extremities and no focal motor deficits Psych: COMMON NORMALS: mental status grossly normal Data 08/16/24 02:55 08/16/24 02:55 Micro: Microbiology 08/14/24 18:30 Urine Culture - Final Urine,Clean Catch A&P Assessment and plan (1) Acute CVA (cerebrovascular accident): Plan - Acute CVA - With acute on chronic left-sided weakness - Similar to prior presentation - He is almost back to normal currently - Not a tPA candidate given history of recent CVA - NIH stroke scale 5 -Cannot do MRI given pacemaker - CT head CT/CT head thrombolytic [id number] IMPRESSION: 1. No acute findings noted 2. Cerebral atrophy with chronic ischemic changes noted CT/CT angio headneck* [id number] IMPRESSION: 1. No acute change noted 2. 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 Chronically stenotic right CRUZ IMPRESSION: Stable 60% right ICA stenosis Plan - Admit to medical floors - Bedside swallow eval - PT OT, speech therapy eval - Allow for permissive hypertension treat if systolic blood pressure greater than 220 or diastolic greater than 120, should be completed by tomorrow then resume blood pressure medications - Telemetry monitoring - Aspirin, statin, Plavix -Can consider Brilinta, but is a high bleed risk -Back in May 2019 - Patient had a echo during his last hospitalization, no intracardiac shunting -As patient is already recurrently happening on the left side, question about seizures? Seizures from possible scarring from previous strokes, however cannot do an MRI given patient's pacemaker, seizure precautions, will place patient on Keppra 500 twice daily - Full code - Lovenox for DVT prophylaxis PDMP PDMP Reviewed: Not Reviewed Attestations 2 Medical Necessity Statement*: Patient requires hospitalization for acute CVA Diagnoses Acute CVA (cerebrovascular accident) I63.9
[2024-08-16] MEDS: tamsulosin 0.4 mg Capsule PO (17:51)
[2024-08-16] MEDS: pantoprazole 40 mg SDV IVP (20:11)
[2024-08-16] MEDS: enoxaparin 40 mg/0.4 mL Syringe SUBCUT (20:12)
[2024-08-16] MEDS: atorvastatin 40 mg Tablet PO (20:12)
[2024-08-17] VITALS (8 sets, daily range): BP systolic 129–150; BP diastolic 76–90; PULSE 62–85; RESP 14–19; TEMP 36.4–36.9; O2SAT 94–98
[2024-08-17 04:55] LABS: Anion Gap 13.8 (5-19); Blood Urea Nitrogen 23 mg/dL (8-23); Calcium 8.6 mg/dL (8.5-10.5); Carbon Dioxide 22 mmol/L (22-29); Chloride 109 mmol/L (98-107); Creatinine Clr Calc Pharmacy 45.0996; Glucose 89 mg/dL (65-115); Osmolality Calculated 295 mOsm/kg (285-295); Potassium 3.8 mmol/L (3.5-5.1); Sodium 141 mmol/L (136-145)
[2024-08-17] MEDS: levothyroxine 50 mcg Tablet PO (05:01)
[2024-08-17] MEDS: aspirin 81 mg Chew Tablet PO (05:01)
[2024-08-17 05:32] LABS: Basophils % 0.4 %; Eosinophils # 0.6 10^3/uL (0.0-0.8); Eosinophils % 7.9 %; Hematocrit 37.6 % (37-53); Lymphocytes # 1.2 10^3/uL (0.8-4.8); Lymphocytes % 16.9 %; Mean Corpuscular HGB Conc 36.4 g/dL (30-55); Mean Corpuscular Hemoglobin 33.3 pg (27-33); Mean Corpuscular Volume 91.5 fl (82-101); Mean Platelet Volume 10.5 fL (7.4-10.4); Monocytes # 0.8 10^3/uL (0.2-0.9); Monocytes % 11.7 %; Neutrophils # 4.33 10^3/uL (1.8-7.7); Neutrophils % 62.4 %; Nucleated Red Blood Cells % 0 %; Platelet Count 122 10^3/cmm (157-399); Red Blood Count 4.11 10^6/uL (3.85-5.65); Red Cell Distribution Width 12.1 % (12.1-15.1); White Blood Count 6.94 10^3/uL (3.29-11.43)
[2024-08-17] MEDS: clopidogrel 75 mg Tablet PO (08:40)
[2024-08-17] MEDS: finasteride 5 mg Tablet PO (08:41)
[2024-08-17] MEDS: sertraline 50 mg Tablet 25 MG PO (08:41)
[2024-08-17] MEDS: levETIRAcetam 500 mg Tablet PO (08:41)
--- NOTE | 2024-08-17 12:00 | PC.SOCIAL ---
IMM UPDATED IMM dated and initialed copy placed in chart and copy given to patient.
[2024-08-17] MEDS: methylphenidate 10 mg Tablet 5 MG PO (14:15)
--- NOTE | 2024-08-17 14:35 | PM.PN ---
Subjective Subjective: Patient was diagnosed with a recent right MCA distribution stroke with left-sided weakness on 07/31/2024. On 08/14/2024 patient again had left-sided weakness involving face arm and leg. NIH stroke scale was 5. It was felt that this was a recurrent CVA. Of note his blood pressure was 107/63 at time of this episode. Currently the patient is without complaints. 1 granddaughter and 3 great-grandchildren are present in the room Vitals/I&O/Wt Last Vital Signs Temp 98.4 F 08/17/24 12:11 Pulse 85 08/17/24 12:11 Resp 18 08/17/24 12:11 BP 150/76 08/17/24 12:11 Pulse Ox 98 08/17/24 07:29 O2 Del Method Nasal Cannula 08/17/24 12:11 08/16/24 08/17/24 08/17/24 22:59 06:59 14:59 Intake Total 120 / 1381.667 200 / 1581.667 360 / 360 Output Total 300 / 940 250 / 1190 Balance -180 / 441.667 -50 / 391.667 360 / 360 Weight last 48 hrs Weight 83.098 kg Weight 83.28 kg Physical Exam Narrative: NIH of 2. Patient could not state his age appropriately but then corrected himself and he had a left arm drift Heart regular normal S1-S2 without murmurs clicks gallops or rubs Lungs clear to auscultation without wheezes rales or rhonchi Abdomen soft nontender nondistended positive bowel sound Extremities no clubbing cyanosis or edema Data 08/17/24 03:57 08/17/24 03:57 CT Head: My impression: Patient with significant cerebral atrophy as well as significant chronic ischemic changes in the white matter Radiologist's impression: Noncontrast head CT 08/14/2024 Cerebral atrophy with chronic ischemic changes noted A&P Assessment and plan (1) Diffuse cerebral atrophy: (2) 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 The patient has such significant small vessel disease in the white matter that an old lacunar infarct is difficult to assess. I highly suspect hypotension to cause a stroke mimic. At this point I would allow permissive hypertension up to a systolic BP of 180. Currently he has been off his antihypertensives and his symptoms have resolved. Granddaughter states he is at his baseline. I called and spoke with the DPOA which is the patient's daughter.. I explained the above brain abnormalities to her and she displayed understanding. I did explain that I also did not think he had a seizure and I am concerned that Keppra with its mood alterations would not be of benefit in this patient that is experiencing significant depression. I do think the patient would benefit for short-term senior living placement for PT OT and speech. I did recommend to the daughter that the family attempt to make plans for both the patient and his to have significant assistance. Today's plan case management to arrange senior living facility placement. Stop Keppra Allow permissive hypertension off previous antihypertensives of amlodipine and Lasix and isosorbide Due to depression and the patient not wanting to do previous things of interest we will start Ritalin to see if that perks him up twice a day at 7 AM and noon PDMP PDMP Reviewed: Not Reviewed Attestations Medical Necessity Statement*: Patient required admission due to suspected CVA. However I believe this is ruled out. 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
[2024-08-17] MEDS: tamsulosin 0.4 mg Capsule PO (17:45)
--- NOTE | 2024-08-17 18:30 | P.DS_ITS ---
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 He had a low blood pressure and NIH of 5. Hospital Course Hospital Course Follow-up CT scans were negative for new stroke. But showed severe small vessel disease consistent with chronic ischemia. He also has severe atrophy. It appears likely that relative hypotension causes a stroke mimic particularly with repeated symptomatology on his left side. Recommend permissive hypertension up to systolic blood pressure of 180. At this time his blood pressures have been within parameters on no medication thus we will stop all home antihypertensives. I spoke with the daughter regarding these recommendations as well as obtaining further care for him. At this time the daughter and her brother have decided to take him home and they will care for him. Physical Exam Narrative: NIH of 2. Patient could not state his age appropriately but then corrected himself and he had a left arm drift Heart regular normal S1-S2 without murmurs clicks gallops or rubs Lungs clear to auscultation without wheezes rales or rhonchi Abdomen soft nontender nondistended positive bowel sound Extremities no clubbing cyanosis or edema Discharge Data Studies Completed and Pending Completed Studies During Hospitalization Category Date Time Status CT head thrombolytic 50208 Stat Cat Scan 08/14/24 15:54 Completed CTA head neck [CT angio headneck* 18208/26269] Stat Cat Scan 08/14/24 15:58 Completed Pending at discharge Category Date Time Status Urine Culture Stat Lab 08/14/24 17:46 Uncollected Radiology Impressions Head CT 08/14/24 15:54 IMPRESSION: 1. No acute findings noted 2. Cerebral atrophy with chronic ischemic changes noted ASSESSMENT: ASPECTS ([place] Stroke Program Early CT Score) is 10. ADDENDUM: 08/14/24 8296 COMMENT: THIS REPORT CONTAINS FINDINGS THAT MAY BE CRITICAL TO PATIENT CARE. The exam findings were verbally communicated by me to HEIKE TINOCO via telephone conference at 4:34 PM CDT on 08/14/2024. The findings were acknowledged and understood. Head/Neck CTA 08/14/24 15:58 IMPRESSION: 1. No acute change noted 2. 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 Chronically stenotic right CRUZ IMPRESSION: Stable 60% right ICA stenosis REFERENCES: NASCET CRITERIA. The degree of stenosis in the cervical segment of the internal carotid artery is based on NASCET criteria. Normal is no stenosis. Mild is less than 50% stenosis. Moderate is 50-69% stenosis. Severe is 70% to 99% stenosis. Total occlusion is no detectable patent lumen. Laboratory Results WBC 6.94 10^3/uL (3.29-11.43) 08/17/24 03:57 RBC 4.11 10^6/uL (3.85-5.65) 08/17/24 03:57 Hgb 13.70 g/dL (11.27-16.99) 08/17/24 03:57 Hct 37.6 % (37-53) 08/17/24 03:57 MCV 91.5 fl (82-101) 08/17/24 03:57 MCH 33.3 pg (27-33) H 08/17/24 03:57 MCHC 36.4 g/dL (30-55) D 08/17/24 03:57 RDW 12.1 % (12.1-15.1) 08/17/24 03:57 Plt Count 122 10^3/cmm (157-399) L 08/17/24 03:57 MPV 10.5 fL (7.4-10.4) H 08/17/24 03:57 Neut % (Auto) 62.4 % 08/17/24 03:57 Lymph % (Auto) 16.9 % 08/17/24 03:57 [place] % (Auto) 11.7 % 08/17/24 03:57 Eos % (Auto) 7.9 % 08/17/24 03:57 Baso % (Auto) 0.4 % 08/17/24 03:57 Neut # (Auto) 4.33 10^3/uL (1.8-7.7) 08/17/24 03:57 Lymph # (Auto) 1.2 10^3/uL (0.8-4.8) 08/17/24 03:57 [place] # (Auto) 0.8 10^3/uL (0.2-0.9) 08/17/24 03:57 Eos # (Auto) 0.6 10^3/uL (0.0-0.8) 08/17/24 03:57 Baso # (Auto) 0.0 10^3/uL (0.0-0.1) 08/17/24 03:57 Nucleated RBC % (auto) 0 % 08/17/24 03:57 Nucleated RBCs # 0.0 /100WBC 08/17/24 03:57 PT 14.70 SECONDS (12.1-14.9) 08/14/24 16:09 INR 1.08 (0.8-1.2) 08/14/24 16:09 APTT 32.0 SECONDS (23.9-36.7) 08/14/24 16:09 Sodium 141 mmol/L (136-145) 08/17/24 03:57 Potassium 3.8 mmol/L (3.5-5.1) 08/17/24 03:57 Chloride 109 mmol/L (98-107) H 08/17/24 03:57 Carbon Dioxide 22 mmol/L (22-29) 08/17/24 03:57 Anion Gap 13.8 (5-19) 08/17/24 03:57 BUN 23 mg/dL (8-23) 08/17/24 03:57 Creatinine 1.4 mg/dL (0.7-1.2) H 08/17/24 03:57 GFR Calculation Not Reportable 08/17/24 03:57 Glucose 89 mg/dL (65-115) 08/17/24 03:57 Calculated Osmolality 295 mOsm/kg (285-295) 08/17/24 03:57 Calcium 8.6 mg/dL (8.5-10.5) 08/17/24 03:57 Total Bilirubin 0.4 mg/dL (0.15-1.2) 08/14/24 16:09 AST 19 U/L (0-40) 08/14/24 16:09 ALT 20 U/L (0-41) 08/14/24 16:09 Alkaline Phosphatase 82 U/L (40-130) 08/14/24 16:09 Total Protein 6.2 g/dL (6.6-8.7) L 08/14/24 16:09 Albumin 3.6 g/dL (3.5-5.2) 08/14/24 16:09 Globulin 2.6 g/dL (1.3-4.6) 08/14/24 16:09 Urine Color Yellow (Yellow) 08/14/24 18:30 Urine Appearance Clear (CLEAR) 08/14/24 18:30 Urine pH 5.5 (5-7) 08/14/24 18:30 Ur Specific [place] 1.033 (1.005-1.030) H 08/14/24 18:30 Urine Protein Trace (Negative) A 08/14/24 18:30 Urine Glucose (UA) Negative (Normal) 08/14/24 18:30 Urine Ketones Negative (Negative) 08/14/24 18:30 Urine Blood Trace (Negative) A 08/14/24 18:30 Urine Nitrate Negative (Negative) 08/14/24 18:30 Urine Bilirubin Negative (Negative) 08/14/24 18:30 Urine Urobilinogen 0.2 mg/dL (Negative) 08/14/24 18:30 Ur Leukocyte Esterase 1+ (Negative) A 08/14/24 18:30 Urine RBC 0-2 /hpf (0-2) 08/14/24 18:30 Urine WBC 21-50 /hpf (0-5) H 08/14/24 18:30 Ur Squamous Epith Cells 0-5 /hpf (0-5) 08/14/24 18:30 Amorphous Sediment Not Reportable 08/14/24 18:30 Urine Bacteria None seen /hpf (NONE) 08/14/24 18:30 Hyaline Casts 3.30 /lpf 08/14/24 18:30 Urine Opiates Screen Negative ng/mL (Negative) 08/14/24 18:30 Ur Barbiturates Screen Negative ng/mL (Negative) 08/14/24 18:30 Ur Phencyclidine Scrn Negative ng/mL (Negative) 08/14/24 18:30 Ur Amphetamines Screen Negative ng/mL (Negative) 08/14/24 18:30 U Benzodiazepines Scrn Negative ng/mL (Negative) 08/14/24 18:30 Urine Cocaine Screen Negative ng/mL (Negative) 08/14/24 18:30 U Marijuana (THC) Screen Negative ng/mL (Negative) 08/14/24 18:30 Vitals Last Vital Signs Temp 98.4 F 08/17/24 12:11 Pulse 85 08/17/24 12:11 Resp 18 08/17/24 12:11 BP 150/76 08/17/24 12:11 Pulse Ox 98 08/17/24 07:29 O2 Del Method Nasal Cannula 08/17/24 12:11 Discharge Plan Discharge Patient Disposition: Home Condition: Stable Prescriptions: Continued sertraline [Zoloft] 25 mg tablet 25 mg PO DAILY Qty: 30 0RF Rx Instructions: ok to start w 1/2 tab daily first week before increasing to whole tablet Synthroid 50 mcg tablet 50 mcg PO QAM Qty: 90 3RF docusate sodium 50 mg Capsule 50 mg PO DAILY atorvastatin 40 mg Tablet 40 mg PO BEDTIME 30 Days Qty: 30 0RF clopidogrel 75 mg Tablet 75 mg PO DAILY 19 Days Qty: 19 0RF aspirin 81 mg Tablet,Chewable 81 mg PO QAM Qty: 90 3RF finasteride 5 mg tablet 5 mg PO DAILY Men's Daily Formula 400-20-300 mcg Tablet 1 tab PO QAM tamsulosin 0.4 mg capsule 0.4 mg PO QPM Discontinued furosemide 20 mg tablet 20 mg PO .MON/WED/FRI/SUN Qty: 90 3RF amlodipine 5 mg tablet 5 mg PO QAM Qty: 90 3RF isosorbide mononitrate 30 mg tablet extended release 24 hr 15 mg PO DAILY Qty: 90 3RF Discharge Orders: Discharge Order (Routine); Ordered 08/17/24 Ordered By: Benito Peres Referrals: Aicha Moarn MD [Primary Care Provider, Family Practice] Discharge Diet: As Directed Discharge Activity: Resume usual activity Patient's Health Concerns: Patient has severe cerebral atrophy and severe white matter disease consistent with chronic ischemic changes. Patient is allowed permissive hypertension due to the severity of his small vessel disease. 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
== END 2024-08-17 18:55 | disposition home or self-care (01) | DRG 315 ==
LOC: ER 17:34 → MEDSURG 18:34
PROVIDERS: Admitting Provider Family Medicine; Emergency Provider Student in an Organized Health Care Education/Training Program; PCP Family Medicine; Visit Provider Internal Medicine
DX: I95.9 Hypotension, unspecified (principal); I13.0 Hypertensive heart and chronic kidney disease with heart failure and stage 1 through stage 4 chronic kidney disease, or unspecified chronic kidney disease; I67.89 Other cerebrovascular disease; I50.22 Chronic systolic (congestive) heart failure; I69.354 Hemiplegia and hemiparesis following cerebral infarction affecting left non-dominant side; I25.10 Atherosclerotic heart disease of native coronary artery without angina pectoris; N18.9 Chronic kidney disease, unspecified; R53.1 Weakness; I71.60 Thoracoabdominal aortic aneurysm, without rupture, unspecified; K21.9 Gastro-esophageal reflux disease without esophagitis; G47.00 Insomnia, unspecified; E78.5 Hyperlipidemia, unspecified; Z79.02 Long term (current) use of antithrombotics/antiplatelets; Z79.82 Long term (current) use of aspirin; Z95.810 Presence of automatic (implantable) cardiac defibrillator; Z95.1 Presence of aortocoronary bypass graft; Z87.440 Personal history of urinary (tract) infections; Z86.711 Personal history of pulmonary embolism; Z95.2 Presence of prosthetic heart valve
CPT/HCPCS: 36415; 70450; 70496; 70498; 80048; 80053; 80306; 81001; 85025; 85610; 85730; 87086; 92523; 92526; 92610; 93005; 94664; 96372; 97116; 97161; 97165; 99285; J1650; J1953; J2470; J7030; J9999

== ENCOUNTER 2024-09-12 11:50 | Emergency (ER) | payer MEDICARE, SELFPAY ==
--- OUTSIDE RECORDS SUMMARY | 2024-05-21 04:30 | XMS_ITS ---
Author Organization [facility] Address [address] [place], [place] [id number] Care Team Providers Care Change Control Specialist Name Role Phone Jay Arroyo Unavailable [phone] REASON FOR VISIT PVP @ [phone] Encounters Encounter Location Date Provider Diagnosis [facility] [address] [place], [place] [id number] 05/21/2024 Jay Arroyo Plan Of Treatment No Information Progress Notes * Jin PLATAOB:1940 (84 yo M)Acc No.[id number]:05/21/2024 Patient: Eliza CHICAS Provider: Yoli Arroyo MD :1940 A ge:83 Y S ex:Male Date:05/21/2024 Address:[address] [place] [address] [address], Stu [id number] * * Electronic signature of Johnny Arroyo MD on 09/12/2024 at 11:53 AM CDT Sign off status: Pending * Provider: Yoli Arroyo MD Date: 05/21/2024 Generated for Ryanne barr/Keyona/eTransmitting on: 0 09/12/2024 11:53 AM CDT
--- OUTSIDE RECORDS SUMMARY | 2024-09-08 10:45 | XMS_ITS ---
Author Organization [facility] Address [address] [place] [address] Care Team Providers Care Shot Bagger Name Role Phone Aicha Moran Primary Care Provider HANY Solano Unavailable [phone] RODNEY ARROYO Unavailable [phone] Allergies Allergen (clinical drug ingredient) Drug/Non Drug Allergy documented on EMR Reaction Allergy Type Onset Date Status amitriptyline Amitriptyline Unknown Drug Allergy Active nitroglycerin Nitroglycerin Unknown Drug Allergy Active rivaroxaban Rivaroxaban Unknown Drug Allergy Act ion rosuvastatin Rosuvastatin Unknown Drug Allergy A ctive REASON FOR VISIT 3 mo w/ fr/pvr Medications Medication SIG (Take, Route, Frequency, Duration) Notes Start Date End Date Status Tamsulosin HCl 0.4 MG 1 capsule Orally Twice a day for 30 days Not-Taking Ciprofloxacin 250mg BID x 5 days Not-Taking Tamsulosin HCl 0.4 MG 1 capsule Orally Once a day for 90 days 06/10/2024 06/05/2025 Active Levothyroxine Sodium 50 MCG 1 tablet in the morning on an empty stomach Orally Once a day Active amLODIPine Besylate Active Finasteride 5 MG 1 tablet Orally Once a day for 90 days 12/04/2023 11/28/2024 Active Carvedilol 12.5 MG 1 tablet with food Orally Twice a day Active Aspirin Adult Low Dose 81 MG 1 tablet Orally Once a day Active Isosorbide Dinitrate 30 MG 1 tablet Orally Twice a day Active Furosemide 20 MG 1 tablet Orally Once a day Active Social History Tobacco Use: Social History Observation Description Date Details (start date - stop date) Never Smoker NA - NA Tobacco Control (Standard) Question Answer Notes Tobacco use: Nonsmoker AUDIT-C (Standard) Question Answer Notes Did you have a drink containing alcohol in the p ast year? No Points 0 Interpretation Negative Section Notes: nonsmoker Vital Signs Blood pressure systolic 148 mm Hg 09/09/19 25 Blood pressure diastolic 68 mm Hg 025 Heart Rate 72 /min 09/08/2024 Height 73 in 09/08/2024 Weight 170 lbs 09/08/2024 BMI 22.43 kg/m2 09/08/2024 Height-cm 185.42 cm 09/08/2024 Weight-kg 77.11 kg 09/08/2024 Procedures Procedure Date Ordered Date Performed Result Body Sit e Bladder Scan 09/08/2024 09/08/2024 52 ml UroFlow 09/08/2024 09/08/2024 N/A Encounters Encounter Location Date Provider Diagnosis [facility] [address] [place] [address] 09/08/2024 RODNEY SHERRI Urinary retention R33.9 ; BPH loc w urin obs/LUTS N40.1 ; Recurrent UTI N39.0 and Encounter for attention to cystostomy Z43.5 Assessments Encounter Date Diagnosis (ICD Code) Assessment Notes Treatment Notes Treatment Clinical Notes Section Notes 09/08/2024 Urinary retention (ICD-10 - R33.9) He has good noninvasive urodynamics today with minimal PVR of 52 cc. He denies any voiding difficulties and is off prostate medications which was good considering he was approaching permanent urinary retention. Return yearly for noninvasive urodynamics. Return sooner with any worsening symptoms. 09/08/2024 BPH loc w urin obs/LUTS (ICD-10 - N40.1) He has good noninvasive urodynamics today with minimal PVR of 52 cc. He denies any voiding difficulties and is off prostate medications which was good considering he was approaching permanent urinary retention. Return yearly for noninvasive urodynamics. Return sooner with any worsening symptoms. 09/08/2024 Recurrent UTI (ICD-10 - N39.0) He has good noninvasive urodynamics today with minimal PVR of 52 cc. He denies any voiding difficulties and is off prostate medications which was good considering he was approaching permanent urinary retention. Return yearly for noninvasive urodynamics. Return sooner with any worsening symptoms. 09/08/2024 Encounter for attention to cystostomy (ICD-10 - Z43.5) He has good noninvasive urodynamics today with minimal PVR of 52 cc. He denies any voiding difficulties and is off prostate medications which was good considering he was approaching permanent urinary retention. Return yearly for noninvasive urodynamics. Return sooner with any worsening symptoms. Plan Of Treatment Next Appt Details Follow Up: 1 Year, Reason: Provider Name:RODNEY [place], 09/14/2025 09:05:00 AM, [address] [place], [address], Progress Notes * Eliza PLATA LDOB:[birth year] (84 yo M)Acc No.[id number]:09/08/2024 Progress Notes Patient: Eliza CHICAS Provider: Yoli Arroyo MD :1940 A ge:84 Y S ex:Male Date:09/08/2024 Address:[address] [place], [place] [id number] Pcp:Aicha Moran Subjective: * Chief Complaints: * 3 mo w/ fr/pvr * HPI: * : Mr. Plata is an 83yoM referred from [facility] ER for episode of urinary retention. He has history of CVA about a year ago. He has extensive cardiac history including status post TAVR, 3 cardiac stents after CABG. Over the last few months, patient had several episodes of urinary retention requiring trammell placement and failed voiding trials. He was on flomax bid. He had cystoscopy showing high- grade prostate obstruction. Dr. Arroyo discussed surgical options versus continued medications and catheter dependency. They also discussed CIC as an option. He was deemed a good candidate for PVP and information pamphlet was given. He elected to try maximal medical management first. Started proscar. He continued to fail v/t and was not able to CIC. Underwent 125kj PVP on 05/21/24. Here today for 3m f/u with noninvasive urodynamics. * ROS: G eneral / Constitutional: Comments S ee HPI for details; reviewed 5 point ROS and updated pertinent details in HPI. * Medical History: * Surgical History: C ABG 1995CABG 2010Pacemaker VP * Hospitalization/Major Diagno stic Procedure: D izziness izziness, urinary retention etention 10/2023 * Family History: F ather: 71 yrs, related to Gallbladder. M other: 89 yrs, Stroke. * Social History: T obacco Use: T obacco Control (Standard) T obacco use: N onsmoker D rug/Alcohol: A MAUREEN-C (Standard) D id you have a drink containing alcohol in the past year? N o P oints 0 I nterpretation N egative n onsmoker. * Medications: T akingamLODIPine Besylate Levothyroxine Sodium 50 MCG Tablet 1 tablet in the morning on an empty stomach Orally Once a day Isosorbide Dinitrate 30 MG Tablet 1 tablet Orally Twice a day Furosemide 20 MG Tablet 1 tablet Orally Once a day Carvedilol 12.5 MG Tablet 1 tablet with food Orally Twice a day Aspirin Adult Low Dose 81 MG Tablet Delayed Release 1 tablet Orally Once a day Finasteride 5 MG Tablet 1 tablet Orally Once a day , stop date 11/28/2024Tamsulosin HCl 0.4 MG Capsule 1 capsule Orally Once a day , stop date 06/05/2025Taking amLODIPine Besylate Taking Levothyroxine Sodium 50 MCG Tablet 1 tablet in the morning on an empty stomach Orally Once a day Taking Isosorbide Dinitrate 30 MG Tablet 1 tablet Orally Twice a day Taking Furosemide 20 MG Tablet 1 tablet Orally Once a day Taking Carvedilol 12.5 MG Tablet 1 tablet with food Orally Twice a day Taking Aspirin Adult Low Dose 81 MG Tablet Delayed Release 1 tablet Orally Once a day Taking Finasteride 5 MG Tablet 1 tablet Orally Once a day , stop date 11/28/2024Taking Tamsulosin HCl 0.4 MG Capsule 1 capsule Orally Once a day , stop date 06/05/2025Not-TakingTamsulosin HCl 0.4 MG Capsule 1 capsule Orally Twice a day Ciprofloxacin , Notes to Pharmacist: 250mg BID x 5 daysMedication List reviewed and reconciled with the patientNot-Taking Tamsulosin HCl 0.4 MG Capsule 1 capsule Orally Twice a day Not-Taking Ciprofloxacin , Notes to Pharmacist: 250mg BID x 5 daysMedication List reviewed and reconciled with the patient * Allergies: R osuvastatinNitroglycerinAmitriptylineRivaroxabanno[Allergies Verified] Objective: * Vitals: B P: 148/68 mm Hg, HR: 72 /min, Wt: 170 lbs, Wt-k.11 kg, Ht: 73 in, Ht-cm: 185.42 cm, BMI: 22.43 Index, Body Surface Area: 1.99. * Examination: G eneral Examination: General appearance: a lert, well-nourished and in no acute distress . Heart: r egular rate and no peripheral edema. Lungs: u nlabored respiration with good air movement. Abdomen: s oft, nontender. Male genitourinary: n o SP or CVAT tenderness. Musculoskeletal: n o deformity. Assessment: * Assessment: 1. B PH loc w urin obs/LUTS - N40.1 (Primary) 2 . U rinary retention - R33.9 3 . R ecurrent UTI - N39.0 4 . E ncounter for attention to cystostomy - Z43.5 He has good noninvasive urod ynamics today with minimal PVR of 52 cc. He denies any voiding difficulties and is off prostate medications which was good considering he was approaching permanent urinary retention. Return yearly for noninvasive urodynamics. Return sooner with any worsening symptoms. Plan: * Treatment: * Procedure Codes: 5 1741 ELECTRO-UROFLOWMETRY, [id number] US URINE CAPACITY MEASURE * Follow Up: 1 Year * Billing Information: * Visit Code: 47438 Office Visit, Est Pt., Level 3. Modifiers: 25 * Procedure Codes: 89909 ELECTRO-UROFLOWMETRY, FIRST. 35518 US URINE CAPACITY MEASURE. * Sign off status: Completed true * Provider: Yoli Arroyo MD Date: 09/08/2024 Generated for Ryanne barr/Keyona/Honeyitting on: 09/12/2024 11:53 AM CDT History and Physical Notes * HPI (History of Present Illness) Category Sub-Category Detail Notes Category Not es Mr. Plata is an 83yoM referred from [facility] ER for episode of urinary retention. He has history of CVA about a year ago. He has extensive cardiac history including status post TAVR, 3 cardiac stents after CABG. Over the last few months, patient had several episodes of urinary retention requiring trammell placement and failed voiding trials. He was on flomax bid. He had cystoscopy showing high-grade prostate obstruction. Dr. Arroyo discussed surgical options versus continued medications and catheter dependency. They also discussed CIC as an option. He was deemed a good candidate for PVP and information pamphlet was given. He elected to try maximal medical management first. Started proscar. He continued to fail v/t and was not able to CIC. Underwent 125kj PVP on 05/21/24. Here today for 3m f/u with noninvasive urodynamics Examination Category Sub-Category Detail Notes Category Not es General Examination General appearance: alert, w ell-nourished and in no acute distress Heart: regular rate and no peripheral edema Lungs: unlabored respiratio n with good air movement Abdomen: soft, nontender Musculoskeletal: no deformity Male genitourinary: no SP or CVAT tender ness
[2024-09-12 11:52] VITALS: BP 155/94; PULSE 83; RESP 18; TEMP 36.4; O2SAT 93; BMI 23.7
--- OUTSIDE RECORDS SUMMARY | 2024-09-12 11:53 | XMS_ITS | Encounter Summary ---
Author Organization [facility] Address [address] [place] [address] Care Team Providers Care Print Manager Name Role Phone Aicha Moran MD Primary Care Provider [phone] Encounter Details Date Type Department Care Team (Latest Contact Info) Description 12/19/2005 Outpatient Historical [facility] [place] [address] [place] [address] Vimal Pozo, OPTICAL LAB TECHNICIAN [address] [facility] [address] [place] [address] Coronary Atherosclerosis of [place] Coronary Artery (Primary Dx); Unspecified Hypertensive 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; Impotence of Organic Origin Social History Tobacco Use Types Packs/Day Years Used Date Smoking Tobacco: Never Assessed Sex and Gender Information Value Date Recorded Sex Assigned at Not on file 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
--- OUTSIDE RECORDS SUMMARY | 2024-09-12 11:53 | XMS_ITS | Clinical Summary ---
Author Organization [facility] Address [address] Attn: Epic Prelude ADT MINNIE MAHARAJ [address] Care Team Providers Care Moisture Machine Tender Name Role Phone Aicha Moran MD Primary Care Provider [phone] Allergies Active Allergy Reactions Criticality Noted Date Comments Amitriptyline Confusion Low 10/10/2021 Atorvastatin Rash Low 05/09/2012 Lisinopril Cough High 11/17/2014 Losartan Other (See Comments) Medium 01/09/2017 Chest Tightness Nitroglycerin Confusion High 10/27/2015 Intolerant to nitrostat Rivaroxaban Other (See Comments) Low 10/10/2021 Black stools Medications amLODIPine (NORVASC) 5 mg tablet Take 5 mg by mouth daily. Morning 0 Active furosemide (LASIX) 40 mg tabletIndications :Essential hypertension TAKE 1 TABLET(40 MG) BY MOUTH DAILY 90 Tablet 3 8 Active isosorbide mononitrate (IMDUR) 30 mg Extended Release 24 hour tablet TAKE 1 TABLET BY MOUTH DAILY BORING MILL OPERATOR FOR METAL 90 Tablet 3 8 Active levothyroxine 50 mcg tablet Take 50 mcg by mouth daily in the morning. Active aspirin (ECOTRIN EC) 81 mg Tablet, Delayed Release (E.C.) Take 1 Tablet (81 mg) by mouth daily. 2 Active famotidine (PEPCID) 20 mg tablet Take 20 mg by mouth daily at bedtime. Active multivitamin (DAILY-KELLY) tablet Take 1 Tablet by mouth daily. Active docusate sodium (COLACE) 100 mg capsuleIndication s:Constipation, unspecified constipation type TAKE 1 CAPSULE(100 MG) BY MOUTH TWICE DAILY 60 Capsule 11 4 Active carvediloL (COREG) 25 mg tabletIndications :Ischemic cardiomyopathy,Co ngestive heart failure, unspecified HF chronicity, unspecified heart failure type (CMS/HCC),ASHD (arteriosclerotic heart disease),S/P CABG (coronary artery bypass graft),VF (ventricular fibrillation) (CMS/HCC),NSVT (nonsustained ventricular tachycardia) (CMS/HCC),Hyperte nsion, unspecified type TAKE 1 TABLET(25 MG) BY MOUTH TWICE DAILY WITH MEALS 180 Tablet 3 4 Active Active Problems Problem Noted Date Diagnosed Date Presence of cardiac resynchr onization therapy defibrillator (RIBBON HANKING MACHINE OPERATOR-D) 04/30/2023 CHF (congestive heart failure) 10/09/2022 History of stroke 09/13/2022 Dizziness 10/18/2021 Status post transcatheter ao rtic valve replacement (TAVR) using bioprosthesis 09/14/2021 Stage 3 chronic kidney disease 09/14/2021 Chronic combined systolic and diastolic CHF, [facility] A class 3 09/13/2021 Symptomatic advanced heart block 09/13/2021 Presence of permanent cardiac pacemaker 09/14/19 22 Transient complete heart block 08/25/2021 First degree atrioventricular block 08/25/2021 Near syncope 08/25/2021 Severe aortic stenosis 08/25/2021 Overview (08/28/2021): Added automatically from request for surgery [id number] MYKE (obstructive sleep apnea) 12/31/2016 Nonrheumatic aortic valve insufficiency 01/01/20 17 Chest pain 03/05/2013 Old DE (myocardial infarction) 12/10/2012 Ischemic cardiomyopathy 06/04/2012 Clostridium difficile colitis 01/04/2012 ANG (acute kidney injury) 12/30/2011 Gram-negative bacteremia 12/30/2011 Diverticulitis of sigmoid colon with microperfor ation 12/30/2011 Abdominal pain 12/29/2011 S/P CABG (coronary artery bypass graft) 02/18/20 11 ACS (acute coronary syndrome) 02/17/2011 Other chest pain 05/02/2010 Sensory peripheral neuropathy 01/18/2010 Hypercholesteremia 01/05/2009 ASHD (arteriosclerotic heart disease) 01/05/2009 Overview (07/07/2020): CABG 1996 CABG 04/2010- SVG to RCA PDA, SVG to ramus, SVG to LAD, (BOOTH to 1st diagonal from 1996 CABG intact) Encounter for long-term (current) use of other m edications 01/05/2009 Hiatal hernia 01/05/2009 Essential hypertension 01/05/2009 Resolved Problems Problem Noted Date Diagnosed Date Resolved Date S/P CABG 01/05/2009 02/17/2011 Overview (07/06/2020): 04/2010- SVG to RCA PDA, SVG to ramus, SVG to LAD, (BOOTH to1st diagonal from 1st CABG intact) Encounters Date Type Department Care Team Description 08/25/2024 External Device Data STL ABSTRACTION Provider, Abstract 07/29/2024 External Device Data STL ABSTRACTION Provider, Abstract 07/28/2024 External Device Data STL ABSTRACTION Provider, Abstract from Last 3 Months Family History Medical History Relation Name Comments Heart Disease Brother Healthy Father Hypertension Mother Relation Name Status Comments Brother Father Mother Social History Tobacco Use Types Packs/Day Years Used Date Smoking Tobacco: Never Smokeless Tobacco: Never Tobacco Cessation:Counseling Given: Not Answered Alcohol Use Standard Drinks/Week Comments No 0 (1 standard drink = 0.6 oz pur e alcohol) Feeling Safe Answer Date Recorded Are you in a relationship wi th someone who hurts you emotionally and/or physically? No 10/26/2022 Food Insecurity Answer Date Recorded Patient needs follow up regarding: Not on file 05/04/2023 Transportation Needs Answer Date Record ed Patient needs follow up regarding: Not on file 05/04/2023 Housing Stability Answer Date Recorded Patient needs follow up regarding: Not on file 05/04/2023 Utility Needs Answer Date Recorded Patient needs follow up regarding: Not on file 05/04/2023 Sex and Gender Information Value Date Recorded Sex Assigned at Not on file Legal Sex Male 3:13 PM CLAIMS SERVICE REPRESENTATIVE Gender Identity Not on file Sexual Orientation Not on file Last Filed Vital Signs Vital Sign Reading Time Taken Comments Blood Pressure 130/78 04/30/2023 12:58 PM CLAIMS SERVICE REPRESENTATIVE Pulse 79 04/30/2023 12:58 PM CLAIMS SERVICE REPRESENTATIVE Temperature 36.5 C (97.7 F) 10/26/2022 9:57 AM CDT Respiratory Rate 14 10/26/2022 12:00 PM CDT Oxygen Saturation 94% 10/26/2022 12:00 PM CDT Inhaled Oxygen Concentration - - Weight 84.8 kg (187 lb) 04/30/2023 12:58 PM CLAIMS SERVICE REPRESENTATIVE Height 185.4 cm (6' 1 ) 04/30/2023 12:58 PM CLAIMS SERVICE REPRESENTATIVE Body Mass Index 24.67 04/30/2023 12:58 PM CLAIMS SERVICE REPRESENTATIVE Plan of Treatment Health Maintenance Due Date Last Done Comments DTAP/TDAP/TD VACCINES (1 - Tdap) 09/05/1959 PNEUMOCOCCAL VACCINE 50+ YEARS (1 of 2 - PCV) 09/05/18 59 ZOSTER VACCINE (1 of 2) 09/05/1989 RSV VACCINE (60+ or ) (1 - 1-dose 75+ series) 09/05/2014 INFLUENZA VACCINE (#1) 2024 Medical Devices Implanted Type Area Bean Picker Machine Operator Device Identifier Shelf Expiration Date Model / Serial / Lot Closure Perclose Proglide [id number] - [id number] Implanted:Qty: 1 on 08/28/2021 by Boby Mccann MD at [facility] Closure Device Right: Groin RODRÍGUEZ- VASC DEVICE 05/09/2023 [id number] / / [id number] Closure Perclose Proglide 10686 - [id number] Implanted:Qty: 1 on 09/13/2021 at [facility] Closure Device Left: Groin RORDÍGUEZ- VASC DEVICE 05/09/2023 [id number] / / [id number] Closure Perclose Proglide 21244 - [id number] Implanted:Qty: 1 on 09/13/2021 at [facility] Closure Device Right: Groin RODRÍGUEZ- VASC DEVICE 05/09/2023 [id number] / / [id number] Closure Perclose Proglide 09066 - [id number] Implanted:Qty: 1 on 09/13/2021 at [facility] Closure Device Right: Groin RODRÍGUEZ- VASC DEVICE 05/09/2023 [id number] / / [id number] Retail Pharmacy Manager-D [place] Hf Quad Mri Df4 Surescan [id number] - [id number] Implanted:Qty: 1 on 10/26/2022 by Bell Gonzalez MD at [facility] Defibrillator Left: Chest MEDTRONIC- CARD RHYTHM MGMT 02/06/2024 [id number] / [id number] / [place] Ptfe Thck 1.6mmx2.5x2.5c m [id number] Implanted:Qty: 1 on 05/08/2010 Graft Heart CR BARD- ONEL VASC INC 02/07/2015 [id number] / / [id number] Description:Implant of BARD PTFE [place] used as pledgets to heart. Lead Pacing Capsure Fix Novus 52cm [id number] - Csc - [id number] Implanted:Qty: 1 on 08/25/2021 by Bell Gonzalez MD at [facility] Lead N/A: Heart MinekeyTRONIC- The Mad Video - OneRiot BUY 04/05/2023 5076-52 / [id number] / Lead Pacing Capsure Fix Novus 58cm [id number] - Csc - [id number] Implanted:Qty: 1 on 08/25/2021 by Bell Gonzalez MD at [facility] Lead N/A: Heart MEDTRONIC- The Mad Video - OneRiot BUY 06/03/2023 5076-58 / [id number] / Lead Sprint Quattro 62cm 6947m-62 - Csc - [id number] Implanted:Qty: 1 on 10/26/2022 at [facility] Lead Left: Chest MEDTRONIC- The Mad Video - BULK BUY 07/17/2024 [id number] / [id number] / Lead Attain Lt Heart Str 88cm Performa [id number] - [id number] Implanted:Qty: 1 on 10/26/2022 at [facility] Lead Left: Chest MEDTRONIC- The Mad Video - OneRiot BUY 06/14/2023 [id number] / [id number] / [id number] Lead Sprint Quattro 62cm 6947m-62 - Csc - [id number] Implanted:Qty: 1 on 10/26/2022 at [facility] Lead Left: Chest MEDTRONIC- CRM - BULK BUY 07/17/2024 [id number] / [id number] / Ring Vein Marking 10mm [id number] Implanted:Qty: 2 on 05/08/2010 Other Aorta TELEFLEX- PILL WECK CANDEI L P [id number] / / Description:Implant of vein ring(s) to aorta used to [place] proximal saphenous vein anastomosis site)s). Load No. [id number]. Pacemaker Shona Xt Surescan Dr Mri [id number] - [id number] Implanted:Qty: 1 on 08/25/2021 by Bell Gonzalez MD at [facility] Pacemaker Left: Chest MEDTRONIC- CRM - BULK BUY 02/05/2023 [id number] / [id number] / [id number] [id number] Transcath 29mm [id number] - [id number] Implanted:Qty: 1 on 09/13/2021 by Boby Mccann MD at [facility] Valve N/A: Heart [employer] [id number] / [id number] / [place] [address] [address] [id number] [place] [id number] Advance Directives For more information, please contact: [phone] Documents on File Type Date Recorded Patient Blade Filer Expl anation Advance Directive POA 03/27/2019 7:04 AM A dvance Directive POA * Full Code (Latest Code Status on File) Date Activated Date Inactivated Comments 10/26/2022 10:57 AM 10/26/2022 6:23 PM * Full Code Date Activated Date Inactivated Comments 10/26/2022 6:29 AM 10/26/2022 10:57 AM * Full Code Date Activated Date Inactivated Comments 10/26/2022 6:03 AM 10/26/2022 6:28 AM * Full Code Date Activated Date Inactivated Comments 09/13/2021 10:06 AM 09/15/2021 7:38 PM * Full Code Date Activated Date Inactivated Comments 09/13/2021 6:55 AM 09/13/2021 10:06 AM Care Teams Moisture Machine Tender Relationship Specialty Start Date End Date Aicha Moran MD [address] [facility] [address] [place] [address] PCP - General 12/07/03
--- OUTSIDE RECORDS SUMMARY | 2024-09-12 11:53 | XMS_ITS | Clinical Summary ---
Author Organization [facility] Address [address] [place] [address] Phone Care Team Providers Care Broker Assistant Name Role Phone Aicha Moran MD Primary Care Provider [phone] Allergies Active Allergy Reactions Criticality Noted Date Comments Atorvastatin Rash Low 05/09/2012 Lisinopril Cough High 11/17/2014 Losartan Other (See Comments) Medium 01/09/2017 Chest Tightness Nitroglycerin Confusion High 10/27/2015 Intolerant to nitrostat Medications amitriptyline (ELAVIL) 50 mg Oral tablet Take 50 mg by mouth daily at bedtime. Active aspirin (MADDY) 81 mg Oral Tab Take 81 mg by mouth daily. Active oxygen home delivery Administer in each nostril O2 at 2 l/m at night . 3 Active rosuvastatin (CRESTOR) 10 mg tabletIndications :Hypercholesterem ia Take 1 Tablet (10 mg) by mouth daily at bedtime. 90 Tablet 3 5 Active isosorbide mononitrate (IMDUR) 30 mg Extended Release 24 hour tablet TAKE 1 TABLET BY MOUTH DAILY MATTRESS SPRING ENCASER 90 Tablet 3 8 Active carvedilol (COREG) 6.25 mg tabletIndications :Essential hypertension TAKE 1 TABLET(6.25 MG) BY MOUTH TWICE DAILY WITH MEALS 180 Tablet 3 8 Active furosemide (LASIX) 40 mg tabletIndications :Essential hypertension TAKE 1 TABLET(40 MG) BY MOUTH DAILY 90 Tablet 3 8 Active tamsulosin (FLOMAX) 0.4 mg capsule Take 0.4 mg by mouth daily. Takes PRN Active indomethacin (INDOCIN) 25 mg capsule Take 25 mg by mouth 1 time daily as needed for Pain, Mild (Gout pains). Active amLODIPine (NORVASC) 5 mg tablet Take 5 mg by mouth daily. Morning Active OTHER Metoprolol, unknown dose amount, oral, daily. Prescribed by Dr. Coronado in [place], [place]. Active rivaroxaban (Xarelto) 20 mg Tablet Take 20 mg by mouth daily with supper. Active Active Problems Problem Noted Date Diagnosed Date MYKE (obstructive sleep apnea) 12/31/2016 Nonrheumatic aortic valve insufficiency 01/01/20 17 Chest pain 03/05/2013 Old ME (myocardial infarction) 12/10/2012 Ischemic cardiomyopathy 06/04/2012 Clostridium difficile colitis 01/04/2012 Diverticulitis of sigmoid colon with microperfor ation 12/30/2011 Gram-negative bacteremia 12/30/2011 ANG (acute kidney injury) 12/30/2011 Abdominal pain 12/29/2011 Chest pain 12/28/2011 ACS (acute coronary syndrome) 02/17/2011 S/P CABG (coronary artery bypass graft) 02/18/20 11 Other chest pain 05/02/2010 Sensory peripheral neuropathy 01/18/2010 Essential hypertension 01/05/2009 Hypercholesteremia 01/05/2009 Encounter for long-term (current) use of other m edications 01/05/2009 ASHD (arteriosclerotic heart disease) 01/05/2009 Overview (02/17/2011): CABG 1996 CABG 04/2010- SVG to RCA PDA, SVG to ramus, SVG to LAD, (BOOTH to 1st diagonal from 1996 CABG intact) Hiatal hernia 01/05/2009 Resolved Problems Problem Noted Date Diagnosed Date Resolved Date S/P CABG 01/05/2009 02/17/2011 Overview (02/17/2011): 04/2010- SVG to RCA PDA, SVG to ramus, SVG to LAD, (BOOTH to1st diagonal from 1st CABG intact) Family History Medical History Relation Name Comments Heart Disease Brother Healthy Father Hypertension Mother Relation Name Status Comments Brother Father Mother Social History Tobacco Use Types Packs/Day Years Used Date Smoking Tobacco: Never Smokeless Tobacco: Never Tobacco Cessation:Counseling Given: No Alcohol Use Standard Drinks/Week Comments No 0 (1 standard drink = 0.6 oz pur e alcohol) Sex and Gender Information Value Date Recorded Sex Assigned at Not on file Legal Sex Male 3:50 AM SILVICULTURIST Gender Identity Not on file Sexual Orientation Not on file Occupation Industry Job Start Date Job End Date Not on file Not on file Not on file Not on file Last Filed Vital Signs Vital Sign Reading Time Taken Comments Blood Pressure 130/70 04/27/2019 10:42 AM SILVICULTURIST Pulse 64 04/27/2019 10:42 AM SILVICULTURIST Temperature 36.8 C (98.3 F) 03/27/2019 7:55 AM SILVICULTURIST Respiratory Rate 18 03/27/2019 7:55 AM SILVICULTURIST Oxygen Saturation 94% 03/27/2019 3:00 PM SILVICULTURIST Inhaled Oxygen Concentration - - Weight 94.3 kg (208 lb) 04/27/2019 10:42 AM SILVICULTURIST Height 185.4 cm (6' 1 ) 04/27/2019 10:42 AM SILVICULTURIST Body Mass Index 27.44 04/27/2019 10:42 AM SILVICULTURIST Plan of Treatment Health Maintenance Due Date Last Done Comments DTAP/TDAP/TD VACCINES (1 - Tdap) 09/05/1959 PNEUMOCOCCAL VACCINE 50+ YEARS (1 of 1 - PCV) 09/05/18 90 ZOSTER VACCINE (1 of 2) 09/05/1989 RSV VACCINE (60+ or ) (1 - 1-dose 75+ series) 09/05/2014 INFLUENZA VACCINE (#1) 2024 Medical Devices Implanted Type Area Sprayer Automatic Spray Machine Device Identifier Shelf Expiration Date Model / Serial / Lot [place] Ptfe Thck 1.6mmx2.5x2.5cm [id number] Implanted:Qty: 1 on 05/08/[address] [facility] Graft Heart CR BARD- ONEL VASC INC 02/07/2015 [id number] / / [id number] Description:Implant of BARD PTFE [place] used as pledgets to heart. Ring Vein Marking 10mm [id number] Implanted:Qty: 2 on 05/08/[address] [facility] Other Aorta TELEFLEX- PILL WECK CANDIE L P [id number] / / Description:Implant of vein ring(s) to aorta used to [place] proximal saphenous vein anastomosis site)s). Load No. [id number]. Insurance [address] [place] [address] MEDICARE PART A AND B [facility] Advance Directives For more information, please contact: [phone] Documents on File Type Date Recorded Patient Occasional Babysitter Expl anation Advance Directive POA 03/27/2019 7:04 AM A dvance Directive POA * Full Code (Latest Code Status on File) Date Activated Date Inactivated Comments 03/27/2019 1:32 PM 03/27/2019 6:35 PM * Full Code Date Activated Date Inactivated Comments 03/27/2019 7:08 AM 03/27/2019 1:32 PM * Full Code Date Activated Date Inactivated Comments 01/07/2012 7:19 AM 01/17/2012 7:41 PM * Full Code Date Activated Date Inactivated Comments 01/04/2012 9:01 AM 01/07/2012 7:19 AM * Full Code Date Activated Date Inactivated Comments 12/29/2011 12:31 PM 01/04/2012 9:01 AM Care Teams Broker Assistant Relationship Specialty Start Date End Date Aicha Moran MD [address] [facility] [address] [place] [id number] PCP - General 12/07/03
--- OUTSIDE RECORDS SUMMARY | 2024-09-12 11:53 | XMS_ITS | Encounter Summary ---
Author Organization [facility] Address [address] [place] [address] Care Team Providers Care Crm Marketing Analyst Name Role Phone Aicha Moran MD Primary Care Provider [phone] Encounter Details Date Type Department Care Team (Latest Contact Info) Description 07/18/2000 Outpatient Historical [facility] Cardiology- [place] [address] [place] [address] Rusty Argueta MD [address] [facility] [address] [place] [address] Old myocardial infarct (Primary Dx); Other specified forms of chronic ischemic heart disease; Chronic ischemic heart disease, unspecified; Coronary atherosclerosis of [place] coronary artery Social History Tobacco Use Types Packs/Day Years Used Date Smoking Tobacco: Never Assessed Sex and Gender Information Value Date Recorded Sex Assigned at Not on file Legal Sex Male 3:50 AM SPECIFICATIONS CHECKER Gender Identity Not on file Sexual Orientation Not on file documented as of this encounter Plan of Treatment Not on file documented as of this encounter Visit Diagnoses Diagnosis Old myocardial infarct- Primary Old myocardial infarction Other specified forms of chronic ischemic heart disease Chronic ischemic heart disease, unspecified Coronary atherosclerosis of [place] coronary artery documented in this encounter Care Teams Crm Marketing Analyst Relationship Specialty Start Date End Date Aicha Moran MD [address] [facility] [address] [place] [address] PCP - General 12/07/03 documented as of this encounter
--- OUTSIDE RECORDS SUMMARY | 2024-09-12 11:53 | XMS_ITS | Encounter Summary ---
Author Organization [facility] Address [address] [place] [address] Care Team Providers Care Fire Prevention Forester Name Role Phone Aicha Moran MD Primary Care Provider [phone] Encounter Details Date Type Department Care Team (Latest Contact Info) Description 12/07/2003 Outpatient Historical [facility] Endoscopy [place] [address] [facility] [address] [place] [phone] Rusty Cooper MD [address] [facility] [address] [place] [address] ESOPHAGEAL STRICTURE (Primary Dx) Social History Tobacco Use Types Packs/Day Years Used Date Smoking Tobacco: Never Assessed Sex and Gender Information Value Date Recorded Sex Assigned at Not on file Legal Sex Male 3:50 AM WIRE WEAVING LOOM SETTER Gender Identity Not on file Sexual Orientation Not on file documented as of this encounter Plan of Treatment Not on file documented as of this encounter Visit Diagnoses Diagnosis Stricture and stenosis of esophagus- Primary documented in this encounter Care Teams Fire Prevention Forester Relationship Specialty Start Date End Date Aicha Moran MD [address] [facility] [address] [place] [phone] PCP - General 12/07/03 documented as of this encounter
--- OUTSIDE RECORDS SUMMARY | 2024-09-12 11:53 | XMS_ITS | Encounter Summary ---
Author Organization [facility] Address [address] [place] [address] Care Team Providers Care Extract Operator Name Role Phone Aicha Moran MD Primary Care Provider [phone] Encounter Details Date Type Department Care Team (Latest Contact Info) Description 12/07/2003 Outpatient [facility] [place] [address] Rusty Cooper MD [address] [facility] [address] [place] [address] GASTROINTEST HEMORR NOS (Primary Dx); GASTRITIS NEC W/O HEMORRH; Esophageal stricture; Diaphragmatic hernia Social History Tobacco Use Types Packs/Day Years Used Date Smoking Tobacco: Never Assessed Sex and Gender Information Value Date Recorded Sex Assigned at Not on file Legal Sex Male 3:50 AM CASINO CASHIER MANAGER Gender Identity Not on file Sexual Orientation Not on file documented as of this encounter Plan of Treatment Not on file documented as of this encounter Visit Diagnoses Diagnosis Hemorrhage of gastrointestinal tract, unspecified- Primary Other specified gastritis without mention of hemorrhage Esophageal stricture Stricture and stenosis of esophagus Diaphragmatic hernia Diaphragmatic hernia without mention of obstruction or gangrene documented in this encounter Care Teams Extract Operator Relationship Specialty Start Date End Date Aicha Moran MD [address] [facility] [address] [place] [address] PCP - General 9/28/04 documented as of this encounter
--- OUTSIDE RECORDS SUMMARY | 2024-09-12 11:53 | XMS_ITS | Encounter Summary ---
Author Organization [facility] Address [address] [place] [address] Care Team Providers Care Cutting Machine Operator Name Role Phone Aicha Moran MD Primary Care Provider [phone] Encounter Details Date Type Department Care Team (Late st Contact Info) Description 10/03/2003 Inpatient Historical [facility] Rusty Argueta MD [address] [facility] [address] [place] [address] SAMIA-HARRIS SYNDROME (Primary Dx) Social History Tobacco Use Types Packs/Day Years Used Date Smoking Tobacco: Never Assessed Sex and Gender Information Value Date Recorded Sex Assigned at Not on file Legal Sex Male 3:50 AM MEASURING MACHINE TENDER Gender Identity Not on file Sexual Orientation Not on file documented as of this encounter Plan of Treatment Not on file documented as of this encounter Visit Diagnoses Diagnosis Gastroesophageal laceration-hemorrhage syndrome- Primary documented in this encounter Care Teams Cutting Machine Operator Relationship Specialty Start Date End Date Aicha Moran MD [address] [facility] [address] [place] [address] PCP - General 12/07/03 documented as of this encounter
--- OUTSIDE RECORDS SUMMARY | 2024-09-12 11:53 | XMS_ITS | Encounter Summary ---
Author Organization [facility] Address [address] [place] [address] Care Team Providers Care Pack Mule Worker Name Role Phone Aicha Moran MD Primary Care Provider [phone] Encounter Details Date Type Department Care Team (Late st Contact Info) Description 08/13/2002 Outpatient Historical [facility] Cardiology- [place] [address] [place] [address] Rusty Argueta MD [address] [facility] [address] [place] [address] CHR ISCHEMIC HRT DIS NEC (Primary Dx); Aortocoronary bypass; Pure hypercholesterolem; PAINFUL RESPIRATION Social History Tobacco Use Types Packs/Day Years Used Date Smoking Tobacco: Never Assessed Sex and Gender Information Value Date Recorded Sex Assigned at Not on file Legal Sex Male 3:50 AM MATERIAL EXPEDITER Gender Identity Not on file Sexual Orientation Not on file documented as of this encounter Plan of Treatment Not on file documented as of this encounter Visit Diagnoses Diagnosis Other specified forms of chronic ischemic heart disease- Primary Aortocoronary bypass Postsurgical aortocoronary bypass status Pure hypercholesterolem Pure hypercholesterolemia Painful respiration documented in this encounter Care Teams Pack Mule Worker Relationship Specialty Start Date End Date Aicha Moran MD [address] [facility] [address] [place] [address] PCP - General 12/07/03 documented as of this encounter
--- OUTSIDE RECORDS SUMMARY | 2024-09-12 11:53 | XMS_ITS | Encounter Summary ---
Author Organization [facility] Address [address] [place] [address] Care Team Providers Care Contracting Support Specialist Name Role Phone Aicha Moran MD Primary Care Provider [phone] Encounter Details Date Type Department Care Team (Latest Contact Info) Description 07/21/2001 Outpatient Historical [facility]- [place] [address] [place] [address] Rusty Argueta MD [address] [facility] [address] [place] [address] CHR ISCHEMIC HRT DIS NEC (Primary Dx); Aortocoronary bypass; CORON ATHEROSCL [place] CORON VESSEL; Pure hypercholesterolem Social History Tobacco Use Types Packs/Day Years Used Date Smoking Tobacco: Never Assessed Sex and Gender Information Value Date Recorded Sex Assigned at Not on file Legal Sex Male 3:50 AM 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 Gender Identity Not on file Sexual Orientation Not on file documented as of this encounter Plan of Treatment Not on file documented as of this encounter Visit Diagnoses Diagnosis 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
--- OUTSIDE RECORDS SUMMARY | 2024-09-12 11:53 | XMS_ITS | Encounter Summary ---
Author Organization [facility] Address [address] [place] [address] Care Team Providers Care Appliance Fixer Name Role Phone Aicha Moran MD Primary Care Provider [phone] Encounter Details Date Type Department Care Team (Late st Contact Info) Description 02/17/2007 Emergency [facility] Emergency Department [address] [place] [phone] Rohit Samson MD NO ADDRESS ON FILE Cardiomegaly; Elevated Blood Pressure Reading without Diagnosis of Hypertension; Cor Athrscl-Uns Vessel; Postsurgical Aortocoronary Bypass Status; Encounter for Long-Term (Current) Use of Aspirin; Encounter for Long-Term (Current) Use of Other Medications Social History Tobacco Use Types Packs/Day Years Used Date Smoking Tobacco: Never Assessed Sex and Gender Information Value Date Recorded Sex Assigned at Not on file Legal Sex Male 3:50 AM BOAT TENDER Gender Identity Not on file Sexual Orientation Not on file documented as of this encounter Plan of Treatment Not on file documented as of this encounter Procedures Procedure Name Priority Date/Time Associated Diagnosis Comments KETONE, QUALITATIVE, URINE Routine 02/05/2007 12:50 AM BOAT TENDER URINALYSIS W/REFLEX MICROSCOPIC Routine 02/05/2007 12:50 AM BOAT TENDER CARDIAC ENZYMES Routine 02/04/2007 11:55 PM BOAT TENDER CBC WITH DIFFERENTIAL Routine 02/04/2007 11:55 PM BOAT TENDER PTT Routine 02/04/2007 11:55 PM BOAT TENDER PROTIME-INR Routine 02/04/2007 11:55 PM BOAT TENDER BASIC METABOLIC PANEL Routine 02/04/2007 11:55 PM BOAT TENDER documented in this encounter Results * ACETONE QUALITATIVE, URINE (02/05/2007 12:50 AM BOAT TENDER) KETONES UA Negative Negative INTERFACE SYSTEM 02/05/2007 12:5 0 AM BOAT TENDER Rohit Samson MD URINE ORDERABLES Edited Performing Organization Address [facility] Phone Number INTERFACE SYSTEM Refer to clinic/hospital department * URINALYSIS (02/05/2007 12:50 AM BOAT TENDER) COLOR UA Yellow Straw INTERFACE SYSTEM CLARITY UA Clear Clear INTERFACE SYSTEM LEUKOCYTE ESTERASE UA NEGATIVE NEGATIVE INTERFACE SYSTEM NITRITE UA NEGATIVE NEGATIVE INTERFACE SYSTEM PH UA 6.0 5.0 - 9.0 INTERFACE SYSTEM PROTEIN UA NEGATIVE NEGATIVE INTERFACE SYSTEM GLUCOSE UA NEGATIVE NEGATIVE INTERFACE SYSTEM UROBILINOGEN UA 0.2 0.2 INTE RFACE SYSTEM BILIRUBIN UA NEGATIVE NEGATIVE INTERFA CE SYSTEM BLOOD UA NEGATIVE NEGATIVE INTERFACE SYSTEM SPECIFIC GRAVITY UA 1.025 <=1.005 INTERFACE SYSTEM MICRO EXAM No No INTERFACE SYSTEM 02/05/2007 12:5 0 AM BOAT TENDER Rohit Samson MD URINE ORDERABLES Edited Performing Organization Address [facility] Phone Number INTERFACE SYSTEM Refer to clinic/hospital department * (ABNORMAL) CBC WITH DIFFERENTIAL (02/04/2007 11:55 PM BOAT TENDER) WBC 6.8 4.8 - 10.8 K/ul INTERFACE SYSTEM RBC 4.92 4.60 - 6.20 Mil/ul INTERFACE SYSTEM HEMOGLOBIN 16.4 14.0 - 18.0 g/dL INTERFACE SYSTEM HEMATOCRIT 45.6 41.0 - 53.0 % INTERFACE SYSTEM MCV 92.7 84.0 - 103.0 Fl INTERFACE SYSTEM MCH 33.3 27.0 - 34.0 pg INTERFACE SYSTEM MCHC 36.0(H) 30.0 - 35.0 g/dL INTERFACE SYSTEM RDW 12.1 11.0 - 14.5 % INTERFACE SYSTEM PLATELETS 175 140 - 440 K/ul INTERFACE SYSTEM MPV 11.4 8.9 - 12.8 Fl INTERFACE SYSTEM NEUTROPHILS 78.6(H) 42.2 - 75.2 % INTERFACE SYSTEM LYMPHOCYTES 11.0(L) 24.0 - 44.0 % INTERFACE SYSTEM MONOCYTES 9.4 2.0 - 10.0 % INTERFACE SYSTEM EOSINOPHILS 0.7 0.0 - 7.0 % INTERFACE SYSTEM BASOPHILS 0.3 0.0 - 1.0 % INTERFACE SYSTEM NEUTROPHIL ABSOLUTE 5.3 2.0 - 8.0 K/ul INTERFACE SYSTEM LYMPHOCYTE ABSOLUTE 0.8(L) 1.2 - 4.0 K/ul INTERFACE SYSTEM MONOCYTE ABSOLUTE 0.6 0.1 - 0.6 K/ul INTERFACE SYSTEM EOSINOPHIL ABSOLUTE 0.1 0.0 - 0.7 K/ul INTERFACE SYSTEM BASOPHILS ABSOLUTE 0.0 0.0 - 0.2 K/ul INTERFACE SYSTEM 02/04/2007 11:5 5 PM BOAT TENDER Rohit Samson MD HEMATOLOGY ORDERABLES Edit ed Performing Organization Address [facility] de Phone Number INTERFACE SYSTEM Refer to clinic/hospital department * PTT (02/04/2007 11:55 PM BOAT TENDER) PTT 28.5 21.6 - 35.6 Secs INTERFACE SYSTEM Comment: Therapeutic Range: Hi-level PE/DVT heparin protocol 80.1 -95.0 sec Lo-level PE/DVT heparin protocol 67.1 - 80.0 sec Cardiac Heparin Protocol 67.1 - 85.0 sec Neuro Heparin Protocol 67.1 - 80.0 sec As of 02/14/2006 note change in APTT Normal Range. 02/04/2007 11:5 5 PM BOAT TENDER Rohit Samson MD HEMATOLOGY ORDERABLES Edit ed INTERFACE SYSTEM Refer to clinic/hospital department * PROTIME-INR (02/04/2007 11:55 PM BOAT TENDER) PROTIME 14.7 13.0 - 15.7 Secs INTERFACE SYSTEM Comment: As of 05 note change in normal range. INR 1.0 INTERFACE SYSTEM Comment: Expected Values for INR: DVT/PE Goal INR 2.5; range 2.0 - 3.0 Valve Replacement Tissue Goal INR 2.5; range 2.0 - 3.0 Mechanical Goal INR 3.0; range 2.5 - 3.5 POST-MT Goal INR 2.5; range 2.0 - 3.0 or Goal 3.0; range 2.5 - 3.5 Atrial Fibrillation Goal INR 2.5; range 2.0 - 3.0 Ischemic Stroke Goal INR 2.5; range 2.0 - 3.0 For additional information see Guidelines for Anticoagulation available from the pharmacy [facility]. 02/04/2007 11:5 5 PM BOAT TENDER Rohit Samson MD HEMATOLOGY ORDERABLES Edit ed Performing Organization Address [facility] Phone Number INTERFACE SYSTEM Refer to clinic/hospital department * (ABNORMAL) BASIC METABOLIC PANEL (02/04/2007 11:55 PM BOAT TENDER) GLUCOSE 112(H) 70 - 110 mg/dL INTERFACE SYSTEM BUN 16 9 - 20 mg/dL INTERFACE SYSTEM CREATININE 0.9 0.7 - 1.5 mg/dL INTERFACE SYSTEM SODIUM 138 136 - 145 mEq/L INTERFACE SYSTEM POTASSIUM 3.6 3.5 - 5.0 mEq/L INTERFACE SYSTEM CHLORIDE 105 95 - 110 mEq/L INTERFACE SYSTEM CO2 24 22 - 32 mmol/l INTERFACE SYSTEM CALCIUM 10.0 8.4 - 10.5 mg/dL INTERFACE SYSTEM ANION GAP 13 9 - 20 mEq/L INTERFACE SYSTEM OSMOLALITY, CALCULATED 285 275 - 295 mOsm/Kg INTERFACE SYSTEM 02/04/2007 11:5 5 PM BOAT TENDER Rohit Samson MD CHEMISTRY ORDERABLES Edite d Performing Organization Address [facility] Co de Phone Number INTERFACE SYSTEM Refer to clinic/hospital department * CARDIAC ENZYMES (02/04/2007 11:55 PM BOAT TENDER) TROPONIN I <0.1 0.0 - 1.3 ng/mL INTERFACE SYSTEM Comment: As of 06 the Troponin Reference Range has changed from 0.0-1.5 ng/ml to 0.0- 1.3 ng/ml due to a change in testing methodology. CKMB 2.4 0.0 - 5.0 ng/mL INTERFACE SYSTEM 02/04/2007 11:5 5 PM BOAT TENDER us Rohit Samson MD CHEMISTRY ORDERABLES Edite d INTERFACE SYSTEM Refer to clinic/hospital department documented in this encounter Visit Diagnoses Diagnosis Cardiomegaly Elevated blood pressure reading without diagnosis of hypertension Coronary atherosclerosis of unspecified type of vessel, afognak or graft Postsurgical aortocoronary bypass status Encounter for long-term (current) use of aspirin Encounter for long-term (current) use of other medications documented in this encounter Care Teams Appliance Fixer Relationship Specialty Start Date End Date Aicha Moran MD [address] [facility] [address] [place] [phone] PCP - General 12/07/03 documented as of this encounter
--- OUTSIDE RECORDS SUMMARY | 2024-09-12 11:53 | XMS_ITS | Encounter Summary ---
Author Organization [facility] Address [address] [place] [address] Care Team Providers Care Vegetable Scullion Name Role Phone Aicha Moran MD Primary Care Provider Encounter Details Date Type Department Care Team (Late st Contact Info) Description 03/22/2007 Outpatient Historical [facility] IN BED Ed, Physician NO ADDRESS ON FILE Jose Enrique Carreon MD [address] [place] [id number] Renetta Ugarte DO NO ADDRESS ON FILE Gaurang Stephenson MD NO ADDRESS ON FILE Unspecified, Hemorrhage of Gastrointestinal Tract Social History Tobacco Use Types Packs/Day Years Used Date Smoking Tobacco: Never Assessed Sex and Gender Information Value Date Recorded Sex Assigned at Not on file Legal Sex Male 3:50 AM PASTE THINNER Gender Identity Not on file Sexual Orientation Not on file documented as of this encounter Plan of Treatment Not on file documented as of this encounter Procedures Procedure Name Priority Date/Time Associated Diagnosis Comments CBC WITH DIFFERENTIAL Routine 03/24/2007 3:03 AM PASTE THINNER PT AND APTT Routine 03/23/2007 1:08 AM PASTE THINNER CBC WITH DIFFERENTIAL Routine 03/23/2007 1:08 AM PASTE THINNER COMPREHENSIVE METABOLIC PANEL Routine 03/23/2007 1:08 AM PASTE THINNER documented in this encounter Results * (ABNORMAL) CBC WITH DIFFERENTIAL (03/24/2007 3:03 AM PASTE THINNER) WBC 8.6 4.8 - 10.8 K/ul INTERFACE SYSTEM RBC 4.18(L) 4.60 - 6.20 Mil/ul INTERFACE SYSTEM HEMOGLOBIN 13.5(L) 14.0 - 18.0 g/dL INTERFACE SYSTEM HEMATOCRIT 39.3(L) 41.0 - 53.0 % INTERFACE SYSTEM MCV 94.0 84.0 - 103.0 Fl INTERFACE SYSTEM MCH 32.3 27.0 - 34.0 pg INTERFACE SYSTEM MCHC 34.4 30.0 - 35.0 g/dL INTERFACE SYSTEM RDW 12.5 11.0 - 14.5 % INTERFACE SYSTEM PLATELETS 138(L) 140 - 440 K/ul INTERFACE SYSTEM MPV 11.3 8.9 - 12.8 Fl INTERFACE SYSTEM NEUTROPHILS 72.4 42.2 - 75.2 % INTERFACE SYSTEM LYMPHOCYTES 12.5(L) 24.0 - 44.0 % INTERFACE SYSTEM MONOCYTES 12.9(H) 2.0 - 10.0 % INTERFACE SYSTEM EOSINOPHILS 2.0 0.0 - 7.0 % INTERFACE SYSTEM BASOPHILS 0.2 0.0 - 1.0 % INTERFACE SYSTEM NEUTROPHIL ABSOLUTE 6.2 2.0 - 8.0 K/ul INTERFACE SYSTEM LYMPHOCYTE ABSOLUTE 1.1(L) 1.2 - 4.0 K/ul INTERFACE SYSTEM MONOCYTE ABSOLUTE 1.1(H) 0.1 - 0.6 K/ul INTERFACE SYSTEM EOSINOPHIL ABSOLUTE 0.2 0.0 - 0.7 K/ul INTERFACE SYSTEM BASOPHILS ABSOLUTE 0.0 0.0 - 0.2 K/ul INTERFACE SYSTEM 03/24/2007 3:03 AM PASTE THINNER us Patience C Shanel DO HEMATOLOGY ORDERABLES Edite d INTERFACE SYSTEM Refer to clinic/hospital department * (ABNORMAL) COMPREHENSIVE METABOLIC PANEL (03/23/2007 1:08 AM PASTE THINNER) GLUCOSE 149(H) 70 - 110 mg/dL INTERFACE SYSTEM BUN 24(H) 9 - 20 mg/dL INTERFACE SYSTEM CREATININE 1.2 0.7 - 1.5 mg/dL INTERFACE SYSTEM SODIUM 142 136 - 145 mEq/L INTERFACE SYSTEM POTASSIUM 4.0 3.5 - 5.0 mEq/L INTERFACE SYSTEM CHLORIDE 111(H) 95 - 110 mEq/L INTERFACE SYSTEM CO2 24 22 - 32 mmol/l INTERFACE SYSTEM CALCIUM 9.4 8.4 - 10.5 mg/dL INTERFACE SYSTEM TOTAL PROTEIN 7.2 6.3 - 8.2 g/dL INTERFACE SYSTEM ALBUMIN 4.4 3.5 - 5.0 g/dL INTERFACE SYSTEM ALKALINE PHOSPHATASE 67 25 - 100 U/L INTERFACE SYSTEM AST 26 8 - 33 U/L INTERFACE SYSTEM ALT 27 4 - 36 IU/L INTERFACE SYSTEM BILIRUBIN TOTAL 0.7 0.3 - 1.2 mg/dL INTERFACE SYSTEM GLOBULIN (CALC) 2.8 2.4 - 3.9 g/dL INTERFACE SYSTEM ALBUMIN/GLOBULIN RATIO 1.6 1.0 - 2.3 INTERFACE SYSTEM ANION GAP 11 9 - 20 mEq/L INTERFACE SYSTEM OSMOLALITY, CALCULATED 298(H) 275 - 295 mOsm/Kg INTERFACE SYSTEM 03/23/2007 1:08 AM PASTE THINNER Jose Enrique Carreon MD CHEMISTRY ORDERABLES Edited INTERFACE SYSTEM Refer to clinic/hospital department * PT AND APTT (03/23/2007 1:08 AM PASTE THINNER) PROTIME 14.4 12.8 - 15.8 Secs INTERFACE SYSTEM Comment: As of 2007 note change in normal range. INR 1.0 INTERFACE SYSTEM Comment: Expected Values for INR: DVT/PE Goal INR 2.5; range 2.0 - 3.0 Valve Replacement Tissue Goal INR 2.5; range 2.0 - 3.0 Mechanical Goal INR 3.0; range 2.5 - 3.5 POST-CT Goal INR 2.5; range 2.0 - 3.0 or Goal 3.0; range 2.5 - 3.5 Atrial Fibrillation Goal INR 2.5; range 2.0 - 3.0 Ischemic Stroke Goal INR 2.5; range 2.0 - 3.0 For additional information see Guidelines for Anticoagulation available from the pharmacy [facility] PTT 29.1 21.6 - 35.6 Secs INTERFACE SYSTEM Comment: Therapeutic Range: Hi-level PE/DVT heparin protocol 80.1 -95.0 sec Lo-level PE/DVT heparin protocol 67.1 - 80.0 sec Cardiac Heparin Protocol 67.1 - 85.0 sec Neuro Heparin Protocol 67.1 - 80.0 sec As of 02/14/2006 note change in APTT Normal Range. 03/23/2007 1:08 AM PASTE THINNER Jose Enrique aCrreon MD HEMATOLOGY ORDERABLES Edited INTERFACE SYSTEM Refer to clinic/hospital department * (ABNORMAL) CBC WITH DIFFERENTIAL (03/23/2007 1:08 AM PASTE THINNER) WBC 14.7(H) 4.8 - 10.8 K/ul INTERFACE SYSTEM RBC 5.01 4.60 - 6.20 Mil/ul INTERFACE SYSTEM HEMOGLOBIN 16.4 14.0 - 18.0 g/dL INTERFACE SYSTEM HEMATOCRIT 46.1 41.0 - 53.0 % INTERFACE SYSTEM MCV 92.0 84.0 - 103.0 Fl INTERFACE SYSTEM MCH 32.7 27.0 - 34.0 pg INTERFACE SYSTEM MCHC 35.6(H) 30.0 - 35.0 g/dL INTERFACE SYSTEM RDW 12.2 11.0 - 14.5 % INTERFACE SYSTEM PLATELETS 157 140 - 440 K/ul INTERFACE SYSTEM MPV 11.8 8.9 - 12.8 Fl INTERFACE SYSTEM NEUTROPHILS 86.4(H) 42.2 - 75.2 % INTERFACE SYSTEM LYMPHOCYTES 5.9(L) 24.0 - 44.0 % INTERFACE SYSTEM MONOCYTES 7.6 2.0 - 10.0 % INTERFACE SYSTEM BASOPHILS 0.1 0.0 - 1.0 % INTERFACE SYSTEM NEUTROPHIL ABSOLUTE 12.7(H) 2.0 - 8.0 K/ul INTERFACE SYSTEM LYMPHOCYTE ABSOLUTE 0.9(L) 1.2 - 4.0 K/ul INTERFACE SYSTEM MONOCYTE ABSOLUTE 1.1(H) 0.1 - 0.6 K/ul INTERFACE SYSTEM BASOPHILS ABSOLUTE 0.0 0.0 - 0.2 K/ul INTERFACE SYSTEM 03/23/2007 1:08 AM PASTE THINNER Jose Enrique Carreon MD HEMATOLOGY ORDERABLES Edited INTERFACE SYSTEM Refer to clinic/hospital department documented in this encounter Visit Diagnoses Diagnosis Hemorrhage of gastrointestinal tract, unspecified documented in this encounter Care Teams Vegetable Scullion Relationship Specialty Start Date End Date Aicha Moran MD [address] [facility] [address] [place] [phone] PCP - General 12/07/03 documented as of this encounter
--- OUTSIDE RECORDS SUMMARY | 2024-09-12 11:53 | XMS_ITS | Encounter Summary ---
Author Organization [facility] Address [address] [place] [address] Care Team Providers Care Manager Entry Name Role Phone Aicha Moran MD Primary Care Provider [phone] Encounter Details Date Type Department Care Team (Late st Contact Info) Description 02/24/2007 Outpatient Historical [facility] Cardiology- [place] [address] [place] [address] Vimal Pozo, LOCKSTITCH LINING SETTER [address] [facility] [address] [place] [address] Social History Tobacco Use Types Packs/Day Years Used Date Smoking Tobacco: Never Assessed Sex and Gender Information Value Date Recorded Sex Assigned at Not on file Legal Sex Male 3:50 AM STATUS CONTROLLER Gender Identity Not on file Sexual Orientation Not on file documented as of this encounter Plan of Treatment Not on file documented as of this encounter Visit Diagnoses Not on filedocumented in this encounter Care Teams Manager Entry Relationship Specialty Start Date End Date Aicha Moran MD [address] [facility] [address] [place] [address] PCP - General 12/07/03 documented as of this encounter
--- OUTSIDE RECORDS SUMMARY | 2024-09-12 11:53 | XMS_ITS | Encounter Summary ---
Author Organization [facility] Address [address] [place] [address] Care Team Providers Care Oracle Software Engineer Name Role Phone Aicha Moran MD Primary Care Provider [phone] Encounter Details Date Type Department Care Team (Latest Contact Info) Description 08/16/2003 Outpatient Historical [facility] Cardiology- [place] [address] [place] [address] Rusty Argueta MD [address] [facility] [address] [place] [address] CHR ISCHEMIC HRT DIS NEC (Primary Dx); CORON ATHEROSCL [place] CORON VESSEL; Pure hypercholesterolem Social History Tobacco Use Types Packs/Day Years Used Date Smoking Tobacco: Never Assessed Sex and Gender Information Value Date Recorded Sex Assigned at Not on file Legal Sex Male 3:50 AM 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 DIRECTOR Gender Identity Not on file Sexual Orientation Not on file documented as of this encounter Plan of Treatment Not on file documented as of this encounter Visit Diagnoses Diagnosis 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
--- OUTSIDE RECORDS SUMMARY | 2024-09-12 11:53 | XMS_ITS | Encounter Summary ---
Author Organization [facility] Address [address] [place] [address] Care Team Providers Care Resaw Machine Operator Name Role Phone Aicha Moran MD Primary Care Provider [phone] Encounter Details Date Type Department Care Team (Latest Contact Info) Description 11/15/2004 Outpatient Historical [facility] Cardiology- [place] [address] [place] [address] Rusty Argueta MD [address] [facility] [address] [place] [address] CHR ISCHEMIC HRT DIS NEC (Primary Dx); Aortocoronary bypass; CORON ATHEROSCL [place] CORON VESSEL; Pure hypercholesterolem Social History Tobacco Use Types Packs/Day Years Used Date Smoking Tobacco: Never Assessed Sex and Gender Information Value Date Recorded Sex Assigned at Not on file Legal Sex Male 3:50 AM PRECIPITATION EQUIPMENT TENDER Gender Identity Not on file Sexual Orientation Not on file documented as of this encounter Plan of Treatment Not on file documented as of this encounter Visit Diagnoses Diagnosis 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
--- OUTSIDE RECORDS SUMMARY | 2024-09-12 11:54 | XMS_ITS | Patient Health Record ---
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 Name Role Phone Aicha Moran Primary Care Provider UnavailHANY Mata Unavailable [phone] JAY ARROYO Unavailable [phone] ARVIND MCDOWELL Unavailable [phone] LELAND TAYLOR Unavailable [phone] Jay Davis Unavailable [phone] Allergies Allergen (clinical drug ingredient) Drug/Non Drug Allergy documented on EMR Reaction Allergy Type Onset Date Status amitriptyline Amitriptyline Unknown Drug Allergy Active nitroglycerin Nitroglycerin Unknown Drug Allergy Active rivaroxaban Rivaroxaban Unknown Drug Allergy Act ion rosuvastatin Rosuvastatin Unknown Drug Allergy A ctive Results Component Value Reference Range Notes Urinalysis, Routine Reviewed date:12/04/2023 02:35:54 PM Interpretation: Performing Lab: Notes/Report: Urine-Color yellow Appearance clear Glucose - Bilirubin - Ketones - Specific Aurora 1.030 Occult Blood 3+ pH 5.5 Urine Protein 2+ Urobilinogen,Semi-Qn - Nitrite, Urine pos WBC Esterase 1+ UBASE - Urinary Tract Infect ion (HTRx) Reviewed date:05/19/2024 01:05:59 PM Interpretation: Performing Lab:, [facility] [address] [place], Phone - [phone], Director - [id number] Notes/Report: Real-Time polymerase chain reaction (TaqMan qPCR) was utilized for detection for all tested organisms and resistance genes. Initiation of antimicrobial therapy prior to testing may affect results and can lead to the detection of non-living microorganisms. Detection of microbes must be correlated with current/recent antibiotic usage and patient signs and symptoms. Microbial sensitivity testing is not performed at this lab. Professor Of Voice to CFU/mL equivalent thresholds were established based on studies using known CFU/mL urine specimens performed at [facility] in [place], [place]. Testing performed by [facility] ([address], [facility] [place] [address]; CLIA# [id number]; Safety Admin Assistant Nimisha Quach, PhD, [facility])). This test was developed, and its performance characteristics determined by [facility]. It has not been cleared or approved by the FDA. However, such approval/clearance is not required, as the laboratory is regulated and qualified under CLIA to perform high-complexity testing. This test is used for clinical purposes and should not be regarded as investigational or for research. *Approximate copies of target nucleic acid per &micro;L (Low: <2,500 copies/&micro;L, Moderate: 2,500-50,000 copies/&micro;L, High: >50,000 copies/&micro;L) National Infectious Disease Consensus Data Potentially effective oral antibiotics, based on presence of detected microbes, antimicrobial resistance genes, and national antimicrobial sensitivity data (see Summary Antibiogram). Acinetobacter baumannii 0.000 19.961 - 24.689 p pm Acinetobacter baumannii Not Detected 19.961 - 24.689 p pm Citrobacter freundii 0.000 23.000 - 31.881 ppm Citrobacter freundii Not Detected 23.000 - 31.881 ppm Enterobacter aerogenes, cloacae 0.000 23.000 - 31.535 ppm Enterobacter aerogenes, cloacae Not Detected 23.000 - 31.535 ppm Enterococcus faecalis, faecium 0.000 26.000 - 3 1.575 ppm Enterococcus faecalis, faecium Not Detected 26.000 - 3 1.575 ppm Escherichia coli 0.000 23.000 - 28.500 ppm Escherichia coli Not Detected 23.000 - 28.500 ppm Klebsiella pneumoniae, oxytoca 0.000 23.000 - 3 0.500 ppm Klebsiella pneumoniae, oxytoca Not Detected 23.000 - 3 0.500 ppm Morganella morganii 0.000 19.961 - 24.689 ppm Morganella morganii Not Detected 19.961 - 24.689 ppm Proteus mirabilis, vulgaris 0.000 23.000 - 28.5 00 ppm Proteus mirabilis, vulgaris Not Detected 23.000 - 28.5 00 ppm Pseudomonas aeruginosa 0.000 23.000 - 28.500 pp m Pseudomonas aeruginosa Not Detected 23.000 - 28.500 pp m Staphylococcus aureus 0.000 26.000 - 30.902 ppm Staphylococcus aureus Not Detected 26.000 - 30.902 ppm Streptococcus agalactiae (Group B Strep) 0.000 26.000 - 32.222 ppm Streptococcus agalactiae (Group B Strep) Not Detected 26.000 - 32.222 ppm Amina albicans, parapsilos is, tropicalis 0.000 19.961 - 30.770 ppm Amina albicans, parapsilos is, tropicalis Not Detected 19.961 - 30.770 ppm Amina glabrata (Nakaseomyc es glabratus) 0.000 23.000 - 32.138 ppm Amina glabrata (Nakaseomyc es glabratus) Not Detected 23.000 - 32.138 ppm Amina krusei (Pichia kudriavzevii) 0.000 23.0 00 - 32.271 ppm Amina krusei (Pichia kudriavzevii) Not Detected 23.0 00 - 32.271 ppm Serratia marcescens 0.000 23.000 - 31.204 ppm Serratia marcescens Not Detected 23.000 - 31.204 ppm Streptococcus pyogenes (Group A strep) 0.000 19 .961 - 24.689 ppm Streptococcus pyogenes (Group A strep) Not Detected 19 .961 - 24.689 ppm Staphylococcus saprophyticus 0.000 19.961 - 24. 689 ppm Staphylococcus saprophyticus Not Detected 19.961 - 24. 689 ppm Staphylococcus epidermidis, haemolyticus, lugdunensis 0.000 19.961 - 24.689 ppm Staphylococcus epidermidis, haemolyticus, lugdunensis Not Detected 19.961 - 24.689 ppm CBC w/ Auto Diff Reviewed date:05/19/2024 07:56:08 AM Interpretation: Performing Lab: Notes/Report: Testing performed at: [address] [address] CLIA ID [id number] WBC 6.7 4.5-11.0 X10'3 RBC 4.36 4.50-5.90 X10'6 Hgb 14.2 13.5-17.5 G/DL Hct 42.6 41.0-53.0 % MCV 97.7 80.0-100.0 FL MCH 32.6 27.0-31.0 PG MCHC 33.3 31.0-37.0 G/DL Platelet 126 150-400 X10'3 RDW-SD 45.6 35.0-49.0 FL RDW-CV 12.6 12.2-15.6 % MPV 10.8 9.2-12.0 FL Neutro Auto% 60.3 40.0-70.0 % Lymph Auto% 19.6 22.0-44.0 % Ballard Auto% 10.8 3.0-7.0 % Eos Auto% 8.4 2.0-4.0 % Baso Auto% 0.6 0.0-1.0 % Imm Gran% .3 .0-.4 % Neutro Abs 4.04 .80-7.70 Absolute Neutrophil Count 4040 Lymph Abs 1.31 .10-4.10 Ballard Abs .72 .20-1.00 Eos Abs .56 .00-.40 Baso Abs .04 .00-.20 Imm Gran Abs .02 .00-.10 NRBC# .00 .00-.20 NRBC% .00 .00-.20 /100 intact WBC's Basic Metabolic Panel Reviewed date:05/19/2024 07:56:08 AM Interpretation: Performing Lab: Notes/Report: Testing performed at [facility], [address] [place] [address] [place] [address]. CLIA ID#: [id number] T-yrtzky-o-benzoquinone imine (NAPQI) is a metabolite of acetaminophen, NAPQI concentrations of apparoximately 10 mg/L correlation to toxic levels of acetaminophen demonstrates a greater than or equil to 10% change in results. NAPQI concentrations greater than this may lead to falsely depressed results for patient samples. Calculation performed from GFR calculator provided by the National Kidney Foundation. Glomerular Filtration rate(GRF) is the best overall index of kidney function. Normal GFR varies according to age,sex, body size, and declines with age. The National Kidney Foundation recommends using the CKD-EPI Creatinine Equation(2020) to estimate GFR. Testing performed at: [address] [place] [address] CLIA ID [id number] Use of this assay is not recommended for patients undergoing treatment with phenindione, due to the potential for falsely depressed results. Sodium 146 136-145 MMOL/L Potassium 3.8 3.5-5.1 MMOL/L Chloride 110 98-107 MMOL/L CO2 25.1 20.0-31.0 MMOL/L Glucose Serum 87 71-110 MG/DL BUN 31 7-21 MG/DL Creat 1.56 .57-1.17 MG/DL GFR 43.5 Anion Gap 15 5-15 BUN/Creat Ratio 19.9 12.0-20.0 % Calcium 9.7 8.7-10.4 MG/DL Osmo Serum,Calculated 308 280-300 MOSM/KG Urinalysis, Routine Reviewed date:06/09/2024 03:28:10 PM Interpretation: Performing Lab: Notes/Report: Urine-Color yellow Appearance clear Glucose - Bilirubin - Ketones - Specific Aurora 1.025 Occult Blood 3+ pH 5.5 Urine Protein 2+ Urobilinogen,Semi-Qn - Nitrite, Urine - WBC Esterase 3+ Urinalysis, Routine Reviewed date:05/18/2024 09:58:41 AM Interpretation: Performing Lab: Notes/Report: Urine-Color yellow Appearance clear Glucose - Bilirubin - Ketones - Specific Aurora 1.030 Occult Blood 3+ pH 5.5 Urine Protein 1+ Urobilinogen,Semi-Qn - Nitrite, Urine - WBC Esterase - Reason For Referral No Information Medications Medication SIG (Take, Route, Frequency, Duration) Notes Start Date End Date Status Tamsulosin HCl 0.4 MG 1 capsule Orally Twice a day for 30 days Not-Taking Ciprofloxacin 250mg BID x 5 days Not-Taking Finasteride 5 MG 1 tablet Orally Once a day for 90 days 12/04/2023 11/28/2024 Active Tamsulosin HCl 0.4 MG 1 capsule Orally Once a day for 90 days 06/10/2024 06/05/2025 Active Carvedilol 12.5 MG 1 tablet with food Orally Twice a day Active Aspirin Adult Low Dose 81 MG 1 tablet Orally Once a day Active Isosorbide Dinitrate 30 MG 1 tablet Orally Twice a day Active Furosemide 20 MG 1 tablet Orally Once a day Active Levothyroxine Sodium 50 MCG 1 tablet in the morning on an empty stomach Orally Once a day Active amLODIPine Besylate Active Social History Tobacco Use: Social History Observation Description Date Details (start date - stop date) Never Smoker NA - NA Tobacco Control (Standard) Question Answer Notes Tobacco use: Nonsmoker AUDIT-C (Standard) Question Answer Notes Did you have a drink containing alcohol in the p ast year? No Points 0 Interpretation Negative Section Notes: nonsmoker nonsmoker nonsmoker nonsmoker nonsmoker nonsmoker Problems Problem Type SNOMED Code ICD Code Onset Dates Problem Status W/U Status Risk Notes Problem Incision of bladder (21895678) Encounter for attention to cystostomy (Z43.5) Active confirmed Problem Catheterization of urinary bladder (411087660) Trammell catheter in place (Z96.0) Active confirmed Problem Urge urinary incontinence (N39.41) Active confirmed Problem 57939859 Primary hypertension (I10) Active confirmed Problem Change of urinary catheter bag (procedure) (165752467) Catheter (urine) change required (Z46.6) Active confirmed Problem 24312007 Coronary artery disease, unspecified vessel or lesion type, unspecified whether angina present, unspecified whether [place] or transplanted heart (I25.10) Active confirmed Problem Benign prostatic hypertrophy with outflow obstruction (823591294) BPH loc w urin obs/LUTS (N40.1) Active confirmed Vital Signs Heart Rate 72 /min 09/08/2024 Height-cm 185.42 cm 09/08/2024 Blood pressure diastolic 68 mm Hg 09/08/2024 Weight-kg 77.11 kg 09/08/2024 Height 73 in 09/08/2024 Blood pressure systolic 148 mm Hg 09/08/2024 Weight 170 lbs 09/08/2024 BMI 22.43 kg/m2 09/08/2024 Procedures Procedure Date Ordered Date Performed Result Body Sit e Catheter Insertion-Routine 12/25/2023 N/A Voiding Trial 12/25/2023 12/26/2023 N/A Catheter Insertion-Routine 01/20/2024 01/20/2024 N/A SP Tube Change 02/17/2024 02/17/2024 N/A Catheter Insertion-Routine 03/25/2024 03/25/2024 N/A SP Tube Change 05/18/2024 05/18/2024 N/A Voiding Trial 05/25/2024 05/25/2024 N/A Bladder Scan 06/09/2024 06/09/2024 193 ml Bladder Scan 09/08/2024 09/08/2024 52 ml UroFlow 09/08/2024 09/08/2024 N/A Encounters Encounter Location Date Provider Diagnosis [facility] [address] [facility] [place] [address] 05/21/2024 JAY ARROYO [facility], [facility] [address] [facility] [place] [address] 11/12/2023 HANY CABEZAS Urinary retention R33.9 ; Trammell catheter in place Z96.0 ; BPH loc w urin obs/LUTS N40.1 ; Urinary frequency R35.0 ; Nocturia R35.1 ; History of stroke Z86.73 and History of urinary tract infection Z87.440 [facility], [facility] [address] [facility] [place] [address] 12/04/2023 JAY SHERRI Urinary retention R33.9 ; Trammell catheter in place Z96.0 ; BPH loc w urin obs/LUTS N40.1 ; Urinary frequency R35.0 ; Nocturia R35.1 ; History of stroke Z86.73 and History of urinary tract infection Z87.440 [facility] [address] [facility] [place] [address] 12/25/2023 ARVIND MCDOWELL Urinary retention R33.9 ; BPH loc w urin obs/LUTS N40.1 ; Urinary frequency R35.0 ; Nocturia R35.1 and Catheter (urine) change required Z46.6 [facility] [address] [facility] [place] [address] 01/20/2024 LELAND TAYLOR Urinary retention R33.9 and BPH loc w urin obs/LUTS N40.1 [facility] [address] [facility] [place] [address] 02/17/2024 LELAND TAYLOR Urinary retention R33.9 and Catheter (urine) change required Z46.6 [facility] [address] [facility] [place] [address] 03/25/2024 JAY ARROYO Catheter (urine) change required Z46.6 [facility] [address] [facility] [place] [address] 03/30/2024 ARVIND MCDOWELL Sore of penis N48.89 [facility] [address] [place] [address] 05/18/2024 ARVIND MCDOWELL Encounter for preoperative assessment Z01.818 ; Urinary retention R33.9 ; BPH loc w urin obs/LUTS N40.1 ; Recurrent UTI N39.0 and Encounter for attention to cystostomy Z43.5 [facility] [address] [facility] [place] [address] 05/25/2024 LELAND TAYOLR Catheter (urine) change required Z46.6 ; Urinary retention R33.9 and BPH loc w urin obs/LUTS N40.1 [facility] [address] [facility] [place] [address] 06/09/2024 JAY ARROYO Urinary retention R33.9 ; BPH loc w urin obs/LUTS N40.1 ; Recurrent UTI N39.0 and Encounter for attention to cystostomy Z43.5 [facility] [address] [facility] [place] [address] 09/08/2024 JAY ARROYO Urinary retention R33.9 ; BPH loc w urin obs/LUTS N40.1 ; Recurrent UTI N39.0 and Encounter for attention to cystostomy Z43.5 [facility] [address] [facility] [place] [address] 12/31/2023 JAY ARROYO [facility] [address] [place] [address] 01/27/2024 HANY CABEZAS [facility] [address] [facility] [place] [address] 01/29/2024 Jay Davis [facility] [address] [facility] [place] [address] 05/04/2024 HANY CABEZAS [facility] [address] [facility] [place] [address] 05/05/2024 JAY WEISSKER [facility], [facility] [address] [facility] [place] [address] 05/13/2024 JAY Dixon [facility], [facility] [address] [facility] [place] [address] 05/13/2024 JAY ARROYO Pre-op testing Z01.8 18 ; Coronary artery disease, unspecified vessel or lesion type, unspecified whether angina present, unspecified whether [place] or transplanted heart I25.10 and Primary hypertension I10 [employer] [facility], [facility] [address] [facility] [place] [address] 05/13/2024 JAY WEISSKER Assessments Encounter Date Diagnosis (ICD Code) Assessment Notes Treatment Notes Treatment Clinical Notes Section Notes 12/25/2023 Urinary retention (ICD-10 - R33.9) Pt failed voiding trial again. He is emotional today after not being able to void. Reviewed with patient and son that he has high-grade prostate obstruction cystoscopy. We reviewed options again regarding Greenlight PVP versus continued medications and catheter dependency. He does not feel he is capable of performing CIC. He would still like time to consider. Will replace trammell today. Will schedule for catheter changes q4w and plan for f/u with v/t in 4m unless he desires to move forward with surgery. He may call for scheduling if he makes that decision. 12/25/2023 BPH loc w urin obs/LUTS (ICD-10 - N40.1) 09/08/2024 Urinary retention (ICD-10 - R33.9) He has good noninvasive urodynamics today with minimal PVR of 52 cc. He denies any voiding difficulties and is off prostate medications which was good considering he was approaching permanent urinary retention. Return yearly for noninvasive urodynamics. Return sooner with any worsening symptoms. 06/09/2024 Urinary retention (ICD-10 - R33.9) 06/09/2024 BPH loc w urin obs/LUTS (ICD-10 - N40.1) Underwent 125kj PVP on 05/21/24. Pt s/p PVP and doing well on expected post-operative course. PVR 193ml. Denies good urine output. However, notes to not drink enough fluid. On finasteride. I recommend restarting Flomax at this time with slightly elevated PVP. Patient agrees to plan of care. He will return in 3m at peak effect s/p PVP for symptom reassessment with noninvasive urodynamics. Return sooner with any other concerns. 05/25/2024 Catheter (urine) change required (ICD-10 - Z46.6) Pt here for v/t s/p PVP. He did not fully pass v/t although was adament about not having a trammell catheter replaced at this time and would like to attempt to contine to void on his own. I received a call from his son noting that he has since voided ONCE since he has left the office. He is going to attempt to avoid the ER and if he is unable to void throughout the night he will bring him back to the office in the morning 05/25/2024 Urinary retention (ICD-10 - R33.9) Pt here for v/t s/p PVP. He did not fully pass v/t although was adament about not having a trammell catheter replaced at this time and would like to attempt to contine to void on his own. I received a call from his son noting that he has since voided ONCE since he has left the office. He is going to attempt to avoid the ER and if he is unable to void throughout the night he will bring him back to the office in the morning 05/18/2024 Encounter for preoperative assessment (ICD-10 - Z01.818) 05/18/2024 Urinary retention (ICD-10 - R33.9) 03/30/2024 Sore of penis (ICD-10 - N48.89) Patient here with complaints of pain at the tip of his penis where the catheter goes in. He is slightly red and has 2 small sore areas. Per Faith, we will send in nystatin cream. Patient voiced understanding. His catheter was draining well and properly placed. 02/17/2024 Catheter (urine) change required (ICD-10 - Z46.6) Pt was here initially for H&P prior to surgery; although was denied through cardiology. He has f/u with cardiology later in the month. Appt made to trammell change and he tolerated well. He will be scheduled to return in 4wks for routine change unless cardiac clearance has been received prior. 02/17/2024 Urinary retention (ICD-10 - R33.9) Pt was here initially for H&P prior to surgery; although was denied through cardiology. He has f/u with cardiology later in the month. Appt made to trammell change and he tolerated well. He will be scheduled to return in 4wks for routine change unless cardiac clearance has been received prior. 01/20/2024 Urinary retention (ICD-10 - R33.9) Pt here for routine trammell change while he awaits surgical intervention. He tolerated well and will return in 4wks for repeat trammell change if he has not had surgery prior to this. 01/20/2024 BPH loc w urin obs/LUTS (ICD-10 - N40.1) Pt here for routine trammell change while he awaits surgical intervention. He tolerated well and will return in 4wks for repeat trammell change if he has not had surgery prior to this. 12/04/[address] (ICD-10 - Z96.0) He has high-grade prostate obstruction cystoscopy today. He is on Flomax but not maximized on medical management. We discussed surgical options versus continued medications and catheter dependency. We discussed CIC also as an option. He is a good candidate for PVP and information pamphlet given. We will set up prescription for Proscar for maximal medical management and then follow-up in 4 weeks for voiding trial. If he fails we will discuss surgical options versus CIC.. He has high-grade prostate obstruction and has failed medical management of BPH. We have reviewed futher options and he would like to proceed with transurethral procedure. Risks, benefits, and alternatives of PVP reviewed and we will schedule this for next available. Following cystoscopy, we have spent over 10 minutes in further consultation and treatment planning with greater than 50% of that time in direct [id number] discussion. 12/04/2023 Urinary retention (ICD-10 - R33.9) He has high-grade prostate obstruction cystoscopy today. He is on Flomax but not maximized on medical management. We discussed surgical options versus continued medications and catheter dependency. We discussed CIC also as an option. He is a good candidate for PVP and information pamphlet given. We will set up prescription for Proscar for maximal medical management and then follow-up in 4 weeks for voiding trial. If he fails we will discuss surgical options versus CIC.. He has high-grade prostate obstruction and has failed medical management of BPH. We have reviewed futher options and he would like to proceed with transurethral procedure. Risks, benefits, and alternatives of PVP reviewed and we will schedule this for next available. Following cystoscopy, we have spent over 10 minutes in further consultation and treatment planning with greater than 50% of that time in direct [id number] discussion. 11/12/[address] (ICD-10 - Z96.0) 11/12/2023 Urinary retention (ICD-10 - R33.9) 05/13/2024 Pre-op testing (ICD-10 - Z01.818) 03/25/2024 Catheter (urine) change required (ICD-10 - Z46.6) pt here today for trammell change. 10ml balloon deflated and SP tube removed without complication. 16f caude floey inserted, via sterile technique. After clear yellow return 10ml balloon was inflated. Pt tolerated well. will return as scheduled for next change 05/13/2024 Coronary artery disease, unspecified vessel or lesion type, unspecified whether angina present, unspecified whether [place] or transplanted heart (ICD-10 - I25.10) 11/12/2023 BPH loc w urin obs/LUTS (ICD-10 - N40.1) 12/04/2023 BPH loc w urin obs/LUTS (ICD-10 - N40.1) He has high-grade prostate obstruction cystoscopy today. He is on Flomax but not maximized on medical management. We discussed surgical options versus continued medications and catheter dependency. We discussed CIC also as an option. He is a good candidate for PVP and information pamphlet given. We will set up prescription for Proscar for maximal medical management and then follow-up in 4 weeks for voiding trial. If he fails we will discuss surgical options versus CIC.. He has high-grade prostate obstruction and has failed medical management of BPH. We have reviewed futher options and he would like to proceed with transurethral procedure. Risks, benefits, and alternatives of PVP reviewed and we will schedule this for next available. Following cystoscopy, we have spent over 10 minutes in further consultation and treatment planning with greater than 50% of that time in direct [id number]-[id number] discussion. 06/09/2024 Recurrent UTI (ICD-10 - N39.0) 05/18/2024 BPH loc w urin obs/LUTS (ICD-10 - N40.1) Patient scheduled for Greenlight PVP on 05/21/[address] Arroyo. How the procedure was performed was discussed along with risks/benefits/alt ernatives and postprocedural expectations. Denies problems with anesthesia in the past, no new medications or diagnoses since last visit. Patient has presurgical testing today at [facility]. Urine sent for PCR/culture and we will treat as indicated preoperatively. All questions that were asked were answered and elects to proceed with procedure as scheduled. Patient will RTC postoperatively and is satisfied with plan of care. 05/25/2024 BPH loc w urin obs/LUTS (ICD-10 - N40.1) Pt here for v/t s/p PVP. He did not fully pass v/t although was adament about not having a trammell catheter replaced at this time and would like to attempt to contine to void on his own. I received a call from his son noting that he has since voided ONCE since he has left the office. He is going to attempt to avoid the ER and if he is unable to void throughout the night he will bring him back to the office in the morning 09/08/2024 BPH loc w urin obs/LUTS (ICD-10 - N40.1) He has good noninvasive urodynamics today with minimal PVR of 52 cc. He denies any voiding difficulties and is off prostate medications which was good considering he was approaching permanent urinary retention. Return yearly for noninvasive urodynamics. Return sooner with any worsening symptoms. 12/25/2023 Urinary frequency (ICD-10 - R35.0) 09/08/2024 Recurrent UTI (ICD-10 - N39.0) He has good noninvasive urodynamics today with minimal PVR of 52 cc. He denies any voiding difficulties and is off prostate medications which was good considering he was approaching permanent urinary retention. Return yearly for noninvasive urodynamics. Return sooner with any worsening symptoms. 06/09/2024 Encounter for attention to cystostomy (ICD-10 - Z43.5) 12/25/2023 Nocturia (ICD-10 - R35.1) 05/18/2024 Recurrent UTI (ICD-10 - N39.0) Will send urine for PCR to r/o UTI prior to surgery. This patient has clinical indication for infectious disease testing. Urinalysis performed indicates the need for further sensitive detection by PCR. The patient is at higher risk for UTI complications and is being seen in the urologic setting. The enhanced diagnostic accuracy, identification of possible resistance mutations, and quicker result to better guide antibiotics and prevention infection complications that PCR provides is recommended. 12/04/2023 Urinary frequency (ICD-10 - R35.0) He has high-grade prostate obstruction cystoscopy today. He is on Flomax but not maximized on medical management. We discussed surgical options versus continued medications and catheter dependency. We discussed CIC also as an option. He is a good candidate for PVP and information pamphlet given. We will set up prescription for Proscar for maximal medical management and then follow-up in 4 weeks for voiding trial. If he fails we will discuss surgical options versus CIC.. He has high-grade prostate obstruction and has failed medical management of BPH. We have reviewed futher options and he would like to proceed with transurethral procedure. Risks, benefits, and alternatives of PVP reviewed and we will schedule this for next available. Following cystoscopy, we have spent over 10 minutes in further consultation and treatment planning with greater than 50% of that time in direct cqco-wz-qxjn discussion. 05/13/2024 Primary hypertension (ICD-10 - I10) 11/12/2023 Urinary frequency (ICD-10 - R35.0) 12/04/2023 Nocturia (ICD-10 - R35.1) He has high-grade prostate obstruction cystoscopy today. He is on Flomax but not maximized on medical management. We discussed surgical options versus continued medications and catheter dependency. We discussed CIC also as an option. He is a good candidate for PVP and information pamphlet given. We will set up prescription for Proscar for maximal medical management and then follow-up in 4 weeks for voiding trial. If he fails we will discuss surgical options versus CIC.. He has high-grade prostate obstruction and has failed medical management of BPH. We have reviewed futher options and he would like to proceed with transurethral procedure. Risks, benefits, and alternatives of PVP reviewed and we will schedule this for next available. Following cystoscopy, we have spent over 10 minutes in further consultation and treatment planning with greater than 50% of that time in direct qiwk-wg-wmlv discussion. 11/12/2023 Nocturia (ICD-10 - R35.1) 05/18/2024 Encounter for attention to cystostomy (ICD-10 - Z43.5) 12/25/2023 Catheter (urine) change required (ICD-10 - Z46.6) 09/08/2024 Encounter for attention to cystostomy (ICD-10 - Z43.5) He has good noninvasive urodynamics today with minimal PVR of 52 cc. He denies any voiding difficulties and is off prostate medications which was good considering he was approaching permanent urinary retention. Return yearly for noninvasive urodynamics. Return sooner with any worsening symptoms. 11/12/2023 History of stroke (ICD-10 - Z86.73) 12/04/2023 History of stroke (ICD-10 - Z86.73) He has high-grade prostate obstruction cystoscopy today. He is on Flomax but not maximized on medical management. We discussed surgical options versus continued medications and catheter dependency. We discussed CIC also as an option. He is a good candidate for PVP and information pamphlet given. We will set up prescription for Proscar for maximal medical management and then follow-up in 4 weeks for voiding trial. If he fails we will discuss surgical options versus CIC.. He has high-grade prostate obstruction and has failed medical management of BPH. We have reviewed futher options and he would like to proceed with transurethral procedure. Risks, benefits, and alternatives of PVP reviewed and we will schedule this for next available. Following cystoscopy, we have spent over 10 minutes in further consultation and treatment planning with greater than 50% of that time in direct isbl-me-dhcf discussion. 12/04/2023 History of urinary tract infection (ICD-10 - Z87.440) He has high-grade prostate obstruction cystoscopy today. He is on Flomax but not maximized on medical management. We discussed surgical options versus continued medications and catheter dependency. We discussed CIC also as an option. He is a good candidate for PVP and information pamphlet given. We will set up prescription for Proscar for maximal medical management and then follow-up in 4 weeks for voiding trial. If he fails we will discuss surgical options versus CIC.. He has high-grade prostate obstruction and has failed medical management of BPH. We have reviewed futher options and he would like to proceed with transurethral procedure. Risks, benefits, and alternatives of PVP reviewed and we will schedule this for next available. Following cystoscopy, we have spent over 10 minutes in further consultation and treatment planning with greater than 50% of that time in direct vxxf-jp-bkto discussion. 11/12/2023 History of urinary tract infection (ICD-10 - Z87.440) 11/12/2023 Other Recommend leavi ng Trammell in place and schedule for cystoscopy due to multiple episodes of urinary retention. Patient agreeable. He will RTC for next available cystoscopy. 06/09/2024 Other ILizbet, Levon, am scribing for, and in the presence of, Dr. Arroyo. I, Dr. Jay Arroyo, personally performed the services prescribed in this documentation, as scribed by Lizbet London, in my presence, and it is both accurate and complete. Plan Of Treatment Pending Test Test Name Order Date Catheter Insertion-Routine 12/25/2023 Electrocardiogram, 12 Lead Tracing-[id number] 05/13/2024 Next Appt Details Provider Name:JAY Birmingham, 09/14/2025 09:05:00 AM, [address] [place], [address], Insurance Providers Payer Name Payer Address Payer Phone Subscriber Number Group Number Insured Name Patient Relationship to Insured Coverage Start Date Coverage End Date [facility] Medicare Advantage PPO [address] [address] [place], [place] [id number] Surface, Eliza Self - patient is the insured Medical (General) History Medical History History ICD Code CAD HTN High Cholesterol Difficulty urinating Urinary Retention Stroke Thyroid disease Surgical History Surgery Date(Month/Year) CABG 1995 CABG 2010 Pacemaker 2022 PVP Hospitalization History Reason Date(Month/Year) retention 10/2023 Dizziness, urinary retention 06/2023 Dizziness 06/2023
--- OUTSIDE RECORDS SUMMARY | 2024-09-12 11:54 | XMS_ITS | Patient Health Record ---
Author Organization [facility] Address [address], [place] [id number] Care Team Providers Care Food Counter Attendant Name Role Phone Jay Arroyo Unavailable [phone] Reason For Referral No Information Encounters Encounter Location Date Provider Diagnosis [facility] [address], [place] [id number] 05/21/2024 Jay Arroyo Plan Of Treatment No Information
[2024-09-12 12:22] VITALS: BP 155/97; PULSE 78; RESP 16; O2SAT 96
[2024-09-12 12:33] VITALS: BP 160/99; PULSE 65; RESP 16; O2SAT 97
--- NOTE | 2024-09-12 12:35 | CTR_ITS ---
PROCEDURE INFORMATION: Exam: CT Abdomen And Pelvis Without Contrast Exam date and time: 09/12/2024 12:53 PM Age: 84 years old Clinical indication: Constipation; Additional info: Abdominal pain TECHNIQUE: Imaging protocol: Computed tomography of the abdomen and pelvis without contrast. Radiation optimization: All CT scans at this facility use at least one of these dose optimization techniques: automated exposure control; mA and/or kV adjustment per patient size (includes targeted exams where dose is matched to clinical indication); or iterative reconstruction. COMPARISON: CT abdomen pelvis w con* [id number] 04/18/2024 10:28 PM RADIATION DOSE METRICS: Total DLP (mGy-cm): 627.29 FINDINGS: Heart: Aortic valve replacement. Diaphragm: Small hiatal hernia. Liver: Normal. No mass. Gallbladder and biliary ducts: Post cholecystectomy changes are seen. Pancreas: Normal. No ductal dilation. Spleen: Normal. No splenomegaly. Adrenal glands: Normal. No mass. Kidneys and ureters: Bilateral renal 1-2 mm nonobstructing calculi. Indeterminate right kidney 7 mm hyperdense lesion. Stomach and bowel: Significant stool is seen at the rectal vault. Diffuse colonic stool material. Diffuse diverticulosis is seen. No small bowel loop dilatation. Appendix: Appendix is not visualized. Intraperitoneal space: Unremarkable. No free air. No significant fluid collection. Vasculature: Mild calcified atherosclerotic changes are seen throughout the abdominal aorta. Abdominal aortic aneurysm measures 3.5 x 3.8 cm. Lymph nodes: Unremarkable. No enlarged lymph nodes. Urinary bladder: Unremarkable as visualized. Reproductive: Unremarkable as visualized. Bones/joints: Moderate lumbar spine degenerative changes. Chronic L2 compression deformity. Soft tissues: Unremarkable. CT/CT abdomen pelvis wo con [id number] IMPRESSION: 1. Abdominal aortic aneurysm measures 3.5 x 3.8 cm. 2. Bilateral renal 1-2 mm nonobstructing calculi. 3. Indeterminate right kidney 7 mm hyperdense lesion. Finding could represent proteinaceous or hemorrhagic cyst. Imaging follow-up for stability is advised. 4. Mild calcified atherosclerotic changes are seen throughout the abdominal aorta. 5. Significant stool is seen at the rectal vault. Clinical correlation to exclude fecal impaction is advised. 6. Diffuse colonic stool material. Clinical correlation to exclude constipation is advised. 7. Diffuse diverticulosis is seen. 8. Moderate lumbar spine degenerative changes. COMMENTS: Consistent with the [employer]'s Incidental Findings Committee white paper (J Am Nilson Radiol 2018): Any incidental renal lesion less than 1 cm or classified as too small to characterize, or any incidental cystic renal lesion characterized as simple-appearing, is likely benign. No follow-up imaging is recommended for these lesions per consensus recommendations based on imaging criteria.
--- NOTE | 2024-09-12 12:36 | W.ED.ABDPA2 ---
HPI - Abdominal Pain General: Chief Complaint: Abdominal Pain Stated Complaint: constipation Time Seen by Provider: 09/12/24 12:16 History of Present Illness: Chief complaint is constipation. Patient states that he has not had a bowel movement for 2 to 3 days. He states before that they were very hard and small amounts. No new medications. He has had a history of stroke and has limited mobility which is unchanged according to son. Son and patient give the history. Denies any black or bloody stools. No vomiting. He states he does get some abdominal discomfort and feels like abdominal pain that feels like constipation he tells me. No new back pain. No loss of bowel or bladder control. No change in urination. No headache fever vomiting chest pain shortness of breath cough. No new leg pain or swelling or weakness in his arms or legs that is new. Related Data Home Medications ?Medication ?Instructions ?Recorded ?Confirmed finasteride 5 mg tablet 5 mg PO DAILY 01/16/24 09/12/24 sgoedyor-wvmtqkvi-yjshd acid 400 1 tab PO QAM 01/24/24 09/12/24 mcg-vit K 20 mcg-lycop 300 mcg tablet (Men's Daily Formula) tamsulosin 0.4 mg capsule 0.4 mg PO QPM 01/24/24 09/12/24 docusate sodium 50 mg capsule 50 mg PO DAILY 07/31/24 09/12/24 Previous Rx's ?Medication ?Instructions ?Recorded aspirin 81 mg chewable tablet 81 mg PO QAM #90 tabs 12/25/21 levothyroxine 50 mcg tablet 50 mcg PO QAM #90 tabs 04/24/23 (Synthroid) atorvastatin 20 mg tablet (Lipitor) 20 mg PO DAILY #90 tabs 09/01/24 pantoprazole 20 mg tablet,delayed 20 mg PO DAILY #90 tabs 09/01/24 release sertraline 25 mg tablet (Zoloft) 25 mg PO DAILY improve mood #90 09/01/24 tabs lactulose 10 gram/15 mL oral 20 g (30 mL) PO BID PRN 09/12/24 solution constipation 7 days #473 mL Allergies Allergy/AdvReac Type Severity Reaction Status Date / Time rosuvastatin (From Crestor) Allergy Mild Makes me Verified 09/01/24 10:47 daria nitroglycerin Allergy Unknown Makes me Verified 09/01/24 10:47 wild amitriptyline AdvReac Made me Verified 09/01/24 10:47 weak and looney, wasn't thinking right rivaroxaban (From Xarelto) AdvReac black stool Verified 09/01/24 10:47 [facility] ED PFSH: Medical History VRE (vancomycin-resistant Enterococci) Pseudomonas urinary tract infection 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 Seborrheic keratoses Stroke Dizziness and giddiness Fatigue Dyslipidemia Diverticulosis Hiatal hernia History of pulmonary embolism History of Sindy-Kirk syndrome Chronic kidney disease Insomnia GERD (gastroesophageal reflux disease) Systolic congestive heart failure Thoracic aortic aneurysm CAD (coronary artery disease) Surgical History Status post transcatheter aortic valve replacement (TAVR) using bioprosthesis aortic stenosis History of drainage of abscess Percutaneous, right lower quadrant suspected appendiceal abscess History of cataract surgery Bilateral History of coronary artery stent placement Reports a total of 3 stents after her last CABG done in [facility] Dr. Rogers [facility] History of coronary artery bypass graft 1996 in 2010 -- 3 vessels total History of cholecystectomy Family History Mother Diabetes Stroke Father Gallbladder disease Brother Chronic kidney disease (CKD) Diabetes Denies family history of CAD (coronary artery disease) Clotting disorder Dementia Suicide Anesthesia complication Bleeding disorder Lung disease Cancer Social History Smoking and tobacco/nicotine status: never used tobacco/nicotine Alcohol intake: never Substance/Drug Use: never Caregiver/support person: Yes Household members: spouse Physical Exam Narrative: EXAM NARRATIVE: Alert oriented no acute distress. Neck is supple. Normal conjunctiva. Skin appears warm well-perfused. No calf tenderness or pitting edema. Heart is regular rhythm. Lung sounds are clear. Abdomen soft nontender no guarding or rebound. No bloating. Active bowel sounds. 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 He has moist mucous membranes. He moves his back freely and sits up freely. No tenderness. Shows ability to reason. Speech is clear. Appropriate affect Course Vital Signs: Vital signs: Vital Signs Temperature 97.6 F 09/12/24 11:52 Pulse Rate 62 09/12/24 15:00 Respiratory Rate 16 09/12/24 15:00 Blood Pressure 187/104 09/12/24 15:00 Pulse Oximetry 96 09/12/24 15:00 Oxygen Delivery Me thod Room Air 09/12/24 15:00 MDM - Abdominal Pain Medical Decision Making Patient presents complaining of constipation. He has abdominal pain with it. Bowel obstruction, diverticulitis, volvulus, constipation, broad differential. He denies any new or concerning back pain and has intact sensation in his inner thighs and denies loss or change in urination. He does have a history of prostate problems that been treated according to the son. Patient is a very vague historian of his past medical history. I recommended we get a CT. I reviewed patient's prior creatinines and he has had fairly elevated creatinine so we will do CT without contrast with low pretest probability. He is not having sharp or severe postprandial pain suggestive of mesenteric ischemia although he would be high risk for it. I ordered 1 L normal saline IV fluid bolus. I reviewed his prior echocardiogram which showed EF of 40%. He is not currently on any diuretics. Will get CBC CMP and treat with a dose of lactulose p.o. If no evidence of bowel obstruction or acute diverticulitis or other acute emergent process on CT and lab plan to treat outpatient with increased fiber intake and lactulose and close outpatient follow-up. Son and patient agree with this plan after informed discussion. CT shows right renal lesion and AAA and I discussed this with the patient and son. CT shows constipation but no other acute process per radiology. Advised son and patient limits of CT and ED evaluation. CBC CMP lipase did not show significant acute abnormality. Patient has had a bowel movement here. Will discharge home on continued lactulose fiber and outpatient follow-up and return instructions. Lab Data 09/12/24 13:12 09/12/24 13:12 Labs/Radiology: Radiology Impressions Abdomen/Pelvis CT 09/12/24 12:35 IMPRESSION: 1. Abdominal aortic aneurysm measures 3.5 x 3.8 cm. 2. Bilateral renal 1-2 mm nonobstructing calculi. 3. Indeterminate right kidney 7 mm hyperdense lesion. Finding could represent proteinaceous or hemorrhagic cyst. Imaging follow-up for stability is advised. 4. Mild calcified atherosclerotic changes are seen throughout the abdominal aorta. 5. Significant stool is seen at the rectal vault. Clinical correlation to exclude fecal impaction is advised. 6. Diffuse colonic stool material. Clinical correlation to exclude constipation is advised. 7. Diffuse diverticulosis is seen. 8. Moderate lumbar spine degenerative changes. COMMENTS: Consistent with the [employer]'s Incidental Findings Committee white paper (J Am Nilson Radiol 2018): Any incidental renal lesion less than 1 cm or classified as too small to characterize, or any incidental cystic renal lesion characterized as simple-appearing, is likely benign. No follow-up imaging is recommended for these lesions per consensus recommendations based on imaging criteria. Laboratory Results WBC 6.26 10^3/uL (3.29-11.43) 09/12/24 13:12 RBC 4.55 10^6/uL (3.85-5.65) 09/12/24 13:12 Hgb 15.10 g/dL (11.27-16.99) 09/12/24 13:12 Hct 43.6 % (37-53) 09/12/24 13:12 MCV 95.8 fl (82-101) 09/12/24 13:12 MCH 33.2 pg (27-33) H 09/12/24 13:12 MCHC 34.6 g/dL (30-55) 09/12/24 13:12 RDW 13.2 % (12.1-15.1) 09/12/24 13:12 Plt Count 128 10^3/cmm (157-399) L 09/12/24 13:12 MPV 11.0 fL (7.4-10.4) H 09/12/24 13:12 Neut % (Auto) 73.9 % 09/12/24 13:12 Lymph % (Auto) 10.9 % 09/12/24 13:12 [place] % (Auto) 9.9 % 09/12/24 13:12 Eos % (Auto) 4.8 % 09/12/24 13:12 Baso % (Auto) 0.3 % 09/12/24 13:12 Neut # (Auto) 4.63 10^3/uL (1.8-7.7) 09/12/24 13:12 Lymph # (Auto) 0.7 10^3/uL (0.8-4.8) L 09/12/24 13:12 [place] # (Auto) 0.6 10^3/uL (0.2-0.9) 09/12/24 13:12 Eos # (Auto) 0.3 10^3/uL (0.0-0.8) 09/12/24 13:12 Baso # (Auto) 0.0 10^3/uL (0.0-0.1) 09/12/24 13:12 Nucleated RBC % (auto) 0 % 09/12/24 13:12 Nucleated RBCs # 0.0 /100WBC 09/12/24 13:12 Sodium 141 mmol/L (136-145) 09/12/24 13:12 Potassium 3.9 mmol/L (3.5-5.1) 09/12/24 13:12 Chloride 105 mmol/L (98-107) 09/12/24 13:12 Carbon Dioxide 22 mmol/L (22-29) 09/12/24 13:12 Anion Gap 17.9 (5-19) 09/12/24 13:12 BUN 28 mg/dL (8-23) H 09/12/24 13:12 Creatinine 1.3 mg/dL (0.7-1.2) H 09/12/24 13:12 GFR Calculation Not Reportable 09/12/24 13:12 Glucose 106 mg/dL (65-115) 09/12/24 13:12 Calculated Osmolality 298 mOsm/kg (285-295) H 09/12/24 13:12 Calcium 9.3 mg/dL (8.5-10.5) 09/12/24 13:12 Total Bilirubin 0.6 mg/dL (0.15-1.2) 09/12/24 13:12 AST 21 U/L (0-40) 09/12/24 13:12 ALT 17 U/L (0-41) 09/12/24 13:12 Alkaline Phosphatase 104 U/L (40-130) 09/12/24 13:12 Total Protein 7.4 g/dL (6.6-8.7) 09/12/24 13:12 Albumin 4.2 g/dL (3.5-5.2) 09/12/24 13:12 Globulin 3.2 g/dL (1.3-4.6) 09/12/24 13:12 Lipase 32 U/L (13-60) 09/12/24 13:12 All radiology interpretation(s) finalized by discharge Discharge Plan Discharge Patient Disposition: Home Clinical Impression: Constipation, Abdominal pain Condition: Stable Prescriptions: New lactulose 10 gram/15 mL solution 20 g PO BID PRN (Reason: constipation) 7 Days Qty: 473 0RF No Action atorvastatin [Lipitor] 20 mg tablet 20 mg PO DAILY Qty: 90 1RF pantoprazole 20 mg tablet,delayed release (DR/EC) 20 mg PO DAILY Qty: 90 0RF sertraline [Zoloft] 25 mg tablet 25 mg PO DAILY Qty: 90 0RF Synthroid 50 mcg tablet 50 mcg PO QAM Qty: 90 3RF docusate sodium 50 mg Capsule 50 mg PO DAILY aspirin 81 mg Tablet,Chewable 81 mg PO QAM Qty: 90 3RF finasteride 5 mg tablet 5 mg PO DAILY Men's Daily Formula 400-20-300 mcg Tablet 1 tab PO QAM tamsulosin 0.4 mg capsule 0.4 mg PO QPM Discharge Orders: Discharge ED (Routine); Ordered 09/12/24 Ordered By: Tony Son Referrals: Aicha Moran MD [Primary Care Provider, Family Practice] Patient Instructions: Abdominal Pain (ED), Opioid Safety, Pain Management, Patient Portal & Silviano Instructions Activity Restrictions/Additional Instructions: Take a fiber supplement daily. Increase your water soluble fiber in your diet. Come back if vomiting, concerning abdominal pain, getting worse instead of better, any concerns. Follow-up for cancer screening on lesion found on right kidney and review of other CT and lab results with your doctor. You do have an aneurysm on your aorta. Make sure to drink plenty of fluid. Come back if concerning abdominal pain, vomiting, fever, any worse or concerns Print Language: German Coding Level of Care Code ED Credit Collections Specialist for Gilbert Bettencourt
[2024-09-12] MEDS: lactulose oral liq 20 gm/30 mL UDC PO (12:46)
[2024-09-12 13:31] LABS: Hematocrit 43.6 % (37-53); Hemoglobin 15.10 g/dL (11.27-16.99); Mean Corpuscular HGB Conc 34.6 g/dL (30-55); Mean Corpuscular Hemoglobin 33.2 pg (27-33); Mean Corpuscular Volume 95.8 fl (82-101); Nucleated Red Blood Cells % 0 %; Platelet Count 128 10^3/cmm (157-399); Red Blood Count 4.55 10^6/uL (3.85-5.65); White Blood Count 6.26 10^3/uL (3.29-11.43)
[2024-09-12 13:48] LABS: Alanine Aminotransferase 17 U/L (0-41); Albumin Level 4.2 g/dL (3.5-5.2); Alkaline Phosphatase 104 U/L (40-130); Anion Gap 17.9 (5-19); Aspartate Amino Transferase 21 U/L (0-40); Blood Urea Nitrogen 28 mg/dL (8-23); Calcium 9.3 mg/dL (8.5-10.5); Carbon Dioxide 22 mmol/L (22-29); Chloride 105 mmol/L (98-107); Globulin 3.2 g/dL (1.3-4.6); Glucose 106 mg/dL (65-115); Lipase 32 U/L (13-60); Osmolality Calculated 298 mOsm/kg (285-295); Potassium 3.9 mmol/L (3.5-5.1); Sodium 141 mmol/L (136-145); Total Protein 7.4 g/dL (6.6-8.7)
[2024-09-12 13:50] LABS: Creatinine Clr Calc Pharmacy 47.3604
[2024-09-12 14:22] VITALS: BP 183/99; PULSE 60; RESP 16; O2SAT 96
[2024-09-12 15:00] VITALS: BP 187/104; PULSE 62; RESP 16; O2SAT 96
== END 2024-09-12 16:13 | disposition home or self-care (01) ==
PROVIDERS: Emergency Provider Emergency Medicine; PCP Family Medicine
DX: K59.00 Constipation, unspecified (principal); R10.9 Unspecified abdominal pain; Z79.82 Long term (current) use of aspirin; E78.5 Hyperlipidemia, unspecified; I25.10 Atherosclerotic heart disease of native coronary artery without angina pectoris; Z95.810 Presence of automatic (implantable) cardiac defibrillator; N18.9 Chronic kidney disease, unspecified; I50.20 Unspecified systolic (congestive) heart failure
CPT/HCPCS: 36415; 74176; 80053; 83690; 85025; 99284; J7030; J9999

== ENCOUNTER → 2024-09-29 13:19 | Outpatient (BNVA) | payer MEDICARE, SELFPAY | PROVIDERS: PCP Family Medicine; Visit Provider Internal Medicine Cardiovascular Disease | DX: I25.10 Atherosclerotic heart disease of native coronary artery without angina pectoris (principal); E78.5 Hyperlipidemia, unspecified; Z98.890 Other specified postprocedural states; I13.0 Hypertensive heart and chronic kidney disease with heart failure and stage 1 through stage 4 chronic kidney disease, or unspecified chronic kidney disease; N18.9 Chronic kidney disease, unspecified; I50.20 Unspecified systolic (congestive) heart failure; Z95.1 Presence of aortocoronary bypass graft; Z95.810 Presence of automatic (implantable) cardiac defibrillator | CPT/HCPCS: 99214 ==

== ENCOUNTER → 2024-12-03 12:54 | Outpatient (BNVA) | payer MEDICARE, SELFPAY | PROVIDERS: PCP Family Medicine; Visit Provider Thoracic Surgery (Cardiothoracic Vascular Surgery) | DX: I96 Gangrene, not elsewhere classified (principal); S81.802D Unspecified open wound, left lower leg, subsequent encounter; X58.XXXD Exposure to other specified factors, subsequent encounter | CPT/HCPCS: 97597; 99213; A6212 ==

== ENCOUNTER → 2024-12-10 12:49 | Outpatient (BNVA) | payer MEDICARE, SELFPAY | PROVIDERS: PCP Family Medicine; Visit Provider Thoracic Surgery (Cardiothoracic Vascular Surgery) | DX: Z09 Encounter for follow-up examination after completed treatment for conditions other than malignant neoplasm (principal); Z87.2 Personal history of diseases of the skin and subcutaneous tissue | CPT/HCPCS: 99212 ==

== ENCOUNTER 2024-12-16 17:49 | Emergency (ER) | payer MEDICARE, SELFPAY ==
--- NOTE | 2024-12-16 17:51 | W.ED.SOB ---
HPI - SOB/Dyspnea General: Chief Complaint: Shortness of Breath/Dyspnea Stated Complaint: SOB History of Present Illness: HPI Narrative: 84-year-old male with a history of hypertension, cerebral atrophy, TAVR, cardiac defibrillator placement, stroke, hyperlipidemia, hyperlipidemia, GERD, heart failure and coronary artery disease who presents emergency room with shortness of breath. He has had a mild cough and some shortness of breath all day. Finally family called ambulance. He has not required any oxygen according to them. They do say he improved some with breathing treatments. He says he feels much better upon arrival here. He has no known history of COPD. No fevers. No focal motor deficits. Related Data Home Medications ?Medication ?Instructions ?Recorded ?Confirmed finasteride 5 mg tablet 5 mg PO DAILY 01/16/24 11/27/24 ernuyhor-prphryjr-mxthp acid 400 1 tab PO QAM 01/24/24 11/27/24 mcg-vit K 20 mcg-lycop 300 mcg tablet (Men's Daily Formula) amlodipine 5 mg tablet 5 mg PO BID 09/29/24 11/27/24 carvedilol 12.5 mg tablet 6.25 mg PO DAILY 09/29/24 11/27/24 Previous Rx's ?Medication ?Instructions ?Recorded aspirin 81 mg chewable tablet 81 mg PO QAM #90 tabs 12/25/21 atorvastatin 20 mg tablet (Lipitor) 20 mg PO DAILY #90 tabs 09/01/24 pantoprazole 20 mg tablet,delayed 20 mg PO DAILY #90 tabs 09/01/24 release sertraline 25 mg tablet (Zoloft) 25 mg PO DAILY improve mood #90 09/01/24 tabs levothyroxine 50 mcg tablet 50 mcg PO QAM #90 tabs 10/05/24 (Synthroid) tamsulosin 0.4 mg capsule 0.4 mg PO QPM #90 caps 11/03/24 docusate sodium 100 mg capsule 100 mg PO BID #180 caps 11/10/24 doxycycline hyclate 100 mg capsule 100 mg PO BID 10 days #20 caps 11/27/24 mupirocin 2 % topical ointment 1 applic topical BID #22 grams 11/27/24 (Centany) albuterol sulfate 90 mcg/actuation 2 inh inhalation Q4H PRN shortness 12/16/24 aerosol inhaler of breath or wheezing #6.7 grams dexamethasone 6 mg tablet 6 mg PO DAILY 5 days #5 tabs 12/16/24 doxycycline hyclate 100 mg capsule 100 mg PO BID 7 days #14 caps 12/16/24 Allergies Allergy/AdvReac Type Severity Reaction Status Date / Time rosuvastatin (From Crestor) Allergy Mild Makes me Verified 12/16/24 17:58 daria nitroglycerin Allergy Unknown Makes me Verified 12/16/24 17:58 wild amitriptyline AdvReac Made me Verified 12/16/24 17:58 weak and daria, wasn't thinking right rivaroxaban (From Xarelto) AdvReac black stool Verified 12/16/24 17:58 Review of Systems Narrative: Constitutional symptoms: Negative except as documented in HPI. Skin symptoms: Negative except as documented in HPI. Eye symptoms: Negative except as documented in HPI. ENMT symptoms: Negative except as documented in HPI. Respiratory symptoms: Negative except as documented in HPI. Cardiovascular symptoms: Negative except as documented in HPI. Gastrointestinal symptoms: Negative except as documented in HPI. Genitourinary symptoms: Negative except as documented in HPI. Musculoskeletal symptoms: Negative except as documented in HPI. Neurologic symptoms: Negative except as documented in HPI. Psychiatric symptoms: Negative except as documented in HPI. Endocrine symptoms: Negative except as documented in HPI. 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) Pseudomonas urinary tract infection 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 Seborrheic keratoses Stroke Dizziness and giddiness Fatigue Dyslipidemia Diverticulosis Hiatal hernia History of pulmonary embolism History of Sindy-Kirk syndrome Chronic kidney disease Insomnia GERD (gastroesophageal reflux disease) Systolic congestive heart failure Thoracic aortic aneurysm CAD (coronary artery disease) Surgical History Status post transcatheter aortic valve replacement (TAVR) using bioprosthesis aortic stenosis History of drainage of abscess Percutaneous, right lower quadrant suspected appendiceal abscess History of cataract surgery Bilateral History of coronary artery stent placement Reports a total of 3 stents after her last CABG done in [place], Dr. Rogers [facility] History of coronary artery bypass graft 1996 in 2010 -- 3 vessels total History of cholecystectomy Family History Mother Diabetes Stroke Father Gallbladder disease Brother Chronic kidney disease (CKD) Diabetes Denies family history of CAD (coronary artery disease) Clotting disorder Dementia Suicide Anesthesia complication Bleeding disorder Lung disease Cancer Social History Smoking and tobacco/nicotine status: never used tobacco/nicotine Alcohol intake: never Substance/Drug Use: never Caregiver/support person: Yes Household members: spouse Physical Exam Narrative: EXAM NARRATIVE: General: Alert, no acute distress. Skin: Warm, dry. Head: Normocephalic, atraumatic. Neck: Supple, trachea midline. Eye: Extraocular movements are intact. Ears, nose, mouth and throat: mucosa moist. Cardiovascular: Regular, Normal peripheral perfusion. Respiratory: Lungs are clear to auscultation, respirations are non-labored, breath sounds are equal, Symmetrical chest wall expansion. Gastrointestinal: Soft, Nontender, Non distended Musculoskeletal: Normal ROM, no deformity. Neurological: Alert and oriented, No focal neurological deficit observed. Psychiatric: Cooperative, appropriate mood & affect. Course Vital Signs: Vital signs: Vital Signs Temperature 97.8 F 12/16/24 17:55 Pulse Rate 50 L 12/16/24 19:04 Respiratory Rate 24 H 12/16/24 17:55 Blood Pressure 109/77 12/16/24 19:04 Pulse Oximetry 93 12/16/24 19:04 Oxygen Delivery Me thod Room Air 12/16/24 19:04 MDM - SOB/Dyspnea Medical Decision Making Differential diagnosis for patient with shortness of breath includes but is not limited to and based on the above HPI, review of systems and physical exam: Pneumonia. Bronchitis. Asthma or COPD with acute exacerbation. Acute coronary syndrome / NV. Pulmonary embolism. Anxiety. Congestive heart failure. Viral infections including influenza and Covid-19. Atrial fibrillation. Anxiety. Pleural effusion. Pneumothorax. Orders placed to evaluate differential diagnosis based on the above differential, HPI and physical exam Chest x-ray: No acute process. No infiltrate. No pneumothorax. This was reviewed and interpreted by myself the emergency room physician. I also reviewed the radiology report. EKG: Time 1808. Rate 74. Normal sinus rhythm, No ST-T changes, no ectopy, paced rhythm, this was reviewed and interpreted by myself the emergency room physician at 1811 Lab Review: Laboratory results were reviewed and interpreted by myself the emergency room physician. No leukocytosis no anemia. Stable chronic renal insufficiency. I reviewed the patient's medical record. Reexamination: Patient remained stable. No increased work of breathing. No altered mental status. No focal motor deficits. No oxygen requirements. No wheeze. Assessment and plan: Bronchitis ? Decadron and doxycycline in the emergency room - Discharged home - Discussed plan with patient. Answered any questions. - Evaluation and treatment of this problem were appropriate in the emergency setting. Lab Data 12/16/24 17:56 12/16/24 18:16 Labs/Radiology: Radiology Impressions Chest X-Ray 12/16/24 17:54 IMPRESSION: No definite acute infiltrate or effusion Laboratory Results WBC 5.93 10^3/uL (3.29-11.43) 12/16/24 17:56 RBC 4.48 10^6/uL (3.85-5.65) 12/16/24 17:56 Hgb 14.80 g/dL (11.27-16.99) 12/16/24 17:56 Hct 43.2 % (37-53) 12/16/24 17:56 MCV 96.4 fl (82-101) 12/16/24 17:56 MCH 33.0 pg (27-33) 12/16/24 17:56 MCHC 34.3 g/dL (30-55) 12/16/24 17:56 RDW 12.6 % (12.1-15.1) 12/16/24 17:56 Plt Count 121 10^3/cmm (157-399) L 12/16/24 17:56 MPV 12.6 fL (7.4-10.4) H 12/16/24 17:56 Neut % (Auto) 61.1 % 12/16/24 17:56 Lymph % (Auto) 20.2 % 12/16/24 17:56 [place] % (Auto) 12.1 % 12/16/24 17:56 Eos % (Auto) 5.6 % 12/16/24 17:56 Baso % (Auto) 0.8 % 12/16/24 17:56 Neut # (Auto) 3.62 10^3/uL (1.8-7.7) 12/16/24 17:56 Lymph # (Auto) 1.2 10^3/uL (0.8-4.8) 12/16/24 17:56 [place] # (Auto) 0.7 10^3/uL (0.2-0.9) 12/16/24 17:56 Eos # (Auto) 0.3 10^3/uL (0.0-0.8) 12/16/24 17:56 Baso # (Auto) 0.1 10^3/uL (0.0-0.1) 12/16/24 17:56 Nucleated RBC % (auto) 0 % 12/16/24 17:56 Nucleated RBCs # 0.0 /100WBC 12/16/24 17:56 Sodium 143 mmol/L (136-145) 12/16/24 18:16 Potassium 4.2 mmol/L (3.5-5.1) 12/16/24 18:16 Chloride 107 mmol/L (98-107) 12/16/24 18:16 Carbon Dioxide 24 mmol/L (22-29) 12/16/24 18:16 Anion Gap 16.2 (5-19) 12/16/24 18:16 BUN 28 mg/dL (8-23) H 12/16/24 18:16 Creatinine 1.6 mg/dL (0.7-1.2) H 12/16/24 18:16 GFR Calculation Not Reportable 12/16/24 18:16 Glucose 126 mg/dL (65-115) H 12/16/24 18:16 Calculated Osmolality 303 mOsm/kg (285-295) H 12/16/24 18:16 Lactic Acid 1.3 mmol/L (0.5-2.2) 12/16/24 18:09 Calcium 8.9 mg/dL (8.5-10.5) 12/16/24 18:16 Total Bilirubin 0.4 mg/dL (0.15-1.2) 12/16/24 18:16 AST 18 U/L (0-40) 12/16/24 18:16 ALT 13 U/L (0-41) 12/16/24 18:16 Alkaline Phosphatase 104 U/L (40-130) 12/16/24 18:16 Troponin T Baseline 51 ng/L (0-15) H 12/16/24 18:16 NT-Pro-B Natriuret Pep 5377 pg/mL (0-450) H 12/16/24 18:16 Total Protein 6.4 g/dL (6.6-8.7) L 12/16/24 18:16 Albumin 3.9 g/dL (3.5-5.2) 12/16/24 18:16 Globulin 2.5 g/dL (1.3-4.6) 12/16/24 18:16 Influenza A (PCR) Negative (Negative) 12/16/24 18:26 Influenza Type B (PCR) Negative (Negative) 12/16/24 18:26 RSV (PCR) Negative (Negative) 12/16/24 18:26 SARS-CoV-2 (PCR) Negative (Negative) 12/16/24 18:26 All radiology interpretation(s) finalized by discharge Discharge Plan Discharge Patient Disposition: Home Clinical Impression: Acute bronchitis Condition: Stable Prescriptions: New doxycycline hyclate 100 mg capsule 100 mg PO BID 7 Days Qty: 14 0RF dexamethasone 6 mg tablet 6 mg PO DAILY 5 Days Qty: 5 0RF albuterol sulfate 90 mcg/actuation HFA aerosol inhaler 2 inh inhalation Q4H PRN (Reason: shortness of breath or wheezing) Qty: 6.7 0RF Rx Instructions: Please provide patient with a spacer No Action atorvastatin [Lipitor] 20 mg tablet 20 mg PO DAILY Qty: 90 1RF pantoprazole 20 mg tablet,delayed release (DR/EC) 20 mg PO DAILY Qty: 90 0RF sertraline [Zoloft] 25 mg tablet 25 mg PO DAILY Qty: 90 0RF doxycycline hyclate 100 mg capsule 100 mg PO BID 10 Days Qty: 20 0RF mupirocin [Centany] 2 % ointment 1 applic topical BID Qty: 22 0RF carvedilol 12.5 mg tablet 6.25 mg PO DAILY Rx Instructions: must administer with a meal/food amlodipine 5 mg tablet 5 mg PO BID tamsulosin 0.4 mg capsule 0.4 mg PO QPM Qty: 90 3RF Synthroid 50 mcg tablet 50 mcg PO QAM Qty: 90 3RF docusate sodium 100 mg capsule 100 mg PO BID Qty: 180 2RF aspirin 81 mg Tablet,Chewable 81 mg PO QAM Qty: 90 3RF finasteride 5 mg tablet 5 mg PO DAILY Men's Daily Formula 400-20-300 mcg Tablet 1 tab PO QAM Discharge Orders: Discharge ED (Routine); Ordered 12/16/24 Ordered By: Kate Randolph Referrals: Aicha Moran MD [Primary Care Provider, [facility]] Discharge Diet: Usual diet Discharge Activity: Increase activity as tolerated Patient Instructions: Acute Bronchitis (ED), Opioid Safety, Pain Management, Patient Portal & Silviano Instructions Activity Restrictions/Additional Instructions: Thank you for choosing [facility] for your healthcare needs today. You have been screened and evaluated and felt safe for discharge. Health conditions do change or evolve sometimes and as such it is important that you follow up with your Primary Doctor to be re checked, 3-5 days is a general good time frame for follow up. You are always welcome to return to the ED for re assessment if your symptoms are worsening or you have new concerns Print Language: Korean Coding Level of Care Code ED Senior Staff Consultant for Gilbert Bettencourt
--- NOTE | 2024-12-16 17:54 | XRR_ITS ---
PROCEDURE INFORMATION: Exam: XR Chest Exam date and time: 12/16/2024 5:56 PM Age: 84 years old Clinical indication: Shortness of breath TECHNIQUE: Imaging protocol: Radiologic exam of the chest. Views: 1 view. COMPARISON: CR XR chest 1V portable [id number] 04/23/2024 11:54 AM FINDINGS: Tubes, catheters and devices: Left chest ICD versus pacemaker. Post cardiac surgery residuals. Lungs: A few scattered nonspecific although chronic appearing pulmonary strands. Pleural spaces: Unremarkable. No pleural effusion. No pneumothorax. Heart/Mediastinum: See Tubes, catheters and devices finding. Bones/joints: Unremarkable. Single-view. XR/XR chest 1V portable [id number] IMPRESSION: No definite acute infiltrate or effusion
[2024-12-16 17:55] VITALS: BP 143/90; PULSE 54; RESP 24; TEMP 36.6; O2SAT 94; BMI 23.7
--- NOTE | 2024-12-16 18:08 | ECG_ITS ---
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
[2024-12-16 18:17] LABS: Hematocrit 43.2 % (37-53); Hemoglobin 14.80 g/dL (11.27-16.99); Mean Corpuscular HGB Conc 34.3 g/dL (30-55); Mean Corpuscular Hemoglobin 33.0 pg (27-33); Mean Corpuscular Volume 96.4 fl (82-101); Nucleated Red Blood Cells % 0 %; Platelet Count 121 10^3/cmm (157-399); Red Blood Count 4.48 10^6/uL (3.85-5.65); White Blood Count 5.93 10^3/uL (3.29-11.43)
[2024-12-16 18:49] LABS: Troponin(5th) Baseline 51 ng/L (0-15)
[2024-12-16 18:49] LABS: Lactic Sepsis W/Reflex 1.3 mmol/L (0.5-2.2)
[2024-12-16 18:59] LABS: Alanine Aminotransferase 13 U/L (0-41); Albumin Level 3.9 g/dL (3.5-5.2); Alkaline Phosphatase 104 U/L (40-130); Anion Gap 16.2 (5-19); Aspartate Amino Transferase 18 U/L (0-40); Blood Urea Nitrogen 28 mg/dL (8-23); Calcium 8.9 mg/dL (8.5-10.5); Carbon Dioxide 24 mmol/L (22-29); Chloride 107 mmol/L (98-107); Creatinine Clr Calc Pharmacy 38.4803; Globulin 2.5 g/dL (1.3-4.6); Glucose 126 mg/dL (65-115); NT Pro B Type Natriuretic Pept 5377 pg/mL (0-450); Osmolality Calculated 303 mOsm/kg (285-295); Potassium 4.2 mmol/L (3.5-5.1); Sodium 143 mmol/L (136-145); Total Protein 6.4 g/dL (6.6-8.7)
[2024-12-16 19:04] VITALS: BP 109/77; PULSE 50; O2SAT 93
[2024-12-16 19:22] LABS: Respiratory Syncytial Virus Ce NEGATIVE (Negative); SARS-CoV-2 PCR NEGATIVE (Negative)
[2024-12-16 20:04] VITALS: BP 126/88; PULSE 52; O2SAT 94
[2024-12-16 20:29] LABS: Troponin 5 2HR 50.48 ng/L (0-15); Troponin 5 2HR Delta -0.52 ABS# (0-10)
== END 2024-12-16 20:15 | disposition home or self-care (01) ==
PROVIDERS: Emergency Provider Emergency Medicine; PCP Family Medicine
DX: J20.9 Acute bronchitis, unspecified (principal); Z11.52 Encounter for screening for COVID-19; Z79.82 Long term (current) use of aspirin; I25.10 Atherosclerotic heart disease of native coronary artery without angina pectoris; Z95.810 Presence of automatic (implantable) cardiac defibrillator; E78.5 Hyperlipidemia, unspecified; I13.0 Hypertensive heart and chronic kidney disease with heart failure and stage 1 through stage 4 chronic kidney disease, or unspecified chronic kidney disease; N18.9 Chronic kidney disease, unspecified; I50.20 Unspecified systolic (congestive) heart failure
CPT/HCPCS: 36415; 71045; 80053; 83605; 83880; 84484; 85025; 87040; 87637; 93005; 96374; 99285; J1100; J9999

== ENCOUNTER → 2025-02-02 12:26 | Outpatient (BNVA) | payer MEDICARE, SELFPAY | PROVIDERS: PCP Family Medicine; Visit Provider Family Medicine | DX: I10 Essential (primary) hypertension (principal) | CPT/HCPCS: 80048 ==